=== PATIENT | female | born 1960 | race Caucasian/White ===

== ENCOUNTER 2022-01-16 02:38 | Inpatient (IN) | payer SELFPAY ==
[~2022-01-16] VITALS: Ht 170.2 cm; Wt 61.0 kg
[~2022-01-16 02:38] MED LIST: ASP325TEC PO; ATEN25TA PO; CLOP75TA PO; DRISDOL 50000 UNIT PO; FURO40TA4 PO; LEVE1U SQ; LISI5TAB PO; LVT.05T PO; MAGN400T6 PO; MTF500T PO; PHEN200T27 PO; POTA20TA15 PO; PRD20T PO; PRV20T PO; SULF-222 PO; SULF1TAB38 PO
[2022-01-16] MEDS ORDERED: NS IV 1000 ML 1,000 ML IV SCH ×5 (02:45→13:00)
--- NOTE | 2022-01-16 03:01 | ED General ---
General Chief Complaint: Respiratory Problems Stated Complaint: SOB Nursing Triage Note: Patient presented to the ER tonight via EMS with complaints of shortness of breath that began approximately 6 hours ago. Source of Information: Patient (LIMITED HISTORIAN), EMS, Old Records History of Present Illness Date Seen by Provider: Jan 16, 2022 Time Seen by Provider: 02:41 Initial Comments PT ARRIVES VIA EMS FROM HOME C/O SHORTNESS OF BREATH THAT BEGAN ABOUT 6 HOURS AGO WHEN SHE WAS MOVING [facility] EMS REPORT THAT PT WAS HYPERVENTILATING ON ARRIVAL AND THEY PLACED HER ON O2 AT 6L/NC--O2 SAT 96% ON 6L/NC--NO INITIAL O2 SAT OBTAINED PT HAS BEEN ON INSULIN IN THE PAST, BUT SHE QUIT TAKING IT OVER 11 YEARS AGO STATES SHE DOES NOT SEE A DR ANYWHERE AND HAS NOT BEEN TO A DR IN YEARS ACCUCHECK 452 BY EMS DOES STATE SHE IS ALWAYS THIRSTY AND URINATES FREQUENTLY, BUT NO PAIN/BURNING ON URINATION PT DENIES CHEST PAIN DENIES COUGH OR RECENT ILLNESS DENIES FEVER DENIES SORE THROAT DENIES GI SYMPTOMS DENIES SWELLING IN LEGS/FEET PT SMOKES 1 1/2 PPD DENIES ETOH OR DRUG USE PT HAS NOT BEEN HERE SINCE 2012 PT WAS LAST ADMITTED HERE IN 2009 WITH [place]--HAD CARDIAC CATH X 2 WITH STENTS PLACED. PT HAS NOT FOLLOWED UP WITH ANYONE SINCE THEN. PT HAS HAD COVID-19 VACCINE X 2--SECOND SHOT 11/18/2021 HAS ALSO HAD FLU SHOT THIS SEASON PCP: NONE Allergies and Home Medications Allergies Coded Allergies: No Known Drug Allergies (Unverified , 08/21/10) Patient Home Medication List Aspirin (Aspirin Ec 325 Mg) 325 Mg Tabec, 325 MG PO DAILY, (Reported) Entered as Reported by: THUY LIZAMA on 08/24/10 1017 Atenolol (Tenormin 25 Mg) 25 Mg Tablet, 25 MG PO DAILY, (Reported) Entered as Reported by: THUY LIZAMA on 08/24/10 1017 Clopidogrel Bisulfate (Plavix 75 Mg) 75 Mg Tablet, 75 MG PO DAILY, (Reported) Entered as Reported by: THUY LIZAMA on 08/24/10 1017 Furosemide (Furosemide) 40 Mg Tablet, 60 MG PO DAILY, (Reported) Entered as Reported by: THUY LIZAMA on 08/24/10 1017 Insulin Determir (Levemir Pen) 100 U/Ml Insuln.pen, 15 UNITS SQ HS, (Reported) Entered as Reported by: THUY LIZAMA on 08/24/10 1028 Levothyroxine Sodium (Levothyroxine 50 Mcg Tab) 50 Mcg Tablet, 1 EACH PO DAILY, (Reported) Entered as Reported by: COLT CRISTINA on 08/21/10 0913 Levothyroxine Sodium (Levothyroxine 50 Mcg Tab) 50 Mcg Tablet, 1 EACH PO DAILY Prescribed by: WINTER JENNINGS on 07/27/13 1702 Lisinopril (Zestril) 5 Mg Tablet, 5 MG PO DAILY, (Reported) Entered as Reported by: THUY LIZAMA on 08/24/10 101 Magnesium Oxide (Magnesium Oxide) 400 Mg Tablet, 400 MG PO DAILY, (Reported) Entered as Reported by: THUY LIZAMA on 08/24/10 1017 Metformin Hcl (Metformin 500 Mg) 500 Mg Tablet, 2 EACH PO BID WITH MEALS, (Reported) Entered as Reported by: COLT CRISTINA on 08/21/10 09 Phenazopyridine Hcl (Pyridium) 200 Mg Tablet, 1 EACH PO TID PRN Prescribed by: WINTER JENNINGS on 07/27/13 1657 Potassium Chloride (Potassium Chloride 20 Meq Tab) 20 Meq Tab.prt.sr, 20 MEQ PO DAILY, (Reported) Entered as Reported by: THUY LIZAMA on 08/24/10 101 Pravastatin Sodium (Pravachol) 20 Mg Tablet, 20 MG PO HS, (Reported) Entered as Reported by: THUY LIZAMA on 08/24/10 1017 Trimethoprim/Sulfamethoxazole (Bactrim Ds) 1 Ea Tablet, 1 EA PO BID Prescribed by: FAY BENNETT on 09/03/13 1542 Review of Systems Review of Systems Constitutional: no symptoms reported EENTM: no symptoms reported Respiratory: see HPI Cardiovascular: no symptoms reported Gastrointestinal: no symptoms reported Genitourinary: frequency Musculoskeletal: no symptoms reported Skin: no symptoms reported Psychiatric/Neurological: No Symptoms Reported Hematologic/Lymphatic: No Symptoms Reported Immunological/Allergic: no symptoms reported Past Snlsgxo-Psxhdf-Kinszj Hx Patient Social History Tobacco Use?: Yes Tobacco type used: Cigarettes Smoking Status: Current Everyday Smoker Substance use?: No Alcohol Use?: No Immunizations Up To Date Tetanus Booster (TDap): Unknown Seasonal Allergies Seasonal Allergies: No Past Medical History Surgery/Hospitalization HX: DIABETIC Surgeries: Yes Adenoidectomy, Cardiac, Coronary Stent, Tonsillectomy Respiratory: No Cardiac: Yes (STEMI 2009 WITH STENTS X 3 TO LAD; CHF) Cardiomyopathy, Coronary Artery Disease, Heart Attack, High Cholesterol, Hypertension Neurological: No Reproductive Disorders: No 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 MAYES-ANGIOPLASTY + STENT TO LAD; EF 25-30% -09/01/2010--CARDIAC CATH BY DR. MAYES--STENTS X 2 TO LAD; Physical Exam Vital Signs Vital Signs - First Documented 01/16/22 01/16/22 02:42 02:52 Temp 37.8 Pulse 113 Resp 28 B/P (MAP) 131/78 (95) Pulse Ox 93 O2 Delivery Nasal Cannula O2 Flow Rate 3.00 FiO2 100 Capillary Refill : Less Than 3 Seconds Height, Weight, BMI Height: '" Weight: 146lbs. oz. 66.593458wp; 20.00 BMI Method:Stated General Appearance: Thin, Other (MILD HYPERVENTILATION. PT REEKS OF CIGARETTES, IS DIRTY AND UNKEMPT, COVERED IN ANIMAL HAIR. SOMEWHAT LETHARGIC, VERY TALKATIVE, SPEECH IS CLEAR. ) HEENT: PERRL/EOMI, Other (ORAL MUCOSA DRY) Neck: Normal Inspection Respiratory: Normal Breath Sounds, No Accessory Muscle Use, No Respiratory Distress Cardiovascular: No JVD, No Murmur, Tachycardia Gastrointestinal: Non Tender, Soft Extremity: Pedal Edema (1+ BILATERALLY WITH CHRONIC VENOUS STASIS CHANGES BILATERALLY) Neurologic/Psychiatric: Alert, Oriented x3, No Motor/Sensory Deficits, cultural historian II- XII Norm as Tested Skin: Normal Color, Warm/Dry Focused Exam Lactate Level 01/16/22 02:50: Lactic Acid Level 2.28*H Lactic Acid Level Laboratory Tests Test 01/16/22 02:50 Lactic Acid Level 2.28 MMOL/L (0.50-2.00) *H Progress/Results/Core Measures Suspected Sepsis SIRS Temperature: Pulse: 113 Respiratory Rate: 28 Laboratory Tests 01/16/22 02:50: White Blood Count 10.8 Blood Pressure 131 /78 Mean: 95 01/16/22 02:50: Lactic Acid Level 2.28*H Laboratory Tests 01/16/22 02:50: Creatinine 1.14, INR Comment 1.0, Platelet Count 277, Total Bilirubin 0.6 Results/Orders Lab Results Laboratory Tests Test 01/16/22 02:47 01/16/22 02:50 01/16/22 02:54 01/16/22 02:57 Range/Units Glucometer 436 *H 70-110 MG/DL White Blood Count 10.8 4.3-11.0 10^3/uL Red Blood Count 4.33 3.80-5.11 10^6/uL Hemoglobin 12.6 11.5-16.0 g/dL Hematocrit 39 35-52 % Mean Corpuscular Volume 90 80-99 fL Mean Corpuscular Hemoglobin 29 25-34 pg Mean Corpuscular Hemoglobin Concent 32 32-36 g/dL Red Cell Distribution Width 14.1 10.0-14.5 % Platelet Count 277 130-400 10^3/uL Mean Platelet Volume 10.8 9.0-12.2 fL Immature Granulocyte % (Auto) 0 % Neutrophils (%) (Auto) 90 H 42-75 % Lymphocytes (%) (Auto) 5 L 12-44 % Monocytes (%) (Auto) 4 0-12 % Eosinophils (%) (Auto) 0 0-10 % Basophils (%) (Auto) 0 0-10 % Neutrophils # (Auto) 9.7 H 1.8-7.8 10^3/uL Lymphocytes # (Auto) 0.5 L 1.0-4.0 10^3/uL Monocytes # (Auto) 0.5 0.0-1.0 10^3/uL Eosinophils # (Auto) 0.0 0.0-0.3 10^3/uL Basophils # (Auto) 0.0 0.0-0.1 10^3/uL Immature Granulocyte # (Auto) 0.0 0.0-0.1 10^3/uL Neutrophils % (Manual) 87 % Lymphocytes % (Manual) 2 % Monocytes % (Manual) 3 % Band Neutrophils 8 % Blood Morphology Comment NORMAL Erythrocyte Sedimentation Rate 31 H 0-30 MM/HR Prothrombin Time 13.7 12.2-14.7 SEC INR Comment 1.0 0.8-1.4 Activated Partial Thromboplast Time 35 24-35 SEC D-Dimer 1.65 H 0.00-0.49 UG/ML Sodium Level 137 135-145 MMOL/L Potassium Level 3.6 3.6-5.0 MMOL/L Chloride Level 99 98-107 MMOL/L Carbon Dioxide Level 21 21-32 MMOL/L Anion Gap 17 H 5-14 MMOL/L Blood Urea Nitrogen 19 H 7-18 MG/DL Creatinine 1.14 0.60-1.30 MG/DL Estimat Glomerular Filtration Rate 55 BUN/Creatinine Ratio 17 Glucose Level 480 *H 70-105 MG/DL Lactic Acid Level 2.28 *H 0.50-2.00 MMOL/L Calcium Level 9.7 8.5-10.1 MG/DL Corrected Calcium 10.3 H 8.5-10.1 MG/DL Magnesium Level 1.7 1.6-2.4 MG/DL Total Bilirubin 0.6 0.1-1.0 MG/DL Aspartate Amino Transf (AST/SGOT) 15 5-34 U/L Alanine Aminotransferase (ALT/SGPT) 10 0-55 U/L Alkaline Phosphatase 108 40-136 U/L Lactate Dehydrogenase 210 125-220 U/L Total Creatine Kinase 29 29-168 U/L Creatine Kinase MB 1.6 <6.6 NG/ML Myoglobin 96.7 H 10.0-92.0 NG/ML Troponin I 0.055 H <0.028 NG/ML C-Reactive Protein High Sensitivity 17.04 H 0.00-0.50 MG/DL B-Type Natriuretic Peptide 644.3 H <100.0 PG/ML Total Protein 7.1 6.4-8.2 GM/DL Albumin 3.2 3.2-4.5 GM/DL Amylase Level 29 25-125 U/L Lipase 18 8-78 U/L Beta-Hydroxybutyrate (Chem panel) 0.98 H 0.00-0.27 MMOL/L Procalcitonin 0.15 H <0.10 NG/ML Free Thyroxine 0.96 0.70-1.48 NG/DL TSH [place] Testing 8.18 H 0.35-4.94 UIU/ML Acetaminophen Level < 10 L 10-30 UG/ML Serum Alcohol < 10 <10 MG/DL Influenza Type A (RT-PCR) Not Detected Not Detecte Influenza Type B (RT-PCR) Not Detected Not Detecte SARS-CoV-2 RNA (RT-PCR) Not Detected Not Detecte Urine Color YELLOW Urine Clarity CLEAR Urine pH 6.0 5-9 Urine Specific [place] 1.025 H 1.016-1.022 Urine Protein 2+ H NEGATIVE Urine Glucose (UA) 3+ H NEGATIVE Urine Ketones 1+ H NEGATIVE Urine Nitrite POSITIVE H NEGATIVE Urine Bilirubin NEGATIVE NEGATIVE Urine Urobilinogen 1.0 < = 1.0 MG/DL Urine Leukocyte Esterase 1+ H NEGATIVE Urine RBC (Auto) TRACE-I H NEGATIVE Urine RBC RARE /HPF Urine WBC 50-100 H /HPF Urine Crystals NONE /LPF Urine Bacteria LARGE H /HPF Urine Casts NONE /LPF Urine Mucus NEGATIVE /LPF Urine Culture Indicated CULTURE PENDING Urine Opiates Screen NEGATIVE NEGATIVE Urine Oxycodone Screen NEGATIVE NEGATIVE Urine Methadone Screen NEGATIVE NEGATIVE Urine Propoxyphene Screen NEGATIVE NEGATIVE Urine Barbiturates Screen NEGATIVE NEGATIVE Ur Tricyclic Antidepressants Screen NEGATIVE NEGATIVE Urine Phencyclidine Screen NEGATIVE NEGATIVE Urine Amphetamines Screen NEGATIVE NEGATIVE Urine Methamphetamines Screen NEGATIVE NEGATIVE Urine Benzodiazepines Screen NEGATIVE NEGATIVE Urine Cocaine Screen NEGATIVE NEGATIVE Urine Cannabinoids Screen NEGATIVE NEGATIVE Test 01/16/22 03:00 Range/Units Blood Gas Puncture Site RIGHT RADIAL Blood Gas Patient Temperature 37.8 Arterial Blood pH 7.43 7.37-7.43 Arterial Blood Partial Pressure CO2 38 35-45 MMHG Arterial Blood Partial Pressure O2 68 L 79-93 MMHG Arterial Blood HCO3 24 23-27 MMOL/L Arterial Blood Total CO2 25.2 21.0-31.0 MMOL/L Arterial Blood Oxygen Saturation 94 94-100 % Arterial Blood Base Excess 0.3 -2.5-2.5 MMOL/L [place] Test YES-POS Blood Gas Ventilator Setting NO Blood Gas Inspired Oxygen 2L My Orders Orders - ANAI AHUJA DO Accucheck Stat ONCE (01/16/22 02:41) Ed Iv/Invasive Line Start (01/16/22 02:41) Ekg Tracing (01/16/22 02:41) Catheter(Urinary) Insert & Ass 03,15 (01/16/22 02:41) O2 (01/16/22 02:41) Monitor-Rhythm Ecg Trace Only (01/16/22 02:41) Chest 1 View, Ap/Pa Only (01/16/22 02:41) Acetaminophen (01/16/22 02:41) Alcohol (01/16/22 02:41) Amylase (01/16/22 02:41) Arterial Blood Gas (01/16/22 02:41) Bnp [place] (01/16/22 02:41) Cbc With Automated Diff (01/16/22 02:41) Comprehensive Metabolic Panel (01/16/22 02:41) Creatine Kinase (01/16/22 02:41) Creatine Kinase Mb (01/16/22 02:41) Hs C Reactive Protein (01/16/22 02:41) Fibrin Degradation Products (01/16/22 02:41) Drug Screen Stat (Urine) (01/16/22 02:41) Lactic Acid Analyzer (01/16/22 02:41) Lipase (01/16/22 02:41) Magnesium (01/16/22 02:41) Procalcitonin (Pct) (01/16/22 02:41) Protime With Inr (01/16/22 02:41) Partial Thromboplastin Time (01/16/22 02:41) Thyroid Analyzer (01/16/22 02:41) Ua Culture If Indicated (01/16/22 02:41) Erythrocyte Sedimentation Rate (01/16/22 02:41) Myoglobin Serum (01/16/22 02:41) Troponin I [place] (01/16/22 02:41) Ed Iv/Invasive Line Start (01/16/22 02:41) Ns Iv 1000 Ml (Sodium Chloride 0.9%) (01/16/22 02:45) LDH (01/16/22 02:41) Covid 19 Inhouse Test (01/16/22 02:41) Influenza A And B By Pcr (01/16/22 02:41) Isolation Central Supply Req (01/16/22 02:41) Beta Hydroxybutyrate (01/16/22 02:41) Hemoglobin A1c (01/16/22 02:41) Blood Culture (01/16/22 02:41) Urine Culture (01/16/22 03:03) Acetaminophen Tablet (Tylenol Tablet) (01/16/22 03:15) Ed Iv/Invasive Line Start (01/16/22 03:03) Vital Signs Adult Sepsis Patie Q15M (01/16/22 03:03) O2 (01/16/22 03:03) Remove Rings In Anticipation O (01/16/22 03:03) Manual Differential (01/16/22 02:50) Ed Iv/Invasive Line Start (01/16/22 03:52) Ns Iv 1000 Ml (Sodium Chloride 0.9%) (01/16/22 04:00) Insulin (Regular) Human (Novolin R (Per (01/16/22 04:00) Free T4 (Free Thyroxine) (01/16/22 02:50) Furosemide Injection (Lasix Injection) (01/16/22 04:00) Ceftriaxone 1 Gm Pre-Mix (Rocephin 1 Gm (01/16/22 03:59) Medications Given in ED Current Medications Medications Dose Ordered Sig/Vasile Route Start Time Stop Time Status Last Admin Dose Admin Acetaminophen 1,000 mg ONCE PRN PO 01/16/22 03:15 01/16/22 04:09 DC 01/16/22 04:08 1,000 MG Furosemide 80 mg ONCE ONCE IVP 01/16/22 04:00 01/16/22 04:01 DC 01/16/22 04:16 80 MG Insulin Human Regular 20 unit ONCE ONCE IV 01/16/22 04:00 01/16/22 04:01 DC 01/16/22 04:09 20 UNIT Vital Signs/I&O 01/16/22 01/16/22 01/16/22 02:42 02:42 02:52 Temp 37.8 Pulse 113 Resp 28 B/P (MAP) 131/78 (95) Pulse Ox 93 94 O2 Delivery Nasal Cannula Nasal Cannula Nasal Cannula O2 Flow Rate 3.00 3.00 3.00 FiO2 100 Capillary Refill : Less Than 3 Seconds Blood Pressure Mean: 95 Progress Note : Progress Note TEMP 100 ON ARRIVAL, SEPSIS PROTOCOL INITIATED O2 SAT 91% ON 2L/NC--UP TO 96% ON 4L/NC BLOOD GLUCOSE 439 ON ARRIVAL HERE GIVEN IV FLUIDS AND INSULIN REPEAT GLUCOSE 264 AT TIME OF ADMIT GIVEN LASIX FOR CHF GIVEN ROCEPHIN FOR UTI GIVEN LOVENOX FOR ANTICOAGULATION WITH ELEVATED TROPONIN AND D-DIMER NO DETERIORATION IN PT'S CONDITION DURING ER STAY PT TAKEN FROM ER TO XRAY DEPT FOR CT CHEST ANGIOGRAM AND THEN UP TO ICU--NO CT REPORT AT TIME OF ADMIT. PT STATES SHE WISHES TO BE A FULL CODE ECG Initial ECG Impression Date: Jan 16, 2022 Initial ECG Impression Time: 02:45 Initial ECG Rate: 116 Initial ECG Rhythm: S.Tach Initial ECG Impression: Nonspecific Changes Departure Departure-Patient Inst. Referrals: [facility] (PCP/Family) Primary Care Physician ANAI AHUJA DO Jan 16, 2022 03:01
[2022-01-16 03:08] LABS: BASOPHILS % (AUTO) 0 % (0-10); EOSINOPHILS % (AUTO) 0 % (0-10); HEMATOCRIT 39 % (35-52); HEMOGLOBIN 12.6 g/dL (11.5-16.0); LYMPHOCYTES # (AUTO) 0.5 10^3/uL (1.0-4.0); LYMPHOCYTES % (AUTO) 5 % (12-44); MEAN CORPUSCULAR HEMOGLOBIN 29 pg (25-34); MEAN CORPUSCULAR HGB CONC 32 g/dL (32-36); MEAN CORPUSCULAR VOLUME 90 fL (80-99); MEAN PLATELET VOLUME 10.8 fL (9.0-12.2); MONOCYTES # (AUTO) 0.5 10^3/uL (0.0-1.0); MONOCYTES % (AUTO) 4 % (0-12); NEUTROPHILS # (AUTO) 9.7 10^3/uL (1.8-7.8); NEUTROPHILS % (AUTO) 90 % (42-75); PLATELET COUNT 277 10^3/uL (130-400); WHITE BLOOD COUNT 10.8 10^3/uL (4.3-11.0)
[2022-01-16 03:09] LABS: BILIRUBIN,URINE NEGATIVE (NEGATIVE); CLARITY,URINE CLEAR; COLOR,URINE YELLOW; GLUCOSE, URINE (UA) 3+ (NEGATIVE); KETONES,URINE 1+ (NEGATIVE); LEUKOCYTE ESTERASE ,URINE 1+ (NEGATIVE); NITRITE,URINE POSITIVE (NEGATIVE); PROTEIN,URINE 2+ (NEGATIVE)
[2022-01-16] MEDS ORDERED: ACETAMINOPHEN 500 MG TAB (TYLENOL) PO PRN ×2 (03:15→05:30)
[2022-01-16 03:24] LABS: ALBUMIN 3.2 GM/DL (3.2-4.5); CHLORIDE 99 MMOL/L (98-107); POTASSIUM 3.6 MMOL/L (3.6-5.0); SODIUM 137 MMOL/L (135-145)
[2022-01-16 03:25] LABS: CALCIUM 9.7 MG/DL (8.5-10.1); FIBRIN DEGRADATION PRODUCTS 1.65 UG/ML (0.00-0.49); PROTHROMBIN TIME PATIENT 13.7 SEC (12.2-14.7)
[2022-01-16 03:26] LABS: AMYLASE 29 U/L (25-125)
[2022-01-16 03:27] LABS: TOTAL PROTEIN 7.1 GM/DL (6.4-8.2)
[2022-01-16 03:28] LABS: BILIRUBIN,TOTAL 0.6 MG/DL (0.1-1.0); CARBON DIOXIDE 21 MMOL/L (21-32)
[2022-01-16 03:28] LABS: AMPHETAMINE SCREEN, URINE NEGATIVE (NEGATIVE); BARBITURATE SCREEN URINE NEGATIVE (NEGATIVE); BENZODIAZEPINES SCREEN URINE NEGATIVE (NEGATIVE); CANNABINOID SCREEN, URINE NEGATIVE (NEGATIVE); COCAINE SCREEN URINE NEGATIVE (NEGATIVE); METHADONE STAT NEGATIVE (NEGATIVE); METHAMPHETAMINE SCREEN URINE S NEGATIVE (NEGATIVE); OPIATE SCREEN URINE NEGATIVE (NEGATIVE); OXYCODONE STAT NEGATIVE (NEGATIVE); PROPOXYPHENE STAT NEGATIVE (NEGATIVE); TRICYCLIC ANTIDEPRESSANTS SCRE NEGATIVE (NEGATIVE)
[2022-01-16 03:30] LABS: ABG BASE EXCESS 0.3 MMOL/L (-2.5-2.5); ABG OXYGEN SATURATION 94 % (94-100); ABG PCO2 38 MMHG (35-45); ABG PH 7.43 (7.37-7.43); ABG PO2 68 MMHG (79-93); ABG TCO2 25.2 MMOL/L (21.0-31.0)
[2022-01-16 03:30] LABS: ALKALINE PHOSPHATASE 108 U/L (40-136); CREATININE SERUM 1.14 MG/DL (0.60-1.30); GFR ESTIMATED 55
[2022-01-16 03:31] LABS: BUN/CREATININE RATIO 17
[2022-01-16 03:32] LABS: ALLENS TEST YES-POS; INSPIRED O2 2L; PATIENT TEMP 37.8; VENTILATOR NO
[2022-01-16 03:33] LABS: ALANINE AMINOTRANSFERASE 10 U/L (0-55); MAGNESIUM 1.7 MG/DL (1.6-2.4)
[2022-01-16 03:35] LABS: CREATINE KINASE 29 U/L (29-168); LIPASE 18 U/L (8-78)
[2022-01-16 03:42] LABS: CREATINE KINASE MB 1.6 NG/ML (<6.6)
[2022-01-16 03:43] LABS: BAND NEUTROPHILS 8 %; LYMPHOCYTES % (MANUAL) 2 %; MONOCYTES % (MANUAL) 3 %; NEUTROPHILS % (MANUAL) 87 %; RBC MORPH NORMAL
[2022-01-16 03:45] LABS: ACETAMINOPHEN < 10 UG/ML (10-30); GLUCOSE 480 MG/DL (70-105)
[2022-01-16 03:46] LABS: BACTERIA,URINE LARGE /HPF; RBC,URINE RARE /HPF; WBC,URINE 50-100 /HPF
[2022-01-16 03:49] LABS: ERYTHROCYTE SEDIMENTATION RATE 31 MM/HR (0-30)
[2022-01-16 03:55] LABS: TSH (THYROID ANALYZER) 8.18 UIU/ML (0.35-4.94)
[2022-01-16] MEDS ORDERED: cefTRIAXone 1 GM PRE-MIX 50 ML IV STA (03:59)
[2022-01-16] MEDS ORDERED: inSUlin (REGULAR) HUMAN 1 UNIT/0.01 ML (CHARGE PER UNIT) IV ONE (04:00)
[2022-01-16] MEDS ORDERED: FUROSEMIDE 40 MG/4 ML INJ (LASIX) IVP ONE (04:00)
[2022-01-16] MEDS ORDERED: ENOXAPARIN 60 MG/0.6 ML (LOVENOX) SYR SC ONE (04:15)
[2022-01-16 04:33] LABS: FREE T4 (FREE THYROXINE) 0.96 NG/DL (0.70-1.48)
[2022-01-16] MEDS: VASOPRESSIN INJECTION 20 UNIT in NS (IVPB) 100 ML IV SCH ×2 (05:10→17:07)
[2022-01-16] MEDS: NOREPINEPHRINE 8 MG/250 ML 250 ML IV SCH (05:10)
[2022-01-16] MEDS ORDERED: morphine INJ 4 MG/ML 1 ML (VIAL/SYRINGE) IV PRN (05:30)
[2022-01-16] MEDS ORDERED: NITROGLYCERIN 0.4 MG SL TABS BTL 25'S SL PRN (05:30)
[2022-01-16] MEDS ORDERED: EPINEPHrine 1 MG INJECTION 4 MG in NS (IVPB) 248 ML IV SCH (05:30)
[2022-01-16] MEDS ORDERED: ONDANSETRON 4 MG/2 ML (SDV) Z0FRAN IV PRN (05:30)
[2022-01-16] MEDS ORDERED: IOHEXOL 350 MG/ML 100 ML (OMNIPAQUE 350) VIAL IV ONE (05:45)
[2022-01-16] MEDS ORDERED: NS 100 ML (IVPB) BAG IV ONE (05:45)
[2022-01-16] MEDS ORDERED: HOLD METFORMIN - RECEIVED CONTRAST 20 ML VIAL IV SCH (05:45)
[2022-01-16] MEDS ORDERED: inSUlin ASPART (NovoLOG) 1 UNIT/0.01 ML (CHARGE PER UNIT) SC SCH (06:00)
[2022-01-16] MEDS: inSUlin ASPART (NovoLOG) 1 UNIT/0.01 ML (CHARGE PER UNIT) SC SCH ×3 (06:45→18:42)
[2022-01-16] MEDS: PANTOPRAZOLE 40 MG (PROTONIX) VIAL IV SCH (06:58)
--- NOTE | 2022-01-16 07:22 | Diagnostic Imaging Report ---
INDICATION: DYSPNEA. TECHNIQUE: Single view chest 3:50 AM. CORRELATION STUDY: 08/21/2010 FINDINGS: Heart size remains enlarged, mediastinum prominent. There is presence of pulmonary vascular congestion and perihilar edema. Bilateral pulmonary opacities particularly in the more central aspect of the lung ma. Prominent interstitial markings favoring edema. IMPRESSION: 1. Findings consistent with a likely pulmonary vascular congestion with a perihilar with pulmonary and interstitial edema. Superimposed infiltrate not excluded. Dictated by: Dictated on workstation # [id number]
--- NOTE | 2022-01-16 07:42 | Diagnostic Imaging Report ---
PROCEDURE: CT angiography of the chest with contrast. TECHNIQUE: Multiple contiguous axial images were obtained through the chest after uneventful bolus administration of intravenous contrast. 3D reconstructed CTA MIP acquisitions were also performed. Auto Exposure Controls were utilized during the CT exam to meet ALARA standards for radiation dose reduction. FINDINGS: There are no central or proximal segmental pulmonary emboli. There is atherosclerotic disease along the aorta. Multiple ulcerations noted along the descending aorta. No dissection. There is lymphadenopathy within the mediastinum and the perihilar regions bilaterally. There are bilateral pleural effusions right greater than left. Within the lungs diffuse scattered patchy airspace opacity seen throughout both lungs possibly due to COVID although nonspecific. There are also increased interstitial/coarsened interstitial markings suspicious for pulmonary edema. Upper abdominal structures unremarkable for acute abnormality. There is no acute osseous abnormality. IMPRESSION: 1. No evidence for pulmonary embolus. 2. Diffuse bilateral nonspecific infiltrates possibly due to COVID although other etiologies not excluded. 3. Bilateral pleural effusions with lymphadenopathy likely reactive. Followup recommended. 4. Atherosclerotic disease with areas of at least moderate if not significant stenosis of the left subclavian artery not mentioned in the body of the report. Pertinent findings agree with the preliminary report. Dictated by: Dictated on workstation # [id number]
[2022-01-16 08:48] LABS: CHOLESTEROL 96 MG/DL (< 200); HDL CHOLESTEROL 27 MG/DL (40-60); TRIGLYCERIDES 83 MG/DL (<150); VLDL CHOLESTEROL 17 MG/DL (5-40)
[2022-01-16] MEDS: ASPIRIN E.C. 81 MG (ECOTRIN) TAB PO SCH (09:05)
[2022-01-16] MEDS: KCL 20 MEQ TAB (K-DUR) PO SCH (09:05)
[2022-01-16] MEDS: MAGNESIUM 1 GM/100 ML IVPB 100 ML IV SCH (09:06)
[2022-01-16] MEDS: POTASSIUM CL 10MEQ/50ML IVPB 50 ML IV SCH (09:45)
--- NOTE | 2022-01-16 09:50 | Consultation-Cardiology ---
HPI-Cardiology Cardiology Consultation: Date of Consultation 01/16/22 Date of Admission 01/16/2022 Attending Physician Dalia Coppola MD Admitting Physician [place]/Count Includes [facility] Consulting Physician JACQUELYN OSORIO JR, MD HPI: Time Seen by a Provider: 09:45 Chief Complaint: Reason for consultation: Non-ST elevation myocardial infarction. I had the pleasure of seeing Gretta in the intensive care unit at [facility] in [place], [place] this morning. She has a history of coronary artery disease with a non-ST elevation myocardial infarction in 2009 and was treated w ith a drug-eluting stent to the left anterior descending coronary artery and later the left circumflex coronary artery at that time. She also has a history of ischemic cardiomyopathy with an ejection fraction of approximately 25% in 2009. She has not seen any physicians in a number of years. Yesterday she was at home and started developing shortness of breath while at rest. This gradually progressed throughout the evening and early this morning she was having such a difficult time breathing that she came to the emergency room for further evaluation. Her initial troponin level was mildly elevated but this morning, her troponin level has become much more significantly elevated. Because of the concern for non-ST elevation myocardial infarction, a cardiology consultation was requested. Her breathing is starting to improve. She denies any chest discomfort. She denies paroxysmal nocturnal dyspnea, orthopnea, palpitations, lightheadedness, syncope, or lower extremity edema. She smokes 1- 1/2 packs of cigarettes per day but states she will quit. She has been taking an Excedrin every day for general body aches but no prescription medications. Certain portions of this document may have been dictated utilizing voice recognition technology. Inherent to this technology, typographical and grammatical errors may exist. As much as I am diligent to identify and correct these mistakes, some errors may remain in the document. Review of Systems-Cardiology Review of Systems Other comments Review of 10 organ systems is as per the history of present illness, otherwise negative. [id number] Hx Patient Social History Smoking Status: Current Everyday Smoker Have you traveled recently?: No Alcohol Use?: No Pt feels they are or have been: No Tobacco type used: Cigarettes Immunizations Up To Date Tetanus Booster (TDap): Unknown Past Medical History PMH As described under Assessment. Family Medical History Family Medical History: The patient does not know of any family history of premature coronary artery disease in first-degree relatives. Allergies and Home Medications Allergies Coded Allergies: No Known Drug Allergies (Unverified , 08/21/10) Patient Home Medication List Home Medication List Reviewed: Yes Aspirin (Aspirin Ec 325 Mg) 325 Mg Tabec, 325 MG PO DAILY, (Reported) Entered as Reported by: THUY LIZAMA on 08/24/10 1017 Atenolol (Tenormin 25 Mg) 25 Mg Tablet, 25 MG PO DAILY, (Reported) Entered as Reported by: THUY LIZAMA on 08/24/10 101 Clopidogrel Bisulfate (Plavix 75 Mg) 75 Mg Tablet, 75 MG PO DAILY, (Reported) Entered as Reported by: THUY LIZAMA on 08/24/10 101 Furosemide (Furosemide) 40 Mg Tablet, 60 MG PO DAILY, (Reported) Entered as Reported by: THUY LIZAMA on 08/24/10 1017 Insulin Determir (Levemir Pen) 100 U/Ml Insuln.pen, 15 UNITS SQ HS, (Reported) Entered as Reported by: THUY LIZAMA on 08/24/10 1028 Levothyroxine Sodium (Levothyroxine 50 Mcg Tab) 50 Mcg Tablet, 1 EACH PO DAILY, (Reported) Entered as Reported by: COLT CRISTINA on 08/21/10 09 Levothyroxine Sodium (Levothyroxine 50 Mcg Tab) 50 Mcg Tablet, 1 EACH PO DAILY Prescribed by: WINTER JENNINGS on 07/27/13 1702 Lisinopril (Zestril) 5 Mg Tablet, 5 MG PO DAILY, (Reported) Entered as Reported by: THUY LIZAMA on 08/24/10 101 Magnesium Oxide (Magnesium Oxide) 400 Mg Tablet, 400 MG PO DAILY, (Reported) Entered as Reported by: THUY LIZAMA on 08/24/10 101 Metformin Hcl (Metformin 500 Mg) 500 Mg Tablet, 2 EACH PO BID WITH MEALS, (Reported) Entered as Reported by: COLT CRISTINA on 08/21/10 09 Phenazopyridine Hcl (Pyridium) 200 Mg Tablet, 1 EACH PO TID PRN Prescribed by: WINTER JENNINGS on 07/27/13 165 Potassium Chloride (Potassium Chloride 20 Meq Tab) 20 Meq Tab.prt.sr, 20 MEQ PO DAILY, (Reported) Entered as Reported by: THUY LIZAMA on 08/24/10 1017 Pravastatin Sodium (Pravachol) 20 Mg Tablet, 20 MG PO HS, (Reported) Entered as Reported by: THUY LIZAMA on 08/24/10 1017 Trimethoprim/Sulfamethoxazole (Bactrim Ds) 1 Ea Tablet, 1 EA PO BID Prescribed by: FAY BENNETT on 09/03/13 1542 Exam Vital Signs Vital Signs Date Time Temp Pulse Resp B/P (MAP) Pulse Ox O2 Delivery O2 Flow Rate FiO2 01/16/22 09:00 86 29 135/82 100 Nasal Cannula 3.00 01/16/22 05:30 37.0 01/16/22 02:52 100 Physical Exam General: Alert. No acute distress. Well nourished and appears stated age. She appears older than her stated age. Eye: Extraocular movements are intact. Conjunctivae are clear. There are no xanthelasma. HENT: Normocephalic. Atraumatic. Carotid pulsations 2/2 without bruits. Neck: Jugular venous pressure does not appear elevated. No thyromegaly appreciated. Respiratory: Lungs are clear to auscultation. Respirations are non-labored. Breath sounds are equal. Symmetrical chest wall expansion. Cardiovascular: Normal rate. Regular rhythm. No murmur. No gallop. Point of maximal impulse is not appear displaced. Good pulses equal in all extremities. No edema. Gastrointestinal: Soft. Normal bowel sounds. Skin: Skin turgor is normal. There is no pallor. Musculoskeletal: No kyphosis or scoliosis appreciated. Neurologic: Alert and oriented to person, place, time. Cranial nerves 3-12 appear grossly intact. The patient has good motor tone strength in the upper and lower extremities bilaterally. Psychiatric: Cooperative. Appropriate mood & affect. Labs Laboratory Tests Test 01/16/22 02:47 01/16/22 02:50 01/16/22 02:54 01/16/22 02:57 Range/Units Glucometer 436 *H 70-110 MG/DL White Blood Count 10.8 4.3-11.0 10^3/uL Red Blood Count 4.33 3.80-5.11 10^6/uL Hemoglobin 12.6 11.5-16.0 g/dL Hematocrit 39 35-52 % Mean Corpuscular Volume 90 80-99 fL Mean Corpuscular Hemoglobin 29 25-34 pg Mean Corpuscular Hemoglobin Concent 32 32-36 g/dL Red Cell Distribution Width 14.1 10.0-14.5 % Platelet Count 277 130-400 10^3/uL Mean Platelet Volume 10.8 9.0-12.2 fL Immature Granulocyte % (Auto) 0 % Neutrophils (%) (Auto) 90 H 42-75 % Lymphocytes (%) (Auto) 5 L 12-44 % Monocytes (%) (Auto) 4 0-12 % Eosinophils (%) (Auto) 0 0-10 % Basophils (%) (Auto) 0 0-10 % Neutrophils # (Auto) 9.7 H 1.8-7.8 10^3/uL Lymphocytes # (Auto) 0.5 L 1.0-4.0 10^3/uL Monocytes # (Auto) 0.5 0.0-1.0 10^3/uL Eosinophils # (Auto) 0.0 0.0-0.3 10^3/uL Basophils # (Auto) 0.0 0.0-0.1 10^3/uL Immature Granulocyte # (Auto) 0.0 0.0-0.1 10^3/uL Neutrophils % (Manual) 87 % Lymphocytes % (Manual) 2 % Monocytes % (Manual) 3 % Band Neutrophils 8 % Blood Morphology Comment NORMAL Erythrocyte Sedimentation Rate 31 H 0-30 MM/HR Prothrombin Time 13.7 12.2-14.7 SEC INR Comment 1.0 0.8-1.4 Activated Partial Thromboplast Time 35 24-35 SEC D-Dimer 1.65 H 0.00-0.49 UG/ML Sodium Level 137 135-145 MMOL/L Potassium Level 3.6 3.6-5.0 MMOL/L Chloride Level 99 98-107 MMOL/L Carbon Dioxide Level 21 21-32 MMOL/L Anion Gap 17 H 5-14 MMOL/L Blood Urea Nitrogen 19 H 7-18 MG/DL Creatinine 1.14 0.60-1.30 MG/DL Estimat Glomerular Filtration Rate 55 BUN/Creatinine Ratio 17 Glucose Level 480 *H 70-105 MG/DL Lactic Acid Level 2.28 *H 0.50-2.00 MMOL/L Calcium Level 9.7 8.5-10.1 MG/DL Corrected Calcium 10.3 H 8.5-10.1 MG/DL Magnesium Level 1.7 1.6-2.4 MG/DL Total Bilirubin 0.6 0.1-1.0 MG/DL Aspartate Amino Transf (AST/SGOT) 15 5-34 U/L Alanine Aminotransferase (ALT/SGPT) 10 0-55 U/L Alkaline Phosphatase 108 40-136 U/L Lactate Dehydrogenase 210 125-220 U/L Total Creatine Kinase 29 29-168 U/L Creatine Kinase MB 1.6 <6.6 NG/ML Myoglobin 96.7 H 10.0-92.0 NG/ML Troponin I 0.055 H <0.028 NG/ML C-Reactive Protein High Sensitivity 17.04 H 0.00-0.50 MG/DL B-Type Natriuretic Peptide 644.3 H <100.0 PG/ML Total Protein 7.1 6.4-8.2 GM/DL Albumin 3.2 3.2-4.5 GM/DL Amylase Level 29 25-125 U/L Lipase 18 8-78 U/L Beta-Hydroxybutyrate (Chem panel) 0.98 H 0.00-0.27 MMOL/L Procalcitonin 0.15 H <0.10 NG/ML Free Thyroxine 0.96 0.70-1.48 NG/DL TSH [place] Testing 8.18 H 0.35-4.94 UIU/ML Acetaminophen Level < 10 L 10-30 UG/ML Serum Alcohol < 10 <10 MG/DL Influenza Type A (RT-PCR) Not Detected Not Detecte Influenza Type B (RT-PCR) Not Detected Not Detecte SARS-CoV-2 RNA (RT-PCR) Not Detected Not Detecte Urine Color YELLOW Urine Clarity CLEAR Urine pH 6.0 5-9 Urine Specific [place] 1.025 H 1.016-1.022 Urine Protein 2+ H NEGATIVE Urine Glucose (UA) 3+ H NEGATIVE Urine Ketones 1+ H NEGATIVE Urine Nitrite POSITIVE H NEGATIVE Urine Bilirubin NEGATIVE NEGATIVE Urine Urobilinogen 1.0 < = 1.0 MG/DL Urine Leukocyte Esterase 1+ H NEGATIVE Urine RBC (Auto) TRACE-I H NEGATIVE Urine RBC RARE /HPF Urine WBC 50-100 H /HPF Urine Crystals NONE /LPF Urine Bacteria LARGE H /HPF Urine Casts NONE /LPF Urine Mucus NEGATIVE /LPF Urine Culture Indicated CULTURE PENDING Urine Opiates Screen NEGATIVE NEGATIVE Urine Oxycodone Screen NEGATIVE NEGATIVE Urine Methadone Screen NEGATIVE NEGATIVE Urine Propoxyphene Screen NEGATIVE NEGATIVE Urine Barbiturates Screen NEGATIVE NEGATIVE Ur Tricyclic Antidepressants Screen NEGATIVE NEGATIVE Urine Phencyclidine Screen NEGATIVE NEGATIVE Urine Amphetamines Screen NEGATIVE NEGATIVE Urine Methamphetamines Screen NEGATIVE NEGATIVE Urine Benzodiazepines Screen NEGATIVE NEGATIVE Urine Cocaine Screen NEGATIVE NEGATIVE Urine Cannabinoids Screen NEGATIVE NEGATIVE Test 01/16/22 03:00 01/16/22 06:14 01/16/22 06:40 01/16/22 08:17 Range/Units Blood Gas Puncture Site RIGHT RADIAL Blood Gas Patient Temperature 37.8 Arterial Blood pH 7.43 7.37-7.43 Arterial Blood Partial Pressure CO2 38 35-45 MMHG Arterial Blood Partial Pressure O2 68 L 79-93 MMHG Arterial Blood HCO3 24 23-27 MMOL/L Arterial Blood Total CO2 25.2 21.0-31.0 MMOL/L Arterial Blood Oxygen Saturation 94 94-100 % Arterial Blood Base Excess 0.3 -2.5-2.5 MMOL/L [place] Test YES-POS Blood Gas Ventilator Setting NO Blood Gas Inspired Oxygen 2L Lactic Acid Level 1.83 0.50-2.00 MMOL/L Glucometer 170 H 70-110 MG/DL Troponin I 17.564 *H <0.028 NG/ML Triglycerides Level 83 <150 MG/DL Cholesterol Level 96 < 200 MG/DL LDL Cholesterol Direct 61 1-129 MG/DL VLDL Cholesterol 17 5-40 MG/DL HDL Cholesterol 27 L 40-60 MG/DL ECG Impression ECG Comment Sinus rhythm with probable old anterior myocardial infarction with subtle anterior ST elevation. Diagnosis/Problems Diagnosis/Problems (1) Non-ST elevation myocardial infarction (NSTEMI), initial care episode Assessment & Plan: Her troponin levels are rising. She has known coronary artery disease as outlined above. This is concerning for an evolving non-ST elevation myocardial infarction. Her shortness of breath may have been atypical angina. I recommend further evaluation with a cardiac catheterization. In the interim, we will continue aspirin and enoxaparin. I will start low-dose beta- liang. Although her cholesterol level is quite low, I also recommend at least moderate dose statin medication. (2) Cardiomyopathy Assessment & Plan: She has a previous history of severe cardiomyopathy. Echocardiogram is ordered and currently pending. (3) Coronary artery disease with unstable angina pectoris Assessment & Plan: We will proceed as above. (4) Cigarette smoker Assessment & Plan: She needs to quit smoking. She was counseled in this regard. She states that she plans to quit smoking after this hospitalization. JACQUELYN OSORIO JR, MD Jan 16, 2022 09:50
--- NOTE | 2022-01-16 09:57 | Pre-Op Note & Conscious Sedat ---
Pre-Operative Progress Note H&P Reviewed The H&P was reviewed, patient examined and no changes noted. Date H&P Reviewed: Jan 16, 2022 Time H&P Reviewed: 09:56 Pre-Op Diagnosis: NSTEMI and cardiomyopathy. Conscious Sedation Pre-Proced ASA Score 3 For ASA 3 and 4: Consider anesthesia and medical clearance. Also, for patients with a history of failed moderate sedation consider anesthesia. Airway Lungs Heart ASA score ASA 1: a normal healthy patient ASA 2: a patient with a mild systemic disease (mid diabetes, controlled hypertension, obesity ASA 3: a patient with a severe systemic disease that limits activity (angina, COPD, prior Myocardial infarction) ASA 4: a patient with an incapacitating disease that is a constant threat to life (CHF, renal failure) ASA 5: a moribund patient not expected to survive 24 hrs. (ruptured aneurysm) ASA 6: a declared brain- patient whose organs are being harvested. For emergent operations, add the letter E after the classification Mallampati Classification Grade 1 Sedation Plan Analgesia, Amnesia, Plan communicated to team members, Discussed options with patient/fam, Discussed risks with patient/fam The patient is an appropriate candidate to undergo the planned procedure, sedation, and anesthesia. The patient immediately re-assessed prior to indication. JACQUELYN OSORIO JR, MD Jan 16, 2022 09:57
[2022-01-16] MEDS ORDERED: NS IV 1000 ML 1,000 ML IV ONE (10:00)
[2022-01-16] MEDS ORDERED: HEParin (CATH LAB) 2,000 ML IV ONE (10:42)
[2022-01-16] MEDS ORDERED: LIDOCAINE 2% 20 ML (XYLOCAINE) VIAL ONE (10:42)
[2022-01-16] MEDS ORDERED: fentaNYL INJ 100 MCG/2 ML AMP ONE (10:46)
[2022-01-16] MEDS ORDERED: VERAPAMIL 5 MG/2 ML (CALAN) VIAL IV ONE (10:46)
[2022-01-16] MEDS ORDERED: MIDAZOLAM 5 MG/5 ML (VERSED) VIAL ONE (10:47)
[2022-01-16] MEDS ORDERED: NITRO DRIP 25000 MCG/D5W 250 ML IV ONE (10:47)
[2022-01-16] MEDS ORDERED: HEParin 1000 UNIT/ML (10ML VIAL) FOR BOLUS ONE (10:47)
[2022-01-16] MEDS ORDERED: NS IV 1000 ML 1,000 ML ONE (11:01)
[2022-01-16] MEDS ORDERED: lisINopril 5 MG (PRINIVIL) TABLET PO ONE (11:15)
[2022-01-16] MEDS ORDERED: PATIENT MAY USE OWN MEDS, ALL PO SCH (11:15)
[2022-01-16] MEDS: NS IV 1000 ML 1,000 ML IV SCH ×2 (11:57→20:45)
--- NOTE | 2022-01-16 12:02 | Cardiac Cath Report ---
CARDIAC CATHETERIZATION DATE OF PROCEDURE: 01/16/2022 INDICATION: Non-ST elevation myocardial infarction and cardiomyopathy. HISTORY: The patient is a 61 year old female with a known history of coronary artery disease and cardiomyopathy. In 2009 she suffered a non-ST elevation myocardial infarction and underwent stent placement to the left anterior descen ding coronary artery. She then had a staged coronary stent placement to the left circumflex coronary artery about 1 month later. At that time she had severe left ventricular systolic dysfunction with an estimated ejection fraction of 25%. Unfortunately, following those procedures, she was lost to follow-up. She has not seen any physicians in over 5 years. She presented to the hospital early this morning with rapid onset of shortness of breath at rest. She was found to have elevated troponin levels which were climbing overnight. Her symptoms improved overnight but with the troponin climbing, she is now referred for further evaluation with a cardiac catheterization. PROCEDURES PERFORMED: 1. Left heart catheterization with hemodynamic measurements. 2. Diagnostic cachil dehe coronary angiography. 3. Right subclavian arteriography. PROCEDURE DESCRIPTION: After informed consent and in the fasting state, left heart catheterization was performed through the right femoral artery utilizing a 6 [place] system by percutaneous approach. Standard 5 Fatou catheters and a 5 [place] AR Mod catheter were utilized for the diagnostic portion of the procedure. I did also gain access to the right radial artery by percutaneous approach and inserted a 6 [place] sheath. However, when attempting to pass a 5 [place] JR4 catheter from the right radial artery, we encountered some resistance in the right subclavian artery. I then withdrew the standard J-wire and performed a right subclavian angiogram through the JR4 catheter. All catheters were exchanged over a guidewire. Following the procedure, a vascular band was applied to the radial artery access site and the sheath was removed with good hemostasis. Following the procedure, a right femoral angiogram revealed the vessel to have mild diffuse disease in the right common femoral artery and the sheath entered above the bifurcation. However, the right superficial femoral artery was occluded. A Mynx closure device was deployed. RESULTS: HEMODYNAMICS: The aortic pressure was 115/63 mmHg. The left ventricular pressure was 114/10 mmHg with a left ventricular end-diastolic pressure 25 mmHg. There was no significant pressure gradient upon pullback across aortic valve. CORONARY ANGIOGRAPHY: The coronary arteries were heavily calcified. Left main coronary artery: There was a hazy 70% stenosis in the distal left main coronary artery that performed a bifurcation lesion with the left anterior descending and left circumflex coronary arteries with a Dunne classification of 1, 1, 1. There was GRANT-3 flow beyond the lesion. Left anterior descending coronary artery: There was a 70% stenosis in the ostium which was part of the bifurcation lesion in the left main coronary artery. There was a stent in the midportion of the vessel which was patent but there was an 80% stenosis distal to the stent and the distal vessel contained moderate diffuse disease but no focal severe disease. There was GRANT-3 flow to the apex. Left circumflex coronary artery: The left circumflex coronary artery appeared to be codominant. There was a 70% stenosis in the ostium which was a continuation of the bifurcation lesion in the left main coronary artery. There was a moderate sized first obtuse marginal branch that appeared to contain moderate diffuse disease but no significant focal severe stenosis. There was a stent in the midportion of the left circumflex coronary artery proper that was patent but the continuation of the left circumflex coronary artery was totally occluded at the distal margin of this stent. There was a small second obtuse marginal branch which was jailed by the stent in the left circumflex coronary artery and had an 80% stenosis in its ostium with GRANT-1 flow. Right coronary artery: This had high and anterior takeoff. The right coronary artery appeared to be codominant. The vessel was diffusely diseased from the proximal down to the mid segment of the vessel with up to 90% stenoses with GRANT-1 flow to the distal vessel. There were [id number] collaterals seen filling the distal right coronary artery. The distal segment of the right coronary artery did appear large enough to be grafted. RIGHT SUBCLAVIAN ARTERIOGRAPHY: As above, due to some difficulty passing the 5 [place] JR4 catheter into the aortic root from the right radial approach, the guidewire was withdrawn. The JR4 catheter was positioned in the right subclavian artery and an angiogram was performed. This demonstrated approximately 80% stenosis in the left circumflex coronary artery, 70% stenosis in the ostium of the right internal mammary artery and 90% stenosis in the origin of the right carotid artery. IMPRESSION: 1. Markedly elevated left ventricular end-diastolic pressure. 2. Severe cachil dehe three-vessel coronary artery disease as outlined above that did involve a bifurcation lesion of the distal left main coronary artery. 3. The patient is known to have moderate left ventricular systolic dysfunction with an estimated ejection fraction of 35-40% by echocardiogram performed prior to this procedure. There was no significant valvular heart disease identified on this echocardiogram. 4. The patient has significant disease of the right subclavian artery and branches as noted above. 5. The patient appears to have occlusion of the right superficial femoral artery as outlined above. 6. The patient will need a cardiothoracic surgical consultation for consideration of coronary artery bypass surgery. I will reach out to [facility] in this regard. Certain portions of this document may have been dictated utilizing voice recognition technology. Inherent to this technology, typographical and grammatical errors may exist. As much as I am diligent to identify and correct these mistakes, some errors may remain in the document. JACQUELYN OSORIO JR, MD Jan 16, 2022 12:02
[2022-01-16] MEDS ORDERED: HEParin 1000 UNIT/ML (10ML VIAL) FOR BOLUS IV PRN (15:00)
[2022-01-16] MEDS: HEParin 1000 UNIT/ML (10ML VIAL) FOR BOLUS IV PRN ×2 (15:02→21:58)
[2022-01-16] MEDS: HEParin DRIP 25000 UNIT/500ML 500 ML IV SCH (15:07)
[2022-01-16] MEDS ORDERED: ENOXAPARIN 60 MG/0.6 ML (LOVENOX) SYR SC SCH (18:00)
--- NOTE | 2022-01-16 20:29 | History & Physical-Hospitalist ---
History of Present Illness HPI/Chief Complaint Gretta Landry is a 61 year old female with PMH HTN, T2DM, CAD, tobacco abuse, who presented with shortness of breath. She was moving firewood last night when she suddenly became short of breath. She denies cough. She denies fever. She denies chest, shoulder, neck, and arm pain. She denies nausea and vomiting. She denies diaphoresis. She has a history of CAD and multiple stents placed. She has not taken any medications for over ten years. She smokes a pack and a half of cigarettes per day. Source: patient Exam Limitations: no limitations Date Seen 01/16/22 Time Seen by a Provider: 10:15 Attending Physician Dalia Santoro MD [facility] Referring Physician Date of Admission Jan 16, 2022 at 04:00 Home Medications & Allergies Home Medications Reviewed patient Home Medication Reconciliation performed by pharmacy medication reconciliations splicing technician and/or nursing. Patients Allergies have been reviewed. Allergies Allergies Coded Allergies No Known Drug Allergies (Wajsszlljt83/22/10) Past Ygmftsb-Drpyjz-Zxodmi Hx Patient Social History Tobacco Use?: Yes Tobacco type used: Cigarettes Smoking Status: Current Everyday Smoker Use of E-Cig and/or Vaping dev: No Substance use?: No Alcohol Use?: No Pt feels they are or have been: No Immunizations Up To Date Tetanus Booster (TDap): Unknown Seasonal Allergies Seasonal Allergies: No Current Status status: No status: No Advance Directives: No Communicates: Verbally Primary Language: Estonian Preferred Spoken Language: Estonian Is interpretation needed?: No Implanted or Applied Medical D: Stents Past Medical History Surgeries: Adenoidectomy, Cardiac, Coronary Stent, Tonsillectomy Cardiomyopathy, Coronary Artery Disease, Heart Attack, High Cholesterol, Hypertension 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 MAYES-ANGIOPLASTY + STENT TO LAD; EF 25-30% -09/01/2010--CARDIAC CATH BY DR. MAYES--STENTS X 2 TO LAD; Review of Systems Constitutional: no symptoms reported EENTM: no symptoms reported Respiratory: short of breath Cardiovascular: no symptoms reported Gastrointestinal: no symptoms reported Genitourinary: no symptoms reported Musculoskeletal: no symptoms reported Skin: no symptoms reported Psychiatric/Neurological: No Symptoms Reported Physical Exam Physical Exam Vital Signs Vital Signs - First Documented 01/16/22 01/16/22 02:42 02:52 Temp 37.8 Pulse 113 Resp 28 B/P (MAP) 131/78 (95) Pulse Ox 93 O2 Delivery Nasal Cannula O2 Flow Rate 3.00 FiO2 100 Capillary Refill : Less Than 3 Seconds Height, Weight, BMI Height: '" Weight: 146lbs. oz. 66.147683uv; 20.98 BMI Method:Stated General Appearance: No Apparent Distress, WD/WN HEENT: PERRL/EOMI, Pharynx Normal Neck: Normal Inspection, Supple Respiratory: Lungs Clear, No Respiratory Distress Cardiovascular: Regular Rate, Rhythm, No Murmur Gastrointestinal: Normal Bowel Sounds, Soft Extremity: Normal Inspection, No Pedal Edema Neurologic/Psychiatric: Alert, Oriented x3, Normal Mood/Affect Skin: Normal Color, Warm/Dry Results Results/Procedures Labs Laboratory Tests 01/16/22 02:50 Patient resulted labs reviewed. Imaging: Reviewed Imaging Report Assessment/Plan Admission Diagnosis NSTEMI Admission Status: Inpatient Order (span 2 midnights) Reason for Inpatient Admission: UTI Assessment and Plan NSTEMI CAD Ischemic cardiomyopathy HFrEF HTN HLD Troponin trended up significantly Echo with EF 35-40% Cardiology consulted Performed left heart cath Multi-vessel CAD identified Transfer request placed to [facility] for CABG evaluation Severe sepsis due to UTI Lactic acidosis Urine culture pending IV fluids Rocephin T2DM Sliding scale insulin Tobacco abuse Nicotine patch DVT prophylaxis: Lovenox Diagnosis/Problems Diagnosis/Problems (1) NSTEMI (non-ST elevation myocardial infarction) Status: Acute (2) CAD (coronary artery disease) Status: Acute (3) Ischemic cardiomyopathy Status: Acute (4) HFrEF (heart failure with reduced ejection fraction) Status: Acute (5) HTN (hypertension) Status: Chronic (6) HLD (hyperlipidemia) Status: Chronic (7) Tobacco abuse (8) T2DM (type 2 diabetes mellitus) Status: Acute Qualifiers: Diabetes mellitus rat exterminator insulin use: without custodial use (9) Severe sepsis Status: Acute (10) UTI (urinary tract infection) Status: Acute DALIA SANTORO MD Jan 16, 2022 20:29
[2022-01-16] MEDS: ROSUVASTATIN 20 MG (CRESTOR) TABLET PO SCH (20:45)
[2022-01-17] MEDS: inSUlin ASPART (NovoLOG) 1 UNIT/0.01 ML (CHARGE PER UNIT) SC SCH ×4 (01:03→17:19)
[2022-01-17] MEDS: NS IV 1000 ML 1,000 ML IV SCH ×3 (03:55→13:33)
[2022-01-17] MEDS: MAGNESIUM 1 GM/100 ML IVPB 100 ML IV SCH (03:55)
[2022-01-17] MEDS: POTASSIUM CL 10MEQ/50ML IVPB 50 ML IV SCH (03:55)
[2022-01-17] MEDS: NOREPINEPHRINE 8 MG/250 ML 250 ML IV SCH (03:55)
[2022-01-17] MEDS: KCL 20 MEQ TAB (K-DUR) PO SCH (03:55)
[2022-01-17] MEDS: VASOPRESSIN INJECTION 20 UNIT in NS (IVPB) 100 ML IV SCH ×2 (03:55→13:33)
[2022-01-17 04:43] LABS: BASOPHILS % (AUTO) 0 % (0-10); EOSINOPHILS % (AUTO) 0 % (0-10); HEMATOCRIT 34 % (35-52); LYMPHOCYTES # (AUTO) 0.8 10^3/uL (1.0-4.0); LYMPHOCYTES % (AUTO) 11 % (12-44); MEAN CORPUSCULAR HEMOGLOBIN 29 pg (25-34); MEAN CORPUSCULAR HGB CONC 32 g/dL (32-36); MEAN CORPUSCULAR VOLUME 91 fL (80-99); MEAN PLATELET VOLUME 10.7 fL (9.0-12.2); MONOCYTES # (AUTO) 0.5 10^3/uL (0.0-1.0); MONOCYTES % (AUTO) 7 % (0-12); NEUTROPHILS # (AUTO) 6.3 10^3/uL (1.8-7.8); NEUTROPHILS % (AUTO) 82 % (42-75); PLATELET COUNT 219 10^3/uL (130-400); WHITE BLOOD COUNT 7.8 10^3/uL (4.3-11.0)
[2022-01-17 05:00] LABS: ALBUMIN 2.7 GM/DL (3.2-4.5)
[2022-01-17 05:01] LABS: POTASSIUM 3.7 MMOL/L (3.6-5.0)
[2022-01-17 05:02] LABS: CALCIUM 8.8 MG/DL (8.5-10.1)
[2022-01-17 05:05] LABS: BILIRUBIN,TOTAL 0.5 MG/DL (0.1-1.0)
[2022-01-17 05:06] LABS: PHOSPHORUS 2.1 MG/DL (2.3-4.7)
[2022-01-17 05:07] LABS: CREATININE SERUM 0.82 MG/DL (0.60-1.30)
[2022-01-17 05:10] LABS: MAGNESIUM 1.8 MG/DL (1.6-2.4)
[2022-01-17] MEDS: HEParin 1000 UNIT/ML (10ML VIAL) FOR BOLUS IV PRN (05:38)
[2022-01-17] MEDS ORDERED: cefTRIAXone 1 GM PRE-MIX 50 ML IV SCH (06:00)
[2022-01-17] MEDS: PANTOPRAZOLE 40 MG (PROTONIX) VIAL IV SCH (08:17)
[2022-01-17] MEDS: ASPIRIN E.C. 81 MG (ECOTRIN) TAB PO SCH (08:17)
[2022-01-17] MEDS ORDERED: NICOTINE 14 MG (NICODERM) PATCH TD SCH (09:00)
[2022-01-17] MEDS ORDERED: lisINopril 5 MG (PRINIVIL) TABLET PO SCH (09:00)
--- NOTE | 2022-01-17 09:02 | Cardiology Progress Note ---
Progress Note-Cardiology Events since last exam Date Seen by Provider: Jan 17, 2022 Time Seen by Provider: 08:57 Events since last exam I am following her due to non-ST elevation myocardial infarction and moderate cardiomyopathy. She denies any further dyspnea. She denies chest pain. She denies palpitations, syncope, or ankle edema. She plans to quit smoking when she goes home. She also knows that she needs to be treated for diabetes. Certain portions of this document may have been dictated utilizing voice recognition technology. Inherent to this technology, typographical and grammatical errors may exist. As much as I am diligent to identify and correct these mistakes, some errors may remain in the document. Vitals Last set of Vitals Signs Vital Signs 01/16/22 01/17/22 01/17/22 01/17/22 02:52 07:00 07:36 07:42 Temp 37.2 Pulse 91 Resp 19 B/P (MAP) 101/72 Pulse Ox 96 O2 Delivery Nasal Cannula O2 Flow Rate 2.00 FiO2 100 Labs Labs Laboratory Tests 01/17/22 04:22 Exam Vital Signs Vital Signs Date Time Temp Pulse Resp B/P (MAP) Pulse Ox O2 Delivery O2 Flow Rate FiO2 01/17/22 07:42 Nasal Cannula 2.00 01/17/22 07:36 37.2 01/17/22 07:00 91 01/17/22 07:00 19 101/72 96 01/16/22 02:52 100 Physical Exam General: Alert. No acute distress. She appears older than her stated age. Eye: No xanthelasma. HENT: Normocephalic. Neck: Jugular venous pressure does not appear elevated. Respiratory: Lungs are clear to auscultation but with diffusely decreased breath sounds. Respirations are non-labored. Breath sounds are equal. Symmetrical chest wall expansion. Cardiovascular: Normal rate. Regular rhythm. No murmur. No gallop. There is a pericardial friction rub. No edema. Gastrointestinal: Soft. Normal bowel sounds. Skin: Warm. Dry. Neurologic: Alert and oriented to person, place, time. Cranial nerves 3-11 grossly intact. Psychiatric: Cooperative. Appropriate mood & affect. Labs Laboratory Tests Test 01/16/22 11:54 01/16/22 12:41 01/16/22 17:36 01/16/22 20:56 Range/Units Glucometer 196 H 133 H 70-110 MG/DL Activated Partial Thromboplast Time 39 H 47 H 24-35 SEC Test 01/17/22 01:02 01/17/22 04:22 Range/Units Glucometer 132 H 70-110 MG/DL White Blood Count 7.8 4.3-11.0 10^3/uL Red Blood Count 3.78 L 3.80-5.11 10^6/uL Hemoglobin 11.0 L 11.5-16.0 g/dL Hematocrit 34 L 35-52 % Mean Corpuscular Volume 91 80-99 fL Mean Corpuscular Hemoglobin 29 25-34 pg Mean Corpuscular Hemoglobin Concent 32 32-36 g/dL Red Cell Distribution Width 14.6 H 10.0-14.5 % Platelet Count 219 130-400 10^3/uL Mean Platelet Volume 10.7 9.0-12.2 fL Immature Granulocyte % (Auto) 0 % Neutrophils (%) (Auto) 82 H 42-75 % Lymphocytes (%) (Auto) 11 L 12-44 % Monocytes (%) (Auto) 7 0-12 % Eosinophils (%) (Auto) 0 0-10 % Basophils (%) (Auto) 0 0-10 % Neutrophils # (Auto) 6.3 1.8-7.8 10^3/uL Lymphocytes # (Auto) 0.8 L 1.0-4.0 10^3/uL Monocytes # (Auto) 0.5 0.0-1.0 10^3/uL Eosinophils # (Auto) 0.0 0.0-0.3 10^3/uL Basophils # (Auto) 0.0 0.0-0.1 10^3/uL Immature Granulocyte # (Auto) 0.0 0.0-0.1 10^3/uL Activated Partial Thromboplast Time 48 H 24-35 SEC Sodium Level 139 135-145 MMOL/L Potassium Level 3.7 3.6-5.0 MMOL/L Chloride Level 109 H 98-107 MMOL/L Carbon Dioxide Level 17 L 21-32 MMOL/L Anion Gap 13 5-14 MMOL/L Blood Urea Nitrogen 14 7-18 MG/DL Creatinine 0.82 0.60-1.30 MG/DL Estimat Glomerular Filtration Rate 82 BUN/Creatinine Ratio 17 Glucose Level 135 H 70-105 MG/DL Calcium Level 8.8 8.5-10.1 MG/DL Corrected Calcium 9.8 8.5-10.1 MG/DL Phosphorus Level 2.1 L 2.3-4.7 MG/DL Magnesium Level 1.8 1.6-2.4 MG/DL Total Bilirubin 0.5 0.1-1.0 MG/DL Aspartate Amino Transf (AST/SGOT) 52 H 5-34 U/L Alanine Aminotransferase (ALT/SGPT) 17 0-55 U/L Alkaline Phosphatase 81 40-136 U/L Total Protein 6.0 L 6.4-8.2 GM/DL Albumin 2.7 L 3.2-4.5 GM/DL Diagnosis/Problems Diagnosis/Problems (1) Non-ST elevation myocardial infarction (NSTEMI), initial care episode Assessment & Plan: She had a non-ST elevation myocardial infarction and her cardiac catheterization revealed severe three-vessel coronary artery disease involving the distal left main coronary artery. She also has moderate left vent ricular systolic dysfunction. She is diabetic. As such, the treatment of choice is coronary artery bypass surgery. She has been accepted for transfer to [facility] and we are just waiting for a bed to open up. She is on aspirin, carvedilol, lisinopril, and rosuvastatin. She has a pericardial friction rub today that may be a sign of Inés syndrome. Fortunately, she is not having chest pain. I do not see any reason for a follow-up echocardiogram at this point in time. However, if she becomes hemodynamically unstable, she will need a follow-up echocardiogram. (2) Cardiomyopathy Assessment & Plan: In 2009 she had severe left ventricular systolic dysfunction with an estimated ejection fraction of 25%. This was at the time of her initial diagnosis of coronary artery disease. She was then lost to follow-up. Her ej ection fraction during this admission was 35%. This was in the setting of acute myocardial infarction so some of this abnormal left ventricular systolic function could be due to regional myocardial stunning and hopefully will improve with coronary revascularization. I have started treatment with carvedilol and lisinopril. Her blood pressures are somewhat soft so I will keep her at the same doses of these medications for the time being. (3) Acute on chronic HFrEF (heart failure with reduced ejection fraction) Assessment & Plan: Her chest x-ray at the time of admission did show pulmonary congestion. As above, I have started her on carvedilol and lisinopril. She is asymptomatic but is mainly staying in bed. Follow-up chest x-ray from this morn ing is pending. If she still has pulmonary edema, then I will start her on intravenous furosemide. (4) Atherosclerosis of right carotid artery Assessment & Plan: During her cardiac catheterization there was some difficulty passing the Kraman from the right radial artery into the aortic root. A right subclavian arteriogram showed that she has significant stenosis of the origin of the right carotid artery, the right subclavian artery, and the origin of the right internal mammary artery. She also had a CT angiogram of the chest which was suggestive of significant left subclavian arterial stenosis. Furthermore, a femoral angiogram which was performed to determine whether or not the patient could have a femoral arterial closure device showed complete occlusion of the right superficial femoral artery. These may need to be addressed around the ti me of her coronary revascularization. (5) Peripheral arterial disease Assessment & Plan: As above. She may need some additional peripheral vascular studies prior to coronary artery bypass surgery. (6) Coronary artery disease with unstable angina pectoris Assessment & Plan: We will proceed as above. (7) Cigarette smoker Assessment & Plan: She needs to quit smoking. She was counseled in this regard. She states that she plans to quit smoking after this hospitalization. JACQUELYN OSORIO JR, MD Jan 17, 2022 09:02
--- NOTE | 2022-01-17 09:16 | Diagnostic Imaging Report ---
PA and lateral chest at 9:03. Indication: Pulmonary congestion. The heart is stable in size when compared to the prior exam of 01/16/2022. As on the prior study the central pulmonary vascularity is engorged. This would be consistent with congestive failure. However the central pulmonary vasculature is not quite as striking as on the prior exam. There is still no evidence for pneumonia or for significant pleural effusion. The mediastinum is not widened. The osseous structures are intact. Impression: There continues to be pulmonary congestion. However the central pulmonary vasculature is not quite as prominent as on the prior exam. A followup study would be recommended for continued evaluation. Dictated by: Dictated on workstation # [id number]
--- NOTE | 2022-01-17 09:44 | Tele-ICU Progress Note ---
Subjective Date Seen by a Provider: Jan 17, 2022 Time Seen by a Provider: 08:00 Subjective/Events-last exam This virtual visit was conducted using real time audio/video. Thank you for asking us to see this patient for respiratory insufficiency due to NSTEMI, Pulm edema, Isch CMP. Also hyperglycemic, urosepsis. Recent events: None. PE: VSS. Resting comfortably, undistressed. O2 sat 97% on 4 LPM NC. HEENT: No obvious masses, adenopathy or JVD. Chest: clear to auscultation. CV: RRR S1 S2 No murmur or added sounds. Abd: Non-tender. Bowel sounds Y. : Unremarkable. Lang Y. 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 No obvious focal findings. Extremities: No edema. Capillary refill < 3 seconds. Skin: unremarkable. Results: Elevated BG 135, Trop 17.564. Decreased Hb 11.0. B.43/38/68 on 2 LPM. CXR: B infilts., effusions.. Available chart/ vitals / labs / images reviewed. Video assessment done using teleICU camera, rest of exam as per RN. A/P: Respiratory insufficiency: Continue present management with NC Monitor for increasing oxygenation needs and/or need for intubation. Critical Care: critically ill patient. Cont. abx, PPI, hep., ASA, statin, Coreg, lisinopril, SSI. possible transfer to [facility] when bed avail. Discussed with CARLTON Aguilar. Asked RN to reach out to eICU if any questions or concerns later. Time spent with patient/coordination of care with other health professionals (mins): 20 Sepsis Event Evaluation Height, Weight, BMI Height: '" Weight: 146lbs. oz. 66.203633qi; 20.98 BMI Method:Stated Focused Exam Lactate Level 01/16/22 02:50: Lactic Acid Level 2.28*H 01/16/22 06:14: Lactic Acid Level 1.83 Exam Exam Patient acknowledged, consented, and participated in this virtual visit which was conducted using real time audio/video Vital Signs Date Time Temp Pulse Resp B/P (MAP) Pulse Ox O2 Delivery O2 Flow Rate FiO2 01/17/22 09:00 91 16 96/71 98 Nasal Cannula 2.00 01/17/22 08:00 90 17 107/78 95 Nasal Cannula 2.00 01/17/22 07:42 Nasal Cannula 2.00 01/17/22 07:36 37.2 01/17/22 07:00 91 01/17/22 07:00 91 19 101/72 96 Nasal Cannula 2.00 01/17/22 06:00 93 28 102/74 96 Nasal Cannula 2.00 01/17/22 05:00 93 25 98/72 96 Nasal Cannula 2.00 01/17/22 04:00 Nasal Cannula 2.00 01/17/22 04:00 93 19 99/67 95 Nasal Cannula 2.00 01/17/22 03:00 96 33 105/71 94 Nasal Cannula 2.00 01/17/22 02:00 99 26 109/81 94 Nasal Cannula 2.00 01/17/22 01:07 37.0 01/17/22 01:00 98 39 106/75 93 Nasal Cannula 2.00 01/17/22 01:00 100 01/17/22 00:00 95 36 117/85 96 Nasal Cannula 2.00 01/16/22 23:59 Nasal Cannula 2.00 01/16/22 23:00 95 26 115/55 97 Nasal Cannula 2.00 01/16/22 22:00 92 19 109/57 97 Nasal Cannula 2.00 01/16/22 21:00 96 28 105/81 96 Nasal Cannula 2.00 01/16/22 20:16 37.3 98 16 99/78 97 Nasal Cannula 2.00 01/16/22 20:00 Nasal Cannula 2.00 01/16/22 20:00 96 38 99/78 99 Nasal Cannula 4.00 01/16/22 19:00 94 01/16/22 19:00 95 31 95/71 95 Nasal Cannula 4.00 01/16/22 18:00 93 40 98/72 95 Nasal Cannula 4.00 01/16/22 17:00 94 40 96/70 94 Nasal Cannula 4.00 01/16/22 16:00 91 32 85/70 96 Nasal Cannula 4.00 01/16/22 16:00 Nasal Cannula 3.00 01/16/22 16:00 36.5 01/16/22 15:00 87 88/68 100 Nasal Cannula 4.00 01/16/22 14:00 85 87/69 99 Nasal Cannula 4.00 01/16/22 13:30 86 16 86/65 96 Nasal Cannula 4.00 01/16/22 13:15 84 14 98/72 93 Nasal Cannula 4.00 01/16/22 13:00 85 13 94/59 95 Nasal Cannula 4.00 01/16/22 12:52 84 01/16/22 12:45 84 29 93/74 91 Nasal Cannula 4.00 01/16/22 12:30 82 29 93/72 86 Nasal Cannula 4.00 01/16/22 12:15 82 30 84/64 87 Nasal Cannula 4.00 01/16/22 12:00 86 27 97/75 89 Nasal Cannula 3.00 01/16/22 12:00 Nasal Cannula 3.00 01/16/22 11:56 36.1 01/16/22 11:45 98/76 01/16/22 10:00 84 25 116/76 99 Nasal Cannula 3.00 I & O 01/17/22 07:00 Intake Total 2800 ml Output Total 2075 ml Balance 725 ml Height & Weight Height: '" Weight: 146lbs. oz. 66.757811st; 20.98 BMI Method:Stated General Appearance: No Apparent Distress, WD/WN HEENT: PERRL/EOMI, Pharynx Normal Neck: Normal Inspection, Supple Respiratory: Lungs Clear, No Respiratory Distress Cardiovascular: Regular Rate, Rhythm, No Murmur Capillary Refill: Less Than 3 Seconds Extremity: Normal Inspection, No Pedal Edema Neurologic/Psychiatric: Alert, Oriented x3, Normal Mood/Affect Skin: Normal Color, Warm/Dry Results Lab Laboratory Tests 01/16/22 02:50 01/17/22 04:22 Assessment/Plan Assessment/Plan See free text. Critical Care: Critically Ill Patient LEILANI ORELLANA MD Jan 17, 2022 09:44
[2022-01-17] MEDS ORDERED: FUROSEMIDE 40 MG/4 ML INJ (LASIX) IVP ONE (09:45)
[2022-01-17] MEDS: HEParin DRIP 25000 UNIT/500ML 500 ML IV SCH (16:37)
[2022-01-17] MEDS: ROSUVASTATIN 20 MG (CRESTOR) TABLET PO SCH (21:12)
--- NOTE | 2022-01-17 21:17 | Progress Note - Hospitalist ---
Subjective HPI/CC On Admission Date Seen by Provider: Jan 17, 2022 Time Seen by Provider: 09:15 Gretta Landry is a 61 year old female with PMH HTN, T2DM, CAD, tobacco abuse, who presented with shortness of breath. She was moving firewood last night when she suddenly became short of breath. She denies cough. She denies fever. She denies chest, shoulder, neck, and arm pain. She denies nausea and vomiting. She denies diaphoresis. She has a history of CAD and multiple stents placed. She has not taken any medications for over ten years. She smokes a pack and a half of cigarettes per day. Subjective/Events-last exam She denies pain. She is not short of breath. She ate breakfast this morning. Focused Exam Lactate Level 01/16/22 02:50: Lactic Acid Level 2.28*H 01/16/22 06:14: Lactic Acid Level 1.83 Objective Exam Vital Signs Vital Signs Date Time Temp Pulse Resp B/P (MAP) Pulse Ox O2 Delivery O2 Flow Rate FiO2 01/17/22 19:00 86 01/17/22 18:00 38 87/67 98 Nasal Cannula 2.00 01/17/22 16:00 36.5 01/16/22 02:52 100 Capillary Refill : Less Than 3 Seconds General Appearance: No Apparent Distress, Chronically ill Respiratory: Lungs Clear, No Respiratory Distress Cardiovascular: Regular Rate, Rhythm, No Murmur Gastrointestinal: Normal Bowel Sounds, Soft Extremity: Normal Inspection, Non Tender Neurologic/Psychiatric: Alert, Other (irritable, agitated) Skin: Normal Color, Warm/Dry Results/Procedures Lab Laboratory Tests 01/17/22 04:22 Patient resulted labs reviewed. Imaging: Reviewed Imaging Report Assessment/Plan Assessment and Plan Assess & Plan/Chief Complaint NSTEMI CAD Ischemic cardiomyopathy HFrEF HTN HLD Troponin trended up significantly Echo with EF 35-40% Cardiology consulted Performed left heart cath Multi-vessel CAD identified Awaiting transfer to [facility] for CABG evaluation Severe sepsis due to UTI Lactic acidosis Urine culture pending IV fluids Rocephin T2DM Sliding scale insulin Tobacco abuse Nicotine patch DVT prophylaxis: Lovenox Diagnosis/Problems Diagnosis/Problems (1) NSTEMI (non-ST elevation myocardial infarction) Status: Acute (2) CAD (coronary artery disease) Status: Acute (3) Ischemic cardiomyopathy Status: Acute (4) HFrEF (heart failure with reduced ejection fraction) Status: Acute (5) HTN (hypertension) Status: Chronic (6) HLD (hyperlipidemia) Status: Chronic (7) Tobacco abuse (8) T2DM (type 2 diabetes mellitus) Status: Acute Qualifiers: Diabetes mellitus terminal superintendent insulin use: without terminal superintendent use (9) Severe sepsis Status: Acute (10) UTI (urinary tract infection) Status: Acute JAMES SANTORO MD Jan 17, 2022 21:17
[2022-01-17 22:15] VITALS: BP 106/87
[2022-01-18] MEDS ORDERED: PATCH REMOVAL TP SCH (08:59)
== END 2022-01-17 22:15 | disposition short-term general hospital (02) | DRG 871 ==
LOC: ER 02:39 → ICU 04:00
PROVIDERS: ADMIT Internal Medicine; ATTEND Internal Medicine
PROC: 4A023N7 Measurement of Cardiac Sampling and Pressure, Left Heart, Percutaneous Approach (ICD-10-PCS; principal; 2022-01-16)
PROC: B2111ZZ Fluoroscopy of Multiple Coronary Arteries using Low Osmolar Contrast (ICD-10-PCS; 2022-01-16)
PROC: B3111ZZ Fluoroscopy of Right Brachiocephalic-Subclavian Artery using Low Osmolar Contrast (ICD-10-PCS; 2022-01-16)
DX: A41.9 Sepsis, unspecified organism (principal); I21.4 Non-ST elevation (NSTEMI) myocardial infarction; I50.21 Acute systolic (congestive) heart failure; N39.0 Urinary tract infection, site not specified; E87.2 Acidosis; I25.720 Atherosclerosis of autologous artery coronary artery bypass graft(s) with unstable angina pectoris; I25.110 Atherosclerotic heart disease of native coronary artery with unstable angina pectoris; R65.20 Severe sepsis without septic shock; Z20.822 Contact with and (suspected) exposure to COVID-19; I11.0 Hypertensive heart disease with heart failure; I25.5 Ischemic cardiomyopathy; I65.21 Occlusion and stenosis of right carotid artery; F17.210 Nicotine dependence, cigarettes, uncomplicated; E78.00 Pure hypercholesterolemia, unspecified; E11.65 Type 2 diabetes mellitus with hyperglycemia; Z79.4 Long term (current) use of insulin; Z79.84 Long term (current) use of oral hypoglycemic drugs; I70.8 Atherosclerosis of other arteries; I70.201 Unspecified atherosclerosis of native arteries of extremities, right leg; I25.2 Old myocardial infarction; Z95.5 Presence of coronary angioplasty implant and graft; Z79.82 Long term (current) use of aspirin; Z79.899 Other long term (current) drug therapy; E03.9 Hypothyroidism, unspecified; Z91.19 Patient's noncompliance with other medical treatment and regimen
CPT/HCPCS: 36246; 36415; 71045; 71046; 71275; 80053; 80061; 80306; 80320; 80329; 81000; 82010; 82150; 82550; 82553; 82805; 82947; 83036; 83605; 83615; 83690; 83735; 83874; 83880; 84100; 84145; 84439; 84443; 84484; 85007; 85025; 85027; 85379; 85610; 85652; 85730; 86141; 87040; 87077; 87081; 87088; 87186; 87636; 93005; 93041; 93306; 93458; 99291

== ENCOUNTER → 2022-03-15 | Outpatient (CLI) | payer OTHER ==
[~2022-03-15] MED LIST changes: +ASPI-789 PO; +ATOR40TA70 PO; +CLOP75TA28 PO; +DAPA10TA PO; +GLIP5TAB13 PO; +METF-397 PO; +MTP25TSR PO
[2022-03-15 07:58] VITALS: BP 107/80
== END ==
LOC: SDC 07:51
PROVIDERS: ATTEND Surgery
DX: R19.00 Intra-abdominal and pelvic swelling, mass and lump, unspecified site (principal)

== ENCOUNTER 2022-03-19 23:10 | Inpatient (IN) | payer OTHER ==
[~2022-03-19] VITALS: Ht 170 cm; Wt 63.7 kg
[~2022-03-19 23:10] MED LIST changes: -ASPI-789 PO; -ATOR40TA70 PO; -CLOP75TA28 PO; -DAPA10TA PO; -GLIP5TAB13 PO; -METF-397 PO; -MTP25TSR PO
[2022-03-19] MEDS ORDERED: LACTATED RINGERS 1,000 ML IV ONE (23:30)
[2022-03-19] MEDS ORDERED: IBUPROFEN 800 MG (MOTRIN) TAB PO ONE (23:30)
[2022-03-19] MEDS ORDERED: ACETAMINOPHEN 500 MG TAB (TYLENOL) PO ONE (23:30)
--- NOTE | 2022-03-19 23:36 | ED General ---
General Stated Complaint: FEVER,DIARRHEA Source of Information: Patient (PT IS A VERY POOR HISTORIAN ), EMS, Old Records (ALL PMH IS FROM OLD CHART) History of Present Illness Date Seen by Provider: March 19, 2022 Time Seen by Provider: 23:18 Initial Comments PT ARRIVES VIA EMS FROM HOME--LIVES WITH HER SISTER AND [id number] WAS REPORTED TO EMS THAT PT HAS BEEN SICK FOR THE PAST FEW DAYS WITH FEVER AND DIARRHEA HAS NOT BEEN OUT OF BED FOR THE LAST 2 DAYS, PER EMS. TEMP IS 103.4 FOR EMS--PT UNAWARE OF FEVER BP 80'S/50'S, HR IN 140'S FOR EMS PT HAS COPD AND CONTINUES TO SMOKE. DOES NOT HAVE HOME O2 EMS REPORT THAT PT BECAME VERY SHORT OF BREATH VERY EASILY WITH MINIMAL EFFORT AT THE RESIDENCE. PT C/O PAIN TO LEFT RIBS FOR THE LAST WEEK. HURTS TO BREATHE OR MOVE STATES SHE DID FALL OVER A WEEK AGO, BUT HAS NOT SEEN ANYONE FOR THAT PROBLEM HAS A FREQUENT COUGH--PT STATES IS NORMAL FOR HER DENIES NAUSEA DENIES ABDOMINAL PAIN DOES NOT KNOW WHEN SHE LAST VOIDED DOES NOT KNOW WHEN SHE LAST ATE OR DRANK, BUT STATES SHE IS VERY THIRSTY NOW. CANNOT STATE WHY SHE HAS NOT BEEN EATING OR DRINKING. PT ALSO HAS HISTORY OF HTN, WELL CAD WITH STENTS IN 2009 PT ALSO HAS BEEN DX WITH DIABETES AND BEEN ON INSULIN IN THE PAST, BUT HAD QUIT TAKING IT 11 YEARS AGO PT WAS SEEN HERE 01/16/22--PT HAD NOT SEEN A DR IN AT LEAST 12 YEARS AT THAT TIME PT WAS ADMITTED AT THAT TIME WITH MULTIPLE PROBLEMS, INCLUDING SEVERE SEPSIS, UTI, CHF, PNEUMONIA, NSTEMI. 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 PT CANNOT STATE WHAT WAS DONE WHEN SHE WAS AT OR WHAT THEY DIAGNOSED HER WITH. ( ON EXAM THERE ARE NO RECENT SURGICAL SCARS IDENTIFIED ) SHE STATES SHE HAS MEDICATION AT HOME, BUT DOES NOT KNOW WHAT MEDICATION SHE IS ON OR WHAT SHE TAKES IT FOR STATES SHE DOES NOT KNOW IF SHE TOOK HER MEDICATIONS TODAY OR NOT, OR WHEN SHE MIGHT HAVE LAST TAKEN ANY MEDICATION HAS NOT SOUGHT CARE UNTIL TONIGHT FOR THESE PROBLEMS STATES SHE "DOESN'T KNOW" WHY SHE DID NOT SEEK CARE PRIOR TO TONIGHT. PCP: [facility] Allergies and Home Medications Allergies Coded Allergies: No Known Drug Allergies (Unverified , 08/21/10) Patient Home Medication List Home Medication List Reviewed: Yes Aspirin/Acetaminophen/Caffeine (Excedrin Migraine Caplet) 250 Mg-250 Mg-65 Mg Tablet, 2 EACH PO Q6-8HR PRN for Headache, (Reported) Entered as Reported by: ESTELA HUBBARD on 03/22/22951 Last Action: Reviewed Atorvastatin Calcium (Atorvastatin Calcium) 40 Mg Tablet, 80 MG PO DAILY, (Reported) Entered as Reported by: ESTELA HUBBARD on 03/22/22951 Last Action: Continued Clopidogrel Bisulfate (Clopidogrel) 75 Mg Tablet, 75 MG PO DAILY, (Reported) Entered as Reported by: ESTELA HUBBARD on 03/22/22951 Last Action: Continued Dapagliflozin Propanediol (Farxiga) 10 Mg Tablet, 10 MG PO DAILY, (Reported) Entered as Reported by: ESTELA HUBBARD on 03/22/22951 Last Action: Reviewed Glipizide (Glipizide) 5 Mg Tablet, 5 MG PO DAILY, (Reported) Entered as Reported by: ESTELA HUBBARD on 03/22/22951 Last Action: Reviewed Metformin HCl (Metformin HCl) 500 Mg Tablet, 1,000 MG PO BID WITH MEALS, (Reported) Entered as Reported by: ESTELA HUBBARD on 03/22/22951 Last Action: Reviewed Metoprolol Succinate (Metoprolol Succinate) 25 Mg Tab.er.24h, 25 MG PO DAILY, (Reported) Entered as Reported by: ESTELA HUBBARD on 03/22/22951 Last Action: Continued Discontinued Medications Aspirin (Aspirin Ec 325 Mg) 325 Mg Tabec, 325 MG PO DAILY, (Reported) Discontinued Reason: No Longer Taking Entered as Reported by: THUY LIZAMA on 08/24/101016 Last Action: Discontinued Atenolol (Tenormin 25 Mg) 25 Mg Tablet, 25 MG PO DAILY, (Reported) Discontinued Reason: No Longer Taking Entered as Reported by: THUY LIZAMA on 08/24/101016 Last Action: Discontinued Clopidogrel Bisulfate (Plavix 75 Mg) 75 Mg Tablet, 75 MG PO DAILY, (Reported) Discontinued Reason: No Longer Taking Entered as Reported by: THUY LIZAMA on 08/24/101016 Last Action: Discontinued Furosemide (Furosemide) 40 Mg Tablet, 60 MG PO DAILY, (Reported) Discontinued Reason: No Longer Taking Entered as Reported by: THUY LIZAMA on 08/24/101016 Last Action: Discontinued Insulin Determir (Levemir Pen) 100 U/Ml Insuln.pen, 15 UNITS SQ HS, (Reported) Discontinued Reason: No Longer Taking Entered as Reported by: THUY LIZAMA on 08/24/10 1028 Last Action: Discontinued Levothyroxine Sodium (Levothyroxine 50 Mcg Tab) 50 Mcg Tablet, 1 EACH PO DAILY, (Reported) Discontinued Reason: No Longer Taking Entered as Reported by: COLT CRISTINA on 08/21/10912 Last Action: Discontinued Levothyroxine Sodium (Levothyroxine 50 Mcg Tab) 50 Mcg Tablet, 1 EACH PO DAILY Discontinued Reason: No Longer Taking Prescribed by: WINTER JENNINGS on 07/27/13 1702 Last Action: Discontinued Lisinopril (Zestril) 5 Mg Tablet, 5 MG PO DAILY, (Reported) Discontinued Reason: No Longer Taking Entered as Reported by: THUY LIZAMA on 08/24/101016 Last Action: Discontinued Magnesium Oxide (Magnesium Oxide) 400 Mg Tablet, 400 MG PO DAILY, (Reported) Discontinued Reason: No Longer Taking Entered as Reported by: THUY LIZAMA on 08/24/101016 Last Action: Discontinued Metformin Hcl (Metformin 500 Mg) 500 Mg Tablet, 2 EACH PO BID WITH MEALS, (Reported) Discontinued Reason: No Longer Taking Entered as Reported by: COLT CRISTINA on 08/21/10912 Last Action: Discontinued Phenazopyridine Hcl (Pyridium) 200 Mg Tablet, 1 EACH PO TID PRN Discontinued Reason: No Longer Taking Prescribed by: WINTER JENNINGS on 07/27/13 1657 Last Action: Discontinued Potassium Chloride (Potassium Chloride 20 Meq Tab) 20 Meq Tab.prt.sr, 20 MEQ PO DAILY, (Reported) Discontinued Reason: No Longer Taking Entered as Reported by: THUY LIZAMA on 08/24/101016 Last Action: Discontinued Pravastatin Sodium (Pravachol) 20 Mg Tablet, 20 MG PO HS, (Reported) Discontinued Reason: No Longer Taking Entered as Reported by: THUY LIZAMA on 08/24/101016 Last Action: Discontinued Trimethoprim/Sulfamethoxazole (Bactrim Ds) 1 Ea Tablet, 1 EA PO BID Discontinued Reason: No Longer Taking Prescribed by: FAY BENNETT on 09/03/13 0623 Last Action: Discontinued Review of Systems Review of Systems Constitutional: see HPI, fever, malaise, weakness EENTM: no symptoms reported Respiratory: see HPI, dyspnea on exertion Cardiovascular: No chest pain Gastrointestinal: see HPI; No abdominal pain; diarrhea, loss of appetite, nausea; No vomiting Genitourinary: no symptoms reported Musculoskeletal: no symptoms reported Skin: no symptoms reported Psychiatric/Neurological: No Symptoms Reported Past Oxdpxyg-Ilxmtu-Iusrex Hx Patient Social History Tobacco Use?: Yes Tobacco type used: Cigarettes Smoking Status: Current Everyday Smoker Substance use?: No Alcohol Use?: No Immunizations Up To Date Tetanus Booster (TDap): Unknown Seasonal Allergies Seasonal Allergies: No Past Medical History Surgery/Hospitalization HX: DIABETIC Surgeries: Yes Adenoidectomy, Cardiac, Coronary Stent, Tonsillectomy Respiratory: No Cardiac: Yes (STEMI 2009 WITH STENTS X3 TO LAD & L CIRCUMFLEX;CHF;EF25-30%;PAD;CAROTID DZ) Cardiomyopathy, Coronary Artery Disease, Heart Attack, High Cholesterol, Hypertension, Peripheral Vascular Neurological: No Reproductive Disorders: No 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 - PER A DICTATED NOTE FROM DR. FRAGOSO ON 02/23/22: FINDINGS OF A PELVIC MASS WAS DISCOVERED IN HER EVALUATION AT AND ANY INTERVENTION FOR HER VASCULAR ISSUES WAS POSTPONED UNTIL THE PELVIC MASS HAD BEEN EVALUATED AND PT WAS REFERRED TO DR. FRAGOSO, GENERAL SURGEON, LOCALLY. COLONOSCOPY DONE AT DID NOT FIND ANY COLON ABNORMALITIES. SOCIAL HISTORY: -SMOKES 1 1/2 PPD -ETOH--DENIES USE -DRUGS DENIES USE PAST SURGICAL HISTORY: -TONSILLECTOMY / ADENOIDECTOMY -08/21/10--CARDIAC CATH WHEN PT HAD DC -DONE BY DR. MAYES-ANGIOPLASTY + STENT TO LAD; EF 25-30% -09/01/2010--CARDIAC CATH BY DR. MAYES--STENTS X 2 TO LEFT CIRCUMFLEX; CARDIAC CATH 01/16/[address] OSORIO: IMPRESSION: 1. Markedly elevated left ventricular end-diastolic pressure. 2. Severe [place] three-vessel coronary artery disease as outlined above that did involve a bifurcation lesion of the distal left main coronary artery. 3. The patient is known to have moderate left ventricular systolic dysfunction with an estimated ejection fraction of 35-40% by echocardiogram performed prior to this procedure. There was no significant valvular heart disease identified on this echocardiogram. 4. The patient has significant disease of the right subclavian artery and branches as noted above. 5. The patient appears to have occlusion of the right superficial femoral artery as outlined above. 6. The patient will need a cardiothoracic surgical consultation for consideration of coronary artery bypass surgery. I will reach out to [facility] in this regard Physical Exam Vital Signs Vital Signs - First Documented Capillary Refill : Height, Weight, BMI Height: '" Weight: 146lbs. oz. 66.306141ph; 20.98 BMI Method:Stated General Appearance: Chronically ill, Cachetic, Other (PT IS MILDLY DYSPNEIC AT REST, AND LETHARGIC; PT IS INCONTINENT OF LARGE SOFT FORMED STOOL, NORMAL BROWN COLOR, WELL A MASSIVE AMOUNT OF DRIED SOFT STOOL -SPECIMEN SENT TO LAB., PT STATES SHE DID NOT KNOW SHE HAD BEEN INCONTINENT OF STOOL. ) HEENT: PERRL/EOMI, Other (ORAL MUCOSA EXTREMELY DRY) Neck: Normal Inspection, Non Tender Respiratory: Decreased Breath Sounds (IN BASES), Other (DYSPNEIC AT REST AND GETS VERY DYSPNEIC WITH MINIMAL MOVEMENT,; LEFT CHEST TENDER BUT NO EVIDENCE OF TRAUMA, NO CREPITANCE OR SUB Q AIR. NO RASH ) Cardiovascular: No Edema, No JVD, No Murmur, Normal Peripheral Pulses, Tachycardia Gastrointestinal: Normal Bowel Sounds, No Organomegaly, Non Tender, Soft Back: No CVA Tenderness Extremity: Normal Capillary Refill (BUT PULSES ARE NOT PALPABLE. FEET ARE PINK AND WARM. ), No Pedal Edema Neurologic/Psychiatric: Alert, Oriented x3 (BUT VERY POOR MEMORY. ), No Motor/Sensory Deficits, ssn/ssbn assistant navigator II-XII Norm as Tested, Other (LETHARGIC) Skin: Normal Color, Warm/Dry, Other (POOR TURGOR; NO ULCERATIONS OR SKIN BREAKDOWN NOTED BUT LEROY AREA IS DIFFUSELY INFLAMED DUE TO LAYING IN HER FECES AND URINE AT HOME FOR THE LAST 2 DAYS) Focused Exam Sepsis Stage: Severe Sepsis Possible Source: Pulmonary Lactate Level Time of Focused Exam: 01:00 Respiratory: Accessory Muscle Use, Decreased Breath Sounds Cardiovascular: No Edema, Tachycardia Capillary Refill: Less Than 3 Seconds Skin: normal color, warm/dry Lactic Acid Level Laboratory Tests Test 03/19/22 23:20 03/20/22 01:00 Lactic Acid Level 3.88 MMOL/L (0.50-2.00) *H 3.00 MMOL/L (0.50-2.00) *H Within 3hrs of presentation: Admin fluids, Admin ABX, Blood cultures prior to ABX's, Focus exam, Lactate level Progress/Results/Core Measures Suspected Sepsis SIRS Temperature: Pulse: Respiratory Rate: Blood Pressure / Mean: Laboratory Tests 03/19/22 23:20: INR Comment 1.2 Results/Orders Lab Results Laboratory Tests Test 03/19/22 23:20 03/19/22 23:43 03/20/22 00:20 03/20/22 01:00 Range/Units White Blood Count 10.6 4.3-11.0 10^3/uL Red Blood Count 4.29 3.80-5.11 10^6/uL Hemoglobin 13.2 11.5-16.0 g/dL Hematocrit 39 35-52 % Mean Corpuscular Volume 92 80-99 fL Mean Corpuscular Hemoglobin 31 25-34 pg Mean Corpuscular Hemoglobin Concent 34 32-36 g/dL Red Cell Distribution Width 16.1 H 10.0-14.5 % Platelet Count 190 130-400 10^3/uL Mean Platelet Volume 11.7 9.0-12.2 fL Immature Granulocyte % (Auto) 1 % Neutrophils (%) (Auto) 91 H 42-75 % Lymphocytes (%) (Auto) 3 L 12-44 % Monocytes (%) (Auto) 4 0-12 % Eosinophils (%) (Auto) 1 0-10 % Basophils (%) (Auto) 1 0-10 % Neutrophils # (Auto) 9.7 H 1.8-7.8 10^3/uL Lymphocytes # (Auto) 0.4 L 1.0-4.0 10^3/uL Monocytes # (Auto) 0.4 0.0-1.0 10^3/uL Eosinophils # (Auto) 0.1 0.0-0.3 10^3/uL Basophils # (Auto) 0.1 0.0-0.1 10^3/uL Immature Granulocyte # (Auto) 0.1 0.0-0.1 10^3/uL Neutrophils % (Manual) 79 % Lymphocytes % (Manual) 1 % Monocytes % (Manual) 2 % Eosinophils % (Manual) 0 % Basophils % (Manual) 0 % Band Neutrophils 18 % Anisocytosis SLIGHT Erythrocyte Sedimentation Rate 90 H 0-30 MM/HR Prothrombin Time 15.2 H 12.2-14.7 SEC INR Comment 1.2 0.8-1.4 Activated Partial Thromboplast Time 47 H 24-35 SEC Sodium Level 140 135-145 MMOL/L Potassium Level 3.6 3.6-5.0 MMOL/L Chloride Level 106 98-107 MMOL/L Carbon Dioxide Level 11 L 21-32 MMOL/L Anion Gap 23 H 5-14 MMOL/L Blood Urea Nitrogen 64 H 7-18 MG/DL Creatinine 2.28 H 0.60-1.30 MG/DL Estimat Glomerular Filtration Rate 24 BUN/Creatinine Ratio 28 Glucose Level 98 70-105 MG/DL Lactic Acid Level 3.88 *H 3.00 *H 0.50-2.00 MMOL/L Calcium Level 9.4 8.5-10.1 MG/DL Corrected Calcium 10.1 8.5-10.1 MG/DL Magnesium Level 1.8 1.6-2.4 MG/DL Total Bilirubin 1.0 0.1-1.0 MG/DL Aspartate Amino Transf (AST/SGOT) 43 H 5-34 U/L Alanine Aminotransferase (ALT/SGPT) 26 0-55 U/L Alkaline Phosphatase 89 40-136 U/L C-Reactive Protein High Sensitivity 42.27 H 0.00-0.50 MG/DL Total Protein 7.5 6.4-8.2 GM/DL Albumin 3.1 L 3.2-4.5 GM/DL Amylase Level 32 25-125 U/L Lipase 25 8-78 U/L Procalcitonin 18.86 H <0.10 NG/ML Serum Alcohol < 10 <10 MG/DL Influenza Type A (RT-PCR) Not Detected Not Detecte Influenza Type B (RT-PCR) Not Detected Not Detecte SARS-CoV-2 RNA (RT-PCR) Not Detected Not Detecte Glucometer 100 70-110 MG/DL Urine Color YELLOW Urine Clarity CLEAR Urine pH 5.5 5-9 Urine Specific [place] >=1.030 1.016-1.022 Urine Protein 3+ H NEGATIVE Urine Glucose (UA) NEGATIVE NEGATIVE Urine Ketones 1+ H NEGATIVE Urine Nitrite NEGATIVE NEGATIVE Urine Bilirubin 2+ H NEGATIVE Urine Urobilinogen 1.0 < = 1.0 MG/DL Urine Leukocyte Esterase NEGATIVE NEGATIVE Urine RBC (Auto) 2+ H NEGATIVE Urine RBC 0-2 /HPF Urine WBC RARE /HPF Urine Squamous Epithelial Cells 2-5 /HPF Urine Crystals NONE /LPF Urine Amorphous Sediment MOD LEONARDO URATES H /LPF Urine Bacteria NEGATIVE /HPF Urine Casts PRESENT /LPF Urine Coarse Granular Casts 10-25 H /LPF Urine Mucus NEGATIVE /LPF Urine Culture Indicated CULTURE PENDING Urine Opiates Screen NEGATIVE NEGATIVE Urine Oxycodone Screen NEGATIVE NEGATIVE Urine Methadone Screen NEGATIVE NEGATIVE Urine Propoxyphene Screen NEGATIVE NEGATIVE Urine Barbiturates Screen NEGATIVE NEGATIVE Ur Tricyclic Antidepressants Screen NEGATIVE NEGATIVE Urine Phencyclidine Screen NEGATIVE NEGATIVE Urine Amphetamines Screen NEGATIVE NEGATIVE Urine Methamphetamines Screen NEGATIVE NEGATIVE Urine Benzodiazepines Screen NEGATIVE NEGATIVE Urine Cocaine Screen NEGATIVE NEGATIVE Urine Cannabinoids Screen NEGATIVE NEGATIVE Total Creatine Kinase 229 H 29-168 U/L Creatine Kinase MB 1.1 <6.6 NG/ML Troponin I 0.086 H <0.028 NG/ML B-Type Natriuretic Peptide 360.9 H <100.0 PG/ML TSH Scurry Testing 2.70 0.35-4.94 UIU/ML Test 03/20/22 02:35 Range/Units Lab Scanned Report Referred Lab Report [id number] Micro Results Microbiology 03/20/22 Urine Culture - Final, Complete NO GROWTH 03/20/22 Fecal Leukocyte Stain - Final, Complete 03/20/22 C. difficile GDH Antigen & Toxins - Final, Complete 03/20/22 Stool Culture - Final, Complete My Orders Orders - ANAI AHUJA DO Ed Iv/Invasive Line Start (03/19/22 23:16) Ekg Tracing (03/19/22 23:16) Catheter(Urinary) Insert & Ass 03,15 (03/19/22 23:16) O2 (03/19/22 23:16) Monitor-Rhythm Ecg Trace Only (03/19/22 23:16) Amylase (03/19/22:16) Cbc With Automated Diff (03/19/22 23:16) Comprehensive Metabolic Panel (03/19/22 23:16) Hs C Reactive Protein (03/19/22 23:16) Lactic Acid Analyzer (03/19/22 23:16) Lipase (03/19/22:16) Magnesium (03/19/22 23:16) Procalcitonin (Pct) (03/19/22 23:16) Ua Culture If Indicated (03/19/22:16) Stool Culture (03/19/22:16) Fecal Wbc (03/19/22:16) Erythrocyte Sedimentation Rate (03/19/22:16) Ed Iv/Invasive Line Start (03/19/22 23:16) Fecal Wbc (03/19/22 23:16) C Difficile Ag + Toxin A/B. (03/19/22 23:16) Covid 19 Inhouse Test (03/19/22 23:16) Urine Culture (03/19/22 23:16) Ed Iv/Invasive Line Start (03/19/22 23:16) Vital Signs Adult Sepsis Patie Q15M (03/19/22 23:16) Remove Rings In Anticipation O (03/19/22 23:16) Isolation Central Supply Req (03/19/22 23:16) Influenza A And B By Pcr (03/19/22 23:16) Isolation Central Supply Req (03/19/22 23:16) Ed Iv/Invasive Line Start (03/19/22 23:20) Lactated Ringers (Lr 1000 Ml Iv Solution (03/19/22 23:30) Acetaminophen Tablet (Tylenol Tablet) (03/19/22 23:30) Ibuprofen Tablet (Motrin Tablet) (03/19/22 23:30) Accucheck Stat ONCE (03/19/22 23:47) Chest 1 View, Ap/Pa Only (03/20/22 00:01) Alcohol (03/20/22 00:05) Drug Screen Stat (Urine) (03/20/22 00:05) Protime With Inr (03/20/22 00:05) Partial Thromboplastin Time (03/20/22 00:05) Manual Differential (03/19/22 23:20) Ed Iv/Invasive Line Start (03/20/22 00:25) Lactated Ringers (Lr 1000 Ml Iv Solution (03/20/22 00:30) Bnp Hannah (03/20/22 00:44) Creatine Kinase (03/20/22 00:44) Creatine Kinase Mb (03/20/22 00:44) Thyroid Analyzer (03/20/22 00:44) Troponin I Hannah (03/20/22 00:44) Ct Chest/Abdomen/Pelvis Wo (03/20/22 00:54) Cefepime Injection (Maxipime Injection) (03/20/22 01:15) Ekg Tracing (03/20/22 01:42) Ed Iv/Invasive Line Start (03/20/22 02:24) Lactated Ringers (Lr 1000 Ml Iv Solution (03/20/22 02:30) Medications Given in ED Vital Signs/I&O 03/20/22 03/20/22 00:28 00:28 Temp 38.6 38.6 Capillary Refill : Progress Note : Progress Note SEPSIS PROTOCOL INITIATED PLACED IN ISOLATION ROOM PPE WORN COVID AND FLU TESTING DONE GIVEN: -IV FLUIDS -TYLENOL AND MOTRIN NO DETERIORATION IN PT'S CONDITION DURING ER STAY BP UP, AND HEART RATE DOWN WITH FLUIDS, AND WITH TEMPERATURE COMING DOWN. PT WITH 4 LITERS OF FLUIDS GIVEN IN ER, WITH ONLY 100 ML URINE OUTPUT DURING ER STAY. BP 100-105 SYSTOLIC, HR 80, O2 SAT 98% ON 2L/NC AND NO DYSPNEA, AT TIME OF ADMIT. TEMP COMING DOWN AT TIME OF ADMIT. PT WAS INCONTINENT OF MODERATE AMOUNT OF LIQUID BROWN STOOL DURING ER STAY. NO FAMILY CALLED OR CAME TO ER TO CHECK ON PT DURING ER STAY. ECG Initial ECG Impression Date: March 19, 2022 Initial ECG Impression Time: 23:38 Initial ECG Rate: 129 Initial ECG Rhythm: S.Tach Initial ECG Impression: Nonspecific Changes Initial ECG Comparisson: Unchanged EKG : EKG Time: 01:46 Rate: 100 Rhythm: Normal Sinus ECG Impression: Nonspecific Changes Diagnostic Imaging Comments CXR--FINDINGS: Heart size and mediastinal contours are unchanged. There is no identified pneumothorax. There is blunting the left lateral costophrenic angle. There is nonspecific left basilar airspace consolidation and right basilar airspace consolidation. This has been interval change and worsening since the comparison exam. IMPRESSION: 1. Nonspecific bibasilar airspace consolidation which may relate to pneumonia, aspiration, or other alveolar consolidative process, effusions, and/or atelectasis. CT CHEST/ABDOMEN/PELVIS--PER [facility] VIA FAX AT 0233 MULTIFOCAL FOCAL AIRSPACE CONSOLIDATIONS IN LUNG MAHARAJ AND POSSIBLY PNEUMONIA MULTIPLE SMALL GALLSTONES DIVERTICULOSIS OF COLON, MILD THICKENING INVOLVING THE RECTUM, NO OBSTRUCTION. BLADDER WALL THICKENING ENLARGED UTERUS, LOBULATED MASS CALCIFICATION IN RIGHT ADNEXAL REGION -COULD REPRESENT EXOPHYTIC LEIOMYOMA WITH CALCIFICATION. SCLEROSIS OF THE SACRUM AND SMALL LYTIC LESIONS OF THE SACRAL ALA. NO ACUTE FINDINGS IN THE ABDOMEN OR PELVIS Reviewed: Reviewed by Me Departure Communication (Admissions) 0235--SPOKE WITH DR. MURRELL, HOSPITALIST FOR [facility]. ACCEPTS PT FOR ADMIT. ORDERS NOTED. 023--SPOKE WITH DR. AMANDA Nunez CARDIOLOGY CONSULT. ORDERS NOTED. Impression Primary Impression: Severe sepsis Additional Impressions: Acute renal failure Severe dehydration CAD (coronary artery disease) PAD (peripheral artery disease) Carotid artery disease T2DM (type 2 diabetes mellitus) Heavy cigarette smoker (20-39 per day) Pneumonia Adnexal mass Troponin level elevated Non-compliance Disposition: ADMITTED INPATIENT Condition: Improved Admissions Decision to Admit Reason: Admit from ER (General) Decision to Admit/Date: March 20, 2022 Time/Decision to Admit Time: 02:35 Departure-Patient Inst. Referrals: [facility] (PCP) Primary Care Physician BRENDAN VELAZCO APRN (Family) Primary Care Physician ANAI AHUJA DO March 19, 2022 23:36
[2022-03-20 00:10] LABS: BASOPHILS # (AUTO) 0.1 10^3/uL (0.0-0.1); BASOPHILS % (AUTO) 1 % (0-10); EOSINOPHILS # (AUTO) 0.1 10^3/uL (0.0-0.3); EOSINOPHILS % (AUTO) 1 % (0-10); HEMATOCRIT 39 % (35-52); HEMOGLOBIN 13.2 g/dL (11.5-16.0); LYMPHOCYTES # (AUTO) 0.4 10^3/uL (1.0-4.0); LYMPHOCYTES % (AUTO) 3 % (12-44); MEAN CORPUSCULAR HEMOGLOBIN 31 pg (25-34); MEAN CORPUSCULAR HGB CONC 34 g/dL (32-36); MEAN CORPUSCULAR VOLUME 92 fL (80-99); MEAN PLATELET VOLUME 11.7 fL (9.0-12.2); MONOCYTES # (AUTO) 0.4 10^3/uL (0.0-1.0); MONOCYTES % (AUTO) 4 % (0-12); NEUTROPHILS # (AUTO) 9.7 10^3/uL (1.8-7.8); NEUTROPHILS % (AUTO) 91 % (42-75); PLATELET COUNT 190 10^3/uL (130-400); WHITE BLOOD COUNT 10.6 10^3/uL (4.3-11.0)
[2022-03-20 00:22] LABS: INR 1.2 (0.8-1.4); PROTHROMBIN TIME PATIENT 15.2 SEC (12.2-14.7)
[2022-03-20 00:25] LABS: ALBUMIN 3.1 GM/DL (3.2-4.5)
[2022-03-20 00:26] LABS: POTASSIUM 3.6 MMOL/L (3.6-5.0)
[2022-03-20 00:27] LABS: CALCIUM 9.4 MG/DL (8.5-10.1)
[2022-03-20 00:28] LABS: TOTAL PROTEIN 7.5 GM/DL (6.4-8.2)
[2022-03-20] MEDS ORDERED: LACTATED RINGERS 1,000 ML IV ONE ×3 (00:30→04:03)
[2022-03-20 00:32] LABS: CREATININE SERUM 2.28 MG/DL (0.60-1.30)
[2022-03-20 00:33] LABS: CLARITY,URINE CLEAR; COLOR,URINE YELLOW; GLUCOSE, URINE (UA) NEGATIVE (NEGATIVE); KETONES,URINE 1+ (NEGATIVE); LEUKOCYTE ESTERASE ,URINE NEGATIVE (NEGATIVE); NITRITE,URINE NEGATIVE (NEGATIVE); PH,URINE 5.5 (5-9); PROTEIN,URINE 3+ (NEGATIVE)
[2022-03-20 00:35] LABS: MAGNESIUM 1.8 MG/DL (1.6-2.4)
[2022-03-20 00:49] LABS: AMORPHOUS SEDIMENT,UR MOD AMOR URATES /LPF; BACTERIA,URINE NEGATIVE /HPF; BILIRUBIN,URINE 2+ (NEGATIVE); RBC,URINE 0-2 /HPF; WBC,URINE RARE /HPF
[2022-03-20 00:52] LABS: ANISOCYTOSIS SLIGHT; BAND NEUTROPHILS 18 %; BASOPHILS % (MANUAL) 0 %; EOSINOPHILS % (MANUAL) 0 %; LYMPHOCYTES % (MANUAL) 1 %; MONOCYTES % (MANUAL) 2 %; NEUTROPHILS % (MANUAL) 79 %
[2022-03-20 00:55] LABS: AMPHETAMINE SCREEN, URINE NEGATIVE (NEGATIVE); BARBITURATE SCREEN URINE NEGATIVE (NEGATIVE); BENZODIAZEPINES SCREEN URINE NEGATIVE (NEGATIVE); CANNABINOID SCREEN, URINE NEGATIVE (NEGATIVE); COCAINE SCREEN URINE NEGATIVE (NEGATIVE); METHADONE STAT NEGATIVE (NEGATIVE); OPIATE SCREEN URINE NEGATIVE (NEGATIVE); OXYCODONE STAT NEGATIVE (NEGATIVE); PROPOXYPHENE STAT NEGATIVE (NEGATIVE); TRICYCLIC ANTIDEPRESSANTS SCRE NEGATIVE (NEGATIVE)
[2022-03-20] MEDS ORDERED: CEFEPIME INJECTION 1,000 MG in NS (IVPB) 50 ML IV ONE (01:15)
[2022-03-20 01:26] LABS: ERYTHROCYTE SEDIMENTATION RATE 90 MM/HR (0-30)
[2022-03-20 01:37] LABS: CREATINE KINASE MB 1.1 NG/ML (<6.6)
[2022-03-20 01:50] LABS: TSH (THYROID ANALYZER) 2.7 UIU/ML (0.35-4.94)
[2022-03-20] MEDS ORDERED: ENOXAPARIN 80 MG/0.8 ML (LOVENOX) SYR SC ONE (02:45)
--- NOTE | 2022-03-20 03:59 | Tele-ICU Progress Note ---
Subjective Date Seen by a Provider: March 20, 2022 Subjective/Events-last exam Per singe winder/Plan Assessment/Plan 61 yo F history of COPD, CAD admitted with diarrhea and fever. Sepsis protocol. Cefepime given IVF resuscitation Cultures ordered Lactate cleared Awake, alert on video assessment 99/62 94% on 2L RR 8-15 HR 84 Labs reviewed, imaging pending Levophed PRN if needed Continue cefepime, flagyl Follow-up cultures, imaging DVT prophylaxis Critical Care: Critically Ill Patient Advance Care discuss with: patient JAJA GALO MD March 20, 2022 03:59
[2022-03-20] MEDS ORDERED: LACTATED RINGERS 1,000 ML IV SCH (04:00)
[2022-03-20] MEDS ORDERED: EPINEPHrine 1 MG INJECTION 4 MG in NS (IVPB) 248 ML IV SCH (04:15)
[2022-03-20] MEDS: LACTATED RINGERS 1,000 ML IV SCH ×5 (04:20→22:59)
[2022-03-20] MEDS ORDERED: ONDANSETRON 4 MG/2 ML (SDV) Z0FRAN IV PRN (04:30)
[2022-03-20] MEDS ORDERED: ENOXAPARIN 80 MG/0.8 ML (LOVENOX) SYR SC SCH (04:30)
[2022-03-20] MEDS ORDERED: IBUPROFEN 800 MG (MOTRIN) TAB PO PRN (04:30)
[2022-03-20 05:17] LABS: BASOPHILS # (AUTO) 0.1 10^3/uL (0.0-0.1); BASOPHILS % (AUTO) 1 % (0-10); EOSINOPHILS % (AUTO) 0 % (0-10); HEMATOCRIT 33 % (35-52); HEMOGLOBIN 11.1 g/dL (11.5-16.0); LYMPHOCYTES # (AUTO) 0.3 10^3/uL (1.0-4.0); LYMPHOCYTES % (AUTO) 4 % (12-44); MEAN CORPUSCULAR HEMOGLOBIN 31 pg (25-34); MEAN CORPUSCULAR HGB CONC 34 g/dL (32-36); MEAN CORPUSCULAR VOLUME 91 fL (80-99); MEAN PLATELET VOLUME 11.6 fL (9.0-12.2); MONOCYTES # (AUTO) 0.4 10^3/uL (0.0-1.0); MONOCYTES % (AUTO) 5 % (0-12); NEUTROPHILS # (AUTO) 7.2 10^3/uL (1.8-7.8); NEUTROPHILS % (AUTO) 90 % (42-75); PLATELET COUNT 156 10^3/uL (130-400); WHITE BLOOD COUNT 8.1 10^3/uL (4.3-11.0)
[2022-03-20 05:47] LABS: ALBUMIN 2.5 GM/DL (3.2-4.5)
[2022-03-20 05:48] LABS: POTASSIUM 3.7 MMOL/L (3.6-5.0)
[2022-03-20 05:49] LABS: CALCIUM 8.6 MG/DL (8.5-10.1)
[2022-03-20 05:50] LABS: TOTAL PROTEIN 5.8 GM/DL (6.4-8.2)
[2022-03-20 05:52] LABS: BILIRUBIN,TOTAL 0.8 MG/DL (0.1-1.0)
[2022-03-20 05:53] LABS: PHOSPHORUS 4.6 MG/DL (2.3-4.7)
[2022-03-20 05:54] LABS: CREATININE SERUM 1.89 MG/DL (0.60-1.30)
[2022-03-20 05:57] LABS: MAGNESIUM 1.6 MG/DL (1.6-2.4)
[2022-03-20] MEDS: NOREPINEPHRINE 8 MG/250 ML 250 ML IV SCH ×2 (06:10→22:57)
[2022-03-20] MEDS: metroNIDAZOLE 500MG/100ML IVPB 100 ML IV SCH ×2 (06:10→16:02)
[2022-03-20] MEDS: inSUlin ASPART (NovoLOG) 1 UNIT/0.01 ML (CHARGE PER UNIT) SC SCH ×4 (06:11→21:51)
[2022-03-20] MEDS: VASOPRESSIN INJECTION 20 UNIT in NS (IVPB) 100 ML IV SCH ×2 (06:11→14:53)
--- NOTE | 2022-03-20 06:57 | Diagnostic Imaging Report ---
EXAMINATION: Chest radiograph, portable AP view. DATE: 03/20/2022 1:38 AM INDICATION: 61-year-old female, fever. COMPARISON: January 16, 2022. FINDINGS: Heart size and mediastinal contours are unchanged. There is no identified pneumothorax. There is blunting the left lateral costophrenic angle. There is nonspecific left basilar airspace consolidation and right basilar airspace consolidation. This has been interval change and worsening since the comparison exam. IMPRESSION: 1. Nonspecific bibasilar airspace consolidation which may relate to pneumonia, aspiration, or other alveolar consolidative process, effusions, and/or atelectasis. Dictated by: Dictated on workstation # [id number]
--- NOTE | 2022-03-20 07:41 | Diagnostic Imaging Report ---
PROCEDURE: CT chest, abdomen, and pelvis without contrast. TECHNIQUE: Multiple contiguous axial images were obtained through the chest, abdomen, and pelvis without the use of intravenous contrast. Auto Exposure Controls were utilized during the CT exam to meet ALARA standards for radiation dose reduction. Date: March 20, 2022. Indication: 61-year-old female, chest pain, fever, diarrhea. Dyspnea. Comparison: Chest radiograph March 20, 2022. CT chest January 16, 2022. Findings: There is a right middle lobe pulmonary nodule measuring 1.5 cm in size in axial image 77. This is new. There is an additional right middle lobe pulmonary nodule which is also new on axial image 78 which measures 9 mm in size. There is a 5 mm right middle lobe pulmonary nodule on axial image 83. There is nodular masslike consolidation in the right lower lobe on axial image 93 measuring approximately 6.3 x 7.3 cm in axial extent. This has fairly poorly defined margins. There is airspace consolidation in the left upper lobe in its inferior aspect which is fairly nodular and masslike measuring 4.7 x 2.8 cm in axial extent. There is also nodular masslike airspace consolidation in the left lower lobe with an axial extent of roughly 8.4 x 7.1 cm. This is increased in alveolar consolidation since the prior CT exam. There is also previously noted more ill-defined left upper lobe consolidation on the prior exam. There are also ill-defined opacities in the right lung on the prior CT chest. There is no identified pneumothorax. There is no sizable pleural effusion. There are coronary artery calcifications and additional areas of atherosclerotic disease. The heart is not grossly enlarged. There is no pericardial effusion. There is limited evaluation for mediastinal and hilar adenopathy given the lack of intravenous contrast. No identified abnormally enlarged axillary lymph node which meets CT size criteria for adenopathy. The liver is unremarkable in size and contour. There is cholelithiasis without evidence of acute cholecystitis. There is no intrahepatic or extrahepatic bile duct dilation. The main pancreatic duct is not abnormally dilated. Limited noncontrast assessment of the pancreatic parenchyma is unremarkable. The spleen is normal in size. The adrenal glands are unremarkable. There is severe atrophy of the left kidney. There is a stone in left renal pelvis on axial image 138 which measures 10 mm in size. There is no identified hydronephrosis. There is a Lang catheter in the urinary bladder which is otherwise not well evaluated. There is a partially calcified right adnexal mass measuring approximately 6.8 x 5.1 cm in size. The appendix is unremarkable. The intestinal tract is not distended. There is no free intraperitoneal air. There is no drainable fluid collection. There is abnormal attenuation in the presacral space. There are atherosclerotic calcifications. There is no identified abnormally enlarged lymph node in the abdomen or pelvis specifically meeting CT size criteria for adenopathy. There is scoliosis. There are multilevel degenerative changes of the spine. There is a chronic appearing deformity at the level of S1-S2 of the sacrum. There is no identified acute bony abnormality. Impression: 1. Multifocal nodular areas of consolidation in the right middle lobe, right lower lobe, left upper lobe, and left lower lobe as described above. There previously with less well-defined airspace consolidation in this distribution on prior CT chest on January 16, 2022. This may reflect multifocal pneumonia. Other alveolar consolidative processes including malignancy would be difficult to exclude. Recommend correlation clinically and at minimum follow-up. If there is little clinical concern for pneumonia, sampling is recommended. 2. Partially calcified large right adnexal mass of unclear exact origin. This does raise concern for neoplasm. An ovarian origin or mesenteric origin would be considered. Bowel origin is also a differential consideration. 3. Abnormal attenuation of the presacral space. This is nonspecific. 4. Additional findings as above. Dictated by: Dictated on workstation # [id number]
[2022-03-20] MEDS: PANTOPRAZOLE 40 MG (PROTONIX) VIAL IV SCH (08:39)
--- NOTE | 2022-03-20 09:58 | Tele-ICU Progress Note ---
Subjective Date Seen by a Provider: March 20, 2022 Time Seen by a Provider: 09:54 Subjective/Events-last exam Being treated for RLL PNA with Cefepime, has diarrhea and is on Flagyl Hx of COPD, CAD, Today feels a little better, more awake compared to yesterday Was hypothermic on warmer temp down 94, was 92 TSH ok Sepsis Event Evaluation Height, Weight, BMI Height: '" Weight: 146lbs. oz. 66.718250oq; 20.79 BMI Method:Stated Focused Exam Lactate Level 03/19/22 23:20: Lactic Acid Level 3.88*H 03/20/22 01:00: Lactic Acid Level 3.00*H 03/20/22 02:57: Lactic Acid Level 1.30 Time of Focused Exam: 01:00 Exam Exam Patient acknowledged, consented, and participated in this virtual visit which was conducted using real time audio/video Vital Signs Date Time Temp Pulse Resp B/P (MAP) Pulse Ox O2 Delivery O2 Flow Rate FiO2 03/20/22 09:00 84 21 104/69 96 Nasal Cannula 2.00 03/20/22 08:30 97 Nasal Cannula 2.00 03/20/22 08:00 77 22 102/66 96 Nasal Cannula 2.00 03/20/22 07:30 35.5 03/20/22 07:00 80 20 101/65 98 Nasal Cannula 2.00 03/20/22 07:00 80 03/20/22 06:00 79 22 101/65 97 Nasal Cannula 2.00 03/20/22 05:30 81 20 102/63 97 Nasal Cannula 2.00 03/20/22 05:00 82 22 106/66 98 Nasal Cannula 2.00 03/20/22 04:37 35.6 82 25 97/60 97 Nasal Cannula 2.00 03/20/22 04:30 95 Nasal Cannula 2.00 03/20/22 04:15 83 25 95/58 94 Nasal Cannula 2.00 03/20/22 04:12 84 03/20/22 04:00 87 12 82/54 92 Nasal Cannula 2.00 03/20/22 03:45 86 21 99/62 96 Nasal Cannula 2.00 03/20/22 00:28 38.6 03/20/22 00:28 38.6 03/19/22 23:15 38.7 134 26 101/76 (84) 94 Room Air I & O 03/20/22 07:00 Intake Total 1325 ml Output Total 100 ml Balance 1225 ml Height & Weight Height: '" Weight: 146lbs. oz. 66.536275tr; 20.79 BMI Method:Stated General Appearance: No Apparent Distress, Chronically ill, Cachetic, Other (PT IS MILDLY DYSPNEIC AT REST, AND LETHARGIC; PT IS INCONTINENT OF LARGE SOFT FORMED STOOL, NORMAL BROWN COLOR, WELL A MASSIVE AMOUNT OF DRIED SOFT STOOL -SPECIMEN SENT TO LAB., PT STATES SHE DID NOT KNOW SHE HAD BEEN INCONTINENT OF STOOL. ) HEENT: PERRL/EOMI, Other (ORAL MUCOSA EXTREMELY DRY) Neck: Normal Inspection, Non Tender Respiratory: Accessory Muscle Use, Decreased Breath Sounds, Rhonci Cardiovascular: Regular Rate, Rhythm, No Edema, Tachycardia Capillary Refill: Less Than 3 Seconds Gastrointestinal: normal bowel sounds, non tender, soft, other (stool cultures pending) Extremity: Normal Capillary Refill, No Pedal Edema Neurologic/Psychiatric: Alert, Oriented x3 (BUT VERY POOR MEMORY. 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
[2022-03-20] MEDS: ACETAMINOPHEN 500 MG TAB (TYLENOL) PO PRN ×2 (10:45→23:39)
--- NOTE | 2022-03-20 10:55 | Consultation-Cardiology ---
HPI-Cardiology Cardiology Consultation Date of Consultation 03/20/22 Date of Admission Time Seen by Provider: 09:54 Indication: Coronary artery disease HPI 61-year-old lady with extensive history of coronary artery disease and peripheral arterial disease. Admitted for increasing shortness of breath and fever, was noted to have sepsis. On my evaluation she was laying down in bed, complaining of fatigue and loss of energy. Having shortness of breath. Denied any active chest pain. Had cardiac catheterization done by Dr. Preston and she was referred to [facility]. She was identified to have coronary artery disease and peripheral arterial disease. Procedure was postponed due to questionable stroke. She has another scheduled appointment with the cardiothoracic surgeon at [place]. On this admission she was noted to have mild elevation in troponin. Home Medications & Allergies Allergies: Coded Allergies: No Known Drug Allergies (Unverified , 08/21/10) Home Medication List Reviewed: Yes [id number] Hx Patient Social History Marital Status: single Employed/Student: unemployed, retired Smoking Status: Current Everyday Smoker Have you traveled recently?: No Alcohol Use?: No Immunizations Up To Date Tetanus Booster (TDap): Unknown Past Medical History Discussed below Family Medical History Significant Family History: No Pertinent Family Hx Family Medical Hx Noncontributory Review of Systems-General Review of Systems Constitutional: see HPI, fever, malaise, weakness EENTM: no symptoms reported Respiratory: see HPI, cough, dyspnea on exertion; No hemoptysis; orthopnea; No phlegm, No short of breath, No stridor, No wheezing, No other Cardiovascular: see HPI; No chest pain, No edema; Hx of Intervention; No palpitations, No syncope, No vascular heart diseas, No other Gastrointestinal: no symptoms reported, see HPI; No abdominal pain; diarrhea, loss of appetite, nausea; No vomiting Genitourinary: no symptoms reported, see HPI Musculoskeletal: no symptoms reported, see HPI, back pain, joint pain Skin: no symptoms reported, see HPI Psychiatric/Neurological: No Symptoms Reported, See HPI Reviewed Test Results Reviewed Test Results Lab Laboratory Tests Test 03/19/22 23:20 03/19/22 23:43 03/20/22 00:20 03/20/22 01:00 Range/Units White Blood Count 10.6 4.3-11.0 10^3/uL Red Blood Count 4.29 3.80-5.11 10^6/uL Hemoglobin 13.2 11.5-16.0 g/dL Hematocrit 39 35-52 % Mean Corpuscular Volume 92 80-99 fL Mean Corpuscular Hemoglobin 31 25-34 pg Mean Corpuscular Hemoglobin Concent 34 32-36 g/dL Red Cell Distribution Width 16.1 H 10.0-14.5 % Platelet Count 190 130-400 10^3/uL Mean Platelet Volume 11.7 9.0-12.2 fL Immature Granulocyte % (Auto) 1 % Neutrophils (%) (Auto) 91 H 42-75 % Lymphocytes (%) (Auto) 3 L 12-44 % Monocytes (%) (Auto) 4 0-12 % Eosinophils (%) (Auto) 1 0-10 % Basophils (%) (Auto) 1 0-10 % Neutrophils # (Auto) 9.7 H 1.8-7.8 10^3/uL Lymphocytes # (Auto) 0.4 L 1.0-4.0 10^3/uL Monocytes # (Auto) 0.4 0.0-1.0 10^3/uL Eosinophils # (Auto) 0.1 0.0-0.3 10^3/uL Basophils # (Auto) 0.1 0.0-0.1 10^3/uL Immature Granulocyte # (Auto) 0.1 0.0-0.1 10^3/uL Neutrophils % (Manual) 79 % Lymphocytes % (Manual) 1 % Monocytes % (Manual) 2 % Eosinophils % (Manual) 0 % Basophils % (Manual) 0 % Band Neutrophils 18 % Anisocytosis SLIGHT Erythrocyte Sedimentation Rate 90 H 0-30 MM/HR Prothrombin Time 15.2 H 12.2-14.7 SEC INR Comment 1.2 0.8-1.4 Activated Partial Thromboplast Time 47 H 24-35 SEC Sodium Level 140 135-145 MMOL/L Potassium Level 3.6 3.6-5.0 MMOL/L Chloride Level 106 98-107 MMOL/L Carbon Dioxide Level 11 L 21-32 MMOL/L Anion Gap 23 H 5-14 MMOL/L Blood Urea Nitrogen 64 H 7-18 MG/DL Creatinine 2.28 H 0.60-1.30 MG/DL Estimat Glomerular Filtration Rate 24 BUN/Creatinine Ratio 28 Glucose Level 98 70-105 MG/DL Lactic Acid Level 3.88 *H 3.00 *H 0.50-2.00 MMOL/L Calcium Level 9.4 8.5-10.1 MG/DL Corrected Calcium 10.1 8.5-10.1 MG/DL Magnesium Level 1.8 1.6-2.4 MG/DL Total Bilirubin 1.0 0.1-1.0 MG/DL Aspartate Amino Transf (AST/SGOT) 43 H 5-34 U/L Alanine Aminotransferase (ALT/SGPT) 26 0-55 U/L Alkaline Phosphatase 89 40-136 U/L C-Reactive Protein High Sensitivity 42.27 H 0.00-0.50 MG/DL Total Protein 7.5 6.4-8.2 GM/DL Albumin 3.1 L 3.2-4.5 GM/DL Amylase Level 32 25-125 U/L Lipase 25 8-78 U/L Procalcitonin 18.86 H <0.10 NG/ML Serum Alcohol < 10 <10 MG/DL Influenza Type A (RT-PCR) Not Detected Not Detecte Influenza Type B (RT-PCR) Not Detected Not Detecte SARS-CoV-2 RNA (RT-PCR) Not Detected Not Detecte Glucometer 100 70-110 MG/DL Urine Color YELLOW Urine Clarity CLEAR Urine pH 5.5 5-9 Urine Specific [place] >=1.030 1.016-1.022 Urine Protein 3+ H NEGATIVE Urine Glucose (UA) NEGATIVE NEGATIVE Urine Ketones 1+ H NEGATIVE Urine Nitrite NEGATIVE NEGATIVE Urine Bilirubin 2+ H NEGATIVE Urine Urobilinogen 1.0 < = 1.0 MG/DL Urine Leukocyte Esterase NEGATIVE NEGATIVE Urine RBC (Auto) 2+ H NEGATIVE Urine RBC 0-2 /HPF Urine WBC RARE /HPF Urine Squamous Epithelial Cells 2-5 /HPF Urine Crystals NONE /LPF Urine Amorphous Sediment MOD LEONARDO URATES H /LPF Urine Bacteria NEGATIVE /HPF Urine Casts PRESENT /LPF Urine Coarse Granular Casts 10-25 H /LPF Urine Mucus NEGATIVE /LPF Urine Culture Indicated CULTURE PENDING Urine Opiates Screen NEGATIVE NEGATIVE Urine Oxycodone Screen NEGATIVE NEGATIVE Urine Methadone Screen NEGATIVE NEGATIVE Urine Propoxyphene Screen NEGATIVE NEGATIVE Urine Barbiturates Screen NEGATIVE NEGATIVE Ur Tricyclic Antidepressants Screen NEGATIVE NEGATIVE Urine Phencyclidine Screen NEGATIVE NEGATIVE Urine Amphetamines Screen NEGATIVE NEGATIVE Urine Methamphetamines Screen NEGATIVE NEGATIVE Urine Benzodiazepines Screen NEGATIVE NEGATIVE Urine Cocaine Screen NEGATIVE NEGATIVE Urine Cannabinoids Screen NEGATIVE NEGATIVE Total Creatine Kinase 229 H 29-168 U/L Creatine Kinase MB 1.1 <6.6 NG/ML Troponin I 0.086 H <0.028 NG/ML B-Type Natriuretic Peptide 360.9 H <100.0 PG/ML TSH [place] Testing 2.70 0.35-4.94 UIU/ML Test 03/20/22 02:57 03/20/22 05:00 03/20/22 10:44 Range/Units Lactic Acid Level 1.30 0.50-2.00 MMOL/L White Blood Count 8.1 4.3-11.0 10^3/uL Red Blood Count 3.63 L 3.80-5.11 10^6/uL Hemoglobin 11.1 L 11.5-16.0 g/dL Hematocrit 33 L 35-52 % Mean Corpuscular Volume 91 80-99 fL Mean Corpuscular Hemoglobin 31 25-34 pg Mean Corpuscular Hemoglobin Concent 34 32-36 g/dL Red Cell Distribution Width 15.9 H 10.0-14.5 % Platelet Count 156 130-400 10^3/uL Mean Platelet Volume 11.6 9.0-12.2 fL Immature Granulocyte % (Auto) 0 % Neutrophils (%) (Auto) 90 H 42-75 % Lymphocytes (%) (Auto) 4 L 12-44 % Monocytes (%) (Auto) 5 0-12 % Eosinophils (%) (Auto) 0 0-10 % Basophils (%) (Auto) 1 0-10 % Neutrophils # (Auto) 7.2 1.8-7.8 10^3/uL Lymphocytes # (Auto) 0.3 L 1.0-4.0 10^3/uL Monocytes # (Auto) 0.4 0.0-1.0 10^3/uL Eosinophils # (Auto) 0.0 0.0-0.3 10^3/uL Basophils # (Auto) 0.1 0.0-0.1 10^3/uL Immature Granulocyte # (Auto) 0.0 0.0-0.1 10^3/uL Sodium Level 137 135-145 MMOL/L Potassium Level 3.7 3.6-5.0 MMOL/L Chloride Level 109 H 98-107 MMOL/L Carbon Dioxide Level 14 L 21-32 MMOL/L Anion Gap 14 5-14 MMOL/L Blood Urea Nitrogen 64 H 7-18 MG/DL Creatinine 1.89 H 0.60-1.30 MG/DL Estimat Glomerular Filtration Rate 30 BUN/Creatinine Ratio 34 Glucose Level 118 H 70-105 MG/DL Calcium Level 8.6 8.5-10.1 MG/DL Corrected Calcium 9.8 8.5-10.1 MG/DL Phosphorus Level 4.6 2.3-4.7 MG/DL Magnesium Level 1.6 1.6-2.4 MG/DL Total Bilirubin 0.8 0.1-1.0 MG/DL Aspartate Amino Transf (AST/SGOT) 46 H 5-34 U/L Alanine Aminotransferase (ALT/SGPT) 25 0-55 U/L Alkaline Phosphatase 67 40-136 U/L Troponin I 0.105 H <0.028 NG/ML Total Protein 5.8 L 6.4-8.2 GM/DL Albumin 2.5 L 3.2-4.5 GM/DL Glucometer 176 H 70-110 MG/DL Physical Exam Physical Exam Vital Signs Vital Signs - First Documented 03/19/22 03/20/22 23:15 03:45 Temp 38.7 Pulse 134 Resp 26 B/P (MAP) 101/76 (84) Pulse Ox 94 O2 Delivery Room Air O2 Flow Rate 2.00 Capillary Refill : Less Than 3 Seconds Height, Weight, BMI Height: '" Weight: 146lbs. oz. 66.460692np; 20.79 BMI Method:Stated General Appearance: No Apparent Distress, Chronically ill, Cachetic, Other (PT IS MILDLY DYSPNEIC AT REST, AND LETHARGIC; PT IS INCONTINENT OF LARGE SOFT FO RMED STOOL, NORMAL BROWN COLOR, WELL A MASSIVE AMOUNT OF DRIED SOFT STOOL -SPECIMEN SENT TO LAB., PT STATES SHE DID NOT KNOW SHE HAD BEEN INCONTINENT OF STOOL. ) HEENT: PERRL/EOMI, Other (ORAL MUCOSA EXTREMELY DRY) Neck: Normal Inspection, Non Tender Respiratory: Accessory Muscle Use, Decreased Breath Sounds, Rhonci Cardiovascular: Regular Rate, Rhythm, No Edema, Systolic Murmur, Tachycardia Gastrointestinal: Normal Bowel Sounds, No Organomegaly, Non Tender, Soft Back: No CVA Tenderness Extremity: Normal Capillary Refill, No Pedal Edema Neurologic/Psychiatric: Alert, Oriented x3 (BUT VERY POOR MEMORY. ), No Motor/Sensory Deficits, die stamper II-XII Norm as Tested, Other (LETHARGIC) Skin: Normal Color, Warm/Dry, Other (POOR TURGOR) A/P-Cardiology Admission Diagnosis Sepsis Pneumonia Non-ST elevation myocardial infarction Peripheral arterial disease Congestive heart failure, chronic compensated left ventricular systolic dysfunction, ischemic cardiomyopathy Assessment/Plan Sepsis, pneumonia, admitted to intensive care unit and started on antibiotics. Managed by medical team. Hypotensive shock, on pressors. Continue to monitor blood pressure closely. Non-ST elevation myocardial infarction. Has extensive cardiac history, Had a cardiac catheterization done by Dr. Navarro in 2009 and stenting to the LAD and circumflex artery. Had a cardiac catheterization with Dr. Preston in December 2021, patient was noted to have severe three-vessel coronary artery disease involving the distal left main coronary artery. Has moderate left ventricular systolic dysfunction. She was referred to for bypass surgery. Procedure was postponed due to questionable stroke. She is scheduled to see Dr. Damon as an outpatient. Conservative management is recommended at this time. Congestive heart failure, chronic compensated left ventricular systolic dysfunction. Ischemic cardiomyopathy. She was started on carvedilol and lisinopril as an outpatient. Unable to tolerate these medication at this time due to hypotension. Planning to restart them once her blood pressure is more stable 2D echocardiogram was done on January 16, [address] Preston as dilated cardiomyopathy with ejection fraction 35 to 40%, grade 2 diastolic dysfunction, mild mitral regurgitation. Carotid artery stenosis, patient has severe stenosis at the right carotid artery, right subclavian artery and the origin of the right internal mammary artery. CT angiogram was done during her hospitalization showing significant left subclavian artery stenosis. Patient was referred for vascular surgery evaluation as discussed above Peripheral arterial disease, total occlusion of the right superficial femoral artery. Identified during her cardiac catheterization earlier in 2021. Referred for evaluation with vascular surgery. Active tobaccoism, educated and instructed on smoking cessation Diabetes mellitus, followed and managed by primary care physician Noncompliance with medications. Educated about compliance JONATHAN PATEL MD March 20, 2022 10:55
--- NOTE | 2022-03-20 10:57 | History & Physical-Hospitalist ---
History of Present Illness HPI/Chief Complaint PT ARRIVES VIA EMS FROM HOME--LIVES WITH HER SISTER AND [id number] WAS REPORTED TO EMS THAT PT HAS BEEN SICK FOR THE PAST FEW DAYS WITH FEVER AND DIARRHEA HAS NOT BEEN OUT OF BED FOR THE LAST 2 DAYS, PER EMS. TEMP IS 103.4 FOR EMS--PT UNAWARE OF FEVER BP 80'S/50'S, HR IN 140'S FOR EMS PT HAS COPD AND CONTINUES TO SMOKE. DOES NOT HAVE HOME O2 EMS REPORT THAT PT BECAME VERY SHORT OF BREATH VERY EASILY WITH MINIMAL EFFORT AT THE RESIDENCE. PT C/O PAIN TO LEFT RIBS FOR THE LAST WEEK. HURTS TO BREATHE OR MOVE STATES SHE DID FALL OVER A WEEK AGO, BUT HAS NOT SEEN ANYONE FOR THAT PROBLEM HAS A FREQUENT COUGH--PT STATES IS NORMAL FOR HER DENIES NAUSEA DENIES ABDOMINAL PAIN DOES NOT KNOW WHEN SHE LAST VOIDED DOES NOT KNOW WHEN SHE LAST ATE OR DRANK, BUT STATES SHE IS VERY THIRSTY NOW. CANNOT STATE WHY SHE HAS NOT BEEN EATING OR DRINKING. PT ALSO HAS HISTORY OF HTN, WELL CAD WITH STENTS IN 2009 PT ALSO HAS BEEN DX WITH DIABETES AND BEEN ON INSULIN IN THE PAST, BUT HAD QUIT TAKING IT 11 YEARS AGO PT WAS SEEN HERE 01/16/22--PT HAD NOT SEEN A DR IN AT LEAST 12 YEARS AT THAT TIME PT WAS ADMITTED AT THAT TIME WITH MULTIPLE PROBLEMS, INCLUDING SEVERE SEPSIS, UTI, CHF, PNEUMONIA, NSTEMI. 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 PT CANNOT STATE WHAT WAS DONE WHEN SHE WAS AT SHE STATES SHE HAS MEDICATION AT HOME, BUT DOES NOT KNOW WHAT MEDICATION SHE IS ON OR WHAT SHE TAKES IT FOR STATES SHE DOES NOT KNOW IF SHE TOOK HER MEDICATIONS TODAY OR NOT, OR WHEN SHE MIGHT HAVE LAST TAKEN ANY MEDICATION HAS NOT SOUGHT CARE UNTIL TONIGHT FOR THESE PROBLEMS STATES SHE "DOESN'T KNOW" WHY SHE DID NOT SEEK CARE PRIOR TO TONIGHT. Upon my arrival patient was somnolent would open up her eyes begin to answer question would trail off and she would fall back asleep. She did deny headache and denied pain. At baseline reportedly a poor historian. She had been scheduled for biopsy of a right adnexal mass suspicious for malignancy but did not stop her Plavix apparently was being rescheduled. She denied leg pain and there have been no reports of leg pain with known severe peripheral vascular disease. Date Seen 03/20/22 Time Seen by a Provider: 08:00 Attending Physician [place] PCP Admitting Physician: Dakotah Murrell MD Attending Physician: Dakotah Murrell MD Referring Physician Date of Admission March 20, 2022 at 02:35 Home Medications & Allergies Home Medications Reviewed patient Home Medication Reconciliation performed by pharmacy medication reconciliations implementation technician and/or nursing. Patients Allergies have been reviewed. Allergies Allergies Coded Allergies No Known Drug Allergies ([id number]/10) Past Applecr-Ywbhkc-Eaphuo Hx Patient Social History Tobacco Use?: Yes Tobacco type used: Cigarettes Smoking Status: Current Everyday Smoker Smokeless Tobacco Frequency: Never a User Use of E-Cig and/or Vaping dev: No Substance use?: No Alcohol Use?: No Pt feels they are or have been: No Immunizations Up To Date First/Initial COVID19 Vaccinat: 2020 Second COVID19 Vaccination Enrique: 2020 Tetanus Booster (TDap): Unknown Seasonal Allergies Seasonal Allergies: No Current Status status: No status: No Communicates: Verbally Primary Language: Italian Preferred Spoken Language: Italian Implanted or Applied Medical D: Stents Past Medical History Surgeries: Adenoidectomy, Cardiac, Coronary Stent, Tonsillectomy Cardiomyopathy, Coronary Artery Disease, Heart Attack, High Cholesterol, Hypertension, 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 SOCIAL HISTORY: -SMOKES 1 1/2 PPD -ETOH--DENIES USE -DRUGS DENIES USE PAST SURGICAL HISTORY: -TONSILLECTOMY / ADENOIDECTOMY -08/21/10--CARDIAC CATH WHEN PT HAD CA -DONE BY DR. MAYES-ANGIOPLASTY + STENT TO LAD; EF 25-30% -09/01/2010--CARDIAC CATH BY DR. MAYES--STENTS X 2 TO LEFT CIRCUMFLEX; CARDIAC CATH 01/16/[address] OSORIO: IMPRESSION: 1. Markedly elevated left ventricular end-diastolic pressure. 2. Severe qagan tayagungin three-vessel coronary artery disease as outlined above that did involve a bifurcation lesion of the distal left main coronary artery. 3. The patient is known to have moderate left ventricular systolic dysfunction with an estimated ejection fraction of 35-40% by echocardiogram performed prior to this procedure. There was no significant valvular heart disease identified on this echocardiogram. 4. The patient has significant disease of the right subclavian artery and branches as noted above. 5. The patient appears to have occlusion of the right superficial femoral artery as outlined above. 6. The patient will need a cardiothoracic surgical consultation for consideration of coronary artery bypass surgery. I will reach out to [facility] in this regard Review of Systems Constitutional: see HPI Physical Exam Physical Exam Vital Signs Vital Signs - First Documented 03/19/22 03/20/22 23:15 03:45 Temp 38.7 Pulse 134 Resp 26 B/P (MAP) 101/76 (84) Pulse Ox 94 O2 Delivery Room Air O2 Flow Rate 2.00 Capillary Refill : Less Than 3 Seconds Height, Weight, BMI Height: '" Weight: 146lbs. oz. 66.475996bx; 20.79 BMI Method:Stated General Appearance: No Apparent Distress, Thin HEENT: Pale Conjunctivae (L), Pale Conjunctivae (R) Respiratory: No Accessory Muscle Use, No Respiratory Distress, Other (Scattered rhonchi without wheezing or rales) Cardiovascular: Regular Rate, Rhythm, No Gallop, No Murmur, Other Extremity: Other ( trace edema dorsalis pedis and posterior tibial pulses are not palpable but feet are warm no ulceration noted chronic atrophic changes noted no hair present on the lower extremities.) Results Results/Procedures Labs Laboratory Tests 03/19/22 23:20 03/20/22 05:00 Patient resulted labs reviewed. Assessment/Plan Admission Diagnosis 1. Severe sepsis responding to IV fluids and antibiotics likely due to underlying pneumonia possible postobstructive process from underlying malignancy continue IV fluids and antibiotics cultures pending. 2. Right adnexal mass concerning for malignancy pneumonia has somewhat of an atypical appearance on CT scanning suggesting the possibility of underlying malignancy as well if the patient survives this hospital stay reattempt tissue diagnosis. 3. Diffuse vasculopathy currently not a candidate for any peripheral vascular work at this time overall prognosis extremely poor. 4. Altered mental status likely due to sepsis however if this does not clear and the patient remains somnolent will obtain CT head. Admission Status: Inpatient Order (span 2 midnights) Reason for Inpatient Admission: See admission diagnosis DAKOTAH MURRELL MD March 20, 2022 10:57
[2022-03-20] MEDS: guaiFENesin/DM (ROBITUSSIN DM) 10 ML UDC PO PRN ×3 (11:51→23:39)
[2022-03-20] MEDS: HYDROcodone/APAP 5 MG/325 MG (LORTAB) TAB PO PRN (14:39)
[2022-03-20] MEDS: CEFEPIME INJECTION 1,000 MG in NS (IVPB) 50 ML IV SCH (14:40)
--- NOTE | 2022-03-20 16:44 | Tele-ICU Progress Note ---
Subjective Date Seen by a Provider: March 20, 2022 Time Seen by a Provider: 16:40 Subjective/Events-last exam called for increasing work of breathing, RR up to 30, HR up to 120, some mottling of digits, BP and SpO2 ok, On IV Cefepime for RLL PNA, will get CXR, LA, CBC and ABG possibly gettting more septic, Yvan Underwood MD Sepsis Event Evaluation Height, Weight, BMI Height: '" Weight: 146lbs. oz. 66.808981lr; 20.79 BMI Method:Stated Focused Exam Lactate Level 03/19/22 23:20: Lactic Acid Level 3.88*H 03/20/22 01:00: Lactic Acid Level 3.00*H 03/20/22 02:57: Lactic Acid Level 1.30 Time of Focused Exam: 01:00 Exam Exam Patient acknowledged, consented, and participated in this virtual visit which was conducted using real time audio/video Vital Signs Date Time Temp Pulse Resp B/P (MAP) Pulse Ox O2 Delivery O2 Flow Rate FiO2 03/20/22 16:00 105 124/71 95 Room Air 03/20/22 15:00 95 123/70 94 Room Air 03/20/22 14:50 Room Air 03/20/22 14:00 94 117/72 96 Nasal Cannula 2.00 03/20/22 13:00 96 03/20/22 13:00 96 105/64 95 Nasal Cannula 2.00 03/20/22 12:00 97 Nasal Cannula 2.00 03/20/22 12:00 96 32 104/69 97 Nasal Cannula 03/20/22 11:22 36.0 03/20/22 11:00 96 38 101/65 95 Nasal Cannula 2.00 03/20/22 10:00 90 19 108/79 94 Nasal Cannula 2.00 03/20/22 09:00 84 21 104/69 96 Nasal Cannula 2.00 03/20/22 08:30 97 Nasal Cannula 2.00 03/20/22 08:00 77 22 102/66 96 Nasal Cannula 2.00 03/20/22 07:30 35.5 03/20/22 07:00 80 20 101/65 98 Nasal Cannula 2.00 03/20/22 07:00 80 03/20/22 06:00 79 22 101/65 97 Nasal Cannula 2.00 03/20/22 05:30 81 20 102/63 97 Nasal Cannula 2.00 03/20/22 05:00 82 22 106/66 98 Nasal Cannula 2.00 03/20/22 04:37 35.6 82 25 97/60 97 Nasal Cannula 2.00 03/20/22 04:30 95 Nasal Cannula 2.00 03/20/22 04:15 83 25 95/58 94 Nasal Cannula 2.00 03/20/22 04:12 84 03/20/22 04:00 87 12 82/54 92 Nasal Cannula 2.00 03/20/22 03:45 86 21 99/62 96 Nasal Cannula 2.00 03/20/22 00:28 38.6 03/20/22 00:28 38.6 03/19/22 23:15 38.7 134 26 101/76 (84) 94 Room Air I & O 03/20/22 07:00 Intake Total 1325 ml Output Total 100 ml Balance 1225 ml Height & Weight Height: '" Weight: 146lbs. oz. 66.023127dj; 20.79 BMI Method:Stated General Appearance: No Apparent Distress, Chronically ill, Cachetic, Other (PT IS MILDLY DYSPNEIC AT REST, AND LETHARGIC; PT IS INCONTINENT OF LARGE SOFT FORMED STOOL, NORMAL BROWN COLOR, WELL A MASSIVE AMOUNT OF DRIED SOFT STOOL -SPECIMEN SENT TO LAB., PT STATES SHE DID NOT KNOW SHE HAD BEEN INCONTI NENT OF STOOL. ) HEENT: PERRL/EOMI, Other (ORAL MUCOSA EXTREMELY DRY) Neck: Normal Inspection, Non Tender Respiratory: Accessory Muscle Use, Decreased Breath Sounds, Rhonci Cardiovascular: Regular Rate, Rhythm, No Edema, Systolic Murmur, Tachycardia Capillary Refill: Less Than 3 Seconds Gastrointestinal: normal bowel sounds, non tender, soft, other (stool cultures pending) Extremity: Normal Capillary Refill, No Pedal Edema Neurologic/Psychiatric: Alert, Oriented x3 (BUT VERY POOR MEMORY. ), No Motor/Sensory Deficits, global technical writer II-XII Norm as Tested, Other (LETHARGIC) Skin: Normal Color, Warm/Dry, Other (POOR TURGOR) Results Lab Laboratory Tests 03/19/22 23:20 03/20/22 05:00 Assessment/Plan Assessment/Plan may be getting more septic, will get CXR, LA, CBC, ABG Critical Care: Critically Ill Patient CHONG UNDERWOOD MD March 20, 2022 16:44
[2022-03-20 17:13] LABS: ABG BASE EXCESS -9.1 MMOL/L (-2.5-2.5); ABG OXYGEN SATURATION 96 % (94-100); ABG PCO2 23 MMHG (35-45); ABG PH 7.42 (7.37-7.43); ABG PO2 68 MMHG (79-93); ABG TCO2 15.7 MMOL/L (21.0-31.0); ALLENS TEST POSITIVE; INSPIRED O2 6 L; PATIENT TEMP 35.2; VENTILATOR NO
--- NOTE | 2022-03-20 17:17 | Diagnostic Imaging Report ---
EXAMINATION: Chest 1 view. HISTORY: Respiratory distress. COMPARISON: 03/20/2022. FINDINGS: Heart size and pulmonary vasculature are normal. There are patchy interstitial opacities within the lung bases, increased from prior study. Likely small left pleural effusion. No pneumothorax. The osseous structures are intact. IMPRESSION: Increasing left pleural effusion and bibasilar interstitial opacities. Findings likely represent worsening pulmonary edema, atelectasis or pneumonia. Dictated by: Dictated on workstation # [id number]
[2022-03-20 17:21] LABS: BASOPHILS # (AUTO) 0.1 10^3/uL (0.0-0.1); BASOPHILS % (AUTO) 1 % (0-10); EOSINOPHILS # (AUTO) 0.2 10^3/uL (0.0-0.3); EOSINOPHILS % (AUTO) 3 % (0-10); HEMATOCRIT 42 % (35-52); HEMOGLOBIN 13.7 g/dL (11.5-16.0); LYMPHOCYTES # (AUTO) 0.4 10^3/uL (1.0-4.0); LYMPHOCYTES % (AUTO) 6 % (12-44); MEAN CORPUSCULAR HEMOGLOBIN 31 pg (25-34); MEAN CORPUSCULAR HGB CONC 33 g/dL (32-36); MEAN CORPUSCULAR VOLUME 94 fL (80-99); MEAN PLATELET VOLUME 12.2 fL (9.0-12.2); MONOCYTES # (AUTO) 0.2 10^3/uL (0.0-1.0); MONOCYTES % (AUTO) 3 % (0-12); NEUTROPHILS % (AUTO) 87 % (42-75); PLATELET COUNT 174 10^3/uL (130-400); WHITE BLOOD COUNT 6.9 10^3/uL (4.3-11.0)
--- NOTE | 2022-03-20 18:03 | Progress Note ---
Standard Progress Note Progress Notes/Assess & Plan Date Seen by a Provider: March 20, 2022 Time Seen by a Provider: 17:58 Progress/Assessment & Plan suspect either dropping cardiac output or sepsis, will get echo, EKG, one dose of IV vancomoycin Final Diagnosis called for increasing lactate 3.99, pt has mottling of extremities, Hx of depressed LVEF will get EKG, echo [tech on way in] repeat LA in 2 hours, ABG 7.42//, suggests met acidosis, either from sepsis or depressed cardiac output or both will also give one dose of IV vancomycin CHONG UNDERWOOD MD March 20, 2022 18:03
[2022-03-20] MEDS ORDERED: VANCOMYCIN INJECTION 1,000 MG in NS (IVPB) 250 ML IV ONE (18:15)
[2022-03-20] MEDS ORDERED: NS (IVPB) 250 ML ONE (18:23)
[2022-03-20] MEDS ORDERED: VANCOMYCIN 1000 MG/VIAL ONE (18:23)
[2022-03-20] MEDS ORDERED: NS (IVPB) 500 ML IV ONE (22:00)
[2022-03-20] MEDS ORDERED: NS IV 500 ML 500 ML ONE (22:15)
[2022-03-21] MEDS: VASOPRESSIN INJECTION 20 UNIT in NS (IVPB) 100 ML IV SCH ×2 (03:14→13:36)
[2022-03-21] MEDS: CEFEPIME INJECTION 1,000 MG in NS (IVPB) 50 ML IV SCH ×3 (03:24→20:59)
[2022-03-21] MEDS: metroNIDAZOLE 500MG/100ML IVPB 100 ML IV SCH ×2 (04:42→15:58)
[2022-03-21] MEDS: ENOXAPARIN 80 MG/0.8 ML (LOVENOX) SYR SC SCH (04:42)
[2022-03-21] MEDS: HYDROcodone/APAP 5 MG/325 MG (LORTAB) TAB PO PRN ×3 (04:46→20:51)
[2022-03-21] MEDS: guaiFENesin/DM (ROBITUSSIN DM) 10 ML UDC PO PRN ×4 (04:46→23:19)
[2022-03-21 05:00] LABS: BASOPHILS % (AUTO) 0 % (0-10); EOSINOPHILS # (AUTO) 0.4 10^3/uL (0.0-0.3); EOSINOPHILS % (AUTO) 4 % (0-10); HEMATOCRIT 38 % (35-52); HEMOGLOBIN 12.8 g/dL (11.5-16.0); LYMPHOCYTES # (AUTO) 0.2 10^3/uL (1.0-4.0); LYMPHOCYTES % (AUTO) 3 % (12-44); MEAN CORPUSCULAR HEMOGLOBIN 31 pg (25-34); MEAN CORPUSCULAR HGB CONC 34 g/dL (32-36); MEAN CORPUSCULAR VOLUME 91 fL (80-99); MEAN PLATELET VOLUME 12.2 fL (9.0-12.2); MONOCYTES # (AUTO) 0.3 10^3/uL (0.0-1.0); MONOCYTES % (AUTO) 3 % (0-12); NEUTROPHILS # (AUTO) 7.8 10^3/uL (1.8-7.8); NEUTROPHILS % (AUTO) 88 % (42-75); PLATELET COUNT 181 10^3/uL (130-400); WHITE BLOOD COUNT 8.8 10^3/uL (4.3-11.0)
[2022-03-21 05:19] LABS: ALBUMIN 2.4 GM/DL (3.2-4.5); POTASSIUM 3.4 MMOL/L (3.6-5.0)
[2022-03-21 05:20] LABS: CALCIUM 8.7 MG/DL (8.5-10.1)
[2022-03-21 05:21] LABS: TOTAL PROTEIN 5.9 GM/DL (6.4-8.2)
[2022-03-21 05:23] LABS: BILIRUBIN,TOTAL 0.9 MG/DL (0.1-1.0)
[2022-03-21 05:25] LABS: CREATININE SERUM 1.22 MG/DL (0.60-1.30); PHOSPHORUS 3.3 MG/DL (2.3-4.7)
[2022-03-21 05:27] LABS: MAGNESIUM 1.6 MG/DL (1.6-2.4)
--- NOTE | 2022-03-21 06:40 | Consultation - Surgery ---
History of Present Illness History of Present Illness Patient Consulted On(aquilino/time) 03/21/22 06:35 Date Seen by Provider: March 21, 2022 Time Seen by Provider: 05:00 Reason for Visit: Coronary artery disease History of Present Illness Consult requested for central line placement. 61 year old female who admitted for sepsis. Poor historian. Has been hypotensive and on pressors. Slight confusion. Has had fever and diarrhea. 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 She was supposed to go for biopsy, but being rescheduled. Patient not having any abdominal pain or complaints at this time. Allergies and Home Medications Allergies Coded Allergies: No Known Drug Allergies (Unverified , 08/21/10) Patient Home Medication List Home Medication List Reviewed: Yes Aspirin (Aspirin Ec 325 Mg) 325 Mg Tabec, 325 MG PO DAILY, (Reported) Entered as Reported by: THUY LIZAMA on 08/24/10 1017 Atenolol (Tenormin 25 Mg) 25 Mg Tablet, 25 MG PO DAILY, (Reported) Entered as Reported by: THUY LIZAMA on 08/24/10 1017 Clopidogrel Bisulfate (Plavix 75 Mg) 75 Mg Tablet, 75 MG PO DAILY, (Reported) Entered as Reported by: THUY LIZAMA on 08/24/10 1017 Furosemide (Furosemide) 40 Mg Tablet, 60 MG PO DAILY, (Reported) Entered as Reported by: THUY LIZAMA on 08/24/10 1017 Insulin Determir (Levemir Pen) 100 U/Ml Insuln.pen, 15 UNITS SQ HS, (Reported) Entered as Reported by: THUY LIZAMA on 08/24/10 1028 Levothyroxine Sodium (Levothyroxine 50 Mcg Tab) 50 Mcg Tablet, 1 EACH PO DAILY, (Reported) Entered as Reported by: COLT CRISTINA on 08/21/10 0913 Levothyroxine Sodium (Levothyroxine 50 Mcg Tab) 50 Mcg Tablet, 1 EACH PO DAILY Prescribed by: WINTER JENNINGS on 07/27/13 1702 Lisinopril (Zestril) 5 Mg Tablet, 5 MG PO DAILY, (Reported) Entered as Reported by: THUY LIZAMA on 08/24/10 1017 Magnesium Oxide (Magnesium Oxide) 400 Mg Tablet, 400 MG PO DAILY, (Reported) Entered as Reported by: THUY LIZAMA on 08/24/10 1017 Metformin Hcl (Metformin 500 Mg) 500 Mg Tablet, 2 EACH PO BID WITH MEALS, (Reported) Entered as Reported by: COLT CRISTINA on 08/21/10 0913 Phenazopyridine Hcl (Pyridium) 200 Mg Tablet, 1 EACH PO TID PRN Prescribed by: WINTER JENNINGS on 07/27/13 1657 Potassium Chloride (Potassium Chloride 20 Meq Tab) 20 Meq Tab.prt.sr, 20 MEQ PO DAILY, (Reported) Entered as Reported by: THUY LIZAMA on 08/24/10 1017 Pravastatin Sodium (Pravachol) 20 Mg Tablet, 20 MG PO HS, (Reported) Entered as Reported by: THUY LIZAMA on 08/24/10 1017 Trimethoprim/Sulfamethoxazole (Bactrim Ds) 1 Ea Tablet, 1 EA PO BID Prescribed by: FAY BENNETT on 09/03/13 1542 Past Ougztle-Zipltv-Ldaova Hx Patient Social History Smoking Status: Current Everyday Smoker Alcohol Use?: No Have you traveled recently?: No Immunizations Up To Date Tetanus Booster (TDap): Unknown Seasonal Allergies Seasonal Allergies: No Surgeries History of Surgeries: Yes Surgeries: Adenoidectomy, Cardiac, Coronary Stent, Tonsillectomy Respiratory History of Respiratory Disorde: No Cardiovascular History of Cardiac Disorders: Yes (STEMI 2009 WITH STENTS X3 TO LAD & L CIRCUMFLEX;CHF;EF25-30%;PAD;CAROTID DZ) Cardiac Disorders: Cardiomyopathy, Coronary Artery Disease, Heart Attack, High Cholesterol, Hypertension, Peripheral Vascular Neurological History of Neurological Disord: No Reproductive System Hx Reproductive Disorders: No 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 Genitourinary History of Genitourinary Disor: Yes Genitourinary Disorders: Bladder Infection, Kidney Stones, UTI-Chronic Gastrointestinal History of Gastrointestinal Di: No Musculoskeletal History of Musculoskeletal Dis: No Endocrine History of Endocrine Disorders: Yes (NON COMPLAINT) Endocrine Disorders: Diabetes, Insulin dep, Hypothyroidsim HEENT History of HEENT Disorders: No Cancer History of Cancer: No Psychosocial History of Psychiatric Problem: No Integumentary History of Skin or Integumenta: No Blood Transfusions History of Blood Disorders: No Reviewed Nursing Assessment Reviewed/Agree w Nursing PMH: Yes Family Medical History Significant Family History: No Pertinent Family Hx Review of Systems-General Constitutional: No diaphoresis; fever EENTM: No blurred vision, No double vision Respiratory: No cough, No dyspnea on exertion Cardiovascular: No chest pain, No palpitations Gastrointestinal: No abdominal pain; diarrhea; No nausea Genitourinary: No discharge Musculoskeletal: No back pain, No joint pain Skin: No change in color, No change in hair/nails Psychiatric/Neurological: Denies Anxiety, Denies Depressed, Denies Emotional Problems All Other Systems Reviewed Negative Unless Noted: Yes (Negative excepted noted.) Physical Exam-General Problems Physical Exam Vital Signs Vital Signs - First Documented 03/19/22 03/20/22 23:15 03:45 Temp 38.7 Pulse 134 Resp 26 B/P (MAP) 101/76 (84) Pulse Ox 94 O2 Delivery Room Air O2 Flow Rate 2.00 Capillary Refill : Less Than 3 Seconds General Appearance: no apparent distress, thin HEENT: PERRL/EOMI, normal ENT inspection Neck: non-tender, supple Respiratory: chest non-tender, no respiratory distress, no accessory muscle use Cardiovascular: tachycardia Gastrointestinal: non tender, soft Rectal: deferred Back: normal inspection, no CVA tenderness Extremities: non-tender Neurologic/Psychiatric: alert; No oriented x 3 Skin: normal color, warm/dry Lymphatic: no adenopathy Data Review Labs Laboratory Tests 03/20/22 10:44: Glucometer 176H 03/20/22 16:02: Glucometer 191H 03/20/22 17:00: Blood Gas Puncture Site RIGHT BRACHIAL, Blood Gas Patient Temperature 35.2, Arterial Blood pH 7.42, Arterial Blood Partial Pressure CO2 23L, Arterial Blood Partial Pressure O2 68L, Arterial Blood HCO3 15*L, Arterial Blood Total CO2 15.7L, Arterial Blood Oxygen Saturation 96, Arterial Blood Base Excess -9.1L, Hayden Test POSITIVE, Blood Gas Ventilator Setting NO, Blood Gas Inspired Oxygen 6 L 03/20/22 17:13: White Blood Count 6.9, Red Blood Count 4.49, Hemoglobin 13.7#, Hematocrit 42, Mean Corpuscular Volume 94, Mean Corpuscular Hemoglobin 31, Mean Corpuscular Hemoglobin Concent 33, Red Cell Distribution Width 16.0H, Platelet Count 174, Mean Platelet Volume 12.2, Immature Granulocyte % (Auto) 1, Neutrophils (%) (Auto) 87H, Lymphocytes (%) (Auto) 6L, Monocytes (%) (Auto) 3, Eosinophils (%) (Auto) 3, Basophils (%) (Auto) 1, Neutrophils # (Auto) 6.0, Lymphocytes # (Auto) 0.4L, Monocytes # (Auto) 0.2, Eosinophils # (Auto) 0.2, Basophils # (Auto) 0.1, Immature Granulocyte # (Auto) 0.1, Lactic Acid Level 3.99*H 03/20/22 19:10: Lactic Acid Level 1.95 03/20/22 21:46: Glucometer 74 03/21/22 04:30: White Blood Count 8.8, Red Blood Count 4.15, Hemoglobin 12.8, Hematocrit 38, Mean Corpuscular Volume 91, Mean Corpuscular Hemoglobin 31, Mean Corpuscular Hemoglobin Concent 34, Red Cell Distribution Width 16.0H, Platelet Count 181, Mean Platelet Volume 12.2, Immature Granulocyte % (Auto) 2, Neutrophils (%) (Auto) 88H, Lymphocytes (%) (Auto) 3L, Monocytes (%) (Auto) 3, Eosinophils (%) (Auto) 4, Basophils (%) (Auto) 0, Neutrophils # (Auto) 7.8, Lymphocytes # (Auto) 0.2L, Monocytes # (Auto) 0.3, Eosinophils # (Auto) 0.4H, Basophils # (Auto) 0.0, Immature Granulocyte # (Auto) 0.1, Sodium Level 137, Potassium Level 3.4L, Chloride Level 108H, Carbon Dioxide Level 15L, Anion Gap 14, Blood Urea Nitrogen 48H, Creatinine 1.22, Estimat Glomerular Filtration Rate 51, BUN/Creatinine Ratio 39, Glucose Level 86, Calcium Level 8.7, Corrected Calcium 10.0, Phosphorus Level 3.3, Magnesium Level 1.6, Total Bilirubin 0.9, Aspartate Amino Transf (AST/SGOT) 73H, Alanine Aminotransferase (ALT/SGPT) 52, Alkaline Phosphatase 94, Total Protein 5.9L, Albumin 2.4L Microbiology 03/20/22 MRSA Screen - Final, Complete MRSA not isolated 03/20/22 Fecal Leukocyte Stain - Final, Resulted 03/20/22 C. difficile GDH Antigen & Toxins - Final, Resulted 03/20/22 Stool Culture - Preliminary, Resulted Assessment/Plan Assessment/Plan Assessment/Plan sepsis hypotension diarrhea adenaxal mass needing pressors and central iv access she is alert and oriented but is poor historian will place central line due to pressor use. will sign off please call if needed Procedure: u/s guided right IJ central line placement. Right neck prepped and draped in sterile fashion. 3 mL of 1% lidocaine injected to anesthetize the right neck. Right IJ accessed under u/s guidance. Dark nonpulsatile blood flow. Wire inserted. Needle removed. 11 blade scalpel use to make small incision at insertion point. Dilator advanced over wire and removed. Tripple lumen catheter inserted over wire and wire removed. Catheter secured. All port accessed and flushed without difficulty. Sterile bandage applied. Chest x ray pending. MILO EVANS DO March 21, 2022 06:40
[2022-03-21] MEDS: MAGNESIUM 1 GM/100 ML IVPB 100 ML IV SCH (06:43)
[2022-03-21] MEDS: POTASSIUM CL 10MEQ/50ML IVPB 50 ML IV SCH (06:43)
[2022-03-21] MEDS: inSUlin ASPART (NovoLOG) 1 UNIT/0.01 ML (CHARGE PER UNIT) SC SCH ×4 (06:44→20:50)
[2022-03-21] MEDS: LACTATED RINGERS 1,000 ML IV SCH ×3 (06:44→18:38)
[2022-03-21] MEDS: KCL 20 MEQ TAB (K-DUR) PO SCH (06:44)
--- NOTE | 2022-03-21 07:54 | Diagnostic Imaging Report ---
EXAMINATION: Chest radiograph, portable AP view. DATE: 03/21/2022 6:29 AM INDICATION: 61-year-old female, central line placement. COMPARISON: March 20, 2022. FINDINGS: There is a newly placed right internal jugular central venous line with tip overlying the mid SVC. Heart size and mediastinal contours are unchanged. There is no identified pneumothorax. There is mid and lower lung zone consolidation bilaterally. There is obscuration of visualization of the left hemidiaphragm. Overall opacification of the thorax is essentially unchanged. IMPRESSION: 1. Newly placed right internal jugular central venous line overlies the mid SVC. 2. Unchanged nonspecific mid and lower lung zone consolidation bilaterally which may relate to effusions, infiltrate, and/or atelectasis. Dictated by: Dictated on workstation # [id number]
[2022-03-21] MEDS: PANTOPRAZOLE 40 MG (PROTONIX) VIAL IV SCH (09:07)
[2022-03-21] MEDS: ACETAMINOPHEN 500 MG TAB (TYLENOL) PO PRN (09:07)
--- NOTE | 2022-03-21 09:20 | Cardiology Progress Note ---
Subjective Date Seen by Provider: March 21, 2022 Time Seen by Provider: 09:18 Subjective/Events-last exam Patient was seen at bedside, laying down comfortably Lethargic, reporting some improvement in her breathing. Review of Systems General: No Chills, No Night Sweats; Fatigue, Malaise; No Appetite, No Other HEENT: No Head Aches, No Visual Changes, No Eye Pain, No Ear Pain, No Dysphasia, No Sinus Congestion, No Post Nasal Drip, No Sore Throat, No Other Pulmonary: Dyspnea; No Cough, No Pleuritic Chest Pain, No Other Cardiovascular: No: Chest Pain, Palpitations, Orthopnea, Paroxysmal Noc. Dyspnea, Edema, Lt Headedness, Other Focused Exam Lactate Level 03/20/22 02:57: Lactic Acid Level 1.30 03/20/22 17:13: Lactic Acid Level 3.99*H 03/20/22 19:10: Lactic Acid Level 1.95 Time of Focused Exam: 01:00 Objective-Cardiology Exam Last Set of Vital Signs Vital Signs I&O Intake and Output 03/21/22 00:00 Intake Total 3305 ml Output Total 850 ml Balance 2455 ml Intake Oral 1405 ml IV Total 1900 ml Output Urine Total 850 ml Daily Weight Change Yes, Greater than 33 lbs General: Alert, Oriented X3, Cooperative HEENT: Atraumatic, PERRLA Neck: Supple, No JVD, No Thyromegaly Lungs: Normal Air Movement, Other (Bilateral rhonchi) Heart: Regular Rate, Normal S1, Normal S2, No Murmurs Abdomen: Normal Bowel Sounds, Soft, No Tenderness, No Hepatosplenomegaly, No Masses Extremities: No Clubbing, No Cyanosis, No Edema, Normal Pulses, No Tenderness/Swelling Skin: No Rashes, No Breakdown, No Significant Lesion Neuro: Normal Gait, Normal Speech, Strength at 5/5 X4 Ext, Normal Tone, Sensation Intact Psych/Mental Status: Mental Status NL, Mood NL Results Lab Laboratory Tests 03/20/22 17:13 03/21/22 04:30 A/P-Cardiology Admission Diagnosis Sepsis Pneumonia Non-ST elevation myocardial infarction Peripheral arterial disease Congestive heart failure, chronic compensated left ventricular systolic dysfunction, ischemic cardiomyopathy Assessment/Plan Sepsis, pneumonia, receiving antibiotic Improving slowly. Continue to monitor Hypotensive shock, on pressors. Blood pressure is better today. Continue to monitor. Non-ST elevation myocardial infarction. Has extensive cardiac history, Had a cardiac catheterization done by Dr. Navarro in 2009 and stenting to the LAD and circumflex artery. Had a cardiac catheterization with Dr. Preston in December 2021, patient was noted to have severe three-vessel coronary artery disease involving the distal left main coronary artery. Has moderate left ventricular systolic dysfunction. She was referred to for bypass surgery. Procedure was postponed due to questionable stroke. She is scheduled to see Dr. Damon as an outpatient. Conservative management is recommended at this time. Congestive heart failure, chronic compensated left ventricular systolic dysfunction. Ischemic cardiomyopathy. She was started on carvedilol and lisinopril as an outpatient. Unable to tolerate these medication at this time due to hypotension. Planning to restart them once her blood pressure is more stable 2D echocardiogram was done on January 16, [address] Preston as dilated cardiomyopathy with ejection fraction 35 to 40%, grade 2 diastolic dysfunction, mild mitral regurgitation. 2D echo was repeated on March 20, 2022 due to severe hypotension. Dilated left ventricle with severe diffuse left ventricular hypokinesia, apical akinesia, ejection fraction 30 to 35%. Mild mitral regurgitation, PA pressure around 20 mmHg Carotid artery stenosis, patient has severe stenosis at the right carotid artery, right subclavian artery and the origin of the right internal mammary artery. CT angiogram was done during her hospitalization showing significant left subclavian artery stenosis. Patient was referred for vascular surgery evaluation as discussed above Peripheral arterial disease, total occlusion of the right superficial femoral artery. Identified during her cardiac catheterization earlier in 2021. Referred for evaluation with vascular surgery. Active tobaccoism, educated and instructed on smoking cessation Diabetes mellitus, followed and managed by primary care physician Noncompliance with medications. Educated about compliance JONATHAN PATEL MD March 21, 2022 09:20
--- NOTE | 2022-03-21 09:48 | Tele-ICU Progress Note ---
Subjective Date Seen by a Provider: March 21, 2022 Time Seen by a Provider: 08:10 Subjective/Events-last exam This virtual visit was conducted using real time audio/video. Thank you for asking us to see this patient for respiratory insufficiency due to BLL pna, sepsis Recent events: cough w chest soreness PE: VSS. O2 sat 93% on 6 LPM NC. HEENT: No obvious masses, adenopathy or JVD. Chest: coarse, diminished. CV: RRR S1 S2 No murmur or added sounds. Abd: Non-tender. Bowel sounds Y. : Unremarkable. Lang Y. RIVETER HAND/psychiatric: Grossly intact. No obvious focal findings. Extremities: No edema. Capillary refill < 3 seconds. Skin: unremarkable. Results: ElevatedBUN 48. Decreased K 3.4. B.42//68 on 6 LPM.. CXR: Hyperinflated, BLL infilts.. Available chart/ vitals / labs / images reviewed. Video assessment done using teleICU camera, rest of exam as per RN. A/P: Respiratory insufficiency: Continue present management with NC, robitussin. Narcotics PRN for severe cough. Monitor for increasing oxygenation needs and/or need for intubation. Critical Care: critically ill patient. Cont. abx., pressor, PPI, SSI, shantanu. Replace K. Discussed with CARLTON Corral. Asked RN to reach out to eICU if any questions or concerns later. Time spent with patient/coordination of care with other health professionals (mins): 30. Sepsis Event Evaluation Height, Weight, BMI Height: '" Weight: 146lbs. oz. 66.715133zs; 21.55 BMI Method:Stated Focused Exam Lactate Level 03/20/22 02:57: Lactic Acid Level 1.30 03/20/22 17:13: Lactic Acid Level 3.99*H 03/20/22 19:10: Lactic Acid Level 1.95 Time of Focused Exam: 01:00 Exam Exam Patient acknowledged, consented, and participated in this virtual visit which was conducted using real time audio/video Vital Signs Date Time Temp Pulse Resp B/P (MAP) Pulse Ox O2 Delivery O2 Flow Rate FiO2 03/21/22 08:00 96 14 96/67 97 Nasal Cannula 6.00 03/21/22 08:00 36.4 03/21/22 08:00 95 Nasal Cannula 6.00 03/21/22 07:16 97 Nasal Cannula 5.00 03/21/22 07:00 93 25 95/74 98 Nasal Cannula 6.00 03/21/22 07:00 93 03/21/22 06:00 92 20 98/69 98 Nasal Cannula 6.00 03/21/22 05:00 91 15 99/72 100 Nasal Cannula 6.00 03/21/22 04:00 95 Nasal Cannula 6.00 03/21/22 04:00 84 15 98/77 100 Nasal Cannula 6.00 03/21/22 03:00 85 18 94/67 99 Nasal Cannula 6.00 03/21/22 02:00 86 18 103/72 98 Nasal Cannula 6.00 03/21/22 01:00 82 19 101/71 98 Nasal Cannula 6.00 03/21/22 01:00 91 03/21/22 00:19 95 Nasal Cannula 6.00 03/21/22 00:00 92 26 92/68 98 Nasal Cannula 6.00 03/20/22 23:15 68/50 03/20/22 23:00 86 26 86/63 97 Nasal Cannula 6.00 03/20/22 22:57 75/52 03/20/22 22:00 85 22 69/48 97 Nasal Cannula 6.00 03/20/22 21:45 35.6 03/20/22 21:00 90 24 78/53 95 Nasal Cannula 6.00 03/20/22 20:00 97 Nasal Cannula 6.00 03/20/22 20:00 94 32 84/58 96 Nasal Cannula 6.00 03/20/22 19:40 35.8 03/20/22 19:00 103 03/20/22 19:00 103 21 84/58 95 Nasal Cannula 6.00 03/20/22 18:36 94 High Flow N/C 6.00 03/20/22 18:00 108 43 95/75 96 Nasal Cannula 6.00 03/20/22 17:51 Nasal Cannula 6.00 03/20/22 17:00 115 39 113/69 96 Room Air 03/20/22 17:00 112 41 98 50.00 03/20/22 16:45 97 Nasal Cannula 6.00 03/20/22 16:00 105 124/71 95 Room Air 03/20/22 15:00 95 123/70 94 Room Air 03/20/22 14:50 Room Air 03/20/22 14:00 94 117/72 96 Nasal Cannula 2.00 03/20/22 13:00 96 03/20/22 13:00 96 105/64 95 Nasal Cannula 2.00 03/20/22 12:00 97 Nasal Cannula 2.00 03/20/22 12:00 96 32 104/69 97 Nasal Cannula 03/20/22 11:22 36.0 03/20/22 11:00 96 38 101/65 95 Nasal Cannula 2.00 03/20/22 10:00 90 19 108/79 94 Nasal Cannula 2.00 I & O 03/21/22 07:00 Intake Total 3580 ml Output Total 1075 ml Balance 2505 ml Height & Weight Height: '" Weight: 146lbs. oz. 66.820492eq; 21.55 BMI Method:Stated General Appearance: No Apparent Distress, Chronically ill, Cachetic, Other (PT IS MILDLY DYSPNEIC AT REST, AND LETHARGIC; PT IS INCONTINENT OF LARGE SOFT FORMED STOOL, NORMAL BROWN COLOR, WELL A MASSIVE AMOUNT OF DRIED SOFT STOOL -SPECIMEN SENT TO LAB., PT STATES SHE DID NOT KNOW SHE HAD BEEN INCONTINENT OF STOOL. ) HEENT: PERRL/EOMI, Other (ORAL MUCOSA EXTREMELY DRY) Neck: Normal Inspection, Non Tender Respiratory: Accessory Muscle Use, Decreased Breath Sounds, Rhonci Cardiovascular: Regular Rate, Rhythm, No Edema, Systolic Murmur, Tachycardia Capillary Refill: Less Than 3 Seconds Gastrointestinal: non tender, soft Extremity: Normal Capillary Refill, No Pedal Edema Neurologic/Psychiatric: Alert, Oriented x3 (BUT VERY POOR MEMORY. ), No Motor/Sensory Deficits, tire tester II-XII Norm as Tested, Other (LETHARGIC) Skin: Normal Color, Warm/Dry, Other (POOR TURGOR) Results Lab Laboratory Tests 03/19/22 23:20 03/20/22 05:00 03/20/22 17:13 03/21/22 04:30 Assessment/Plan Assessment/Plan See free text. Critical Care: Critically Ill Patient LEILANI ORELLANA MD March 21, 2022 09:48
--- NOTE | 2022-03-21 11:16 | Progress Note - Hospitalist ---
Subjective HPI/CC On Admission Date Seen by Provider: March 21, 2022 Time Seen by Provider: 08:30 PT ARRIVES VIA EMS FROM HOME--LIVES WITH HER SISTER AND [id number] WAS REPORTED TO EMS THAT PT HAS BEEN SICK FOR THE PAST FEW DAYS WITH FEVER AND DIARRHEA HAS NOT BEEN OUT OF BED FOR THE LAST 2 DAYS, PER EMS. TEMP IS 103.4 FOR EMS--PT UNAWARE OF FEVER BP 80'S/50'S, HR IN 140'S FOR EMS PT HAS COPD AND CONTINUES TO SMOKE. DOES NOT HAVE HOME O2 EMS REPORT THAT PT BECAME VERY SHORT OF BREATH VERY EASILY WITH MINIMAL EFFORT AT THE RESIDENCE. PT C/O PAIN TO LEFT RIBS FOR THE LAST WEEK. HURTS TO BREATHE OR MOVE STATES SHE DID FALL OVER A WEEK AGO, BUT HAS NOT SEEN ANYONE FOR THAT PROBLEM HAS A FREQUENT COUGH--PT STATES IS NORMAL FOR HER DENIES NAUSEA DENIES ABDOMINAL PAIN DOES NOT KNOW WHEN SHE LAST VOIDED DOES NOT KNOW WHEN SHE LAST ATE OR DRANK, BUT STATES SHE IS VERY THIRSTY NOW. CANNOT STATE WHY SHE HAS NOT BEEN EATING OR DRINKING. PT ALSO HAS HISTORY OF HTN, WELL CAD WITH STENTS IN 2009 PT ALSO HAS BEEN DX WITH DIABETES AND BEEN ON INSULIN IN THE PAST, BUT HAD QUIT TAKING IT 11 YEARS AGO PT WAS SEEN HERE 01/16/22--PT HAD NOT SEEN A DR IN AT LEAST 12 YEARS AT THAT TIME PT WAS ADMITTED AT THAT TIME WITH MULTIPLE PROBLEMS, INCLUDING SEVERE SEPSIS, UTI, CHF, PNEUMONIA, NSTEMI. 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 PT CANNOT STATE WHAT WAS DONE WHEN SHE WAS AT SHE STATES SHE HAS MEDICATION AT HOME, BUT DOES NOT KNOW WHAT MEDICATION SHE IS ON OR WHAT SHE TAKES IT FOR STATES SHE DOES NOT KNOW IF SHE TOOK HER MEDICATIONS TODAY OR NOT, OR WHEN SHE MIGHT HAVE LAST TAKEN ANY MEDICATION HAS NOT SOUGHT CARE UNTIL TONIGHT FOR THESE PROBLEMS STATES SHE "DOESN'T KNOW" WHY SHE DID NOT SEEK CARE PRIOR TO TONIGHT. Upon my arrival patient was somnolent would open up her eyes begin to answer question would trail off and she would fall back asleep. She did deny headache and denied pain. At baseline reportedly a poor historian. She had been scheduled for biopsy of a right adnexal mass suspicious for malignancy but did not stop her Plavix apparently was being rescheduled. She denied leg pain and there have been no reports of leg pain with known severe peripheral vascular disease. Subjective/Events-last exam Patient awake and alert today much improved reports feeling fatigued. No diffi culty with fluids asking for solids. No nausea or abdominal pain. Slightly loose but nonproductive cough. No night sweats chills or fever reported. Focused Exam Lactate Level 03/20/22 02:57: Lactic Acid Level 1.30 03/20/22 17:13: Lactic Acid Level 3.99*H 03/20/22 19:10: Lactic Acid Level 1.95 Time of Focused Exam: 01:00 Objective Exam Vital Signs Vital Signs Date Time Temp Pulse Resp B/P (MAP) Pulse Ox O2 Delivery O2 Flow Rate FiO2 03/21/22 10:00 94 35 88/67 97 Nasal Cannula 6.00 03/21/22 08:00 36.4 Capillary Refill : Less Than 3 Seconds General Appearance: No Apparent Distress, Chronically ill Respiratory: No Accessory Muscle Use, No Respiratory Distress, Other (Anterior chest is clear there is significant diminishment of breath sounds posteriorly with some scattered rales no wheezing noted) Cardiovascular: Regular Rate, Rhythm, No Edema, No Gallop, No Murmur Gastrointestinal: Non Tender, Soft Results/Procedures Lab Laboratory Tests 03/20/22 17:13 03/21/22 04:30 Patient resulted labs reviewed. Assessment/Plan Assessment and Plan Assess & Plan/Chief Complaint 1. Severe sepsis responding to IV fluids and antibiotics likely due to underlying pneumonia possible postobstructive process from underlying malignancy continue IV fluids and antibiotics cultures pending.Mental status significantly improved today. Did discuss CODE STATUS patient reports she does not want to be placed on a ventilator if her respiratory status deteriorates. She does request however CPR. Will initiate change in regards to DO NOT INTUBATE request. 2. Right adnexal mass concerning for malignancy pneumonia has somewhat of an atypical appearance on CT scanning suggesting the possibility of underlying malignancy as well if the patient survives this hospital stay reattempt tissue diagnosis. 3. Diffuse vasculopathy currently not a candidate for any peripheral vascular work at this time overall prognosis extremely poor. Critical Care Critically Ill Patient ENZO MURRELL MD March 21, 2022 11:16
[2022-03-21] MEDS: NOREPINEPHRINE 8 MG/250 ML 250 ML IV SCH ×2 (17:06→17:10)
[2022-03-22] MEDS: VASOPRESSIN INJECTION 20 UNIT in NS (IVPB) 100 ML IV SCH ×3 (01:40→23:07)
[2022-03-22] MEDS: LACTATED RINGERS 1,000 ML IV SCH ×4 (01:45→23:02)
[2022-03-22] MEDS: HYDROcodone/APAP 5 MG/325 MG (LORTAB) TAB PO PRN ×2 (04:52→22:15)
[2022-03-22] MEDS: ENOXAPARIN 80 MG/0.8 ML (LOVENOX) SYR SC SCH (04:53)
[2022-03-22] MEDS: CEFEPIME INJECTION 1,000 MG in NS (IVPB) 50 ML IV SCH ×4 (04:53→23:05)
[2022-03-22] MEDS: inSUlin ASPART (NovoLOG) 1 UNIT/0.01 ML (CHARGE PER UNIT) SC SCH ×4 (05:07→20:33)
[2022-03-22 05:32] LABS: BASOPHILS % (AUTO) 0 % (0-10); EOSINOPHILS # (AUTO) 0.3 10^3/uL (0.0-0.3); EOSINOPHILS % (AUTO) 3 % (0-10); HEMATOCRIT 36 % (35-52); HEMOGLOBIN 11.9 g/dL (11.5-16.0); LYMPHOCYTES # (AUTO) 0.4 10^3/uL (1.0-4.0); LYMPHOCYTES % (AUTO) 4 % (12-44); MEAN CORPUSCULAR HEMOGLOBIN 30 pg (25-34); MEAN CORPUSCULAR HGB CONC 33 g/dL (32-36); MEAN CORPUSCULAR VOLUME 91 fL (80-99); MEAN PLATELET VOLUME 11.7 fL (9.0-12.2); MONOCYTES # (AUTO) 0.3 10^3/uL (0.0-1.0); MONOCYTES % (AUTO) 3 % (0-12); NEUTROPHILS % (AUTO) 90 % (42-75); PLATELET COUNT 203 10^3/uL (130-400)
[2022-03-22 05:50] LABS: ALBUMIN 2.3 GM/DL (3.2-4.5); BILIRUBIN,TOTAL 0.9 MG/DL (0.1-1.0); CALCIUM 8.9 MG/DL (8.5-10.1); CREATININE SERUM 0.83 MG/DL (0.60-1.30); MAGNESIUM 1.5 MG/DL (1.6-2.4); PHOSPHORUS 1.8 MG/DL (2.3-4.7); POTASSIUM 3.1 MMOL/L (3.6-5.0); TOTAL PROTEIN 5.6 GM/DL (6.4-8.2)
[2022-03-22] MEDS: metroNIDAZOLE 500MG/100ML IVPB 100 ML IV SCH ×2 (05:52→15:51)
[2022-03-22] MEDS: POTASSIUM CL 10MEQ/50ML IVPB 50 ML IV SCH (06:07)
[2022-03-22] MEDS: MAGNESIUM 1 GM/100 ML IVPB 100 ML IV SCH ×3 (06:30→10:13)
[2022-03-22] MEDS ORDERED: KCL 20 MEQ TAB (K-DUR) PO ONE (06:30)
[2022-03-22] MEDS: KCL 20 MEQ TAB (K-DUR) PO SCH ×2 (06:31→10:51)
[2022-03-22] MEDS: NOREPINEPHRINE 8 MG/250 ML 250 ML IV SCH ×2 (07:14→20:56)
[2022-03-22] MEDS ORDERED: KCL 20 MEQ TAB (K-DUR) PO NR (08:30)
[2022-03-22] MEDS: PANTOPRAZOLE 40 MG (PROTONIX) VIAL IV SCH (08:53)
[2022-03-22] MEDS ORDERED: METF-397 PO (09:52)
[2022-03-22] MEDS ORDERED: MTP25TSR PO (09:52)
[2022-03-22] MEDS ORDERED: CLOP75TA28 PO (09:52)
[2022-03-22] MEDS ORDERED: ATOR40TA70 PO (09:52)
[2022-03-22] MEDS ORDERED: ASPI1TAB23 PO (09:52)
[2022-03-22] MEDS ORDERED: GLIP5TAB13 PO (09:52)
[2022-03-22] MEDS ORDERED: DAPA10TA PO (09:52)
--- NOTE | 2022-03-22 10:11 | Cardiology Progress Note ---
Progress Note-Cardiology Events since last exam Date Seen by Provider: March 22, 2022 Time Seen by Provider: 10:10 Events since last exam We are following her due to severe three-vessel coronary artery disease and cardiomyopathy now with another small non-ST elevation myocardial infarction. She is being treated for pneumonia and sepsis. She still has a cough. She still feels slightly short of breath. She was having chest discomfort prior to admission but this has resolved. She denies palpitations, syncope, or ankle edema. Certain portions of this document may have been dictated utilizing voice recogni tion technology. Inherent to this technology, typographical and grammatical errors may exist. As much as I am diligent to identify and correct these mistakes, some errors may remain in the document. Vitals Last set of Vitals Signs Vital Signs 03/21/22 03/22/22 03/22/22 16:23 08:00 13:00 Temp 36.3 Pulse 99 FiO2 95 Labs Labs Laboratory Tests 03/22/22 05:00 Exam Vital Signs Vital Signs Date Time Temp Pulse Resp B/P (MAP) Pulse Ox O2 Delivery O2 Flow Rate FiO2 03/22/22 13:00 99 03/22/22 12:00 16 95/63 96 Nasal Cannula 6.00 03/22/22 08:00 95 03/21/22 16:23 36.3 Physical Exam General: Alert. No acute distress. She appears older than her stated age. Eye: No xanthelasma. HENT: Normocephalic. Neck: Jugular venous pressure does not appear elevated. Respiratory: Lungs have rhonchi in the left mid chest. Respirations are non- labored. Breath sounds are equal. Symmetrical chest wall expansion. Cardiovascular: Normal rate. Regular rhythm. No murmur. No gallop. No edema. Gastrointestinal: Soft. Normal bowel sounds. Skin: Warm. Dry. Neurologic: Alert and oriented to person, place, time. Cranial nerves 3-11 grossly intact. Psychiatric: Cooperative. Appropriate mood & affect. Labs Laboratory Tests Test 03/21/22 15:36 03/21/22 20:49 03/22/22 05:00 03/22/22 05:02 Range/Units Glucometer 103 85 70 70-110 MG/DL White Blood Count 10.0 4.3-11.0 10^3/uL Red Blood Count 3.94 3.80-5.11 10^6/uL Hemoglobin 11.9 11.5-16.0 g/dL Hematocrit 36 35-52 % Mean Corpuscular Volume 91 80-99 fL Mean Corpuscular Hemoglobin 30 25-34 pg Mean Corpuscular Hemoglobin Concent 33 32-36 g/dL Red Cell Distribution Width 15.9 H 10.0-14.5 % Platelet Count 203 130-400 10^3/uL Mean Platelet Volume 11.7 9.0-12.2 fL Immature Granulocyte % (Auto) 1 % Neutrophils (%) (Auto) 90 H 42-75 % Lymphocytes (%) (Auto) 4 L 12-44 % Monocytes (%) (Auto) 3 0-12 % Eosinophils (%) (Auto) 3 0-10 % Basophils (%) (Auto) 0 0-10 % Neutrophils # (Auto) 9.0 H 1.8-7.8 10^3/uL Lymphocytes # (Auto) 0.4 L 1.0-4.0 10^3/uL Monocytes # (Auto) 0.3 0.0-1.0 10^3/uL Eosinophils # (Auto) 0.3 0.0-0.3 10^3/uL Basophils # (Auto) 0.0 0.0-0.1 10^3/uL Immature Granulocyte # (Auto) 0.1 0.0-0.1 10^3/uL Sodium Level 140 135-145 MMOL/L Potassium Level 3.1 L 3.6-5.0 MMOL/L Chloride Level 109 H 98-107 MMOL/L Carbon Dioxide Level 16 L 21-32 MMOL/L Anion Gap 15 H 5-14 MMOL/L Blood Urea Nitrogen 25 H 7-18 MG/DL Creatinine 0.83 0.60-1.30 MG/DL Estimat Glomerular Filtration Rate 81 BUN/Creatinine Ratio 30 Glucose Level 66 L 70-105 MG/DL Calcium Level 8.9 8.5-10.1 MG/DL Corrected Calcium 10.3 H 8.5-10.1 MG/DL Phosphorus Level 1.8 L 2.3-4.7 MG/DL Magnesium Level 1.5 L 1.6-2.4 MG/DL Total Bilirubin 0.9 0.1-1.0 MG/DL Aspartate Amino Transf (AST/SGOT) 23 5-34 U/L Alanine Aminotransferase (ALT/SGPT) 31 0-55 U/L Alkaline Phosphatase 93 40-136 U/L Total Protein 5.6 L 6.4-8.2 GM/DL Albumin 2.3 L 3.2-4.5 GM/DL Triglycerides Level 56 <150 MG/DL Cholesterol Level 36 < 200 MG/DL LDL Cholesterol Direct 4 1-129 MG/DL VLDL Cholesterol 11 5-40 MG/DL HDL Cholesterol < 15 L 40-60 MG/DL Test 03/22/22 11:27 Range/Units Glucometer 128 H 70-110 MG/DL Diagnosis/Problems Diagnosis/Problems (1) Non-ST elevation myocardial infarction (NSTEMI), initial care episode Assessment & Plan: She appears to have suffered another non-ST elevation myocardial infarction. She has known severe three-vessel coronary artery disease. She had been seen by cardiothoracic surgery at [facility] and by report, they did not think she was a good surgical candid ate. She thought she had an appointment at [facility] but we were unable to locate any appointments for her at that facility. Once her sepsis improves, we will need to determine the next course of treatment for her coronary artery disease. I will resume her aspirin. I will hold off on giving her clopidogrel since she might need a biopsy of the pelvic mass. I have resumed her high-dose statin and her metoprolol. (2) Ischemic cardiomyopathy Status: Chronic Assessment & Plan: She has moderate left ventricular systolic dysfunction. Metoprolol succinate has been resumed. Once her blood pressures are improved, we can try to add an SHEILA inhibitor. (3) Chronic HFrEF (heart failure with reduced ejection fraction) Assessment & Plan: Although her BNP level was elevated, this was in the setting of sepsis and acute kidney injury. We will continue guideline directed medical therapy as tolerated by her renal function and blood pressure. (4) Peripheral arterial disease Status: Chronic Assessment & Plan: She most likely also has extensive peripheral vascular disease as noted on her previous cardiac catheterization. We will continue aspirin and high-dose statin medication. This will also need to be addressed once she recovers from the acute noncardiac illness. (5) Acute kidney injury Assessment & Plan: Her creatinine was elevated at the time of admission. This has now improved. This would not be a contraindication to treating her with SHEILA inhibitor or ARB. (6) Adnexal mass Status: Acute Assessment & Plan: We will continue to hold clopidogrel in the event she needs a biopsy of this mass. Aspirin should not be a contraindication to a biopsy. (7) Type 2 diabetes mellitus with complication Assessment & Plan: This is being managed by the hospitalist. (8) Cigarette smoker Status: Chronic Assessment & Plan: She needs to quit smoking. JACQUELYN OSORIO JR, MD March 22, 2022 10:11
[2022-03-22 10:14] LABS: CHOLESTEROL 36 MG/DL (< 200); HDL CHOLESTEROL < 15 MG/DL (40-60); TRIGLYCERIDES 56 MG/DL (<150); VLDL CHOLESTEROL 11 MG/DL (5-40)
[2022-03-22] MEDS ORDERED: ASPIRIN E.C. 81 MG (ECOTRIN) TAB PO NR (10:39)
--- NOTE | 2022-03-22 11:31 | Tele-ICU Progress Note ---
Subjective Date Seen by a Provider: March 22, 2022 Time Seen by a Provider: 11:31 Subjective/Events-last exam (Tele-ICU Physician , Progress Note ) Available chart/ vitals / labs / Images reviewed Video assessment done using teleICU camera, rest of exam as per RN Discussed with RN , EXAM PER RN Events overnight : Afebrile FiO2 - 6l I/O = += Drips: Pressors: levo , hemodynamically stable Consultants: barbie grace Hospital course: (03/19) 61/F admitted with severe sepsis possible source GI or pneumonia. //ivf and bolus for hypotension--Levo. A/P Sepsis, shock - weaning pressors , CPM PNA - cont abx NSTEMI./ CAD / ICM . CHF - as per cards - EF 35 to 40%, grade 2 diastolic dysfunction, mild mitral regurgitation.PA pressure around 20 mmHg MERCEDES - improved DM ii - ISS Diarrhea - resolved - U/UP negative Right adnexal mass 5x7 cm , multiple pulm nodulees, concerning for malignancy - w/up as per PCP Left subclavian artery stenosis PAD Lines : (Central Line Necessity Reviewed) Lang: OG: Nutrition: po Analgesia: Anxiety/ delirium VTE Prophylaxis: shantanu 40 Stress Ulcer Prophylaxis: po Plans in collaboration with bedside consultants and IM MDs. Discussed with RN to reach out if any questions or concerns A total of 32 minutes of critical care time was devoted to this patient today, required to treat and/or prevent further deterioration of critical care condition ( as above) . Sepsis Event Evaluation Height, Weight, BMI Height: '" Weight: 146lbs. oz. 66.340396pu; 21.55 BMI Method:Stated Focused Exam Lactate Level 03/20/22 02:57: Lactic Acid Level 1.30 03/20/22 17:13: Lactic Acid Level 3.99*H 03/20/22 19:10: Lactic Acid Level 1.95 Time of Focused Exam: 01:00 Exam Exam Patient acknowledged, consented, and participated in this virtual visit which was conducted using real time audio/video Vital Signs Date Time Temp Pulse Resp B/P (MAP) Pulse Ox O2 Delivery O2 Flow Rate FiO2 03/22/22 11:00 100 105/69 95 Nasal Cannula 6.00 03/22/22 10:00 101 94/73 94 Nasal Cannula 6.00 03/22/22 09:00 106 94/74 95 Nasal Cannula 6.00 03/22/22 08:00 106 99/74 93 Nasal Cannula 6.00 03/22/22 08:00 98 Nasal Cannula 4.00 95 03/22/22 07:20 High Flow N/C 5.00 03/22/22 07:14 107 98/72 03/22/22 07:00 106 03/22/22 07:00 105 98/72 95 Nasal Cannula 6.00 03/22/22 06:00 112 90/66 91 Nasal Cannula 6.00 03/22/22 05:15 112 20 97/74 91 Nasal Cannula 6.00 03/22/22 04:00 105 28 96/72 96 Nasal Cannula 6.00 03/22/22 04:00 98 Nasal Cannula 6.00 03/22/22 03:00 105 27 100/73 97 Nasal Cannula 6.00 03/22/22 02:00 105 26 103/75 95 Nasal Cannula 6.00 03/22/22 01:40 101 100/74 03/22/22 01:00 109 03/22/22 01:00 109 33 95/70 95 Nasal Cannula 6.00 03/22/22 00:30 111 23 90/68 96 Nasal Cannula 6.00 03/21/22 23:59 98 Nasal Cannula 6.00 03/21/22 23:00 112 30 91/67 94 Nasal Cannula 6.00 03/21/22 22:30 113 36 95/66 95 Nasal Cannula 6.00 03/21/22 21:00 112 33 89/58 94 Nasal Cannula 6.00 03/21/22 20:30 105 89/65 95 Nasal Cannula 6.00 03/21/22 20:00 98 Nasal Cannula 6.00 03/21/22 19:00 110 104/74 96 Nasal Cannula 6.00 03/21/22 19:00 110 03/21/22 18:00 101 33 95/72 98 Nasal Cannula 6.00 03/21/22 17:10 107 106/79 03/21/22 17:00 96 26 107/78 98 Nasal Cannula 6.00 03/21/22 16:23 36.3 03/21/22 16:00 95 24 108/77 98 Nasal Cannula 6.00 03/21/22 16:00 98 Nasal Cannula 6.00 03/21/22 15:00 93 27 94/72 98 Nasal Cannula 6.00 03/21/22 14:00 90 96/70 95 Nasal Cannula 6.00 03/21/22 13:00 94 03/21/22 13:00 93 81/59 96 Nasal Cannula 6.00 03/21/22 12:00 36.6 03/21/22 12:00 96 Nasal Cannula 6.00 03/21/22 12:00 98 36 96/73 93 Nasal Cannula 6.00 I & O 03/22/22 06:59 Intake Total 1900 ml Output Total 1425 ml Balance 475 ml Height & Weight Height: '" Weight: 146lbs. oz. 66.618916lp; 21.55 BMI Method:Stated General Appearance: No Apparent Distress, Chronically ill HEENT: PERRL/EOMI, Other (ORAL MUCOSA EXTREMELY DRY) Neck: Normal Inspection, Non Tender Respiratory: No Accessory Muscle Use, No Respiratory Distress, Other (Anterior chest is clear there is significant diminishment of breath sounds posteriorly with some scattered rales no wheezing noted) Cardiovascular: Regular Rate, Rhythm, No Edema, No Gallop, No Murmur Capillary Refill: Less Than 3 Seconds Gastrointestinal: non tender, soft Extremity: Normal Capillary Refill, No Pedal Edema Neurologic/Psychiatric: Alert, Oriented x3 (BUT VERY POOR MEMORY. ), No Motor/Sensory Deficits, aurist II-XII Norm as Tested, Other (LETHARGIC) Skin: Normal Color, Warm/Dry, Other (POOR TURGOR) Results Lab Laboratory Tests 03/20/22 17:13 03/21/22 04:30 03/22/22 05:00 Assessment/Plan Assessment/Plan ` WISAM HEWITT MD March 22, 2022 11:31
[2022-03-22] MEDS: guaiFENesin/DM (ROBITUSSIN DM) 10 ML UDC PO PRN (11:58)
--- NOTE | 2022-03-22 13:25 | Progress Note ---
Subjective Subjective/Events-last exam Pt states she is feeling okay, she is anxious to find out what is going on and somewhat tearful when discussing her adnexal mass and possible cancer concern. She is requiring high dose norepinephrine. Focused Exam Lactate Level 03/20/22 02:57: Lactic Acid Level 1.30 03/20/22 17:13: Lactic Acid Level 3.99*H 03/20/22 19:10: Lactic Acid Level 1.95 Time of Focused Exam: 01:00 Objective Exam Last Set of Vital Signs Vital Signs Date Time Temp Pulse Resp B/P (MAP) Pulse Ox O2 Delivery O2 Flow Rate FiO2 03/22/22 13:00 99 03/22/22 12:00 16 95/63 96 Nasal Cannula 6.00 03/22/22 08:00 95 03/21/22 16:23 36.3 Capillary Refill : Less Than 3 Seconds I&O Intake and Output 03/22/22 00:00 Intake Total 2250 ml Output Total 1050 ml Balance 1200 ml Intake Oral 1000 ml IV Total 1250 ml Output Urine Total 1050 ml General: Alert, Mild Distress Lungs: Normal Air Movement Heart: Other (tachycardic) Abdomen: Normal Bowel Sounds, Soft Extremities: No Edema Neuro: Normal Speech Results/Procedures Lab Laboratory Tests 03/21/22 15:36: Glucometer 103 03/21/22 20:49: Glucometer 85 03/22/22 05:00: White Blood Count 10.0, Red Blood Count 3.94, Hemoglobin 11.9, Hematocrit 36, Mean Corpuscular Volume 91, Mean Corpuscular Hemoglobin 30, Mean Corpuscular Hemoglobin Concent 33, Red Cell Distribution Width 15.9H, Platelet Count 203, Mean Platelet Volume 11.7, Immature Granulocyte % (Auto) 1, Neutrophils (%) (Auto) 90H, Lymphocytes (%) (Auto) 4L, Monocytes (%) (Auto) 3, Eosinophils (%) (Auto) 3, Basophils (%) (Auto) 0, Neutrophils # (Auto) 9.0H, Lymphocytes # (Auto) 0.4L, Monocytes # (Auto) 0.3, Eosinophils # (Auto) 0.3, Basophils # (Auto) 0.0, Immature Granulocyte # (Auto) 0.1, Sodium Level 140, Potassium Level 3.1L, Chloride Level 109H, Carbon Dioxide Level 16L, Anion Gap 15H, Blood Urea Nitrogen 25H, Creatinine 0.83, Estimat Glomerular Filtration Rate 81, BUN/Creatinine Ratio 30, Glucose Level 66L, Calcium Level 8.9, Corrected Calcium 10.3H, Phosphorus Level 1.8L, Magnesium Level 1.5L, Total Bilirubin 0.9, Aspar miller Amino Transf (AST/SGOT) 23, Alanine Aminotransferase (ALT/SGPT) 31, Alkaline Phosphatase 93, Total Protein 5.6L, Albumin 2.3L, Triglycerides Level 56, Cholesterol Level 36, LDL Cholesterol Direct 4, VLDL Cholesterol 11, HDL Cholesterol < 15L 03/22/22 05:02: Glucometer 70 03/22/22 11:27: Glucometer 128H Microbiology 03/20/22 Blood Culture - Preliminary, Resulted No growth 03/20/22 MRSA Screen - Final, Complete MRSA not isolated 03/20/22 Urine Culture - Final, Complete NO GROWTH 03/20/22 Fecal Leukocyte Stain - Final, Complete 03/20/22 C. difficile GDH Antigen & Toxins - Final, Complete 03/20/22 Stool Culture - Final, Complete Assessment/Plan Assessment/Plan (1) Septic shock Status: Acute Assessment & Plan: Uncertain etiology, initially with diarrhea and fever. C diff neg. Urine culture no growth. Blood cultures no growth to date. Possible pneumonia, but CT chest has had similar findings for chronic time period. Continue cefepime and metronidazole. Norepinephrine and LR. Appreciate Tsering ICU assistance. (2) Pneumonia Status: Acute Assessment & Plan: Bilateral multifocal, concerning for possible underlying malignancy, particularly as findings are not new and she has been on more than one course of antibiotics. Continue cefepime for now. Qualifiers: (3) Adnexal mass Status: Acute Assessment & Plan: Was scheduled for biopsy outpatient, but was unable to be done due to blood thinners, holding currently, but given severity of current illness, not likely able to get done currently. Discussed difficulty in prognostic planning without biopsy. (4) CAD (coronary artery disease) Status: Chronic (5) NSTEMI (non-ST elevated myocardial infarction) Status: Acute Assessment & Plan: Mild troponin elevation, appreciate Cardiology recommendations. Known severe CAD and multiple other vascular occlusions, was referred for CABG but had possible stroke and was deferred, has outpatient appt with Dr. Damon. Holding antiplatelets due to need for adnexal mass biopsy. (6) Cardiomyopathy Status: Chronic Qualifiers: Qualified Codes: I25.5 - Ischemic cardiomyopathy (7) Tobacco abuse Status: Chronic (8) HLD (hyperlipidemia) Status: Chronic (9) T2DM (type 2 diabetes mellitus) Status: Chronic Assessment & Plan: Sliding scale insulin protocol Qualifiers: Qualified Codes: E11.69 - Type 2 diabetes mellitus with other specified complication (10) HFrEF (heart failure with reduced ejection fraction) Status: Chronic Assessment & Plan: EF 30-35% 03/20/22. Appreciate Cardiology recommendations. (11) Lactic acidosis Status: Resolved (12) Peripheral arterial disease Status: Chronic (13) Acute renal failure Status: Resolved (14) Carotid artery disease Status: Chronic (15) DVT prophylaxis Status: Acute Assessment & Plan: Enoxaparin MATTHEW WEATHERS MD March 22, 2022 13:25
[2022-03-23] MEDS: guaiFENesin/DM (ROBITUSSIN DM) 10 ML UDC PO PRN (01:38)
[2022-03-23] MEDS: metroNIDAZOLE 500MG/100ML IVPB 100 ML IV SCH (03:13)
[2022-03-23 04:59] LABS: BASOPHILS # (AUTO) 0.1 10^3/uL (0.0-0.1); BASOPHILS % (AUTO) 1 % (0-10); EOSINOPHILS # (AUTO) 0.2 10^3/uL (0.0-0.3); EOSINOPHILS % (AUTO) 4 % (0-10); HEMATOCRIT 33 % (35-52); HEMOGLOBIN 10.9 g/dL (11.5-16.0); LYMPHOCYTES # (AUTO) 0.4 10^3/uL (1.0-4.0); LYMPHOCYTES % (AUTO) 7 % (12-44); MEAN CORPUSCULAR HEMOGLOBIN 31 pg (25-34); MEAN CORPUSCULAR HGB CONC 34 g/dL (32-36); MEAN CORPUSCULAR VOLUME 92 fL (80-99); MEAN PLATELET VOLUME 10.7 fL (9.0-12.2); MONOCYTES # (AUTO) 0.5 10^3/uL (0.0-1.0); MONOCYTES % (AUTO) 8 % (0-12); NEUTROPHILS # (AUTO) 5.1 10^3/uL (1.8-7.8); NEUTROPHILS % (AUTO) 80 % (42-75); PLATELET COUNT 174 10^3/uL (130-400); WHITE BLOOD COUNT 6.4 10^3/uL (4.3-11.0)
[2022-03-23] MEDS: inSUlin ASPART (NovoLOG) 1 UNIT/0.01 ML (CHARGE PER UNIT) SC SCH ×4 (05:03→22:59)
[2022-03-23 05:07] LABS: ALBUMIN 1.8 GM/DL (3.2-4.5)
[2022-03-23 05:08] LABS: POTASSIUM 3.8 MMOL/L (3.6-5.0)
[2022-03-23 05:09] LABS: CALCIUM 8.9 MG/DL (8.5-10.1)
[2022-03-23 05:10] LABS: TOTAL PROTEIN 4.8 GM/DL (6.4-8.2)
[2022-03-23 05:12] LABS: BILIRUBIN,TOTAL 0.9 MG/DL (0.1-1.0)
[2022-03-23 05:13] LABS: PHOSPHORUS 1.6 MG/DL (2.3-4.7)
[2022-03-23 05:14] LABS: CREATININE SERUM 0.65 MG/DL (0.60-1.30)
[2022-03-23 05:17] LABS: MAGNESIUM 1.5 MG/DL (1.6-2.4)
[2022-03-23] MEDS: POTASSIUM CL 10MEQ/50ML IVPB 50 ML IV SCH (05:23)
[2022-03-23] MEDS: KCL 20 MEQ TAB (K-DUR) PO SCH (05:23)
[2022-03-23] MEDS: ENOXAPARIN 40 MG/0.4 ML (LOVENOX) SYR SC SCH (05:28)
[2022-03-23] MEDS: CEFEPIME INJECTION 1,000 MG in NS (IVPB) 50 ML IV SCH ×3 (05:29→18:26)
[2022-03-23] MEDS: MAGNESIUM 1 GM/100 ML IVPB 100 ML IV SCH ×2 (06:05→07:34)
[2022-03-23] MEDS: LACTATED RINGERS 1,000 ML IV SCH ×3 (06:39→18:27)
[2022-03-23] MEDS ORDERED: MAGNESIUM 1 GM/100 ML IVPB 100 ML IV ONE (07:00)
[2022-03-23] MEDS ORDERED: SODIUM PHOSPHATE INJ 15 MM in D5W 100 ML IVPB 100 ML IV ONE (07:00)
--- NOTE | 2022-03-23 08:15 | Cardiology Progress Note ---
Progress Note-Cardiology Events since last exam Date Seen by Provider: March 23, 2022 Time Seen by Provider: 08:13 Events since last exam I am following her due to non-ST elevation myocardial infarction and cardiom yopathy. She remains in the intensive care unit on intravenous norepinephrine. The nurses are weaning this down. Her cough and breathing are better. She denies chest pain, palpitations, syncope, or ankle edema. Certain portions of this document may have been dictated utilizing voice recognition technology. Inherent to this technology, typographical and grammatical errors may exist. As much as I am diligent to identify and correct these mistakes, some errors may remain in the document. Vitals Last set of Vitals Signs Vital Signs 03/22/22 03/23/22 03/23/22 08:00 06:00 08:00 Temp 36.1 Pulse 81 Resp 19 B/P (MAP) 89/60 Pulse Ox 99 O2 Delivery Nasal Cannula O2 Flow Rate 6.00 FiO2 95 Labs Labs Laboratory Tests 03/23/22 04:55 Exam Vital Signs Vital Signs Date Time Temp Pulse Resp B/P (MAP) Pulse Ox O2 Delivery O2 Flow Rate FiO2 03/23/22 08:00 36.1 03/23/22 06:00 81 19 89/60 99 Nasal Cannula 6.00 03/22/22 08:00 95 Physical Exam General: Alert. No acute distress. Appears older than stated age. Eye: No xanthelasma. HENT: Normocephalic. Neck: Jugular venous pressure does not appear elevated. Respiratory: Lungs have minimal scattered inspiratory wheezes. Respirations are non-labored. Breath sounds are equal. Symmetrical chest wall expansion. Cardiovascular: Normal rate. Regular rhythm. No murmur. No gallop. No edema. Gastrointestinal: Soft. Normal bowel sounds. Skin: Warm. Dry. Neurologic: Alert and oriented to person, place, time. Cranial nerves 3-11 grossly intact. Psychiatric: Cooperative. Appropriate mood & affect. Labs Laboratory Tests Test 03/22/22 11:27 03/22/22 15:56 03/22/22 20:32 03/23/22 04:51 Range/Units Glucometer 128 H 103 99 158 H 70-110 MG/DL Test 03/23/22 04:55 Range/Units White Blood Count 6.4 4.3-11.0 10^3/uL Red Blood Count 3.55 L 3.80-5.11 10^6/uL Hemoglobin 10.9 L 11.5-16.0 g/dL Hematocrit 33 L 35-52 % Mean Corpuscular Volume 92 80-99 fL Mean Corpuscular Hemoglobin 31 25-34 pg Mean Corpuscular Hemoglobin Concent 34 32-36 g/dL Red Cell Distribution Width 16.1 H 10.0-14.5 % Platelet Count 174 130-400 10^3/uL Mean Platelet Volume 10.7 9.0-12.2 fL Immature Granulocyte % (Auto) 1 % Neutrophils (%) (Auto) 80 H 42-75 % Lymphocytes (%) (Auto) 7 L 12-44 % Monocytes (%) (Auto) 8 0-12 % Eosinophils (%) (Auto) 4 0-10 % Basophils (%) (Auto) 1 0-10 % Neutrophils # (Auto) 5.1 1.8-7.8 10^3/uL Lymphocytes # (Auto) 0.4 L 1.0-4.0 10^3/uL Monocytes # (Auto) 0.5 0.0-1.0 10^3/uL Eosinophils # (Auto) 0.2 0.0-0.3 10^3/uL Basophils # (Auto) 0.1 0.0-0.1 10^3/uL Immature Granulocyte # (Auto) 0.1 0.0-0.1 10^3/uL Sodium Level 138 135-145 MMOL/L Potassium Level 3.8 3.6-5.0 MMOL/L Chloride Level 110 H 98-107 MMOL/L Carbon Dioxide Level 17 L 21-32 MMOL/L Anion Gap 11 5-14 MMOL/L Blood Urea Nitrogen 19 H 7-18 MG/DL Creatinine 0.65 0.60-1.30 MG/DL Estimat Glomerular Filtration Rate 101 BUN/Creatinine Ratio 29 Glucose Level 143 H 70-105 MG/DL Calcium Level 8.9 8.5-10.1 MG/DL Corrected Calcium 10.7 H 8.5-10.1 MG/DL Phosphorus Level 1.6 L 2.3-4.7 MG/DL Magnesium Level 1.5 L 1.6-2.4 MG/DL Total Bilirubin 0.9 0.1-1.0 MG/DL Aspartate Amino Transf (AST/SGOT) 23 5-34 U/L Alanine Aminotransferase (ALT/SGPT) 22 0-55 U/L Alkaline Phosphatase 110 40-136 U/L Total Protein 4.8 L 6.4-8.2 GM/DL Albumin 1.8 L 3.2-4.5 GM/DL Diagnosis/Problems Diagnosis/Problems (1) Non-ST elevation myocardial infarction (NSTEMI), initial care episode Assessment & Plan: She appears to have suffered another non-ST elevation myocardial infarction. She has known severe three-vessel coronary artery disease. She had been seen by cardiothoracic surgery at [facility] and by report, they did not think she was a good surgical candidate. The plan was for high risk percutaneous coronary intervention but then the patient left AGAINST MEDICAL ADVICE before this could be performed. She thought she had an appointment at [facility] but we were unable to locate any appointments for her at that facility. Once her sepsis improves, we will need to determine the next course of treatment for her coronary artery disease. I have resumed her aspirin. I will hold off on giving her clopidogrel since she might need a biopsy of the pelvic mass. I have also resumed her high- dose statin and her metoprolol. The metoprolol is on hold until she is weaned from vasopressors. (2) Ischemic cardiomyopathy Status: Chronic Assessment & Plan: She has moderate left ventricular systolic dysfunction. Metoprolol succinate has been resumed but as above, is on hold until she is off vasopressors. Once her blood pressures are improved, we can try to add an SHEILA inhibitor. (3) Chronic HFrEF (heart failure with reduced ejection fraction) Assessment & Plan: Although her BNP level was elevated, this was in the setting of sepsis and acute kidney injury. We will continue guideline directed medical therapy as tolerated by her renal function and blood pressure. (4) Peripheral arterial disease Status: Chronic Assessment & Plan: She most likely also has extensive peripheral vascular disease as noted on her previous cardiac catheterization. We will continue aspirin and high-dose statin medication. This will also need to be addressed once she recovers from the acute noncardiac illness. (5) Septic shock Status: Acute Assessment & Plan: She continues to wean off norepinephrine. She is receiving antibiotics. (6) Acute kidney injury Assessment & Plan: Her creatinine was elevated at the time of admission. This has now improved. This would not be a contraindication to treating her with SHEILA inhibitor or ARB. (7) Adnexal mass Status: Acute Assessment & Plan: We will continue to hold clopidogrel in the event she needs a biopsy of this mass. Aspirin should not be a contraindication to a biopsy. (8) Type 2 diabetes mellitus with complication Assessment & Plan: This is being managed by the hospitalist. (9) Cigarette smoker Status: Chronic Assessment & Plan: She needs to quit smoking. JACQUELYN OSORIO JR, MD March 23, 2022 08:15
[2022-03-23] MEDS: ASPIRIN E.C. 81 MG (ECOTRIN) TAB PO SCH (08:54)
[2022-03-23] MEDS: PANTOPRAZOLE 40 MG (PROTONIX) VIAL IV SCH (08:54)
[2022-03-23] MEDS ORDERED: CLOPIDOGREL 75 MG (PLAVIX) TABLET PO SCH (09:00)
[2022-03-23] MEDS: VASOPRESSIN INJECTION 20 UNIT in NS (IVPB) 100 ML IV SCH ×2 (10:37→23:00)
--- NOTE | 2022-03-23 10:53 | Tele-ICU Progress Note ---
Subjective Date Seen by a Provider: March 23, 2022 Time Seen by a Provider: 10:53 Subjective/Events-last exam (Tele-ICU Physician , Progress Note ) Available chart/ vitals / labs / Images reviewed Video assessment done using teleICU camera, rest of exam as per RN Discussed with RN , EXAM PER RN Events overnight : Afebrile FiO2 - 6l I/O = += Drips: Pressors: levo Consultants: barbie grace Hospital course: (03/19) 61/F admitted with severe sepsis possible source GI or pneumonia. //ivf and bolus for hypotension--Levo. A/P Sepsis, shock - weaning pressors , CPM - check CVP , transfuse albumin ( as fluid resuscitation - alb 1.8 PNA - cont abx NSTEMI./ CAD / ICM . CHF - as per cards - EF 35 to 40%, grade 2 diastolic dysfunction, mild mitral regurgitation.PA pressure around 20 mmHg MERCEDES - improved - resolved DM ii - ISS Diarrhea - resolved - U/UP negative Right adnexal mass 5x7 cm , multiple pulm nodulees, concerning for malignancy - w/up as per PCP Left subclavian artery stenosis PAD Lines : r IJ 03/21(Central Line Necessity Reviewed) Lang: OG: Nutrition: po Analgesia: Anxiety/ delirium VTE Prophylaxis: shantanu 40 Stress Ulcer Prophylaxis: po Plans in collaboration with bedside consultants and IM MDs. Discussed with RN to reach out if any questions or concerns A total of 32 minutes of critical care time was devoted to this patient today, required to treat and/or prevent further deterioration of critical care condition ( as above) . Sepsis Event Evaluation Height, Weight, BMI Height: '" Weight: 146lbs. oz. 66.434420rv; 21.55 BMI Method:Stated Focused Exam Lactate Level 03/20/22 17:13: Lactic Acid Level 3.99*H 03/20/22 19:10: Lactic Acid Level 1.95 Time of Focused Exam: 01:00 Exam Exam Patient acknowledged, consented, and participated in this virtual visit which was conducted using real time audio/video Vital Signs Date Time Temp Pulse Resp B/P (MAP) Pulse Ox O2 Delivery O2 Flow Rate FiO2 03/23/22 09:00 89 29 97/57 97 Nasal Cannula 6.00 03/23/22 08:00 36.1 03/23/22 08:00 82 23 83/58 98 Nasal Cannula 6.00 03/23/22 08:00 97 Nasal Cannula 5.00 03/23/22 08:00 84 03/23/22 07:00 79 22 91/64 98 Nasal Cannula 6.00 03/23/22 06:00 81 19 89/60 99 Nasal Cannula 6.00 03/23/22 05:00 83 20 101/67 100 Nasal Cannula 6.00 03/23/22 04:00 84 24 104/69 100 Nasal Cannula 6.00 03/23/22 04:00 97 Nasal Cannula 5.00 03/23/22 03:44 36.9 03/23/22 03:00 84 22 104/69 98 Nasal Cannula 6.00 03/23/22 02:00 86 18 94/70 99 Nasal Cannula 6.00 03/23/22 01:00 86 03/23/22 01:00 86 27 100/64 97 Nasal Cannula 6.00 03/23/22 00:00 93 30 94/65 96 Nasal Cannula 6.00 03/22/22 23:59 97 Nasal Cannula 5.00 03/22/22 23:36 190 03/22/22 23:28 36.4 03/22/22 23:07 97 91/65 03/22/22 23:00 102 91/65 96 Nasal Cannula 6.00 03/22/22 22:00 103 91/67 98 Nasal Cannula 6.00 03/22/22 21:15 102 38 91/67 95 Nasal Cannula 6.00 03/22/22 20:56 106 81/59 03/22/22 20:13 110 22 90/71 92 Nasal Cannula 6.00 03/22/22 20:00 97 Nasal Cannula 5.00 03/22/22 19:46 38.2 03/22/22 19:26 38.2 03/22/22 19:01 104 20 95/73 96 Nasal Cannula 6.00 03/22/22 19:00 101 03/22/22 18:00 105 28 92/69 97 Nasal Cannula 6.00 03/22/22 17:00 101 38 101/68 97 Nasal Cannula 6.00 03/22/22 16:00 103 37 92/66 96 Nasal Cannula 6.00 03/22/22 16:00 97 Nasal Cannula 5.00 03/22/22 15:00 103 39 100/66 Nasal Cannula 6.00 03/22/22 14:00 103 102/76 Nasal Cannula 6.00 03/22/22 13:00 100 33 96/68 100 Nasal Cannula 6.00 03/22/22 13:00 99 03/22/22 12:00 101 16 95/63 96 Nasal Cannula 6.00 03/22/22 12:00 98 Nasal Cannula 5.00 03/22/22 11:00 100 105/69 95 Nasal Cannula 6.00 I & O 03/23/22 06:59 Intake Total 3710 ml Output Total 2450 ml Balance 1260 ml Height & Weight Height: '" Weight: 146lbs. oz. 66.427758hl; 21.55 BMI Method:Stated General Appearance: No Apparent Distress, Chronically ill HEENT: PERRL/EOMI, Other (ORAL MUCOSA EXTREMELY DRY) Neck: Normal Inspection, Non Tender Respiratory: No Accessory Muscle Use, No Respiratory Distress, Other (Anterior chest is clear there is significant diminishment of breath sounds posteriorly with some scattered rales no wheezing noted) Cardiovascular: Regular Rate, Rhythm, No Edema, No Gallop, No Murmur Capillary Refill: Less Than 3 Seconds Gastrointestinal: non tender, soft Extremity: Normal Capillary Refill, No Pedal Edema Neurologic/Psychiatric: Alert, Oriented x3 (BUT VERY POOR MEMORY. ), No Motor/Sensory Deficits, medical assistant supervisor II-XII Norm as Tested, Other (LETHARGIC) Skin: Normal Color, Warm/Dry, Other (POOR TURGOR) Results Lab Laboratory Tests 03/22/22 05:00 03/23/22 04:55 Assessment/Plan Assessment/Plan ` WISAM HEWITT MD March 23, 2022 10:53
--- NOTE | 2022-03-23 11:11 | Progress Note ---
Subjective Subjective/Events-last exam Pt states she is feeling okay, denies concerns. Able to titrate down her norepinephrine, but unable to stop yet. Focused Exam Lactate Level 03/20/22 17:13: Lactic Acid Level 3.99*H 03/20/22 19:10: Lactic Acid Level 1.95 Time of Focused Exam: 01:00 Objective Exam Last Set of Vital Signs Vital Signs Date Time Temp Pulse Resp B/P (MAP) Pulse Ox O2 Delivery O2 Flow Rate FiO2 03/23/22 09:00 89 29 97/57 97 Nasal Cannula 6.00 03/23/22 08:00 36.1 03/22/22 08:00 95 Capillary Refill : Less Than 3 Seconds I&O Intake and Output0 03/23/22 00:00 Intake Total 3650 ml Output Total 2450 ml Balance 1200 ml Intake Oral 1100 ml IV Total 2550 ml Output Urine Total 2450 ml General: Alert, No Acute Distress Lungs: Normal Air Movement Heart: Regular Rate, No Murmurs Abdomen: Normal Bowel Sounds, Soft, No Tenderness Extremities: Other (trace edema) Neuro: Normal Speech Psych/Mental Status: Mood NL Results/Procedures Lab Laboratory Tests 03/22/22 11:27: Glucometer 128H 03/22/22 15:56: Glucometer 103 03/22/22 20:32: Glucometer 99 03/23/22 04:51: Glucometer 158H 03/23/22 04:55: White Blood Count 6.4, Red Blood Count 3.55L, Hemoglobin 10.9L, Hematocrit 33L, Mean Corpuscular Volume 92, Mean Corpuscular Hemoglobin 31, Mean Corpuscular Hemoglobin Concent 34, Red Cell Distribution Width 16.1H, Platelet Count 174, Mean Platelet Volume 10.7, Immature Granulocyte % (Auto) 1, Neutrophils (%) (Auto) 80H, Lymphocytes (%) (Auto) 7L, Monocytes (%) (Auto) 8, Eosinophils (%) (Auto) 4, Basophils (%) (Auto) 1, Neutrophils # (Auto) 5.1, Lymphocytes # (Auto) 0.4L, Monocytes # (Auto) 0.5, Eosinophils # (Auto) 0.2, Basophils # (Auto) 0.1, Immature Granulocyte # (Auto) 0.1, Sodium Level 138, Potassium Level 3.8, Chloride Level 110H, Carbon Dioxide Level 17L, Anion Gap 11, Blood Urea Nitrogen 19H, Creatinine 0.65, Estimat Glomerular Filtration Rate 101, BUN/Creatinine Ratio 29, Glucose Level 143H, Calcium Level 8.9, Corrected Calcium 10.7H, Phosphorus Level 1.6L, Magnesium Level 1.5L, Total Bilirubin 0.9, Aspartate Amino Transf (AST/SGOT) 23, Alanine Aminotransferase (ALT/SGPT) 22, Alkaline Phosphatase 110, Total Protein 4.8L, Albumin 1.8L 03/23/22 10:04: Glucometer 153H Microbiology 03/20/22 Blood Culture - Preliminary, Resulted No growth 03/20/22 MRSA Screen - Final, Complete MRSA not isolated 03/20/22 Urine Culture - Final, Complete NO GROWTH 03/20/22 Fecal Leukocyte Stain - Final, Complete 03/20/22 C. difficile GDH Antigen & Toxins - Final, Complete 03/20/22 Stool Culture - Final, Complete Assessment/Plan Assessment/Plan (1) Septic shock Status: Acute Assessment & Plan: Uncertain etiology, initially with diarrhea and fever. C diff neg. Urine culture no growth. Blood cultures no growth to date. Possible pneumonia, but CT chest has had similar findings for chronic time period. Continue cefepime. Norepinephrine and LR. Appreciate Tsering ICU assistance. (2) Pneumonia Status: Acute Assessment & Plan: Bilateral multifocal, concerning for possible underlying malignancy, particularly as findings are not new and she has been on more than one course of antibiotics. Continue cefepime for now. Qualifiers: (3) Adnexal mass Status: Acute Assessment & Plan: Was scheduled for biopsy outpatient, but was unable to be done due to blood thinners, holding currently, but given severity of current illness, not likely able to get done currently. Discussed difficulty in prognostic planning without biopsy. (4) CAD (coronary artery disease) Status: Chronic Assessment & Plan: Severe multivessel disease both coronary and peripheral, holding antiplatelets in hopes of biopsy shortly. (5) NSTEMI (non-ST elevated myocardial infarction) Status: Acute Assessment & Plan: Mild troponin elevation, appreciate Cardiology recommendations. Known severe CAD and multiple other vascular occlusions, was referred for CABG but had possible stroke and was deferred, has outpatient appt with Dr. Damon. Holding antiplatelets due to need for adnexal mass biopsy. (6) Cardiomyopathy Status: Chronic Qualifiers: Qualified Codes: I25.5 - Ischemic cardiomyopathy (7) Tobacco abuse Status: Chronic (8) HLD (hyperlipidemia) Status: Chronic (9) T2DM (type 2 diabetes mellitus) Status: Chronic Assessment & Plan: Sliding scale insulin protocol Qualifiers: Qualified Codes: E11.69 - Type 2 diabetes mellitus with other specified complication (10) HFrEF (heart failure with reduced ejection fraction) Status: Chronic Assessment & Plan: EF 30-35% 03/20/22. Appreciate Cardiology recommendations. (11) Lactic acidosis Status: Resolved (12) Peripheral arterial disease Status: Chronic (13) Acute renal failure Status: Resolved (14) Carotid artery disease Status: Chronic (15) DVT prophylaxis Status: Acute Assessment & Plan: Enoxaparin MATTHEW WEATHERS MD March 23, 2022 11:11
[2022-03-23] MEDS ORDERED: ALBUMIN 25% 25 GM/100 ML 50 ML IV SCH (12:00)
[2022-03-23] MEDS ORDERED: ALBUMIN 25% 25 GM/100 ML 50 ML IV ONE (14:30)
[2022-03-23 15:05] LABS: ABG BASE EXCESS -2.9 MMOL/L (-2.5-2.5); ABG OXYGEN SATURATION 70 % (94-100); ABG PCO2 37 MMHG (35-45); ABG PH 7.38 (7.37-7.43); ABG PO2 41 MMHG (79-93); ABG TCO2 22.5 MMOL/L (21.0-31.0)
[2022-03-23 15:09] LABS: INSPIRED O2 5; VENTILATOR NO
[2022-03-23] MEDS: HYDROcodone/APAP 5 MG/325 MG (LORTAB) TAB PO PRN (18:57)
[2022-03-23 20:06] VITALS: BP 97/57
[2022-03-23] MEDS ORDERED: RT-ALBUTEROL/IPRATROPIUM 3 ML (DUONEB) VIAL INH PRN (20:30)
--- NOTE | 2022-03-23 20:32 | Diagnostic Imaging Report ---
EXAMINATION: Chest 1 view HISTORY: Tachypnea COMPARISON: 03/21/2022 FINDINGS: Heart size and pulmonary vasculature are normal. Increasing perihilar and bibasilar opacities. Left-sided pleural effusion is present. No pneumothorax. The osseous structures are intact. Right IJ central line is present. IMPRESSION: 1. Increasing perihilar and bibasilar opacities with stable left pleural effusion. Dictated by: Dictated on workstation # [id number]
[2022-03-23] MEDS ORDERED: RT-ALBUTEROL/IPRATROPIUM 3 ML (DUONEB) VIAL ONE (21:25)
[2022-03-23] MEDS: RT-ALBUTEROL/IPRATROPIUM 3 ML (DUONEB) VIAL INH SCH (21:31)
[2022-03-24] MEDS: CEFEPIME INJECTION 1,000 MG in NS (IVPB) 50 ML IV SCH ×5 (00:54→23:18)
[2022-03-24] MEDS: RT-ALBUTEROL/IPRATROPIUM 3 ML (DUONEB) VIAL INH SCH ×6 (01:44→21:57)
[2022-03-24] MEDS: HYDROcodone/APAP 5 MG/325 MG (LORTAB) TAB PO PRN (03:16)
[2022-03-24 06:05] LABS: BASOPHILS % (AUTO) 0 % (0-10); EOSINOPHILS # (AUTO) 0.2 10^3/uL (0.0-0.3); EOSINOPHILS % (AUTO) 4 % (0-10); HEMATOCRIT 29 % (35-52); HEMOGLOBIN 9.7 g/dL (11.5-16.0); LYMPHOCYTES # (AUTO) 0.5 10^3/uL (1.0-4.0); LYMPHOCYTES % (AUTO) 10 % (12-44); MEAN CORPUSCULAR HEMOGLOBIN 31 pg (25-34); MEAN CORPUSCULAR HGB CONC 33 g/dL (32-36); MEAN CORPUSCULAR VOLUME 91 fL (80-99); MEAN PLATELET VOLUME 10.6 fL (9.0-12.2); MONOCYTES # (AUTO) 0.4 10^3/uL (0.0-1.0); MONOCYTES % (AUTO) 8 % (0-12); NEUTROPHILS # (AUTO) 3.8 10^3/uL (1.8-7.8); NEUTROPHILS % (AUTO) 76 % (42-75); PLATELET COUNT 151 10^3/uL (130-400)
[2022-03-24] MEDS: ENOXAPARIN 40 MG/0.4 ML (LOVENOX) SYR SC SCH (06:07)
[2022-03-24] MEDS: LACTATED RINGERS 1,000 ML IV SCH (06:08)
[2022-03-24] MEDS: KCL 20 MEQ TAB (K-DUR) PO SCH (06:08)
[2022-03-24] MEDS: POTASSIUM CL 10MEQ/50ML IVPB 50 ML IV SCH (06:08)
[2022-03-24] MEDS: MAGNESIUM 1 GM/100 ML IVPB 100 ML IV SCH ×4 (06:08→08:06)
[2022-03-24 06:27] LABS: POTASSIUM 3.4 MMOL/L (3.6-5.0)
[2022-03-24 06:28] LABS: CALCIUM 8.8 MG/DL (8.5-10.1)
[2022-03-24 06:30] LABS: TOTAL PROTEIN 4.6 GM/DL (6.4-8.2)
[2022-03-24 06:31] LABS: BILIRUBIN,TOTAL 0.7 MG/DL (0.1-1.0)
[2022-03-24 06:33] LABS: PHOSPHORUS 2.3 MG/DL (2.3-4.7)
[2022-03-24 06:34] LABS: CREATININE SERUM 0.61 MG/DL (0.60-1.30)
[2022-03-24 06:36] LABS: MAGNESIUM 1.4 MG/DL (1.6-2.4)
[2022-03-24] MEDS: inSUlin ASPART (NovoLOG) 1 UNIT/0.01 ML (CHARGE PER UNIT) SC SCH ×4 (06:40→20:07)
[2022-03-24] MEDS ORDERED: FUROSEMIDE 40 MG/4 ML INJ (LASIX) IVP NR (07:18)
[2022-03-24 07:21] VITALS: BP 110/61
[2022-03-24] MEDS: NOREPINEPHRINE 8 MG/250 ML 250 ML IV SCH (07:50)
[2022-03-24] MEDS ORDERED: KCL 20 MEQ TAB (K-DUR) PO ONE (08:00)
[2022-03-24] MEDS: ASPIRIN E.C. 81 MG (ECOTRIN) TAB PO SCH (08:05)
[2022-03-24] MEDS: PANTOPRAZOLE 40 MG (PROTONIX) VIAL IV SCH (08:05)
[2022-03-24] MEDS: VASOPRESSIN INJECTION 20 UNIT in NS (IVPB) 100 ML IV SCH ×2 (08:13→19:33)
--- NOTE | 2022-03-24 09:53 | Tele-ICU Progress Note ---
Subjective Date Seen by a Provider: March 24, 2022 Time Seen by a Provider: 09:49 Subjective/Events-last exam (Tele-ICU Physician , Progress Note ) Available chart/ vitals / labs / Images reviewed Video assessment done using teleICU camera, rest of exam as per RN Discussed with RN , EXAM PER RN Events overnight : Afebrile FiO2 - 6l I/O = += Drips: Pressors: levo Consultants: barbie grace Hospital course: (03/19) 61/F admitted with severe sepsis possible source GI or pneumonia. //ivf and bolus for hypotension--Levo. A/P Sepsis, shock - weaning pressors, - levo on/off today , check costisol - follow CVP , transfuse albumin ( as fluid resuscitation - alb 2.0 Acute resp failure 03/24 - was on BIPAP last night - now on NC after lasix x1 PNA - cont abx NSTEMI./ CAD / ICM . CHF - as per cards - EF 35 to 40%, grade 2 diastolic dysfunction, mild mitral regurgitation.PA pressure around 20 mmHg MERCEDES - improved - resolved DM ii - ISS Diarrhea - resolved - U/UP negative Right adnexal mass 5x7 cm , multiple pulm nodulees, concerning for malignancy - w/up as per PCP Left subclavian artery stenosis PAD Lines : r IJ 03/21(Central Line Necessity Reviewed) Lang: OG: Nutrition: po Analgesia: Anxiety/ delirium VTE Prophylaxis: shantanu 40 Stress Ulcer Prophylaxis: po Plans in collaboration with bedside consultants and IM MDs. Discussed with RN to reach out if any questions or concerns A total of 32 minutes of critical care time was devoted to this patient today, required to treat and/or prevent further deterioration of critical care condition ( as above) . Sepsis Event Evaluation Height, Weight, BMI Height: '" Weight: 146lbs. oz. 66.990677ed; 22.83 BMI Method:Stated Focused Exam Time of Focused Exam: 01:00 Exam Exam Patient acknowledged, consented, and participated in this virtual visit which was conducted using real time audio/video Vital Signs Date Time Temp Pulse Resp B/P (MAP) Pulse Ox O2 Delivery O2 Flow Rate FiO2 03/24/22 09:00 84 16 101/59 98 Nasal Cannula 5.00 03/24/22 08:00 97 Nasal Cannula 5.00 03/24/22 08:00 85 19 104/59 97 Nasal Cannula 5.00 03/24/22 08:00 03/24/22 07:56 35.8 03/24/22 07:56 Nasal Cannula 5.00 03/24/22 07:50 79 91/50 03/24/22 07:21 79 33 97 25.00 03/24/22 07:00 79 26 110/61 96 NIV Bilevel 25.00 03/24/22 07:00 79 03/24/22 06:52 89/50 03/24/22 06:11 95 NIV Bilevel 25.00 03/24/22 06:00 80 28 106/58 98 OxyMask 5.00 03/24/22 05:00 82 22 97/64 99 OxyMask 5.00 03/24/22 04:00 100 OxyMask 5.00 03/24/22 04:00 03/24/22 04:00 82 15 98/62 98 OxyMask 5.00 03/24/22 03:51 36.4 03/24/22 03:17 OxyMask 5.00 03/24/22 03:00 90 10 120/77 100 NIV Bilevel 25.00 03/24/22 02:00 86 30 102/54 96 NIV Bilevel 25.00 03/24/22 01:42 86 24 98 25.00 03/24/22 01:25 NIV Bilevel 25.00 03/24/22 01:00 84 03/24/22 01:00 84 25 97/57 98 NIV Bilevel 30.00 03/24/22 00:58 NIV Bilevel 30.00 03/24/22 00:00 89 27 115/70 96 NIV Bilevel 40.00 03/24/22 00:00 98 NIV Bilevel 30 03/23/22 23:39 36.3 03/23/22 23:00 86 28 102/63 97 NIV Bilevel 40.00 03/23/22 22:00 90 29 102/59 97 NIV Bilevel 40.00 03/23/22 21:32 88 26 98 60.00 03/23/22 21:00 93 29 95/65 96 NIV Bilevel 40.00 03/23/22 20:06 36.9 89 97 45 03/23/22 20:02 106 41 98 60.00 03/23/22 20:00 98 27 118/67 95 NIV Bilevel 40.00 03/23/22 20:00 94 NIV Bilevel 5.00 40 03/23/22 20:00 NIV Bilevel 40.00 03/23/22 19:45 OxyMask 15.00 03/23/22 19:39 37.2 03/23/22 19:00 86 03/23/22 19:00 105 25 133/74 92 OxyMask 5.00 03/23/22 18:30 42 93 OxyMask 5.00 03/23/22 18:00 98 19 101/57 92 Nasal Cannula 6.00 03/23/22 17:00 96 26 118/67 95 Nasal Cannula 6.00 03/23/22 17:00 03/23/22 16:00 96 18 123/69 97 Nasal Cannula 6.00 03/23/22 16:00 94 Nasal Cannula 5.00 03/23/22 16:00 37.0 03/23/22 15:00 102 45 114/72 95 Nasal Cannula 6.00 03/23/22 14:00 103 23 115/72 94 Nasal Cannula 6.00 03/23/22 13:00 101 03/23/22 13:00 96 37 93/62 97 Nasal Cannula 6.00 03/23/22 12:00 96 38 93/65 94 Nasal Cannula 6.00 03/23/22 12:00 94 Nasal Cannula 5.00 03/23/22 11:25 03/23/22 11:00 92 27 88/58 96 Nasal Cannula 6.00 03/23/22 10:00 93 25 83/59 96 Nasal Cannula 6.00 I & O 03/24/22 07:00 Intake Total 2930 ml Output Total 1525 ml Balance 1405 ml Height & Weight Height: '" Weight: 146lbs. oz. 66.913490jt; 22.83 BMI Method:Stated General Appearance: No Apparent Distress, Chronically ill HEENT: PERRL/EOMI, Other (ORAL MUCOSA EXTREMELY DRY) Neck: Normal Inspection, Non Tender Respiratory: No Accessory Muscle Use, No Respiratory Distress, Other (Anterior chest is clear there is significant diminishment of breath sounds posteriorly with some scattered rales no wheezing noted) Cardiovascular: Regular Rate, Rhythm, No Edema, No Gallop, No Murmur Capillary Refill: Less Than 3 Seconds Gastrointestinal: non tender, soft Extremity: Normal Capillary Refill, No Pedal Edema Neurologic/Psychiatric: Alert, Oriented x3 (BUT VERY POOR MEMORY. 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
--- NOTE | 2022-03-24 10:55 | Progress Note ---
Subjective Subjective/Events-last exam Pt states she is tired, she appears more sleepy than prior days. She required bipap overnight, but is on 5 lpm supplemental oxygen by nasal cannula this morning. She also required norepinephrine briefly early in the morning and is weaned off again. Focused Exam Time of Focused Exam: 01:00 Objective Exam Last Set of Vital Signs Vital Signs Date Time Temp Pulse Resp B/P (MAP) Pulse Ox O2 Delivery O2 Flow Rate FiO2 03/24/22 10:00 88 38 105/58 98 Nasal Cannula 5.00 03/24/22 07:56 35.8 03/24/22 00:00 30 Capillary Refill : Less Than 3 Seconds I&O Intake and Output 03/24/22 00:00 Intake Total 2940 ml Output Total 1925 ml Balance 1015 ml Intake Oral 2235 ml IV Total 705 ml Output Urine Total 1925 ml General: No Acute Distress, Other (lethargic) Lungs: Other (ronchi) Heart: Regular Rate Abdomen: Normal Bowel Sounds, Soft Extremities: Other (trace pedal edema, edema in arms and hands) Neuro: Normal Speech Psych/Mental Status: Mood NL Results/Procedures Lab Laboratory Tests 03/23/22 14:57: Blood Gas Puncture Site NA, Blood Gas Patient Temperature 37.0, Arterial Blood pH 7.38, Arterial Blood Partial Pressure CO2 37, Arterial Blood Partial Pressure O2 41L, Arterial Blood HCO3 21L, Arterial Blood Total CO2 22.5, Arterial Blood Oxygen Saturation 70L, Arterial Blood Base Excess -2.9L, Hayden Test NA, Blood Gas Ventilator Setting NO, Blood Gas Inspired Oxygen 5 03/23/22 16:06: Glucometer 165H 03/23/22 20:38: Glucometer 151H 03/24/22 05:54: White Blood Count 5.0, Red Blood Count 3.18L, Hemoglobin 9.7L, Hematocrit 29L, Mean Corpuscular Volume 91, Mean Corpuscular Hemoglobin 31, Mean Corpuscular Hemoglobin Concent 33, Red Cell Distribution Width 16.0H, Platelet Count 151, Mean Platelet Volume 10.6, Immature Granulocyte % (Auto) 1, Neutrophils (%) (Auto) 76H, Lymphocytes (%) (Auto) 10L, Monocytes (%) (Auto) 8, Eosinophils (%) (Auto) 4, Basophils (%) (Auto) 0, Neutrophils # (Auto) 3.8, Lymphocytes # (Auto) 0.5L, Monocytes # (Auto) 0.4, Eosinophils # (Auto) 0.2, Basophils # (Auto) 0.0, Immature Granulocyte # (Auto) 0.1, Sodium Level 138, Potassium Level 3.4L, Chloride Level 109H, Carbon Dioxide Level 20L, Anion Gap 9, Blood Urea Nitrogen 16, Creatinine 0.61, Estimat Glomerular Filtration Rate 103, BUN/Creatinine Ratio 26, Glucose Level 126H, Calcium Level 8.8, Corrected Calcium 10.4H, Phosphorus Level 2.3, Magnesium Level 1.4L, Total Bilirubin 0.7, Aspartate Amino Transf (AST/SGOT) 13, Alanine Aminotransferase (ALT/SGPT) 14, Alkaline Phosphatase 95, Total Protein 4.6L, Albumin 2.0L 03/24/22 10:00: 03/24/22 10:39: Glucometer 190H Microbiology 03/20/22 Blood Culture - Preliminary, Resulted No growth 03/20/22 MRSA Screen - Final, Complete MRSA not isolated 03/20/22 Urine Culture - Final, Complete NO GROWTH 03/20/22 Fecal Leukocyte Stain - Final, Complete 03/20/22 C. difficile GDH Antigen & Toxins - Final, Complete 03/20/22 Stool Culture - Final, Complete Assessment/Plan Assessment/Plan (1) Septic shock Status: Acute Assessment & Plan: Uncertain etiology, initially with diarrhea and fever. C diff neg. Urine culture no growth. Blood cultures no growth to date. Possible pneumonia, but CT chest has had similar findings for chronic time period. Continue cefepime. Norepinephrine and LR. Appreciate Tsering ICU assistance. 03/24- holding IVF and giving lasix this am due to increasing swelling and worsening hypoxia overnight. Continue cefepime. (2) Pneumonia Status: Acute Assessment & Plan: Bilateral multifocal, concerning for possible underlying malignancy, particularly as findings are not new and she has been on more than one course of antibiotics. Continue cefepime for now. Qualifiers: (3) Adnexal mass Status: Acute Assessment & Plan: Was scheduled for biopsy outpatient, but was unable to be done due to blood thinners, holding currently, but given severity of current illness, not likely able to get done currently. Discussed difficulty in prognostic planning without biopsy. (4) CAD (coronary artery disease) Status: Chronic Assessment & Plan: Severe multivessel disease both coronary and peripheral, holding antiplatelets in hopes of biopsy shortly. (5) NSTEMI (non-ST elevated myocardial infarction) Status: Acute Assessment & Plan: Mild troponin elevation, appreciate Cardiology recommendations. Known severe CAD and multiple other vascular occlusions, was referred for CABG but had possible stroke and was deferred, has outpatient appt with Dr. Damon. Holding antiplatelets due to need for adnexal mass biopsy. (6) Cardiomyopathy Status: Chronic Qualifiers: Qualified Codes: I25.5 - Ischemic cardiomyopathy (7) Tobacco abuse Status: Chronic (8) HLD (hyperlipidemia) Status: Chronic (9) T2DM (type 2 diabetes mellitus) Status: Chronic Assessment & Plan: Sliding scale insulin protocol Qualifiers: Qualified Codes: E11.69 - Type 2 diabetes mellitus with other specified complication (10) HFrEF (heart failure with reduced ejection fraction) Status: Chronic Assessment & Plan: EF 30-35% 03/20/22. Appreciate Cardiology recommendations. 03/24 lasix 40 mg IV today, monitor BP closely (11) Lactic acidosis Status: Resolved (12) Peripheral arterial disease Status: Chronic (13) Acute renal failure Status: Resolved (14) Carotid artery disease Status: Chronic (15) DVT prophylaxis Status: Acute Assessment & Plan: Enoxaparin MATTHEW WEATHERS MD March 24, 2022 10:54
[2022-03-24] MEDS ORDERED: NS (IVPB) 50 ML ONE (11:08)
[2022-03-24 11:30] VITALS: BP 94/84
[2022-03-24] MEDS ORDERED: ALBUMIN 25% 25 GM/100 ML 50 ML IV ONE (12:15)
[2022-03-24 15:01] VITALS: BP 94/65
[2022-03-24 15:25] LABS: ABG BASE EXCESS -1.7 MMOL/L (-2.5-2.5); ABG OXYGEN SATURATION 97 % (94-100); ABG PCO2 36 MMHG (35-45); ABG PH 7.41 (7.37-7.43); ABG PO2 87 MMHG (79-93); ABG TCO2 23.3 MMOL/L (21.0-31.0)
--- NOTE | 2022-03-24 15:26 | Diagnostic Imaging Report ---
INDICATION: Dyspnea. EXAMINATION: Frontal chest was obtained at 2:39 p.m. COMPARISON: 03/23/2022. Heart is mildly enlarged. There are extensive bibasilar infiltrates and central vascular congestive changes are similar to the prior study. Moderate-sized left pleural effusion is noted. There is no pneumothorax. Right IJ central catheter tip overlies the upper SVC. IMPRESSION: No change in extensive bilateral infiltrates and central vascular congestive changes with unchanged left pleural effusion. Dictated by: Dictated on workstation # [id number]
[2022-03-24 15:29] LABS: ALLENS TEST YES-POS; INSPIRED O2 25%; VENTILATOR NO
--- NOTE | 2022-03-24 16:39 | Cardiology Progress Note ---
Progress Note-Cardiology Events since last exam Date Seen by Provider: March 24, 2022 Time Seen by Provider: 16:35 Events since last exam I am following her due to non-ST elevation myocardial infarction and cardiom yopathy. She remains in the intensive care unit. Overnight, the nurses were able to wean the norepinephrine but this morning she developed recurrent hypotension and had to be put back on norepinephrine. When I entered her room she was sleeping. She woke to voice. She states her breathing and cough have improved. She denies chest pain, palpitations, syncope, or ankle edema. Certain portions of this document may have been dictated utilizing voice recognition technology. Inherent to this technology, typographical and grammatical errors may exist. As much as I am diligent to identify and correct these mistakes, some errors may remain in the document. Vitals Last set of Vitals Signs Vital Signs 03/24/22 03/24/22 03/24/22 00:00 15:50 16:00 Temp 36.4 Pulse 105 Resp 20 B/P (MAP) 95/67 Pulse Ox 96 O2 Delivery Nasal Cannula O2 Flow Rate 5.00 FiO2 30 Labs Labs Laboratory Tests 03/24/22 05:54 Exam Vital Signs Vital Signs Date Time Temp Pulse Resp B/P (MAP) Pulse Ox O2 Delivery O2 Flow Rate FiO2 03/24/22 16:00 105 20 95/67 96 Nasal Cannula 5.00 03/24/22 15:50 36.4 03/24/22 00:00 30 Physical Exam General: Alert. No acute distress. She appears older than her stated age. Eye: No xanthelasma. HENT: Normocephalic. Neck: Jugular venous pressure does not appear elevated. Respiratory: Lungs are clear to auscultation. Respirations are non-labored. Breath sounds are equal. Symmetrical chest wall expansion. Cardiovascular: Normal rate. Regular rhythm. No murmur. No gallop. No edema. Gastrointestinal: Soft. Normal bowel sounds. Skin: Warm. Dry. Neurologic: Alert and oriented to person, place, time. Cranial nerves 3-11 grossly intact. Psychiatric: Cooperative. Appropriate mood & affect. Labs Laboratory Tests Test 03/23/22 20:38 03/24/22 05:54 03/24/22 10:00 03/24/22 10:39 Range/Units Glucometer 151 H 190 H 70-110 MG/DL White Blood Count 5.0 4.3-11.0 10^3/uL Red Blood Count 3.18 L 3.80-5.11 10^6/uL Hemoglobin 9.7 L 11.5-16.0 g/dL Hematocrit 29 L 35-52 % Mean Corpuscular Volume 91 80-99 fL Mean Corpuscular Hemoglobin 31 25-34 pg Mean Corpuscular Hemoglobin Concent 33 32-36 g/dL Red Cell Distribution Width 16.0 H 10.0-14.5 % Platelet Count 151 130-400 10^3/uL Mean Platelet Volume 10.6 9.0-12.2 fL Immature Granulocyte % (Auto) 1 % Neutrophils (%) (Auto) 76 H 42-75 % Lymphocytes (%) (Auto) 10 L 12-44 % Monocytes (%) (Auto) 8 0-12 % Eosinophils (%) (Auto) 4 0-10 % Basophils (%) (Auto) 0 0-10 % Neutrophils # (Auto) 3.8 1.8-7.8 10^3/uL Lymphocytes # (Auto) 0.5 L 1.0-4.0 10^3/uL Monocytes # (Auto) 0.4 0.0-1.0 10^3/uL Eosinophils # (Auto) 0.2 0.0-0.3 10^3/uL Basophils # (Auto) 0.0 0.0-0.1 10^3/uL Immature Granulocyte # (Auto) 0.1 0.0-0.1 10^3/uL Sodium Level 138 135-145 MMOL/L Potassium Level 3.4 L 3.6-5.0 MMOL/L Chloride Level 109 H 98-107 MMOL/L Carbon Dioxide Level 20 L 21-32 MMOL/L Anion Gap 9 5-14 MMOL/L Blood Urea Nitrogen 16 7-18 MG/DL Creatinine 0.61 0.60-1.30 MG/DL Estimat Glomerular Filtration Rate 103 BUN/Creatinine Ratio 26 Glucose Level 126 H 70-105 MG/DL Calcium Level 8.8 8.5-10.1 MG/DL Corrected Calcium 10.4 H 8.5-10.1 MG/DL Phosphorus Level 2.3 2.3-4.7 MG/DL Magnesium Level 1.4 L 1.6-2.4 MG/DL Total Bilirubin 0.7 0.1-1.0 MG/DL Aspartate Amino Transf (AST/SGOT) 13 5-34 U/L Alanine Aminotransferase (ALT/SGPT) 14 0-55 U/L Alkaline Phosphatase 95 40-136 U/L Total Protein 4.6 L 6.4-8.2 GM/DL Albumin 2.0 L 3.2-4.5 GM/DL Test 03/24/22 11:45 03/24/22 15:08 03/24/22 15:46 Range/Units Lactic Acid Level 1.04 0.50-2.00 MMOL/L Blood Gas Puncture Site L RADIAL Blood Gas Patient Temperature 37.0 Arterial Blood pH 7.41 7.37-7.43 Arterial Blood Partial Pressure CO2 36 35-45 MMHG Arterial Blood Partial Pressure O2 87 79-93 MMHG Arterial Blood HCO3 22 L 23-27 MMOL/L Arterial Blood Total CO2 23.3 21.0-31.0 MMOL/L Arterial Blood Oxygen Saturation 97 94-100 % Arterial Blood Base Excess -1.7 -2.5-2.5 MMOL/L Hayden Test YES-POS Blood Gas Ventilator Setting NO Blood Gas Inspired Oxygen 25% Glucometer 255 H 70-110 MG/DL Diagnosis/Problems Diagnosis/Problems (1) Non-ST elevation myocardial infarction (NSTEMI), initial care episode Assessment & Plan: She appears to have suffered another non-ST elevation myocardial infarction during this admission. She has known severe three-vessel coronary artery disease. She had been seen by cardiothoracic surgery at [facility] and by report, they did not think she was a good surgical candidate. The plan was for high risk percutaneous coronary intervention but then the patient left AGAINST MEDICAL ADVICE before this could be performed. She thought she had an appointment at [facility] but we were unable to locate any appointments for her at that facility. Once her sepsis improves, we will need to determine the next course of treatment for her coronary artery disease. I have resumed her aspirin. I will hold off on giving her clopidogrel until she has a biopsy of the pelvic mass. I have also resumed her high-dose statin and her metoprolol. The metoprolol is on hold until she is weaned from vasopressors. (2) Ischemic cardiomyopathy Status: Chronic Assessment & Plan: She has moderate left ventricular systolic dysfunction. Metoprolol succinate has been resumed but as above, is on hold until she is off vasopressors. Once her blood pressures are improved, we can try to add an SHEILA inhibitor. (3) Chronic HFrEF (heart failure with reduced ejection fraction) Assessment & Plan: Although her BNP level was elevated, this was in the setting of sepsis and acute kidney injury. We will continue guideline directed medical therapy as tolerated by her renal function and blood pressure. (4) Peripheral arterial disease Status: Chronic Assessment & Plan: She most likely also has extensive peripheral vascular disease as noted on her previous cardiac catheterization. We will continue aspirin and high-dose statin medication. This will also need to be addressed once she recovers from the acute noncardiac illness. (5) Septic shock Status: Acute Assessment & Plan: She continues to wean off norepinephrine. She is receiving antibiotics. (6) Acute kidney injury Assessment & Plan: Her creatinine was elevated at the time of admission. This has now improved. This would not be a contraindication to treating her with SHEILA inhibitor or ARB. (7) Adnexal mass Status: Acute Assessment & Plan: We will continue to hold clopidogrel until she has a biopsy of this mass. Aspirin should not be a contraindication to a biopsy. (8) Type 2 diabetes mellitus with complication Assessment & Plan: This is being managed by the hospitalist. (9) Cigarette smoker Status: Chronic Assessment & Plan: She needs to quit smoking. JACQUELYN OSORIO JR, MD March 24, 2022 16:39
[2022-03-25] MEDS: guaiFENesin/DM (ROBITUSSIN DM) 10 ML UDC PO PRN (01:50)
[2022-03-25] MEDS ORDERED: morphine INJ 10 MG/ML 1ML (SYR OR VIAL) IVP STA (02:08)
[2022-03-25] MEDS: RT-ALBUTEROL/IPRATROPIUM 3 ML (DUONEB) VIAL INH SCH ×6 (02:13→23:50)
[2022-03-25] MEDS ORDERED: NOREPINEPHRINE 8 MG/250 ML 250 ML IV ONE (02:18)
[2022-03-25] MEDS ORDERED: morphine INJ 4 MG/ML 1 ML (VIAL/SYRINGE) ONE (02:18)
[2022-03-25] MEDS: NOREPINEPHRINE 8 MG/250 ML 250 ML IV SCH ×5 (02:21→18:42)
[2022-03-25 02:25] LABS: ABG BASE EXCESS -6.6 MMOL/L (-2.5-2.5); ABG OXYGEN SATURATION 81 % (94-100); ABG PCO2 40 MMHG (35-45); ABG PO2 54 MMHG (79-93); ABG TCO2 20.1 MMOL/L (21.0-31.0)
[2022-03-25 02:26] LABS: BASOPHILS # (AUTO) 0.1 10^3/uL (0.0-0.1); BASOPHILS % (AUTO) 1 % (0-10); EOSINOPHILS # (AUTO) 0.2 10^3/uL (0.0-0.3); EOSINOPHILS % (AUTO) 2 % (0-10); HEMATOCRIT 35 % (35-52); HEMOGLOBIN 11.6 g/dL (11.5-16.0); LYMPHOCYTES # (AUTO) 1.3 10^3/uL (1.0-4.0); LYMPHOCYTES % (AUTO) 14 % (12-44); MEAN CORPUSCULAR HEMOGLOBIN 31 pg (25-34); MEAN CORPUSCULAR HGB CONC 33 g/dL (32-36); MEAN CORPUSCULAR VOLUME 92 fL (80-99); MEAN PLATELET VOLUME 10.5 fL (9.0-12.2); MONOCYTES # (AUTO) 0.8 10^3/uL (0.0-1.0); MONOCYTES % (AUTO) 8 % (0-12); NEUTROPHILS # (AUTO) 6.9 10^3/uL (1.8-7.8); NEUTROPHILS % (AUTO) 74 % (42-75); PLATELET COUNT 245 10^3/uL (130-400); WHITE BLOOD COUNT 9.2 10^3/uL (4.3-11.0)
[2022-03-25 02:33] LABS: ALLENS TEST POSITIVE; INSPIRED O2 25%; PATIENT TEMP 36.4; VENTILATOR NO
[2022-03-25 02:40] LABS: ALBUMIN 2.3 GM/DL (3.2-4.5); CHLORIDE 105 MMOL/L (98-107); POTASSIUM 3.9 MMOL/L (3.6-5.0); SODIUM 137 MMOL/L (135-145)
[2022-03-25 02:41] LABS: CALCIUM 8.9 MG/DL (8.5-10.1)
[2022-03-25 02:42] LABS: GLUCOSE 160 MG/DL (70-105); TOTAL PROTEIN 5.2 GM/DL (6.4-8.2)
[2022-03-25 02:43] LABS: CARBON DIOXIDE 17 MMOL/L (21-32)
[2022-03-25 02:44] LABS: BILIRUBIN,TOTAL 0.8 MG/DL (0.1-1.0)
[2022-03-25 02:45] LABS: PHOSPHORUS 2.1 MG/DL (2.3-4.7)
[2022-03-25 02:46] LABS: ALKALINE PHOSPHATASE 108 U/L (40-136); CREATININE SERUM 0.57 MG/DL (0.60-1.30); GFR ESTIMATED 105
[2022-03-25 02:47] LABS: BUN/CREATININE RATIO 19
[2022-03-25] MEDS ORDERED: POTASSIUM CL 10MEQ/50ML IVPB 100 ML IV ONE (02:47)
[2022-03-25 02:49] LABS: ALANINE AMINOTRANSFERASE 13 U/L (0-55); MAGNESIUM 1.5 MG/DL (1.6-2.4)
[2022-03-25] MEDS: POTASSIUM CL 10MEQ/50ML IVPB 50 ML IV SCH ×3 (02:49→05:33)
[2022-03-25] MEDS: VASOPRESSIN INJECTION 20 UNIT in NS (IVPB) 100 ML IV SCH ×2 (02:50→20:04)
[2022-03-25] MEDS: MAGNESIUM 1 GM/100 ML IVPB 100 ML IV SCH ×3 (03:09→05:33)
--- NOTE | 2022-03-25 03:30 | Tele-ICU Progress Note ---
Progress Note TELE ICU Nursing called because pt is very uncomfortable, became tachycardic and tachypneic after being put supine for repositioning, desaturations on NC to 90 while RR up to [address] - is still on levophed for BP- is being followed by caridology due to known CHF with EF 35-40% and had been on metoprolol which is being held due to hypotension and need for levophed. Nursing has orders to substitute vasopressin for levophed for her poss sepsis- her admit was 103.4 fever on 03/20- diarrhea, hypotensive on admit- has been on cefepime BLood cultures, urine and stool cultures all neg 03/24 CXR continued extensive bilateral infiltrates CT CHest, abd, pelvis on admit 03/20 showed adrenal mass raising concern for neoplasm, multifocal infiltrates/consolidation RML, RLL, ALFREDO, LLL which had previously been on CT 01/16/22 - she was transferred to for NSTEMI and multivessel arterial disease. Has not yet had biopsy of the adrenal mass. Earlier labs today showed low K, Mg- Checking all labs now Mg is 1.5, K 3.9, phos 2,1- to be replaced- Requested CVP moniotoring- running - EKG- sinus tachycardia- no change in Q waves in inferior and anterior leads- c/w prev inferior and anterior leads. Eli add vasopressin to attempt to reduce levophed need which may be adding to the tachycardia. Was given morphine 2 mg IV once for anxiety, tachypnea. Replace pt on BiPAP 10/05 /50% - sats are now 97%, BP is being titrated with levophed re- added to vasopressin, however cardiac rhythm is now sinus at 107 (down from 157) Repeat ABGs and post replacement lab orders placed Focused Exam Lactate Level 03/24/22 11:45: Lactic Acid Level 1.04 Height, Weight, BMI Height: '" Weight: 146lbs. oz. 66.565738td; 22.83 BMI Method:Stated Time of Focused Exam: 01:00 FIDEL TIMMONS DO March 25, 2022 03:30
[2022-03-25] MEDS: ENOXAPARIN 40 MG/0.4 ML (LOVENOX) SYR SC SCH (04:08)
[2022-03-25] MEDS: CEFEPIME INJECTION 1,000 MG in NS (IVPB) 50 ML IV SCH (04:34)
[2022-03-25] MEDS: inSUlin ASPART (NovoLOG) 1 UNIT/0.01 ML (CHARGE PER UNIT) SC SCH ×4 (05:32→21:58)
[2022-03-25] MEDS: KCL 20 MEQ TAB (K-DUR) PO SCH (05:33)
[2022-03-25] MEDS ORDERED: SODIUM PHOSPHATE INJ 15 MM in D5W 100 ML IVPB 100 ML IV ONE (07:00)
[2022-03-25 07:34] VITALS: BP 119/96
[2022-03-25] MEDS: PANTOPRAZOLE 40 MG (PROTONIX) VIAL IV SCH (09:20)
[2022-03-25 09:36] LABS: POTASSIUM 4.3 MMOL/L (3.6-5.0)
[2022-03-25 09:37] LABS: CALCIUM 9.5 MG/DL (8.5-10.1)
[2022-03-25 09:41] LABS: CREATININE SERUM 0.72 MG/DL (0.60-1.30)
[2022-03-25 09:44] LABS: MAGNESIUM 2.1 MG/DL (1.6-2.4)
[2022-03-25 10:17] VITALS: BP 112/90
[2022-03-25] MEDS: ASPIRIN E.C. 81 MG (ECOTRIN) TAB PO SCH (11:32)
--- NOTE | 2022-03-25 13:12 | Progress Note ---
Subjective Subjective/Events-last exam Pt is very tired, wearing bipap, but able to answer yes or no questions and talk a little bit. She had to have vasopressin started and has had worsening tachycardia and hypoxia overnight. Focused Exam Lactate Level 03/24/22 11:45: Lactic Acid Level 1.04 Time of Focused Exam: 01:00 Objective Exam Last Set of Vital Signs Vital Signs Date Time Temp Pulse Resp B/P (MAP) Pulse Ox O2 Delivery O2 Flow Rate FiO2 03/25/22 12:00 36.0 03/25/22 12:00 114 40 114/94 98 Nasal Cannula 3.00 03/25/22 04:00 50 Capillary Refill : Less Than 3 Seconds I&O Intake and Output 03/25/22 00:00 Intake Total 3400 ml Output Total 3175 ml Balance 225 ml Intake Oral 1200 ml IV Total 2200 ml Output Urine Total 3175 ml # Bowel Movements 1 General: Alert, Moderate Distress Lungs: Other (ronchi) Heart: Other (tachcyardic) Abdomen: Normal Bowel Sounds, Soft Extremities: Other (trace edema in legs, edema noted in arms and hands) Results/Procedures Lab Laboratory Tests 03/24/22 15:08: Blood Gas Puncture Site L RADIAL, Blood Gas Patient Temperature 37.0, Arterial Blood pH 7.41, Arterial Blood Partial Pressure CO2 36, Arterial Blood Partial Pressure O2 87, Arterial Blood HCO3 22L, Arterial Blood Total CO2 23.3, Arterial Blood Oxygen Saturation 97, Arterial Blood Base Excess -1.7, Hayden Test YES-POS, Blood Gas Ventilator Setting NO, Blood Gas Inspired Oxygen 25% 03/24/22 15:46: Glucometer 255H 03/24/22 19:56: Glucometer 223H 03/24/22 20:03: Glucometer 235H 03/25/22 02:15: White Blood Count 9.2, Red Blood Count 3.79L, Hemoglobin 11.6, Hematocrit 35, Mean Corpuscular Volume 92, Mean Corpuscular Hemoglobin 31, Mean Corpuscular Hemoglobin Concent 33, Red Cell Distribution Width 16.4H, Platelet Count 245, Mean Platelet Volume 10.5, Immature Granulocyte % (Auto) 1, Neutrophils (%) (Auto) 74, Lymphocytes (%) (Auto) 14, Monocytes (%) (Auto) 8, Eosinophils (%) (Auto) 2, Basophils (%) (Auto) 1, Neutrophils # (Auto) 6.9, Lymphocytes # (Auto) 1.3, Monocytes # (Auto) 0.8, Eosinophils # (Auto) 0.2, Basophils # (Auto) 0.1, Immature Granulocyte # (Auto) 0.1, Blood Gas Puncture Site CENTRAL LINE, Blood Gas Patient Temperature 36.4, Arterial Blood pH 7.30*L, Arterial Blood Partial Pressure CO2 40, Arterial Blood Partial Pressure O2 54L, Arterial Blood HCO3 19L , Arterial Blood Total CO2 20.1L, Arterial Blood Oxygen Saturation 81L, Arterial Blood Base Excess -6.6L, Hayden Test POSITIVE, Blood Gas Ventilator Setting NO, Blood Gas Inspired Oxygen 25%, Sodium Level 137, Potassium Level 3.9, Chloride Level 105, Carbon Dioxide Level 17L, Anion Gap 15H, Blood Urea Nitrogen 11, Creatinine 0.57L, Estimat Glomerular Filtration Rate 105, BUN/Creatinine Ratio 19, Glucose Level 160H, Calcium Level 8.9, Corrected Calcium 10.3H, Phosphorus Level 2.1L, Magnesium Level 1.5L, Total Bilirubin 0.8, Aspartate Amino Transf (AST/SGOT) 14, Alanine Aminotransferase (ALT/SGPT) 13, Alkaline Phosphatase 108, Troponin I < 0.028, B-Type Natriuretic Peptide 1572.1H, Total Protein 5.2L, Albumin 2.3L 03/25/22 05:26: Glucometer 198H 03/25/22 09:15: Sodium Level 139, Potassium Level 4.3, Chloride Level 105, Carbon Dioxide Level 20L, Anion Gap 14, Blood Urea Nitrogen 18, Creatinine 0.72, Estimat Glomerular Filtration Rate 96, BUN/Creatinine Ratio 25, Glucose Level 224H, Calcium Level 9.5, Phosphorus Level 3.0, Magnesium Level 2.1 03/25/22 10:41: Glucometer 232H Microbiology 03/20/22 Blood Culture - Preliminary, Resulted No growth 03/20/22 MRSA Screen - Final, Complete MRSA not isolated 03/20/22 Urine Culture - Final, Complete NO GROWTH 03/20/22 Fecal Leukocyte Stain - Final, Complete 03/20/22 C. difficile GDH Antigen & Toxins - Final, Complete 03/20/22 Stool Culture - Final, Complete Assessment/Plan Assessment/Plan (1) Septic shock Status: Acute Assessment & Plan: Uncertain etiology, initially with diarrhea and fever. C diff neg. Urine culture no growth. Blood cultures no growth to date. Possible pneumonia, but CT chest has had similar findings for chronic time period. Continue cefepime. Norepinephrine and LR. Appreciate [facility] ICU assistance. 03/24- holding IVF and giving lasix this am due to increasing swelling and worsening hypoxia overnight. Continue cefepime. 03/25- requiring both vasopressin and norepinephrine overnight, but vasopressin held again this am. Remains on cefepime. (2) Pneumonia Status: Acute Assessment & Plan: Bilateral multifocal, concerning for possible underlying malignancy, particularly as findings are not new and she has been on more than one course of antibiotics. Continue cefepime for now. Qualifiers: (3) Adnexal mass Status: Acute Assessment & Plan: Was scheduled for biopsy outpatient, but was unable to be done due to blood thinners, holding currently, but given severity of current illness, not likely able to get done currently. Discussed difficulty in prognostic planning without biopsy. (4) CAD (coronary artery disease) Status: Chronic Assessment & Plan: Severe multivessel disease both coronary and peripheral, holding antiplatelets in hopes of biopsy shortly. (5) NSTEMI (non-ST elevated myocardial infarction) Status: Acute Assessment & Plan: Mild troponin elevation, appreciate Cardiology recommendations. Known severe CAD and multiple other vascular occlusions, was referred for CABG but had possible stroke and was deferred, has outpatient appt with Dr. Damon. Holding antiplatelets due to need for adnexal mass biopsy. (6) Cardiomyopathy Status: Chronic Qualifiers: Qualified Codes: I25.5 - Ischemic cardiomyopathy (7) Tobacco abuse Status: Chronic (8) HLD (hyperlipidemia) Status: Chronic (9) T2DM (type 2 diabetes mellitus) Status: Chronic Assessment & Plan: Sliding scale insulin protocol Qualifiers: Qualified Codes: E11.69 - Type 2 diabetes mellitus with other specified complication (10) HFrEF (heart failure with reduced ejection fraction) Status: Chronic Assessment & Plan: EF 30-35% 03/20/22. Appreciate Cardiology recommendations. 03/24 lasix 40 mg IV today, monitor BP closely 03/25- had low bp after lasix yesterday, but BNP is significantly up and CXR with worsening appearance, will defer to [facility] ICU and Cardiology on repeat lasix (11) Lactic acidosis Status: Resolved (12) Peripheral arterial disease Status: Chronic (13) Acute renal failure Status: Resolved (14) Carotid artery disease Status: Chronic (15) Acute respiratory failure Status: Acute Assessment & Plan: 03/25- Secondary to pneumonia, sepsis, possible underlying pulmonary mets. Now frequently requiring bipap. Discussed her tenuous status, she wants to stay full code and to be intubated if needed. Qualifiers: Qualified Codes: J96.01 - Acute respiratory failure with hypoxia (16) DVT prophylaxis Status: Acute Assessment & Plan: Enoxaparin MATTHEW WEATHERS MD March 25, 2022 13:12
--- NOTE | 2022-03-25 16:05 | Tele-ICU Progress Note ---
Subjective Date Seen by a Provider: March 25, 2022 Time Seen by a Provider: 16:00 Subjective/Events-last exam (Tele-ICU Physician , Progress Note ) Available chart/ vitals / labs / Images reviewed Video assessment done using teleICU camera, rest of exam as per RN Discussed with RN , EXAM PER RN Events overnight : tachycardia, started on n BiPAP 12/6 /50% Afebrile FiO2 - 50% I/O = even Drips: Pressors: levo vaso Consultants: barbie grace Hospital course: (03/19) 61/F admitted with severe sepsis possible source GI or pneumonia. //ivf and bolus for hypotension--Levo. 03/25-levo 0.05 vaso , BiPAP 12/6 /50% A/P Sepsis, shock - weaning pressors, - levo- vaso, costisol 16 on 03/24 - follow CVP ( 10 ) , transfuse albumin prn Acute resp failure 03/24 - was on BIPAP -> NC after lasix x1 03/25 - BiPAP 12/6 /50% --> NC 3 l PNA - cont abx NSTEMI./ svere 3 vessel CAD / ICM / CHF - as per cards - EF 35 to 40%, grade 2 diastolic dysfunction, mild mitral regurgitation.PA pressure around 20 mmHg -clopidogrel on hold until she has a biopsy MERCEDES - improved - resolved DM ii - ISS Diarrhea - resolved - U/UP negative Right adnexal mass 5x7 cm , multiple pulm nodulees, concerning for malignancy - w/up as per PCP , bx to be done when more stable - as per Sx consult Left subclavian artery stenosis PAD Lines : r IJ 03/21(Central Line Necessity Reviewed) Lang: OG: Nutrition: po Analgesia: Anxiety/ delirium VTE Prophylaxis: shantanu 40 Stress Ulcer Prophylaxis: po Plans in collaboration with bedside consultants and IM MDs. Discussed with RN to reach out if any questions or concerns A total of 32 minutes of critical care time was devoted to this patient today, required to treat and/or prevent further deterioration of critical care condition ( as above) . Sepsis Event Evaluation Height, Weight, BMI Height: '" Weight: 146lbs. oz. 66.142625ym; 24.35 BMI Method:Stated Focused Exam Lactate Level 03/24/22 11:45: Lactic Acid Level 1.04 Time of Focused Exam: 01:00 Exam Exam Patient acknowledged, consented, and participated in this virtual visit which was conducted using real time audio/video Vital Signs Date Time Temp Pulse Resp B/P (MAP) Pulse Ox O2 Delivery O2 Flow Rate FiO2 03/25/22 15:19 97 Nasal Cannula 3.00 03/25/22 15:00 110 34 105/82 97 Nasal Cannula 3.00 03/25/22 14:00 113 38 115/83 98 03/25/22 13:36 114 114/94 03/25/22 13:00 113 40 112/89 98 03/25/22 13:00 113 03/25/22 12:00 96 Nasal Cannula 3.00 03/25/22 12:00 36.0 03/25/22 12:00 114 40 114/94 98 Nasal Cannula 3.00 03/25/22 11:00 122 12 106/83 95 NIV Bilevel 30.00 03/25/22 10:22 NIV Bilevel 30.00 03/25/22 10:17 118 39 98 40.00 03/25/22 10:00 117 35 106/90 98 NIV Bilevel 40.00 03/25/22 09:43 121 126/93 03/25/22 09:00 121 35 126/93 99 NIV Bilevel 40.00 03/25/22 08:00 98 NIV Bilevel 50 03/25/22 08:00 122 34 118/94 99 NIV Bilevel 40.00 03/25/22 07:54 35.6 03/25/22 07:34 119 35 100 50.00 03/25/22 07:00 122 03/25/22 07:00 124 36 112/85 99 NIV Bilevel 50.00 03/25/22 06:06 130 121/90 03/25/22 06:00 120 117/95 97 NIV Bilevel 50.00 03/25/22 05:00 131 118/76 97 NIV Bilevel 50.00 03/25/22 04:00 97 NIV Bilevel 50 03/25/22 04:00 98 124/93 99 NIV Bilevel 50.00 03/25/22 04:00 03/25/22 03:38 36.2 03/25/22 03:00 114 76/60 95 NIV Bilevel 50.00 03/25/22 02:50 136/98 03/25/22 02:24 170 03/25/22 02:21 168 03/25/22 02:14 152 63 96 50.00 03/25/22 02:00 158 94/73 90 NIV Bilevel 50.00 03/25/22 02:00 NIV Bilevel 50.00 03/25/22 01:00 99 03/25/22 01:00 99 23 113/87 92 Nasal Cannula 5.00 03/25/22 00:00 100 112/81 92 Nasal Cannula 5.00 03/25/22 00:00 100 112/81 92 Nasal Cannula 5.00 03/24/22 23:33 36.6 03/24/22 23:26 97 Room Air 03/24/22 23:00 97 113/83 93 Nasal Cannula 5.00 03/24/22 22:00 103 98/75 93 Nasal Cannula 5.00 03/24/22 21:57 92 Room Air 03/24/22 21:00 98 114/82 91 Nasal Cannula 5.00 03/24/22 20:00 104 106/78 92 Nasal Cannula 5.00 03/24/22 20:00 95 Room Air 03/24/22 20:00 98 114/82 91 Nasal Cannula 5.00 03/24/22 19:45 37.2 03/24/22 19:33 104 03/24/22 19:00 104 03/24/22 19:00 104 106/76 94 Nasal Cannula 5.00 03/24/22 18:56 94 Room Air 03/24/22 18:00 100 110/75 97 Nasal Cannula 5.00 03/24/22 17:00 101 102/71 96 Nasal Cannula 5.00 I & O 03/25/22 07:00 Intake Total 2700 ml Output Total 3525 ml Balance -825 ml Height & Weight Height: '" Weight: 146lbs. oz. 66.104486tx; 24.35 BMI Method:Stated General Appearance: No Apparent Distress, Chronically ill HEENT: PERRL/EOMI, Other (ORAL MUCOSA EXTREMELY DRY) Neck: Normal Inspection, Non Tender Respiratory: No Accessory Muscle Use, No Respiratory Distress, Other (Anterior chest is clear there is significant diminishment of breath sounds posteriorly with some scattered rales no wheezing noted) Cardiovascular: Regular Rate, Rhythm, No Edema, No Gallop, No Murmur Capillary Refill: Less Than 3 Seconds Gastrointestinal: non tender, soft Extremity: Normal Capillary Refill, No Pedal Edema Neurologic/Psychiatric: Alert, Oriented x3 (BUT VERY POOR MEMORY. ), No Motor/Sensory Deficits, fullerette II-XII Norm as Tested, Other (LETHARGIC) Skin: Normal Color, Warm/Dry, Other (POOR TURGOR) Results Lab Laboratory Tests 03/24/22 05:54 03/25/22 02:15 03/25/22 09:15 Assessment/Plan Assessment/Plan ` WISAM HEWITT MD March 25, 2022 16:05
--- NOTE | 2022-03-25 18:47 | Cardiology Progress Note ---
Progress Note-Cardiology Events since last exam Date Seen by Provider: March 25, 2022 Time Seen by Provider: 18:42 Events since last exam I am following her due to non-ST elevation myocardial infarction. She remains in the intensive care unit. She is now on vasopressin infusion due to shock. She was sitting up in bed eating a salad with some assistance from the staff. She denies chest pain, dyspnea at rest, palpitations, syncope, or ankle edema. Certain portions of this document may have been dictated utilizing voice recognition technology. Inherent to this technology, typographical and grammatical errors may exist. As much as I am diligent to identify and correct these mistakes, some errors may remain in the document. Vitals Last set of Vitals Signs Vital Signs 03/25/22 03/25/22 08:00 18:00 Pulse 110 Resp 43 B/P (MAP) 116/88 Pulse Ox 95 O2 Delivery Nasal Cannula O2 Flow Rate 3.00 FiO2 50 Labs Labs Laboratory Tests 03/25/22 02:15 03/25/22 09:15 Exam Vital Signs Vital Signs Date Time Temp Pulse Resp B/P (MAP) Pulse Ox O2 Delivery O2 Flow Rate FiO2 03/25/22 18:00 110 43 116/88 95 Nasal Cannula 3.00 03/25/22 16:00 36.4 03/25/22 08:00 50 Physical Exam General: Alert. No acute distress. She appears older than her stated age. Eye: No xanthelasma. HENT: Normocephalic. Neck: Jugular venous pressure does not appear elevated. Respiratory: Lungs have some scattered rhonchi. Respirations are non-labored. Breath sounds are equal. Symmetrical chest wall expansion. Cardiovascular: Normal rate. Regular rhythm. No murmur. No gallop. No edema. Gastrointestinal: Soft. Normal bowel sounds. Skin: Warm. Dry. Neurologic: Alert and oriented to person, place, time. Cranial nerves 3-11 grossly intact. Psychiatric: Cooperative. Appropriate mood & affect. Labs Laboratory Tests Test 03/24/22 19:56 03/24/22 20:03 03/25/22 02:15 03/25/22 05:26 Range/Units Glucometer 223 H 235 H 198 H 70-110 MG/DL White Blood Count 9.2 4.3-11.0 10^3/uL Red Blood Count 3.79 L 3.80-5.11 10^6/uL Hemoglobin 11.6 11.5-16.0 g/dL Hematocrit 35 35-52 % Mean Corpuscular Volume 92 80-99 fL Mean Corpuscular Hemoglobin 31 25-34 pg Mean Corpuscular Hemoglobin Concent 33 32-36 g/dL Red Cell Distribution Width 16.4 H 10.0-14.5 % Platelet Count 245 130-400 10^3/uL Mean Platelet Volume 10.5 9.0-12.2 fL Immature Granulocyte % (Auto) 1 % Neutrophils (%) (Auto) 74 42-75 % Lymphocytes (%) (Auto) 14 12-44 % Monocytes (%) (Auto) 8 0-12 % Eosinophils (%) (Auto) 2 0-10 % Basophils (%) (Auto) 1 0-10 % Neutrophils # (Auto) 6.9 1.8-7.8 10^3/uL Lymphocytes # (Auto) 1.3 1.0-4.0 10^3/uL Monocytes # (Auto) 0.8 0.0-1.0 10^3/uL Eosinophils # (Auto) 0.2 0.0-0.3 10^3/uL Basophils # (Auto) 0.1 0.0-0.1 10^3/uL Immature Granulocyte # (Auto) 0.1 0.0-0.1 10^3/uL Blood Gas Puncture Site CENTRAL LINE Blood Gas Patient Temperature 36.4 Arterial Blood pH 7.30 *L 7.37-7.43 Arterial Blood Partial Pressure CO2 40 35-45 MMHG Arterial Blood Partial Pressure O2 54 L 79-93 MMHG Arterial Blood HCO3 19 L 23-27 MMOL/L Arterial Blood Total CO2 20.1 L 21.0-31.0 MMOL/L Arterial Blood Oxygen Saturation 81 L 94-100 % Arterial Blood Base Excess -6.6 L -2.5-2.5 MMOL/L Hayden Test POSITIVE Blood Gas Ventilator Setting NO Blood Gas Inspired Oxygen 25% Sodium Level 137 135-145 MMOL/L Potassium Level 3.9 3.6-5.0 MMOL/L Chloride Level 105 98-107 MMOL/L Carbon Dioxide Level 17 L 21-32 MMOL/L Anion Gap 15 H 5-14 MMOL/L Blood Urea Nitrogen 11 7-18 MG/DL Creatinine 0.57 L 0.60-1.30 MG/DL Estimat Glomerular Filtration Rate 105 BUN/Creatinine Ratio 19 Glucose Level 160 H 70-105 MG/DL Calcium Level 8.9 8.5-10.1 MG/DL Corrected Calcium 10.3 H 8.5-10.1 MG/DL Phosphorus Level 2.1 L 2.3-4.7 MG/DL Magnesium Level 1.5 L 1.6-2.4 MG/DL Total Bilirubin 0.8 0.1-1.0 MG/DL Aspartate Amino Transf (AST/SGOT) 14 5-34 U/L Alanine Aminotransferase (ALT/SGPT) 13 0-55 U/L Alkaline Phosphatase 108 40-136 U/L Troponin I < 0.028 <0.028 NG/ML B-Type Natriuretic Peptide 1572.1 H <100.0 PG/ML Total Protein 5.2 L 6.4-8.2 GM/DL Albumin 2.3 L 3.2-4.5 GM/DL Test 03/25/22 09:15 03/25/22 10:41 03/25/22 15:49 Range/Units Sodium Level 139 135-145 MMOL/L Potassium Level 4.3 3.6-5.0 MMOL/L Chloride Level 105 98-107 MMOL/L Carbon Dioxide Level 20 L 21-32 MMOL/L Anion Gap 14 5-14 MMOL/L Blood Urea Nitrogen 18 7-18 MG/DL Creatinine 0.72 0.60-1.30 MG/DL Estimat Glomerular Filtration Rate 96 BUN/Creatinine Ratio 25 Glucose Level 224 H 70-105 MG/DL Calcium Level 9.5 8.5-10.1 MG/DL Phosphorus Level 3.0 2.3-4.7 MG/DL Magnesium Level 2.1 1.6-2.4 MG/DL Glucometer 232 H 210 H 70-110 MG/DL Diagnosis/Problems Diagnosis/Problems (1) Non-ST elevation myocardial infarction (NSTEMI), initial care episode Assessment & Plan: She appears to have suffered another non-ST elevation myocardial infarction during this admission. She has known severe three-vessel coronary artery disease. She had been seen by cardiothoracic surgery at [facility] and by report, they did not think she was a good surgical candidate. The plan was for high risk percutaneous coronary intervention but then the patient left AGAINST MEDICAL ADVICE before this could be performed. She is on aspirin and high-dose statin medication. Once we get her off vasoactive medications, we can restart beta-liang. Assuming she recovers from this acute, other noncardiac illness, then we will eventually need to have a discussion about moving forward with coronary revascularization. (2) Ischemic cardiomyopathy Status: Chronic Assessment & Plan: She has moderate left ventricular systolic dysfunction. Metoprolol succinate has been resumed but as above, is on hold until she is off vasopressors. Once her blood pressures are improved, we can try to add an SHEILA inhibitor. (3) Chronic HFrEF (heart failure with reduced ejection fraction) Assessment & Plan: Although her BNP level was elevated, this was in the setting of sepsis and acute kidney injury. We will continue guideline directed medical therapy as tolerated by her renal function and blood pressure. I will obtain a follow-up chest x-ray in the morning. If she still has diffuse infiltrates, I will consider adding a furosemide infusion. I would prefer this as opposed to periodic bolus doses of furosemide given her ongoing shock. (4) Peripheral arterial disease Status: Chronic Assessment & Plan: She most likely also has extensive peripheral vascular disease as noted on her previous cardiac catheterization. We will continue aspirin and high-dose statin medication. This will also need to be addressed once she recovers from the acute noncardiac illness. (5) Septic shock Status: Acute Assessment & Plan: This is being managed by the hospitalist and eICU. Her norepinephrine has been changed to vasopressin. She is also receiving antibiotics. (6) Acute kidney injury Assessment & Plan: Her creatinine was elevated at the time of admission. This has now improved. This would not be a contraindication to treating her with SHEILA inhibitor or ARB once her blood pressure improves. (7) Adnexal mass Status: Acute Assessment & Plan: We will continue to hold clopidogrel until she has a biopsy of this mass. Aspirin should not be a contraindication to a biopsy. (8) Type 2 diabetes mellitus with complication Assessment & Plan: This is being managed by the hospitalist. (9) Cigarette smoker Status: Chronic Assessment & Plan: She needs to quit smoking. She has been counseled about this on several occasions. JACQUELYN OSORIO JR, MD March 25, 2022 18:47
[2022-03-26] MEDS: NOREPINEPHRINE 8 MG/250 ML 250 ML IV SCH ×5 (00:22→22:22)
[2022-03-26] MEDS: RT-ALBUTEROL/IPRATROPIUM 3 ML (DUONEB) VIAL INH SCH ×6 (03:37→22:33)
[2022-03-26 04:07] LABS: ABG BASE EXCESS -3.6 MMOL/L (-2.5-2.5); ABG OXYGEN SATURATION 96 % (94-100); ABG PCO2 34 MMHG (35-45); ABG PO2 83 MMHG (79-93); ABG TCO2 21.7 MMOL/L (21.0-31.0)
[2022-03-26 04:08] LABS: INSPIRED O2 NOT INDICATED; PATIENT TEMP 36.2; VENTILATOR NO
[2022-03-26] MEDS: ENOXAPARIN 40 MG/0.4 ML (LOVENOX) SYR SC SCH (04:44)
[2022-03-26 05:08] LABS: BASOPHILS % (AUTO) 0 % (0-10); EOSINOPHILS # (AUTO) 0.1 10^3/uL (0.0-0.3); EOSINOPHILS % (AUTO) 1 % (0-10); HEMATOCRIT 37 % (35-52); LYMPHOCYTES # (AUTO) 0.7 10^3/uL (1.0-4.0); LYMPHOCYTES % (AUTO) 7 % (12-44); MEAN CORPUSCULAR HEMOGLOBIN 30 pg (25-34); MEAN CORPUSCULAR HGB CONC 32 g/dL (32-36); MEAN CORPUSCULAR VOLUME 93 fL (80-99); MEAN PLATELET VOLUME 10.5 fL (9.0-12.2); MONOCYTES # (AUTO) 0.6 10^3/uL (0.0-1.0); MONOCYTES % (AUTO) 7 % (0-12); NEUTROPHILS # (AUTO) 8.4 10^3/uL (1.8-7.8); NEUTROPHILS % (AUTO) 84 % (42-75); PLATELET COUNT 252 10^3/uL (130-400); WHITE BLOOD COUNT 9.9 10^3/uL (4.3-11.0)
[2022-03-26 05:22] LABS: ALBUMIN 2.5 GM/DL (3.2-4.5)
[2022-03-26 05:23] LABS: CALCIUM 9.4 MG/DL (8.5-10.1)
[2022-03-26 05:25] LABS: TOTAL PROTEIN 6.3 GM/DL (6.4-8.2)
[2022-03-26 05:26] LABS: BILIRUBIN,TOTAL 0.8 MG/DL (0.1-1.0)
[2022-03-26 05:28] LABS: CREATININE SERUM 0.7 MG/DL (0.60-1.30)
[2022-03-26 05:31] LABS: MAGNESIUM 1.7 MG/DL (1.6-2.4)
[2022-03-26] MEDS: POTASSIUM CL 10MEQ/50ML IVPB 50 ML IV SCH (06:07)
[2022-03-26] MEDS: VASOPRESSIN INJECTION 20 UNIT in NS (IVPB) 100 ML IV SCH ×2 (06:07→16:12)
[2022-03-26] MEDS: inSUlin ASPART (NovoLOG) 1 UNIT/0.01 ML (CHARGE PER UNIT) SC SCH ×4 (06:08→22:22)
[2022-03-26] MEDS: KCL 20 MEQ TAB (K-DUR) PO SCH (06:08)
[2022-03-26] MEDS: MAGNESIUM 1 GM/100 ML IVPB 100 ML IV SCH ×3 (06:08→07:54)
--- NOTE | 2022-03-26 09:34 | Cardiology Progress Note ---
Progress Note-Cardiology Events since last exam Date Seen by Provider: March 26, 2022 Time Seen by Provider: 09:32 Events since last exam I am following her due to non-ST elevation myocardial infarction in the setting of severe three-vessel coronary artery disease and cardiomyopathy. She remains in shock, presumably septic shock. She had initially been on norepinephrine infusion then vasopressin and now back to norepinephrine. She feels as though her breathing continues to improve. She denies chest pain, palpitations, syncope, or ankle edema. Certain portions of this document may have been dictated utilizing voice recognition technology. Inherent to this technology, typographical and grammatical errors may exist. As much as I am diligent to identify and correct these mistakes, some errors may remain in the document. Vitals Last set of Vitals Signs Vital Signs 03/25/22 03/26/22 03/26/22 03/26/22 03/26/22 08:00 14:00 16:00 16:02 16:12 Temp 36.1 Pulse 105 Resp 15 B/P (MAP) 112/80 Pulse Ox 93 O2 Delivery Nasal Cannula O2 Flow Rate 1.00 FiO2 50 Labs Labs Laboratory Tests 03/26/22 05:00 Exam Vital Signs Vital Signs Date Time Temp Pulse Resp B/P (MAP) Pulse Ox O2 Delivery O2 Flow Rate FiO2 03/26/22 16:12 105 112/80 03/26/22 16:02 36.1 03/26/22 16:00 93 Nasal Cannula 1.00 03/26/22 14:00 15 03/25/22 08:00 50 Physical Exam General: Alert. No acute distress. She is on oxygen by nasal cannula. She appears older than her stated age. Eye: No xanthelasma. HENT: Normocephalic. Neck: Jugular venous pressure does not appear elevated. Respiratory: Lungs have scattered rhonchi. Respirations are non-labored. Breath sounds are equal. Symmetrical chest wall expansion. Cardiovascular: Normal rate. Regular rhythm. No murmur. No gallop. No edema. Gastrointestinal: Soft. Normal bowel sounds. Skin: Warm. Dry. Neurologic: Alert and oriented to person, place, time. Cranial nerves 3-11 grossly intact. Psychiatric: Cooperative. Appropriate mood & affect. Labs Laboratory Tests Test 03/25/22 20:37 03/26/22 04:07 03/26/22 05:00 03/26/22 10:23 Range/Units Glucometer 223 H 256 H 70-110 MG/DL Blood Gas Puncture Site NOT INDICATED Blood Gas Patient Temperature 36.2 Arterial Blood pH 7.40 7.37-7.43 Arterial Blood Partial Pressure CO2 34 L 35-45 MMHG Arterial Blood Partial Pressure O2 83 79-93 MMHG Arterial Blood HCO3 21 L 23-27 MMOL/L Arterial Blood Total CO2 21.7 21.0-31.0 MMOL/L Arterial Blood Oxygen Saturation 96 94-100 % Arterial Blood Base Excess -3.6 L -2.5-2.5 MMOL/L Hayden Test NA Blood Gas Ventilator Setting NO Blood Gas Inspired Oxygen NOT INDICATED White Blood Count 9.9 4.3-11.0 10^3/uL Red Blood Count 4.01 3.80-5.11 10^6/uL Hemoglobin 12.0 11.5-16.0 g/dL Hematocrit 37 35-52 % Mean Corpuscular Volume 93 80-99 fL Mean Corpuscular Hemoglobin 30 25-34 pg Mean Corpuscular Hemoglobin Concent 32 32-36 g/dL Red Cell Distribution Width 16.4 H 10.0-14.5 % Platelet Count 252 130-400 10^3/uL Mean Platelet Volume 10.5 9.0-12.2 fL Immature Granulocyte % (Auto) 1 % Neutrophils (%) (Auto) 84 H 42-75 % Lymphocytes (%) (Auto) 7 L 12-44 % Monocytes (%) (Auto) 7 0-12 % Eosinophils (%) (Auto) 1 0-10 % Basophils (%) (Auto) 0 0-10 % Neutrophils # (Auto) 8.4 H 1.8-7.8 10^3/uL Lymphocytes # (Auto) 0.7 L 1.0-4.0 10^3/uL Monocytes # (Auto) 0.6 0.0-1.0 10^3/uL Eosinophils # (Auto) 0.1 0.0-0.3 10^3/uL Basophils # (Auto) 0.0 0.0-0.1 10^3/uL Immature Granulocyte # (Auto) 0.1 0.0-0.1 10^3/uL Sodium Level 140 135-145 MMOL/L Potassium Level 4.0 3.6-5.0 MMOL/L Chloride Level 107 98-107 MMOL/L Carbon Dioxide Level 17 L 21-32 MMOL/L Anion Gap 16 H 5-14 MMOL/L Blood Urea Nitrogen 18 7-18 MG/DL Creatinine 0.70 0.60-1.30 MG/DL Estimat Glomerular Filtration Rate 100 BUN/Creatinine Ratio 26 Glucose Level 221 H 70-105 MG/DL Calcium Level 9.4 8.5-10.1 MG/DL Corrected Calcium 10.6 H 8.5-10.1 MG/DL Phosphorus Level 3.0 2.3-4.7 MG/DL Magnesium Level 1.7 1.6-2.4 MG/DL Total Bilirubin 0.8 0.1-1.0 MG/DL Aspartate Amino Transf (AST/SGOT) 20 5-34 U/L Alanine Aminotransferase (ALT/SGPT) 15 0-55 U/L Alkaline Phosphatase 121 40-136 U/L Total Protein 6.3 L 6.4-8.2 GM/DL Albumin 2.5 L 3.2-4.5 GM/DL Test 03/26/22 16:04 Range/Units Glucometer 283 H 70-110 MG/DL Diagnosis/Problems Diagnosis/Problems (1) Non-ST elevation myocardial infarction (NSTEMI), initial care episode Assessment & Plan: She appears to have suffered another non-ST elevation myocardial infarction during this admission. She has known severe three-vessel coronary artery disease. She had been seen by cardiothoracic surgery at [facility] and by report, they did not think she was a good surgical candidate. The plan was for high risk percutaneous coronary intervention but then the patient left AGAINST MEDICAL ADVICE before this could be performed. This was all a few months ago. She is on aspirin and high-dose statin medication. Once we get her off vasoactive medications, we can restart beta-liang. Assuming she recovers from this acute, other noncardiac illness, then we will eventually need to have a discussion about moving forward with coronary revascularization. (2) Ischemic cardiomyopathy Status: Chronic Assessment & Plan: She has moderate left ventricular systolic dysfunction. Metoprolol succinate has been resumed but as above, is on hold until she is off vasopressors. Once her blood pressures are improved, we can also try to add an SHEILA inhibitor. (3) Septic shock Status: Acute Assessment & Plan: This is being managed by the hospitalist and eICU. She is now on just norepinephrine after stopping vasopressin on 03/25. She is also receiving antibiotics. I started her on low-dose midodrine to see if we can get her off of the intravenous vasoactive drugs and her blood pressure improved somewhat but she still cannot seem to get off norepinephrine. I will increase the dose of midodrine. We can always back this down in the future if she becomes hypertensive. (4) Chronic HFrEF (heart failure with reduced ejection fraction) Assessment & Plan: Although her BNP level was elevated, this was in the setting of sepsis and acute kidney injury. We will continue guideline directed medical therapy as tolerated by her renal function and blood pressure. Her chest x-ray from 03/26 appears to be getting worse, I will start a furosemide infusion. I would prefer this as opposed to periodic bolus doses of furosemide given her ongoing shock. (5) Peripheral arterial disease Status: Chronic Assessment & Plan: She most likely also has extensive peripheral vascular disease as noted on her previous cardiac catheterization. We will continue aspirin and high-dose statin medication. This will also need to be addressed once she recovers from the acute noncardiac illness. (6) Acute kidney injury Assessment & Plan: Her creatinine was elevated at the time of admission. This has now improved. This would not be a contraindication to treating her with SHEILA inhibitor or ARB once her blood pressure improves. (7) Adnexal mass Status: Acute Assessment & Plan: We will continue to hold clopidogrel until she has a biopsy of this mass. Aspirin should not be a contraindication to a biopsy. (8) Type 2 diabetes mellitus with complication Assessment & Plan: This is being managed by the hospitalist. (9) Cigarette smoker Status: Chronic Assessment & Plan: She needs to quit smoking. She has been counseled about this on several occasions. JACQUELYN OSORIO JR, MD March 26, 2022 09:34
[2022-03-26] MEDS: ASPIRIN E.C. 81 MG (ECOTRIN) TAB PO SCH (09:45)
[2022-03-26] MEDS: PANTOPRAZOLE 40 MG (PROTONIX) VIAL IV SCH (09:46)
[2022-03-26] MEDS: MIDODRINE 10 MG (PROAMATINE) TAB PO SCH ×3 (09:46→22:22)
--- NOTE | 2022-03-26 10:49 | Physical Therapy Evaluation ---
PT Evaluation-General Medical Diagnosis Admission Date March 20, 2022 at 02:35 Medical Diagnosis: sepsis/pneumonia Onset Date: March 20, 2022 Therapy Diagnosis Therapy Diagnosis: debility/weakness Height/Weight Weight (Pounds): 146 Precautions Precautions/Isolations: Fall Prevention, Standard Precautions, Pressure Ulcer Referral Physician: Buddy Reason for Referral: Evaluation/Treatment Medical History Pertinent Medical History: CABG, CAD, DM, HTN, PVD, Renal Insufficiency Current History EMS secondary to SOA, fever and diarrhea Reviewed History: Yes Social History Home: Single Level Current Living Status: Other Family Prior Prior Level of Function SCALE: Activities may be completed with or without assistive devices. 0-Orkakhunms-qtpahvb completes the activity by him/herself with no assistance from a helper. 5-Set-up or Clean-up Assistance-helper sets up or cleans up; patient completes activity. [place] assists only prior to or following the activity. 4-Supervision or Touching Assistance-helper provides verbal cues and/or touching/steadying and/or contact guard assistance as patient completes activity. Assistance may be provided throughout the activity or intermittently. 3-Partial/Moderate Assistance-helper does LESS THAN HALF the effort. [place] lifts, holds or supports trunk or limbs, but provides less than half the effort. 2-Substantial/Maximal Assistance-helper does MORE THAN HALF the effort. [place] lifts or holds trunk or limbs and provides more than half the effort. 5-Ujiqaqvqo-aquwey does ALL the effort. Patient does none of the effort to complete the activity. Or, the assistance of 2 or more helpers is required for the patient to complete the activity. If activity was not attempted, code reason: 7-Patient Refused. 9-Not Applicable-not attempted and the patient did not perform the activity before the current illness, exacerbation or injury. 10-Not Attempted due to Environmental Limitations-(lack of equipment, weather restraints, etc.). 88-Not Attempted due to Medical Conditions or Safety Concerns. Bed Mobility: 6 Transfers (B,C,W/C): 6 Gait: 6 Indoor Mobility (Ambulation): Independent Prior Devices Use: None PT Evaluation-Current Subjective Patient very lethargic. Agrees to PT. Objective Patient Orientation: Person Attachments: Oxygen, Lang Catheter, IV ROM/Strength ROM Lower Extremities bilateral LE WFL Strength Lower Extremities 2-/5 grossly bilateral LE Integumentary/Posture Bowel Incontinence: Yes Bladder Incontinence: Lang Cath Neuromuscular (Tone, Coordination, Reflexes) noted bilateral LE atrophy Sensory Vision: Functional Hearing: Functional Sensation Right Lower Extremit: Impaired Sensation Left Lower Extremity: Impaired Transfers Roll Left to Right (QC): 1 Sit to Lying (QC): 1 Lying to Sitting/Side of Bed(Q: 1 dependent of 2 with all bed mobility Gait Does the Patient Walk?: No and Walking Goal IS indicated Balance Sitting Static: Poor Assessment/Needs Patient currently not safe for OOB activity. Patient displays severe weakness/debility. Bilateral LE PROM with encouragement to perform AAROM with minimal activity. Patient repositioned in bed in chair position. Rehab Potential: Guarded PT Battalion Chief Goals Battalion Chief Goals PT Battalion Chief Goals Time Frame: Apr 24, 2022 Roll Left & Right (QC): 4 Sit to Lying (QC): 4 Lying-Sitting on Side/Bed(QC): 4 Sit to Stand (QC): 4 Chair/Wms-ii-Zwgsc Xfer(QC): 4 Toilet Transfer (QC): 4 Walk 10 feet (QC): 2 PT Plan Problem List Problem List: Activity Tolerance, Functional Strength, Safety, Balance, Gait, Transfer, Bed Mobility Treatment/Plan Treatment Plan: Continue Plan of Care Treatment Plan: Bed Mobility, Education, Functional Activity Roya, Functional Strength, Gait, Safety, Therapeutic Exercise, Transfers Treatment Duration: Apr 24, 2022 Frequency: 6 times per week Estimated Hrs Per Day: .25 hour per day Patient and/or Family Agrees t: Yes Time/GCodes Time In: 1030 Time Out: 1044 Total Billed Treatment Time: 14 Total Billed Treatment 1 visit [facility] 14 min SORAYA PICKARD PT March 26, 2022 10:49
--- NOTE | 2022-03-26 11:51 | Tele-ICU Progress Note ---
Subjective Date Seen by a Provider: March 26, 2022 Time Seen by a Provider: 11:51 Subjective/Events-last exam (Tele-ICU Physician , Progress Note ) Available chart/ vitals / labs / Images reviewed Video assessment done using teleICU camera, rest of exam as per RN Discussed with RN , EXAM PER RN Events overnight : tachycardia, started on n BiPAP 12/6 /50% Afebrile FiO2 - 50% I/O = neg Drips: Pressors: levo vaso Consultants: barbie grace Hospital course: (03/19) 61/F admitted with severe sepsis possible source GI or pneumonia. //ivf and bolus for hypotension--Levo. 03/25-levo 0.05 vaso , BiPAP 12/6 /50% 03/26 = 3l nc A/P Sepsis, shock - weaning pressors, - levo 0.04 vaso, costisol 16 on 03/24 mididrine 03/26 Acute resp failure 03/24 - was on BIPAP -> NC after lasix x1 03/25 - BiPAP 12/ /50% --> 03/26 NC 3 l PNA - finished abx 03/25 NSTEMI./ svere 3 vessel CAD / ICM / CHF - as per cards - EF 35 to 40%, grade 2 diastolic dysfunction, mild mitral regurgitation.PA pressure around 20 mmHg -clopidogrel on hold until she has a biopsy MERCEDES - improved - resolved DM ii - ISS Diarrhea - resolved - U/UP negative Right adnexal mass 5x7 cm , multiple pulm nodulees, concerning for malignancy - w/up as per PCP , bx to be done when more stable - as per Sx consult Left subclavian artery stenosis PAD Lines : r IJ 03/21(Central Line Necessity Reviewed) Lang: OG: Nutrition: po Analgesia: Anxiety/ delirium VTE Prophylaxis: shantanu 40 Stress Ulcer Prophylaxis: po Plans in collaboration with bedside consultants and IM MDs. Discussed with RN to reach out if any questions or concerns A total of 31 minutes of critical care time was devoted to this patient today, required to treat and/or prevent further deterioration of critical care condition ( as above) . Sepsis Event Evaluation Height, Weight, BMI Height: '" Weight: 146lbs. oz. 66.099101rb; 24.18 BMI Method:Stated Focused Exam Lactate Level 03/24/22 11:45: Lactic Acid Level 1.04 Time of Focused Exam: 01:00 Exam Exam Patient acknowledged, consented, and participated in this virtual visit which was conducted using real time audio/video Vital Signs Date Time Temp Pulse Resp B/P (MAP) Pulse Ox O2 Delivery O2 Flow Rate FiO2 03/26/22 11:03 Nasal Cannula 1.00 03/26/22 11:00 106 25 109/84 96 Nasal Cannula 1.00 03/26/22 10:54 97 Nasal Cannula 3.00 03/26/22 10:00 105 19 108/83 96 Nasal Cannula 3.00 03/26/22 09:44 105 106/82 03/26/22 09:00 105 106/82 98 Nasal Cannula 3.00 03/26/22 08:00 106 104/80 98 Nasal Cannula 3.00 03/26/22 07:35 35.3 03/26/22 07:00 106 110/83 98 Nasal Cannula 3.00 03/26/22 07:00 106 03/26/22 06:58 98 Nasal Cannula 3.00 03/26/22 06:07 108 112/84 03/26/22 06:00 107 105/83 96 Nasal Cannula 3.00 03/26/22 05:00 107 100/77 97 Nasal Cannula 3.00 03/26/22 04:44 108 112/84 03/26/22 04:00 36.2 03/26/22 04:00 109 113/91 94 Nasal Cannula 3.00 03/26/22 04:00 95 Nasal Cannula 3.00 03/26/22 03:40 98 Nasal Cannula 3.00 03/26/22 03:00 107 100/79 98 Nasal Cannula 3.00 03/26/22 02:00 107 114/88 97 Nasal Cannula 3.00 03/26/22 01:00 108 03/26/22 01:00 108 110/89 96 Nasal Cannula 3.00 03/26/22 00:36 36.2 03/26/22 00:22 111 112/84 03/26/22 00:00 95 Nasal Cannula 3.00 03/26/22 00:00 111 112/84 96 Nasal Cannula 3.00 03/25/22 23:53 98 Nasal Cannula 3.00 03/25/22 23:00 109 114/86 96 Nasal Cannula 3.00 03/25/22 22:26 36.6 03/25/22 22:00 109 28 108/86 96 Nasal Cannula 3.00 03/25/22 22:00 03/25/22 21:00 106 102/78 97 Nasal Cannula 3.00 03/25/22 20:04 95 Nasal Cannula 3.00 03/25/22 20:04 108 122/83 03/25/22 20:01 98 Nasal Cannula 3.00 03/25/22 20:00 03/25/22 20:00 108 32 99/79 95 Nasal Cannula 3.00 03/25/22 20:00 95 Nasal Cannula 3.00 03/25/22 19:30 36.3 03/25/22 19:00 108 03/25/22 19:00 108 24 107/82 95 Nasal Cannula 3.00 03/25/22 19:00 03/25/22 18:42 122/83 03/25/22 18:00 110 43 116/88 95 Nasal Cannula 3.00 03/25/22 17:00 109 47 106/85 95 Nasal Cannula 3.00 03/25/22 16:00 36.4 03/25/22 16:00 108 21 108/80 97 Nasal Cannula 3.00 03/25/22 16:00 95 Nasal Cannula 3.00 03/25/22 15:19 97 Nasal Cannula 3.00 03/25/22 15:00 110 34 105/82 97 Nasal Cannula 3.00 03/25/22 14:00 113 38 115/83 98 03/25/22 13:36 114 114/94 03/25/22 13:00 113 40 112/89 98 03/25/22 13:00 113 03/25/22 12:00 96 Nasal Cannula 3.00 03/25/22 12:00 36.0 03/25/22 12:00 114 40 114/94 98 Nasal Cannula 3.00 I & O 03/26/22 07:00 Intake Total 410 ml Output Total 1100 ml Balance -690 ml Height & Weight Height: '" Weight: 146lbs. oz. 66.230262jn; 24.18 BMI Method:Stated General Appearance: Chronically ill, Cachetic, Other (PT IS MILDLY DYSPNEIC AT REST, AND LETHARGIC; PT IS INCONTINENT OF LARGE SOFT FORMED STOOL, NORMAL BROWN COLOR, WELL A MASSIVE AMOUNT OF DRIED SOFT STOOL -SPECIMEN SENT TO LAB., PT STATES SHE DID NOT KNOW SHE HAD BEEN INCONTINENT OF STOOL. ) HEENT: PERRL/EOMI, Other (ORAL MUCOSA EXTREMELY DRY) Neck: Normal Inspection, Non Tender Respiratory: Accessory Muscle Use, Decreased Breath Sounds Cardiovascular: No Edema, Tachycardia Capillary Refill: Less Than 3 Seconds Gastrointestinal: non tender, soft Extremity: Normal Capillary Refill (BUT PULSES ARE NOT PALPABLE. FEET ARE PINK AND WARM. ), No Pedal Edema Neurologic/Psychiatric: Alert, Oriented x3 (BUT VERY POOR MEMORY. ), No Motor/Sensory Deficits, pl sql programmer II-XII Norm as Tested, Other (LETHARGIC) Skin: Normal Color, Warm/Dry, Other (POOR TURGOR; NO ULCERATIONS OR SKIN BREAKDOWN NOTED BUT LEROY AREA IS DIFFUSELY INFLAMED DUE TO LAYING IN HER FECES AND URINE AT HOME FOR THE LAST 2 DAYS) Results Lab Laboratory Tests 03/25/22 02:15 03/25/22 09:15 03/26/22 05:00 Assessment/Plan Assessment/Plan ` WISAM HEWITT MD March 26, 2022 11:51
--- NOTE | 2022-03-26 12:50 | Progress Note ---
Subjective Subjective/Events-last exam Pt states she is tired, but otherwise is doing okay. Focused Exam Lactate Level 03/24/22 11:45: Lactic Acid Level 1.04 Time of Focused Exam: 01:00 Objective Exam Last Set of Vital Signs Vital Signs Date Time Temp Pulse Resp B/P (MAP) Pulse Ox O2 Delivery O2 Flow Rate FiO2 03/26/22 11:03 Nasal Cannula 1.00 03/26/22 11:00 106 25 109/84 96 03/26/22 07:35 35.3 03/25/22 08:00 50 Capillary Refill : Less Than 3 Seconds I&O Intake and Output 03/26/22 00:00 Intake Total 760 ml Output Total 1200 ml Balance -440 ml Intake Oral 460 ml IV Total 300 ml Output Urine Total 1200 ml General: Other (fatigued appearing, but alert) Lungs: Other (ronchi) Heart: Regular Rate Abdomen: Normal Bowel Sounds, Soft Extremities: No Edema Neuro: Normal Speech Psych/Mental Status: Mood NL Results/Procedures Lab Laboratory Tests 03/25/22 15:49: Glucometer 210H 03/25/22 20:37: Glucometer 223H 03/26/22 04:07: Blood Gas Puncture Site NOT INDICATED, Blood Gas Patient Temperature 36.2, Arterial Blood pH 7.40, Arterial Blood Partial Pressure CO2 34L, Arterial Blood Partial Pressure O2 83, Arterial Blood HCO3 21L, Arterial Blood Total CO2 21.7, Arterial Blood Oxygen Saturation 96, Arterial Blood Base Excess -3.6L, Hayden Test NA, Blood Gas Ventilator Setting NO, Blood Gas Inspired Oxygen NOT INDICATED 03/26/22 05:00: White Blood Count 9.9, Red Blood Count 4.01, Hemoglobin 12.0, Hematocrit 37, Mean Corpuscular Volume 93, Mean Corpuscular Hemoglobin 30, Mean Corpuscular Hemoglobin Concent 32, Red Cell Distribution Width 16.4H, Platelet Count 252, Mean Platelet Volume 10.5, Immature Granulocyte % (Auto) 1, Neutrophils (%) (Auto) 84H, Lymphocytes (%) (Auto) 7L, Monocytes (%) (Auto) 7, Eosinophils (%) (Auto) 1, Basophils (%) (Auto) 0, Neutrophils # (Auto) 8.4H, Lymphocytes # (Auto) 0.7L, Monocytes # (Auto) 0.6, Eosinophils # (Auto) 0.1, Basophils # (Auto) 0.0, Immature Granulocyte # (Auto) 0.1, Sodium Level 140, Potassium Level 4.0, Chloride Level 107, Carbon Dioxide Level 17L, Anion Gap 16H, Blood Urea Nitrogen 18, Creatinine 0.70, Estimat Glomerular Filtration Rate 100, BUN/Creatinine Ratio 26, Glucose Level 221H, Calcium Level 9.4, Corrected Calcium 10.6H, Phosphorus Level 3.0, Magnesium Level 1.7, Total Bilirubin 0.8, Aspartate Amino Transf (AST/SGOT) 20, Alanine Aminotransferase (ALT/SGPT) 15, Alkaline Phosphatase 121, Total Protein 6.3L, Albumin 2.5L 03/26/22 10:23: Glucometer 256H Microbiology 03/20/22 Blood Culture - Final, Complete No growth 03/20/22 MRSA Screen - Final, Complete MRSA not isolated 03/20/22 Urine Culture - Final, Complete NO GROWTH 03/20/22 Fecal Leukocyte Stain - Final, Complete 03/20/22 C. difficile GDH Antigen & Toxins - Final, Complete 03/20/22 Stool Culture - Final, Complete Assessment/Plan Assessment/Plan (1) Septic shock Status: Acute Assessment & Plan: Uncertain etiology, initially with diarrhea and fever. C diff neg. Urine culture no growth. Blood cultures no growth to date. Possible pneumonia, but CT chest has had similar findings for chronic time period. Continue cefepime. Norepinephrine and LR. Appreciate Tsering ICU assistance. 03/24- holding IVF and giving lasix this am due to increasing swelling and worsening hypoxia overnight. Continue cefepime. 03/25- requiring both vasopressin and norepinephrine overnight, but vasopressin h eld again this am. Remains on cefepime. 03/26- cefepime completed, on norepinephrine alone still, new meds per Cardiology and attempting to wean norepi. (2) Pneumonia Status: Acute Assessment & Plan: Bilateral multifocal, concerning for possible underlying malignancy, particularly as findings are not new and she has been on more than one course of antibiotics. Continue cefepime for now. s/p cefepime x 5 days Qualifiers: (3) Adnexal mass Status: Acute Assessment & Plan: Was scheduled for biopsy outpatient, but was unable to be done due to blood thinners, holding currently, but given severity of current illness, not likely able to get done currently. Discussed difficulty in prognostic planning without biopsy. (4) CAD (coronary artery disease) Status: Chronic Assessment & Plan: Severe multivessel disease both coronary and peripheral, holding antiplatelets in hopes of biopsy shortly. (5) NSTEMI (non-ST elevated myocardial infarction) Status: Acute Assessment & Plan: Mild troponin elevation, appreciate Cardiology recommendations. Known severe CAD and multiple other vascular occlusions, was referred for CABG but had possible stroke and was deferred, has outpatient appt with Dr. Damon. Holding antiplatelets due to need for adnexal mass biopsy. (6) Cardiomyopathy Status: Chronic Qualifiers: Qualified Codes: I25.5 - Ischemic cardiomyopathy (7) Tobacco abuse Status: Chronic (8) HLD (hyperlipidemia) Status: Chronic (9) T2DM (type 2 diabetes mellitus) Status: Chronic Assessment & Plan: Sliding scale insulin protocol Qualifiers: Qualified Codes: E11.69 - Type 2 diabetes mellitus with other specified complication (10) HFrEF (heart failure with reduced ejection fraction) Status: Chronic Assessment & Plan: EF 30-35% 03/20/22. Appreciate Cardiology recommendations. 03/24 lasix 40 mg IV today, monitor BP closely 03/25- had low bp after lasix yesterday, but BNP is significantly up and CXR with worsening appearance, will defer to Tsering ICU and Cardiology on repeat lasix (11) Lactic acidosis Status: Resolved (12) Peripheral arterial disease Status: Chronic (13) Acute renal failure Status: Resolved (14) Carotid artery disease Status: Chronic (15) Acute respiratory failure Status: Acute Assessment & Plan: 03/25- Secondary to pneumonia, sepsis, possible underlying pulmonary mets. Now frequently requiring bipap. Discussed her tenuous status, she wants to stay full code and to be intubated if needed. Qualifiers: Qualified Codes: J96.01 - Acute respiratory failure with hypoxia (16) DVT prophylaxis Status: Acute Assessment & Plan: Enoxaparin MATTHEW WEATHERS MD March 26, 2022 12:50
[2022-03-26] MEDS: guaiFENesin/DM (ROBITUSSIN DM) 10 ML UDC PO PRN ×2 (13:36→17:59)
--- NOTE | 2022-03-26 13:58 | Diagnostic Imaging Report ---
INDICATION: Shortness of air. TIME OF EXAM: 3:53 a.m. COMPARISON: Correlation is made with prior chest from 03/24/2022. FINDINGS: Right-sided line has tip overlying the SVC. The heart is enlarged. There are bilateral predominantly basilar infiltrates which appear increased since two days earlier. There appears to be a left effusion as well. No pneumothorax is identified. IMPRESSION: Increasing bibasilar infiltrates and left effusion when compared with exam two days earlier. Dictated by: Dictated on workstation # [id number]
[2022-03-26] MEDS: HYDROcodone/APAP 5 MG/325 MG (LORTAB) TAB PO PRN (16:20)
[2022-03-26] MEDS: FUROSEMIDE INJECTION 120 MG in D5W 100 ML IVPB 100 ML IV SCH (17:43)
[2022-03-27] MEDS: NOREPINEPHRINE 8 MG/250 ML 250 ML IV SCH ×4 (03:51→21:50)
[2022-03-27 05:08] LABS: BASOPHILS % (AUTO) 0 % (0-10); EOSINOPHILS # (AUTO) 0.1 10^3/uL (0.0-0.3); EOSINOPHILS % (AUTO) 1 % (0-10); HEMATOCRIT 38 % (35-52); HEMOGLOBIN 12.6 g/dL (11.5-16.0); LYMPHOCYTES # (AUTO) 0.7 10^3/uL (1.0-4.0); LYMPHOCYTES % (AUTO) 6 % (12-44); MEAN CORPUSCULAR HEMOGLOBIN 30 pg (25-34); MEAN CORPUSCULAR HGB CONC 33 g/dL (32-36); MEAN CORPUSCULAR VOLUME 92 fL (80-99); MEAN PLATELET VOLUME 10.7 fL (9.0-12.2); MONOCYTES # (AUTO) 0.6 10^3/uL (0.0-1.0); MONOCYTES % (AUTO) 6 % (0-12); NEUTROPHILS # (AUTO) 8.9 10^3/uL (1.8-7.8); NEUTROPHILS % (AUTO) 86 % (42-75); PLATELET COUNT 256 10^3/uL (130-400); WHITE BLOOD COUNT 10.3 10^3/uL (4.3-11.0)
[2022-03-27 05:14] LABS: ALBUMIN 2.5 GM/DL (3.2-4.5); POTASSIUM 3.4 MMOL/L (3.6-5.0)
[2022-03-27 05:16] LABS: CALCIUM 9.5 MG/DL (8.5-10.1)
[2022-03-27 05:17] LABS: TOTAL PROTEIN 6.7 GM/DL (6.4-8.2)
[2022-03-27 05:19] LABS: BILIRUBIN,TOTAL 0.7 MG/DL (0.1-1.0)
[2022-03-27 05:20] LABS: CREATININE SERUM 0.71 MG/DL (0.60-1.30); PHOSPHORUS 2.6 MG/DL (2.3-4.7)
[2022-03-27 05:24] LABS: MAGNESIUM 1.6 MG/DL (1.6-2.4)
[2022-03-27] MEDS: VASOPRESSIN INJECTION 20 UNIT in NS (IVPB) 100 ML IV SCH ×2 (06:02→14:13)
[2022-03-27] MEDS: ENOXAPARIN 40 MG/0.4 ML (LOVENOX) SYR SC SCH (06:02)
[2022-03-27] MEDS: MAGNESIUM 1 GM/100 ML IVPB 100 ML IV SCH ×3 (06:02→08:09)
[2022-03-27] MEDS: POTASSIUM CL 10MEQ/50ML IVPB 50 ML IV SCH (06:02)
[2022-03-27] MEDS: KCL 20 MEQ TAB (K-DUR) PO SCH (06:03)
[2022-03-27] MEDS: inSUlin ASPART (NovoLOG) 1 UNIT/0.01 ML (CHARGE PER UNIT) SC SCH ×4 (06:03→20:42)
[2022-03-27] MEDS ORDERED: KCL 20 MEQ TAB (K-DUR) PO ONE (06:15)
--- NOTE | 2022-03-27 06:41 | Progress Note - Hospitalist ---
Subjective HPI/CC On Admission Date Seen by Provider: March 27, 2022 Time Seen by Provider: 10:00 PT ARRIVES VIA EMS FROM HOME--LIVES WITH HER SISTER AND [id number] WAS REPORTED TO EMS THAT PT HAS BEEN SICK FOR THE PAST FEW DAYS WITH FEVER AND DIARRHEA HAS NOT BEEN OUT OF BED FOR THE LAST 2 DAYS, PER EMS. TEMP IS 103.4 FOR EMS--PT UNAWARE OF FEVER BP 80'S/50'S, HR IN 140'S FOR EMS PT HAS COPD AND CONTINUES TO SMOKE. DOES NOT HAVE HOME O2 EMS REPORT THAT PT BECAME VERY SHORT OF BREATH VERY EASILY WITH MINIMAL EFFORT AT THE RESIDENCE. PT C/O PAIN TO LEFT RIBS FOR THE LAST WEEK. HURTS TO BREATHE OR MOVE STATES SHE DID FALL OVER A WEEK AGO, BUT HAS NOT SEEN ANYONE FOR THAT PROBLEM HAS A FREQUENT COUGH--PT STATES IS NORMAL FOR HER DENIES NAUSEA DENIES ABDOMINAL PAIN DOES NOT KNOW WHEN SHE LAST VOIDED DOES NOT KNOW WHEN SHE LAST ATE OR DRANK, BUT STATES SHE IS VERY THIRSTY NOW. CANNOT STATE WHY SHE HAS NOT BEEN EATING OR DRINKING. PT ALSO HAS HISTORY OF HTN, WELL CAD WITH STENTS IN 2009 PT ALSO HAS BEEN DX WITH DIABETES AND BEEN ON INSULIN IN THE PAST, BUT HAD QUIT TAKING IT 11 YEARS AGO PT WAS SEEN HERE 01/16/22--PT HAD NOT SEEN A DR IN AT LEAST 12 YEARS AT THAT TIME PT WAS ADMITTED AT THAT TIME WITH MULTIPLE PROBLEMS, INCLUDING SEVERE SEPSIS, UTI, CHF, PNEUMONIA, NSTEMI. 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 PT CANNOT STATE WHAT WAS DONE WHEN SHE WAS AT SHE STATES SHE HAS MEDICATION AT HOME, BUT DOES NOT KNOW WHAT MEDICATION SHE IS ON OR WHAT SHE TAKES IT FOR STATES SHE DOES NOT KNOW IF SHE TOOK HER MEDICATIONS TODAY OR NOT, OR WHEN SHE MIGHT HAVE LAST TAKEN ANY MEDICATION HAS NOT SOUGHT CARE UNTIL TONIGHT FOR THESE PROBLEMS STATES SHE "DOESN'T KNOW" WHY SHE DID NOT SEEK CARE PRIOR TO TONIGHT. Upon my arrival patient was somnolent would open up her eyes begin to answer question would trail off and she would fall back asleep. She did deny headache and denied pain. At baseline reportedly a poor historian. She had been scheduled for biopsy of a right adnexal mass suspicious for malignancy but did not stop her Plavix apparently was being rescheduled. She denied leg pain and there have been no reports of leg pain with known severe peripheral vascular disease. Subjective/Events-last exam Patient doing about the same Maintained on norepinephrine Reviewed meds and labs No pain reported Patient appears to be very end stage Review of Systems General: Fatigue, Malaise Pulmonary: Dyspnea Focused Exam Lactate Level Time of Focused Exam: 01:00 Objective Exam Vital Signs Vital Signs Date Time Temp Pulse Resp B/P (MAP) Pulse Ox O2 Delivery O2 Flow Rate FiO2 03/28/22 06:00 92 116/79 93 NIV Bilevel 40.00 03/28/22 05:00 33 03/27/22 15:33 36.1 03/27/22 09:00 21 Capillary Refill : Less Than 3 Seconds General Appearance: No Apparent Distress, Anxious, Chronically ill, Thin Respiratory: No Accessory Muscle Use, No Respiratory Distress, Decreased Breath Sounds Cardiovascular: Regular Rate, Rhythm Neurologic/Psychiatric: Alert, Oriented x3, Depressed Affect Results/Procedures Lab Laboratory Tests 03/28/22 04:50 Patient resulted labs reviewed. Assessment/Plan Assessment and Plan Assess & Plan/Chief Complaint (1) Septic shock Status: Acute Assessment & Plan: Uncertain etiology, initially with diarrhea and fever. C diff neg. Urine culture no growth. Blood cultures no growth to date. Possible pneumonia, but CT chest has had similar findings for chronic time period. Continue cefepime. Norepinephrine and LR. Appreciate [facility] ICU assistance. 03/24- holding IVF and giving lasix this am due to increasing swelling and worsening hypoxia overnight. Continue cefepime. 03/25- requiring both vasopressin and norepinephrine overnight, but vasopressin held again this am. Remains on cefepime. 03/26- cefepime completed, on norepinephrine alone still, new meds per Cardiology and attempting to wean norepi. 03/27patient continues to be maintained on norepinephrine (2) Pneumonia Status: Acute Assessment & Plan: Bilateral multifocal, concerning for possible underlying malignancy, particularly as findings are not new and she has been on more than one course of antibiotics. Continue cefepime for now. s/p cefepime x 5 days Qualifiers: (3) Adnexal mass Status: Acute Assessment & Plan: Was scheduled for biopsy outpatient, but was unable to be done due to blood thinners, holding currently, but given severity of current illness, not likely able to get done currently. Discussed difficulty in prognostic planning without biopsy. (4) CAD (coronary artery disease) Status: Chronic Assessment & Plan: Severe multivessel disease both coronary and peripheral, holding antiplatelets in hopes of biopsy shortly. (5) NSTEMI (non-ST elevated myocardial infarction) Status: Acute Assessment & Plan: Mild troponin elevation, appreciate Cardiology recommendations. Known severe CAD and multiple other vascular occlusions, was referred for CABG but had possible stroke and was deferred, has outpatient appt with Dr. Damon. Holding antiplatelets due to need for adnexal mass biopsy. (6) Cardiomyopathy Status: Chronic Qualifiers: Qualified Codes: I25.5 - Ischemic cardiomyopathy (7) Tobacco abuse Status: Chronic (8) HLD (hyperlipidemia) Status: Chronic (9) T2DM (type 2 diabetes mellitus) Status: Chronic Assessment & Plan: Sliding scale insulin protocol Qualifiers: Qualified Codes: E11.69 - Type 2 diabetes mellitus with other specified complication (10) HFrEF (heart failure with reduced ejection fraction) Status: Chronic Assessment & Plan: EF 30-35% 03/20/22. Appreciate Cardiology recommendations. 03/24 lasix 40 mg IV today, monitor BP closely 03/25- had low bp after lasix yesterday, but BNP is significantly up and CXR with worsening appearance, will defer to [facility] ICU and Cardiology on repeat lasix (11) Lactic acidosis Status: Resolved (12) Peripheral arterial disease Status: Chronic (13) Acute renal failure Status: Resolved (14) Carotid artery disease Status: Chronic (15) Acute respiratory failure Status: Acute Assessment & Plan: 03/25- Secondary to pneumonia, sepsis, possible underlying pulmonary mets. Now frequently requiring bipap. Discussed her tenuous status, she wants to stay full code and to be intubated if needed. Qualifiers: Qualified Codes: J96.01 - Acute respiratory failure with hypoxia (16) DVT prophylaxis Status: Acute Assessment & Plan: Enoxaparin Plan: Guarded prognosis poor Supportive care Critical Care Critically Ill Patient JORDANMISSY BURNHAM March 27, 2022 06:41
[2022-03-27] MEDS: RT-ALBUTEROL/IPRATROPIUM 3 ML (DUONEB) VIAL INH SCH ×4 (07:15→18:38)
[2022-03-27] MEDS: ASPIRIN E.C. 81 MG (ECOTRIN) TAB PO SCH (08:09)
[2022-03-27] MEDS: MIDODRINE 10 MG (PROAMATINE) TAB PO SCH ×3 (08:09→20:33)
[2022-03-27] MEDS: PANTOPRAZOLE 40 MG (PROTONIX) VIAL IV SCH (08:09)
--- NOTE | 2022-03-27 08:46 | Physical Therapy Daily Note ---
PT Daily Note-Current Subjective Pt in bed, agreeable to exercise with encouragement. States, "I just don't know" when asked to participate. Denies pain. Pt states, "Thank you so much for doing this" during treatment but with limited active participation despite cues. Mental Status Patient Orientation: Person, Place Attachments: Lang Catheter, IV Multiple lines Transfers SCALE: Activities may be completed with or without assistive devices. 5-Dsvrcdftoh-gkleasx completes the activity by him/herself with no assistance from a helper. 5-Set-up or Clean-up Assistance-helper sets up or cleans up; patient completes activity. [place] assists only prior to or following the activity. 4-Supervision or Touching Assistance-helper provides verbal cues and/or touching/steadying and/or contact guard assistance as patient completes activity. Assistance may be provided throughout the activity or intermittently. 3-Partial/Moderate Assistance-helper does LESS THAN HALF the effort. [place] lifts, holds or supports trunk or limbs, but provides less than half the effort. 2-Substantial/Maximal Assistance-helper does MORE THAN HALF the effort. [place] l ifts or holds trunk or limbs and provides more than half the effort. 9-[place] does ALL the effort. Patient does none of the effort to complete the activity. Or, the assistance of 2 or more helpers is required for the patient to complete the activity. If activity was not attempted, code reason: 7-Patient Refused. 9-Not Applicable-not attempted and the patient did not perform the activity before the current illness, exacerbation or injury. 10-Not Attempted due to Environmental Limitations-(lack of equipment, weather restraints, etc.). 88-Not Attempted due to Medical Conditions or Safety Concerns. Exercises Supine Ex: Ankle pumps, Heel Slides, Straight leg raise, Hip abd/add Supine Reps: 15 Completed reps P/AAROM with very limited active participation despite prompts. Attempted QS but Pt did not demonstrate active contraction despite VCS and tactile cues. Assessment Current Status: Poor Progress Pt with limited active participation. In bed with all needs met. O2 at 92% at rest. PT Alf Goals Alf Goals PT [place] Goals Time Frame: Apr 24, 2022 Roll Left & Right (QC): 4 Sit to Lying (QC): 4 Lying-Sitting on Side/Bed(QC): 4 Sit to Stand (QC): 4 Chair/Ljj-wj-Vzmve Xfer(QC): 4 Toilet Transfer (QC): 4 Walk 10 feet (QC): 2 PT Plan Problem List Problem List: Activity Tolerance, Functional Strength, Safety, Balance, Gait, Transfer, Bed Mobility Treatment/Plan Treatment Plan: Continue Plan of Care Treatment Plan: Bed Mobility, Education, Functional Activity Roya, Functional Strength, Gait, Safety, Therapeutic Exercise, Transfers Treatment Duration: Apr 24, 2022 Frequency: 6 times per week Estimated Hrs Per Day: .25 hour per day Patient and/or Family Agrees t: Yes Time/GCodes Time In: 822 Time Out: 837 Total Billed Treatment Time: 15 Total Billed Treatment 1, Ex x 15' MUNA VARGAS DPT March 27, 2022 08:46
[2022-03-27 09:00] VITALS: BP 115/83
--- NOTE | 2022-03-27 09:23 | Tele-ICU Progress Note ---
Progress Note video rounds completed 61 y/o admitted with sepsis shock possible secondary to PNA Complted course of Cefipime Still on vasopressors Cardiology following for NSTEMI PE: comfortable lying in bed BP 96/77 HR: 106 NSR O2 sat 99% afebrile WBC 10.3 BUN: 16 Creat: 0.71 On lasix drip PLAN: continue to treat for shock possibly secondaryto reduced EF and CO Cardiology following Focused Exam Lactate Level 03/24/22 11:45: Lactic Acid Level 1.04 Height, Weight, BMI Height: '" Weight: 146lbs. oz. 66.399149tv; 24.18 BMI Method:Stated Time of Focused Exam: 01:00 Laboratory Tests 03/27/22 04:50 Results Labs Labs Laboratory Tests 03/26/22 10:23: Glucometer 256H 03/26/22 16:04: Glucometer 283H 03/26/22 21:29: Glucometer 371H 03/27/22 04:50: White Blood Count 10.3, Red Blood Count 4.16, Hemoglobin 12.6, Hematocrit 38, Mean Corpuscular Volume 92, Mean Corpuscular Hemoglobin 30, Mean Corpuscular Hemoglobin Concent 33, Red Cell Distribution Width 16.2H, Platelet Count 256, Mean Platelet Volume 10.7, Immature Granulocyte % (Auto) 1, Neutrophils (%) (Auto) 86H, Lymphocytes (%) (Auto) 6L, Monocytes (%) (Auto) 6, Eosinophils (%) (Auto) 1, Basophils (%) (Auto) 0, Neutrophils # (Auto) 8.9H, Lymphocytes # (Auto) 0.7L, Monocytes # (Auto) 0.6, Eosinophils # (Auto) 0.1, Basophils # (Auto) 0.0, Immature Granulocyte # (Auto) 0.1, Sodium Level 140, Potassium Level 3.4L, Chloride Level 103, Carbon Dioxide Level 20L, Anion Gap 17H, Blood Urea Nitrogen 16, Creatinine 0.71, Estimat Glomerular Filtration Rate 98, BUN/Creatinine Ratio 23, Glucose Level 336H, Calcium Level 9.5, Corrected Calcium 10.7H, Phosphorus Level 2.6, Magnesium Level 1.6, Total Bilirubin 0.7, Aspartate Amino Transf (AST/SGOT) 25, Alanine Aminotransferase (ALT/SGPT) 17, Alkaline Phosphatase 117, Total Protein 6.7, Albumin 2.5L Microbiology 03/20/22 Blood Culture - Final, Complete No growth 03/20/22 MRSA Screen - Final, Complete MRSA not isolated 03/20/22 Urine Culture - Final, Complete NO GROWTH 03/20/22 Fecal Leukocyte Stain - Final, Complete 03/20/22 C. difficile GDH Antigen & Toxins - Final, Complete 03/20/22 Stool Culture - Final, Complete Results Results/Procedures Labs Laboratory Tests 03/26/22 05:00 03/27/22 04:50 Patient resulted labs reviewed. CHONG PALACIOS MD March 27, 2022 09:23
--- NOTE | 2022-03-27 09:31 | Diagnostic Imaging Report ---
CLINICAL INDICATIONS: Patient with shortness of breath. EXAM: Portable chest x-ray upright view. COMPARISON: Chest x-ray dated 03/26/2022. FINDINGS: There is stable consolidation involving left lung base and groundglass consolidation opacification involving left midlung field left lung base. There is slight improved aeration right lung base with residual mild patchy infiltrates. There is stable left pleural effusion and stable minimal right pleural effusion. There is no pneumothorax. Pulmonary vasculature and cardiac silhouettes within normal limits. Right IJ central line again seen in stable position. The remainder of this exam shows no significant interval change compared to the prior study of comparison. IMPRESSION: 1: Slight improved aeration right lung base with residual mild infiltrate remaining. 2: Stable consolidation left lung base left pleural effusion. 3: Stable minimal sized right pleural effusion. Dictated by: Dictated on workstation # [id number]
--- NOTE | 2022-03-27 10:13 | Cardiology Progress Note ---
Progress Note-Cardiology Events since last exam Date Seen by Provider: March 27, 2022 Time Seen by Provider: 10:09 Events since last exam I am following her due to severe three-vessel coronary artery disease now with a second non-ST elevation myocardial infarction within the past few months. She remains in the intensive care unit in shock. She remains on norepinephrine infusion. Despite this, she denies shortness of breath. She denies chest discomfort, palpitations, syncope, or ankle edema. Certain portions of this document may have been dictated utilizing voice recognition technology. Inherent to this technology, typographical and grammatical errors may exist. As much as I am diligent to identify and correct these mistakes, some errors may remain in the document. Vitals Last set of Vitals Signs Vital Signs 03/26/22 03/27/22 03/27/22 03/27/22 20:00 07:28 09:00 09:06 Temp 36.3 Pulse 108 Resp 22 B/P (MAP) 115/83 Pulse Ox 90 O2 Delivery Room Air O2 Flow Rate 0.00 FiO2 21 Labs Labs Laboratory Tests 03/27/22 04:50 Exam Vital Signs Vital Signs Date Time Temp Pulse Resp B/P (MAP) Pulse Ox O2 Delivery O2 Flow Rate FiO2 03/27/22 09:06 108 115/83 03/27/22 09:00 90 Room Air 03/27/22 09:00 36.3 21 03/27/22 07:28 0.00 03/26/22 20:00 22 Physical Exam General: Alert. No acute distress. She appears chronically ill and older than her stated age. Eye: No xanthelasma. HENT: Normocephalic. Neck: Jugular venous pressure does not appear elevated. Respiratory: Lungs have improved aeration compared to 03/26. Respirations are non-labored. Breath sounds are equal. Symmetrical chest wall expansion. Cardiovascular: Normal rate. Regular rhythm. No murmur. No gallop. No edema. Gastrointestinal: Soft. Normal bowel sounds. Skin: Warm. Dry. Neurologic: Alert and oriented to person, place, time. Cranial nerves 3-11 grossly intact. Psychiatric: Cooperative. Appropriate mood & affect. Labs Laboratory Tests Test 03/26/22 10:23 03/26/22 16:04 03/26/22 21:29 03/27/22 04:50 Range/Units Glucometer 256 H 283 H 371 H 70-110 MG/DL White Blood Count 10.3 4.3-11.0 10^3/uL Red Blood Count 4.16 3.80-5.11 10^6/uL Hemoglobin 12.6 11.5-16.0 g/dL Hematocrit 38 35-52 % Mean Corpuscular Volume 92 80-99 fL Mean Corpuscular Hemoglobin 30 25-34 pg Mean Corpuscular Hemoglobin Concent 33 32-36 g/dL Red Cell Distribution Width 16.2 H 10.0-14.5 % Platelet Count 256 130-400 10^3/uL Mean Platelet Volume 10.7 9.0-12.2 fL Immature Granulocyte % (Auto) 1 % Neutrophils (%) (Auto) 86 H 42-75 % Lymphocytes (%) (Auto) 6 L 12-44 % Monocytes (%) (Auto) 6 0-12 % Eosinophils (%) (Auto) 1 0-10 % Basophils (%) (Auto) 0 0-10 % Neutrophils # (Auto) 8.9 H 1.8-7.8 10^3/uL Lymphocytes # (Auto) 0.7 L 1.0-4.0 10^3/uL Monocytes # (Auto) 0.6 0.0-1.0 10^3/uL Eosinophils # (Auto) 0.1 0.0-0.3 10^3/uL Basophils # (Auto) 0.0 0.0-0.1 10^3/uL Immature Granulocyte # (Auto) 0.1 0.0-0.1 10^3/uL Sodium Level 140 135-145 MMOL/L Potassium Level 3.4 L 3.6-5.0 MMOL/L Chloride Level 103 98-107 MMOL/L Carbon Dioxide Level 20 L 21-32 MMOL/L Anion Gap 17 H 5-14 MMOL/L Blood Urea Nitrogen 16 7-18 MG/DL Creatinine 0.71 0.60-1.30 MG/DL Estimat Glomerular Filtration Rate 98 BUN/Creatinine Ratio 23 Glucose Level 336 H 70-105 MG/DL Calcium Level 9.5 8.5-10.1 MG/DL Corrected Calcium 10.7 H 8.5-10.1 MG/DL Phosphorus Level 2.6 2.3-4.7 MG/DL Magnesium Level 1.6 1.6-2.4 MG/DL Total Bilirubin 0.7 0.1-1.0 MG/DL Aspartate Amino Transf (AST/SGOT) 25 5-34 U/L Alanine Aminotransferase (ALT/SGPT) 17 0-55 U/L Alkaline Phosphatase 117 40-136 U/L Total Protein 6.7 6.4-8.2 GM/DL Albumin 2.5 L 3.2-4.5 GM/DL Diagnosis/Problems Diagnosis/Problems (1) Non-ST elevation myocardial infarction (NSTEMI), initial care episode Assessment & Plan: She appears to have suffered another non-ST elevation myocardial infarction during this admission. She has known severe three-vessel coronary artery disease. She had been seen by cardiothoracic surgery at [facility] and by report, they did not think she was a good surgical candidate. The plan was for high risk percutaneous coronary intervention but then the patient left AGAINST MEDICAL ADVICE before this could be performed. This was all a few months ago. She is on aspirin and high-dose statin medication. Once we get her off vasoactive medications, we can restart beta-liang. Assuming she recovers from this acute, other noncardiac illness, then we will eventually need to have a discussion about moving forward with coronary revascularization. (2) Ischemic cardiomyopathy Status: Chronic Assessment & Plan: She has moderate left ventricular systolic dysfunction. Metoprolol succinate has been resumed but as above, is on hold until she is off vasopressors. Once her blood pressures are improved, we can also try to add an SHEILA inhibitor. (3) Septic shock Status: Acute Assessment & Plan: This is being managed by the hospitalist and eICU. She remains on norepinephrine after stopping vasopressin on 03/25. She received a full course of IV antibiotics. I started her on midodrine to see if we can get her off of the intravenous vasoactive drugs and her blood pressure improved somewhat but she still cannot seem to get off norepinephrine. We can always back this down in the future if she becomes hypertensive. I am concerned about administering these vasoactive substances in the setting of an acute myocardial infarction but we have little alternative short of making her comfort care. She is not interested in comfort care. (4) Chronic HFrEF (heart failure with reduced ejection fraction) Assessment & Plan: Although her BNP level was elevated, this was in the setting of sepsis and acute kidney injury. We will continue guideline directed medical therapy as tolerated by her renal function and blood pressure. I started her on furosemide infusion on 03/26. I would prefer this as opposed to periodic bolus d oses of furosemide given her ongoing shock. (5) Peripheral arterial disease Status: Chronic Assessment & Plan: She most likely also has extensive peripheral vascular disease as noted on her previous cardiac catheterization. We will continue aspirin and high-dose statin medication. This will also need to be addressed once she recovers from the acute noncardiac illness. (6) Acute kidney injury Assessment & Plan: Her creatinine was elevated at the time of admission. This has now improved. This would not be a contraindication to treating her with SHEILA inhibitor or ARB once her blood pressure improves. We will need to watch this closely with the diuretic. (7) Adnexal mass Status: Acute Assessment & Plan: We will continue to hold clopidogrel until she has a biopsy of this mass. Aspirin should not be a contraindication to a biopsy. (8) Type 2 diabetes mellitus with complication Assessment & Plan: This is being managed by the hospitalist. (9) Cigarette smoker Status: Chronic Assessment & Plan: She needs to quit smoking. She has been counseled about this on several occasions. JACQUELYN OSORIO JR, MD March 27, 2022 10:13
[2022-03-27] MEDS: inSUlin (REGULAR) HUMAN 1 UNIT/0.01 ML (CHARGE PER UNIT) SC PRN ×2 (12:46→15:44)
[2022-03-27] MEDS: FUROSEMIDE INJECTION 120 MG in D5W 100 ML IVPB 100 ML IV SCH (15:44)
[2022-03-28] MEDS: RT-ALBUTEROL/IPRATROPIUM 3 ML (DUONEB) VIAL INH SCH ×7 (01:17→22:43)
[2022-03-28 01:42] VITALS: BP 104/81
[2022-03-28 05:00] LABS: BASOPHILS % (AUTO) 0 % (0-10); EOSINOPHILS % (AUTO) 0 % (0-10); HEMATOCRIT 35 % (35-52); HEMOGLOBIN 11.7 g/dL (11.5-16.0); LYMPHOCYTES # (AUTO) 0.5 10^3/uL (1.0-4.0); LYMPHOCYTES % (AUTO) 4 % (12-44); MEAN CORPUSCULAR HEMOGLOBIN 31 pg (25-34); MEAN CORPUSCULAR HGB CONC 34 g/dL (32-36); MEAN CORPUSCULAR VOLUME 91 fL (80-99); MEAN PLATELET VOLUME 10.7 fL (9.0-12.2); MONOCYTES # (AUTO) 0.6 10^3/uL (0.0-1.0); MONOCYTES % (AUTO) 5 % (0-12); NEUTROPHILS # (AUTO) 10.8 10^3/uL (1.8-7.8); NEUTROPHILS % (AUTO) 90 % (42-75); PLATELET COUNT 280 10^3/uL (130-400)
[2022-03-28] MEDS: ENOXAPARIN 40 MG/0.4 ML (LOVENOX) SYR SC SCH (05:02)
[2022-03-28] MEDS: NOREPINEPHRINE 8 MG/250 ML 250 ML IV SCH ×3 (05:03→23:31)
[2022-03-28 05:11] LABS: ALBUMIN 2.5 GM/DL (3.2-4.5); POTASSIUM 2.6 MMOL/L (3.6-5.0)
[2022-03-28 05:13] LABS: CALCIUM 9.3 MG/DL (8.5-10.1)
[2022-03-28 05:14] LABS: TOTAL PROTEIN 6.8 GM/DL (6.4-8.2)
[2022-03-28 05:16] LABS: BILIRUBIN,TOTAL 0.5 MG/DL (0.1-1.0)
[2022-03-28 05:17] LABS: PHOSPHORUS 3.2 MG/DL (2.3-4.7)
[2022-03-28 05:18] LABS: CREATININE SERUM 0.65 MG/DL (0.60-1.30)
[2022-03-28 05:21] LABS: MAGNESIUM 1.6 MG/DL (1.6-2.4)
[2022-03-28] MEDS: POTASSIUM CL 10MEQ/50ML IVPB 50 ML IV SCH ×5 (05:39→08:28)
[2022-03-28] MEDS: inSUlin ASPART (NovoLOG) 1 UNIT/0.01 ML (CHARGE PER UNIT) SC SCH ×4 (05:40→20:26)
[2022-03-28] MEDS: KCL 20 MEQ TAB (K-DUR) PO SCH (05:41)
[2022-03-28] MEDS: MAGNESIUM 1 GM/100 ML IVPB 100 ML IV SCH (05:41)
--- NOTE | 2022-03-28 07:03 | Progress Note - Hospitalist ---
Subjective HPI/CC On Admission Date Seen by Provider: March 28, 2022 Time Seen by Provider: 11:00 PT ARRIVES VIA EMS FROM HOME--LIVES WITH HER SISTER AND [id number] WAS REPORTED TO EMS THAT PT HAS BEEN SICK FOR THE PAST FEW DAYS WITH FEVER AND DIARRHEA HAS NOT BEEN OUT OF BED FOR THE LAST 2 DAYS, PER EMS. TEMP IS 103.4 FOR EMS--PT UNAWARE OF FEVER BP 80'S/50'S, HR IN 140'S FOR EMS PT HAS COPD AND CONTINUES TO SMOKE. DOES NOT HAVE HOME O2 EMS REPORT THAT PT BECAME VERY SHORT OF BREATH VERY EASILY WITH MINIMAL EFFORT AT THE RESIDENCE. PT C/O PAIN TO LEFT RIBS FOR THE LAST WEEK. HURTS TO BREATHE OR MOVE STATES SHE DID FALL OVER A WEEK AGO, BUT HAS NOT SEEN ANYONE FOR THAT PROBLEM HAS A FREQUENT COUGH--PT STATES IS NORMAL FOR HER DENIES NAUSEA DENIES ABDOMINAL PAIN DOES NOT KNOW WHEN SHE LAST VOIDED DOES NOT KNOW WHEN SHE LAST ATE OR DRANK, BUT STATES SHE IS VERY THIRSTY NOW. CANNOT STATE WHY SHE HAS NOT BEEN EATING OR DRINKING. PT ALSO HAS HISTORY OF HTN, WELL CAD WITH STENTS IN 2009 PT ALSO HAS BEEN DX WITH DIABETES AND BEEN ON INSULIN IN THE PAST, BUT HAD QUIT TAKING IT 11 YEARS AGO PT WAS SEEN HERE 01/16/22--PT HAD NOT SEEN A DR IN AT LEAST 12 YEARS AT THAT TIME PT WAS ADMITTED AT THAT TIME WITH MULTIPLE PROBLEMS, INCLUDING SEVERE SEPSIS, UTI, CHF, PNEUMONIA, NSTEMI. 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 PT CANNOT STATE WHAT WAS DONE WHEN SHE WAS AT SHE STATES SHE HAS MEDICATION AT HOME, BUT DOES NOT KNOW WHAT MEDICATION SHE IS ON OR WHAT SHE TAKES IT FOR STATES SHE DOES NOT KNOW IF SHE TOOK HER MEDICATIONS TODAY OR NOT, OR WHEN SHE MIGHT HAVE LAST TAKEN ANY MEDICATION HAS NOT SOUGHT CARE UNTIL TONIGHT FOR THESE PROBLEMS STATES SHE "DOESN'T KNOW" WHY SHE DID NOT SEEK CARE PRIOR TO TONIGHT. Upon my arrival patient was somnolent would open up her eyes begin to answer question would trail off and she would fall back asleep. She did deny headache and denied pain. At baseline reportedly a poor historian. She had been scheduled for biopsy of a right adnexal mass suspicious for malignancy but did not stop her Plavix apparently was being rescheduled. She denied leg pain and there have been no reports of leg pain with known severe peripheral vascular disease. Subjective/Events-last exam Had a long conversation with the patient and her friend of 40 years who she adeline es with Patient is aware of the pelvic mass but she is too critical to obtain biopsy to confirm cancer I told her that the presumptive cancer is draining her reserve and that is why she is not improving Friend stated her PCP had told her this but patient was not willing to accept this information Patient was told that although this is information is not what she wants to hear we are required to face reality and manage accordingly Patient appears to be aware now of this probable decline from the cancer Need to help increase BP to get off pressor and then move to floor for comfort care/hospice arrangements Review of Systems General: Fatigue, Malaise Focused Exam Time of Focused Exam: 01:00 Objective Exam Vital Signs Vital Signs Date Time Temp Pulse Resp B/P (MAP) Pulse Ox O2 Delivery O2 Flow Rate FiO2 03/28/22 20:00 36.5 03/28/22 20:00 92 Room Air 03/28/22 18:00 97 114/75 03/28/22 17:00 03/28/22 15:00 24 03/27/22 09:00 21 Capillary Refill : Less Than 3 Seconds General Appearance: No Apparent Distress, WD/WN, Chronically ill Respiratory: Lungs Clear, Normal Breath Sounds Cardiovascular: Regular Rate, Rhythm Neurologic/Psychiatric: Alert, Oriented x3 Results/Procedures Lab Laboratory Tests 03/28/22 04:50 Patient resulted labs reviewed. Assessment/Plan Assessment and Plan Assess & Plan/Chief Complaint (1) Septic shock Status: Acute Assessment & Plan: Uncertain etiology, initially with diarrhea and fever. C diff neg. Urine culture no growth. Blood cultures no growth to date. Possible pneumonia, but CT chest has had similar findings for chronic time period. Continue cefepime. Norepinephrine and LR. Appreciate [facility] ICU assistance. 03/24- holding IVF and giving lasix this am due to increasing swelling and worsening hypoxia overnight. Continue cefepime. 03/25- requiring both vasopressin and norepinephrine overnight, but vasopressin held again this am. Remains on cefepime. 03/26- cefepime completed, on norepinephrine alone still, new meds per Cardiology and attempting to wean norepi. 03/27patient continues to be maintained on norepinephrine 03/27patient continues to be maintained on norepinephrine (2) Pneumonia Status: Acute Assessment & Plan: Bilateral multifocal, concerning for possible underlying mal ignancy, particularly as findings are not new and she has been on more than one course of antibiotics. Continue cefepime for now. s/p cefepime x 5 days Qualifiers: (3) Adnexal mass Status: Acute Assessment & Plan: Was scheduled for biopsy outpatient, but was unable to be done due to blood thinners, holding currently, but given severity of current illness, not likely able to get done currently. Discussed difficulty in prognostic planning without biopsy. (4) CAD (coronary artery disease) Status: Chronic Assessment & Plan: Severe multivessel disease both coronary and peripheral, holding antiplatelets in hopes of biopsy shortly. (5) NSTEMI (non-ST elevated myocardial infarction) Status: Acute Assessment & Plan: Mild troponin elevation, appreciate Cardiology recommendations. Known severe CAD and multiple other vascular occlusions, was referred for CABG but had possible stroke and was deferred, has outpatient appt with Dr. Damon. Holding antiplatelets due to need for adnexal mass biopsy. (6) Cardiomyopathy Status: Chronic Qualifiers: Qualified Codes: I25.5 - Ischemic cardiomyopathy (7) Tobacco abuse Status: Chronic (8) HLD (hyperlipidemia) Status: Chronic (9) T2DM (type 2 diabetes mellitus) Status: Chronic Assessment & Plan: Sliding scale insulin protocol Qualifiers: Qualified Codes: E11.69 - Type 2 diabetes mellitus with other specified complication (10) HFrEF (heart failure with reduced ejection fraction) Status: Chronic Assessment & Plan: EF 30-35% 03/20/22. Appreciate Cardiology recommendations. 03/24 lasix 40 mg IV today, monitor BP closely 03/25- had low bp after lasix yesterday, but BNP is significantly up and CXR with worsening appearance, will defer to [facility] ICU and Cardiology on repeat lasix (11) Lactic acidosis Status: Resolved (12) Peripheral arterial disease Status: Chronic (13) Acute renal failure Status: Resolved (14) Carotid artery disease Status: Chronic (15) Acute respiratory failure Status: Acute Assessment & Plan: 03/25- Secondary to pneumonia, sepsis, possible underlying pulmonary mets. Now frequently requiring bipap. Discussed her tenuous status, she wants to stay full code and to be intubated if needed. Qualifiers: Qualified Codes: J96.01 - Acute respiratory failure with hypoxia (16) DVT prophylaxis Status: Acute Assessment & Plan: Enoxaparin Plan: Guarded prognosis poor Supportive care Critical Care Critically Ill Patient MISSY ORTEGA DO March 28, 2022 07:02
[2022-03-28] MEDS: VASOPRESSIN INJECTION 20 UNIT in NS (IVPB) 100 ML IV SCH ×2 (07:46→13:39)
[2022-03-28] MEDS: MIDODRINE 10 MG (PROAMATINE) TAB PO SCH ×3 (08:28→20:26)
[2022-03-28] MEDS: ASPIRIN E.C. 81 MG (ECOTRIN) TAB PO SCH (08:28)
[2022-03-28] MEDS: PANTOPRAZOLE 40 MG (PROTONIX) VIAL IV SCH (08:28)
--- NOTE | 2022-03-28 09:40 | Diagnostic Imaging Report ---
INDICATION: Shortness of air COMPARISON: 03/27/2022 TECHNIQUE: Single radiograph of the chest dated 03/28/2022. FINDINGS: Right IJ central venous catheter is stable. The cardiac silhouette is stable. Small left greater than right bibasilar pleural-parenchymal opacities are present. This has improved on the left though slightly worsened on the right. No pneumothorax. Osseous structures appear stable. IMPRESSION: Small bibasilar pleural-parenchymal opacities, left greater than right. This could relate to a combination of pleural fluid with adjacent atelectasis and/or infiltrate. This has slightly improved on the left though slightly worsened on the right compared to the prior examination. Stable right IJ central venous catheter. Dictated by: Dictated on workstation # [id number]
--- NOTE | 2022-03-28 10:07 | Tele-ICU Progress Note ---
Progress Note video rounds completed 61 y/o admitted with sepsis still with hypotension on small dose of levophed and midodrine otherwise sitting up in bed, conversant, eating breakfast K 2.6 being corrected, mag borderline low WBC 12,000 Cardiology following COMPARISON: 03/27/2022 TECHNIQUE: Single radiograph of the chest dated 03/28/2022. FINDINGS: Right IJ central venous catheter is stable. The cardiac silhouette is stable. Small left greater than right bibasilar pleural-parenchymal opacities are present. This has improved on the left though slightly worsened on the right. No pneumothorax. Osseous structures appear stable. IMPRESSION: Small bibasilar pleural-parenchymal opacities, left greater than right. This could relate to a combination of pleural fluid with adjacent atelectasis and/or infiltrate. This has slightly improved on the left though slightly worsened on the right compared to the prior examination. Stable right IJ central venous catheter. Dictated on workstation # [id number] Focused Exam Height, Weight, BMI Height: '" Weight: 146lbs. oz. 66.978168cp; 24.18 BMI Method:Stated Time of Focused Exam: 01:00 Laboratory Tests 03/28/22 04:50 Results Results/Procedures Lab Laboratory Tests 03/27/22 04:50 03/28/22 04:50 Results Labs Labs Laboratory Tests 03/27/22 10:35: Glucometer 409*H 03/27/22 15:40: Glucometer 311H 03/27/22 20:32: Glucometer 191H 03/28/22 04:46: Glucometer 121H 03/28/22 04:50: White Blood Count 12.0H, Red Blood Count 3.82, Hemoglobin 11.7, Hematocrit 35, Mean Corpuscular Volume 91, Mean Corpuscular Hemoglobin 31, Mean Corpuscular Hemoglobin Concent 34, Red Cell Distribution Width 16.1H, Platelet Count 280, Mean Platelet Volume 10.7, Immature Granulocyte % (Auto) 1, Neutrophils (%) (Auto) 90H, Lymphocytes (%) (Auto) 4L, Monocytes (%) (Auto) 5, Eosinophils (%) (Auto) 0, Basophils (%) (Auto) 0, Neutrophils # (Auto) 10.8H, Lymphocytes # (Auto) 0.5L, Monocytes # (Auto) 0.6, Eosinophils # (Auto) 0.0, Basophils # (Auto) 0.0, Immature Granulocyte # (Auto) 0.1, Sodium Level 141, Potassium Level 2.6L, Chloride Level 95L, Carbon Dioxide Level 31, Anion Gap 15H, Blood Urea Nitrogen 14, Creatinine 0.65, Estimat Glomerular Filtration Rate 101, BUN/Creatinine Ratio 22, Glucose Level 118H, Calcium Level 9.3, Corrected Calcium 10.5H, Phosphorus Level 3.2, Magnesium Level 1.6, Total Bilirubin 0.5, Aspartate Amino Transf (AST/SGOT) 28, Alanine Aminotransferase (ALT/SGPT) 18, Alkaline Phosphatase 95, Total Protein 6.8, Albumin 2.5L Microbiology 03/20/22 Blood Culture - Final, Complete No growth 03/20/22 MRSA Screen - Final, Complete MRSA not isolated 03/20/22 Urine Culture - Final, Complete NO GROWTH 03/20/22 Fecal Leukocyte Stain - Final, Complete 03/20/22 C. difficile GDH Antigen & Toxins - Final, Complete 03/20/22 Stool Culture - Final, Complete CHONG PALACIOS MD March 28, 2022 10:07
--- NOTE | 2022-03-28 10:28 | Cardiology Progress Note ---
Progress Note-Cardiology Events since last exam Date Seen by Provider: March 28, 2022 Time Seen by Provider: 10:23 Events since last exam She remains in the intensive care unit and persistent shock. She denies chest discomfort, dyspnea at rest, palpitations, syncope, or ankle edema. Certain portions of this document may have been dictated utilizing voice recognition technology. Inherent to this technology, typographical and grammatical errors may exist. As much as I am diligent to identify and correct these mistakes, some errors may remain in the document. Vitals Last set of Vitals Signs Vital Signs 03/27/22 03/28/22 03/28/22 09:00 07:42 09:00 Temp 36.1 Pulse 101 Resp 33 B/P (MAP) 121/97 Pulse Ox 91 O2 Delivery NIV Bilevel O2 Flow Rate 40.00 FiO2 21 Labs Labs Laboratory Tests 03/28/22 04:50 Exam Vital Signs Vital Signs Date Time Temp Pulse Resp B/P (MAP) Pulse Ox O2 Delivery O2 Flow Rate FiO2 03/28/22 09:00 101 33 121/97 91 NIV Bilevel 40.00 03/28/22 07:42 36.1 03/27/22 09:00 21 Physical Exam General: Alert. No acute distress. Eye: No xanthelasma. HENT: Normocephalic. Neck: Jugular venous pressure does not appear elevated. Respiratory: Lungs have some scattered rhonchi anteriorly. Respirations are non- labored. Breath sounds are equal. Symmetrical chest wall expansion. Cardiovascular: Normal rate. Regular rhythm. No murmur. No gallop. No edema. Gastrointestinal: Soft. Normal bowel sounds. Skin: Warm. Dry. Neurologic: Alert and oriented to person, place, time. Cranial nerves 3-11 grossly intact. Psychiatric: Cooperative. Appropriate mood & affect. Labs Laboratory Tests Test 03/27/22 10:35 03/27/22 15:40 03/27/22 20:32 03/28/22 04:46 Range/Units Glucometer 409 *H 311 H 191 H 121 H 70-110 MG/DL Test 03/28/22 04:50 Range/Units White Blood Count 12.0 H 4.3-11.0 10^3/uL Red Blood Count 3.82 3.80-5.11 10^6/uL Hemoglobin 11.7 11.5-16.0 g/dL Hematocrit 35 35-52 % Mean Corpuscular Volume 91 80-99 fL Mean Corpuscular Hemoglobin 31 25-34 pg Mean Corpuscular Hemoglobin Concent 34 32-36 g/dL Red Cell Distribution Width 16.1 H 10.0-14.5 % Platelet Count 280 130-400 10^3/uL Mean Platelet Volume 10.7 9.0-12.2 fL Immature Granulocyte % (Auto) 1 % Neutrophils (%) (Auto) 90 H 42-75 % Lymphocytes (%) (Auto) 4 L 12-44 % Monocytes (%) (Auto) 5 0-12 % Eosinophils (%) (Auto) 0 0-10 % Basophils (%) (Auto) 0 0-10 % Neutrophils # (Auto) 10.8 H 1.8-7.8 10^3/uL Lymphocytes # (Auto) 0.5 L 1.0-4.0 10^3/uL Monocytes # (Auto) 0.6 0.0-1.0 10^3/uL Eosinophils # (Auto) 0.0 0.0-0.3 10^3/uL Basophils # (Auto) 0.0 0.0-0.1 10^3/uL Immature Granulocyte # (Auto) 0.1 0.0-0.1 10^3/uL Sodium Level 141 135-145 MMOL/L Potassium Level 2.6 L 3.6-5.0 MMOL/L Chloride Level 95 L 98-107 MMOL/L Carbon Dioxide Level 31 21-32 MMOL/L Anion Gap 15 H 5-14 MMOL/L Blood Urea Nitrogen 14 7-18 MG/DL Creatinine 0.65 0.60-1.30 MG/DL Estimat Glomerular Filtration Rate 101 BUN/Creatinine Ratio 22 Glucose Level 118 H 70-105 MG/DL Calcium Level 9.3 8.5-10.1 MG/DL Corrected Calcium 10.5 H 8.5-10.1 MG/DL Phosphorus Level 3.2 2.3-4.7 MG/DL Magnesium Level 1.6 1.6-2.4 MG/DL Total Bilirubin 0.5 0.1-1.0 MG/DL Aspartate Amino Transf (AST/SGOT) 28 5-34 U/L Alanine Aminotransferase (ALT/SGPT) 18 0-55 U/L Alkaline Phosphatase 95 40-136 U/L Total Protein 6.8 6.4-8.2 GM/DL Albumin 2.5 L 3.2-4.5 GM/DL Diagnosis/Problems Diagnosis/Problems (1) Non-ST elevation myocardial infarction (NSTEMI), initial care episode Assessment & Plan: She appears to have suffered another non-ST elevation myocardial infarction during this admission. She has known severe three-vessel coronary artery disease. She had been seen by cardiothoracic surgery at [facility] and by report, they did not think she was a good surgical candidate. The plan was for high risk percutaneous coronary intervention but then the patient left AGAINST MEDICAL ADVICE before this could be performed. This was all a few months ago. She is on aspirin and high-dose st atin medication. Once we get her off vasoactive medications, we can restart beta-liang. Assuming she recovers from this acute, other noncardiac illness, then we will eventually need to have a discussion about moving forward with coronary revascularization. (2) Septic shock Status: Acute Assessment & Plan: This is being managed by the hospitalist and eICU. She remains on norepinephrine after stopping vasopressin on 03/25. She received a full course of IV antibiotics. I started her on midodrine to see if we can get her off of the intravenous vasoactive drugs and her blood pressure improved somewhat but she still cannot seem to get off norepinephrine. We can always back this down in the future if she becomes hypertensive. I am concerned about administering these vasoactive substances in the setting of an acute myocardial infarction but we have little alternative short of making her comfort care. I had been treating her with a furosemide infusion due to some pulmonary congestion. This has been stopped by the eICU. This is not unreasonable. She is not interested in comfort care. (3) Ischemic cardiomyopathy Status: Chronic Assessment & Plan: She has moderate left ventricular systolic dysfunction. Metoprolol succinate has been resumed but as above, is on hold until she is off vasopressors. Once her blood pressures are improved, we can also try to add an SHEILA inhibitor. (4) Chronic HFrEF (heart failure with reduced ejection fraction) Assessment & Plan: Although her BNP level was elevated, this was in the setting of sepsis and acute kidney injury. We will continue guideline directed medical therapy as tolerated by her renal function and blood pressure. I started her on furosemide infusion on 03/26. As above, this has been stopped by the eICU as of 03/28. Perhaps this will help us get her off the norepinephrine infusion. (5) Peripheral arterial disease Status: Chronic Assessment & Plan: She most likely also has extensive peripheral vascular disease as noted on her previous cardiac catheterization. We will continue a spirin and high-dose statin medication. This will also need to be addressed once she recovers from the acute noncardiac illness. (6) Acute kidney injury Assessment & Plan: Her creatinine was elevated at the time of admission. This has now improved. This would not be a contraindication to treating her with SHEILA inhibitor or ARB once her blood pressure improves. (7) Adnexal mass Status: Acute Assessment & Plan: We will continue to hold clopidogrel until she has a biopsy of this mass. Aspirin should not be a contraindication to a biopsy. (8) Type 2 diabetes mellitus with complication Assessment & Plan: This is being managed by the hospitalist. (9) Cigarette smoker Status: Chronic Assessment & Plan: She needs to quit smoking. She has been counseled about this on several occasions. JACQUELYN OSORIO JR, MD March 28, 2022 10:28
[2022-03-29] MEDS: VASOPRESSIN INJECTION 20 UNIT in NS (IVPB) 100 ML IV SCH ×3 (00:21→21:51)
[2022-03-29] MEDS: RT-ALBUTEROL/IPRATROPIUM 3 ML (DUONEB) VIAL INH SCH ×6 (02:48→22:14)
[2022-03-29] MEDS: ENOXAPARIN 40 MG/0.4 ML (LOVENOX) SYR SC SCH (04:38)
[2022-03-29 04:48] LABS: BASOPHILS % (AUTO) 0 % (0-10); EOSINOPHILS # (AUTO) 0.1 10^3/uL (0.0-0.3); EOSINOPHILS % (AUTO) 1 % (0-10); HEMATOCRIT 31 % (35-52); HEMOGLOBIN 10.3 g/dL (11.5-16.0); LYMPHOCYTES # (AUTO) 0.7 10^3/uL (1.0-4.0); LYMPHOCYTES % (AUTO) 10 % (12-44); MEAN CORPUSCULAR HEMOGLOBIN 30 pg (25-34); MEAN CORPUSCULAR HGB CONC 33 g/dL (32-36); MEAN CORPUSCULAR VOLUME 92 fL (80-99); MEAN PLATELET VOLUME 10.9 fL (9.0-12.2); MONOCYTES # (AUTO) 0.5 10^3/uL (0.0-1.0); MONOCYTES % (AUTO) 6 % (0-12); NEUTROPHILS # (AUTO) 6.3 10^3/uL (1.8-7.8); NEUTROPHILS % (AUTO) 82 % (42-75); PLATELET COUNT 232 10^3/uL (130-400); WHITE BLOOD COUNT 7.6 10^3/uL (4.3-11.0)
[2022-03-29 04:59] LABS: ALBUMIN 2.2 GM/DL (3.2-4.5); POTASSIUM 2.9 MMOL/L (3.6-5.0)
[2022-03-29 05:00] LABS: CALCIUM 8.6 MG/DL (8.5-10.1)
[2022-03-29 05:03] LABS: BILIRUBIN,TOTAL 0.5 MG/DL (0.1-1.0)
[2022-03-29 05:05] LABS: CREATININE SERUM 0.6 MG/DL (0.60-1.30); PHOSPHORUS 2.8 MG/DL (2.3-4.7)
[2022-03-29] MEDS: POTASSIUM CL 10MEQ/50ML IVPB 50 ML IV SCH ×5 (05:06→07:49)
[2022-03-29] MEDS: KCL 20 MEQ TAB (K-DUR) PO SCH (05:06)
[2022-03-29 05:08] LABS: MAGNESIUM 1.6 MG/DL (1.6-2.4)
[2022-03-29] MEDS: MAGNESIUM 1 GM/100 ML IVPB 100 ML IV SCH ×3 (05:21→08:00)
[2022-03-29] MEDS: inSUlin ASPART (NovoLOG) 1 UNIT/0.01 ML (CHARGE PER UNIT) SC SCH ×4 (06:02→21:42)
--- NOTE | 2022-03-29 07:20 | Progress Note - Hospitalist ---
Subjective HPI/CC On Admission Date Seen by Provider: March 29, 2022 Time Seen by Provider: 10:00 PT ARRIVES VIA EMS FROM HOME--LIVES WITH HER SISTER AND [id number] WAS REPORTED TO EMS THAT PT HAS BEEN SICK FOR THE PAST FEW DAYS WITH FEVER AND DIARRHEA HAS NOT BEEN OUT OF BED FOR THE LAST 2 DAYS, PER EMS. TEMP IS 103.4 FOR EMS--PT UNAWARE OF FEVER BP 80'S/50'S, HR IN 140'S FOR EMS PT HAS COPD AND CONTINUES TO SMOKE. DOES NOT HAVE HOME O2 EMS REPORT THAT PT BECAME VERY SHORT OF BREATH VERY EASILY WITH MINIMAL EFFORT AT THE RESIDENCE. PT C/O PAIN TO LEFT RIBS FOR THE LAST WEEK. HURTS TO BREATHE OR MOVE STATES SHE DID FALL OVER A WEEK AGO, BUT HAS NOT SEEN ANYONE FOR THAT PROBLEM HAS A FREQUENT COUGH--PT STATES IS NORMAL FOR HER DENIES NAUSEA DENIES ABDOMINAL PAIN DOES NOT KNOW WHEN SHE LAST VOIDED DOES NOT KNOW WHEN SHE LAST ATE OR DRANK, BUT STATES SHE IS VERY THIRSTY NOW. CANNOT STATE WHY SHE HAS NOT BEEN EATING OR DRINKING. PT ALSO HAS HISTORY OF HTN, WELL CAD WITH STENTS IN 2009 PT ALSO HAS BEEN DX WITH DIABETES AND BEEN ON INSULIN IN THE PAST, BUT HAD QUIT TAKING IT 11 YEARS AGO PT WAS SEEN HERE 01/16/22--PT HAD NOT SEEN A DR IN AT LEAST 12 YEARS AT THAT TIME PT WAS ADMITTED AT THAT TIME WITH MULTIPLE PROBLEMS, INCLUDING SEVERE SEPSIS, UTI, CHF, PNEUMONIA, NSTEMI. 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 PT CANNOT STATE WHAT WAS DONE WHEN SHE WAS AT SHE STATES SHE HAS MEDICATION AT HOME, BUT DOES NOT KNOW WHAT MEDICATION SHE IS ON OR WHAT SHE TAKES IT FOR STATES SHE DOES NOT KNOW IF SHE TOOK HER MEDICATIONS TODAY OR NOT, OR WHEN SHE MIGHT HAVE LAST TAKEN ANY MEDICATION HAS NOT SOUGHT CARE UNTIL TONIGHT FOR THESE PROBLEMS STATES SHE "DOESN'T KNOW" WHY SHE DID NOT SEEK CARE PRIOR TO TONIGHT. Upon my arrival patient was somnolent would open up her eyes begin to answer question would trail off and she would fall back asleep. She did deny headache and denied pain. At baseline reportedly a poor historian. She had been scheduled for biopsy of a right adnexal mass suspicious for malignancy but did not stop her Plavix apparently was being rescheduled. She denied leg pain and there have been no reports of leg pain with known severe peripheral vascular disease. Subjective/Events-last exam Patient declined Levophed DC since central pressure during cath was 30 points above peripherally BP cuff measured Had long discussion with friend of 40 years outside the room since she has documentation at the clinic that she is able to communicate for her and help make decisions and she is adamantly against CPR and ventilator since it would be futile in agreement with my assessment Patient up in chair SBP 65 Patient appears very end stage Review of Systems General: Fatigue, Malaise Neurological: Confusion Focused Exam Time of Focused Exam: 01:00 Objective Exam Vital Signs Vital Signs Date Time Temp Pulse Resp B/P (MAP) Pulse Ox O2 Delivery O2 Flow Rate FiO2 03/29/22 12:46 82 03/29/22 12:00 92 Nasal Cannula 2.00 03/29/22 10:00 28 96/42 03/29/22 08:00 35.8 03/27/22 09:00 21 Capillary Refill : Less Than 3 Seconds General Appearance: No Apparent Distress, WD/WN Respiratory: Crackles, Decreased Breath Sounds Cardiovascular: Regular Rate, Rhythm Neurologic/Psychiatric: Alert, Disoriented Results/Procedures Lab Laboratory Tests 03/29/22 04:40 03/29/22 09:45 Patient resulted labs reviewed. Assessment/Plan Assessment and Plan Assess & Plan/Chief Complaint (1) Septic shock Status: Acute Assessment & Plan: Uncertain etiology, initially with diarrhea and fever. C diff neg. Urine culture no growth. Blood cultures no growth to date. Possible pneumonia, but CT chest has had similar findings for chronic time period. Continue cefepime. Norepinephrine and LR. Appreciate Tsering ICU assistance. 03/24- holding IVF and giving lasix this am due to increasing swelling and worsening hypoxia overnight. Continue cefepime. 03/25- requiring both vasopressin and norepinephrine overnight, but vasopressin held again this am. Remains on cefepime. 03/26- cefepime completed, on norepinephrine alone still, new meds per Cardiology and attempting to wean norepi. 03/27patient continues to be maintained on norepinephrine 03/27patient continues to be maintained on norepinephrine (2) Pneumonia Status: Acute Assessment & Plan: Bilateral multifocal, concerning for possible underlying malignancy, particularly as findings are not new and she has been on more than one course of antibiotics. Continue cefepime for now. s/p cefepime x 5 days Qualifiers: (3) Adnexal mass Status: Acute Assessment & Plan: Was scheduled for biopsy outpatient, but was unable to be done due to blood thinners, holding currently, but given severity of current illness, not likely able to get done currently. Discussed difficulty in prognostic planning without biopsy. (4) CAD (coronary artery disease) Status: Chronic Assessment & Plan: Severe multivessel disease both coronary and peripheral, holding antiplatelets in hopes of biopsy shortly. (5) NSTEMI (non-ST elevated myocardial infarction) Status: Acute Assessment & Plan: Mild troponin elevation, appreciate Cardiology recommendations. Known severe CAD and multiple other vascular occlusions, was referred for CABG but had possible stroke and was deferred, has outpatient appt with Dr. Damon. Holding antiplatelets due to need for adnexal mass biopsy. (6) Cardiomyopathy Status: Chronic Qualifiers: Qualified Codes: I25.5 - Ischemic cardiomyopathy (7) Tobacco abuse Status: Chronic (8) HLD (hyperlipidemia) Status: Chronic (9) T2DM (type 2 diabetes mellitus) Status: Chronic Assessment & Plan: Sliding scale insulin protocol Qualifiers: Qualified Codes: E11.69 - Type 2 diabetes mellitus with other specified complication (10) HFrEF (heart failure with reduced ejection fraction) Status: Chronic Assessment & Plan: EF 30-35% 03/20/22. Appreciate Cardiology recommendations. 03/24 lasix 40 mg IV today, monitor BP closely 03/25- had low bp after lasix yesterday, but BNP is significantly up and CXR with worsening appearance, will defer to [facility] ICU and Cardiology on repeat lasix (11) Lactic acidosis Status: Resolved (12) Peripheral arterial disease Status: Chronic (13) Acute renal failure Status: Resolved (14) Carotid artery disease Status: Chronic (15) Acute respiratory failure Status: Acute Assessment & Plan: 03/25- Secondary to pneumonia, sepsis, possible underlying pulmonary mets. Now frequently requiring bipap. Discussed her tenuous status, she wants to stay full code and to be intubated if needed. Qualifiers: Qualified Codes: J96.01 - Acute respiratory failure with hypoxia (16) DVT prophylaxis Status: Acute Assessment & Plan: Enoxaparin Plan: Guarded prognosis poor Supportive care 03/29/22: DNR due to futility discussed with her best friend who manages patient DC Pressor Critical Care Critically Ill Patient MISSY ORTEGA DO March 29, 2022 07:20
[2022-03-29] MEDS: ASPIRIN E.C. 81 MG (ECOTRIN) TAB PO SCH (07:57)
[2022-03-29] MEDS: MIDODRINE 10 MG (PROAMATINE) TAB PO SCH ×3 (07:57→21:42)
[2022-03-29] MEDS: PANTOPRAZOLE 40 MG (PROTONIX) VIAL IV SCH (07:57)
--- NOTE | 2022-03-29 09:12 | Tele-ICU Progress Note ---
Subjective Date Seen by a Provider: March 29, 2022 Time Seen by a Provider: 07:50 Subjective/Events-last exam This virtual visit was conducted using real time audio/video. Thank you for asking us to see this patient for respiratory insufficiency due to COPD. Adm w sepsis, NSTEMI, syst. dysfunction. Recent events: PE: VSS. Cachectic. O2 sat 92% on ! LPM. HEENT: No obvious masses, adenopathy or JVD. Chest: coarse on auscultation. CV: RRR S1 S2 No murmur or added sounds. Abd: Non-tender. Bowel sounds Y. : Unremarkable. Lang Y. ASSISTANT MANAGER/psychiatric: Grossly intact. No obvious focal findings. Extremities: No edema. Capillary refill < 3 seconds. Skin: unremarkable. Results: Decreased Hb 10.3, K 2.9. CXR: Bibasilar opacities. Available chart/ vitals / labs / images reviewed. Video assessment done using teleICU camera, rest of exam as per RN. A/P: Respiratory insufficiency: Continue present management with O2, duonebs. Monitor for increasing oxygenation needs and/or need for intubation. Critical Care: critically ill patient. Cont. abx, pressors. PPI, statin, ASA, SSI, Bruno., Levemir. Replace K. Discussed with RN Dulce. Asked RN to reach out to eICU if any questions or concerns later. Time spent with patient/coordination of care with other health professionals (mins): 25 Sepsis Event Evaluation Height, Weight, BMI Height: '" Weight: 146lbs. oz. 66.178789fw; 24.18 BMI Method:Stated Focused Exam Time of Focused Exam: 01:00 Exam Exam Patient acknowledged, consented, and participated in this virtual visit which was conducted using real time audio/video Vital Signs Date Time Temp Pulse Resp B/P (MAP) Pulse Ox O2 Delivery O2 Flow Rate FiO2 03/29/22 08:49 95 Nasal Cannula 1.00 03/29/22 08:03 Nasal Cannula 1.00 03/29/22 08:00 35.8 03/29/22 07:48 03/29/22 07:10 92 Room Air 03/29/22 06:00 93 30 115/78 88 Room Air 03/29/22 05:00 87 21 96/69 91 Room Air 03/29/22 04:00 89 14 97/72 92 Room Air 03/29/22 04:00 92 Room Air 03/29/22 03:59 36.3 03/29/22 03:15 89 104/75 93 Room Air 03/29/22 02:48 93 Room Air 03/29/22 02:00 85 12 95/70 94 Room Air 03/29/22 01:00 89 03/29/22 01:00 89 112/84 95 Room Air 03/29/22 00:21 117/71 03/29/22 00:00 90 19 117/81 92 Room Air 03/28/22 23:59 92 Room Air 03/28/22 23:58 36.6 03/28/22 23:31 127/85 03/28/22 23:00 91 33 124/87 92 Room Air 03/28/22 22:53 36.7 03/28/22 22:43 95 Room Air 03/28/22 22:00 94 21 121/88 93 Room Air 03/28/22 21:00 98 27 132/93 92 Room Air 03/28/22 20:00 36.5 03/28/22 20:00 92 Room Air 03/28/22 20:00 101 28 122/82 93 Room Air 03/28/22 19:41 95 Room Air 03/28/22 19:00 99 29 105/75 92 Room Air 03/28/22 19:00 99 03/28/22 18:00 97 114/75 92 Room Air 03/28/22 17:00 102 124/85 93 Room Air 03/28/22 16:00 36.5 03/28/22 16:00 97 97/65 90 Room Air 03/28/22 16:00 92 Room Air 03/28/22 15:00 97 24 126/88 92 Room Air 03/28/22 14:38 95 Room Air 03/28/22 14:00 87 13 121/84 91 Room Air 03/28/22 13:53 125/86 03/28/22 13:00 96 117/82 90 Room Air 03/28/22 12:50 99 03/28/22 12:00 36.4 03/28/22 12:00 92 Room Air 03/28/22 12:00 96 110/76 91 Room Air 03/28/22 11:00 96 102/75 91 Room Air 03/28/22 10:41 91 Room Air 03/28/22 10:00 96 90/71 92 Room Air I & O 03/29/22 07:00 Intake Total 1920 ml Output Total 2450 ml Balance -530 ml Height & Weight Height: '" Weight: 146lbs. oz. 66.386507yu; 24.18 BMI Method:Stated General Appearance: No Apparent Distress, WD/WN, Chronically ill HEENT: PERRL/EOMI, Other (ORAL MUCOSA EXTREMELY DRY) Neck: Normal Inspection, Non Tender Respiratory: Lungs Clear, Normal Breath Sounds Cardiovascular: Regular Rate, Rhythm Capillary Refill: Less Than 3 Seconds Gastrointestinal: non tender, soft Extremity: Normal Capillary Refill (BUT PULSES ARE NOT PALPABLE. FEET ARE PINK AND WARM. ), No Pedal Edema Neurologic/Psychiatric: Alert, Oriented x3 Skin: Normal Color, Warm/Dry, Other (POOR TURGOR; NO ULCERATIONS OR SKIN BREAKDOWN NOTED BUT LEROY AREA IS DIFFUSELY INFLAMED DUE TO LAYING IN HER FECES AND URINE AT HOME FOR THE LAST 2 DAYS) Results Lab Laboratory Tests 03/28/22 04:50 03/29/22 04:40 Assessment/Plan Assessment/Plan See free text. Critical Care: Critically Ill Patient LEILANI ORELLANA MD March 29, 2022 09:12
[2022-03-29] MEDS: NOREPINEPHRINE 8 MG/250 ML 250 ML IV SCH (09:27)
--- NOTE | 2022-03-29 09:48 | Physical Therapy Daily Note ---
PT Daily Note-Current Subjective Patient in bed pre tx, agrees to PT, has no complaints of pain. Appearance Patient in recliner post tx with nurse call, phone, tray, all needs met, nurse notified. Mental Status Patient Orientation: Person, Place, Situation Attachments: Oxygen, Lang Catheter, IV Transfers SCALE: Activities may be completed with or without assistive devices. 6-Dmswkcoteg-khybfoi completes the activity by him/herself with no assistance from a helper. 5-Set-up or Clean-up Assistance-helper sets up or cleans up; patient completes activity. [place] assists only prior to or following the activity. 4-Supervision or Touching Assistance-helper provides verbal cues and/or touching/steadying and/or contact guard assistance as patient completes activity. Assistance may be provided throughout the activity or intermittently. 3-Partial/Moderate Assistance-helper does LESS THAN HALF the effort. [place] lifts, holds or supports trunk or limbs, but provides less than half the effort. 2-Substantial/Maximal Assistance-helper does MORE THAN HALF the effort. [place] lifts or holds trunk or limbs and provides more than half the effort. 8-Wiiefvgft-hzobgy does ALL the effort. Patient does none of the effort to complete the activity. Or, the assistance of 2 or more helpers is required for the patient to complete the activity. If activity was not attempted, code reason: 7-Patient Refused. 9-Not Applicable-not attempted and the patient did not perform the activity before the current illness, exacerbation or injury. 10-Not Attempted due to Environmental Limitations-(lack of equipment, weather restraints, etc.). 88-Not Attempted due to Medical Conditions or Safety Concerns. Roll Left & Right (QC): 3 Lying to Sitting/Side of Bed(Q: 3 Sit to Stand (QC): 2 Chair/Gwm-sr-Qscxs Xfer(QC): 2 attempted to stand from the bed using a walker but patient could not completely stand and transfer, so max assist stand pivot transfer to recliner. Exercises Seated Therapy Exercises: Ankle pumps, Long arc quads Seated Reps: 20 Treatments bed mobility and transfers, LE exercise Assessment Current Status: Fair Progress improved participation from tuesday. PT Green Promotions Specialist Goals Green Promotions Specialist Goals PT Green Promotions Specialist Goals Time Frame: Apr 24, 2022 Roll Left & Right (QC): 4 Sit to Lying (QC): 4 Lying-Sitting on Side/Bed(QC): 4 Sit to Stand (QC): 4 Chair/Ydb-vd-Oopcl Xfer(QC): 4 Toilet Transfer (QC): 4 Walk 10 feet (QC): 2 PT Plan Problem List Problem List: Activity Tolerance, Functional Strength, Safety, Balance, Gait, Transfer, Bed Mobility, ROM Treatment/Plan Treatment Plan: Continue Plan of Care Treatment Plan: Bed Mobility, Education, Functional Activity Roya, Functional Strength, Gait, Safety, Therapeutic Exercise, Transfers Treatment Duration: Apr 24, 2022 Frequency: 6 times per week Estimated Hrs Per Day: .25 hour per day Patient and/or Family Agrees t: Yes Safety Risks/Education Patient Education: Transfer Techniques, Correct Positioning, Safety Issues Teaching Recipient: Patient Teaching Methods: Demonstration, Discussion Response to Teaching: Reinforcement Needed Time/GCodes Time In: 922 Time Out: 938 Total Billed Treatment Time: 16 Total Billed Treatment 1 visit FA 16' DANILO MERCHANT PT March 29, 2022 09:48
--- NOTE | 2022-03-29 10:12 | Cardiology Progress Note ---
Progress Note-Cardiology Events since last exam Date Seen by Provider: March 29, 2022 Time Seen by Provider: 10:07 Events since last exam I am following her due to non-ST elevation myocardial infarction accompanied by cardiomyopathy and acute on chronic heart failure. She also has severe peripheral vascular disease of her upper and lower extremities bilaterally. She has remained on norepinephrine. This morning she was sitting up in her chair. She felt fatigued but denies lightheadedness. She denies chest discomfort, dyspnea at rest, palpitations, syncope, or ankle edema. Certain portions of this document may have been dictated utilizing voice recognition technology. Inherent to this technology, typographical and grammatical errors may exist. As much as I am diligent to identify and correct these mistakes, some errors may remain in the document. Vitals Last set of Vitals Signs Vital Signs 03/27/22 03/29/22 09:00 10:00 Pulse 80 Resp 28 B/P (MAP) 66/42 Pulse Ox 93 O2 Delivery Nasal Cannula O2 Flow Rate 1.00 FiO2 21 Labs Labs Laboratory Tests 03/29/22 04:40 Exam Vital Signs Vital Signs Date Time Temp Pulse Resp B/P (MAP) Pulse Ox O2 Delivery O2 Flow Rate FiO2 03/29/22 10:00 80 28 66/42 93 Nasal Cannula 1.00 03/29/22 08:00 35.8 03/27/22 09:00 21 Physical Exam General: Alert. No acute distress. She appears older than her stated age and chronically ill. Eye: No xanthelasma. HENT: Normocephalic. Neck: Jugular venous pressure does not appear elevated. Respiratory: Lungs have diffusely decreased breath sounds. Respirations are non- labored. Breath sounds are equal. Symmetrical chest wall expansion. Cardiovascular: Normal rate. Regular rhythm. No murmur. No gallop. No edema. Gastrointestinal: Soft. Normal bowel sounds. Skin: Warm. Dry. Neurologic: Alert and oriented to person, place, time. Cranial nerves 3-11 grossly intact. Psychiatric: Cooperative. Appropriate mood & affect. Labs Laboratory Tests Test 03/28/22 10:35 03/28/22 15:24 03/28/22 20:20 03/29/22 04:40 Range/Units Glucometer 166 H 228 H 406 *H 70-110 MG/DL White Blood Count 7.6 4.3-11.0 10^3/uL Red Blood Count 3.41 L 3.80-5.11 10^6/uL Hemoglobin 10.3 L 11.5-16.0 g/dL Hematocrit 31 L 35-52 % Mean Corpuscular Volume 92 80-99 fL Mean Corpuscular Hemoglobin 30 25-34 pg Mean Corpuscular Hemoglobin Concent 33 32-36 g/dL Red Cell Distribution Width 16.1 H 10.0-14.5 % Platelet Count 232 130-400 10^3/uL Mean Platelet Volume 10.9 9.0-12.2 fL Immature Granulocyte % (Auto) 1 % Neutrophils (%) (Auto) 82 H 42-75 % Lymphocytes (%) (Auto) 10 L 12-44 % Monocytes (%) (Auto) 6 0-12 % Eosinophils (%) (Auto) 1 0-10 % Basophils (%) (Auto) 0 0-10 % Neutrophils # (Auto) 6.3 1.8-7.8 10^3/uL Lymphocytes # (Auto) 0.7 L 1.0-4.0 10^3/uL Monocytes # (Auto) 0.5 0.0-1.0 10^3/uL Eosinophils # (Auto) 0.1 0.0-0.3 10^3/uL Basophils # (Auto) 0.0 0.0-0.1 10^3/uL Immature Granulocyte # (Auto) 0.0 0.0-0.1 10^3/uL Sodium Level 139 135-145 MMOL/L Potassium Level 2.9 L 3.6-5.0 MMOL/L Chloride Level 94 L 98-107 MMOL/L Carbon Dioxide Level 32 21-32 MMOL/L Anion Gap 13 5-14 MMOL/L Blood Urea Nitrogen 15 7-18 MG/DL Creatinine 0.60 0.60-1.30 MG/DL Estimat Glomerular Filtration Rate 103 BUN/Creatinine Ratio 25 Glucose Level 90 70-105 MG/DL Calcium Level 8.6 8.5-10.1 MG/DL Corrected Calcium 10.0 8.5-10.1 MG/DL Phosphorus Level 2.8 2.3-4.7 MG/DL Magnesium Level 1.6 1.6-2.4 MG/DL Total Bilirubin 0.5 0.1-1.0 MG/DL Aspartate Amino Transf (AST/SGOT) 21 5-34 U/L Alanine Aminotransferase (ALT/SGPT) 15 0-55 U/L Alkaline Phosphatase 75 40-136 U/L Total Protein 6.0 L 6.4-8.2 GM/DL Albumin 2.2 L 3.2-4.5 GM/DL Test 03/29/22 06:02 03/29/22 09:45 Range/Units Glucometer 71 70-110 MG/DL Diagnosis/Problems Diagnosis/Problems (1) Non-ST elevation myocardial infarction (NSTEMI), initial care episode Assessment & Plan: She appears to have suffered another non-ST elevation myocardial infarction during this admission. She has known severe three-vessel coronary artery disease. She had been seen by cardiothoracic surgery at [facility] and by report, they did not think she was a good surgical candidate. The plan was for high risk percutaneous coronary i ntervention but then the patient left AGAINST MEDICAL ADVICE before this could be performed. This was all a few months ago. She is on aspirin and high-dose statin medication. Once we get her off vasoactive medications, we can restart beta-liang. Assuming she recovers from this acute, other noncardiac illness, then we will eventually need to have a discussion about moving forward with coronary revascularization. (2) Septic shock Status: Acute Assessment & Plan: She has continued on norepinephrine infusion now for the better part of this hospitalization. I did review her hemodynamics from the cardiac catheterization in December and there was a 30 mmHg discrepancy between her central aortic pressure and blood pressure on her left arm recorded simultaneously. As such, we can add approximately 30 mmHg to the blood pressure we are getting from her upper extremities and that should be a reasonably close estimation of her central aortic pressure. I have asked the nurse to stop the norepinephrine. We will continue midodrine to help support her blood pressure. (3) Ischemic cardiomyopathy Status: Chronic Assessment & Plan: She has moderate left ventricular systolic dysfunction. I will see how she does off the norepinephrine then consider starting low-dose beta-liang and/or SHEILA inhibitor. However, we would need to be extremely cautious with any medication that could further lower her blood pressure. (4) Chronic HFrEF (heart failure with reduced ejection fraction) Assessment & Plan: Although her BNP level was elevated, this was in the setting of sepsis and acute kidney injury. We will continue guideline directed medical therapy as tolerated by her renal function and blood pressure. I started her on furosemide infusion on 03/26. This has been stopped by the eICU as of 03/28. (5) Peripheral arterial disease Status: Chronic Assessment & Plan: She most likely also has extensive peripheral vascular disease as noted on her previous cardiac catheterization. We will continue aspirin and high-dose statin medication. This will also need to be addressed once she recovers from the acute noncardiac illness. As above, this is causing issues with accurately recording noninvasive blood pressures. (6) Acute kidney injury Assessment & Plan: Her creatinine was elevated at the time of admission. This has now improved. This would not be a contraindication to treating her with SHEILA inhibitor or ARB once her blood pressure improves. (7) Adnexal mass Status: Acute Assessment & Plan: We will continue to hold clopidogrel until she has a biopsy of this mass. Aspirin should not be a contraindication to a biopsy. (8) Type 2 diabetes mellitus with complication Assessment & Plan: This is being managed by the hospitalist. (9) Cigarette smoker Status: Chronic Assessment & Plan: She needs to quit smoking. She has been counseled about this on several occasions. JACQUELYN OSORIO JR, MD March 29, 2022 10:12
[2022-03-29] MEDS: inSUlin (REGULAR) HUMAN 1 UNIT/0.01 ML (CHARGE PER UNIT) SC PRN (21:43)
[2022-03-29] MEDS: guaiFENesin/DM (ROBITUSSIN DM) 10 ML UDC PO PRN (22:26)
[2022-03-30] MEDS: RT-ALBUTEROL/IPRATROPIUM 3 ML (DUONEB) VIAL INH SCH ×5 (02:55→20:53)
[2022-03-30 05:25] LABS: BASOPHILS % (AUTO) 0 % (0-10); EOSINOPHILS # (AUTO) 0.1 10^3/uL (0.0-0.3); EOSINOPHILS % (AUTO) 1 % (0-10); HEMATOCRIT 32 % (35-52); HEMOGLOBIN 10.3 g/dL (11.5-16.0); LYMPHOCYTES # (AUTO) 0.5 10^3/uL (1.0-4.0); LYMPHOCYTES % (AUTO) 5 % (12-44); MEAN CORPUSCULAR HEMOGLOBIN 30 pg (25-34); MEAN CORPUSCULAR HGB CONC 33 g/dL (32-36); MEAN CORPUSCULAR VOLUME 93 fL (80-99); MEAN PLATELET VOLUME 11.3 fL (9.0-12.2); MONOCYTES # (AUTO) 0.4 10^3/uL (0.0-1.0); MONOCYTES % (AUTO) 4 % (0-12); NEUTROPHILS # (AUTO) 7.8 10^3/uL (1.8-7.8); NEUTROPHILS % (AUTO) 89 % (42-75); PLATELET COUNT 218 10^3/uL (130-400); WHITE BLOOD COUNT 8.8 10^3/uL (4.3-11.0)
[2022-03-30 05:45] LABS: ALBUMIN 2.4 GM/DL (3.2-4.5); POTASSIUM 3.3 MMOL/L (3.6-5.0)
[2022-03-30 05:46] LABS: CALCIUM 8.8 MG/DL (8.5-10.1)
[2022-03-30 05:47] LABS: TOTAL PROTEIN 6.5 GM/DL (6.4-8.2)
[2022-03-30 05:49] LABS: BILIRUBIN,TOTAL 0.4 MG/DL (0.1-1.0)
[2022-03-30 05:50] LABS: PHOSPHORUS 2.8 MG/DL (2.3-4.7)
[2022-03-30 05:51] LABS: CREATININE SERUM 0.62 MG/DL (0.60-1.30)
[2022-03-30 05:54] LABS: MAGNESIUM 1.9 MG/DL (1.6-2.4)
[2022-03-30] MEDS: inSUlin ASPART (NovoLOG) 1 UNIT/0.01 ML (CHARGE PER UNIT) SC SCH ×4 (06:08→20:55)
[2022-03-30] MEDS: ENOXAPARIN 40 MG/0.4 ML (LOVENOX) SYR SC SCH (06:15)
--- NOTE | 2022-03-30 06:17 | Progress Note - Hospitalist ---
Subjective HPI/CC On Admission Date Seen by Provider: March 30, 2022 Time Seen by Provider: 10:00 PT ARRIVES VIA EMS FROM HOME--LIVES WITH HER SISTER AND [id number] WAS REPORTED TO EMS THAT PT HAS BEEN SICK FOR THE PAST FEW DAYS WITH FEVER AND DIARRHEA HAS NOT BEEN OUT OF BED FOR THE LAST 2 DAYS, PER EMS. TEMP IS 103.4 FOR EMS--PT UNAWARE OF FEVER BP 80'S/50'S, HR IN 140'S FOR EMS PT HAS COPD AND CONTINUES TO SMOKE. DOES NOT HAVE HOME O2 EMS REPORT THAT PT BECAME VERY SHORT OF BREATH VERY EASILY WITH MINIMAL EFFORT AT THE RESIDENCE. PT C/O PAIN TO LEFT RIBS FOR THE LAST WEEK. HURTS TO BREATHE OR MOVE STATES SHE DID FALL OVER A WEEK AGO, BUT HAS NOT SEEN ANYONE FOR THAT PROBLEM HAS A FREQUENT COUGH--PT STATES IS NORMAL FOR HER DENIES NAUSEA DENIES ABDOMINAL PAIN DOES NOT KNOW WHEN SHE LAST VOIDED DOES NOT KNOW WHEN SHE LAST ATE OR DRANK, BUT STATES SHE IS VERY THIRSTY NOW. CANNOT STATE WHY SHE HAS NOT BEEN EATING OR DRINKING. PT ALSO HAS HISTORY OF HTN, WELL CAD WITH STENTS IN 2009 PT ALSO HAS BEEN DX WITH DIABETES AND BEEN ON INSULIN IN THE PAST, BUT HAD QUIT TAKING IT 11 YEARS AGO PT WAS SEEN HERE 01/16/22--PT HAD NOT SEEN A DR IN AT LEAST 12 YEARS AT THAT TIME PT WAS ADMITTED AT THAT TIME WITH MULTIPLE PROBLEMS, INCLUDING SEVERE SEPSIS, UTI, CHF, PNEUMONIA, NSTEMI. 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 PT CANNOT STATE WHAT WAS DONE WHEN SHE WAS AT SHE STATES SHE HAS MEDICATION AT HOME, BUT DOES NOT KNOW WHAT MEDICATION SHE IS ON OR WHAT SHE TAKES IT FOR STATES SHE DOES NOT KNOW IF SHE TOOK HER MEDICATIONS TODAY OR NOT, OR WHEN SHE MIGHT HAVE LAST TAKEN ANY MEDICATION HAS NOT SOUGHT CARE UNTIL TONIGHT FOR THESE PROBLEMS STATES SHE "DOESN'T KNOW" WHY SHE DID NOT SEEK CARE PRIOR TO TONIGHT. Upon my arrival patient was somnolent would open up her eyes begin to answer question would trail off and she would fall back asleep. She did deny headache and denied pain. At baseline reportedly a poor historian. She had been scheduled for biopsy of a right adnexal mass suspicious for malignancy but did not stop her Plavix apparently was being rescheduled. She denied leg pain and there have been no reports of leg pain with known severe peripheral vascular disease. Subjective/Events-last exam Pt is stable Off Levophed Transferring to the floor Really needs comfort care I did update her friend and decision maker Overall has a very poor prognosis Lungs are very coarse, likely unable to clear secretions now Review of Systems General: Fatigue, Malaise Focused Exam Time of Focused Exam: 01:00 Objective Exam Vital Signs Vital Signs Date Time Temp Pulse Resp B/P (MAP) Pulse Ox O2 Delivery O2 Flow Rate FiO2 03/31/22 03:57 37.3 84 20 93/60 95 Nasal Cannula 4.00 03/27/22 09:00 21 Capillary Refill : Less Than 3 Seconds General Appearance: No Apparent Distress, WD/WN, Chronically ill, Thin Respiratory: No Accessory Muscle Use, No Respiratory Distress, Crackles, Rales Cardiovascular: Regular Rate, Rhythm Neurologic/Psychiatric: Alert, Disoriented Results/Procedures Lab Patient resulted labs reviewed. Assessment/Plan Assessment and Plan Assess & Plan/Chief Complaint (1) Septic shock Status: Acute Assessment & Plan: Uncertain etiology, initially with diarrhea and fever. C diff neg. Urine culture no growth. Blood cultures no growth to date. Possible pn eumonia, but CT chest has had similar findings for chronic time period. Continue cefepime. Norepinephrine and LR. Appreciate Tsering ICU assistance. 03/24- holding IVF and giving lasix this am due to increasing swelling and worsening hypoxia overnight. Continue cefepime. 03/25- requiring both vasopressin and norepinephrine overnight, but vasopressin held again this am. Remains on cefepime. 03/26- cefepime completed, on norepinephrine alone still, new meds per Cardiology and attempting to wean norepi. 03/27patient continues to be maintained on norepinephrine 03/27patient continues to be maintained on norepinephrine 03/27patient DC norepinephrine (2) Pneumonia Status: Acute Assessment & Plan: Bilateral multifocal, concerning for possible underlying malignancy, particularly as findings are not new and she has been on more than one course of antibiotics. Continue cefepime for now. s/p cefepime x 5 days Qualifiers: (3) Adnexal mass Status: Acute Assessment & Plan: Was scheduled for biopsy outpatient, but was unable to be done due to blood thinners, holding currently, but given severity of current illness, not likely able to get done currently. Discussed difficulty in prognostic planning without biopsy. (4) CAD (coronary artery disease) Status: Chronic Assessment & Plan: Severe multivessel disease both coronary and peripheral, holding antiplatelets in hopes of biopsy shortly. (5) NSTEMI (non-ST elevated myocardial infarction) Status: Acute Assessment & Plan: Mild troponin elevation, appreciate Cardiology recommendations. Known severe CAD and multiple other vascular occlusions, was referred for CABG but had possible stroke and was deferred, has outpatient appt with Dr. Damon. Holding antiplatelets due to need for adnexal mass biopsy. (6) Cardiomyopathy Status: Chronic Qualifiers: Qualified Codes: I25.5 - Ischemic cardiomyopathy (7) Tobacco abuse Status: Chronic (8) HLD (hyperlipidemia) Status: Chronic (9) T2DM (type 2 diabetes mellitus) Status: Chronic Assessment & Plan: Sliding scale insulin protocol Qualifiers: Qualified Codes: E11.69 - Type 2 diabetes mellitus with other specified complication (10) HFrEF (heart failure with reduced ejection fraction) Status: Chronic Assessment & Plan: EF 30-35% 03/20/22. Appreciate Cardiology recommendations. 03/24 lasix 40 mg IV today, monitor BP closely 03/25- had low bp after lasix yesterday, but BNP is significantly up and CXR with worsening appearance, will defer to [facility] ICU and Cardiology on repeat lasix (11) Lactic acidosis Status: Resolved (12) Peripheral arterial disease Status: Chronic (13) Acute renal failure Status: Resolved (14) Carotid artery disease Status: Chronic (15) Acute respiratory failure Status: Acute Assessment & Plan: 03/25- Secondary to pneumonia, sepsis, possible underlying pulmonary mets. Now frequently requiring bipap. Discussed her tenuous status, she wants to stay full code and to be intubated if needed. Qualifiers: Qualified Codes: J96.01 - Acute respiratory failure with hypoxia (16) DVT prophylaxis Status: Acute Assessment & Plan: Enoxaparin Plan: Guarded prognosis poor Supportive care 03/29/22: DNR due to futility discussed with her best friend who manages patient DC pressor 03/30/22: Move to floor Needs comfort care Critical Care Critically Ill Patient ORTEGA,MISSY BURNHAM March 30, 2022 06:17
[2022-03-30] MEDS: POTASSIUM CL 10MEQ/50ML IVPB 50 ML IV SCH (06:27)
[2022-03-30] MEDS: MAGNESIUM 1 GM/100 ML IVPB 100 ML IV SCH (06:28)
[2022-03-30] MEDS ORDERED: KCL 20 MEQ TAB (K-DUR) PO ONE ×3 (06:30→08:30)
[2022-03-30] MEDS: KCL 20 MEQ TAB (K-DUR) PO SCH (06:31)
[2022-03-30] MEDS: VASOPRESSIN INJECTION 20 UNIT in NS (IVPB) 100 ML IV SCH (07:56)
[2022-03-30] MEDS: PANTOPRAZOLE 40 MG (PROTONIX) VIAL IV SCH (08:13)
[2022-03-30] MEDS: MIDODRINE 10 MG (PROAMATINE) TAB PO SCH ×3 (08:14→19:56)
[2022-03-30] MEDS: ASPIRIN E.C. 81 MG (ECOTRIN) TAB PO SCH (08:14)
[2022-03-30] MEDS ORDERED: morphine INJ 10 MG/ML 1ML (SYR OR VIAL) IVP PRN (09:15)
--- NOTE | 2022-03-30 09:22 | Physical Therapy Daily Note ---
PT Daily Note-Current Subjective Patient in bed pre tx, agrees to PT, has no complaints of pain. Got a message to check with nurse before seeing this patient because they are having worse medical issues. Nurse Pacheco states patient should be able to perform exercises or ROM in bed. Appearance Patient in bed post tx with nurse call, phone, tray, all needs met. Mental Status Patient Orientation: Person, Place, Situation Attachments: Oxygen, Lang Catheter, IV Transfers SCALE: Activities may be completed with or without assistive devices. 5-Lsanuacntj-hrjjapt completes the activity by him/herself with no assistance from a helper. 5-Set-up or Clean-up Assistance-helper sets up or cleans up; patient completes activity. Hardy assists only prior to or following the activity. 4-Supervision or Touching Assistance-helper provides verbal cues and/or touching/steadying and/or contact guard assistance as patient completes activity. Assistance may be provided throughout the activity or intermittently. 3-Partial/Moderate Assistance-helper does LESS THAN HALF the effort. Hardy lifts, holds or supports trunk or limbs, but provides less than half the effort. 2-Substantial/Maximal Assistance-helper does MORE THAN HALF the effort. Hardy lifts or holds trunk or limbs and provides more than half the effort. 5-Tseezcrjr-sxsklv does ALL the effort. Patient does none of the effort to complete the activity. Or, the assistance of 2 or more helpers is required for the patient to complete the activity. If activity was not attempted, code reason: 7-Patient Refused. 9-Not Applicable-not attempted and the patient did not perform the activity before the current illness, exacerbation or injury. 10-Not Attempted due to Environmental Limitations-(lack of equipment, weather restraints, etc.). 88-Not Attempted due to Medical Conditions or Safety Concerns. Exercises Supine Ex: Ankle pumps, Quad Set, Glut sets, Heel Slides, Straight leg raise (AAROM), Hip abd/add (AAROM) Supine Reps: 20 Treatments LE exercise/ROM Assessment Current Status: Poor Progress Patient needed many rest breaks, cues to remind patient what she was doing. Patient appears very anxious, states several times "sorry for freaking out". PT Fdc Goals Record Press Supervisor Goals PT Record Press Supervisor Goals Time Frame: Apr 24, 2022 Roll Left & Right (QC): 4 Sit to Lying (QC): 4 Lying-Sitting on Side/Bed(QC): 4 Sit to Stand (QC): 4 Chair/Ykq-ct-Tofwv Xfer(QC): 4 Toilet Transfer (QC): 4 Walk 10 feet (QC): 2 PT Plan Problem List Problem List: Activity Tolerance, Functional Strength, Safety, Balance, Gait, Transfer, Bed Mobility, ROM Treatment/Plan Treatment Plan: Continue Plan of Care Treatment Plan: Bed Mobility, Education, Functional Activity Roya, Functional Strength, Gait, Safety, Therapeutic Exercise, Transfers Treatment Duration: Apr 24, 2022 Frequency: 6 times per week Estimated Hrs Per Day: .25 hour per day Patient and/or Family Agrees t: Yes Safety Risks/Education Patient Education: Correct Positioning, Safety Issues Teaching Recipient: Patient Teaching Methods: Demonstration, Discussion Response to Teaching: Reinforcement Needed Time/GCodes Time In: 0858 Time Out: 0908 Total Billed Treatment Time: 10 Total Billed Treatment 1 visit EX 10DANILO CHAUHAN PT March 30, 2022 09:22
--- NOTE | 2022-03-30 09:53 | Cardiology Progress Note ---
Progress Note-Cardiology Events since last exam Date Seen by Provider: March 30, 2022 Time Seen by Provider: 09:52 Events since last exam I am following her due to NSTEMI and cardiomyopathy with heart failure. She remains in the intensive care unit but will be transferred to the medical floor when a bed becomes available. She was somewhat dysarthric this morning. She denies chest discomfort, dyspnea, palpitations, syncope, or ankle edema. She is thinking of changing her status to comfort care. Certain portions of this document may have been dictated utilizing voice recognition technology. Inherent to this technology, typographical and grammatical errors may exist. As much as I am diligent to identify and correct these mistakes, some errors may remain in the document. Vitals Last set of Vitals Signs Vital Signs 03/27/22 03/30/22 03/30/22 03/30/22 09:00 09:46 11:00 14:13 Temp 36.0 Pulse 77 Resp 30 B/P (MAP) 107/65 Pulse Ox 95 O2 Delivery Room Air O2 Flow Rate 4.00 FiO2 21 Labs Labs Laboratory Tests 03/30/22 05:11 Exam Vital Signs Vital Signs Date Time Temp Pulse Resp B/P (MAP) Pulse Ox O2 Delivery O2 Flow Rate FiO2 03/30/22 14:13 36.0 77 95 03/30/22 11:00 30 107/65 Room Air 03/30/22 09:46 4.00 03/27/22 09:00 21 Physical Exam General: Alert. No acute distress. She has mild dysarthria which is new. Despite this, she is oriented. She appears chronically ill and older than her stated age. Eye: No xanthelasma. HENT: Normocephalic. Neck: Jugular venous pressure does not appear elevated. Respiratory: Lungs are clear to auscultation. Respirations are non-labored. Breath sounds are equal. Symmetrical chest wall expansion. Cardiovascular: Normal rate. Regular rhythm. No murmur. No gallop. No edema. Gastrointestinal: Soft. Normal bowel sounds. Skin: Warm. Dry. Neurologic: Alert and oriented to person, place, time. Cranial nerves 3-11 grossly intact. Psychiatric: Cooperative. Appropriate mood & affect. Labs Laboratory Tests Test 03/29/22 16:19 03/29/22 20:37 03/30/22 05:11 03/30/22 10:59 Range/Units Glucometer 159 H 352 H 84 70-110 MG/DL White Blood Count 8.8 4.3-11.0 10^3/uL Red Blood Count 3.40 L 3.80-5.11 10^6/uL Hemoglobin 10.3 L 11.5-16.0 g/dL Hematocrit 32 L 35-52 % Mean Corpuscular Volume 93 80-99 fL Mean Corpuscular Hemoglobin 30 25-34 pg Mean Corpuscular Hemoglobin Concent 33 32-36 g/dL Red Cell Distribution Width 16.1 H 10.0-14.5 % Platelet Count 218 130-400 10^3/uL Mean Platelet Volume 11.3 9.0-12.2 fL Immature Granulocyte % (Auto) 1 % Neutrophils (%) (Auto) 89 H 42-75 % Lymphocytes (%) (Auto) 5 L 12-44 % Monocytes (%) (Auto) 4 0-12 % Eosinophils (%) (Auto) 1 0-10 % Basophils (%) (Auto) 0 0-10 % Neutrophils # (Auto) 7.8 1.8-7.8 10^3/uL Lymphocytes # (Auto) 0.5 L 1.0-4.0 10^3/uL Monocytes # (Auto) 0.4 0.0-1.0 10^3/uL Eosinophils # (Auto) 0.1 0.0-0.3 10^3/uL Basophils # (Auto) 0.0 0.0-0.1 10^3/uL Immature Granulocyte # (Auto) 0.1 0.0-0.1 10^3/uL Sodium Level 137 135-145 MMOL/L Potassium Level 3.3 L 3.6-5.0 MMOL/L Chloride Level 94 L 98-107 MMOL/L Carbon Dioxide Level 29 21-32 MMOL/L Anion Gap 14 5-14 MMOL/L Blood Urea Nitrogen 19 H 7-18 MG/DL Creatinine 0.62 0.60-1.30 MG/DL Estimat Glomerular Filtration Rate 103 BUN/Creatinine Ratio 31 Glucose Level 65 L 70-105 MG/DL Calcium Level 8.8 8.5-10.1 MG/DL Corrected Calcium 10.1 8.5-10.1 MG/DL Phosphorus Level 2.8 2.3-4.7 MG/DL Magnesium Level 1.9 1.6-2.4 MG/DL Total Bilirubin 0.4 0.1-1.0 MG/DL Aspartate Amino Transf (AST/SGOT) 26 5-34 U/L Alanine Aminotransferase (ALT/SGPT) 16 0-55 U/L Alkaline Phosphatase 80 40-136 U/L Total Protein 6.5 6.4-8.2 GM/DL Albumin 2.4 L 3.2-4.5 GM/DL Diagnosis/Problems Diagnosis/Problems (1) Non-ST elevation myocardial infarction (NSTEMI), initial care episode Assessment & Plan: She appears to have suffered another non-ST elevation myocardial infarction during this admission. She has known severe three-vessel coronary artery disease. She had been seen by cardiothoracic surgery at [facility] and by report, they did not think she was a good surgical candidate. The plan was for high risk percutaneous coronary intervention but then the patient left AGAINST MEDICAL ADVICE before this could be performed. This was all a few months ago. She is on aspirin and high-dose statin medication. Since she is thinking about going to comfort care, we will hold off on any additional medication or new treatments for the coronary artery disease. (2) Septic shock Status: Acute Assessment & Plan: She had continued on norepinephrine infusion now for the better part of this hospitalization. I did review her hemodynamics from the cardiac catheterization in December and there was a 30 mmHg discrepancy between her central aortic pressure and blood pressure on her left arm recorded simultaneously. As such, we can add approximately 30 mmHg to the blood pressure we are getting from her upper extremities and that should be a reasonably close estimation of her central aortic pressure. I discontinued norepinephrine infusion on 03/29. We will continue midodrine to help support her blood pressure. (3) Ischemic cardiomyopathy Status: Chronic Assessment & Plan: She has moderate left ventricular systolic dysfunction. I will hold off on adding any of the usual guideline directed medical therapy due to the low blood pressure and her decision to possibly change treatment goals. (4) Chronic HFrEF (heart failure with reduced ejection fraction) Assessment & Plan: Although her BNP level was elevated, this was in the setting of sepsis and acute kidney injury. As above, no new treatment or evaluation will be pursued unless the patient changes her mind about comfort care. (5) Peripheral arterial disease Status: Chronic Assessment & Plan: She most likely also has extensive peripheral vascular disease as noted on her previous cardiac catheterization. We will continue aspirin and high-dose statin medication. As above, this is causing issues with accurately recording noninvasive blood pressures. (6) Acute kidney injury Assessment & Plan: Her creatinine was elevated at the time of admission. This has now improved. (7) Adnexal mass Status: Acute Assessment & Plan: We will continue to hold clopidogrel until she has a biopsy of this mass. Aspirin should not be a contraindication to a biopsy. (8) Type 2 diabetes mellitus with complication Assessment & Plan: This is being managed by the hospitalist. (9) Cigarette smoker Status: Chronic Assessment & Plan: She needs to quit smoking. She has been counseled about this on several occasions. JACQUELYN OSORIO JR, MD March 30, 2022 09:53
[2022-03-30 14:13] VITALS: BP 107/65
[2022-03-31] MEDS: RT-ALBUTEROL/IPRATROPIUM 3 ML (DUONEB) VIAL INH SCH ×4 (02:48→21:58)
[2022-03-31] MEDS: ENOXAPARIN 40 MG/0.4 ML (LOVENOX) SYR SC SCH (05:33)
[2022-03-31] MEDS: inSUlin ASPART (NovoLOG) 1 UNIT/0.01 ML (CHARGE PER UNIT) SC SCH ×4 (05:33→20:56)
--- NOTE | 2022-03-31 06:31 | Progress Note - Hospitalist ---
Subjective HPI/CC On Admission Date Seen by Provider: Mar 31, 2022 Time Seen by Provider: 10:00 PT ARRIVES VIA EMS FROM HOME--LIVES WITH HER SISTER AND [id number] WAS REPORTED TO EMS THAT PT HAS BEEN SICK FOR THE PAST FEW DAYS WITH FEVER AND DIARRHEA HAS NOT BEEN OUT OF BED FOR THE LAST 2 DAYS, PER EMS. TEMP IS 103.4 FOR EMS--PT UNAWARE OF FEVER BP 80'S/50'S, HR IN 140'S FOR EMS PT HAS COPD AND CONTINUES TO SMOKE. DOES NOT HAVE HOME O2 EMS REPORT THAT PT BECAME VERY SHORT OF BREATH VERY EASILY WITH MINIMAL EFFORT AT THE RESIDENCE. PT C/O PAIN TO LEFT RIBS FOR THE LAST WEEK. HURTS TO BREATHE OR MOVE STATES SHE DID FALL OVER A WEEK AGO, BUT HAS NOT SEEN ANYONE FOR THAT PROBLEM HAS A FREQUENT COUGH--PT STATES IS NORMAL FOR HER DENIES NAUSEA DENIES ABDOMINAL PAIN DOES NOT KNOW WHEN SHE LAST VOIDED DOES NOT KNOW WHEN SHE LAST ATE OR DRANK, BUT STATES SHE IS VERY THIRSTY NOW. CANNOT STATE WHY SHE HAS NOT BEEN EATING OR DRINKING. PT ALSO HAS HISTORY OF HTN, WELL CAD WITH STENTS IN 2009 PT ALSO HAS BEEN DX WITH DIABETES AND BEEN ON INSULIN IN THE PAST, BUT HAD QUIT TAKING IT 11 YEARS AGO PT WAS SEEN HERE 01/16/22--PT HAD NOT SEEN A DR IN AT LEAST 12 YEARS AT THAT TIME PT WAS ADMITTED AT THAT TIME WITH MULTIPLE PROBLEMS, INCLUDING SEVERE SEPSIS, UTI, CHF, PNEUMONIA, NSTEMI. 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 PT CANNOT STATE WHAT WAS DONE WHEN SHE WAS AT SHE STATES SHE HAS MEDICATION AT HOME, BUT DOES NOT KNOW WHAT MEDICATION SHE IS ON OR WHAT SHE TAKES IT FOR STATES SHE DOES NOT KNOW IF SHE TOOK HER MEDICATIONS TODAY OR NOT, OR WHEN SHE MIGHT HAVE LAST TAKEN ANY MEDICATION HAS NOT SOUGHT CARE UNTIL TONIGHT FOR THESE PROBLEMS STATES SHE "DOESN'T KNOW" WHY SHE DID NOT SEEK CARE PRIOR TO TONIGHT. Upon my arrival patient was somnolent would open up her eyes begin to answer question would trail off and she would fall back asleep. She did deny headache and denied pain. At baseline reportedly a poor historian. She had been scheduled for biopsy of a right adnexal mass suspicious for malignancy but did not stop her Plavix apparently was being rescheduled. She denied leg pain and there have been no reports of leg pain with known severe peripheral vascular disease. Subjective/Events-last exam Pt is about the same Lungs remain clearer than yesterday Bowels are moving now Hospice will be an option but she is self pay Will discontinue the catheter Review of Systems General: Fatigue, Malaise Pulmonary: Dyspnea, Cough Focused Exam Time of Focused Exam: 01:00 Objective Exam Vital Signs Vital Signs Date Time Temp Pulse Resp B/P (MAP) Pulse Ox O2 Delivery O2 Flow Rate FiO2 04/01/22 03:45 96 Non Rebreather 15.00 04/01/22 03:16 35.8 133 46 141/87 03/27/22 09:00 21 Capillary Refill : Less Than 3 Seconds General Appearance: No Apparent Distress, WD/WN, Chronically ill Respiratory: No Accessory Muscle Use, No Respiratory Distress, Decreased Breath Sounds Cardiovascular: Regular Rate, Rhythm Neurologic/Psychiatric: Alert, Disoriented Results/Procedures Lab Patient resulted labs reviewed. Assessment/Plan Assessment and Plan Assess & Plan/Chief Complaint (1) Septic shock Status: Acute Assessment & Plan: Uncertain etiology, initially with diarrhea and fever. C diff neg. Urine culture no growth. Blood cultures no growth to date. Possible pneumonia, but CT chest has had similar findings for chronic time period. Continue cefepime. Norepinephrine and LR. Appreciate Tsering ICU assistance. 03/24- holding IVF and giving lasix this am due to increasing swelling and worsening hypoxia overnight. Continue cefepime. 03/25- requiring both vasopressin and norepinephrine overnight, but vasopressin held again this am. Remains on cefepime. 03/26- cefepime completed, on norepinephrine alone still, new meds per Cardiology and attempting to wean norepi. 03/27patient continues to be maintained on norepinephrine 03/27patient continues to be maintained on norepinephrine 03/27patient DC norepinephrine (2) Pneumonia Status: Acute Assessment & Plan: Bilateral multifocal, concerning for possible underlying malignancy, particularly as findings are not new and she has been on more than one course of antibiotics. Continue cefepime for now. s/p cefepime x 5 days Qualifiers: (3) Adnexal mass Status: Acute Assessment & Plan: Was scheduled for biopsy outpatient, but was unable to be done due to blood thinners, holding currently, but given severity of current illness, not likely able to get done currently. Discussed difficulty in prognostic planning without biopsy. (4) CAD (coronary artery disease) Status: Chronic Assessment & Plan: Severe multivessel disease both coronary and peripheral, holding antiplatelets in hopes of biopsy shortly. (5) NSTEMI (non-ST elevated myocardial infarction) Status: Acute Assessment & Plan: Mild troponin elevation, appreciate Cardiology recommendations. Known severe CAD and multiple other vascular occlusions, was referred for CABG but had possible stroke and was deferred, has outpatient appt with Dr. Damon. Holding antiplatelets due to need for adnexal mass biopsy. (6) Cardiomyopathy Status: Chronic Qualifiers: Qualified Codes: I25.5 - Ischemic cardiomyopathy (7) Tobacco abuse Status: Chronic (8) HLD (hyperlipidemia) Status: Chronic (9) T2DM (type 2 diabetes mellitus) Status: Chronic Assessment & Plan: Sliding scale insulin protocol Qualifiers: Qualified Codes: E11.69 - Type 2 diabetes mellitus with other specified complication (10) HFrEF (heart failure with reduced ejection fraction) Status: Chronic Assessment & Plan: EF 30-35% 03/20/22. Appreciate Cardiology recommendations. 03/24 lasix 40 mg IV today, monitor BP closely 03/25- had low bp after lasix yesterday, but BNP is significantly up and CXR with worsening appearance, will defer to [facility] ICU and Cardiology on repeat lasix (11) Lactic acidosis Status: Resolved (12) Peripheral arterial disease Status: Chronic (13) Acute renal failure Status: Resolved (14) Carotid artery disease Status: Chronic (15) Acute respiratory failure Status: Acute Assessment & Plan: 03/25- Secondary to pneumonia, sepsis, possible underlying pulmonary mets. Now frequently requiring bipap. Discussed her tenuous status, she wants to stay full code and to be intubated if needed. Qualifiers: Qualified Codes: J96.01 - Acute respiratory failure with hypoxia (16) DVT prophylaxis Status: Acute Assessment & Plan: Enoxaparin Plan: Guarded prognosis poor Supportive care 03/29/22: DNR due to futility discussed with her best friend who manages patient DC pressor 03/30/22: Move to floor Needs comfort care 03/31/22: Needs comfort care Self pay limits placement Critical Care Critically Ill Patient MISSY ORTEGA DO Mar 31, 2022 06:31
[2022-03-31] MEDS: ASPIRIN E.C. 81 MG (ECOTRIN) TAB PO SCH (09:36)
[2022-03-31] MEDS: PANTOPRAZOLE 40 MG (PROTONIX) TAB PO SCH (09:36)
--- NOTE | 2022-03-31 09:46 | Cardiology Progress Note ---
Progress Note-Cardiology Events since last exam Date Seen by Provider: Mar 31, 2022 Time Seen by Provider: 09:45 Events since last exam I am following her due to NSTEMI and heart failure. On 03/30 she was transferred out of the intensive care unit to the medical unit. This morning she was sittin g up in a chair. On 03/30 she had dysarthria but today this is not evident. She denies chest discomfort, dyspnea at rest, palpitations, syncope, or ankle edema. She wants to go home. Her nurse told me that it took 3 staff members to get her out of bed and into a chair because she is so weak. Certain portions of this document may have been dictated utilizing voice recognition technology. Inherent to this technology, typographical and grammatical errors may exist. As much as I am diligent to identify and correct these mistakes, some errors may remain in the document. Vitals Last set of Vitals Signs Vital Signs 03/27/22 03/31/22 03/31/22 09:00 03:57 11:35 Temp 36.8 Pulse 83 Resp 22 B/P (MAP) 84/51 Pulse Ox 93 O2 Delivery Room Air O2 Flow Rate 4.00 FiO2 21 Exam Vital Signs Vital Signs Date Time Temp Pulse Resp B/P (MAP) Pulse Ox O2 Delivery O2 Flow Rate FiO2 03/31/22 11:35 36.8 83 22 84/51 93 Room Air 03/31/22 03:57 4.00 03/27/22 09:00 21 Physical Exam General: Alert. No acute distress. She appears chronically ill and older than her stated age. Eye: No xanthelasma. HENT: Normocephalic. Neck: Jugular venous pressure does not appear elevated. Respiratory: Lungs are clear to auscultation. Respirations are non-labored. B reath sounds are equal. Symmetrical chest wall expansion. Cardiovascular: Normal rate. Regular rhythm. No murmur. No gallop. No edema. Gastrointestinal: Soft. Normal bowel sounds. Skin: Warm. Dry. Neurologic: Alert and oriented to person, place, time. Cranial nerves 3-11 grossly intact. Psychiatric: Cooperative. Appropriate mood & affect. Labs Laboratory Tests Test 03/30/22 16:28 03/30/22 20:46 03/31/22 05:32 6/1/22 10:20 Range/Units Glucometer 168 H 126 H 128 H 214 H 70-110 MG/DL Diagnosis/Problems Diagnosis/Problems (1) Non-ST elevation myocardial infarction (NSTEMI), initial care episode Assessment & Plan: She appears to have suffered another non-ST elevation myocardial infarction during this admission. She has known severe three-vessel coronary artery disease. She had been seen by cardiothoracic surgery at [facility] and by report, they did not think she was a good surgical candidate. The plan was for high risk percutaneous coronary intervention but then the patient left AGAINST MEDICAL ADVICE before this could be performed. This was all a few months ago. She is on aspirin and high-dose statin medication. She is not taking clopidogrel or any other antiplatelet agent because surgery was thinking about doing a biopsy of her pelvic mass. She is not on beta-laing due to hypotension. Since she is thinking about going to comfort care, we will hold off on any additional medication or new treatments for the coronary artery disease. (2) Ischemic cardiomyopathy Status: Chronic Assessment & Plan: She has moderate left ventricular systolic dysfunction. I will hold off on adding any of the usual guideline directed medical therapy due to the low blood pressure and her decision to possibly change treatment goals. (3) Chronic HFrEF (heart failure with reduced ejection fraction) Assessment & Plan: Although her BNP level was elevated, this was in the setting of sepsis and acute kidney injury. As above, no new treatment or evaluation will be pursued unless the patient changes her mind about comfort care. (4) Peripheral arterial disease Status: Chronic Assessment & Plan: She most likely also has extensive peripheral vascular disease as noted on her previous cardiac catheterization. We will continue aspirin and high-dose statin medication. As above, this is causing issues with accurately recording noninvasive blood pressures from any of her extremities. (5) Septic shock Status: Acute Assessment & Plan: She had continued on norepinephrine infusion now for the better part of this hospitalization. I did review her hemodynamics from the cardiac catheterization in December and there was a 30 mmHg discrepancy between her central aortic pressure and blood pressure on her left arm recorded simultaneously. As such, we can add approximately 30 mmHg to the blood pressure we are getting from her upper extremities and that should be a reasonably close estimation of her central aortic pressure. I discontinued norepinephrine infusion on 03/29. We will continue midodrine to help support her blood pressure. As above, due to her persistently low blood pressures, she is not a candidate for beta-liang, SHEILA inhibitor, ARB or aldosterone antagonists. (6) Acute kidney injury Assessment & Plan: Her creatinine was elevated at the time of admission. This has now improved. (7) Adnexal mass Status: Acute Assessment & Plan: We will continue to hold clopidogrel until she has a biopsy of this mass. Aspirin should not be a contraindication to a biopsy. (8) Type 2 diabetes mellitus with complication Assessment & Plan: This is being managed by the hospitalist. (9) Cigarette smoker Status: Chronic Assessment & Plan: She needs to quit smoking. She has been counseled about this on several occasions. JACQUELYN OSORIO JR, MD Mar 31, 2022 09:46
[2022-03-31] MEDS: MIDODRINE 10 MG (PROAMATINE) TAB PO SCH ×3 (09:55→19:33)
--- NOTE | 2022-03-31 10:22 | Physical Therapy Daily Note ---
PT Daily Note-Current Subjective Pt. up in recliner, pt. questioning why her left leg is so weak. Nursing enters during beginning of Rx and shares that pt. had incident during TRF to chair this morning. Nursing asks that pt not walk at this time. Nursing concerned with a low BP issue Pain Location: No Pain Reported Mental Status Patient Orientation: Person, Place Attachments: Lang Catheter Transfers SCALE: Activities may be completed with or without assistive devices. 1-Vgohadthyb-ygtgcmb completes the activity by him/herself with no assistance from a helper. 5-Set-up or Clean-up Assistance-helper sets up or cleans up; patient completes activity. [place] assists only prior to or following the activity. 4-Supervision or Touching Assistance-helper provides verbal cues and/or touching/steadying and/or contact guard assistance as patient completes activity. Assistance may be provided throughout the activity or intermittently. 3-Partial/Moderate Assistance-helper does LESS THAN HALF the effort. [place] lifts, holds or supports trunk or limbs, but provides less than half the effort. 2-Substantial/Maximal Assistance-helper does MORE THAN HALF the effort. [place] lifts or holds trunk or limbs and provides more than half the effort. 7-Hbmskrzvf-lriafj does ALL the effort. Patient does none of the effort to complete the activity. Or, the assistance of 2 or more helpers is required for the patient to complete the activity. If activity was not attempted, code reason: 7-Patient Refused. 9-Not Applicable-not attempted and the patient did not perform the activity before the current illness, exacerbation or injury. 10-Not Attempted due to Environmental Limitations-(lack of equipment, weather restraints, etc.). 88-Not Attempted due to Medical Conditions or Safety Concerns. shifted forward and back in seat of chair only, on 3 attempts to stand pt.to her feet right at chair, pt. expressed fear and never completely eric to her feet. appears self limiting and fearful as she shares her past falls at home etc Exercises Seated Therapy Exercises: Ankle pumps, Long arc quads, Hip flexion, Hip abd/add Seated Reps: 15 Treatments pt. with LLE weakness required assist for all therex LLE AAROM Assessment Current Status: Fair Progress dependent for all TRFs, low BP issues, pt. up in recliner with gerard at hand and nursing in room PT Cofounder Goals Cofounder Goals PT Cofounder Goals Time Frame: Apr 24, 2022 Roll Left & Right (QC): 4 Sit to Lying (QC): 4 Lying-Sitting on Side/Bed(QC): 4 Sit to Stand (QC): 4 Chair/Qyo-gq-Ndfsw Xfer(QC): 4 Toilet Transfer (QC): 4 Walk 10 feet (QC): 2 PT Plan Treatment/Plan Treatment Plan: Continue Plan of Care Treatment Plan: Bed Mobility, Education, Functional Activity Roya, Functional Strength, Gait, Safety, Therapeutic Exercise, Transfers Treatment Duration: Apr 24, 2022 Frequency: 6 times per week Estimated Hrs Per Day: .25 hour per day Patient and/or Family Agrees t: Yes Safety Risks/Education Patient Education: Transfer Techniques, Correct Positioning, Safety Issues Teaching Recipient: Patient Teaching Methods: Discussion Response to Teaching: Reinforcement Needed Time/GCodes Time In: 945 Time Out: 956 Total Billed Treatment Time: 13 Total Billed Treatment 1,EX13m KIRBY WHITTEN HYPERION ESSBASE DEVELOPER Mar 31, 2022 10:22
--- NOTE | 2022-03-31 11:57 | Occupational Therapy Eval ---
OT Evaluation-General/PLF Medical Diagnosis Admission Date March 20, 2022 at 02:35 Medical Diagnosis: sepsis/pneumonia Onset Date: March 20, 2022 Therapy Diagnosis Therapy Diagnosis: reduced adl status Height/Weight Weight (Pounds): 146 Precautions Precautions/Isolations: Fall Prevention, Standard Precautions Referral Physician: Buddy Referral Reason: Evaluation/Treatment Medical History Pertinent Medical History: CABG, CAD, DM, HTN, PVD, Renal Insufficiency Current History Pt presents to hospital with SOA, fever, and diarrhea. Found to have sepsis/pneumonia. Per patient, she lives in a single story home with a friend, Mely. She was indep with adls and shares iadl responsibilities with her roommate. 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 She was not using any AD at baseline. Social History Home: Single Level Current Living Status: Friend ADL-Prior Level of Function SCALE: Activities may be completed with or without assistive devices. 5-Sofnnbjvxx-yyoqimf completes the activity by him/herself with no assistance from a helper. 5-Set-up or Clean-up Assistance-helper sets up or cleans up; patient completes activity. [place] assists only prior to or following the activity. 4-Supervision or Touching Assistance-helper provides verbal cues and/or touching/steadying and/or contact guard assistance as patient completes activity. Assistance may be provided throughout the activity or intermittently. 3-Partial/Moderate Assistance-helper does LESS THAN HALF the effort. [place] lifts, holds or supports trunk or limbs, but provides less than half the effort. 2-Substantial/Maximal Assistance-helper does MORE THAN HALF the effort. [place] lifts or holds trunk or limbs and provides more than half the effort. 0-Srulzshrb-scabuc does ALL the effort. Patient does none of the effort to complete the activity. Or, the assistance of 2 or more helpers is required for the patient to complete the activity. If activity was not attempted, code reason: 7-Patient Refused. 9-Not Applicable-not attempted and the patient did not perform the activity before the current illness, exacerbation or injury. 10-Not Attempted due to Environmental Limitations-(lack of equipment, weather restraints, etc.). 88-Not Attempted due to Medical Conditions or Safety Concerns. Self Care: Independent Functional Cognition: Independent DME/Equipment: Grab Bars, Tub/Shower Drive Self: Yes OT Current Status Subjective Pt denies pain but reports feeling very tired. Appearance Pt left sitting in recliner, all needs within reach. Mental Status/Objective Patient Orientation: Person, Place Attachments: Lorenz Catheter, IV Current Hand Dominance: Left Upper Extremity ROM WNL Upper Extremity Strength Debilitated, 3/5 throughout ADL-Treatment Eating (QC): 5 Oral Hygiene (QC): 4 Lower Body Dressing (QC): 1 (per clinical judgment) On/Off Footwear (QC): 2 Toileting Hygiene (QC): 1 (lorenz catheter) Pt sliding out of chair at OT arrival. Assist x2 to scoot hips towards back of chair. Per chart, pt required assist x3 to transfer from bed to chair this date. BP at start of eval, 84/51. Pt verbalizes that her LLE is very weak and she is now fearful of standing. At this time, pt would require at least 2 people assist for all functional standing tasks including clothing management pre/post toileting. While seated in chair, pt was able to don/doff R sock but was dependent for L secondary to weakness and c/o LLE being "heavy." Lunch tray set up by OT, pt needing assist to cut food secondary to weakness. No assist needed to bring fork to mouth. Education OT Patient Education: Correct positioning, Purpose of tx/functional activities, Safety issues, Transfer techniques Teaching Recipient: Patient Teaching Methods: Demonstration, Discussion Response to Teaching: Verbalize Understanding, Return Demonstration, Reinforcement Needed OT Duplex Trimmer Goals Usp Goals Time Frame: Apr 21, 2022 Eating (QC): 6 Oral Hygiene (QC): 5 Toileting Hygiene (QC): 4 Shower/Bathe Self (QC): 3 Upper Body Dressing (QC): 4 Lower Body Dressing (QC): 3 On/Off Footwear (QC): 4 1=Demonstrate adherence to instructed precautions during ADL tasks. 2=Patient will verbalize/demonstrate understanding of assistive devices/modifications for ADL. 3=Patient will improve strength/tolerance for activity to enable patient to perform ADL's. OT Education/Plan Problem List/Assessment Assessment: Decreased Activ Tolerance, Decreased Safety Aware, Decreased UE Strength, Dependent Transfers, Impaired Bed Mobility, Impaired Funct Balance, Impaired I ADL's, Impaired Self-Care Skills Discharge Recommendations Plan/Recommendations: Continue POC Therapy Discharge Recommendati: Post Acute OT Treatment Plan/Plan of Care Treatment,Training & Education: Yes Patient would benefit from OT for education, treatment and training to promote independence in ADL's, mobility, safety and/or upper extremity function for ADL's. Plan of Care: ADL Retraining, Functional Mobility, Group Exercise/Act as Ind, UE Funct Exercise/Act Treatment Duration: Apr 21, 2022 Frequency: 3 times per week (3-5x/week) Estimated Hrs Per Day: .25 hour per day Agreement: Yes Rehab Potential: Guarded Time/GCodes Start Time: 11:39 Stop Time: 11:51 Total Time Billed (hr/min): 12 Billed Treatment Time 1 visit Sofi Marquis OT Mar 31, 2022 11:57
[2022-03-31] MEDS ORDERED: NS IV 500 ML 0 ML ONE (19:48)
[2022-04-01] MEDS: RT-ALBUTEROL/IPRATROPIUM 3 ML (DUONEB) VIAL INH SCH ×4 (03:15→19:55)
[2022-04-01] MEDS ORDERED: LORazepam INJ 2 MG/ML (ATIVAN) VIAL IVP PRN (05:15)
[2022-04-01] MEDS: ENOXAPARIN 40 MG/0.4 ML (LOVENOX) SYR SC SCH (05:47)
[2022-04-01] MEDS: inSUlin ASPART (NovoLOG) 1 UNIT/0.01 ML (CHARGE PER UNIT) SC SCH ×4 (05:48→20:35)
--- NOTE | 2022-04-01 06:30 | Progress Note - Hospitalist ---
Subjective HPI/CC On Admission Date Seen by Provider: Apr 01, 2022 Time Seen by Provider: 10:30 PT ARRIVES VIA EMS FROM HOME--LIVES WITH HER SISTER AND [id number]-[id number] WAS REPORTED TO EMS THAT PT HAS BEEN SICK FOR THE PAST FEW DAYS WITH FEVER AND DIARRHEA HAS NOT BEEN OUT OF BED FOR THE LAST 2 DAYS, PER EMS. TEMP IS 103.4 FOR EMS--PT UNAWARE OF FEVER BP 80'S/50'S, HR IN 140'S FOR EMS PT HAS COPD AND CONTINUES TO SMOKE. DOES NOT HAVE HOME O2 EMS REPORT THAT PT BECAME VERY SHORT OF BREATH VERY EASILY WITH MINIMAL EFFORT AT THE RESIDENCE. PT C/O PAIN TO LEFT RIBS FOR THE LAST WEEK. HURTS TO BREATHE OR MOVE STATES SHE DID FALL OVER A WEEK AGO, BUT HAS NOT SEEN ANYONE FOR THAT PROBLEM HAS A FREQUENT COUGH--PT STATES IS NORMAL FOR HER DENIES NAUSEA DENIES ABDOMINAL PAIN DOES NOT KNOW WHEN SHE LAST VOIDED DOES NOT KNOW WHEN SHE LAST ATE OR DRANK, BUT STATES SHE IS VERY THIRSTY NOW. CANNOT STATE WHY SHE HAS NOT BEEN EATING OR DRINKING. PT ALSO HAS HISTORY OF HTN, WELL CAD WITH STENTS IN 2009 PT ALSO HAS BEEN DX WITH DIABETES AND BEEN ON INSULIN IN THE PAST, BUT HAD QUIT TAKING IT 11 YEARS AGO PT WAS SEEN HERE 01/16/22--PT HAD NOT SEEN A DR IN AT LEAST 12 YEARS AT THAT TIME PT WAS ADMITTED AT THAT TIME WITH MULTIPLE PROBLEMS, INCLUDING SEVERE SEPSIS, UTI, CHF, PNEUMONIA, NSTEMI. 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 PT CANNOT STATE WHAT WAS DONE WHEN SHE WAS AT SHE STATES SHE HAS MEDICATION AT HOME, BUT DOES NOT KNOW WHAT MEDICATION SHE IS ON OR WHAT SHE TAKES IT FOR STATES SHE DOES NOT KNOW IF SHE TOOK HER MEDICATIONS TODAY OR NOT, OR WHEN SHE MIGHT HAVE LAST TAKEN ANY MEDICATION HAS NOT SOUGHT CARE UNTIL TONIGHT FOR THESE PROBLEMS STATES SHE "DOESN'T KNOW" WHY SHE DID NOT SEEK CARE PRIOR TO TONIGHT. Upon my arrival patient was somnolent would open up her eyes begin to answer question would trail off and she would fall back asleep. She did deny headache and denied pain. At baseline reportedly a poor historian. She had been scheduled for biopsy of a right adnexal mass suspicious for malignancy but did not stop her Plavix apparently was being rescheduled. She denied leg pain and there have been no reports of leg pain with known severe peripheral vascular disease. Subjective/Events-last exam Pt has some hallucinations last night Lungs are clear Very weak Dr. Preston ordered PT and OT again Needs hospice Review of Systems General: Fatigue, Malaise Focused Exam Time of Focused Exam: 01:00 Objective Exam Vital Signs Vital Signs Date Time Temp Pulse Resp B/P (MAP) Pulse Ox O2 Delivery O2 Flow Rate FiO2 04/02/22 04:15 36.0 92 22 89/65 97 Non Rebreather 10.00 03/27/22 09:00 21 Capillary Refill : Less Than 3 Seconds General Appearance: No Apparent Distress, WD/WN, Chronically ill Respiratory: Lungs Clear, Normal Breath Sounds Cardiovascular: Regular Rate, Rhythm Neurologic/Psychiatric: Alert, Oriented x3, Depressed Affect Results/Procedures Lab Patient resulted labs reviewed. Assessment/Plan Assessment and Plan Assess & Plan/Chief Complaint (1) Septic shock Status: Acute Assessment & Plan: Uncertain etiology, initially with diarrhea and fever. C diff neg. Urine culture no growth. Blood cultures no growth to date. Possible pneumonia, but CT chest has had similar findings for chronic time period. Continue cefepime. Norepinephrine and LR. Appreciate [facility]ing ICU assistance. 03/24- holding IVF and giving lasix this am due to increasing swelling and worsening hypoxia overnight. Continue cefepime. 03/25- requiring both vasopressin and norepinephrine overnight, but vasopressin held again this am. Remains on cefepime. 03/26- cefepime completed, on norepinephrine alone still, new meds per Cardiology and attempting to wean norepi. 03/27patient continues to be maintained on norepinephrine 03/27patient continues to be maintained on norepinephrine 03/27patient DC norepinephrine (2) Pneumonia Status: Acute Assessment & Plan: Bilateral multifocal, concerning for possible underlying malignancy, particularly as findings are not new and she has been on more than one course of antibiotics. Continue cefepime for now. s/p cefepime x 5 days Qualifiers: (3) Adnexal mass Status: Acute Assessment & Plan: Was scheduled for biopsy outpatient, but was unable to be done due to blood thinners, holding currently, but given severity of current illness, not likely able to get done currently. Discussed difficulty in prognostic planning without biopsy. (4) CAD (coronary artery disease) Status: Chronic Assessment & Plan: Severe multivessel disease both coronary and peripheral, holding antiplatelets in hopes of biopsy shortly. (5) NSTEMI (non-ST elevated myocardial infarction) Status: Acute Assessment & Plan: Mild troponin elevation, appreciate Cardiology recommendations. Known severe CAD and multiple other vascular occlusions, was referred for CABG but had possible stroke and was deferred, has outpatient appt with Dr. Damon. Holding antiplatelets due to need for adnexal mass biopsy. (6) Cardiomyopathy Status: Chronic Qualifiers: Qualified Codes: I25.5 - Ischemic cardiomyopathy (7) Tobacco abuse Status: Chronic (8) HLD (hyperlipidemia) Status: Chronic (9) T2DM (type 2 diabetes mellitus) Status: Chronic Assessment & Plan: Sliding scale insulin protocol Qualifiers: Qualified Codes: E11.69 - Type 2 diabetes mellitus with other specified complication (10) HFrEF (heart failure with reduced ejection fraction) Status: Chronic Assessment & Plan: EF 30-35% 03/20/22. Appreciate Cardiology recommendations. 03/24 lasix 40 mg IV today, monitor BP closely 03/25- had low bp after lasix yesterday, but BNP is significantly up and CXR with worsening appearance, will defer to [facility] ICU and Cardiology on repeat lasix (11) Lactic acidosis Status: Resolved (12) Peripheral arterial disease Status: Chronic (13) Acute renal failure Status: Resolved (14) Carotid artery disease Status: Chronic (15) Acute respiratory failure Status: Acute Assessment & Plan: 03/25- Secondary to pneumonia, sepsis, possible underlying pulmonary mets. Now frequently requiring bipap. Discussed her tenuous status, she wants to stay full code and to be intubated if needed. Qualifiers: Qualified Codes: J96.01 - Acute respiratory failure with hypoxia (16) DVT prophylaxis Status: Acute Assessment & Plan: Enoxaparin Plan: Guarded prognosis poor Supportive care 03/29/22: DNR due to futility discussed with her best friend who manages patient DC pressor 03/30/22: Move to floor Needs comfort care 03/31/22: Needs comfort care Self pay limits placement 04/01/22: PT and OT Supportive care Poor prognosis Critical Care Critically Ill Patient MISSY ORTEGA DO Apr 01, 2022 06:30
[2022-04-01] MEDS: MIDODRINE 10 MG (PROAMATINE) TAB PO SCH ×3 (09:04→20:35)
[2022-04-01] MEDS: PANTOPRAZOLE 40 MG (PROTONIX) TAB PO SCH (09:04)
[2022-04-01] MEDS: ASPIRIN E.C. 81 MG (ECOTRIN) TAB PO SCH (09:04)
--- NOTE | 2022-04-01 12:21 | Cardiology Progress Note ---
Progress Note-Cardiology Events since last exam Date Seen by Provider: Apr 01, 2022 Time Seen by Provider: 12:20 Events since last exam I am following her due to NSTEMI and acute on chronic heart failure due to ischemic cardiomyopathy. She remains on the medical floor. She got up and walked a little with staff today. She denies chest discomfort, dyspnea at rest, palpitations, syncope, or ankle edema. She would like to see about having the pelvic mass biopsied. Certain portions of this document may have been dictated utilizing voice recognition technology. Inherent to this technology, typographical and grammatical errors may exist. As much as I am diligent to identify and correct these mistakes, some errors may remain in the document. Vitals Last set of Vitals Signs Vital Signs 03/27/22 04/01/22 04/01/22 04/01/22 09:00 11:44 15:28 15:53 Temp 37.0 Pulse 82 Resp 16 B/P (MAP) 85/55 85/55 Pulse Ox 95 O2 Delivery Room Air O2 Flow Rate 3.00 FiO2 21 Exam Vital Signs Vital Signs Date Time Temp Pulse Resp B/P (MAP) Pulse Ox O2 Delivery O2 Flow Rate FiO2 04/01/22 15:53 95 Room Air 04/01/22 15:28 37.0 82 16 85/55 85/55 04/01/22 11:44 3.00 03/27/22 09:00 21 Physical Exam General: Alert. No acute distress. She appears chronically ill and older than her stated age. Eye: No xanthelasma. HENT: Normocephalic. Neck: Jugular venous pressure does not appear elevated. Respiratory: Lungs are clear to auscultation. Respirations are non-labored. Breath sounds are equal. Symmetrical chest wall expansion. Cardiovascular: Normal rate. Regular rhythm. No murmur. No gallop. No edema. Gastrointestinal: Soft. Normal bowel sounds. Skin: Warm. Dry. Neurologic: Alert and oriented to person, place, time. Cranial nerves 3-11 grossly intact. Psychiatric: Cooperative. Appropriate mood & affect. Labs Laboratory Tests Test 03/31/22 20:43 04/01/22 05:48 04/01/22 15:32 Range/Units Glucometer 261 H 86 190 H 70-110 MG/DL Diagnosis/Problems Diagnosis/Problems (1) Non-ST elevation myocardial infarction (NSTEMI), initial care episode Assessment & Plan: She appears to have suffered another non-ST elevation myocardial infarction during this admission. She has known severe three-vessel coronary artery disease. She had been seen by cardiothoracic surgery at [facility] and by report, they did not think she was a good surgical candidate. The plan was for high risk percutaneous coronary intervention but then the patient left AGAINST MEDICAL ADVICE before this could be performed. This was all a few months ago. She is on aspirin and high-dose statin medication. She is not taking clopidogrel or any other antiplatelet agent because surgery was thinking about doing a biopsy of her pelvic mass. She is not on beta-liang due to hypotension. If she continues to improve, then we can consider more advanced treatment options for the coronary artery disease. However, she may have metastatic cancer as noted on her CT of the chest, abdomen and pelvis. (2) Ischemic cardiomyopathy Status: Chronic Assessment & Plan: She has moderate left ventricular systolic dysfunction. I will hold off on adding any of the usual guideline directed medical therapy due to the low blood pressure. (3) Chronic HFrEF (heart failure with reduced ejection fraction) Assessment & Plan: Although her BNP level was elevated, this was in the setting of sepsis and acute kidney injury. As above, we are not currently able to prescribe any of the usual guideline directed medical therapy due to low blood pressure. (4) Peripheral arterial disease Status: Chronic Assessment & Plan: She most likely also has extensive peripheral vascular disease as noted on her previous cardiac catheterization. We will continue aspirin and high-dose statin medication. This is causing issues with accurately recording noninvasive blood pressures from any of her extremities. (5) Septic shock Status: Acute Assessment & Plan: She had continued on norepinephrine infusion for about 5 days. I reviewed her hemodynamics from the cardiac catheterization in December and there was a 30 mmHg discrepancy between her central aortic pressure and blood pressure on her left arm recorded simultaneously. As such, we can add approximately 30 mmHg to the blood pressure we are getting from her upper extremities and that should be a reasonably close estimation of her central a ortic pressure. I discontinued norepinephrine infusion on 03/29. We will continue midodrine to help support her blood pressure. As above, due to her persistently low blood pressures, she is not a candidate for beta-liang, SHEILA inhibitor, ARB or aldosterone antagonists. (6) Acute kidney injury Assessment & Plan: Her creatinine was elevated at the time of admission. This has now improved. (7) Adnexal mass Status: Acute Assessment & Plan: We will continue to hold clopidogrel if and when the primary team decides whether or not to biopsy this mass. Aspirin should not be a contraindication to a biopsy. (8) Type 2 diabetes mellitus with complication Assessment & Plan: This is being managed by the hospitalist. (9) Cigarette smoker Status: Chronic Assessment & Plan: She needs to quit smoking. She has been counseled about this on several occasions. JACQUELYN OSORIO JR, MD Apr 01, 2022 12:21
--- NOTE | 2022-04-01 13:44 | Physical Therapy Daily Note ---
PT Daily Note-Current Subjective Patient in recliner pre tx, agrees to PT, has no complaints of pain. Patient's order had been cancelled by Dr. Alex and then reordered by Dr. Preston. Patient is still on the medical floor, has not been transferred to a higher level of care. Will continue tx with patient at current goals. Appearance Patient in recliner post tx with nurse call, phone, tray, all needs met. Mental Status Patient Orientation: Person, Place, Situation Transfers SCALE: Activities may be completed with or without assistive devices. 8-Jeotvhygfv-qckogsq completes the activity by him/herself with no assistance from a helper. 5-Set-up or Clean-up Assistance-helper sets up or cleans up; patient completes activity. [place] assists only prior to or following the activity. 4-Supervision or Touching Assistance-helper provides verbal cues and/or touching/steadying and/or contact guard assistance as patient completes activity. Assistance may be provided throughout the activity or intermittently. 3-Partial/Moderate Assistance-helper does LESS THAN HALF the effort. [place] lifts, holds or supports trunk or limbs, but provides less than half the effort. 2-Substantial/Maximal Assistance-helper does MORE THAN HALF the effort. [place] lifts or holds trunk or limbs and provides more than half the effort. 4-Edrizavgm-nricgm does ALL the effort. Patient does none of the effort to compl ete the activity. Or, the assistance of 2 or more helpers is required for the patient to complete the activity. If activity was not attempted, code reason: 7-Patient Refused. 9-Not Applicable-not attempted and the patient did not perform the activity before the current illness, exacerbation or injury. 10-Not Attempted due to Environmental Limitations-(lack of equipment, weather restraints, etc.). 88-Not Attempted due to Medical Conditions or Safety Concerns. Sit to Stand (QC): 3 min assist for sit to stand. Patient can get on her socks while sitting and brief is put on fpc (by OT), when she stands therapist pulls up her brief the rest of the way Gait Training Does the Patient Walk?: Yes Distance: 5', 10' Walk 10 feet (QC): 4 Gait Assistive Device: FWW slow ambulation, unsteady but no LOB, fatigues quickly Treatments ambulation Assessment Current Status: Fair Progress slowly improving functional mobility PT Lifestyle Director Goals Snf Goals PT Snf Goals Time Frame: Apr 24, 2022 Roll Left & Right (QC): 4 Sit to Lying (QC): 4 Lying-Sitting on Side/Bed(QC): 4 Sit to Stand (QC): 4 Chair/Fjl-gc-Zhybc Xfer(QC): 4 Toilet Transfer (QC): 4 Walk 10 feet (QC): 2 PT Plan Problem List Problem List: Activity Tolerance, Functional Strength, Safety, Balance, Gait, Transfer, Bed Mobility, ROM Treatment/Plan Treatment Plan: Continue Plan of Care Treatment Plan: Bed Mobility, Education, Functional Activity Roya, Functional Strength, Gait, Safety, Therapeutic Exercise, Transfers Treatment Duration: Apr 24, 2022 Frequency: 6 times per week Estimated Hrs Per Day: .25 hour per day Patient and/or Family Agrees t: Yes Safety Risks/Education Patient Education: Gait Training, Transfer Techniques, Correct Positioning, Safety Issues Teaching Recipient: Patient Teaching Methods: Demonstration, Discussion Response to Teaching: Reinforcement Needed Time/GCodes Time In: 1321 Time Out: 1332 Total Billed Treatment Time: 11 Total Billed Treatment 1 visit GT 11' DANILO MERCHANT PT Apr 01, 2022 13:44
--- NOTE | 2022-04-01 14:19 | Occupational Therapy Eval ---
OT Evaluation-General/PLF Medical Diagnosis Admission Date March 20, 2022 at 02:35 Medical Diagnosis: sepsis/pneumonia Onset Date: March 20, 2022 Therapy Diagnosis Therapy Diagnosis: decreased ADL status Height/Weight Weight (Pounds): 146 Precautions Precautions/Isolations: Fall Prevention, Standard Precautions, Pressure Ulcer Referral Physician: Kary Referral Reason: Evaluation/Treatment Medical History Pertinent Medical History: CABG, CAD, DM, HTN, PVD, Renal Insufficiency Current History Pt presents to hospital with SOA, fever, and diarrhea. Found to have sepsis/pneumonia. Per patient, she lives in a single story home with a friend, Mely. She was indep with adls and shares iadl responsibilities with her roommat e. 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 She was not using any AD at baseline. Social History Home: Single Level Current Living Status: Friend ADL-Prior Level of Function SCALE: Activities may be completed with or without assistive devices. 9-Iwoicgfcdx-kiejzrq completes the activity by him/herself with no assistance from a helper. 5-Set-up or Clean-up Assistance-helper sets up or cleans up; patient completes activity. [place] assists only prior to or following the activity. 4-Supervision or Touching Assistance-helper provides verbal cues and/or touching/steadying and/or contact guard assistance as patient completes activity. Assistance may be provided throughout the activity or intermittently. 3-Partial/Moderate Assistance-helper does LESS THAN HALF the effort. [place] lifts, holds or supports trunk or limbs, but provides less than half the effort. 2-Substantial/Maximal Assistance-helper does MORE THAN HALF the effort. [place] lifts or holds trunk or limbs and provides more than half the effort. 6-Lpvguyabi-knvnpt does ALL the effort. Patient does none of the effort to complete the activity. Or, the assistance of 2 or more helpers is required for the patient to complete the activity. If activity was not attempted, code reason: 7-Patient Refused. 9-Not Applicable-not attempted and the patient did not perform the activity before the current illness, exacerbation or injury. 10-Not Attempted due to Environmental Limitations-(lack of equipment, weather restraints, etc.). 88-Not Attempted due to Medical Conditions or Safety Concerns. Self Care: Independent Functional Cognition: Independent DME/Equipment: Grab Bars, Tub/Shower Drive Self: Yes OT Current Status Subjective Pt up in recliner, states she completed a sponge bath earlier today and feels good. Mental Status/Objective Patient Orientation: Normal For Age Current Hand Dominance: Left Upper Extremity ROM WFL Upper Extremity Strength grossly 3/5 BUEs ADL-Treatment Eating (QC): 5 (set up with meals.) Shower/Bathe Self (QC): 1 (Assist x2 in stand for pericare/hygiene) Lower Body Dressing (QC): 1 (assist x2 in stand for pant hike) On/Off Footwear (QC): 3 (Min A donning gripper socks. ) Toileting Hygiene (QC): 1 (Assist x2 in stand for pant hike and hygiene. Assist all parts. ) Other Treatments Pt in recliner, reports being wet. Pt donned gripper socks/brief, stood at recliner as OT performed hygiene and changed soiled linens. Assist x2 in stand required, 1 for assistance with stand and 1 for cleaning/clothing management. Pt then performed mobility x2 (5', 10') in room with FWW, recliner follow. Post tx, pt in recliner, call light in reach and all needs met. Education OT Patient Education: Correct positioning, Energy conservation, Modified ADL techniques, Progress toward Goal/Update tx plan, Purpose of tx/functional activities, Rehab process Teaching Recipient: Patient Teaching Methods: Discussion Response to Teaching: Verbalize Understanding OT Detention Goals [place] Goals Time Frame: Apr 23, 2022 Eating (QC): 6 Oral Hygiene (QC): 5 Toileting Hygiene (QC): 4 Shower/Bathe Self (QC): 3 Upper Body Dressing (QC): 4 Lower Body Dressing (QC): 3 On/Off Footwear (QC): 4 Additional Goals: 1-Demonstrate ADL Tasks, 2-Verbalize Understanding, 3- ImproveStrength/Roya 1=Demonstrate adherence to instructed precautions during ADL tasks. 2=Patient will verbalize/demonstrate understanding of assistive devices/mo difications for ADL. 3=Patient will improve strength/tolerance for activity to enable patient to perform ADL's. OT Education/Plan Problem List/Assessment Assessment: Decreased Activ Tolerance, Decreased UE Strength, Impaired Funct Balance, Impaired I ADL's, Impaired Self-Care Skills Discharge Recommendations Plan/Recommendations: Continue POC Therapy Discharge Recommendati: Post Acute OT (SNF vs home with caregiver support) Treatment Plan/Plan of Care Patient would benefit from OT for education, treatment and training to promote independence in ADL's, mobility, safety and/or upper extremity function for ADL's. Plan of Care: ADL Retraining, Functional Mobility, UE Funct Exercise/Act Treatment Duration: Apr 23, 2022 Frequency: 3 times per week (3-5x/week) Estimated Hrs Per Day: .25 hour per day Agreement: Yes Rehab Potential: Guarded Time/GCodes Start Time: 13:22 Stop Time: 13:33 Total Time Billed (hr/min): 11 Billed Treatment Time 1, DANITZA ROMAN OT Apr 01, 2022 14:19
--- NOTE | 2022-04-01 14:21 | Physical Therapy Evaluation ---
PT Evaluation-General Medical Diagnosis Admission Date March 20, 2022 at 02:35 Medical Diagnosis: sepsis/pneumonia Onset Date: March 20, 2022 Therapy Diagnosis Therapy Diagnosis: impaired mobility Height/Weight Weight (Pounds): 146 Precautions Precautions/Isolations: Fall Prevention, Standard Precautions, Pressure Ulcer Referral Physician: Kary Reason for Referral: Evaluation/Treatment Medical History Pertinent Medical History: CABG, CAD, DM, HTN, PVD, Renal Insufficiency Reviewed History: Yes Social History Home: Single Level Current Living Status: Friend Prior Prior Level of Function SCALE: Activities may be completed with or without assistive devices. 2-Nbudlfstrs-rdztbmp completes the activity by him/herself with no assistance from a helper. 5-Set-up or Clean-up Assistance-helper sets up or cleans up; patient completes activity. [place] assists only prior to or following the activity. 4-Supervision or Touching Assistance-helper provides verbal cues and/or touching/steadying and/or contact guard assistance as patient completes activity. Assistance may be provided throughout the activity or intermittently. 3-Partial/Moderate Assistance-helper does LESS THAN HALF the effort. [place] lifts, holds or supports trunk or limbs, but provides less than half the effort. 2-Substantial/Maximal Assistance-helper does MORE THAN HALF the effort. [place] lifts or holds trunk or limbs and provides more than half the effort. 2-Xhsfohlxv-iqhrvh does ALL the effort. Patient does none of the effort to complete the activity. Or, the assistance of 2 or more helpers is required for the patient to complete the activity. If activity was not attempted, code reason: 7-Patient Refused. 9-Not Applicable-not attempted and the patient did not perform the activity before the current illness, exacerbation or injury. 10-Not Attempted due to Environmental Limitations-(lack of equipment, weather restraints, etc.). 88-Not Attempted due to Medical Conditions or Safety Concerns. Bed Mobility: 6 Transfers (B,C,W/C): 6 Gait: 6 Indoor Mobility (Ambulation): Independent Prior Devices Use: None PT Evaluation-Current Subjective Patient in recliner pre tx, agrees to PT, has no complaints of pain. She states that she has wet a little and needs brief on Pt/Family Goals to be independent at home Objective Patient Orientation: Person, Place, Situation ROM/Strength ROM Lower Extremities WNL Strength Lower Extremities BLE grossly 3/5 Integumentary/Posture Bowel Incontinence: Yes Bladder Incontinence: Lang Cath Sensory Vision: Functional Hearing: Functional Hand Dominance: Left Sensation Right Lower Extremit: Impaired Sensation Left Lower Extremity: Impaired Transfers Sit to Stand (QC): 3 Patient is able to put her owns socks on and her brief is put on partway, she stands and female therapist pulls brief all the way on and she can ambulate from there. Gait Does the Patient Walk?: Yes Mode of Locomotion: Walk Anticipated Mode of Locomotion: Walk Walk 10 feet (QC): 4 Distance: 10', 5' Comments/Gait Description Patient ambulates with CGA, she is unsteady but doesn't have a LOB, her recliner is brought up behind her for when she needs to sit Balance Sitting Static: Normal Sitting Dynamic: Normal Standing Static: Poor Standing Dynamic: Poor Treatment BLE seated exercises x20 (AP, LAQ) Assessment/Needs Patient in recliner post tx with nurse call, phone, tray, all needs met. Patient has impaired mobility, strength, endurance. She needs min assist to stand from sitting but just CGA for ambulation for short distances. Rehab Potential: Fair PT Correction Goals Correction Goals PT Molder Trimmer Goals Time Frame: Apr 08, 2022 Roll Left & Right (QC): 6 Sit to Lying (QC): 6 Lying-Sitting on Side/Bed(QC): 6 Sit to Stand (QC): 4 Chair/Vht-if-Ljlqt Xfer(QC): 4 (SBA) Walk 10 feet (QC): 4 (SBA) Walk 50ft with 2 Turns (QC): 4 (SBA) PT Plan Problem List Problem List: Activity Tolerance, Functional Strength, Safety, Balance, Gait, Transfer, Bed Mobility, ROM Treatment/Plan Treatment Plan: Continue Plan of Care Treatment Plan: Bed Mobility, Education, Functional Activity Roya, Functional Strength, Gait, Safety, Therapeutic Exercise, Transfers Treatment Duration: Apr 24, 2022 Frequency: 6 times per week Estimated Hrs Per Day: .25 hour per day Patient and/or Family Agrees t: Yes Safety Risks/Education Patient Education: Gait Training, Transfer Techniques, Correct Positioning, Safety Issues Teaching Recipient: Patient Teaching Methods: Demonstration, Discussion Response to Teaching: Reinforcement Needed Discharge Recommendations Plan Patient will perform bed mobility and transfer training, balance and endurance training ,functional strengthening, stair training, gait training, and education, to improve functional mobility and independence at home. Therapy Discharge Recommendati: Scheduled Assistance, Home & Family, Post Acute PT Time/GCodes Time In: 1321 Time Out: 1332 Total Billed Treatment Time: 11 Total Billed Treatment 1 visit STEFAN Gee' DANILO MERCHANT PT Apr 01, 2022 14:21
[2022-04-02] MEDS: RT-ALBUTEROL/IPRATROPIUM 3 ML (DUONEB) VIAL INH SCH ×4 (03:13→21:27)
[2022-04-02] MEDS ORDERED: DEXTROSE 50% 50 ML (IMS) SYR ONE (03:26)
[2022-04-02] MEDS ORDERED: DEXTROSE 50% 50 ML (IMS) SYR IV ONE ×2 (03:30→10:45)
[2022-04-02] MEDS: ENOXAPARIN 40 MG/0.4 ML (LOVENOX) SYR SC SCH (05:22)
[2022-04-02] MEDS: inSUlin ASPART (NovoLOG) 1 UNIT/0.01 ML (CHARGE PER UNIT) SC SCH ×4 (05:35→21:52)
--- NOTE | 2022-04-02 06:11 | Progress Note - Hospitalist ---
Subjective HPI/CC On Admission Date Seen by Provider: Apr 02, 2022 Time Seen by Provider: 11:00 PT ARRIVES VIA EMS FROM HOME--LIVES WITH HER SISTER AND [id number] WAS REPORTED TO EMS THAT PT HAS BEEN SICK FOR THE PAST FEW DAYS WITH FEVER AND DIARRHEA HAS NOT BEEN OUT OF BED FOR THE LAST 2 DAYS, PER EMS. TEMP IS 103.4 FOR EMS--PT UNAWARE OF FEVER BP 80'S/50'S, HR IN 140'S FOR EMS PT HAS COPD AND CONTINUES TO SMOKE. DOES NOT HAVE HOME O2 EMS REPORT THAT PT BECAME VERY SHORT OF BREATH VERY EASILY WITH MINIMAL EFFORT AT THE RESIDENCE. PT C/O PAIN TO LEFT RIBS FOR THE LAST WEEK. HURTS TO BREATHE OR MOVE STATES SHE DID FALL OVER A WEEK AGO, BUT HAS NOT SEEN ANYONE FOR THAT PROBLEM HAS A FREQUENT COUGH--PT STATES IS NORMAL FOR HER DENIES NAUSEA DENIES ABDOMINAL PAIN DOES NOT KNOW WHEN SHE LAST VOIDED DOES NOT KNOW WHEN SHE LAST ATE OR DRANK, BUT STATES SHE IS VERY THIRSTY NOW. CANNOT STATE WHY SHE HAS NOT BEEN EATING OR DRINKING. PT ALSO HAS HISTORY OF HTN, WELL CAD WITH STENTS IN 2009 PT ALSO HAS BEEN DX WITH DIABETES AND BEEN ON INSULIN IN THE PAST, BUT HAD QUIT TAKING IT 11 YEARS AGO PT WAS SEEN HERE 01/16/22--PT HAD NOT SEEN A DR IN AT LEAST 12 YEARS AT THAT TIME PT WAS ADMITTED AT THAT TIME WITH MULTIPLE PROBLEMS, INCLUDING SEVERE SEPSIS, UTI, CHF, PNEUMONIA, NSTEMI. 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 PT CANNOT STATE WHAT WAS DONE WHEN SHE WAS AT SHE STATES SHE HAS MEDICATION AT HOME, BUT DOES NOT KNOW WHAT MEDICATION SHE IS ON OR WHAT SHE TAKES IT FOR STATES SHE DOES NOT KNOW IF SHE TOOK HER MEDICATIONS TODAY OR NOT, OR WHEN SHE MIGHT HAVE LAST TAKEN ANY MEDICATION HAS NOT SOUGHT CARE UNTIL TONIGHT FOR THESE PROBLEMS STATES SHE "DOESN'T KNOW" WHY SHE DID NOT SEEK CARE PRIOR TO TONIGHT. Upon my arrival patient was somnolent would open up her eyes begin to answer question would trail off and she would fall back asleep. She did deny headache and denied pain. At baseline reportedly a poor historian. She had been scheduled for biopsy of a right adnexal mass suspicious for malignancy but did not stop her Plavix apparently was being rescheduled. She denied leg pain and there have been no reports of leg pain with known severe peripheral vascular disease. Subjective/Events-last exam Pt very declined Lang catheter will be placed due to inability to get out of bed Decreased blood sugar due to Levemir given last night, will hang a D10 drip at 30 ccs an hour an hour and give D50 as needed Comfort care orders likely will ensue this weekend Review of Systems General: Fatigue Neurological: Confusion Focused Exam Time of Focused Exam: 01:00 Objective Exam Vital Signs Vital Signs Date Time Temp Pulse Resp B/P (MAP) Pulse Ox O2 Delivery O2 Flow Rate FiO2 04/02/22 16:00 36.9 94 18 91/58 93 Nasal Cannula 3.00 03/27/22 09:00 21 Capillary Refill : Less Than 3 Seconds General Appearance: Anxious, Chronically ill, Mild Distress, Thin Respiratory: No Accessory Muscle Use, No Respiratory Distress, Crackles, Decreased Breath Sounds Cardiovascular: Regular Rate, Rhythm Neurologic/Psychiatric: Alert, Depressed Affect, Disoriented Results/Procedures Lab Laboratory Tests 04/02/22 07:16 Patient resulted labs reviewed. Assessment/Plan Assessment and Plan Assess & Plan/Chief Complaint (1) Septic shock Status: Acute Assessment & Plan: Uncertain etiology, initially with diarrhea and fever. C diff neg. Urine culture no growth. Blood cultures no growth to date. Possible pneumonia, but CT chest has had similar findings for chronic time period. Continue cefepime. Norepinephrine and LR. Appreciate Tsering ICU assistance. 03/24- holding IVF and giving lasix this am due to increasing swelling and worsening hypoxia overnight. Continue cefepime. 03/25- requiring both vasopressin and norepinephrine overnight, but vasopressin held again this am. Remains on cefepime. 03/26- cefepime completed, on norepinephrine alone still, new meds per Cardiology and attempting to wean norepi. 03/27patient continues to be maintained on norepinephrine 03/27patient continues to be maintained on norepinephrine 03/27patient DC norepinephrine (2) Pneumonia Status: Acute Assessment & Plan: Bilateral multifocal, concerning for possible underlying malignancy, particularly as findings are not new and she has been on more than one course of antibiotics. Continue cefepime for now. s/p cefepime x 5 days Qualifiers: (3) Adnexal mass Status: Acute Assessment & Plan: Was scheduled for biopsy outpatient, but was unable to be done due to blood thinners, holding currently, but given severity of current illness, not likely able to get done currently. Discussed difficulty in prognostic planning without biopsy. (4) CAD (coronary artery disease) Status: Chronic Assessment & Plan: Severe multivessel disease both coronary and peripheral, holding antiplatelets in hopes of biopsy shortly. (5) NSTEMI (non-ST elevated myocardial infarction) Status: Acute Assessment & Plan: Mild troponin elevation, appreciate Cardiology recommendations. Known severe CAD and multiple other vascular occlusions, was referred for CABG but had possible stroke and was deferred, has outpatient appt with Dr. Damon. Holding antiplatelets due to need for adnexal mass biopsy. (6) Cardiomyopathy Status: Chronic Qualifiers: Qualified Codes: I25.5 - Ischemic cardiomyopathy (7) Tobacco abuse Status: Chronic (8) HLD (hyperlipidemia) Status: Chronic (9) T2DM (type 2 diabetes mellitus) Status: Chronic Assessment & Plan: Sliding scale insulin protocol Qualifiers: Qualified Codes: E11.69 - Type 2 diabetes mellitus with other specified complication (10) HFrEF (heart failure with reduced ejection fraction) Status: Chronic Assessment & Plan: EF 30-35% 03/20/22. Appreciate Cardiology recommendations. 03/24 lasix 40 mg IV today, monitor BP closely 03/25- had low bp after lasix yesterday, but BNP is significantly up and CXR with worsening appearance, will defer to Tsering ICU and Cardiology on repeat lasix (11) Lactic acidosis Status: Resolved (12) Peripheral arterial disease Status: Chronic (13) Acute renal failure Status: Resolved (14) Carotid artery disease Status: Chronic (15) Acute respiratory failure Status: Acute Assessment & Plan: 03/25- Secondary to pneumonia, sepsis, possible underlying pulmonary mets. Now frequently requiring bipap. Discussed her tenuous status, she wants to stay full code and to be intubated if needed. Qualifiers: Qualified Codes: J96.01 - Acute respiratory failure with hypoxia (16) DVT prophylaxis Status: Acute Assessment & Plan: Enoxaparin Plan: Guarded prognosis poor Supportive care 03/29/22: DNR due to futility discussed with her best friend who manages patient DC pressor 03/30/22: Move to floor Needs comfort care 03/31/22: Needs comfort care Self pay limits placement 04/01/22: PT and OT Supportive care Poor prognosis 04/02/22: Treat hypoglycemia May need comfort care orders over weekend DNR Critical Care Critically Ill Patient MISSY ORTEGA DO Apr 02, 2022 06:11
[2022-04-02 07:24] LABS: BASOPHILS % (AUTO) 0 % (0-10); EOSINOPHILS % (AUTO) 0 % (0-10); HEMATOCRIT 31 % (35-52); HEMOGLOBIN 9.8 g/dL (11.5-16.0); LYMPHOCYTES # (AUTO) 0.4 10^3/uL (1.0-4.0); LYMPHOCYTES % (AUTO) 5 % (12-44); MEAN CORPUSCULAR HEMOGLOBIN 30 pg (25-34); MEAN CORPUSCULAR HGB CONC 32 g/dL (32-36); MEAN CORPUSCULAR VOLUME 95 fL (80-99); MEAN PLATELET VOLUME 11.5 fL (9.0-12.2); MONOCYTES # (AUTO) 0.5 10^3/uL (0.0-1.0); MONOCYTES % (AUTO) 6 % (0-12); NEUTROPHILS # (AUTO) 8.5 10^3/uL (1.8-7.8); NEUTROPHILS % (AUTO) 89 % (42-75); PLATELET COUNT 275 10^3/uL (130-400); WHITE BLOOD COUNT 9.5 10^3/uL (4.3-11.0)
[2022-04-02 07:40] LABS: ALBUMIN 2.6 GM/DL (3.2-4.5); BILIRUBIN,TOTAL 0.4 MG/DL (0.1-1.0); CALCIUM 8.8 MG/DL (8.5-10.1); CREATININE SERUM 0.64 MG/DL (0.60-1.30); POTASSIUM 4.2 MMOL/L (3.6-5.0); TOTAL PROTEIN 6.7 GM/DL (6.4-8.2)
[2022-04-02 08:15] LABS: ANISOCYTOSIS SLIGHT; BAND NEUTROPHILS 6 %; BASOPHILS % (MANUAL) 2 %; EOSINOPHILS % (MANUAL) 0 %; LYMPHOCYTES % (MANUAL) 6 %; MONOCYTES % (MANUAL) 9 %; NEUTROPHILS % (MANUAL) 77 %
--- NOTE | 2022-04-02 08:54 | Cardiology Progress Note ---
Progress Note-Cardiology Events since last exam Date Seen by Provider: Apr 02, 2022 Time Seen by Provider: 08:52 Events since last exam I am following her due to NSTEMI and heart failure. Earlier this morning she was upset and agitated. She was given Ativan and now she is sleeping and difficult to arouse. I could not obtain any history from the patient today due to her sedation. I did speak with her nurse. Certain portions of this document may have been dictated utilizing voice recognition technology. Inherent to this technology, typographical and grammatical errors may exist. As much as I am diligent to identify and correct these mistakes, some errors may remain in the document. Vitals Last set of Vitals Signs Vital Signs 03/27/22 04/02/22 09:00 11:55 Temp 35.9 Pulse 80 Resp 16 B/P (MAP) 101/70 Pulse Ox 100 O2 Delivery Non Rebreather O2 Flow Rate 12.00 FiO2 21 Labs Labs Laboratory Tests 04/02/22 07:16 Exam Vital Signs Vital Signs Date Time Temp Pulse Resp B/P (MAP) Pulse Ox O2 Delivery O2 Flow Rate FiO2 04/02/22 11:55 35.9 80 16 101/70 100 Non Rebreather 12.00 03/27/22 09:00 21 Physical Exam General: Sedated and minimally arousable. She will just moan to sternal rub but will not open her eyes. No acute distress. She is on a Ventimask. She appears chronically ill and older than her stated age. Eye: No xanthelasma. HENT: Normocephalic. Neck: Jugular venous pressure does not appear elevated. Respiratory: Lungs have coarse upper airway sounds due to snoring. Respirations are non-labored. Breath sounds are equal. Symmetrical chest wall expansion. Cardiovascular: Normal rate. Regular rhythm. No murmur. No gallop. No edema. Gastrointestinal: Soft. Normal bowel sounds. Skin: Warm. Dry. Neurologic: Sedated. Psychiatric: Sedated. Labs Laboratory Tests Test 04/01/22 15:32 04/02/22 03:21 04/02/22 03:45 04/02/22 05:25 Range/Units Glucometer 190 H 44 *L 126 H 106 70-110 MG/DL Test 04/02/22 07:16 04/02/22 10:34 Range/Units White Blood Count 9.5 4.3-11.0 10^3/uL Red Blood Count 3.25 L 3.80-5.11 10^6/uL Hemoglobin 9.8 L 11.5-16.0 g/dL Hematocrit 31 L 35-52 % Mean Corpuscular Volume 95 80-99 fL Mean Corpuscular Hemoglobin 30 25-34 pg Mean Corpuscular Hemoglobin Concent 32 32-36 g/dL Red Cell Distribution Width 16.1 H 10.0-14.5 % Platelet Count 275 130-400 10^3/uL Mean Platelet Volume 11.5 9.0-12.2 fL Immature Granulocyte % (Auto) 0 % Neutrophils (%) (Auto) 89 H 42-75 % Lymphocytes (%) (Auto) 5 L 12-44 % Monocytes (%) (Auto) 6 0-12 % Eosinophils (%) (Auto) 0 0-10 % Basophils (%) (Auto) 0 0-10 % Neutrophils # (Auto) 8.5 H 1.8-7.8 10^3/uL Lymphocytes # (Auto) 0.4 L 1.0-4.0 10^3/uL Monocytes # (Auto) 0.5 0.0-1.0 10^3/uL Eosinophils # (Auto) 0.0 0.0-0.3 10^3/uL Basophils # (Auto) 0.0 0.0-0.1 10^3/uL Immature Granulocyte # (Auto) 0.0 0.0-0.1 10^3/uL Neutrophils % (Manual) 77 % Lymphocytes % (Manual) 6 % Monocytes % (Manual) 9 % Eosinophils % (Manual) 0 % Basophils % (Manual) 2 % Band Neutrophils 6 % Anisocytosis SLIGHT Sodium Level 139 135-145 MMOL/L Potassium Level 4.2 3.6-5.0 MMOL/L Chloride Level 98 98-107 MMOL/L Carbon Dioxide Level 29 21-32 MMOL/L Anion Gap 12 5-14 MMOL/L Blood Urea Nitrogen 21 H 7-18 MG/DL Creatinine 0.64 0.60-1.30 MG/DL Estimat Glomerular Filtration Rate 102 BUN/Creatinine Ratio 33 Glucose Level 64 L 70-105 MG/DL Calcium Level 8.8 8.5-10.1 MG/DL Corrected Calcium 9.9 8.5-10.1 MG/DL Total Bilirubin 0.4 0.1-1.0 MG/DL Aspartate Amino Transf (AST/SGOT) 30 5-34 U/L Alanine Aminotransferase (ALT/SGPT) 17 0-55 U/L Alkaline Phosphatase 100 40-136 U/L Total Protein 6.7 6.4-8.2 GM/DL Albumin 2.6 L 3.2-4.5 GM/DL Glucometer 43 *L 70-110 MG/DL Diagnosis/Problems Diagnosis/Problems (1) Non-ST elevation myocardial infarction (NSTEMI), initial care episode Assessment & Plan: She appears to have suffered another non-ST elevation myocardial infarction during this admission. She has known severe three-vessel coronary artery disease. She had been seen by cardiothoracic surgery at [facility] and by report, they did not think she was a good surgical candidate. The plan was for high risk percutaneous coronary intervention but then the patient left AGAINST MEDICAL ADVICE before this could be performed. This was all a few months ago. She is on aspirin and high-dose statin medication. She is not taking clopidogrel or any other antiplatelet agent because surgery was thinking about doing a biopsy of her pelvic mass. She is not on beta-liang due to hypotension. If she continues to improve, then we can consider more advanced treatment options for the coronary artery disease. However, she may have metastatic cancer as noted on her CT of the chest, abdomen and pelvis. (2) Ischemic cardiomyopathy Status: Chronic Assessment & Plan: She has moderate left ventricular systolic dysfunction. I will hold off on adding any of the usual guideline directed medical therapy due to the low blood pressure. (3) Chronic HFrEF (heart failure with reduced ejection fraction) Assessment & Plan: Although her BNP level was elevated, this was in the setting of sepsis and acute kidney injury. As above, we are not currently able to prescribe any of the usual guideline directed medical therapy due to low blood pressure. (4) Peripheral arterial disease Status: Chronic Assessment & Plan: She most likely also has extensive peripheral vascular disease as noted on her previous cardiac catheterization. We will continue aspirin and high-dose statin medication. This is causing issues with accurately recording noninvasive blood pressures from any of her extremities. (5) Septic shock Status: Acute Assessment & Plan: She had continued on norepinephrine infusion for about 5 days. I reviewed her hemodynamics from the cardiac catheterization in December and there was a 30 mmHg discrepancy between her central aortic pressure and blood pressure on her left arm recorded simultaneously. As such, we can add approximately 30 mmHg to the blood pressure we are getting from her upper extremities and that should be a reasonably close estimation of her central aortic pressure. I discontinued norepinephrine infusion on 03/29. We will continue midodrine to help support her blood pressure. As above, due to her persistently low blood pressures, she is not a candidate for beta-liang, SHEILA inhibitor, ARB or aldosterone antagonists. (6) Acute kidney injury Assessment & Plan: Her creatinine was elevated at the time of admission. This has now improved. (7) Adnexal mass Status: Acute Assessment & Plan: We will continue to hold clopidogrel if and when the primary team decides whether or not to biopsy this mass. Aspirin should not be a contraindication to a biopsy. (8) Type 2 diabetes mellitus with complication Assessment & Plan: This is being managed by the hospitalist. (9) Cigarette smoker Status: Chronic Assessment & Plan: She needs to quit smoking. She has been counseled about this on several occasions. JACQUELYN OSORIO JR, MD Apr 02, 2022 08:54
--- NOTE | 2022-04-02 09:51 | Occ Therapy Progress Note ---
Therapy Progress Note Per nurse, pt on hold on this date. Pt was placed on nonrebreather overnight due to decreased O2 saturations. She was also given ativan, unable to wake pt up to participate in skilled therapy due to lethargy. OT will attempt tx next available date. DANITZA MORALES OT Apr 02, 2022 09:51
[2022-04-02] MEDS: DEXTROSE 10% IV SOLUTION 1,000 ML IV SCH (10:49)
[2022-04-02] MEDS: ASPIRIN E.C. 81 MG (ECOTRIN) TAB PO SCH (10:50)
[2022-04-02] MEDS: MIDODRINE 10 MG (PROAMATINE) TAB PO SCH ×3 (10:50→19:51)
[2022-04-02] MEDS: PANTOPRAZOLE 40 MG (PROTONIX) TAB PO SCH (10:50)
--- NOTE | 2022-04-02 10:53 | Physical Therapy Progress Note ---
Therapy Progress Note Per nurse, pt on hold on this date. Pt was placed on nonrebreather overnight due to decreased O2 saturations. She was also given Ativan, unable to wake pt up to participate in skilled therapy due to lethargy. PT will attempt tx next available date. JULEE JOHNSON AIRLINE MANAGERIAL SUPERVISOR Apr 02, 2022 10:53
[2022-04-03] MEDS: ENOXAPARIN 40 MG/0.4 ML (LOVENOX) SYR SC SCH (05:35)
[2022-04-03] MEDS: inSUlin ASPART (NovoLOG) 1 UNIT/0.01 ML (CHARGE PER UNIT) SC SCH ×4 (06:26→21:47)
[2022-04-03] MEDS: RT-ALBUTEROL/IPRATROPIUM 3 ML (DUONEB) VIAL INH SCH ×3 (08:17→21:25)
[2022-04-03] MEDS: ASPIRIN E.C. 81 MG (ECOTRIN) TAB PO SCH (08:36)
[2022-04-03] MEDS: PANTOPRAZOLE 40 MG (PROTONIX) TAB PO SCH (08:36)
[2022-04-03] MEDS: MIDODRINE 10 MG (PROAMATINE) TAB PO SCH ×3 (08:36→21:46)
[2022-04-03] MEDS: DEXTROSE 10% IV SOLUTION 1,000 ML IV SCH ×2 (10:48→18:41)
--- NOTE | 2022-04-03 11:40 | Progress Note - Hospitalist ---
Subjective HPI/CC On Admission Date Seen by Provider: Apr 03, 2022 Time Seen by Provider: 11:36 PT ARRIVES VIA EMS FROM HOME--LIVES WITH HER SISTER AND [id number] WAS REPORTED TO EMS THAT PT HAS BEEN SICK FOR THE PAST FEW DAYS WITH FEVER AND DIARRHEA HAS NOT BEEN OUT OF BED FOR THE LAST 2 DAYS, PER EMS. TEMP IS 103.4 FOR EMS--PT UNAWARE OF FEVER BP 80'S/50'S, HR IN 140'S FOR EMS PT HAS COPD AND CONTINUES TO SMOKE. DOES NOT HAVE HOME O2 EMS REPORT THAT PT BECAME VERY SHORT OF BREATH VERY EASILY WITH MINIMAL EFFORT AT THE RESIDENCE. PT C/O PAIN TO LEFT RIBS FOR THE LAST WEEK. HURTS TO BREATHE OR MOVE STATES SHE DID FALL OVER A WEEK AGO, BUT HAS NOT SEEN ANYONE FOR THAT PROBLEM HAS A FREQUENT COUGH--PT STATES IS NORMAL FOR HER DENIES NAUSEA DENIES ABDOMINAL PAIN DOES NOT KNOW WHEN SHE LAST VOIDED DOES NOT KNOW WHEN SHE LAST ATE OR DRANK, BUT STATES SHE IS VERY THIRSTY NOW. CANNOT STATE WHY SHE HAS NOT BEEN EATING OR DRINKING. PT ALSO HAS HISTORY OF HTN, WELL CAD WITH STENTS IN 2009 PT ALSO HAS BEEN DX WITH DIABETES AND BEEN ON INSULIN IN THE PAST, BUT HAD QUIT TAKING IT 11 YEARS AGO PT WAS SEEN HERE 01/16/22--PT HAD NOT SEEN A DR IN AT LEAST 12 YEARS AT THAT TIME PT WAS ADMITTED AT THAT TIME WITH MULTIPLE PROBLEMS, INCLUDING SEVERE SEPSIS, UTI, CHF, PNEUMONIA, NSTEMI. 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 PT CANNOT STATE WHAT WAS DONE WHEN SHE WAS AT SHE STATES SHE HAS MEDICATION AT HOME, BUT DOES NOT KNOW WHAT MEDICATION SHE IS ON OR WHAT SHE TAKES IT FOR STATES SHE DOES NOT KNOW IF SHE TOOK HER MEDICATIONS TODAY OR NOT, OR WHEN SHE MIGHT HAVE LAST TAKEN ANY MEDICATION HAS NOT SOUGHT CARE UNTIL TONIGHT FOR THESE PROBLEMS STATES SHE "DOESN'T KNOW" WHY SHE DID NOT SEEK CARE PRIOR TO TONIGHT. Upon my arrival patient was somnolent would open up her eyes begin to answer question would trail off and she would fall back asleep. She did deny headache and denied pain. At baseline reportedly a poor historian. She had been scheduled for biopsy of a right adnexal mass suspicious for malignancy but did not stop her Plavix apparently was being rescheduled. She denied leg pain and there have been no reports of leg pain with known severe peripheral vascular disease. Subjective/Events-last exam Patient reports that she is bored looking forward to discharge.She voiced no complaints. Focused Exam Time of Focused Exam: 01:00 Objective Exam Vital Signs Vital Signs Date Time Temp Pulse Resp B/P (MAP) Pulse Ox O2 Delivery O2 Flow Rate FiO2 04/03/22 11:07 36.7 86 20 94/69 100 Nasal Cannula 3.00 04/02/22 23:17 32 Capillary Refill : Less Than 3 Seconds General Appearance: No Apparent Distress, Chronically ill, Cachetic Respiratory: Chest Non Tender, Lungs Clear, Normal Breath Sounds, No Accessory Muscle Use, No Respiratory Distress Cardiovascular: Regular Rate, Rhythm Gastrointestinal: Tenderness, Other (Diffuse abdominal distention bowel sounds positive) Results/Procedures Lab Patient resulted labs reviewed. Assessment/Plan Assessment and Plan Assess & Plan/Chief Complaint Assessment and Plan Assess & Plan/Chief Complaint (1) Septic shock Status: Acute Assessment & Plan: Uncertain etiology, initially with diarrhea and fever. C diff neg. Urine culture no growth. Blood cultures no growth to date. Possible pneumonia, but CT chest has had similar findings for chronic time period. Continue cefepime. Norepinephrine and LR. Appreciate Tsering ICU assistance. 03/24- holding IVF and giving lasix this am due to increasing swelling and worsening hypoxia overnight. Continue cefepime. 03/25- requiring both vasopressin and norepinephrine overnight, but vasopressin held again this am. Remains on cefepime. 03/26- cefepime completed, on norepinephrine alone still, new meds per Cardiology and attempting to wean norepi. 03/27patient continues to be maintained on norepinephrine 03/27patient continues to be maintained on norepinephrine 03/27patient DC norepinephrine 04/03 condition unchanged from yesterday patient waiting on bed and correction appears to be [facility] and rehab the beginning of the week but it appears that her still waiting on patient acceptance. Continue comfort care With hospice. (2) Pneumonia Status: Acute Assessment & Plan: Bilateral multifocal, concerning for possible underlying malignancy, particularly as findings are not new and she has been on more than one course of antibiotics. Continue cefepime for now. s/p cefepime x 5 days Qualifiers: (3) Adnexal mass Status: Acute Assessment & Plan: Was scheduled for biopsy outpatient, but was unable to be done due to blood thinners, holding currently, but given severity of current illness, not likely able to get done currently. Discussed difficulty in prognostic planning without biopsy. (4) CAD (coronary artery disease) Status: Chronic Assessment & Plan: Severe multivessel disease both coronary and peripheral, holding antiplatelets in hopes of biopsy shortly. (5) NSTEMI (non-ST elevated myocardial infarction) Status: Acute Assessment & Plan: Mild troponin elevation, appreciate Cardiology recommendations. Known severe CAD and multiple other vascular occlusions, was referred for CABG but had possible stroke and was deferred, has outpatient appt with Dr. Damon. Holding antiplatelets due to need for adnexal mass biopsy. (6) Cardiomyopathy Status: Chronic Qualifiers: Qualified Codes: I25.5 - Ischemic cardiomyopathy (7) Tobacco abuse Status: Chronic (8) HLD (hyperlipidemia) Status: Chronic (9) T2DM (type 2 diabetes mellitus) Status: Chronic Assessment & Plan: Sliding scale insulin protocol Qualifiers: Qualified Codes: E11.69 - Type 2 diabetes mellitus with other specified complication (10) HFrEF (heart failure with reduced ejection fraction) Status: Chronic Assessment & Plan: EF 30-35% 03/20/22. Appreciate Cardiology recommendations. 03/24 lasix 40 mg IV today, monitor BP closely 03/25- had low bp after lasix yesterday, but BNP is significantly up and CXR with worsening appearance, will defer to Tsering ICU and Cardiology on repeat lasix (11) Lactic acidosis Status: Resolved (12) Peripheral arterial disease Status: Chronic (13) Acute renal failure Status: Resolved (14) Carotid artery disease Status: Chronic (15) Acute respiratory failure Status: Acute Assessment & Plan: 03/25- Secondary to pneumonia, sepsis, possible underlying pulmonary mets. Now frequently requiring bipap. Discussed her tenuous status, she wants to stay full code and to be intubated if needed. Qualifiers: Qualified Codes: J96.01 - Acute respiratory failure with hypoxia (16) DVT prophylaxis Status: Acute Assessment & Plan: Enoxaparin Critical Care Critically Ill Patient ENZO MURRELL MD Apr 03, 2022 11:40
--- NOTE | 2022-04-03 11:46 | Physical Therapy Progress Note ---
Therapy Progress Note Pt refused as she just finished showering and is tired. Will follow up on Tuesday to resume PT care. MONICA CAMACHO PT Apr 03, 2022 11:46
--- NOTE | 2022-04-03 13:10 | Cardiology Progress Note ---
Subjective Date Seen by Provider: Apr 03, 2022 Time Seen by Provider: 13:07 Subjective/Events-last exam Patient was seen at bedside, sitting comfortably. Reporting that she is feeling significantly better. Denied any chest pain Review of Systems General: No Chills, No Night Sweats, No Fatigue, No Malaise, No Appetite, No Other HEENT: No Head Aches, No Visual Changes, No Eye Pain, No Ear Pain, No Dysphasia, No Sinus Congestion, No Post Nasal Drip, No Sore Throat, No Other Pulmonary: No Dyspnea, No Cough, No Pleuritic Chest Pain, No Other Cardiovascular: No: Chest Pain, Palpitations, Orthopnea, Paroxysmal Noc. Dyspnea, Edema, Lt Headedness, Other Focused Exam Time of Focused Exam: 01:00 Objective-Cardiology Exam Last Set of Vital Signs Vital Signs 04/02/22 04/03/22 23:17 11:07 Temp 36.7 Pulse 86 Resp 20 B/P (MAP) 94/69 Pulse Ox 100 O2 Delivery Nasal Cannula O2 Flow Rate 3.00 FiO2 32 I&O Intake and Output 04/02/22 23:59 Intake Total 1400 ml Output Total 1000 ml Balance 400 ml Intake Oral 1400 ml Output Urine Total 1000 ml # Voids 1 # Bowel Movements 1 General: Alert HEENT: Atraumatic, PERRLA Neck: Supple, No JVD, No Thyromegaly Lungs: Other (ronchi) Heart: Regular Rate, Normal S1, Normal S2 Abdomen: Normal Bowel Sounds, Soft Extremities: No Edema Skin: No Rashes, No Breakdown, No Significant Lesion Neuro: Normal Speech, Strength at 5/5 X4 Ext Psych/Mental Status: Mental Status NL, Mood NL Results Lab Laboratory Tests Test 04/02/22 16:10 04/02/22 20:30 04/03/22 05:37 04/03/22 11:06 Range/Units Glucometer 122 H 155 H 162 H 363 H 70-110 MG/DL A/P-Cardiology Admission Diagnosis Sepsis Pneumonia Non-ST elevation myocardial infarction Peripheral arterial disease Congestive heart failure, chronic compensated left ventricular systolic dysfunction, ischemic cardiomyopathy Assessment/Plan Sepsis, pneumonia, improved. Feeling better. Continue to monitor Hypotensive shock, better at this time, blood pressure is stable. Continue to monitor Non-ST elevation myocardial infarction. Has extensive cardiac history, Had a cardiac catheterization done by Dr. Navarro in 2009 and stenting to the LAD and circumflex artery. Had a cardiac catheterization with Dr. Preston in December 2021, patient was noted to have severe three-vessel coronary artery disease involving the distal left main coronary artery. Has moderate left ventricular systolic dysfunction. She was referred to for bypass surgery. Procedure was postponed due to questionable stroke. She is scheduled to see Dr. Damon as an outpatient. Conservative management is recommended at this time. Congestive heart failure, chronic compensated left ventricular systolic dysfunction. Ischemic cardiomyopathy. She was started on carvedilol and lisinopril as an outpatient. Unable to tolerate these medication at this time due to hypotension. Planning to restart them once her blood pressure is more stable 2D echocardiogram was done on January 16, [address] Preston as dilated cardiomyopathy with ejection fraction 35 to 40%, grade 2 diastolic dysfunction, mild mitral regurgitation. 2D echo was repeated on March 20, 2022 due to severe hypotension. Dilated left ventricle with severe diffuse left ventricular hypokinesia, apical akinesia, ejection fraction 30 to 35%. Mild mitral regurgitation, PA pressure around 20 mmHg Carotid artery stenosis, patient has severe stenosis at the right carotid artery, right subclavian artery and the origin of the right internal mammary artery. CT angiogram was done during her hospitalization showing significant left subclavian artery stenosis. Patient was referred for vascular surgery evaluation as discussed above Peripheral arterial disease, total occlusion of the right superficial femoral artery. Identified during her cardiac catheterization earlier in 2021. Referred for evaluation with vascular surgery. Active tobaccoism, educated and instructed on smoking cessation Diabetes mellitus, followed and managed by primary care physician Noncompliance with medications. Educated about compliance JONATHAN PATEL MD Apr 03, 2022 13:09
[2022-04-03] MEDS: guaiFENesin/DM (ROBITUSSIN DM) 10 ML UDC PO PRN (18:35)
[2022-04-04] MEDS: RT-ALBUTEROL/IPRATROPIUM 3 ML (DUONEB) VIAL INH SCH ×4 (02:51→22:49)
[2022-04-04] MEDS: ENOXAPARIN 40 MG/0.4 ML (LOVENOX) SYR SC SCH (04:25)
[2022-04-04] MEDS: HYDROcodone/APAP 5 MG/325 MG (LORTAB) TAB PO PRN ×2 (04:25→21:39)
[2022-04-04] MEDS: inSUlin ASPART (NovoLOG) 1 UNIT/0.01 ML (CHARGE PER UNIT) SC SCH ×2 (06:53→11:04)
[2022-04-04] MEDS: PANTOPRAZOLE 40 MG (PROTONIX) TAB PO SCH (09:32)
[2022-04-04] MEDS: MIDODRINE 10 MG (PROAMATINE) TAB PO SCH (09:32)
[2022-04-04] MEDS: ASPIRIN E.C. 81 MG (ECOTRIN) TAB PO SCH (09:32)
[2022-04-04] MEDS: guaiFENesin/DM (ROBITUSSIN DM) 10 ML UDC PO PRN ×2 (09:32→21:40)
--- NOTE | 2022-04-04 11:46 | Cardiology Progress Note ---
Subjective Date Seen by Provider: Apr 04, 2022 Time Seen by Provider: 11:45 Subjective/Events-last exam Patient was seen at bedside, laying down comfortably Feeling better. No new complaint Review of Systems General: No Chills, No Night Sweats; Fatigue, Malaise; No Appetite, No Other HEENT: No Head Aches, No Visual Changes, No Eye Pain, No Ear Pain, No Dysphasia, No Sinus Congestion, No Post Nasal Drip, No Sore Throat, No Other Pulmonary: No Dyspnea, No Cough, No Pleuritic Chest Pain, No Other Cardiovascular: No: Chest Pain, Palpitations, Orthopnea, Paroxysmal Noc. Dyspnea, Edema, Lt Headedness, Other Focused Exam Time of Focused Exam: 01:00 Objective-Cardiology Exam Last Set of Vital Signs Vital Signs 04/02/22 04/04/22 04/04/22 23:17 08:19 11:11 Temp 37.3 Pulse 94 Resp 22 B/P (MAP) 95/67 Pulse Ox 92 O2 Delivery Room Air O2 Flow Rate 3.00 FiO2 32 I&O Intake and Output 04/04/22 00:00 Intake Total 2580 ml Output Total 1200 ml Balance 1380 ml Intake Oral 1580 ml IV Total 1000 ml Output Urine Total 1200 ml # Bowel Movements 2 General: Alert, Oriented X3, Cooperative HEENT: Atraumatic, PERRLA Neck: Supple, No JVD, No Thyromegaly Lungs: Other (ronchi) Heart: Regular Rate, Normal S1, Normal S2 Abdomen: Normal Bowel Sounds, Soft Extremities: No Clubbing, No Cyanosis, No Edema Skin: No Rashes, No Breakdown, No Significant Lesion Neuro: Normal Speech, Strength at 5/5 X4 Ext Psych/Mental Status: Mental Status NL, Mood NL Results Lab Laboratory Tests Test 04/03/22 15:32 04/03/22 20:13 04/04/22 05:40 04/04/22 10:12 Range/Units Glucometer 278 H 270 H 185 H 218 H 70-110 MG/DL A/P-Cardiology Admission Diagnosis Sepsis Pneumonia Non-ST elevation myocardial infarction Peripheral arterial disease Congestive heart failure, chronic compensated left ventricular systolic dysfunction, ischemic cardiomyopathy Assessment/Plan Sepsis, pneumonia, improved. Feeling better. Continue to monitor Hypotensive shock, better at this time, blood pressure is stable. Continue to monitor Non-ST elevation myocardial infarction. Has extensive cardiac history, Had a cardiac catheterization done by Dr. Navarro in 2009 and stenting to the LAD and circumflex artery. Had a cardiac catheterization with Dr. Preston in December 2021, patient was noted to have severe three-vessel coronary artery disease involving the distal left main coronary artery. Has moderate left ventricular systolic dysfunction. She was referred to for bypass surgery. Procedure was postponed due to questionable stroke. She is scheduled to see Dr. Damon as an outpatient. Conservative management is recommended at this time. Congestive heart failure, chronic compensated left ventricular systolic dysfunction. Ischemic cardiomyopathy. She was started on carvedilol and lisinopril as an outpatient. Unable to tolerate these medication at this time due to hypotension. Planning to restart them once her blood pressure is more stable 2D echocardiogram was done on January 16, [address] Preston as dilated cardiomyopathy with ejection fraction 35 to 40%, grade 2 diastolic dysfunction, mild mitral regurgitation. 2D echo was repeated on March 20, 2022 due to severe hypotension. Dilated left ventricle with severe diffuse left ventricular hypokinesia, apical akinesia, ejection fraction 30 to 35%. Mild mitral regurgitation, PA pressure around 20 mmHg Carotid artery stenosis, patient has severe stenosis at the right carotid artery, right subclavian artery and the origin of the right internal mammary artery. CT angiogram was done during her hospitalization showing significant left subclavian artery stenosis. Patient was referred for vascular surgery evaluation as discussed above Peripheral arterial disease, total occlusion of the right superficial femoral artery. Identified during her cardiac catheterization earlier in 2021. Referred for evaluation with vascular surgery. Active tobaccoism, educated and instructed on smoking cessation Diabetes mellitus, followed and managed by primary care physician Noncompliance with medications. Educated about compliance JONATHAN PATEL MD Apr 04, 2022 11:46
--- NOTE | 2022-04-04 12:14 | Progress Note - Hospitalist ---
Subjective HPI/CC On Admission Date Seen by Provider: Apr 04, 2022 Time Seen by Provider: 10:00 PT ARRIVES VIA EMS FROM HOME--LIVES WITH HER SISTER AND [id number] WAS REPORTED TO EMS THAT PT HAS BEEN SICK FOR THE PAST FEW DAYS WITH FEVER AND DIARRHEA HAS NOT BEEN OUT OF BED FOR THE LAST 2 DAYS, PER EMS. TEMP IS 103.4 FOR EMS--PT UNAWARE OF FEVER BP 80'S/50'S, HR IN 140'S FOR EMS PT HAS COPD AND CONTINUES TO SMOKE. DOES NOT HAVE HOME O2 EMS REPORT THAT PT BECAME VERY SHORT OF BREATH VERY EASILY WITH MINIMAL EFFORT AT THE RESIDENCE. PT C/O PAIN TO LEFT RIBS FOR THE LAST WEEK. HURTS TO BREATHE OR MOVE STATES SHE DID FALL OVER A WEEK AGO, BUT HAS NOT SEEN ANYONE FOR THAT PROBLEM HAS A FREQUENT COUGH--PT STATES IS NORMAL FOR HER DENIES NAUSEA DENIES ABDOMINAL PAIN DOES NOT KNOW WHEN SHE LAST VOIDED DOES NOT KNOW WHEN SHE LAST ATE OR DRANK, BUT STATES SHE IS VERY THIRSTY NOW. CANNOT STATE WHY SHE HAS NOT BEEN EATING OR DRINKING. PT ALSO HAS HISTORY OF HTN, WELL CAD WITH STENTS IN 2009 PT ALSO HAS BEEN DX WITH DIABETES AND BEEN ON INSULIN IN THE PAST, BUT HAD QUIT TAKING IT 11 YEARS AGO PT WAS SEEN HERE 01/16/22--PT HAD NOT SEEN A DR IN AT LEAST 12 YEARS AT THAT TIME PT WAS ADMITTED AT THAT TIME WITH MULTIPLE PROBLEMS, INCLUDING SEVERE SEPSIS, UTI, CHF, PNEUMONIA, NSTEMI. 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 PT CANNOT STATE WHAT WAS DONE WHEN SHE WAS AT SHE STATES SHE HAS MEDICATION AT HOME, BUT DOES NOT KNOW WHAT MEDICATION SHE IS ON OR WHAT SHE TAKES IT FOR STATES SHE DOES NOT KNOW IF SHE TOOK HER MEDICATIONS TODAY OR NOT, OR WHEN SHE MIGHT HAVE LAST TAKEN ANY MEDICATION HAS NOT SOUGHT CARE UNTIL TONIGHT FOR THESE PROBLEMS STATES SHE "DOESN'T KNOW" WHY SHE DID NOT SEEK CARE PRIOR TO TONIGHT. Upon my arrival patient was somnolent would open up her eyes begin to answer question would trail off and she would fall back asleep. She did deny headache and denied pain. At baseline reportedly a poor historian. She had been scheduled for biopsy of a right adnexal mass suspicious for malignancy but did not stop her Plavix apparently was being rescheduled. She denied leg pain and there have been no reports of leg pain with known severe peripheral vascular disease. Subjective/Events-last exam Patient pleasant voicing no complaints. Staff reports she has been intermittently confused but not agitated and redirected easily. Focused Exam Time of Focused Exam: 01:00 Objective Exam Vital Signs Vital Signs Date Time Temp Pulse Resp B/P (MAP) Pulse Ox O2 Delivery O2 Flow Rate FiO2 04/04/22 11:11 37.3 94 22 95/67 92 Room Air 04/04/22 08:19 3.00 04/02/22 23:17 32 Capillary Refill : Less Than 3 Seconds General Appearance: No Apparent Distress, Chronically ill Respiratory: No Accessory Muscle Use, Other (Coarse bilateral breath sounds without wheezing) Cardiovascular: Regular Rate, Rhythm Results/Procedures Lab Patient resulted labs reviewed. Assessment/Plan Assessment and Plan Assess & Plan/Chief Complaint Assessment and Plan Assess & Plan/Chief Complaint (1) Septic shock Status: Acute Assessment & Plan: Uncertain etiology, initially with diarrhea and fever. C diff neg. Urine culture no growth. Blood cultures no growth to date. Possible pneumonia, but CT chest has had similar findings for chronic time period. Continue cefepime. Norepinephrine and LR. Appreciate [facility] ICU assistance. 03/24- holding IVF and giving lasix this am due to increasing swelling and worsening hypoxia overnight. Continue cefepime. 03/25- requiring both vasopressin and norepinephrine overnight, but vasopressin held again this am. Remains on cefepime. 03/26- cefepime completed, on norepinephrine alone still, new meds per Cardiology and attempting to wean norepi. 03/27patient continues to be maintained on norepinephrine 03/27patient continues to be maintained on norepinephrine 03/27patient DC norepinephrine 04/03 condition unchanged from yesterday patient waiting on bed and fdc appears to be [facility] and rehab the beginning of the week but it appears that her still waiting on patient acceptance. Continue comfort care With hospice. 04/04 no change in status see #4. We are initiating essential comfort care discontinuing nonessential noncomfort related medication today hopeful discharge tomorrow as per above. We will need to discuss fdc acceptance with addiction social worker. (2) Pneumonia Status: Acute Assessment & Plan: Bilateral multifocal, concerning for possible underlying malignancy, particularly as findings are not new and she has been on more than one course of antibiotics. Continue cefepime for now. s/p cefepime x 5 days Qualifiers: (3) Adnexal mass Status: Acute Assessment & Plan: Was scheduled for biopsy outpatient, but was unable to be done due to blood thinners, holding currently, but given severity of current illness, not likely able to get done currently. Discussed difficulty in prognostic planning without biopsy. (4) CAD (coronary artery disease) Status: Chronic Assessment & Plan: Severe multivessel disease both coronary and peripheral, holding antiplatelets in hopes of biopsy shortly. (5) NSTEMI (non-ST elevated myocardial infarction) Status: Acute Assessment & Plan: Mild troponin elevation, appreciate Cardiology recommendations. Known severe CAD and multiple other vascular occlusions, was referred for CABG but had possible stroke and was deferred, has outpatient appt with Dr. Damon. Holding antiplatelets due to need for adnexal mass biopsy. (6) Cardiomyopathy Status: Chronic Qualifiers: Qualified Codes: I25.5 - Ischemic cardiomyopathy (7) Tobacco abuse Status: Chronic (8) HLD (hyperlipidemia) Status: Chronic (9) T2DM (type 2 diabetes mellitus) Status: Chronic Assessment & Plan: Sliding scale insulin protocol Qualifiers: Qualified Codes: E11.69 - Type 2 diabetes mellitus with other specified complication (10) HFrEF (heart failure with reduced ejection fraction) Status: Chronic Assessment & Plan: EF 30-35% 03/20/22. Appreciate Cardiology recommendations. 03/24 lasix 40 mg IV today, monitor BP closely 03/25- had low bp after lasix yesterday, but BNP is significantly up and CXR with worsening appearance, will defer to [facility] ICU and Cardiology on repeat lasix (11) Lactic acidosis Status: Resolved (12) Peripheral arterial disease Status: Chronic (13) Acute renal failure Status: Resolved (14) Carotid artery disease Status: Chronic (15) Acute respiratory failure Status: Acute Assessment & Plan: 03/25- Secondary to pneumonia, sepsis, possible underlying pulmonary mets. Now frequently requiring bipap. Discussed her tenuous status, she wants to stay full code and to be intubated if needed. Qualifiers: Qualified Codes: J96.01 - Acute respiratory failure with hypoxia (16) DVT prophylaxis Status: Acute Assessment & Plan: Enoxaparin Critical Care Critically Ill Patient ENZO MURRELL MD Apr 04, 2022 12:14
[2022-04-05] MEDS: HYDROcodone/APAP 5 MG/325 MG (LORTAB) TAB PO PRN ×2 (01:59→11:19)
[2022-04-05] MEDS: RT-ALBUTEROL/IPRATROPIUM 3 ML (DUONEB) VIAL INH SCH ×3 (02:46→14:40)
--- NOTE | 2022-04-05 09:51 | Physical Therapy Progress Note ---
Therapy Progress Note Patient declined PT this a.m. PT attempted to encourage patient to perform OOB activity, however, patient continued to decline. RN notified. 1 ref SORAYA PICKARD PT Apr 05, 2022 09:51
--- NOTE | 2022-04-05 10:52 | Cardiology Progress Note ---
Subjective Date Seen by Provider: Apr 05, 2022 Time Seen by Provider: 10:40 Subjective/Events-last exam Patient is sitting up in bed, no new complaints. Focused Exam Time of Focused Exam: 01:00 Objective-Cardiology Exam Last Set of Vital Signs Vital Signs 04/02/22 04/04/22 04/05/22 23:17 08:19 11:05 Temp 36.8 Pulse 94 Resp 18 B/P (MAP) 154/93 (113) Pulse Ox 94 O2 Delivery Room Air O2 Flow Rate 3.00 FiO2 32 I&O Intake and Output 04/04/22 23:59 Intake Total 2120 ml Output Total 2300 ml Balance -180 ml Intake Oral 1320 ml IV Total 800 ml Output Urine Total 2300 ml General: Alert, Oriented X3, Cooperative HEENT: Atraumatic, PERRLA Neck: Supple, No JVD, No Thyromegaly Lungs: Other (ronchi) Heart: Regular Rate, Normal S1, Normal S2 Abdomen: Normal Bowel Sounds, Soft Extremities: No Clubbing, No Cyanosis, No Edema Skin: No Rashes, No Breakdown, No Significant Lesion Neuro: Normal Speech, Strength at 5/5 X4 Ext Psych/Mental Status: Mental Status NL, Mood NL A/P-Cardiology Admission Diagnosis Sepsis Pneumonia Non-ST elevation myocardial infarction Peripheral arterial disease Congestive heart failure, chronic compensated left ventricular systolic dysfunction, ischemic cardiomyopathy Assessment/Plan Sepsis, pneumonia, improved. Feeling better. Continue to monitor Hypotensive shock, better at this time, blood pressure is stable. Continue to monitor Non-ST elevation myocardial infarction. Has extensive cardiac history, Had a cardiac catheterization done by Dr. Navarro in 2009 and stenting to the LAD and circumflex artery. Had a cardiac catheterization with Dr. Preston in December 2021, patient was noted to have severe three-vessel coronary artery disease involving the distal left main coronary artery. Has moderate left ventricular systolic dysfunction. She was referred to for bypass surgery. Procedure was postponed due to questionable stroke. She is scheduled to see Dr. Damon as an outpatient. Conservative management is recommended at this time. Congestive heart failure, chronic compensated left ventricular systolic dysfunction. Ischemic cardiomyopathy. She was started on carvedilol and lisinopril as an outpatient. Unable to tolerate these medication at this time due to hypotension. Planning to restart them once her blood pressure is more stable 2D echocardiogram was done on January 16, [address] Preston as dilated cardiomyopathy with ejection fraction 35 to 40%, grade 2 diastolic dysfunction, mild mitral regurgitation. 2D echo was repeated on March 20, 2022 due to severe hypotension. Dilated left ventricle with severe diffuse left ventricular hypokinesia, apical akinesia, ejection fraction 30 to 35%. Mild mitral regurgitation, PA pressure around 20 mmHg Carotid artery stenosis, patient has severe stenosis at the right carotid artery, right subclavian artery and the origin of the right internal mammary artery. CT angiogram was done during her hospitalization showing significant left subclavian artery stenosis. Patient was referred for vascular surgery evaluation as discussed above Peripheral arterial disease, total occlusion of the right superficial femoral artery. Identified during her cardiac catheterization earlier in 2021. Referred for evaluation with vascular surgery. Active tobaccoism, educated and instructed on smoking cessation Diabetes mellitus, followed and managed by primary care physician Noncompliance with medications. Educated about compliance Supervisory-Addendum Brief Supervisory Addendum Participated in pt care: history, MDM, physical Personally performed: exam, history, MDM Care discussed with: JORDEN Results interpretation: Verified all documentation Notes: Patient was seen and evaluated with Kofi, examination performed, management plan was discussed, agree with the current scribed note, I made few changes to the note using Italic font Patient was seen at bedside, laying down comfortably Denied any chest pain or shortness of breath Awaiting for placement, currently asymptomatic Continue with conservative management, there is possibility of being discharged on hospice. KOFI ROJAS Apr 05, 2022 10:52 JONATHAN PATEL MD Apr 05, 2022 11:18
[2022-04-05 11:05] VITALS: BP 154/93
--- NOTE | 2022-04-05 11:54 | Discharge Summary ---
Diagnosis/Chief Complaint Date of Admission March 20, 2022 at 02:35 Date of Discharge Discharge Diagnosis Problems/Diagnosis: (1) Septic shock Assessment & Plan: Uncertain etiology, initially with diarrhea and fever. C diff neg. Urine culture no growth. Blood cultures no growth to date. Possible pneumonia, but CT chest has had similar findings for chronic time period. Continue cefepime. Norepinephrine and LR. Appreciate Tsering ICU assistance. 03/24- holding IVF and giving lasix this am due to increasing swelling and worsening hypoxia overnight. Continue cefepime. 03/25- requiring both vasopressin and norepinephrine overnight, but vasopressin held again this am. Remains on cefepime. 03/26- cefepime completed, on norepinephrine alone still, new meds per Cardiology and attempting to wean norepi. Status: Acute (2) Pneumonia Assessment & Plan: Bilateral multifocal, concerning for possible underlying malignancy, particularly as findings are not new and she has been on more than one course of antibiotics. Continue cefepime for now. s/p cefepime x 5 days Qualifiers: Status: Acute (3) Adnexal mass Assessment & Plan: Was scheduled for biopsy outpatient, but was unable to be done due to blood thinners, holding currently, but given severity of current illness, not likely able to get done currently. Discussed difficulty in prognostic planning without biopsy. Status: Acute (4) CAD (coronary artery disease) Assessment & Plan: Severe multivessel disease both coronary and peripheral, holding antiplatelets in hopes of biopsy shortly. Status: Chronic (5) NSTEMI (non-ST elevated myocardial infarction) Assessment & Plan: Mild troponin elevation, appreciate Cardiology recommendations. Known severe CAD and multiple other vascular occlusions, was referred for CABG but had possible stroke and was deferred, has outpatient appt with Dr. Damon. Holding antiplatelets due to need for adnexal mass biopsy. Status: Acute (6) Cardiomyopathy Qualifiers: Qualified Codes: I25.5 - Ischemic cardiomyopathy Status: Chronic (7) Tobacco abuse Status: Chronic (8) HLD (hyperlipidemia) Status: Chronic (9) T2DM (type 2 diabetes mellitus) Assessment & Plan: Sliding scale insulin protocol Qualifiers: Qualified Codes: E11.69 - Type 2 diabetes mellitus with other specified complication Status: Chronic (10) HFrEF (heart failure with reduced ejection fraction) Assessment & Plan: EF 30-35% 03/20/22. Appreciate Cardiology recommendations. 03/24 lasix 40 mg IV today, monitor BP closely 03/25- had low bp after lasix yesterday, but BNP is significantly up and CXR with worsening appearance, will defer to [facility] ICU and Cardiology on repeat lasix Status: Chronic (11) Lactic acidosis Status: Resolved Resolution Date/Time: 03/22/22 @ 13:40 (12) Peripheral arterial disease Status: Chronic (13) Acute renal failure Status: Resolved Resolution Date/Time: 03/22/22 @ 13:41 (14) Carotid artery disease Status: Chronic (15) Acute respiratory failure Assessment & Plan: 03/25- Secondary to pneumonia, sepsis, possible underlying pulmonary mets. Now frequently requiring bipap. Discussed her tenuous status, she wants to stay full code and to be intubated if needed. Qualifiers: Qualified Codes: J96.01 - Acute respiratory failure with hypoxia Status: Acute (16) DVT prophylaxis Assessment & Plan: Enoxaparin Status: Acute Discharge Summary-Simple/Stand Consultations Discharge Physical Examination Allergies: Coded Allergies: No Known Drug Allergies (Unverified , 08/21/10) Vitals & I&Os Vital Sign - Last 12Hours Date Time Temp Pulse Resp B/P (MAP) Pulse Ox O2 Delivery O2 Flow Rate FiO2 04/05/22 11:05 36.8 94 18 154/93 (113) 94 Room Air 04/04/22 08:19 3.00 04/02/22 23:17 32 Intake and Output 04/05/22 00:00 Intake Total 1870 ml Output Total 1100 ml Balance 770 ml Hospital Course See final discharge diagnosis. Discharge Instructions to patient/family Please see electronic discharge instructions given to patient. Discharge Medications Reviewed and agree with Discharge Medication list on patient's Discharge Instruction sheet JODIE CELIS MD Apr 05, 2022 11:54
[2022-04-05] MEDS ORDERED: ACHD5005 PO (11:57)
[2022-04-05] MEDS ORDERED: IBUP-1780 PO (11:57)
[2022-04-05] MEDS ORDERED: LORA-407 PO (11:57)
[2022-04-05] MEDS ORDERED: ACET-93 PO (11:57)
--- NOTE | 2022-04-05 11:59 | Discharge Summary ---
Discharge [facility] Reconcile Patient Problems Problems Reviewed?: Yes Discharge Medications New, Converted or Re-Newed RX: Transmitted to Pharmacy New Medications: Lorazepam (Ativan) 2 Mg Tablet 2 MG PO Q4H PRN for ANXIETY for 7 Days, #28 TAB Acetaminophen (Acetaminophen) 500 Mg Tablet 1000 MG PO Q6H PRN for PAIN-MILD (1-4) OR TEMP>100, #30 TAB Hydrocodone Bit/Acetaminophen (HYDROcodone/APAP 5 MG/325 MG TAB) 1 Tab Tab 1 EA PO Q4H PRN for PAIN-MODERATE (5-7), #28 TAB Ibuprofen (Ibuprofen) 800 Mg Tablet 800 MG PO Q6H PRN for PAIN-MILD (1-4) OR TEMP>100, #90 TAB Discontinued Medications: Aspirin/Acetaminophen/Caffeine (Excedrin Migraine Caplet) 250 Mg-250 Mg-65 Mg Tablet 2 EACH PO Q6-8HR PRN for Headache, TAB Atorvastatin Calcium (Atorvastatin Calcium) 40 Mg Tablet 80 MG PO DAILY, TAB TAKES 2 (40MG) TABS Clopidogrel Bisulfate (Clopidogrel) 75 Mg Tablet 75 MG PO DAILY, TAB Dapagliflozin Propanediol (Farxiga) 10 Mg Tablet 10 MG PO DAILY, TAB Glipizide (Glipizide) 5 Mg Tablet 5 MG PO DAILY, TAB Metformin HCl (Metformin HCl) 500 Mg Tablet 1000 MG PO BID WITH MEALS, TAB TAKES 2 (500MG) TABS Metoprolol Succinate (Metoprolol Succinate) 25 Mg Tab.er.24h 25 MG PO DAILY, TAB Patient Instructions Goal/Follow Up Appt: Patient Discharge on Hospice Activity & Diet Discharge Diet: No Restrictions Activity as Tolerated: Yes JODIE CELIS MD Apr 05, 2022 11:59
--- NOTE | 2022-04-05 12:45 | Occupational Ther Daily Note ---
OT Current Status-Daily Note Subjective Pt alert, sitting in recliner. Pt agrees to therapy. No c/o pain. Pt is very happy that she is doing better today. Mental Status/Objective Patient Orientation: Person, Place, Time, Situation Attachments: Lang Catheter, IV ADL-Treatment Therapy Code Descriptions/Definitions Functional [place] Measure: 0=Not Assessed/NA 4=Minimal Assistance 1=Total Assistance 5=Supervision or Setup 2=Maximal Assistance 6=Modified [place] 3=Moderate Assistance 7=Complete IndependenceSCALE: Activities may be completed with or without assistive devices. 7-Cmybonvnox-ojkxafc completes the activity by him/herself with no assistance from a helper. 5-Set-up or Clean-up Assistance-helper sets up or cleans up; patient completes activity. [place] assists only prior to or following the activity. 4-Supervision or Touching Assistance-helper provides verbal cues and/or touching/steadying and/or contact guard assistance as patient completes activity. Assistance may be provided throughout the activity or intermittently. 3-Partial/Moderate Assistance-helper does LESS THAN HALF the effort. [place] lifts, holds or supports trunk or limbs, but provides less than half the effort. 2-Substantial/Maximal Assistance-helper does MORE THAN HALF the effort. [place] lifts or holds trunk or limbs and provides more than half the effort. 5-Akadyikpa-wgiwys does ALL the effort. Patient does none of the effort to complete the activity. Or, the assistance of 2 or more helpers is required for the patient to complete the activity. If activity was not attempted, code reason: 7-Patient Refused. 9-Not Applicable-not attempted and the patient did not perform the activity before the current illness, exacerbation or injury. 10-Not Attempted due to Environmental Limitations-(lack of equipment, weather restraints, etc.). 88-Not Attempted due to Medical Conditions or Safety Concerns. Lower Body Dressing (QC): 4 (Pt is able to complete lower body dressing by threading pants over feet then stood with CGA for safety while pt hiked pants over hips. ) Pt declined any further ADLs at this time. Pt states that she is discharging today. After therapy, pt sitting in recliner with call light/phone in reach. All needs met in room. OT [facility]pc Goals Sample Book Maker Goals Time Frame: Apr 23, 2022 Eating (QC): 6 Oral Hygiene (QC): 5 Toileting Hygiene (QC): 4 Shower/Bathe Self (QC): 3 Upper Body Dressing (QC): 4 Lower Body Dressing (QC): 3 On/Off Footwear (QC): 4 Additional Goals: 1-Demonstrate ADL Tasks, 2-Verbalize Understanding, 3- ImproveStrength/Roya 1=Demonstrate adherence to instructed precautions during ADL tasks. 2=Patient will verbalize/demonstrate understanding of assistive devices/modifications for ADL. 3=Patient will improve strength/tolerance for activity to enable patient to perform ADL's. OT Education/Plan Problem List/Assessment Assessment: Decreased Activ Tolerance, Decreased UE Strength, Impaired Funct B alance Discharge Recommendations Plan/Recommendations: Continue POC Treatment Plan/Plan of Care Patient would benefit from OT for education, treatment and training to promote independence in ADL's, mobility, safety and/or upper extremity function for ADL's. Plan of Care: ADL Retraining, Functional Mobility, UE Funct Exercise/Act Treatment Duration: Apr 23, 2022 Frequency: 3 times per week (3-5x/week) Estimated Hrs Per Day: .25 hour per day Agreement: Yes Rehab Potential: Fair Time/GCodes Start Time: 10:30 Stop Time: 10:38 Total Time Billed (hr/min): 8 Billed Treatment Time 1 visit-ADL 1 (8 min) ALBERT ELLINGTON Apr 05, 2022 12:45
[2022-04-05 16:07] VITALS: BP 146/77
[2022-04-05 17:43] VITALS: BP 146/77
== END 2022-04-05 17:50 | disposition hospice, inpatient (51) | DRG 871 ==
LOC: EDUNIT# 23:10 → ER 23:18 → ICU 03-20 02:35 → 4TH 03-30 11:50
PROVIDERS: ADMIT Internal Medicine; ATTEND Internal Medicine
PROC: 5A0935A Assistance with Respiratory Ventilation, Less than 24 Consecutive Hours, High Flow/Velocity Cannula (ICD-10-PCS; 2022-03-22)
PROC: 5A09357 Assistance with Respiratory Ventilation, Less than 24 Consecutive Hours, Continuous Positive Airway Pressure (ICD-10-PCS; principal; 2022-03-23)
DX: A41.9 Sepsis, unspecified organism (principal); J18.9 Pneumonia, unspecified organism; R57.8 Other shock; I21.4 Non-ST elevation (NSTEMI) myocardial infarction; I50.23 Acute on chronic systolic (congestive) heart failure; J96.00 Acute respiratory failure, unspecified whether with hypoxia or hypercapnia; N17.9 Acute kidney failure, unspecified; J44.0 Chronic obstructive pulmonary disease with (acute) lower respiratory infection; M31.8 Other specified necrotizing vasculopathies; Z66 Do not resuscitate; Z20.822 Contact with and (suspected) exposure to COVID-19; R65.20 Severe sepsis without septic shock; E86.0 Dehydration; I25.5 Ischemic cardiomyopathy; I11.0 Hypertensive heart disease with heart failure; F17.210 Nicotine dependence, cigarettes, uncomplicated; I25.10 Atherosclerotic heart disease of native coronary artery without angina pectoris; E11.9 Type 2 diabetes mellitus without complications; R19.7 Diarrhea, unspecified; R68.0 Hypothermia, not associated with low environmental temperature; R15.9 Full incontinence of feces; E78.00 Pure hypercholesterolemia, unspecified; E03.9 Hypothyroidism, unspecified; N83.8 Other noninflammatory disorders of ovary, fallopian tube and broad ligament; I65.21 Occlusion and stenosis of right carotid artery; I70.201 Unspecified atherosclerosis of native arteries of extremities, right leg; Z91.14 Patient's other noncompliance with medication regimen; Z95.5 Presence of coronary angioplasty implant and graft; I25.2 Old myocardial infarction; Z79.84 Long term (current) use of oral hypoglycemic drugs; Z79.82 Long term (current) use of aspirin; Z79.4 Long term (current) use of insulin
CPT/HCPCS: 36415; 36600; 71045; 71250; 74176; 80048; 80053; 80061; 80306; 80320; 81000; 82150; 82533; 82550; 82553; 82805; 82947; 83605; 83690; 83735; 83880; 84100; 84132; 84145; 84443; 84484; 85007; 85025; 85027; 85610; 85652; 85730; 86141; 87015; 87040; 87045; 87046; 87081; 87088; 87324; 87449; 87636; 87899; 89055; 93005; 93041; 93306; 94640; 94660; 94760; 96374

== ENCOUNTER → 2022-04-08 | Outpatient (CLI) | payer MEDICAID, OTHER ==
[2022-04-08] VITALS (9 sets, daily range): BP systolic 133–165; BP diastolic 83–100
[~2022-04-08] VITALS: Ht 170 cm; Wt 63.7 kg
[~2022-04-08] MED LIST changes: +ACET-93 PO; +ACHD5005 PO; +ASPI1TAB23 PO; +ATOR40TA70 PO; +CLOP75TA28 PO; +DAPA10TA PO; +GLIP5TAB13 PO; +HYDROcodone/APAP 5 MG/325 MG (LORTAB) TAB PO PRN; +IBUP-1780 PO; +LIDOCAINE 1% INJ 20 ML VIAL INJ ONE; +LORA-407 PO; +METF-397 PO; +MIDAZOLAM 2 MG/2 ML (VERSED) VIAL IVP ONE; +MTP25TSR PO; +NS IV 1000 ML 1,000 ML IV STA; +fentaNYL INJ 100 MCG/2 ML AMP IVP ONE
[2022-04-08 07:48] LABS: HEMATOCRIT 37 % (35-52); HEMOGLOBIN 11.9 g/dL (11.5-16.0); MEAN CORPUSCULAR HEMOGLOBIN 31 pg (25-34); MEAN CORPUSCULAR HGB CONC 33 g/dL (32-36); MEAN CORPUSCULAR VOLUME 96 fL (80-99); MEAN PLATELET VOLUME 10.1 fL (9.0-12.2); PLATELET COUNT 339 10^3/uL (130-400); WHITE BLOOD COUNT 4.6 10^3/uL (4.3-11.0)
[2022-04-08 08:05] LABS: PROTHROMBIN TIME PATIENT 13.5 SEC (12.2-14.7)
--- NOTE | 2022-04-08 09:47 | Pre-Procedure Progress Note ---
Pre-Procedure Progress Note H&P Reviewed The H&P was reviewed, patient examined and no changes noted. Date H&P Reviewed: Apr 08, 2022 Time H&P Reviewed: 08:00 Pre-Procedure Diagnosis: pre sacral mass DANIEL SIFUENTES MD Apr 08, 2022 09:47
--- NOTE | 2022-04-08 10:22 | Diagnostic Imaging Report ---
INDICATION: Presacral mass. Patient presents for CT-guided biopsy. TECHNIQUE: All CT scans use one or more of the following dose optimizing techniques: automated exposure control, MA and/or KvP adjustment based on patient size and exam type or iterative reconstruction. Patient brought to the CT suite. Axial imaging through the chest, abdomen and pelvis was performed to evaluate appropriate location performed with biopsy. Preliminary images do demonstrate moderate to large bilateral pleural effusions. There continue to be areas of parenchymal consolidation in bilateral lower lobes as well as the lingula. There is some nodular densities in the right middle lobe largest measuring 15 mm. There are several smaller ones more medial in the right middle lobe and indeterminate. There is some gallstones in the gallbladder. Left kidney is atrophic with large calculus in the left renal pelvis region. Bowel loops are of normal caliber. Large adnexal mass in the right which is partially calcified is again noted. Presacral soft tissue density is noted similar to the CT study from 03/20/2022 but significantly improved when compared with the outside CT from [facility] performed 01/18/2022. Patient was positioned in the [id number] decubitus position. A grid was placed. The right pelvis was prepped and draped usual sterile fashion. Small amount of 1% lidocaine was utilized for local anesthesia. 18-gauge coaxial Temno needle was advanced placed with its tip in the abnormal soft tissue in the presacral space. 4 core biopsies were obtained. The needle was removed and hemostasis was obtained. Follow-up imaging shows no complicating features. Total procedure time was approximately 8 minutes. This procedure was performed with constant patient monitoring with radiology nursing. IMPRESSION: Successful CT-guided presacral soft tissue mass core biopsy, as described. Pathology results are currently pending. Preliminary images demonstrate a moderate to large bilateral pleural effusions with bilateral areas of parenchymal consolidation and indeterminate nodular densities right middle lobe. Dictated by: Dictated on workstation # [id number]
== END ==
LOC: SDC 06:52
PROVIDERS: ATTEND Surgery
DX: R19.00 Intra-abdominal and pelvic swelling, mass and lump, unspecified site (principal); J90 Pleural effusion, not elsewhere classified
CPT/HCPCS: 36415; 77012; 85027; 85610; 85730; 88305; 88341; 88342

== ENCOUNTER 2023-01-09 17:08 | Inpatient (IN) | payer OTHER, MEDICAID ==
[~2023-01-09] VITALS: Ht 170.2 cm; Wt 78.0 kg
[~2023-01-09 17:08] MED LIST changes: -HYDROcodone/APAP 5 MG/325 MG (LORTAB) TAB PO PRN; -LIDOCAINE 1% INJ 20 ML VIAL INJ ONE; -MIDAZOLAM 2 MG/2 ML (VERSED) VIAL IVP ONE; -NS IV 1000 ML 1,000 ML IV STA; -fentaNYL INJ 100 MCG/2 ML AMP IVP ONE
[2023-01-09] MEDS ORDERED: NS IV 500 ML 500 ML IV STA (17:25)
[2023-01-09 17:34] LABS: BASOPHILS % (AUTO) 0 % (0-10); EOSINOPHILS % (AUTO) 0 % (0-10); HEMATOCRIT 40 % (35-52); LYMPHOCYTES # (AUTO) 0.2 10^3/uL (1.0-4.0); LYMPHOCYTES % (AUTO) 4 % (12-44); MEAN CORPUSCULAR HEMOGLOBIN 32 pg (25-34); MEAN CORPUSCULAR HGB CONC 35 g/dL (32-36); MEAN CORPUSCULAR VOLUME 91 fL (80-99); MEAN PLATELET VOLUME 10.8 fL (9.0-12.2); MONOCYTES # (AUTO) 0.2 10^3/uL (0.0-1.0); MONOCYTES % (AUTO) 6 % (0-12); NEUTROPHILS # (AUTO) 3.8 10^3/uL (1.8-7.8); NEUTROPHILS % (AUTO) 90 % (42-75); PLATELET COUNT 179 10^3/uL (130-400); POTASSIUM 3.7 MMOL/L (3.6-5.0); WHITE BLOOD COUNT 4.2 10^3/uL (4.3-11.0)
[2023-01-09 17:36] LABS: CALCIUM 9.6 MG/DL (8.5-10.1)
--- NOTE | 2023-01-09 17:36 | ED General ---
General Chief Complaint: General Problems/Pain Stated Complaint: LOW BP Source of Information: Patient, EMS Exam Limitations: No Limitations (ROME PEREIRA MD) History of Present Illness Date Seen by Provider: Jan 09, 2023 Time Seen by Provider: 17:15 Initial Comments Patient is a 62-year-old female who presents to the emergency department by EMS from a local correction, [facility] chief complaint generalized weakness. EMS reports that they were called earlier for low blood pressure and weakness. Patient refused transport at that time. They were called again and patient was transported. She actually denies really any symptoms currently. No cough, sore throat, upper respiratory infection symptoms. No abdominal pain, nausea or vomiting. No dysuria, urgency or frequency. She states she had 1 episode of diarrhea this morning and was given some Imodium. Denies any swelling, joint pain or rashes. No headache. She states she is "bored" at the correction. She seems to be a little confused reports that she is not a diabetic however she is on glipizide and metformin. History of CHF although she denies any heart conditions. Not on any antihypertensives blood pressure noted to be 95/56. Awake alert oriented. No acute distress. Tachycardic with heart rate of 111. Not on oxygen but does have a history of COPD. Room air sats Timing/Duration: 12 Hours Associated Systoms: Denies Symptoms (ROME PEREIRA MD) Allergies and Home Medications Allergies Coded Allergies: No Known Drug Allergies (Unverified , 08/21/10) Patient Home Medication List Home Medication List Reviewed: Yes (ROME PEREIRA MD) Acetaminophen (Acetaminophen) 500 Mg Tablet, 1,000 MG PO Q6H PRN for PAIN-MILD (1-4) OR TEMP>100 Prescribed by: JODIE CELIS on 04/05/22 1157 Hydrocodone Bit/Acetaminophen (HYDROcodone/APAP 5 MG/325 MG TAB) 1 Tab Tab, 1 EA PO Q4H PRN for PAIN-MODERATE (5-7) Prescribed by: JODIE CELIS on 04/05/22 1158 Ibuprofen (Ibuprofen) 800 Mg Tablet, 800 MG PO Q6H PRN for PAIN-MILD (1-4) OR TEMP>100 Prescribed by: JODIE CELIS on 04/05/22 1157 Lorazepam (Ativan) 2 Mg Tablet, 2 MG PO Q4H PRN for ANXIETY Prescribed by: JODIE CELIS on 04/05/22 1158 Review of Systems Review of Systems Constitutional: see HPI EENTM: no symptoms reported Respiratory: no symptoms reported Cardiovascular: no symptoms reported Gastrointestinal: diarrhea Genitourinary: no symptoms reported Musculoskeletal: no symptoms reported Skin: no symptoms reported (ROME PEREIRA MD) All Other Systems Reviewed Negative Unless Noted: Yes (ROME PEREIRA MD) Past Nwiqged-Uyfnbh-Ujeiao Hx Immunizations Up To Date Tetanus Booster (TDap): Unknown First/Initial COVID19 Vaccinat: 2020 Second COVID19 Vaccination Enrique: 2020 (ROME PEREIRA MD) Seasonal Allergies Seasonal Allergies: No (ROME PEREIRA MD) Past Medical History Surgery/Hospitalization HX: DIABETIC Surgeries: Yes Adenoidectomy, Cardiac, Coronary Stent, Tonsillectomy Respiratory: No Cardiac: Yes (STEMI 2009 WITH STENTS X3 TO LAD & L CIRCUMFLEX;CHF;EF25- 30%;PAD;CAROTID DZ) Cardiomyopathy, Coronary Artery Disease, Heart Attack, High Cholesterol, Hypertension, Peripheral Vascular Neurological: No Reproductive Disorders: No 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 - PER A DICTATED NOTE FROM DR. FRAGOSO ON 02/23/22: FINDINGS OF A PELVIC MASS WAS DISCOVERED IN HER EVALUATION AT AND ANY INTERVENTION FOR HER VASCULAR ISSUES WAS POSTPONED UNTIL THE PELVIC MASS HAD BEEN EVALUATED AND PT WAS REFERRED TO DR. FRAGOSO, GENERAL SURGEON, LOCALLY. COLONOSCOPY DONE AT DID NOT FIND ANY COLON ABNORMALITIES. SOCIAL HISTORY: -SMOKES 1 1/2 PPD -ETOH--DENIES USE -DRUGS DENIES USE PAST SURGICAL HISTORY: -TONSILLECTOMY / ADENOIDECTOMY -08/21/10--CARDIAC CATH WHEN PT HAD [facility] -DONE BY DR. MAYES-ANGIOPLASTY + STENT TO LAD; EF 25-30% -09/01/2010--CARDIAC CATH BY DR. MAYES--STENTS X 2 TO LEFT CIRCUMFLEX; CARDIAC CATH 01/16/[address] OSORIO: IMPRESSION: 1. Markedly elevated left ventricular end-diastolic pressure. 2. Severe [place] three-vessel coronary artery disease as outlined above that did involve a bifurcation lesion of the distal left main coronary artery. 3. The patient is known to have moderate left ventricular systolic dysfunction with an estimated ejection fraction of 35-40% by echocardiogram performed prior to this procedure. There was no significant valvular heart disease identified on this echocardiogram. 4. The patient has significant disease of the right subclavian artery and branches as noted above. 5. The patient appears to have occlusion of the right superficial femoral artery as outlined above. 6. The patient will need a cardiothoracic surgical consultation for consideration of coronary artery bypass surgery. I will reach out to [facility] in this regard (ROME PEREIRA MD) Physical Exam Vital Signs Vital Signs - First Documented 01/09/23 17:09 Temp 37.0 Pulse 111 Resp 18 B/P (MAP) 96/63 (74) Pulse Ox 97 O2 Delivery Room Air (ANAI AHUJA DO) Vital Signs Capillary Refill : (ROME PEREIRA MD) Height, Weight, BMI Height: '" Weight: 146lbs. oz. [id number]; 24.18 BMI Method:Stated General Appearance: No Apparent Distress, Chronically ill, Thin Eyes: Bilateral Eye Normal Inspection, Bilateral Eye PERRL, Bilateral Eye EOMI HEENT: PERRL/EOMI Neck: Normal Inspection Respiratory: Lungs Clear, Normal Breath Sounds, No Accessory Muscle Use, No Respiratory Distress Cardiovascular: Regular Rate, Rhythm, Tachycardia (111) Gastrointestinal: Non Tender, Soft, Abnormal Bowel Sounds (Hyperactive bowel sounds) Extremity: Normal Capillary Refill, Normal Range of Motion, No Calf Tenderness, No Pedal Edema Neurologic/Psychiatric: Alert, Oriented x3, No Motor/Sensory Deficits, Depressed Affect Skin: Normal Color, Warm/Dry (ROME PEREIRA MD) Focused Exam Sepsis Stage: Severe Sepsis Possible Source: GI Tract/Intra-Abdominal Lactate Level 01/09/23 17:45: Lactic Acid Level 2.96*H 01/09/23 21:16: Lactic Acid Level 2.23*H 01/09/23 23:12: Lactic Acid Level 1.13 (ANAI AHUJA DO) Time of Focused Exam: 18:30 Respiratory: Normal Breath Sounds, No Accessory Muscle Use, No Respiratory Distress Cardiovascular: Regular Rate, Rhythm, No Murmur Capillary Refill: Less Than 3 Seconds Skin: normal color, warm/dry Lactic Acid Level Laboratory Tests Test 01/09/23 17:45 01/09/23 21:16 01/09/23 23:12 Lactic Acid Level 2.96 MMOL/L (0.50-2.00) *H 2.23 MMOL/L (0.50-2.00) *H 1.13 MMOL/L (0.50-2.00) (ANAI AHUJA DO) Within 3hrs of presentation: Admin fluids, Admin ABX, Blood cultures prior to ABX's, Focus exam, Lactate level (ANAI AHUJA DO) Progress/Results/Core Measures Suspected Sepsis SIRS Temperature: Pulse: Respiratory Rate: Laboratory Tests 01/09/23 17:10: Blood Pressure / Mean: Laboratory Tests 01/09/23 17:10: (ROME PEREIRA MD) Results/Orders Lab Results Laboratory Tests Test 01/09/23 17:10 01/09/23 17:20 01/09/23 17:25 01/09/23 17:45 Range/Units White Blood Count 4.2 L 4.3-11.0 10^3/uL Red Blood Count 4.39 3.80-5.11 10^6/uL Hemoglobin 14.0 11.5-16.0 g/dL Hematocrit 40 35-52 % Mean Corpuscular Volume 91 80-99 fL Mean Corpuscular Hemoglobin 32 25-34 pg Mean Corpuscular Hemoglobin Concent 35 32-36 g/dL Red Cell Distribution Width 12.5 10.0-14.5 % Platelet Count 179 130-400 10^3/uL Mean Platelet Volume 10.8 9.0-12.2 fL Immature Granulocyte % (Auto) 1 % Neutrophils (%) (Auto) 90 H 42-75 % Lymphocytes (%) (Auto) 4 L 12-44 % Monocytes (%) (Auto) 6 0-12 % Eosinophils (%) (Auto) 0 0-10 % Basophils (%) (Auto) 0 0-10 % Neutrophils # (Auto) 3.8 1.8-7.8 10^3/uL Lymphocytes # (Auto) 0.2 L 1.0-4.0 10^3/uL Monocytes # (Auto) 0.2 0.0-1.0 10^3/uL Eosinophils # (Auto) 0.0 0.0-0.3 10^3/uL Basophils # (Auto) 0.0 0.0-0.1 10^3/uL Immature Granulocyte # (Auto) 0.0 0.0-0.1 10^3/uL Neutrophils % (Manual) 61 % Lymphocytes % (Manual) 2 % Monocytes % (Manual) 7 % Eosinophils % (Manual) 0 % Basophils % (Manual) 0 % Metamyelocytes % 1 % Band Neutrophils 29 % Blood Morphology Comment NORMAL Prothrombin Time 14.1 12.2-14.7 SEC INR Comment 1.0 0.8-1.4 Activated Partial Thromboplast Time 33 24-35 SEC Sodium Level 140 135-145 MMOL/L Potassium Level 3.7 3.6-5.0 MMOL/L Chloride Level 101 98-107 MMOL/L Carbon Dioxide Level 23 21-32 MMOL/L Anion Gap 16 H 5-14 MMOL/L Blood Urea Nitrogen 31 H 7-18 MG/DL Creatinine 1.21 0.60-1.30 MG/DL Estimat Glomerular Filtration Rate 51 BUN/Creatinine Ratio 26 Glucose Level 105 70-105 MG/DL Calcium Level 9.6 8.5-10.1 MG/DL Magnesium Level 1.0 *L 1.6-2.4 MG/DL Total Bilirubin 3.4 H 0.1-1.0 MG/DL Direct Bilirubin 2.6 H 0.0-0.3 MG/DL Indirect Bilirubin 0.8 MG/DL Aspartate Amino Transf (AST/SGOT) 1762 H 5-34 U/L Alanine Aminotransferase (ALT/SGPT) 1082 H 0-55 U/L Alkaline Phosphatase 575 H 40-136 U/L Troponin I 0.063 H <0.028 NG/ML B-Type Natriuretic Peptide 155.8 H <100.0 PG/ML Total Protein 6.9 6.4-8.2 GM/DL Albumin 3.9 3.2-4.5 GM/DL Glucometer 113 H 70-110 MG/DL Urine Color ZOHRA H Urine Clarity SL CLOUDY Urine pH 6.0 5-9 Urine Specific [place] 1.010 L 1.016-1.022 Urine Protein NEGATIVE NEGATIVE Urine Glucose (UA) NEGATIVE NEGATIVE Urine Ketones NEGATIVE NEGATIVE Urine Nitrite NEGATIVE NEGATIVE Urine Bilirubin 1+ H NEGATIVE Urine Urobilinogen 4.0 < = 1.0 MG/DL Urine Leukocyte Esterase NEGATIVE NEGATIVE Urine RBC (Auto) NEGATIVE NEGATIVE Urine RBC NONE /HPF Urine WBC NONE /HPF Urine Squamous Epithelial Cells 2-5 /HPF Urine Crystals NONE /LPF Urine Bacteria NEGATIVE /HPF Urine Casts NONE /LPF Urine Mucus NEGATIVE /LPF Urine Culture Indicated NO Urine Opiates Screen NEGATIVE NEGATIVE Urine Oxycodone Screen NEGATIVE NEGATIVE Urine Methadone Screen NEGATIVE NEGATIVE Urine Propoxyphene Screen NEGATIVE NEGATIVE Urine Barbiturates Screen NEGATIVE NEGATIVE Ur Tricyclic Antidepressants Screen NEGATIVE NEGATIVE Urine Phencyclidine Screen NEGATIVE NEGATIVE Urine Amphetamines Screen NEGATIVE NEGATIVE Urine Methamphetamines Screen NEGATIVE NEGATIVE Urine Benzodiazepines Screen NEGATIVE NEGATIVE Urine Cocaine Screen NEGATIVE NEGATIVE Urine Cannabinoids Screen NEGATIVE NEGATIVE Lactic Acid Level 2.96 *H 0.50-2.00 MMOL/L SARS-CoV-2 RNA (RT-PCR) Not Detected Not Detecte Test 01/09/23 18:40 01/09/23 21:16 01/09/23 23:12 Range/Units Erythrocyte Sedimentation Rate 33 H 0-30 MM/HR Ammonia 31 11-32 UMOL/L C-Reactive Protein High Sensitivity 3.63 H 0.00-0.50 MG/DL Amylase Level 54 25-125 U/L Lipase 32 8-78 U/L Acetaminophen Level < 10 L 10-30 UG/ML Serum Alcohol < 10 <10 MG/DL Lactic Acid Level 2.23 *H 1.13 0.50-2.00 MMOL/L (ANAI AHUJA DO) My Orders Orders - ANAI AHUJA DO Ekg Tracing (01/09/23 17:59) Catheter(Urinary) Insert & Ass 03,15 (01/09/23 17:59) Monitor-Rhythm Ecg Trace Only (01/09/23 17:59) Ed Iv/Invasive Line Start (01/09/23 17:59) Ns Iv 1000 Ml (Sodium Chloride 0.9%) (01/09/23 18:00) Lidocaine 2% (Urojet) (Xylocaine Urojet) (01/09/23 18:00) Bnp Foard (01/09/23 18:05) Magnesium (01/09/23 18:05) Troponin I Foard (01/09/23 18:05) Ct Chest/Abdomen/Pelvis W (01/09/23 18:27) Iohexol Injection (Omnipaque 350 Mg/Ml 1 (01/09/23 18:30) Received Contrast (Hold Metformin- Contr (01/09/23 18:30) Ns (Ivpb) (Sodium Chloride 0.9% Ivpb Bag (01/09/23 18:30) Ammonia (01/09/23 18:30) Amylase (01/09/23 18:30) Lipase (01/09/23 18:30) Hs C Reactive Protein (01/09/23 18:30) Erythrocyte Sedimentation Rate (01/09/23 18:30) Acetaminophen (01/09/23 18:40) Alcohol (01/09/23 18:40) Drug Screen Stat (Urine) (01/09/23 18:40) Magnesium 1 Gm/100 Ml Ivpb (Magnesium El (01/09/23 18:45) Piperacillin Sodium/Tazobactam (Zosyn Vi (01/09/23 19:45) Ed Admission (Communication) (01/09/23 19:33) Ed Iv/Invasive Line Start (01/09/23 20:24) Lactated Ringers (Lr 1000 Ml Iv Solution (01/09/23 20:30) Ed Iv/Invasive Line Start (01/09/23 21:39) Ns Iv 1000 Ml (Sodium Chloride 0.9%) (01/09/23 21:45) Piperacillin Sodium/Tazobactam (Zosyn Vi (01/10/23 03:45) (ANAI AHUJA DO) Medications Given in ED Current Medications Medications Dose Ordered Sig/Vasile Route Start Time Stop Time Status Last Admin Dose Admin Iohexol 100 ml ONCE ONCE IV 01/09/23 18:30 01/09/23 18:31 DC 01/09/23 18:49 73 ML Lactated Ringer's 1,000 ml @ 0 mls/hr Q0M ONCE IV 01/09/23 20:30 01/09/23 20:31 DC 01/09/23 20:56 0 MLS/HR Piperacillin Sod/ Tazobactam Sod 4.5 gm/Sodium Chloride 100 ml @ 200 mls/hr ONCE ONCE IV 01/09/23 19:45 01/09/23 20:14 DC 01/09/23 20:06 200 MLS/HR Piperacillin Sod/ Tazobactam Sod 4.5 gm/Sodium Chloride 100 ml @ 200 mls/hr ONCE ONCE IV 01/10/23 03:45 01/10/23 04:14 DC 01/10/23 04:05 200 MLS/HR Sodium Chloride 100 ml ONCE ONCE IV 01/09/23 18:30 01/09/23 18:31 DC 01/09/23 18:49 80 ML (ANAI AHUJA DO) Vital Signs/I&O 01/09/23 17:09 Temp 37.0 Pulse 111 Resp 18 B/P (MAP) 96/63 (74) Pulse Ox 97 O2 Delivery Room Air 01/10/23 00:00 Intake Total 2000 ml Balance 2000 ml (ANAI AHUJA DO) Vital Signs/I&O Capillary Refill : (ROME PEREIRA MD) Point of Care Testing Finger Stick Blood Glucose: 113 (ROME PEREIRA MD) Progress Note : Time: 17:37 Progress Note *Notified by nursing staff, Alondra VINCENT that the patient dropped her blood pressure when standing from 99 systolic down to 80. She was symptomatic. Alondra reported that patient's urine looked dark orange. Will initiate sepsis protocol Seen and evaluated by me, 62-year-old female with low blood pressure. Evaluation today includes review of the medical record, prior ER visits, physical exam, sepsis protocol CBC, comprehensive metabolic panel, coags, D- dimer, UA, blood cultures, lactic acid, chest x-ray. Patient's physical exam is pertinent for ill-appearing 62-year-old female who is mentating appropriately. Poor skin turgor dry oral mucosa. Lungs are clear, heart is regular tachycardic at 111. Abdomen is soft, nontender. No edema in her extremities. Differential diagnosis based on history and physical exam, sepsis, pneumonia, urinary tract infection. Work-up pending at the time of this dictation. Care will be passed to Dr. AHUJA at shift change, 6 PM. (ROME PEREIRA MD) Progress Note : Progress Note 1800--ASSUMED CARE FROM DR. PEREIRA, ALL STUDIES PENDING AT THIS TIME. ADDITIONAL LAB/ TESTS ORDERED. SEPSIS PROTOCOL HAS BEEN INITIATED. BP > 100 SYSTOLIC AT THIS TIME, HAS BEEN LOW 60'S SYSTOLIC PRIOR TO MY ARRIVAL. PT IS AWAKE, ORIENTED X 4, PLEASANT. HER ONLY COMPLAINT IS THAT SHE IS TIRED. SHE DENIES ANY PRIOR ABDOMINAL SURGERIES PT RECEIVED: -IV FLUIDS -ANTIBIOTICS -MAGNESIUM PT IS A FULL CODE REVIEWED PRIOR RECORDS, INCLUDING LONGTERM PAPERS, ER VISITS, ADMITS, H&P'S, CONSULTS, TESTS/PROCEDURES AND DISCHARGE SUMMARIES DISCUSSED TEST RESULTS AND NEED FOR ADMIT AND PT IS AGREEABLE TO PLAN. CURRENTLY NO ICU BEDS, BUT WILL BE AFTER 0700 DUE TO STAFFING ISSUES--WILL HOLD PT IN ER UNTIL ICU BED AVAILABLE 0445--PT CONTINUES TO REST QUIETLY. VITALS STABLE. PT VOICES NO COMPLAINTS. (ANAI AHUJA DO) ECG Initial ECG Impression Date: Jan 09, 2023 Initial ECG Impression Time: 18:04 Initial ECG Rate: 105 Initial ECG Rhythm: S.Tach Initial ECG Impression: Nonspecific Changes Initial ECG Comparisson: Changed (FROM 03/20/22--EKG IS IMPROVED TODAY) Comment INTERPRETED BY ME (ANAI AHUJA DO) Diagnostic Imaging Comments CXR--PER RADIOLOGIST REPORT AT 181 Comparison: 03/28/2022. Findings: Linear opacities are present in both lung bases. No consolidation. Previously noted pleural effusions have resolved. No pneumothorax. Heart is normal in size. Impression: 1. No acute abnormality has developed. 2. A small amount of linear atelectasis is present in both lung bases. CT CHEST/ABDOMEN/PELVIS--PER RADIOLOGIST REPORT AT 192 COMPARISON: 04/08/2022. FINDINGS: CT CHEST: Non rounded trachea. Linear areas of atelectasis are present in both lower lobes. No pneumonia or edema. No bronchiectasis or pulmonary fibrosis. No pleural effusion or pneumothorax. Thyroid is normal. No supraclavicular or axillary lymphadenopathy. No mediastinal or hilar lymphadenopathy. Heart is borderline enlarged without pericardial effusion. Normal caliber thoracic aorta has moderate calcifications. Coronary artery calcifications and/or stents are present. No worrisome focal osseous lesion. CT ABDOMEN AND PELVIS: No free intraperitoneal air or fluid. Liver has no focal abnormality. Cholelithiasis present with associated pericholecystic fluid. There is now mild intrahepatic and extrahepatic biliary duct dilatation. The common bile duct measures up to 11 mm and has abrupt truncation at the ampulla. Spleen and pancreas are normal. No feature of acute pancreatitis. No adrenal mass. Stable severe atrophy of the left kidney which demonstrates mild enhancement. A large stone on the left extrarenal pelvis may be due to chronic obstruction. Right kidney enhances normally. The partially calcified right adnexal mass is stable at 5.8 x 5.6 cm. No new adnexal mass. Uterus is normal. No pericolonic inflammatory change or bowel obstruction. Appendix is normal. Stomach is decompressed. Atherosclerotic aorta is normal in caliber. No worrisome focal osseous lesion. IMPRESSION: 1. Imaging features are highly suspicious for acute cholecystitis. Additionally, there is dilation of the common bile duct and intrahepatic bile ducts which may be due to choledocholithiasis. Consider MRCP or ERCP for further evaluation. 2. No pneumonia. 3. Unchanged partially calcified right adnexal mass. Reviewed: Reviewed by Me (ANAI AHUJA DO) Departure Communication (Admissions) 1927--SPOKE WITH DR. FRAGOSO, SURGEON, ACCEPTS PT FOR ADMIT. WILL CONSULT MEDICINE 1929--SPOKE WITH DR. ORTEGA, HOSPITALIST FOR [facility], SHE WILL DO ADMIT ORDERS. ADVISES TO ADMIT TO ICU WILL BOARD PT IN ER UNTIL ICU BED IS AVAILABLE AFTER 0700 (ANAI AHUJA DO) Impression Primary Impression: Severe sepsis Additional Impressions: DEHYDRATION Hypomagnesemia Elevated troponin Cholecystitis, acute with cholelithiasis Cholangitis NIDDM HX OF CAD WITH STENT Disposition: ADMITTED INPATIENT Condition: Stable Admissions Decision to Admit Reason: Admit from ER (General) Decision to Admit/Date: Jan 09, 2023 Time/Decision to Admit Time: 19:30 (ANAI AHUJA DO) Departure-Patient Inst. Referrals: [facility] [place]) Primary Care Physician BRENDAN VELAZCO APRN (Family) Primary Care Physician ROME PEREIRA MD Jan 09, 2023 17:36 ANAI AHUJA DO Jan 09, 2023 18:12
[2023-01-09 17:40] LABS: CREATININE SERUM 1.21 MG/DL (0.60-1.30)
[2023-01-09 17:48] LABS: CLARITY,URINE SL CLOUDY; COLOR,URINE AMBER; GLUCOSE, URINE (UA) NEGATIVE (NEGATIVE); KETONES,URINE NEGATIVE (NEGATIVE); LEUKOCYTE ESTERASE ,URINE NEGATIVE (NEGATIVE); NITRITE,URINE NEGATIVE (NEGATIVE); PROTEIN,URINE NEGATIVE (NEGATIVE)
[2023-01-09] MEDS ORDERED: LIDOCAINE UROJET 2% GEL 10 ML PKG TOP ONE (18:00)
[2023-01-09] MEDS ORDERED: NS IV 1000 ML 1,000 ML IV SCH ×2 (18:00→21:45)
[2023-01-09 18:01] LABS: ALBUMIN 3.9 GM/DL (3.2-4.5)
[2023-01-09 18:04] LABS: TOTAL PROTEIN 6.9 GM/DL (6.4-8.2)
[2023-01-09 18:05] LABS: BILIRUBIN,TOTAL 3.4 MG/DL (0.1-1.0)
[2023-01-09 18:09] LABS: BILIRUBIN,DIRECT 2.6 MG/DL (0.0-0.3); BILIRUBIN,INDIRECT 0.8 MG/DL
[2023-01-09 18:11] LABS: PROTHROMBIN TIME PATIENT 14.1 SEC (12.2-14.7)
--- NOTE | 2023-01-09 18:14 | Diagnostic Imaging Report ---
Chest 1 view, AP/PA only Indication: Tachycardia and hypotension. Comparison: 03/28/2022. Findings: Linear opacities are present in both lung bases. No consolidation. Previously noted pleural effusions have resolved. No pneumothorax. Heart is normal in size. Impression: 1. No acute abnormality has developed. 2. A small amount of linear atelectasis is present in both lung bases. Dictated by: Dictated on workstation # [id number]
[2023-01-09 18:17] LABS: BAND NEUTROPHILS 29 %; BASOPHILS % (MANUAL) 0 %; EOSINOPHILS % (MANUAL) 0 %; LYMPHOCYTES % (MANUAL) 2 %; METAMYELOCYTES % 1 %; MONOCYTES % (MANUAL) 7 %; NEUTROPHILS % (MANUAL) 61 %; RBC MORPH NORMAL
[2023-01-09] MEDS ORDERED: HOLD METFORMIN - RECEIVED CONTRAST 20 ML VIAL IV SCH (18:30)
[2023-01-09] MEDS ORDERED: IOHEXOL 350 MG/ML 100 ML (OMNIPAQUE 350) VIAL IV ONE (18:30)
[2023-01-09] MEDS ORDERED: NS 100 ML (IVPB) BAG IV ONE (18:30)
[2023-01-09 18:36] LABS: BACTERIA,URINE NEGATIVE /HPF; BILIRUBIN,URINE 1+ (NEGATIVE)
[2023-01-09] MEDS: MAGNESIUM 1 GM/100 ML IVPB 100 ML IV SCH ×3 (18:52→19:09)
[2023-01-09 19:01] LABS: AMYLASE 54 U/L (25-125)
[2023-01-09 19:02] LABS: AMMONIA 31 UMOL/L (11-32)
[2023-01-09 19:04] LABS: AMPHETAMINE SCREEN, URINE NEGATIVE (NEGATIVE); BARBITURATE SCREEN URINE NEGATIVE (NEGATIVE); BENZODIAZEPINES SCREEN URINE NEGATIVE (NEGATIVE); CANNABINOID SCREEN, URINE NEGATIVE (NEGATIVE); COCAINE SCREEN URINE NEGATIVE (NEGATIVE); METHADONE STAT NEGATIVE (NEGATIVE); OPIATE SCREEN URINE NEGATIVE (NEGATIVE); OXYCODONE STAT NEGATIVE (NEGATIVE); PROPOXYPHENE STAT NEGATIVE (NEGATIVE); TRICYCLIC ANTIDEPRESSANTS SCRE NEGATIVE (NEGATIVE)
[2023-01-09 19:10] LABS: LIPASE 32 U/L (8-78)
--- NOTE | 2023-01-09 19:21 | Diagnostic Imaging Report ---
PROCEDURE: CT chest, abdomen, and pelvis with contrast. TECHNIQUE: Multiple contiguous axial images were obtained through the chest, abdomen, and pelvis after the administration of intravenous contrast. Auto Exposure Controls were utilized during the CT exam to meet ALARA standards for radiation dose reduction. INDICATION: Sepsis with elevated liver function test. COMPARISON: 04/08/2022. FINDINGS: CT CHEST: Non rounded trachea. Linear areas of atelectasis are present in both lower lobes. No pneumonia or edema. No bronchiectasis or pulmonary fibrosis. No pleural effusion or pneumothorax. Thyroid is normal. No supraclavicular or axillary lymphadenopathy. No mediastinal or hilar lymphadenopathy. Heart is borderline enlarged without pericardial effusion. Normal caliber thoracic aorta has moderate calcifications. Coronary artery calcifications and/or stents are present. No worrisome focal osseous lesion. CT ABDOMEN AND PELVIS: No free intraperitoneal air or fluid. Liver has no focal abnormality. Cholelithiasis present with associated pericholecystic fluid. There is now mild intrahepatic and extrahepatic biliary duct dilatation. The common bile duct measures up to 11 mm and has abrupt truncation at the ampulla. Spleen and pancreas are normal. No feature of acute pancreatitis. No adrenal mass. Stable severe atrophy of the left kidney which demonstrates mild enhancement. A large stone on the left extrarenal pelvis may be due to chronic obstruction. Right kidney enhances normally. The partially calcified right adnexal mass is stable at 5.8 x 5.6 cm. No new adnexal mass. Uterus is normal. No pericolonic inflammatory change or bowel obstruction. Appendix is normal. Stomach is decompressed. Atherosclerotic aorta is normal in caliber. No worrisome focal osseous lesion. IMPRESSION: 1. Imaging features are highly suspicious for acute cholecystitis. Additionally, there is dilation of the common bile duct and intrahepatic bile ducts which may be due to choledocholithiasis. Consider MRCP or ERCP for further evaluation. 2. No pneumonia. 3. Unchanged partially calcified right adnexal mass. Dictated by: Dictated on workstation # [id number]
[2023-01-09] MEDS ORDERED: PIPERACILLIN SODIUM/TAZOBACTAM 4.5 GM in NS (IVPB) 100 ML IV ONE (19:45)
[2023-01-09] MEDS ORDERED: LACTATED RINGERS 1,000 ML IV ONE (20:30)
[2023-01-10] VITALS (17 sets, daily range): BP systolic 104–141; BP diastolic 61–78
[2023-01-10] MEDS ORDERED: PIPERACILLIN SODIUM/TAZOBACTAM 4.5 GM in NS (IVPB) 100 ML IV ONE (03:45)
[2023-01-10] MEDS ORDERED: BISACODYL 10 MG SUPP (DULCOLAX) PR PRN (06:30)
[2023-01-10] MEDS ORDERED: ANTACID SUSP 30 ML UDC (MYLANTA) PO PRN (06:30)
[2023-01-10] MEDS ORDERED: CALCIUM CARBONATE 500 MG (TUMS) TAB.CHEW PO PRN (06:30)
[2023-01-10] MEDS ORDERED: LORazepam INJ 2 MG/ML (ATIVAN) VIAL IVP PRN (06:30)
[2023-01-10] MEDS ORDERED: diphenhydrAMINE 50 MG/ML INJ (BENADRYL) IVP PRN (06:30)
[2023-01-10] MEDS ORDERED: ACETAMINOPHEN 325 MG TABLET PO PRN (06:30)
[2023-01-10] MEDS ORDERED: polyethylene glycoL POWDER 17 GM (MIRALAX) PACK PO PRN (06:30)
[2023-01-10] MEDS ORDERED: MILK OF MAGNESIA 400 MG/5 ML 30 ML UDC PO PRN (06:30)
[2023-01-10] MEDS ORDERED: ONDANSETRON 4 MG (ZOFRAN) ORAL DISSOLVE TAB PO PRN (06:30)
[2023-01-10] MEDS ORDERED: LACTULOSE SYRUP 10GM/15ML (ENULOSE) 30ML UDC PO PRN (06:30)
[2023-01-10] MEDS ORDERED: ONDANSETRON 4 MG/2 ML (SDV) Z0FRAN IV PRN (06:30)
[2023-01-10] MEDS ORDERED: LORazepam 0.5 MG (ATIVAN) TABLET PO PRN (06:30)
[2023-01-10] MEDS ORDERED: NS IV 500 ML 500 ML IV PRN (06:30)
[2023-01-10] MEDS ORDERED: diphenhydrAMINE 25 MG TAB (BENADRYL) PO PRN (06:30)
--- NOTE | 2023-01-10 06:45 | Tele-ICU Consult ---
History of Present Illness History of Present Illness Date Seen by Provider: Jan 10, 2023 Time Seen by Provider: 06:29 History of Present Illness eICU consult 62 yo NHR F brought to ED for hypotention and weakness, Has Hx of COPD, In ED BP was 95/56 with HR 111 but had orthostatic hypotension Had episode of diarrhea at [facility] CAD, PAD, Has pelvic mass which is being evaluated at [facility], Was in CCL 01/19 found to have LVEFR 35-40%, Severe 3 vessel disease. thought to need CABG, had stent In ED LA 2.96, then 2.23, then 1.13, WBC 4,2, Hb 14, Cr 1.21, T Bili is elevated at 3.4 with AST 1762, ALT 1082, acetaminophen level < 10 CXR ok, CT abd has gall bladder stones, Has both intrahepatic and extrabiliry duct dilatation. Left kidney has stone, chronic obstruction? Pt started on IV Zosyn ED note describes normal BS, Heart sinus tach ,Abd non tender, soft, hyperactive bowel sounds Allergies and Home Medications Allergies Coded Allergies: No Known Drug Allergies (Unverified , 08/21/10) Home Medications Acetaminophen 500 Mg Tablet, 1,000 MG PO Q6H PRN for PAIN-MILD (1-4) OR TEMP>100 Prescribed by: JODIE CELIS on 04/05/22 1157 Hydrocodone Bit/Acetaminophen 1 Tab Tab, 1 EA PO Q4H PRN for PAIN-MODERATE (5-7) Prescribed by: JODIE CELIS on 04/05/22 1158 Ibuprofen 800 Mg Tablet, 800 MG PO Q6H PRN for PAIN-MILD (1-4) OR TEMP>100 Prescribed by: JODIE CELIS on 04/05/22 1157 Lorazepam 2 Mg Tablet, 2 MG PO Q4H PRN for ANXIETY Prescribed by: JODIE CELIS on 04/05/22 1158 Past Medical/Social/Family Hx Patient Social History Tobacco Use?: No Use of E-Cig and/or Vaping dev: No Substance use?: No Alcohol Use?: No Immunizations Up To Date Influenza Vaccine Up-to-Date: Yes; Up-to-Date First/Initial COVID19 Vaccinat: 2020 Second COVID19 Vaccination Enrique: 2020 Tetanus Booster (TDap): Unknown Current Status status: No Advance Directives: Yes Advance Directive Location: FULL CODE Communicates: Verbally Primary Language: Nigerian Preferred Spoken Language: Nigerian Family Medical History Family Hx: NON-COMPLIANCE IN ALL ASPECTS OF CARE--HAD NOT SEEN A DR IN 10 YEARS, QUIT TAKING ALL MEDICATIONS > 10 YEARS AGO ADMITTED 01/16/22 FOR MULTIPLE ISSUES AND THEN TRANSFERRED TO FOR NSTEMI WITH MULTIVESSEL DISEASE OF CORONARIES, CAROTID AND PERIPHERAL ARTERY DISEASE TO LEGS. - PER A DICTATED NOTE FROM DR. FRAGOSO ON 02/23/22: FINDINGS OF A PELVIC MASS WAS DISCOVERED IN HER EVALUATION AT AND ANY INTERVENTION FOR HER VASCULAR ISSUES WAS POSTPONED UNTIL THE PELVIC MASS HAD BEEN EVALUATED AND PT WAS REFERRED TO DR. FRAGOSO, GENERAL SURGEON, LOCALLY. COLONOSCOPY DONE AT DID NOT FIND ANY COLON ABNORMALITIES. SOCIAL HISTORY: -SMOKES 1 1/2 PPD -ETOH--DENIES USE -DRUGS DENIES USE PAST SURGICAL HISTORY: -TONSILLECTOMY / ADENOIDECTOMY -08/21/10--CARDIAC CATH WHEN PT HAD [place] -DONE BY DR. MAYES-ANGIOPLASTY + STENT TO LAD; EF 25-30% -09/01/2010--CARDIAC CATH BY DR. MAYES--STENTS X 2 TO LEFT CIRCUMFLEX; CARDIAC CATH 01/16/[address] OSORIO: IMPRESSION: 1. Markedly elevated left ventricular end-diastolic pressure. 2. Severe la posta three-vessel coronary artery disease as outlined above that did involve a bifurcation lesion of the distal left main coronary artery. 3. The patient is known to have moderate left ventricular systolic dysfunction with an estimated ejection fraction of 35-40% by echocardiogram performed prior to this procedure. There was no significant valvular heart disease identified on this echocardiogram. 4. The patient has significant disease of the right subclavian artery and branches as noted above. 5. The patient appears to have occlusion of the right superficial femoral artery as outlined above. 6. The patient will need a cardiothoracic surgical consultation for consideration of coronary artery bypass surgery. I will reach out to [facility] in this regard Review of Systems Constitutional: see HPI EENTM: see HPI Respiratory: see HPI Cardiovascular: see HPI Gastrointestinal: see HPI Genitourinary: see HPI Musculoskeletal: see HPI Skin: see HPI Psychiatric/Neurological: See HPI Focused Exam Lactate Level 01/09/23 17:45: Lactic Acid Level 2.96*H 01/09/23 21:16: Lactic Acid Level 2.23*H 01/09/23 23:12: Lactic Acid Level 1.13 Height, Weight, BMI Height: '" Weight: 146lbs. oz. 66.174183fb; 22.00 BMI Method:Stated Time of Focused Exam: 18:30 Exam Exam Patient acknowledged, consented, and participated in this virtual visit which was conducted using real time audio/video Vital Signs Date Time Temp Pulse Resp B/P (MAP) Pulse Ox O2 Delivery O2 Flow Rate FiO2 01/10/23 06:13 36.7 87 16 109/58 93 Room Air 01/09/23 17:09 37.0 111 18 96/63 (74) 97 Room Air I & O 01/10/23 07:00 Intake Total 4100 ml Balance 4100 ml Height & Weight Height: '" Weight: 146lbs. oz. 66.390116xi; 22.00 BMI Method:Stated General Appearance: No Apparent Distress, Chronically ill, Thin HEENT: PERRL/EOMI Neck: Normal Inspection Respiratory: Normal Breath Sounds, No Accessory Muscle Use, No Respiratory Distress Cardiovascular: Regular Rate, Rhythm, No Murmur Capillary Refill: Less Than 3 Seconds Gastrointestinal: normal bowel sounds, non tender Extremity: Normal Capillary Refill, Normal Range of Motion, No Calf Tenderness, No Pedal Edema Neurologic/Psychiatric: Alert, Oriented x3, No Motor/Sensory Deficits, Depressed Affect Skin: Normal Color, Warm/Dry Results Lab Laboratory Tests 01/09/23 17:10 Assessment/Plan Assessment/Plan gall bladder sepsis, continue abx ,monitor BP, re hydrate, Gen surg to see, sounds like impacted stone. Spoke to mirror machine feeder: Critically Ill Patient Time spent with patient (mins): 25 CHONG UNDERWOOD MD Jan 10, 2023 06:45
[2023-01-10] MEDS: NS IV 1000 ML 1,000 ML IV SCH ×3 (08:12→22:31)
--- NOTE | 2023-01-10 09:12 | Consultation - Surgery ---
LEROY CHAVEZ 01/10/23 0912: History of Present Illness History of Present Illness Patient Consulted On(aquilino/time) Date Seen by Provider: Jan 10, 2023 Time Seen by Provider: 07:45 History of Present Illness Gretta is a 62 yo F with a history of CAD with stent placements (2009), HFreF, HTN, COPD, DM and tobacco smoking that was brought to the ER on 01/09 on EMS per due to concerns of weakness reported by skilled nursing staff. Per ER notes, the patient's review of systems was negative apart from diarrhea, and she was comfortable appearing and mentally intact. An isolated episode of hypotension (systolic dropping from 96 to 80) in the waiting room was reported. A CT of the chest, abdomen and pelvis obtained showed pericholectystic fluid, cholithiasis, and mild dilation of the of the intrahepatic ducts and common bile duct (11 mm). For these findings as well as hypomagnesemia, elevated lactic acid, and elevated liver enzymes, the patient was admitted to [facility] ICU. This morning, she reports that her diarrhea has resolved and she had one solid BM this since this morning. She also states that her weakness has resolved and notes that she has never had an incident like this before and that there was no associated dizziness, weakness, or headache. She smokes 6 cigarettes/day for the past 30 years. Denies EtOH or illicit drug use. She denies abdominal pain, chest pain, SOB or skin changes. Allergies and Home Medications Allergies Coded Allergies: No Known Drug Allergies (Unverified , 08/21/10) Patient Home Medication List Acetaminophen (Acetaminophen) 500 Mg Tablet, 1,000 MG PO Q6H PRN for PAIN-MILD (1-4) OR TEMP>100 Prescribed by: JODIE CELIS on 04/05/22 1157 Hydrocodone Bit/Acetaminophen (HYDROcodone/APAP 5 MG/325 MG TAB) 1 Tab Tab, 1 EA PO Q4H PRN for PAIN-MODERATE (5-7) Prescribed by: JODIE CELIS on 04/05/22 1158 Ibuprofen (Ibuprofen) 800 Mg Tablet, 800 MG PO Q6H PRN for PAIN-MILD (1-4) OR TEMP>100 Prescribed by: JODIE CELIS on 04/05/22 1157 Lorazepam (Ativan) 2 Mg Tablet, 2 MG PO Q4H PRN for ANXIETY Prescribed by: JODIE CELIS on 04/05/22 1158 Past Oejjelh-Ztkypl-Kyfnbr Hx Patient Social History Smoking Status: Current Everyday Smoker Alcohol Use?: No Have you traveled recently?: No Immunizations Up To Date Tetanus Booster (TDap): Unknown Seasonal Allergies Seasonal Allergies: No Surgeries History of Surgeries: Yes Surgeries: Adenoidectomy, Cardiac, Coronary Stent, Tonsillectomy Respiratory History of Respiratory Disorde: No Cardiovascular History of Cardiac Disorders: Yes (STEMI 2009 WITH STENTS X3 TO LAD & L CIRCUMFLEX;CHF;EF25-30%;PAD;CAROTID DZ) Cardiac Disorders: Cardiomyopathy, Coronary Artery Disease, Heart Attack, High Cholesterol, Hypertension, Peripheral Vascular Neurological History of Neurological Disord: No Reproductive System Hx Reproductive Disorders: No 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: 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 Genitourinary History of Genitourinary Disor: Yes Genitourinary Disorders: Bladder Infection, Kidney Stones, UTI-Chronic Gastrointestinal History of Gastrointestinal Di: No Musculoskeletal History of Musculoskeletal Dis: No Endocrine History of Endocrine Disorders: Yes (NON COMPLAINT) Endocrine Disorders: Diabetes, Insulin dep, Hypothyroidsim HEENT History of HEENT Disorders: No Cancer History of Cancer: No Psychosocial History of Psychiatric Problem: No Integumentary History of Skin or Integumenta: No Blood Transfusions History of Blood Disorders: No Family Medical History Significant Family History: No Pertinent Family Hx Review of Systems-General Constitutional: No fever; weakness; No weight gain, No weight loss Respiratory: No cough, No dyspnea on exertion, No hemoptysis Cardiovascular: No chest pain Gastrointestinal: No abdominal pain; diarrhea; No melena, No nausea, No vomiting Musculoskeletal: No back pain Skin: No change in color, No pruritus Psychiatric/Neurological: Weakness, Other (poor balance) Physical Exam-General Problems Physical Exam Vital Signs Vital Signs - First Documented 01/09/23 17:09 Temp 37.0 Pulse 111 Resp 18 B/P (MAP) 96/63 (74) Pulse Ox 97 O2 Delivery Room Air Capillary Refill : Less Than 3 Seconds General Appearance: no apparent distress HEENT: No scleral icterus (R), No scleral icterus (L) Neck: non-tender, supple Respiratory: No chest non-tender; lungs clear, normal breath sounds, no respiratory distress, no accessory muscle use Cardiovascular: regular rate, rhythm, no murmur Gastrointestinal: normal bowel sounds, non tender, soft Extremities: no pedal edema, no calf tenderness Neurologic/Psychiatric: alert, oriented x 3 Skin: normal color, warm/dry; No jaundice Lymphatic: no adenopathy Data Review Labs Laboratory Tests 01/09/23 17:10: White Blood Count 4.2L, Red Blood Count 4.39, Hemoglobin 14.0, Hematocrit 40, Mean Corpuscular Volume 91, Mean Corpuscular Hemoglobin 32, Mean Corpuscular Hemoglobin Concent 35, Red Cell Distribution Width 12.5, Platelet Count 179, Mean Platelet Volume 10.8, Immature Granulocyte % (Auto) 1, Neutrophils (%) (Auto) 90H, Lymphocytes (%) (Auto) 4L, Monocytes (%) (Auto) 6, Eosinophils (%) (Auto) 0, Basophils (%) (Auto) 0, Neutrophils # (Auto) 3.8, Lymphocytes # (Auto) 0.2L, Monocytes # (Auto) 0.2, Eosinophils # (Auto) 0.0, Basophils # (Auto) 0.0, Immature Granulocyte # (Auto) 0.0, Neutrophils % (Manual) 61, Lymphocytes % (Manual) 2, Monocytes % (Manual) 7, Eosinophils % (Manual) 0, Basophils % ( Manual) 0, Metamyelocytes % 1, Band Neutrophils 29, Blood Morphology Comment NORMAL, Prothrombin Time 14.1, INR Comment 1.0, Activated Partial Thromboplast Time 33, Sodium Level 140, Potassium Level 3.7, Chloride Level 101, Carbon Dioxide Level 23, Anion Gap 16H, Blood Urea Nitrogen 31H, Creatinine 1.21, Estimat Glomerular Filtration Rate 51, BUN/Creatinine Ratio 26, Glucose Level 105, Calcium Level 9.6, Magnesium Level 1.0*L, Total Bilirubin 3.4H, Direct Bilirubin 2.6H, Indirect Bilirubin 0.8, Aspartate Amino Transf (AST/SGOT) 1762H, Alanine Aminotransferase (ALT/SGPT) 1082H, Alkaline Phosphatase 575H, Troponin I 0.063H, B-Type Natriuretic Peptide 155.8H, Total Protein 6.9, Albumin 3.9 01/09/23 17:20: Glucometer 113H 01/09/23 17:25: Urine Color AMBERH, Urine Clarity SL CLOUDY, Urine pH 6.0, Urine Specific [place] 1.010L, Urine Protein NEGATIVE, Urine Glucose (UA) NEGATIVE, Urine Ketones NEGATIVE, Urine Nitrite NEGATIVE, Urine Bilirubin 1+H, Urine Urobilinogen 4.0, Urine Leukocyte Esterase NEGATIVE, Urine RBC (Auto) NEGATIVE, Urine RBC NONE, Urine WBC NONE, Urine Squamous Epithelial Cells 2-5, Urine Crystals NONE, Urine Bacteria NEGATIVE, Urine Casts NONE, Urine Mucus NEGATIVE, Urine Culture Indicated NO, Urine Opiates Screen NEGATIVE, Urine Oxycodone Screen NEGATIVE, Urine Methadone Screen NEGATIVE, Urine Propoxyphene Screen NEGATIVE, Urine Barbiturates Screen NEGATIVE, Ur Tricyclic Antidepressants Screen NEGATIVE, Urine Phencyclidine Screen NEGATIVE, Urine Amphetamines Screen NEGATIVE, Urine Methamphetamines Screen NEGATIVE, Urine Benzodiazepines Screen NEGATIVE, Urine Cocaine Screen NEGATIVE, Urine Cannabinoids Screen NEGATIVE 01/09/23 17:45: Lactic Acid Level 2.96*H, SARS-CoV-2 RNA (RT-PCR) Not Detected 01/09/23 18:40: Erythrocyte Sedimentation Rate 33H, Ammonia 31, C-Reactive Protein High Sensitivity 3.63H, Amylase Level 54, Lipase 32, Acetaminophen Level < 10L, Serum Alcohol < 10 01/09/23 21:16: Lactic Acid Level 2.23*H 01/09/23 23:12: Lactic Acid Level 1.13 Microbiology 01/09/23 Blood Culture - Preliminary, Resulted Gram Negative Wm See Comments Assessment/Plan Assessment/Plan Assessment/Plan Acute cholecystitis Elevated liver enzymes Direct hyperbilirubinemia Hypomagnesemia Diarrhea Elevated troponin (0.063 on 01/09) Elevated BNP (155.8 on 01/09) CAD - 3 stents placed in 2009; CABG was recommended by cardiology based on catherization in 2021 HF with EF 30-35% - per 2021 echocardiogram IDDM Repeat troponin. Clinical Quality Measures DVT/VTE Risk/Contraindication: Contraindications-Pharm: Other *list below* Other: OR ESPERANZA FRAGOSO DO 01/10/23 1407: History of Present Illness History of Present Illness Time Seen by Provider: 12:10 History of Present Illness Surgery asked to consult regarding elevated LFTs and possible Choledochalithiasis with obstruction. HPI per ED: Patient is a 62-year-old female who presents to the emergency department by EMS from a local skilled nursing, [facility] rehab chief complaint generalized weakness. EMS reports that they were called earlier for low blood pressure and weakness. Patient refused transport at that time. They were called again and patient was transported. She actually denies really any symptoms currently. No cough, sore throat, upper respiratory infection symptoms. No abdominal pain, nausea or vomiting. No dysuria, urgency or frequency. She states she had 1 episode of diarrhea this morning and was given some Imodium. Denies any swelling, joint pain or rashes. No headache. She states she is "bored" at the skilled nursing. She seems to be a little confused reports that she is not a diabetic however she is on glipizide and metformin. History of CHF although she denies any heart conditions. Not on any antihyperte nsives blood pressure noted to be 95/56. When I saw her this afternoon, she denied any chest pain and no abdominal pain. She stated she only came to the ER because she was weak. She states they take very good care of her at the skilled nursing. She has been very non-compliant with her medications and medical care. Allergies and Home Medications Allergies Coded Allergies: No Known Drug Allergies (Unverified , 08/21/10) Patient Home Medication List Home Medication List Reviewed: Yes Acetaminophen (Acetaminophen) 500 Mg Tablet, 1,000 MG PO Q6H PRN for PAIN-MILD (1-4) OR TEMP>100 Prescribed by: JODIE CELIS on 04/05/22 1157 Hydrocodone Bit/Acetaminophen (HYDROcodone/APAP 5 MG/325 MG TAB) 1 Tab Tab, 1 EA PO Q4H PRN for PAIN-MODERATE (5-7) Prescribed by: JODIE CELIS on 04/05/22 1158 Ibuprofen (Ibuprofen) 800 Mg Tablet, 800 MG PO Q6H PRN for PAIN-MILD (1-4) OR TEMP>100 Prescribed by: JODIE CELIS on 04/05/22 1157 Lorazepam (Ativan) 2 Mg Tablet, 2 MG PO Q4H PRN for ANXIETY Prescribed by: JODIE CELIS on 04/05/22 1158 Past Svpcpfr-Blztny-Xibnlg Hx Patient Social History Smoking Status: Current Everyday Smoker Alcohol Use?: No Surgeries History of Surgeries: Yes Surgeries: Adenoidectomy, Coronary Stent, Tonsillectomy Respiratory History of Respiratory Disorde: No Cardiovascular History of Cardiac Disorders: Yes Cardiac Disorders: Coronary Artery Disease, Congenital Heart Disease, Heart Attack, High Cholesterol, Hypertension, Peripheral Vascular Neurological History of Neurological Disord: No Reproductive System : No Genitourinary History of Genitourinary Disor: Yes Genitourinary Disorders: Kidney Infection, Kidney Stones, UTI-Chronic Gastrointestinal History of Gastrointestinal Di: No Musculoskeletal History of Musculoskeletal Dis: Yes Musculoskeletal Disorders: Arthritis Endocrine History of Endocrine Disorders: Yes Endocrine Disorders: Diabetes, Non-Insulin dep HEENT History of HEENT Disorders: No Loss of Vision: Denies Hearing Impairment: Denies Family Medical History Significant Family History: Diabetes, Hypertension, Other Conditions/Hx (Denied premature cardiac deaths in her family) Review of Systems-General Constitutional: No fever; weakness; No weight gain, No weight loss EENTM: No mouth pain, No mouth swelling, No epistaxis Respiratory: No cough, No dyspnea on exertion, No hemoptysis Gastrointestinal: No abdominal pain; diarrhea; No melena, No nausea, No vomiting Genitourinary: No dysuria, No frequency, No hematuria Musculoskeletal: No back pain; joint pain, joint swelling Skin: No change in color, No dryness, No pruritus Psychiatric/Neurological: Denies Anxiety, Denies Depressed; Weakness, Other (poor balance) Physical Exam-General Problems Physical Exam General Appearance: no apparent distress, thin Eyes: Bilateral Eye PERRL, Bilateral Eye EOMI HEENT: pharynx normal; No scleral icterus (R), No scleral icterus (L) Neck: non-tender, supple Respiratory: chest non-tender, lungs clear, normal breath sounds, no respiratory distress, no accessory muscle use Cardiovascular: regular rate, rhythm, no murmur Gastrointestinal: normal bowel sounds, non tender, soft, no organomegaly, hernia (very small umbilical hernia) Rectal: deferred Back: no CVA tenderness, no vertebral tenderness Extremities: no pedal edema, no calf tenderness Neurologic/Psychiatric: recovery room nurse II-XII nml as tested, alert, oriented x 3 Skin: normal color, warm/dry; No jaundice Lymphatic: no adenopathy (neck, axilla or groin) Data Review Radiology Date of Exam:01/09/23 CT CHEST/ABDOMEN/PELVIS W PROCEDURE: CT chest, abdomen, and pelvis with contrast. TECHNIQUE: Multiple contiguous axial images were obtained through the chest, abdomen, and pelvis after the administration of intravenous contrast. Auto Exposure Controls were utilized during the CT exam to meet ALARA standards for radiation dose reduction. INDICATION: Sepsis with elevated liver function test. COMPARISON: 04/08/2022. FINDINGS: CT CHEST: Non rounded trachea. Linear areas of atelectasis are present in both lower lobes. No pneumonia or edema. No bronchiectasis or pulmonary fibrosis. No pleural effusion or pneumothorax. Thyroid is normal. No supraclavicular or axillary lymphadenopathy. No mediastinal or hilar lymphadenopathy. Heart is borderline enlarged without pericardial effusion. Normal caliber thoracic aorta has moderate calcifications. Coronary artery calcifications and/or stents are present. No worrisome focal osseous lesion. CT ABDOMEN AND PELVIS: No free intraperitoneal air or fluid. Liver has no focal abnormality. Cholelithiasis present with associated pericholecystic fluid. There is now mild intrahepatic and extrahepatic biliary duct dilatation. The common bile duct measures up to 11 mm and has abrupt truncation at the ampulla. Spleen and pancreas are normal. No feature of acute pancreatitis. No adrenal mass. Stable severe atrophy of the left kidney which demonstrates mild enhancement. A large stone on the left extrarenal pelvis may be due to chronic obstruction. Right kidney enhances normally. The partially calcified right adnexal mass is stable at 5.8 x 5.6 cm. No new adnexal mass. Uterus is normal. No pericolonic inflammatory change or bowel obstruction. Appendix is normal. Stomach is decompressed. Atherosclerotic aorta is normal in caliber. No worrisome focal osseous lesion. IMPRESSION: 1. Imaging features are highly suspicious for acute cholecystitis. Additionally, there is dilation of the common bile duct and intrahepatic bile ducts which may be due to choledocholithiasis. Consider MRCP or ERCP for further evaluation. 2. No pneumonia. 3. Unchanged partially calcified right adnexal mass. Dictated by: Dictated on workstation # [id number] Dict: 01/09/231899 Trans: 01/09/231926 [facility] [id number] Interpreted by: ANNITA SANCHEZ MD Electronically signed by: ANNITA SANCHEZ MD 01/09/231926 Assessment/Plan Assessment/Plan Assessment/Plan Cholelithiasis/Cholecystitis and possible Choledochalithiasis with obstruction Elevated liver enzymes Direct hyperbilirubinemia Hypomagnesemia Diarrhea Elevated troponin (0.063 on 01/09) Elevated BNP (155.8 on 01/09) CAD - 3 stents placed in 2009; CABG was recommended by cardiology based on catherization in 2021 HF with EF 30-35% - per 2021 echocardiogram IDDM I saw some EKG changes (unsure timeframe) and an elevated Troponin. I reordered another Troponin, which came back higher than the previous number. I had a talk with her regarding the CT findings, the possibility of surgery and/or HIDA vs. MRCP. At first she refused everything, stating she did not want surgery; but, then was ok with checking to see if she had an obstructing stone. I went over the CT myself and went to talk with Dr. Harley (radiology) to discuss best test to order; will order MRCP. I also discussed her case with the ED provider and the Hospitalist. Will wait to get the results from MRCP and then we can discuss need for ERCP or even surgery. Supervisory-Addendum Brief Verification & Attestation Participated in pt care: history, MDM, physical Personally performed: exam, history, MDM, supervision of care Care discussed with: Medical Student Procedures: n/a Verification and Attestation of Medical Student E/M Service A medical student performed and documented this service. I then reviewed and nadege ified all information documented by the medical student and made modifications to such information, when appropriate. I personally performed a physical exam, medical decision making and then discussed any differences between the notes and made revisions as necessary to create one note. Esperanza Fragoso , 01/10/23 , 14:21 LEROY CHAVEZ Jan 10, 2023 09:12 ESPERANZA FRAGOSO DO Jan 10, 2023 14:07
[2023-01-10] MEDS: NOREPINEPHRINE 8 MG/250 ML 250 ML IV SCH ×2 (09:44→23:58)
[2023-01-10] MEDS: DOCUSATE SODIUM 100 MG (COLACE) CAP PO SCH ×2 (09:45→20:53)
[2023-01-10] MEDS: PANTOPRAZOLE 40 MG (PROTONIX) VIAL IV SCH (09:45)
[2023-01-10] MEDS: SENNOSIDES 8.6 MG (SENOKOT) TAB PO SCH ×2 (09:46→20:53)
[2023-01-10] MEDS: RT-ALBUTEROL HFA 8.5 GM INHALER IH SCH ×4 (10:39→22:23)
[2023-01-10] MEDS: inSUlin ASPART (NovoLOG) 1 UNIT/0.01 ML (CHARGE PER UNIT) SC SCH ×3 (11:12→21:20)
[2023-01-10] MEDS: PIPERACILLIN SODIUM/TAZOBACTAM 4.5 GM in NS (IVPB) 100 ML IV SCH ×2 (11:25→19:46)
[2023-01-10] MEDS ORDERED: GUAI100L13 PO (15:07)
[2023-01-10] MEDS ORDERED: ACET-2267 PO ×2 (15:07)
[2023-01-10] MEDS ORDERED: POTA-51 PO (15:07)
[2023-01-10] MEDS ORDERED: PANT20TA18 PO (15:07)
[2023-01-10] MEDS ORDERED: BUME1TAB8 PO (15:07)
[2023-01-10] MEDS ORDERED: METF-397 PO (15:07)
[2023-01-10] MEDS ORDERED: LEVE500T6 PO (15:07)
[2023-01-10] MEDS ORDERED: GLIP5TAB13 PO (15:07)
[2023-01-10] MEDS ORDERED: ATOR80TA76 PO (15:07)
[2023-01-10] MEDS ORDERED: ALBU2.5V4 NEB (15:07)
[2023-01-10] MEDS ORDERED: CLOP75TA28 PO (15:07)
[2023-01-10] MEDS ORDERED: IBUP-1780 PO (15:07)
--- NOTE | 2023-01-10 15:14 | Diagnostic Imaging Report ---
EXAMINATION: MRI of the abdomen without contrast. MRCP TECHNIQUE: Multiplanar, multisequence MR images of the abdomen were obtained without intravenous contrast including 3D MIP MRCP images generated at an independent workstation. HISTORY: Cholelithiasis and biliary ductal dilatation. COMPARISON: 01/09/2023 FINDINGS: Liver: Normal in signal and morphology. Gallbladder and Bile Ducts: There is gallbladder wall thickening and surrounding edema with layering stones present. There is mild intrahepatic and extrahepatic biliary ductal dilatation. There appears to be stones within the distal common bile duct measuring up to 1.0 cm. Pancreas: Normal in signal and morphology. No duct dilation. Spleen: Normal. Adrenal glands: Normal in configuration. No nodule. Kidneys: There is asymmetric left renal atrophy. No hydronephrosis. Lymph Nodes: No abdominal lymphadenopathy. Other: There is trace ascites. IMPRESSION: 1. Intrahepatic and extrahepatic biliary ductal dilatation with multiple stones seen within the distal common bile duct. 2. Cholelithiasis with gallbladder wall thickening and surrounding edema which can be seen with acute cholecystitis. Dictated by: Dictated on workstation # [id number]
--- NOTE | 2023-01-10 16:45 | CONSULTATION REPORT ---
DATE OF SERVICE: 01/10/2023 INPATIENT CONSULTATION REPORT CHIEF COMPLAINT: Positive troponin. HISTORY OF PRESENT ILLNESS: The patient is a 62-year-old female with a history of diabetes, CHF with EF as low as 25-30%, CAD, status post PCI x3 to the LAD and left circumflex in the setting of STEMI, hypertension, peripheral vascular disease, hypothyroidism, pelvic mass, COPD, depression, anxiety, who presents for evaluation of weakness and low blood pressures. Per the patient, she was doing well until the day of admission, at which point she became extremely weak and lethargic. She stated that it was difficult for her to even be able to stand up. In that setting, the skilled nursing staff became concerned and called EMS. She was evaluated and ultimately brought in for treatment. She was found to have blood pressures in the 80s. She denies any URI symptoms, abdominal pain, nausea or vomiting. No chest pain, shortness of breath, presyncope or syncope. No PND, no orthopnea. The nursing staff noted that her urine was dark and her blood pressures would go from 99-80 with positional changes. She was started on Zosyn. Urine culture was sent, which was negative. Blood cultures have now come back growing gram-negative rods consistent with E. coli. As part of the workup, she was found to have troponins that have up trended from 0.06 to 0.20. When investigating her history, it does appear that she has a history of heart failure with an ejection fraction as low as 25-30%. In addition, back in 12/2021, she was sent to for multivessel severe CAD and consideration of CABG. Per the patient, she was told she was too high risk. They were concerned she would have a stroke and as a result turned her down. She states that she has not had any additional PCI since that time. REVIEW OF SYSTEMS: All systems were reviewed and are negative except for what has been described in HPI. PAST MEDICAL HISTORY: prison resident, diabetes, CHF with an EF as well as 25-30%, CAD, status post WV with PCI x3 to the LAD and left circumflex, hypertension, peripheral vascular disease, nephrolithiasis, hypothyroidism, pelvic mass, COPD, seizure disorder. MEDICATIONS: In the skilled nursing include atorvastatin 80 mg p.o. each day at bedtime. Bumex 1 mg every day, glipizide 0.5 mg q.a.m., Plavix 75 mg p.o. daily, potassium chloride 20 mEq p.o. daily, Protonix 20 mg p.o. daily, Tylenol 1000 mg p.o. b.i.d., Keppra 500 mg p.o. q..12 hours, metformin 500 mg p.o. b.i.d., guaifenesin liquid 5 mL q. 4 hours p.r.n. cough. ALLERGIES: NO KNOWN DRUG ALLERGIES. SOCIAL HISTORY: She smoked up to 1-1/2 packs per day and has done so for approximately 40 years. She currently smokes at least up to a half a pack a day. She denies alcohol or illicit drug use. FAMILY HISTORY: Reviewed and is noncontributory. PHYSICAL EXAMINATION: VITAL SIGNS: T-max 37.0, heart rate 70s-90s, respiratory rate 8-23, blood pressure 100-140/50-70, satting greater than 93% on room air. GENERAL: She is in no acute distress. She is resting comfortably in her bed. NECK: Soft and supple. No cervical lymphadenopathy or thyromegaly. LUNGS: Diminished in the bilateral lung ma, but otherwise clear to auscultation. No wheezing, rales or rhonchi. HEART: Regular rate and rhythm, normal S1, S2. No gallops or rubs. She does have a soft systolic murmur. EXTREMITIES: Warm and well perfused. She has no cyanosis, clubbing or edema. ABDOMEN: Positive bowel sounds, soft, nontender, nondistended. No Huerta sign appreciated. EXTREMITIES: Warm and well perfused. She has no cyanosis or clubbing. She does have trace edema in the bilateral lower extremities. LABORATORY DATA: Significant for white blood cell count of 4.2, hematocrit of 40, platelets of 179. Sodium 140, potassium 3.7, chloride 101, bicarbonate 23, BUN 31, creatinine is 1.2. Lactate is 2.96. Troponin I is 0.06 and it has gone up to 0.20. BNP is 156. Ammonia is 31. Magnesium is low at 1.0. Amylase is 54, lipase is 32. Total bilirubin is elevated at 3.4, AST is 1762, ALT is 1082, alkaline phosphatase is 575. INR is 1.0. Chest x-ray is negative for any acute intrathoracic process. Abdominal CT shows question of acute cholecystitis and a calcified right adnexal mass, which was demonstrated prior. She had an MRCP, which demonstrated intrahepatic and extrahepatic biliary ductal dilatation with multiple stones seen within the distal common bile duct. Cholelithiasis and gallbladder wall thickening and surrounding edema, which can be seen with acute cholecystitis. EKG on 01/09/2023 demonstrates sinus tachycardia at a heart rate of 105 beats per minute, anterior Q-waves consistent with old infarct. Nonspecific T-wave changes in the diffuse leads, inferior Q-waves also noted. QTc interval of 569. ASSESSMENT AND PLAN: The patient is a 62-year-old female with the above-mentioned medical problems who presents for weakness, found to have sepsis with E. coli bacteremia of unclear source. 1. Sepsis with Escherichia coli bacteremia. Continue with Zosyn for now. Sensitivities are currently pending. Support blood pressure as needed, would prefer an agent such as Levophed or dopamine over Rodriguez-Synephrine given her degree of systolic dysfunction. 2. CHF. At this point in time, she appears to be reasonably well compensated. BNP is normal at 156. We will hold on her Bumex for now and simply continue to monitor. We will obtain a followup echocardiogram to compare to prior images. 3. CAD, status post WV and PCI in the past with known 3-vessel severe CAD. She states she wsa referred to [facility] for CABG but was turned down by the surgeons-"said that my risk of stroke was too high" per patient report. She is on a statin and Plavix. She does not appear to be on aspirin or any other albert agents, so at this point in time, we will hold on the statin given the degree of transaminitis. We will consider restarting her Plavix, but I will defer to hospitalist because I am not quite sure how they want to address her abdominal concerns at this point in time. Once that has been flushed out, I would recommend her restarting on aspirin, Plavix and low dose beta liang, Toprol-XL 12.5. We then could consider reinitiating her statins pending improvement in her LFTs. 4. Rrn-UM-nidqvfyer myocardial infarction, likely type 2 NSTEMI in the setting of E. coli bacteremia and associated sepsis. We will simply continue to monitor changes as noted above. 5. Hypertension. Blood pressures are stable at 100s-140s. We will simply continue to monitor. DISPOSITION: We will continue to follow along. Suspect her troponin leak is secondary to type 2 non-ST elevation myocardial infarction in the setting of E. coli sepsis. Once she is through this window and her concern for hepatobiliary issues have been fully evaluated, we will move forward with reinitiating a cardiotonic regimen. In the meantime, we will obtain an echocardiogram as well. More than likely, we will have her follow up with Dr. Mlaagon as an outpatient to determine whether she should be considered for multivessel PCI at an outside facility. Thank you very much for allowing me to participate in her care. Job ID: [id number] DocumentID: [id number] Dictated Date: 01/10/2023 16:06:48 Garment Worker Date: 01/10/2023 16:42:00 Dictated By: FLAKO FABIAN MD MTDD
--- NOTE | 2023-01-10 17:47 | History & Physical ---
HPI History of Present Illness: 62 yo from local [place] that was found to have increasing weakness and low blood pressures. States that she started feeling weak yesterday and denies any pain. She did have one loose stool prior to arrival at hospital. States that she has not had any sick contacts. She has been eating regularly and taking her medication. Denies any N/V. Source: patient, RN/MD, prison records Exam Limitations: no limitations Date seen by provider: Jan 10, 2023 Time Seen by Provider: 09:15 Attending Physician [place] PCP Admitting Physician: Nargis Alex DO Attending Physician: Jodie Celis MD Consult Date of Admission Jan 10, 2023 at 06:14 Home Medications Home Medications Reviewed patient Home Medication Reconciliation performed by pharmacy medication reconciliations cook chill technician and/or nursing. Patients Allergies have been reviewed. Allergies Coded Allergies: No Known Drug Allergies (Unverified , 08/21/10) QTK-Ypjemy-Kaefbd Hx Patient Social History Smoking Status: Current Everyday Smoker Alcohol Use?: No Tobacco type used: Cigarettes Have you traveled recently?: No Immunizations Up To Date Tetanus Booster (TDap): Unknown Influenza Vaccine Up-to-Date: Yes; Up-to-Date First/Initial COVID19 Vaccinat: 2020 Second COVID19 Vaccination Enrique: 2020 Past Medical History CAD s/p stents HTN Family Medical History Significant Family History: Diabetes, Hypertension, Other Conditions/Hx (Denied premature cardiac deaths in her family) Other Significan Family Hx: NON-COMPLIANCE IN ALL ASPECTS OF CARE--HAD NOT SEEN A DR IN 10 YEARS, QUIT TAKING ALL MEDICATIONS > 10 YEARS AGO ADMITTED 01/16/22 FOR MULTIPLE ISSUES AND THEN TRANSFERRED TO FOR NSTEMI WITH MULTIVESSEL DISEASE OF CORONARIES, CAROTID AND PERIPHERAL ARTERY DISEASE TO LEGS. - PER A DICTATED NOTE FROM DR. FRAGOSO ON 02/23/22: FINDINGS OF A PELVIC MASS WAS DISCOVERED IN HER EVALUATION AT AND ANY INTERVENTION FOR HER VASCULAR ISSUES WAS POSTPONED UNTIL THE PELVIC MASS HAD BEEN EVALUATED AND PT WAS REFERRED TO DR. FRAGOSO, GENERAL SURGEON, LOCALLY. COLONOSCOPY DONE AT DID NOT FIND ANY COLON ABNORMALITIES. SOCIAL HISTORY: -SMOKES 1 1/2 PPD -ETOH--DENIES USE -DRUGS DENIES USE PAST SURGICAL HISTORY: -TONSILLECTOMY / ADENOIDECTOMY -10/22/10--CARDIAC CATH WHEN PT HAD DC -DONE BY DR. MAYES-ANGIOPLASTY + STENT TO LAD; EF 25-30% -09/01/2010--CARDIAC CATH BY DR. MAYES--STENTS X 2 TO LEFT CIRCUMFLEX; CARDIAC CATH 01/16/[address] OSORIO: IMPRESSION: 1. Markedly elevated left ventricular end-diastolic pressure. 2. Severe [place] three-vessel coronary artery disease as outlined above that did involve a bifurcation lesion of the distal left main coronary artery. 3. The patient is known to have moderate left ventricular systolic dysfunction with an estimated ejection fraction of 35-40% by echocardiogram performed prior to this procedure. There was no significant valvular heart disease identified on this echocardiogram. 4. The patient has significant disease of the right subclavian artery and branches as noted above. 5. The patient appears to have occlusion of the right superficial femoral artery as outlined above. 6. The patient will need a cardiothoracic surgical consultation for consideration of coronary artery bypass surgery. I will reach out to [facility] in this regard Review of Systems ([facility]) Constitutional: No chills, No fever; malaise, weakness EENTM: no symptoms reported; No mouth pain, No nose congestion, No nose pain Respiratory: no symptoms reported; No cough, No dyspnea on exertion, No short of breath Cardiovascular: no symptoms reported; No chest pain, No edema, No palpitations Gastrointestinal: No abdominal pain, No constipation; diarrhea; No nausea, No vomiting Genitourinary: no symptoms reported; No dysuria, No frequency Musculoskeletal: no symptoms reported; No back pain, No joint pain, No muscle pain Skin: no symptoms reported Psychiatric/Neurological: Weakness Reviewed Test Results Reviewed Test Results Lab Laboratory Tests Test 01/09/23 18:40 01/09/23 21:16 01/09/23 23:12 01/10/23 10:27 Range/Units Erythrocyte Sedimentation Rate 33 H 0-30 MM/HR Ammonia 31 11-32 UMOL/L C-Reactive Protein High Sensitivity 3.63 H 0.00-0.50 MG/DL Amylase Level 54 25-125 U/L Lipase 32 8-78 U/L Acetaminophen Level < 10 L 10-30 UG/ML Serum Alcohol < 10 <10 MG/DL Lactic Acid Level 2.23 *H 1.13 0.50-2.00 MMOL/L Glucometer 79 70-110 MG/DL Test 3/13/23 12:00 01/10/23 16:09 Range/Units Troponin I 0.200 H <0.028 NG/ML Glucometer 164 H 70-110 MG/DL Radiology Date of Exam:01/09/23 CT CHEST/ABDOMEN/PELVIS W PROCEDURE: CT chest, abdomen, and pelvis with contrast. TECHNIQUE: Multiple contiguous axial images were obtained through the chest, abdomen, and pelvis after the administration of intravenous contrast. Auto Exposure Controls were utilized during the CT exam to meet ALARA standards for radiation dose reduction. INDICATION: Sepsis with elevated liver function test. COMPARISON: 04/08/2022. FINDINGS: CT CHEST: Non rounded trachea. Linear areas of atelectasis are present in both lower lobes. No pneumonia or edema. No bronchiectasis or pulmonary fibrosis. No pleural effusion or pneumothorax. Thyroid is normal. No supraclavicular or axillary lymphadenopathy. No mediastinal or hilar lymphadenopathy. Heart is borderline enlarged without pericardial effusion. Normal caliber thoracic aorta has moderate calcifications. Coronary artery calcifications and/or stents are present. No worrisome focal osseous lesion. CT ABDOMEN AND PELVIS: No free intraperitoneal air or fluid. Liver has no focal abnormality. Cholelithiasis present with associated pericholecystic fluid. There is now mild intrahepatic and extrahepatic biliary duct dilatation. The common bile duct measures up to 11 mm and has abrupt truncation at the ampulla. Spleen and pancreas are normal. No feature of acute pancreatitis. No adrenal mass. Stable severe atrophy of the left kidney which demonstrates mild enhancement. A large stone on the left extrarenal pelvis may be due to chronic obstruction. Right kidney enhances normally. The partially calcified right adnexal mass is stable at 5.8 x 5.6 cm. No new adnexal mass. Uterus is normal. No pericolonic inflammatory change or bowel obstruction. Appendix is normal. Stomach is decompressed. Atherosclerotic aorta is normal in caliber. No worrisome focal osseous lesion. IMPRESSION: 1. Imaging features are highly suspicious for acute cholecystitis. Additionally, there is dilation of the common bile duct and intrahepatic bile ducts which may be due to choledocholithiasis. Consider MRCP or ERCP for further evaluation. 2. No pneumonia. 3. Unchanged partially calcified right adnexal mass. Dictated by: Dictated on workstation # [id number] Dict: 01/09/231899 Trans: 01/09/231926 [facility] [id number] Interpreted by: ANNITA SANCHEZ MD Electronically signed by: ANNITA SANCHEZ MD 01/09/231926 Physical Exam-([facility]) Physical Exam Vital Signs VS - Last 72 Hours, by Label 01/09/23 01/10/23 01/10/23 01/10/23 17:09 06:13 06:19 06:19 Temp 37.0 36.7 36.8 Pulse 111 87 82 86 Resp 18 16 18 27 B/P (MAP) 96/63 (74) 109/58 122/70 (84) 122/70 (84) Pulse Ox 97 93 94 94 O2 Delivery Room Air Room Air Room Air Room Air 01/10/23 01/10/23 01/10/23 01/10/23 06:21 06:30 06:30 06:45 Pulse 86 85 85 82 Resp 30 20 18 B/P (MAP) 123/67 (81) 123/67 (81) 121/70 (79) Pulse Ox 94 93 95 O2 Delivery Room Air 01/10/23 01/10/23 01/10/23 01/10/23 06:45 07:00 07:00 07:09 Pulse 83 81 82 79 Resp 11 17 17 B/P (MAP) 121/70 (79) 125/70 (86) 125/70 (88) Pulse Ox 94 95 96 O2 Delivery Room Air Room Air 01/10/23 01/10/23 01/10/23 01/10/23 07:15 07:15 07:18 07:54 Temp 36.8 Pulse 81 81 81 Resp 11 11 B/P (MAP) 124/67 (86) 125/72 (87) Pulse Ox 95 95 95 01/10/23 01/10/23 01/10/23 01/10/23 08:00 08:00 08:00 08:00 Temp 36.8 Pulse 79 79 Resp 8 8 B/P (MAP) 111/67 (82) 111/67 (75) Pulse Ox 95 95 95 O2 Delivery Room Air Room Air Room Air 01/10/23 01/10/23 01/10/23 01/10/23 08:30 09:00 09:00 09:30 Pulse 80 79 79 80 Resp 9 15 15 14 B/P (MAP) 124/75 (87) 109/65 (78) 109/65 (80) 122/75 (91) Pulse Ox 95 93 93 93 O2 Delivery Room Air Room Air Room Air 01/10/23 01/10/23 01/10/23 01/10/23 09:44 10:00 10:00 10:30 Pulse 78 76 76 77 Resp 18 23 16 B/P (MAP) 122/75 127/74 (91) 127/74 (91) 141/78 (96) Pulse Ox 93 94 93 O2 Delivery Room Air Room Air Room Air 01/10/23 01/10/23 01/10/23 01/10/23 10:30 10:39 11:00 11:30 Temp 36.8 Pulse 77 93 87 Resp 16 20 22 B/P (MAP) 141/78 (99) 109/66 (80) 104/61 (69) Pulse Ox 93 94 97 97 O2 Delivery Room Air Room Air Room Air Room Air 01/10/23 01/10/23 01/10/23 01/10/23 11:30 11:42 12:00 12:00 Temp 36.6 Pulse 87 85 Resp 22 12 B/P (MAP) 104/61 (69) 104/63 (77) Pulse Ox 97 95 95 O2 Delivery Room Air Room Air Room Air 01/10/23 01/10/23 01/10/23 01/10/23 12:07 12:30 13:00 13:00 Pulse 89 80 78 79 Resp 16 22 7 B/P (MAP) 108/65 (80) 109/70 (83) 109/70 (79) Pulse Ox 95 96 95 O2 Delivery Room Air Room Air Room Air 01/10/23 01/10/23 01/10/23 01/10/23 13:30 14:00 14:58 15:00 Pulse 78 81 82 Resp 23 19 9 B/P (MAP) 123/70 (86) 137/77 (97) Pulse Ox 95 96 95 95 O2 Delivery Room Air Room Air Room Air Room Air 01/10/23 01/10/23 15:55 16:00 Temp 36.6 Pulse Ox 98 O2 Delivery Room Air Capillary Refill : Less Than 3 Seconds General Appearance: WD/WN, no apparent distress, thin HEENT: PERRL/EOMI Neck: non-tender, full range of motion, supple Respiratory: chest non-tender, lungs clear, normal breath sounds, no respiratory distress, no accessory muscle use Cardiovascular: normal peripheral pulses, regular rate, rhythm, no edema, no murmur Gastrointestinal: non tender, soft; No distended, No guarding, No rebound, No tenderness Back: no CVA tenderness, no vertebral tenderness Extremities: no pedal edema, no calf tenderness, normal capillary refill Neurologic/Psychiatric: [place] II-XII nml as tested, alert, oriented x 3 Skin: normal color, warm/dry Lymphatic: no adenopathy Assessment/Plan Assessment/Plan Admission Status: Inpatient Order (span 2 midnights) Reason for Inpatient Admission: Needing ICU care and close monitoring (1) Severe sepsis Status: Acute Assessment & Plan: - HDS this AM, continue IV antibiotics and gentle hydration, blood cultures + Ecoli (2) Bacteremia due to Escherichia coli Status: Acute (3) NSTEMI (non-ST elevated myocardial infarction) Status: Acute Assessment & Plan: - Cardiology consulted, patient previously recommended to get bypass surgery but did not have it done, currently asymptomatic, Type 2 DC due to severe sepsis (4) Cholecystitis, acute with cholelithiasis Status: Acute Assessment & Plan: - Dr Fragoso consulted, appreciate recommendations (5) Hypomagnesemia Status: Acute Assessment & Plan: - Replace and repeat in AM (6) HFrEF (heart failure with reduced ejection fraction) Status: Chronic (7) CAD (coronary artery disease) Status: Chronic (8) HTN (hypertension) Status: Chronic Assessment & Plan: - hypotensive on admission, holding any BP meds Clinical Quality Measures DVT/VTE Risk/Contraindication: Contraindications-Pharm: Other *list below* Other: OR JDOIE CELIS MD Jan 10, 2023 17:47
[2023-01-11] VITALS (7 sets, daily range): BP systolic 92–125; BP diastolic 67–86
[2023-01-11] MEDS: NS IV 1000 ML 1,000 ML IV SCH ×3 (01:13→22:00)
[2023-01-11] MEDS: RT-ALBUTEROL HFA 8.5 GM INHALER IH SCH ×5 (01:53→22:44)
[2023-01-11] MEDS: PIPERACILLIN SODIUM/TAZOBACTAM 4.5 GM in NS (IVPB) 100 ML IV SCH ×3 (04:29→20:47)
[2023-01-11 04:50] LABS: BASOPHILS % (AUTO) 0 % (0-10); EOSINOPHILS # (AUTO) 0.1 10^3/uL (0.0-0.3); EOSINOPHILS % (AUTO) 2 % (0-10); HEMATOCRIT 32 % (35-52); HEMOGLOBIN 11.2 g/dL (11.5-16.0); LYMPHOCYTES # (AUTO) 0.3 10^3/uL (1.0-4.0); LYMPHOCYTES % (AUTO) 7 % (12-44); MEAN CORPUSCULAR HEMOGLOBIN 32 pg (25-34); MEAN CORPUSCULAR HGB CONC 35 g/dL (32-36); MEAN CORPUSCULAR VOLUME 92 fL (80-99); MEAN PLATELET VOLUME 10.9 fL (9.0-12.2); MONOCYTES # (AUTO) 0.2 10^3/uL (0.0-1.0); MONOCYTES % (AUTO) 5 % (0-12); NEUTROPHILS # (AUTO) 3.5 10^3/uL (1.8-7.8); NEUTROPHILS % (AUTO) 87 % (42-75); PLATELET COUNT 111 10^3/uL (130-400)
[2023-01-11 05:06] LABS: POTASSIUM 3.5 MMOL/L (3.6-5.0)
[2023-01-11 05:07] LABS: CALCIUM 8.4 MG/DL (8.5-10.1)
[2023-01-11 05:09] LABS: TOTAL PROTEIN 5.7 GM/DL (6.4-8.2)
[2023-01-11 05:12] LABS: CREATININE SERUM 0.75 MG/DL (0.60-1.30); PHOSPHORUS 2.6 MG/DL (2.3-4.7)
[2023-01-11] MEDS: inSUlin ASPART (NovoLOG) 1 UNIT/0.01 ML (CHARGE PER UNIT) SC SCH ×4 (05:12→20:52)
[2023-01-11 05:15] LABS: MAGNESIUM 1.8 MG/DL (1.6-2.4)
[2023-01-11] MEDS: MAGNESIUM 1 GM/100 ML IVPB 100 ML IV SCH ×6 (05:27→23:36)
[2023-01-11] MEDS: POTASSIUM CL 10MEQ/50ML IVPB 50 ML IV SCH ×9 (05:28→23:36)
[2023-01-11] MEDS: KCL 20 MEQ TAB (K-DUR) PO SCH (06:02)
[2023-01-11] MEDS ORDERED: CATHETER FLUSH 10 ML SYR IVP PRN (07:15)
--- NOTE | 2023-01-11 08:47 | Diagnostic Imaging Report ---
EXAMINATION: Chest 1 view HISTORY: Sepsis. Follow-up. COMPARISON: 01/09/2023. FINDINGS: New patchy opacities are seen throughout the majority of the right lung. Small amount of opacities are seen in the left lung base. No large pleural effusion or pneumothorax. Stable cardiac silhouette. IMPRESSION: 1. New opacities throughout the right lung, concerning for developing pneumonia. Asymmetric edema or atelectasis could also have this appearance. Recommend continued follow-up as indicated. Dictated by: Dictated on workstation # [id number]
--- NOTE | 2023-01-11 08:57 | Cardiology Progress Note ---
Subjective Date Seen by Provider: Jan 11, 2023 Time Seen by Provider: 08:00 Subjective/Events-last exam No acute events overnight. O2 req increased from RA to 4L O2, a bit tachypneic. +2.3L so far for hospital stay. States she is ready for surgery now. Focused Exam Lactate Level 01/09/23 17:45: Lactic Acid Level 2.96*H 01/09/23 21:16: Lactic Acid Level 2.23*H 01/09/23 23:12: Lactic Acid Level 1.13 Time of Focused Exam: 18:30 Objective-Cardiology Exam Last Set of Vital Signs Vital Signs 01/11/23 01/11/23 03:26 08:00 Temp 37.5 Pulse 97 Resp 28 B/P (MAP) 127/77 (94) Pulse Ox 92 O2 Delivery Nasal Cannula O2 Flow Rate 4.00 I&O Intake and Output 01/11/23 00:00 Intake Total 2700 ml Output Total 2025 ml Balance 675 ml Intake Oral 600 ml IV Total 2100 ml Output Urine Total 2025 ml Daily Weight Change No Other physical findings GENERAL: She is in no acute distress. She is resting comfortably in her bed. NECK: Soft and supple. No cervical lymphadenopathy or thyromegaly. LUNGS: Diminished in the bilateral lung ma, but otherwise clear to auscultation. No wheezing, rales or rhonchi. HEART: Regular rate and rhythm, normal S1, S2. No gallops or rubs. She does have a soft systolic murmur. EXTREMITIES: Warm and well perfused. She has no cyanosis, clubbing or edema. ABDOMEN: Positive bowel sounds, soft, nontender, nondistended. No Huerta sign appreciated. EXTREMITIES: Warm and well perfused. She has no cyanosis or clubbing. She does have trace edema in the bilateral lower extremities. Results Lab Laboratory Tests 01/11/23 04:41 A/P-Cardiology Assessment/Plan 62F with the above-mentioned medical problems who presents for weakness, found to have sepsis with E. coli bacteremia of unclear source. ## Increased oxygen requirement - Bumex IV QD - CXR today ## Sepsis with Escherichia coli bacteremia. Likely gall bladder source. - Continue with Zosyn; sensitivites pending - Support blood pressure as needed (favor Levophed or dopamine) ## Ischemic CM: with fluid administrations, pt a bit more tachypneic today. - f/u TTE - Bumex 1IV QD - implement heart failure regimen post surgery ## CAD, status post [place] and PCI in the past with known 3-vessel severe CAD, surgical turn down. - cont plavix - look to start aspirin, beta liang, Toprol XL 12.5 once potential surgical course is better defined. ## ? Cholecystitis- per the patient, she was offered surgery (not the best historian) - LFTs downtrending - Cont Zosyn ## [id number] myocardial infarction, likely type 2 NSTEMI in the setting of E. coli bacteremia and associated sepsis. - cont to monitor - f/u Tn this AM ## Hypertension. Blood pressures 80s-140s. - continue to monitor. ## DISPOSITION: - we will have her follow up with Dr. Malagon as an outpatient to determine whether she should be considered for multivessel PCI at an outside facility. FLAKO FABIAN MD Jan 11, 2023 08:57
[2023-01-11] MEDS: CLOPIDOGREL 75 MG (PLAVIX) TABLET PO SCH ×2 (09:40→09:44)
[2023-01-11] MEDS: DOCUSATE SODIUM 100 MG (COLACE) CAP PO SCH ×2 (09:44→20:52)
[2023-01-11] MEDS: SENNOSIDES 8.6 MG (SENOKOT) TAB PO SCH ×2 (09:44→20:52)
--- NOTE | 2023-01-11 10:14 | Progress Note - Surgery ---
Subjective Time Seen by a Provider: 09:37 Subjective/Events-last exam Pt seen and examined, laying in bed actually getting Echo. She states no new changes and now is ready for surgery. She appears to be breathing a little bit more heavily and does admit to some SOB. Review of Systems General: Fatigue, Malaise Pulmonary: Dyspnea; No Cough Cardiovascular: No: Chest Pain, Palpitations Gastrointestinal: Abdominal Pain (very minimal); No: Nausea, Vomiting Genitourinary: No Dysuria, No Frequency Focused Exam Lactate Level 01/09/23 17:45: Lactic Acid Level 2.96*H 01/09/23 21:16: Lactic Acid Level 2.23*H 01/09/23 23:12: Lactic Acid Level 1.13 Time of Focused Exam: 18:30 Objective Exam Vital Signs Date Time Temp Pulse Resp B/P (MAP) Pulse Ox O2 Delivery O2 Flow Rate FiO2 01/11/23 09:43 Nasal Cannula 6.00 01/11/23 09:00 94 38 125/65 (85) 90 Nasal Cannula 4.00 01/11/23 08:00 97 28 127/77 (94) 92 Nasal Cannula 4.00 01/11/23 07:34 99 01/11/23 07:00 94 112/62 (79) 95 Nasal Cannula 4.00 01/11/23 06:47 93 Nasal Cannula 4.00 01/11/23 06:00 86 120/66 (84) 92 Nasal Cannula 4.00 01/11/23 05:00 87 116/96 (97) 92 Nasal Cannula 4.00 01/11/23 04:00 89 122/70 (86) 91 Nasal Cannula 4.00 01/11/23 04:00 97 Nasal Cannula 4.00 01/11/23 03:26 37.5 01/11/23 03:00 95 129/75 (91) 92 Nasal Cannula 4.00 01/11/23 03:00 Nasal Cannula 4.00 01/11/23 02:44 92 88 Nasal Cannula 3.00 01/11/23 02:15 90 94 Nasal Cannula 2.00 01/11/23 02:00 89 146/73 (97) 93 Room Air 01/11/23 01:53 91 Room Air 01/11/23 01:00 72 01/11/23 01:00 72 124/69 (86) 92 Room Air 01/11/23 00:00 73 111/60 (75) 93 Room Air 01/10/23 23:59 97 Nasal Cannula 2.00 01/10/23 23:54 72 121/60 (80) 94 01/10/23 23:46 36.5 01/10/23 23:45 73 81/55 (65) 94 01/10/23 23:30 71 110/59 (77) 93 01/10/23 23:15 68 100/62 (72) 91 01/10/23 23:00 76 117/67 (81) 96 Room Air 01/10/23 22:45 83 121/63 (80) 92 01/10/23 22:30 74 113/62 (80) 93 01/10/23 22:23 94 Room Air 01/10/23 22:15 74 111/64 (78) 93 01/10/23 22:00 75 112/64 (80) 92 Room Air 01/10/23 21:45 77 106/62 (75) 94 01/10/23 21:30 78 104/60 (74) 93 01/10/23 21:15 80 118/65 (79) 95 01/10/23 21:00 81 91/59 (68) 95 Room Air 01/10/23 20:45 81 92/50 (65) 96 01/10/23 20:30 85 100/64 (74) 96 01/10/23 20:15 83 89/52 (63) 96 01/10/23 20:00 36.5 Room Air 01/10/23 20:00 85 88/51 (61) 97 Room Air 01/10/23 20:00 97 Room Air 01/10/23 19:45 88 87/55 (62) 98 01/10/23 19:30 90 100/60 (72) 98 01/10/23 19:15 91 97/53 (65) 94 01/10/23 19:00 90 01/10/23 19:00 90 119/69 (81) 97 Room Air 01/10/23 18:38 98 Room Air 01/10/23 18:37 82 114/72 (86) 99 Room Air 01/10/23 18:00 81 116/70 (85) 97 Room Air 01/10/23 17:00 80 112/67 (82) 98 Room Air 01/10/23 16:00 98 Room Air 01/10/23 15:55 36.6 01/10/23 15:00 82 9 95 Room Air 01/10/23 14:58 95 Room Air 01/10/23 14:00 81 19 137/77 (97) 96 Room Air 01/10/23 13:30 78 23 123/70 (86) 95 Room Air 01/10/23 13:00 79 7 109/70 (79) 95 Room Air 01/10/23 13:00 78 22 109/70 (83) 96 Room Air 01/10/23 12:30 80 16 108/65 (80) 95 Room Air 01/10/23 12:07 89 01/10/23 12:00 85 12 104/63 (77) 95 Room Air 01/10/23 12:00 95 Room Air 01/10/23 11:42 36.6 01/10/23 11:30 87 22 104/61 (69) 97 Room Air 01/10/23 11:30 87 22 104/61 (69) 97 Room Air 01/10/23 11:00 93 20 109/66 (80) 97 Room Air 01/10/23 10:39 94 Room Air 01/10/23 10:30 36.8 77 16 141/78 (99) 93 Room Air 01/10/23 10:30 77 16 141/78 (96) 93 Room Air I & O 01/11/23 07:00 Intake Total 600 ml Output Total 1150 ml Balance -550 ml Capillary Refill : Less Than 3 Seconds General Appearance: Chronically ill, Thin HEENT: PERRL/EOMI Respiratory: Normal Breath Sounds, No Accessory Muscle Use, No Respiratory Distress, Decreased Breath Sounds (at bases) Cardiovascular: Regular Rate, Rhythm, No Murmur Gastrointestinal: non tender, soft; No distended, No guarding; hernia (small umbilical) Extremity: No Calf Tenderness, No Pedal Edema Neurologic/Psychiatric: Alert, Oriented x3, Depressed Affect Skin: Normal Color, Warm/Dry Results Lab Laboratory Tests 01/10/23 10:27: Glucometer 79 01/10/23 12:00: Troponin I 0.200H 01/10/23 16:09: Glucometer 164H 01/10/23 21:11: Glucometer 310H 01/11/23 04:41: White Blood Count 4.0L, Red Blood Count 3.49L, Hemoglobin 11.2L, Hematocrit 32L, Mean Corpuscular Volume 92, Mean Corpuscular Hemoglobin 32, Mean Corpuscular Hemoglobin Concent 35, Red Cell Distribution Width 12.9, Platelet Count 111L, Mean Platelet Volume 10.9, Immature Granulocyte % (Auto) 1, Neutrophils (%) (Auto) 87H, Lymphocytes (%) (Auto) 7L, Monocytes (%) (Auto) 5, Eosinophils (%) (Auto) 2, Basophils (%) (Auto) 0, Neutrophils # (Auto) 3.5, Lymphocytes # (Auto) 0.3L, Monocytes # (Auto) 0.2, Eosinophils # (Auto) 0.1, Basophils # (Auto) 0.0, Immature Granulocyte # (Auto) 0.0, Sodium Level 137, Potassium Level 3.5L, Chloride Level 109H, Carbon Dioxide Level 18L, Anion Gap 10, Blood Urea Nitrogen 16, Creatinine 0.75, Estimat Glomerular Filtration Rate 91, BUN/Creatinine Ratio 21, Glucose Level 177H, Calcium Level 8.4L, Corrected Calcium 9.2, Phosphorus Level 2.6, Magnesium Level 1.8, Total Bilirubin 2.0H, Aspartate Amino Transf (AST/SGOT) 252H, Alanine Aminotransferase (ALT/SGPT) 420H, Alkaline Phosphatase 317H, Troponin I 0.118H, Total Protein 5.7L, Albumin 3.0L 01/11/23 05:20: Glucometer 163H Microbiology 01/10/23 MRSA Screen - Final, Complete MRSA not isolated 01/09/23 Blood Culture - Preliminary, Resulted Escherichia coli See Comments Assessment/Plan Assessment/Plan Assessment/Plan Cholelithiasis/Cholecystitis with confirmed Choledochalithiasis by MRI not complete obstruction Elevated liver enzymes - slightly improved compared to yesterday Direct hyperbilirubinemia Hypomagnesemia Diarrhea Elevated troponin (0.063 on 01/09, then 0.2 yesterday and 0.118 today) CAD - 3 stents placed in 2009; CABG was recommended by cardiology based on catherization in 2021 HF with EF 30-35% - per 2021 echocardiogram IDDM Pt has Choledochalithiasis and Cholelithiasis, she needs her gallbladder removed and may need an ERCP. She changed her mind last night, decided she did want to go through with surgery. I spoke with the Pulp Drier Firer today and he thinks after she gets a does of Bumex, she can go to surgery. I talked to patient about risks and complications; not limited to pain, bleeding, infection, scar, damage to bowel or bile duct and need for further procedure. I also told her she is at moderate to high risk for cardiac complication and even . All questions answered to her satisfaction and will go to the OR today for Lap timmy with IOC, consent ordered. Clinical Quality Measures DVT/VTE Risk/Contraindication: Contraindications-Pharm: Other *list below* Other: OR ESPERANZA FRAGOSO DO Jan 11, 2023 10:13
[2023-01-11] MEDS ORDERED: BUMETANIDE 1 MG/4 ML (BUMEX) VIAL IV ONE (10:15)
[2023-01-11] MEDS: PANTOPRAZOLE 40 MG (PROTONIX) VIAL IV SCH (10:17)
--- NOTE | 2023-01-11 10:52 | Tele-ICU Progress Note ---
Subjective Date Seen by a Provider: Jan 11, 2023 Time Seen by a Provider: 10:52 Subjective/Events-last exam (Tele-ICU Physician , Progress Note ) Service provided via interactive audio and video telecommunications E-CARE system to a patient admitted to ICU bed in [facility]. Patient is seen today due to persistent need of ICU care Available chart/ vitals / labs / Images reviewed Video assessment done using teleICU camera, rest of exam as per RN Discussed with RN Events overnight : Afebrile hemodynamically stable Respiratory - I/O = Drips: Pressors- no Hospital course: (01/09) 62F Admitted w/ weakness, dehydration, acute cholecystitis w/cholelithiasis, cholangitis. Hypotensive in ER - sepsis protocol initiated (01/10) MRCP shows multiple stones w/i distal CBD and cholelitiasis with GB wall thickening and edema. 01/11- OR A/P acute cholecystitis w/cholelithiasis, cholangitis - Zosyn 01/09 --> -(01/10) MRCP shows multiple stones w/i distal CBD and cholelitiasis with GB wall thickening and edema. planned for OR Hypotension / Sepsis with Escherichia coli bacteremia due to above - sepsis protocol initiated, responded to fluid ,not on pressors now - cont abx RIGHT PNA ( new 01/11 , CTchest 01/09 - right lung is cleear ) -= cont zosyn Hypoxia , WORSENING 01/11 - with COPD and PNA - was given bumex x1 01/11 ICM with known 3-vessel severe CAD - as per cards - Thrombocytopenia 111 01/11 ( not on heparins) - on plavix ( on hold for sx) DM II - ISS Seizure dz - cont Keppra IV Lines : periph , (Central Line Necessity Reviewed) Lang: 01/10 OG: Nutrition: npo Analgesia: Anxiety/ delirium VTE Prophylaxis: scd Stress Ulcer Prophylaxis: na Plans in collaboration with bedside consultants and IM MDs. Discussed with RN to reach out if any questions or concerns Case and care discussed with the multidisciplinary (MD, DORYS, RN, PharmD, Nutrition and Respiratory Therapy) ICU service earlier on rounds. A total of 31 minutes of critical care time was devoted to this patient today, required to treat and/or prevent further deterioration of critical care condition ( as above ) . I am remotely monitoring this patient from another state. I am unable to do the bedside exam, and history/physical and pertinent information is taken from other notes in the computer and bedside staff. Sepsis Event Evaluation Height, Weight, BMI Height: '" Weight: 146lbs. oz. 66.363938ff; 21.02 BMI Method:Stated Focused Exam Lactate Level 01/09/23 17:45: Lactic Acid Level 2.96*H 01/09/23 21:16: Lactic Acid Level 2.23*H 01/09/23 23:12: Lactic Acid Level 1.13 Time of Focused Exam: 18:30 Exam Exam Patient acknowledged, consented, and participated in this virtual visit which was conducted using real time audio/video Vital Signs Date Time Temp Pulse Resp B/P (MAP) Pulse Ox O2 Delivery O2 Flow Rate FiO2 01/11/23 10:28 90 Nasal Cannula 10.00 01/11/23 10:05 80 High Flow N/C 10.00 01/11/23 10:00 93 38 117/77 (90) 92 Nasal Cannula 6.00 01/11/23 09:43 Nasal Cannula 6.00 01/11/23 09:00 94 38 125/65 (85) 90 Nasal Cannula 4.00 01/11/23 08:00 97 28 127/77 (94) 92 Nasal Cannula 4.00 01/11/23 07:34 99 01/11/23 07:00 94 112/62 (79) 95 Nasal Cannula 4.00 01/11/23 06:47 93 Nasal Cannula 4.00 01/11/23 06:00 86 120/66 (84) 92 Nasal Cannula 4.00 01/11/23 05:00 87 116/96 (97) 92 Nasal Cannula 4.00 01/11/23 04:00 89 122/70 (86) 91 Nasal Cannula 4.00 01/11/23 04:00 97 Nasal Cannula 4.00 01/11/23 03:26 37.5 01/11/23 03:00 95 129/75 (91) 92 Nasal Cannula 4.00 01/11/23 03:00 Nasal Cannula 4.00 01/11/23 02:44 92 88 Nasal Cannula 3.00 01/11/23 02:15 90 94 Nasal Cannula 2.00 01/11/23 02:00 89 146/73 (97) 93 Room Air 01/11/23 01:53 91 Room Air 01/11/23 01:00 72 01/11/23 01:00 72 124/69 (86) 92 Room Air 01/11/23 00:00 73 111/60 (75) 93 Room Air 01/10/23 23:59 97 Nasal Cannula 2.00 01/10/23 23:54 72 121/60 (80) 94 01/10/23 23:46 36.5 01/10/23 23:45 73 81/55 (65) 94 01/10/23 23:30 71 110/59 (77) 93 01/10/23 23:15 68 100/62 (72) 91 01/10/23 23:00 76 117/67 (81) 96 Room Air 01/10/23 22:45 83 121/63 (80) 92 01/10/23 22:30 74 113/62 (80) 93 01/10/23 22:23 94 Room Air 01/10/23 22:15 74 111/64 (78) 93 01/10/23 22:00 75 112/64 (80) 92 Room Air 01/10/23 21:45 77 106/62 (75) 94 01/10/23 21:30 78 104/60 (74) 93 01/10/23 21:15 80 118/65 (79) 95 01/10/23 21:00 81 91/59 (68) 95 Room Air 01/10/23 20:45 81 92/50 (65) 96 01/10/23 20:30 85 100/64 (74) 96 01/10/23 20:15 83 89/52 (63) 96 01/10/23 20:00 36.5 Room Air 01/10/23 20:00 85 88/51 (61) 97 Room Air 01/10/23 20:00 97 Room Air 01/10/23 19:45 88 87/55 (62) 98 01/10/23 19:30 90 100/60 (72) 98 01/10/23 19:15 91 97/53 (65) 94 01/10/23 19:00 90 01/10/23 19:00 90 119/69 (81) 97 Room Air 01/10/23 18:38 98 Room Air 01/10/23 18:37 82 114/72 (86) 99 Room Air 01/10/23 18:00 81 116/70 (85) 97 Room Air 01/10/23 17:00 80 112/67 (82) 98 Room Air 01/10/23 16:00 98 Room Air 01/10/23 15:55 36.6 01/10/23 15:00 82 9 95 Room Air 01/10/23 14:58 95 Room Air 01/10/23 14:00 81 19 137/77 (97) 96 Room Air 01/10/23 13:30 78 23 123/70 (86) 95 Room Air 01/10/23 13:00 79 7 109/70 (79) 95 Room Air 01/10/23 13:00 78 22 109/70 (83) 96 Room Air 01/10/23 12:30 80 16 108/65 (80) 95 Room Air 01/10/23 12:07 89 01/10/23 12:00 85 12 104/63 (77) 95 Room Air 01/10/23 12:00 95 Room Air 01/10/23 11:42 36.6 01/10/23 11:30 87 22 104/61 (69) 97 Room Air 01/10/23 11:30 87 22 104/61 (69) 97 Room Air 01/10/23 11:00 93 20 109/66 (80) 97 Room Air I & O 01/11/23 06:59 Intake Total 600 ml Output Total 1150 ml Balance -550 ml Height & Weight Height: '" Weight: 146lbs. oz. 66.153560gh; 21.02 BMI Method:Stated General Appearance: Chronically ill, Thin HEENT: PERRL/EOMI Respiratory: Normal Breath Sounds, No Accessory Muscle Use, No Respiratory Distress, Decreased Breath Sounds (at bases) Cardiovascular: Regular Rate, Rhythm, No Murmur Capillary Refill: Less Than 3 Seconds Gastrointestinal: non tender, soft; No distended, No guarding; hernia (small umbilical) Extremity: No Calf Tenderness, No Pedal Edema Neurologic/Psychiatric: Alert, Oriented x3, Depressed Affect Skin: Normal Color, Warm/Dry Results Lab Laboratory Tests 01/09/23 17:10 01/11/23 04:41 Assessment/Plan Assessment/Plan 1 WISAM HEWITT MD Jan 11, 2023 10:52
[2023-01-11] MEDS ORDERED: fentaNYL INJ 100 MCG/2 ML AMP ONE (10:56)
[2023-01-11] MEDS ORDERED: LIDOCAINE PF 2% 5 ML (XYLOCAINE) VIAL ONE (10:56)
[2023-01-11] MEDS ORDERED: SEVOFLURANE (ULTANE) 15 ML INHAL SOLN ONE ×2 (10:56→12:58)
[2023-01-11] MEDS ORDERED: ONDANSETRON 4 MG/2 ML (SDV) Z0FRAN ONE (10:56)
[2023-01-11] MEDS ORDERED: proPOfol 200 MG/20 ML (DIPRIVAN) VIAL IV ONE (10:56)
[2023-01-11] MEDS ORDERED: MIDAZOLAM 2 MG/2 ML (VERSED) VIAL ONE (10:56)
[2023-01-11] MEDS ORDERED: BUP/EPI 0.25% 1:200,000 (MARCAINE) 30 ML VIAL ONE (10:59)
[2023-01-11] MEDS: HYDROmorphone 2 MG/ML VIAL (DILAUDID) IV PRN ×4 (11:00→22:59)
[2023-01-11] MEDS: LACTATED RINGERS 1,000 ML IV PRN ×2 (11:17→12:27)
[2023-01-11] MEDS ORDERED: PHENYLEPHRINE 100 MCG/ML 10 ML (ANESTHESIA) SYR ONE (11:43)
[2023-01-11] MEDS ORDERED: BUP/EPI 0.25% 1:200,000 (MARCAINE) 30 ML VIAL INJ ONE (11:55)
[2023-01-11] MEDS ORDERED: ESMOLOL 100 MG/10 ML (BREVIBLOC) VIAL ONE (12:09)
[2023-01-11] MEDS ORDERED: IOHEXOL 300 MG/ML 100 ML (OMNIPAQUE 300) VIAL INJ ONE (12:25)
[2023-01-11] MEDS ORDERED: SUGAMMADEX 500 MG/5 ML VIAL (BRIDION) IV ONE (12:43)
[2023-01-11] MEDS ORDERED: ROCURONIUM 50 MG/5 ML (ZEMURON) VIAL IV ONE (12:50)
--- NOTE | 2023-01-11 13:08 | Progress Note ---
Subjective Subjective/Events-last exam Patient resting comfortably this AM getting echo. States that she would like to go forward with surgery. Denies any pain. Review of Systems Pulmonary: No Dyspnea, No Cough Cardiovascular: No: Chest Pain, Palpitations, Edema Gastrointestinal: No: Nausea, Vomiting, Abdominal Pain, Diarrhea, Constipation Neurological: Weakness, Incoordination Focused Exam Lactate Level 01/09/23 17:45: Lactic Acid Level 2.96*H 01/09/23 21:16: Lactic Acid Level 2.23*H 01/09/23 23:12: Lactic Acid Level 1.13 Time of Focused Exam: 18:30 Objective Exam Last Set of Vital Signs Vital Signs Date Time Temp Pulse Resp B/P (MAP) Pulse Ox O2 Delivery O2 Flow Rate FiO2 01/11/23 11:00 101 13 129/80 (96) 94 High Flow N/C 10.00 01/11/23 10:58 37.2 Capillary Refill : Less Than 3 Seconds I&O Intake and Output 01/10/23 23:59 Intake Total 2700 ml Output Total 2025 ml Balance 675 ml Intake Oral 600 ml IV Total 2100 ml Output Urine Total 2025 ml Daily Weight Change No General: Alert, Oriented X3, No Acute Distress HEENT: Mucous Memb Moist/[place] Lungs: Clear to Auscultation, Normal Air Movement Heart: Regular Rate, No Murmurs Abdomen: Normal Bowel Sounds, Soft, No Tenderness, No Masses Extremities: No Edema, No Tenderness/Swelling Neuro: Normal Speech Results/Procedures Lab Laboratory Tests 01/10/23 16:09: Glucometer 164H 01/10/23 21:11: Glucometer 310H 01/11/23 04:41: White Blood Count 4.0L, Red Blood Count 3.49L, Hemoglobin 11.2L, Hematocrit 32L, Mean Corpuscular Volume 92, Mean Corpuscular Hemoglobin 32, Mean Corpuscular Hemoglobin Concent 35, Red Cell Distribution Width 12.9, Platelet Count 111L, Mean Platelet Volume 10.9, Immature Granulocyte % (Auto) 1, Neutrophils (%) (Auto) 87H, Lymphocytes (%) (Auto) 7L, Monocytes (%) (Auto) 5, Eosinophils (%) (Auto) 2, Basophils (%) (Auto) 0, Neutrophils # (Auto) 3.5, Lymphocytes # (Auto) 0.3L, Monocytes # (Auto) 0.2, Eosinophils # (Auto) 0.1, Basophils # (Auto) 0.0, Immature Granulocyte # (Auto) 0.0, Sodium Level 137, Potassium Level 3.5L, Chloride Level 109H, Carbon Dioxide Level 18L, Anion Gap 10, Blood Urea Nitrogen 16, Creatinine 0.75, Estimat Glomerular Filtration Rate 91, BUN/Creatinine Ratio 21, Glucose Level 177H, Calcium Level 8.4L, Corrected Calcium 9.2, Phosphorus Level 2.6, Magnesium Level 1.8, Total Bilirubin 2.0H, Aspartate Amino Transf (AST/SGOT) 252H, Alanine Aminotransferase (ALT/SGPT) 420H, Alkaline Phosphatase 317H, Troponin I 0.118H, Total Protein 5.7L, Albumin 3.0L 01/11/23 05:20: Glucometer 163H 01/11/23 11:02: Glucometer 168H Microbiology 01/10/23 MRSA Screen - Final, Complete MRSA not isolated 01/09/23 Blood Culture - Preliminary, Resulted Escherichia coli See Comments Radiology Date of Exam:01/09/23 CT CHEST/ABDOMEN/PELVIS W PROCEDURE: CT chest, abdomen, and pelvis with contrast. TECHNIQUE: Multiple contiguous axial images were obtained through the chest, abdomen, and pelvis after the administration of intravenous contrast. Auto Exposure Controls were utilized during the CT exam to meet ALARA standards for radiation dose reduction. INDICATION: Sepsis with elevated liver function test. COMPARISON: 04/08/2022. FINDINGS: CT CHEST: Non rounded trachea. Linear areas of atelectasis are present in both lower lobes. No pneumonia or edema. No bronchiectasis or pulmonary fibrosis. No pleural effusion or pneumothorax. Thyroid is normal. No supraclavicular or axillary lymphadenopathy. No mediastinal or hilar lymphadenopathy. Heart is borderline enlarged without pericardial effusion. Normal caliber thoracic aorta has moderate calcifications. Coronary artery calcifications and/or stents are present. No worrisome focal osseous lesion. CT ABDOMEN AND PELVIS: No free intraperitoneal air or fluid. Liver has no focal abnormality. Cholelithiasis present with associated pericholecystic fluid. There is now mild intrahepatic and extrahepatic biliary duct dilatation. The common bile duct measures up to 11 mm and has abrupt truncation at the ampulla. Spleen and pancreas are normal. No feature of acute pancreatitis. No adrenal mass. Stable severe atrophy of the left kidney which demonstrates mild enhancement. A large stone on the left extrarenal pelvis may be due to chronic obstruction. Right kidney enhances normally. The partially calcified right adnexal mass is stable at 5.8 x 5.6 cm. No new adnexal mass. Uterus is normal. No pericolonic inflammatory change or bowel obstruction. Appendix is normal. Stomach is decompressed. Atherosclerotic aorta is normal in caliber. No worrisome focal osseous lesion. IMPRESSION: 1. Imaging features are highly suspicious for acute cholecystitis. Additionally, there is dilation of the common bile duct and intrahepatic bile ducts which may be due to choledocholithiasis. Consider MRCP or ERCP for further evaluation. 2. No pneumonia. 3. Unchanged partially calcified right adnexal mass. Dictated by: Dictated on workstation # [id number] Dict: 01/09/231899 Trans: 01/09/231926 PJE [id number] Interpreted by: ANNITA SANCHEZ MD Electronically signed by: ANNITA SANCHEZ MD 01/09/231926 Assessment/Plan Assessment/Plan (1) Severe sepsis Status: Acute Assessment & Plan: - HDS this AM, continue IV antibiotics and gentle hydration, blood cultures + Ecoli 3: HDS, continue IV antibiotics (2) Bacteremia due to Escherichia coli Status: Acute (3) NSTEMI (non-ST elevated myocardial infarction) Status: Acute Assessment & Plan: - Cardiology consulted, patient previously recommended to get bypass surgery but did not have it done, currently asymptomatic, Type 2 MN due to severe sepsis 01/11: Echo this AM, denies chest pain (4) Cholecystitis, acute with cholelithiasis Status: Acute Assessment & Plan: - Dr Walker consulted, appreciate recommendations 01/11: Plan for surgery today, will follow post op (5) Hypomagnesemia Status: Acute Assessment & Plan: - Replace and repeat in AM (6) HFrEF (heart failure with reduced ejection fraction) Status: Chronic (7) CAD (coronary artery disease) Status: Chronic Qualifiers: Qualified Codes: I25.10 - Atherosclerotic heart disease of [place] coronary artery without angina pectoris (8) HTN (hypertension) Status: Chronic Assessment & Plan: - hypotensive on admission, holding any BP meds Clinical Quality Measures DVT/VTE Risk/Contraindication: Contraindications-Pharm: Other *list below* Other: OR JODIE CELIS MD Jan 11, 2023 13:08
[2023-01-11] MEDS ORDERED: fentaNYL INJ 100 MCG/2 ML AMP IVP ONE (13:15)
[2023-01-11] MEDS ORDERED: ONDANSETRON 4 MG/2 ML (SDV) Z0FRAN IVP PRN ×2 (13:15→18:45)
--- NOTE | 2023-01-11 15:49 | Progress Note-Post Operative ---
Post-Operative Progess Note Surgeon (s)/Manager Sales Training (s) Surgeon ESPERANZA FRAGOSO DO Manager Sales Training: EBONI LiangII Pre-Operative Diagnosis Cholelithiasis/Cholecystitis and Choledochalithiasis without complete obstr Post-Operative Diagnosis Same plus pelvic mass Procedure & Operative Findings Date of Procedure 01/11/23 Procedure Performed/Findings PROCEDURE: Laparoscopic cholecystectomy with intraoperative cholangiogram. COMPLICATIONS: None. PROCEDURE: The patient was taken to the operating suite and was prepped and draped in sterile fashion. A surgical pause was performed. Just superior to the umbilicus, a 12 mm incision was made. Dissection was taken down to the fascia, which was then scored and grasped with a Rosita and the abdomen was then entered. A 0 Vicryl suture was placed in a [id number] fashion and a Thacker trocar was placed and secured. Pneumoperitoneum was achieved. A 5mm trochar place in the subxyphoid and 2 in the right upper quadrant. The gallbladder was then grasped at the fundus and elevated in the superior direction. She had multiple adhesions to the gallbladder which usually indicate previous attacks. The gallbladder wall was very thickened as well. Able to also grasp at Dumont's pouch and take in an infero-lateral dirction to get good visualization. The cystic duct was very large and curled over top of the common duct; which was also dilated. It looked like there was a stone in the CBD. The duct and cystic artery were then dissected out and clips placed across the artery, two inferior and one superior. Clip was placed on the distal portion of the cystic duct which was then partially transected. An arrow catheter was inserted into the duct. The cholangiogram was then performed, multiple large filling defects seen, but I was able to get contrast to make its way into the duodenum. Catheter removed. A clip was placed on proximal portion of the cystic duct and then the duct was then transected. I then elected to use an endoloop PDS to close the CBD. She will need an ERCP. The cystic artery which was then transected. Hook cautery was used to dissect the gallbladder from the gallbladder fossa achieving hemostasis. The gallbladder was placed in an Endobag and removed through the 12 mm trocar site. The abdomen was then reinspected. Copious amounts of irrigation were used to irrigate the abdomen and there were no signs of active bleeding. Hemostasis had been achieved. I did look in the pelvis and saw a large, firm mass that looked kind of like a large ovary; picture taken. All ports were then removed and the 12 mm fascial defect was then closed with 0 Vicryl suture that had been placed in a figure- of-eight fashion. The abdomen was then desufflated and the abdomen was then washed and dried. The skin was then closed using 4-0 Monocryl in a subcuticular fashion. The abdomen was washed and dried and Skin Affix was place over incisions. Patient tolerated the procedure well without any complications and was taken to the recovery room in stable condition. Anesthesia Type GET Estimated Blood Loss Estimated blood loss (mL): scant Specimens/Packing Specimens Removed GB and contents ESPERANZA FRAGOSO DO Jan 11, 2023 15:49
[2023-01-11] MEDS: NOREPINEPHRINE 8 MG/250 ML 250 ML IV SCH ×3 (15:50→20:50)
--- NOTE | 2023-01-11 17:03 | Diagnostic Imaging Report ---
INDICATION: Fluoroscopy for intraoperative cholangiogram. Fluoroscopy was provided in the OR during intraoperative cholangiogram. 30 seconds of fluoroscopic time was utilized. 187 images were obtained demonstrating contrast being injected via the cystic duct remnant. Intrahepatic and extrahepatic bile ducts are dilated. There is some abrupt tapering of the duct near the ampulla. There does appear to be contrast passing into the duodenum. There is some irregularity in the distal common duct, and the possibility of some retained stones cannot be entirely excluded. A follow-up MRCP could be performed. IMPRESSION: Intraoperative cholangiogram utilizing fluoroscopic guidance, as described. Dictated by: Dictated on workstation # [id number]
[2023-01-11] MEDS ORDERED: ACETAMINOPHEN 500 MG TAB (TYLENOL) PO ONE (18:45)
[2023-01-11] MEDS ORDERED: ACETAMINOPHEN 500 MG TAB (TYLENOL) ONE (18:51)
[2023-01-11] MEDS ORDERED: LACTATED RINGERS 1,000 ML IV ONE (19:29)
[2023-01-11] MEDS ORDERED: LACTATED RINGERS 1,000 ML IV SCH ×2 (19:30→20:30)
[2023-01-11 20:56] LABS: BASOPHILS % (AUTO) 0 % (0-10); EOSINOPHILS % (AUTO) 0 % (0-10); HEMATOCRIT 32 % (35-52); MEAN CORPUSCULAR VOLUME 93 fL (80-99)
[2023-01-11 20:58] LABS: HEMOGLOBIN 10.8 g/dL (11.5-16.0); LYMPHOCYTES # (AUTO) 0.2 10^3/uL (1.0-4.0); LYMPHOCYTES % (AUTO) 8 % (12-44); MEAN CORPUSCULAR HEMOGLOBIN 32 pg (25-34); MEAN CORPUSCULAR HGB CONC 34 g/dL (32-36); MEAN PLATELET VOLUME 11.2 fL (9.0-12.2); MONOCYTES # (AUTO) 0.1 10^3/uL (0.0-1.0); MONOCYTES % (AUTO) 4 % (0-12); NEUTROPHILS # (AUTO) 2.7 10^3/uL (1.8-7.8); NEUTROPHILS % (AUTO) 88 % (42-75); PLATELET COUNT 93 10^3/uL (130-400)
[2023-01-11 21:02] LABS: POTASSIUM 3.2 MMOL/L (3.6-5.0)
[2023-01-11 21:03] LABS: CALCIUM 8.2 MG/DL (8.5-10.1)
[2023-01-11 21:08] LABS: CREATININE SERUM 0.75 MG/DL (0.60-1.30); PHOSPHORUS 1.9 MG/DL (2.3-4.7)
[2023-01-11 21:10] LABS: MAGNESIUM 1.3 MG/DL (1.6-2.4)
[2023-01-11] MEDS ORDERED: MAGNESIUM 1 GM/100 ML IVPB 600 ML IV ONE (21:36)
[2023-01-11] MEDS ORDERED: POTASSIUM CL 10MEQ/50ML IVPB 400 ML IV ONE (21:36)
[2023-01-11 21:39] LABS: BAND NEUTROPHILS 2 %; EOSINOPHILS % (MANUAL) 1 %; LYMPHOCYTES % (MANUAL) 10 %; MONOCYTES % (MANUAL) 2 %; NEUTROPHILS % (MANUAL) 85 %; RBC MORPH NORMAL
[2023-01-12] MEDS: POTASSIUM CL 10MEQ/50ML IVPB 50 ML IV SCH ×5 (01:43→05:49)
[2023-01-12] MEDS: MAGNESIUM 1 GM/100 ML IVPB 100 ML IV SCH ×3 (01:43→05:49)
[2023-01-12] MEDS: RT-ALBUTEROL HFA 8.5 GM INHALER IH PRN ×2 (02:19→06:55)
[2023-01-12] MEDS: RT-ALBUTEROL HFA 8.5 GM INHALER IH SCH ×6 (02:19→22:13)
[2023-01-12] MEDS: PIPERACILLIN SODIUM/TAZOBACTAM 4.5 GM in NS (IVPB) 100 ML IV SCH ×3 (03:45→20:18)
[2023-01-12 04:51] LABS: EOSINOPHILS % (AUTO) 0 % (0-10); MEAN CORPUSCULAR VOLUME 94 fL (80-99); MONOCYTES # (AUTO) 0.2 10^3/uL (0.0-1.0)
[2023-01-12 04:53] LABS: BASOPHILS % (AUTO) 0 % (0-10); HEMATOCRIT 35 % (35-52); HEMOGLOBIN 12.2 g/dL (11.5-16.0); LYMPHOCYTES # (AUTO) 0.2 10^3/uL (1.0-4.0); LYMPHOCYTES % (AUTO) 5 % (12-44); MEAN CORPUSCULAR HEMOGLOBIN 33 pg (25-34); MEAN CORPUSCULAR HGB CONC 35 g/dL (32-36); MEAN PLATELET VOLUME 11.1 fL (9.0-12.2); MONOCYTES % (AUTO) 4 % (0-12); NEUTROPHILS # (AUTO) 4.3 10^3/uL (1.8-7.8); NEUTROPHILS % (AUTO) 91 % (42-75); PLATELET COUNT 111 10^3/uL (130-400); WHITE BLOOD COUNT 4.8 10^3/uL (4.3-11.0)
[2023-01-12 05:05] LABS: ALBUMIN 2.9 GM/DL (3.2-4.5); POTASSIUM 4.4 MMOL/L (3.6-5.0)
[2023-01-12 05:06] LABS: CALCIUM 8.3 MG/DL (8.5-10.1)
[2023-01-12 05:08] LABS: TOTAL PROTEIN 5.6 GM/DL (6.4-8.2)
[2023-01-12 05:09] LABS: BILIRUBIN,TOTAL 2.3 MG/DL (0.1-1.0)
[2023-01-12 05:11] LABS: CREATININE SERUM 0.74 MG/DL (0.60-1.30); PHOSPHORUS 1.8 MG/DL (2.3-4.7)
[2023-01-12 05:14] LABS: MAGNESIUM 2.5 MG/DL (1.6-2.4)
[2023-01-12] MEDS: KCL 20 MEQ TAB (K-DUR) PO SCH (05:49)
[2023-01-12] MEDS: inSUlin ASPART (NovoLOG) 1 UNIT/0.01 ML (CHARGE PER UNIT) SC SCH ×4 (05:50→20:25)
[2023-01-12] MEDS: NS IV 1000 ML 1,000 ML IV SCH ×3 (05:53→22:54)
[2023-01-12] MEDS ORDERED: VANCOMYCIN INJECTION 1,000 MG in NS (IVPB) 250 ML IV SCH (07:15)
--- NOTE | 2023-01-12 07:59 | Progress Note - Surgery ---
LEROY CHAVEZ 01/12/23 0759: Subjective Subjective/Events-last exam Patient comfortable in bed 1 day s/p laparoscopic cholecystectomy. She admits to epigastric pain with coughing (rated 3/10) but denies abdominal pain otherwise. She has had an intermittent, dry cough since yesterday morning. She denies denies nausea, vomitting, chest pain, SOB, pleuritic pain or chills. She had a brief episode of hypotension last night around 7:00 pm requiring Levophed; as of 6am she is not is off pressors with pressures of 90 -100 / 60 - 70. Review of Systems General: No Chills, No Night Sweats HEENT: No Head Aches Pulmonary: No Dyspnea; Cough (dry); No Pleuritic Chest Pain Cardiovascular: No: Chest Pain, Palpitations Gastrointestinal: Abdominal Pain (epigastric region when coughing); No: Nausea, Vomiting Genitourinary: No Dysuria, No Frequency Focused Exam Lactate Level 01/09/23 17:45: Lactic Acid Level 2.96*H 01/09/23 21:16: Lactic Acid Level 2.23*H 01/09/23 23:12: Lactic Acid Level 1.13 Time of Focused Exam: 18:30 Objective Exam Vital Signs Date Time Temp Pulse Resp B/P (MAP) Pulse Ox O2 Delivery O2 Flow Rate FiO2 01/12/23 07:38 100 01/12/23 07:00 95 Nasal Cannula 4.00 01/12/23 06:00 98 14 101/68 (79) 88 High Flow N/C 4.00 01/12/23 05:00 99 107/72 (84) 89 High Flow N/C 4.00 01/12/23 04:13 36.5 01/12/23 04:00 96 High Flow N/C 4.00 01/12/23 04:00 98 31 110/80 (92) 91 High Flow N/C 4.00 01/12/23 03:00 96 35 112/77 (90) 94 High Flow N/C 4.00 01/12/23 02:19 95 Nasal Cannula 4.00 01/12/23 02:00 89 24 111/74 (87) 96 High Flow N/C 4.00 01/12/23 01:00 89 23 98/70 (79) 95 High Flow N/C 4.00 01/12/23 01:00 90 01/12/23 00:30 87 24 92/66 (75) 98 High Flow N/C 4.00 01/12/23 00:00 88 24 86/63 (71) 98 High Flow N/C 4.00 01/11/23 23:51 36.3 01/11/23 23:50 96 High Flow N/C 4.00 01/11/23 23:00 92 26 100/60 (74) 98 High Flow N/C 4.00 01/11/23 22:44 98 Nasal Cannula 4.00 01/11/23 22:00 90 23 98/68 (78) 96 High Flow N/C 4.00 01/11/23 21:00 98 27 112/81 (92) 92 High Flow N/C 4.00 01/11/23 20:50 99 78/52 01/11/23 20:46 91 88/65 01/11/23 20:42 36.9 01/11/23 20:00 95 High Flow N/C 4.00 01/11/23 20:00 98 34 71/53 (60) 96 High Flow N/C 4.00 01/11/23 19:45 102 17 69/50 (57) 94 01/11/23 19:30 106 33 73/52 (63) 96 01/11/23 19:30 37.8 01/11/23 19:25 37.0 01/11/23 19:22 106 37 68/54 (58) 96 01/11/23 19:19 108 38 73/55 (60) 97 01/11/23 19:15 107 38 77/55 (64) 97 01/11/23 19:00 111 01/11/23 19:00 111 27 97/69 (81) 96 High Flow N/C 4.00 01/11/23 18:55 39.2 01/11/23 18:42 39.2 01/11/23 18:09 95 Nasal Cannula 4.00 01/11/23 18:00 105 43 106/76 (86) 94 High Flow N/C 4.00 01/11/23 17:01 95 High Flow N/C 4.00 01/11/23 17:00 104 11 105/78 (87) 95 OxyMask 6.00 01/11/23 16:58 OxyMask 4.00 01/11/23 16:15 100 29 106/78 (87) 95 OxyMask 6.00 01/11/23 16:00 101 30 109/78 (88) 92 OxyMask 6.00 01/11/23 16:00 94 OxyMask 6.00 01/11/23 16:00 37.5 01/11/23 15:50 101 125/89 01/11/23 15:45 101 35 119/81 (94) 91 OxyMask 6.00 01/11/23 15:30 105 29 118/85 (96) 89 OxyMask 6.00 01/11/23 15:28 37.7 01/11/23 15:24 92 OxyMask 6.00 01/11/23 15:15 104 34 122/88 (99) 90 OxyMask 8.00 01/11/23 15:00 104 37 121/87 (98) 91 OxyMask 8.00 01/11/23 14:57 93 OxyMask 8.00 01/11/23 14:50 94 OxyMask 10.00 01/11/23 14:33 87 OxyMask 15.00 01/11/23 14:12 101 01/11/23 14:07 37.6 101 12 125/89 (101) 91 OxyMask 6.00 01/11/23 14:00 OxyMask 6.00 01/11/23 14:00 36.8 20 125/86 (99) 94 OxyMask 6.00 01/11/23 14:00 101 13 125/89 (101) 94 High Flow N/C 10.00 01/11/23 13:50 18 112/81 (91) 93 OxyMask 5.00 01/11/23 13:47 OxyMask 6.00 01/11/23 13:41 OxyMask 6.00 01/11/23 13:40 18 122/84 (97) 93 OxyMask 6.00 01/11/23 13:33 OxyMask 6.00 01/11/23 13:30 18 115/81 (92) 93 OxyMask 6.00 01/11/23 13:27 OxyMask 6.00 01/11/23 13:22 OxyMask 6.00 01/11/23 13:20 18 110/78 (89) 93 OxyMask 6.00 01/11/23 13:10 24 108/78 (88) 94 OxyMask 6.00 01/11/23 13:10 OxyMask 6.00 01/11/23 13:02 OxyMask 6.00 01/11/23 13:02 36.9 26 92/67 (75) 95 OxyMask 6.00 01/11/23 11:00 101 13 129/80 (96) 94 High Flow N/C 10.00 01/11/23 10:58 37.2 01/11/23 10:28 90 Nasal Cannula 10.00 01/11/23 10:05 80 High Flow N/C 10.00 01/11/23 10:00 93 38 117/77 (90) 92 Nasal Cannula 6.00 01/11/23 09:43 Nasal Cannula 6.00 01/11/23 09:00 94 38 125/65 (85) 90 Nasal Cannula 4.00 01/11/23 08:00 97 Nasal Cannula 4.00 01/11/23 08:00 97 28 127/77 (94) 92 Nasal Cannula 4.00 I & O 01/12/23 07:00 Intake Total 2950 ml Output Total 4225 ml Balance -1275 ml Capillary Refill : Less Than 3 Seconds General Appearance: No Apparent Distress, Chronically ill HEENT: Pharynx Normal, Moist Mucous Membranes; No Scleral Icterus (L), No Scleral Icterus (R) Neck: Non Tender, Supple Respiratory: Chest Non Tender, No Accessory Muscle Use, No Respiratory Distress, Decreased Breath Sounds (throughout right lobe and in left lower lung base ) Cardiovascular: Regular Rate, Rhythm, No Murmur Gastrointestinal: normal bowel sounds, soft, hernia (small umbilical), other (incisions from surgery, healing well) Extremity: No Calf Tenderness, No Pedal Edema Neurologic/Psychiatric: Alert, Oriented x3 Skin: Normal Color, Warm/Dry Lymphatic: Other (mild cervical adenopathy) Results Lab Laboratory Tests 01/11/23 11:02: Glucometer 168H 01/11/23 13:08: Glucometer 181H 01/11/23 15:03: Glucometer 183H 01/11/23 15:20: Glucometer 184H 01/11/23 20:46: White Blood Count 3.0L, Red Blood Count 3.38L, Hemoglobin 10.8L, Hematocrit 32L, Mean Corpuscular Volume 93, Mean Corpuscular Hemoglobin 32, Mean Corpuscular Hemoglobin Concent 34, Red Cell Distribution Width 12.9, Platelet Count 93L, Mean Platelet Volume 11.2, Immature Granulocyte % (Auto) 0, Neutrophils (%) (Auto) 88H, Lymphocytes (%) (Auto) 8L, Monocytes (%) (Auto) 4, Eosinophils (%) (Auto) 0, Basophils (%) (Auto) 0, Neutrophils # (Auto) 2.7, Lymphocytes # (Auto) 0.2L, Monocytes # (Auto) 0.1, Eosinophils # (Auto) 0.0, Basophils # (Auto) 0.0, Immature Granulocyte # (Auto) 0.0, Neutrophils % (Manual) 85, Lymphocytes % (M anual) 10, Monocytes % (Manual) 2, Eosinophils % (Manual) 1, Band Neutrophils 2, Percent Immature Platelet Fraction 4.1, Blood Morphology Comment NORMAL, Venous Blood pH 7.44H, Venous Blood Partial Pressure CO2 32L, Venous Blood HCO3 22, Sodium Level 139, Potassium Level 3.2L, Chloride Level 109H, Carbon Dioxide Level 19L, Anion Gap 11, Blood Urea Nitrogen 11, Creatinine 0.75, Estimat Glomerular Filtration Rate 91, BUN/Creatinine Ratio 15, Glucose Level 115H, Calcium Level 8.2L, Phosphorus Level 1.9L, Magnesium Level 1.3L, Troponin I 0.124H 01/12/23 04:44: White Blood Count 4.8, Red Blood Count 3.75L, Hemoglobin 12.2, Hematocrit 35, Mean Corpuscular Volume 94, Mean Corpuscular Hemoglobin 33, Mean Corpuscular Hemoglobin Concent 35, Red Cell Distribution Width 12.9, Platelet Count 111L, Mean Platelet Volume 11.1, Immature Granulocyte % (Auto) 0, Neutrophils (%) (Auto) 91H, Lymphocytes (%) (Auto) 5L, Monocytes (%) (Auto) 4, Eosinophils (%) (Auto) 0, Basophils (%) (Auto) 0, Neutrophils # (Auto) 4.3, Lymphocytes # (Auto) 0.2L, Monocytes # (Auto) 0.2, Eosinophils # (Auto) 0.0, Basophils # (Auto) 0.0, Immature Granulocyte # (Auto) 0.0, Percent Immature Platelet Fraction 5.0, Sodium Level 134L, Potassium Level 4.4, Chloride Level 106, Carbon Dioxide Level 18L, Anion Gap 10, Blood Urea Nitrogen 10, Creatinine 0.74, Estimat Glomerular Filtration Rate 93, BUN/Creatinine Ratio 14, Glucose Level 215H, Calcium Level 8.3L, Phosphorus Level 1.8L, Magnesium Level 2.5H, Corrected Calcium 9.2, Total Bilirubin 2.3H, Aspartate Amino Transf (AST/SGOT) 106H, Alanine Aminotransferase (ALT/SGPT) 279H, Alkaline Phosphatase 273H, Total Protein 5.6L, Albumin 2.9L Microbiology 01/10/23 MRSA Screen - Final, Complete MRSA not isolated 01/09/23 Blood Culture - Preliminary, Resulted Escherichia coli See Comments Assessment/Plan Assessment/Plan Assessment/Plan 1 day s/p laparoscopic cholecystectomy for cholecystitis with cholelilithiasis Choledochalithiasis - confirmed by MRI not complete obstruction Elevated liver enzymes - slightly improved compared to yesterday Direct hyperbilirubinemia - 3.4 on 01/09, 2.0 yesterday and 2.3 today Facility acquired PNA - first shown on 01/11 CXR, worsening opacifications on 01/12 CXR Hypotension - Levophed given yesterday; currently off pressors Hypomagnesemia - resolved Diarrhea - resolved Elevated troponin (0.063 on 01/09, 0.118 yesterday and today's levels pending); cardiology suspects Type II NSTEMI related to E. coli bacteremia CAD - 3 stents placed in 2009; CABG was recommended by cardiology based on catherization in 2021 HF with EF 30-35% - per 2021 echocardiogram; results of Echo done on 01/11 pending IDDM Continue vancomycin and zosin for PNA Clinical Quality Measures DVT/VTE Risk/Contraindication: Contraindications-Pharm: Other *list below* Other: OR TEOFILO WALKER DO 01/12/23 1444: Subjective Time Seen by a Provider: 12:15 Subjective/Events-last exam Pt seen and examined, she is sitting up in chair but had eyes closed and had just eaten some lunch. She denied CP or SOB, did admit to mild abdominal pain. Review of Systems General: No Chills, No Night Sweats Pulmonary: No Dyspnea; Cough (dry) Cardiovascular: No: Chest Pain, Palpitations Gastrointestinal: Abdominal Pain (epigastric region when coughing); No: Nausea, Vomiting Objective Exam General Appearance: No Apparent Distress, Chronically ill HEENT: Moist Mucous Membranes Respiratory: Chest Non Tender, No Accessory Muscle Use, No Respiratory Distress, Decreased Breath Sounds (throughout right lobe and in left lower lung base ) Cardiovascular: Regular Rate, Rhythm, No Murmur Gastrointestinal: normal bowel sounds, soft, hernia (small umbilical), other (incisions from surgery, healing well) Extremity: No Calf Tenderness, No Pedal Edema Neurologic/Psychiatric: Alert, Oriented x3 Assessment/Plan Assessment/Plan Assessment/Plan POD #1 s/p laparoscopic cholecystectomy for cholecystitis with cholelilithiasis and Choledochalithiasis Elevated liver enzymes - slightly improved compared to yesterday Direct hyperbilirubinemia - 3.4 on 01/09, 2.0 yesterday and 2.3 today Worsening opacifications on 01/12 CXR - PNA vs Edema Hypotension - Levophed given yesterday; currently off pressors Hypomagnesemia - resolved Diarrhea - resolved Elevated troponin (0.063 on 01/09, 0.118 yesterday and today's levels pending); cardiology suspects Type II NSTEMI related to E. coli bacteremia CAD - 3 stents placed in 2009; CABG was recommended by cardiology based on catherization in 2021 HF with EF 30-35% - per 2021 echocardiogram; results of Echo done on 01/11 pending IDDM Continue vancomycin and zosyn, I would like pt to be a little more stable so we can send her to [facility] for ERCP; hopefully tomorrow. Supervisory-Addendum Brief Verification & Attestation Participated in pt care: history, MDM, physical Personally performed: exam, history, MDM, supervision of care Care discussed with: Medical Student Procedures: n/a Verification and Attestation of Medical Student E/M Service A medical student performed and documented this service. I then reviewed and verified all information documented by the medical student and made modifications to such information, when appropriate. I personally performed a physical exam, medical decision making and then discussed any differences between the notes and made revisions as necessary to create one note. Teofilo Walker , 01/12/23 , 14:44 LEROY CHAVEZ Jan 12, 2023 07:59 TEOFILO AWLKER DO Jan 12, 2023 14:44
[2023-01-12] MEDS ORDERED: VANCOMYCIN 1500MG/300ML PREMIX IV ONE (08:00)
[2023-01-12] MEDS: PANTOPRAZOLE 40 MG (PROTONIX) VIAL IV SCH (08:32)
[2023-01-12] MEDS: SENNOSIDES 8.6 MG (SENOKOT) TAB PO SCH ×2 (08:36→20:24)
[2023-01-12] MEDS: CLOPIDOGREL 75 MG (PLAVIX) TABLET PO SCH (08:37)
[2023-01-12] MEDS: DOCUSATE SODIUM 100 MG (COLACE) CAP PO SCH ×2 (08:37→20:24)
--- NOTE | 2023-01-12 08:39 | Diagnostic Imaging Report ---
INDICATION: 62-year-old female, sepsis, ICU care management. Post laparoscopic cholecystectomy one day earlier.. TECHNIQUE: Single view chest 5:25 AM. CORRELATION STUDY: 01/11/2023 FINDINGS: Heart size and mediastinum are generally stable. Extensive bilateral infiltrate-like opacities right greater than left overall adversely increased particularly in the right mid lung field. Probable small effusions. No appreciable pneumothorax. IMPRESSION: 1. Rather extensive 5 lobe and increasing severity of bilateral pulmonary infiltrate-like opacities. May reflect worsening pneumonia and/or potentially aspiration given recent surgery. Possibility of edema is not excluded. Followup imaging is recommended. Dictated by: Dictated on workstation # [id number]
[2023-01-12] MEDS: ACETAMINOPHEN 325 MG TABLET PO PRN ×3 (08:42→22:38)
--- NOTE | 2023-01-12 08:48 | Cardiology Progress Note ---
Subjective Date Seen by Provider: Jan 12, 2023 Time Seen by Provider: 07:45 Subjective/Events-last exam Pt had lap cholecystectomy with intraoperative cholangiogram yesterday. Pt has been recoommeded for ERCP. CXR with concerning R lung consolidation and new fever to 39.2 yesterday. Pt states she feels worn out today Focused Exam Lactate Level 01/09/23 21:16: Lactic Acid Level 2.23*H 01/09/23 23:12: Lactic Acid Level 1.13 01/12/23 07:41: Lactic Acid Level 1.09 Time of Focused Exam: 18:30 Lactic Acid Level Laboratory Tests Test 01/12/23 07:41 Lactic Acid Level 1.09 MMOL/L (0.50-2.00) Objective-Cardiology Exam Last Set of Vital Signs Vital Signs 01/12/23 01/12/23 01/12/23 01/12/23 06:00 07:00 07:38 08:08 Temp 38.7 Pulse 100 Resp 14 B/P (MAP) 101/68 (79) Pulse Ox 95 O2 Delivery Nasal Cannula O2 Flow Rate 4.00 I&O Intake and Output 01/12/23 00:00 Intake Total 2950 ml Output Total 3900 ml Balance -950 ml Intake Oral 50 ml IV Total 2900 ml Output Urine Total 3900 ml General: Alert, Oriented X3, No Acute Distress HEENT: Mucous Memb Moist/[place] Lungs: Clear to Auscultation, Normal Air Movement Heart: Regular Rate, No Murmurs Abdomen: Normal Bowel Sounds, Soft, No Tenderness, No Masses Extremities: No Edema, No Tenderness/Swelling Neuro: Normal Speech Other physical findings GENERAL: She is in no acute distress. She is tachypneic this AM. State NECK: Soft and supple. No cervical lymphadenopathy or thyromegaly. LUNGS: Diminished in the bilateral lung ma (but worse on the right). No wheezing, rales; + rhonch noted bilaterally today; or rhonchi. HEART: Regular rate and rhythm, normal S1, S2. No gallops or rubs. She does have a soft systolic murmur. EXTREMITIES: Warm and well perfused. She has no cyanosis, clubbing or edema. ABDOMEN: Absent bowel sounds, soft, mild tenderness, nondistended. No Huerta sign appreciated. EXTREMITIES: Warm and well perfused. She has no cyanosis or clubbing. She does have trace edema in the bilateral lower extremities. Results Lab Laboratory Tests 01/11/23 20:46 01/12/23 04:44 A/P-Cardiology Assessment/Plan 62F with the above-mentioned medical problems who presents for weakness, found to have sepsis with E. coli bacteremia of unclear source. ## Increased oxygen requirement- saturating 88% on 4L N C - CXR yesterday and today with consolidation of R lung + vascular congestion -hold on diuresis today given BPs to 60s overnight- was on levophed transiently ## Pneumonia- fevers to 39.2, SBP to 60s overnight, requiring pressor support with increased oxygen supplementation - cont zosyn -start Vanc - fever workup (U/A and repeat blood cultures ordered) ## Sepsis with Escherichia coli bacteremia. Likely gall bladder source. - Continue with Zosyn; sensitivites pending - Support blood pressure as needed (favor Levophed or dopamine) ## Ischemic CM: TTE demonstrates EF 40-45% with akinetic apex, hypokinesis of anteroseptum, grade 3 Diastolic dysfunciton and mild MS (mean MVgradient of 5mmHg with HR of 95bpm) - cont plavix for now - once nearing discharge: restart Bumex 1 QD, start lisinopril 2.5 qd, atorvstatin 40 qhs, aspirin 81, toprol xl 25 and jardiance 10mg po QD - pt will need cards follow up. ## CAD, status post [place] and PCI in the past with known 3-vessel severe CAD, surgical turn down. - cont plavix - look to start aspirin, beta liang, Toprol XL 12.5 once potential surgical course is better defined. ## ? Cholecystitis- s/p lap cholecystectomy - recommendation for ERCP as per surgical report - LFTs downtrending - Cont Zosyn ## [id number] myocardial infarction, likely type 2 NSTEMI in the setting of E. coli bacteremia and associated sepsis. - cont to monitor - Tn downtrended (0.06-0.20-0.12), no need to keep trending. ## Hypertension. Blood pressures 60s-140s. - continue to monitor. - levophed as need for MAPs > 65 ## DISPOSITION: - we will have her follow up with Dr. Hamad as an outpatient to determine whether she should be considered for multivessel PCI at an outside facility. - once nearing discharge: restart Bumex 1 QD, start lisinopril 2.5 qd, atorvstatin 40 qhs, aspirin 81, toprol xl 25 and jardiance 10mg po QD - today is last day I provide cardiology coverage; cardiology coverage will return on 01/17/23 FLAKO FABIAN MD Jan 12, 2023 08:48
--- NOTE | 2023-01-12 09:43 | Tele-ICU Progress Note ---
Subjective Date Seen by a Provider: Jan 12, 2023 Time Seen by a Provider: 09:43 Subjective/Events-last exam (Tele-ICU Physician , Progress Note ) Service provided via interactive audio and video telecommunications E-CARE system to a patient admitted to ICU bed in [facility]. Patient is seen today due to persistent need of ICU care Available chart/ vitals / labs / Images reviewed Video assessment done using teleICU camera, rest of exam as per RN Discussed with RN Events overnight : Afebrile hemodynamically stable Respiratory - I/O = Drips: Pressors- no Hospital course: (01/09) 62F Admitted w/ weakness, dehydration, acute cholecystitis w/cholelithiasis, cholangitis. Hypotensive in ER - sepsis protocol initiated (01/10) MRCP shows multiple stones w/i distal CBD and cholelitiasis with GB wall thickening and edema. 01/11- OR ,s/p lap cholecystectomy with intraoperative cholangiogram ,was on levophed transiently and 15 L o2 post op A/P acute cholecystitis w/cholelithiasis, cholangitis -(01/10) MRCP shows multiple stones w/i distal CBD and cholelitiasis with GB wall thickening and edema. - Zosyn 01/09 --> , vanco 01/12 -- s/p lap cholecystectomy with intraoperative cholangiogram 01/11 ( She will need an ERCP as per sx ) Hypotension / Sepsis with Escherichia coli bacteremia due to above - sepsis protocol initiated, responded to fluid , -was on levophed transiently 01/11 -not on pressors now - cont abx RIGHT PNA ( new 01/11 , CTchest 01/09 - right lung is cleear ) -= cont zosyn , vanco 01/12 Hypoxia , WORSENING 01/11 - with COPD and PNA and VO - was given bumex x1 01/11 , was on 15 L post op - on 4 L now , CXR is wotrsenign on right side ICM with known 3-vessel severe CAD -TTE demonstrates EF 40-45% with akinetic apex, hypokinesis of anteroseptum, grade 3 Diastolic dysfunciton and mild MS - as per cards - on plavix Thrombocytopenia 111 01/11 ( not on heparins) - stable - on plavix ( on hold for sx) DM II - ISS Seizure dz - cont Keppra IV Lines : periph , (Central Line Necessity Reviewed) Lang: 01/10 OG: Nutrition: as per sx Analgesia: Anxiety/ delirium VTE Prophylaxis: scd , start shantanu when ok with Sx Stress Ulcer Prophylaxis: na Plans in collaboration with bedside consultants and IM MDs. Discussed with RN to reach out if any questions or concerns Case and care discussed with the multidisciplinary (MD, DORYS, RN, PharmD, Nutrit ion and Respiratory Therapy) ICU service earlier on rounds. A total of 31 minutes of critical care time was devoted to this patient today, required to treat and/or prevent further deterioration of critical care condition ( as above ) . Sepsis Event Evaluation Height, Weight, BMI Height: '" Weight: 146lbs. oz. 66.291306ix; 21.02 BMI Method:Stated Focused Exam Lactate Level 01/09/23 21:16: Lactic Acid Level 2.23*H 01/09/23 23:12: Lactic Acid Level 1.13 01/12/23 07:41: Lactic Acid Level 1.09 Time of Focused Exam: 18:30 Lactic Acid Level Laboratory Tests Test 01/12/23 07:41 Lactic Acid Level 1.09 MMOL/L (0.50-2.00) Exam Exam Patient acknowledged, consented, and participated in this virtual visit which was conducted using real time audio/video Vital Signs Date Time Temp Pulse Resp B/P (MAP) Pulse Ox O2 Delivery O2 Flow Rate FiO2 01/12/23 08:42 38.7 01/12/23 08:08 38.7 01/12/23 08:00 98 7 102/74 (83) 94 High Flow N/C 4.00 01/12/23 07:38 100 01/12/23 07:00 99 23 90/62 (71) 91 High Flow N/C 4.00 01/12/23 07:00 95 Nasal Cannula 4.00 01/12/23 06:00 98 14 101/68 (79) 88 High Flow N/C 4.00 01/12/23 05:00 99 107/72 (84) 89 High Flow N/C 4.00 01/12/23 04:13 36.5 01/12/23 04:00 96 High Flow N/C 4.00 01/12/23 04:00 98 31 110/80 (92) 91 High Flow N/C 4.00 01/12/23 03:00 96 35 112/77 (90) 94 High Flow N/C 4.00 01/12/23 02:19 95 Nasal Cannula 4.00 01/12/23 02:00 89 24 111/74 (87) 96 High Flow N/C 4.00 01/12/23 01:00 89 23 98/70 (79) 95 High Flow N/C 4.00 01/12/23 01:00 90 01/12/23 00:30 87 24 92/66 (75) 98 High Flow N/C 4.00 01/12/23 00:00 88 24 86/63 (71) 98 High Flow N/C 4.00 01/11/23 23:51 36.3 01/11/23 23:50 96 High Flow N/C 4.00 01/11/23 23:00 92 26 100/60 (74) 98 High Flow N/C 4.00 01/11/23 22:44 98 Nasal Cannula 4.00 01/11/23 22:00 90 23 98/68 (78) 96 High Flow N/C 4.00 01/11/23 21:00 98 27 112/81 (92) 92 High Flow N/C 4.00 01/11/23 20:50 99 78/52 01/11/23 20:46 91 88/65 01/11/23 20:42 36.9 01/11/23 20:00 95 High Flow N/C 4.00 01/11/23 20:00 98 34 71/53 (60) 96 High Flow N/C 4.00 01/11/23 19:45 102 17 69/50 (57) 94 01/11/23 19:30 106 33 73/52 (63) 96 01/11/23 19:30 37.8 01/11/23 19:25 37.0 01/11/23 19:22 106 37 68/54 (58) 96 01/11/23 19:19 108 38 73/55 (60) 97 01/11/23 19:15 107 38 77/55 (64) 97 01/11/23 19:00 111 01/11/23 19:00 111 27 97/69 (81) 96 High Flow N/C 4.00 01/11/23 18:55 39.2 01/11/23 18:42 39.2 01/11/23 18:09 95 Nasal Cannula 4.00 01/11/23 18:00 105 43 106/76 (86) 94 High Flow N/C 4.00 01/11/23 17:01 95 High Flow N/C 4.00 01/11/23 17:00 104 11 105/78 (87) 95 OxyMask 6.00 01/11/23 16:58 OxyMask 4.00 01/11/23 16:15 100 29 106/78 (87) 95 OxyMask 6.00 01/11/23 16:00 101 30 109/78 (88) 92 OxyMask 6.00 01/11/23 16:00 94 OxyMask 6.00 01/11/23 16:00 37.5 01/11/23 15:50 101 125/89 01/11/23 15:45 101 35 119/81 (94) 91 OxyMask 6.00 01/11/23 15:30 105 29 118/85 (96) 89 OxyMask 6.00 01/11/23 15:28 37.7 01/11/23 15:24 92 OxyMask 6.00 01/11/23 15:15 104 34 122/88 (99) 90 OxyMask 8.00 01/11/23 15:00 104 37 121/87 (98) 91 OxyMask 8.00 01/11/23 14:57 93 OxyMask 8.00 01/11/23 14:50 94 OxyMask 10.00 01/11/23 14:33 87 OxyMask 15.00 01/11/23 14:12 101 01/11/23 14:07 37.6 101 12 125/89 (101) 91 OxyMask 6.00 01/11/23 14:00 OxyMask 6.00 01/11/23 14:00 36.8 20 125/86 (99) 94 OxyMask 6.00 01/11/23 14:00 101 13 125/89 (101) 94 High Flow N/C 10.00 01/11/23 13:50 18 112/81 (91) 93 OxyMask 5.00 01/11/23 13:47 OxyMask 6.00 01/11/23 13:41 OxyMask 6.00 01/11/23 13:40 18 122/84 (97) 93 OxyMask 6.00 01/11/23 13:33 OxyMask 6.00 01/11/23 13:30 18 115/81 (92) 93 OxyMask 6.00 01/11/23 13:27 OxyMask 6.00 01/11/23 13:22 OxyMask 6.00 01/11/23 13:20 18 110/78 (89) 93 OxyMask 6.00 01/11/23 13:10 24 108/78 (88) 94 OxyMask 6.00 01/11/23 13:10 OxyMask 6.00 01/11/23 13:02 OxyMask 6.00 01/11/23 13:02 36.9 26 92/67 (75) 95 OxyMask 6.00 01/11/23 11:00 101 13 129/80 (96) 94 High Flow N/C 10.00 01/11/23 10:58 37.2 01/11/23 10:28 90 Nasal Cannula 10.00 01/11/23 10:05 80 High Flow N/C 10.00 01/11/23 10:00 93 38 117/77 (90) 92 Nasal Cannula 6.00 01/11/23 09:43 Nasal Cannula 6.00 I & O 01/12/23 07:00 Intake Total 2950 ml Output Total 4225 ml Balance -1275 ml Height & Weight Height: '" Weight: 146lbs. oz. 66.799024wi; 21.02 BMI Method:Stated General Appearance: No Apparent Distress, Chronically ill HEENT: Pharynx Normal, Moist Mucous Membranes; No Scleral Icterus (L), No Scleral Icterus (R) Neck: Non Tender, Supple Respiratory: Chest Non Tender, No Accessory Muscle Use, No Respiratory Distress, Decreased Breath Sounds (throughout right lobe and in left lower lung base ) Cardiovascular: Regular Rate, Rhythm, No Murmur Capillary Refill: Less Than 3 Seconds Gastrointestinal: normal bowel sounds, soft, hernia (small umbilical), other (incisions from surgery, healing well) Extremity: No Calf Tenderness, No Pedal Edema Neurologic/Psychiatric: Alert, Oriented x3 Skin: Normal Color, Warm/Dry Lymphatic: Other (mild cervical adenopathy) Results Lab Laboratory Tests 01/11/23 04:41 01/11/23 20:46 01/12/23 04:44 Assessment/Plan Assessment/Plan 1 WISAM HEWITT MD Jan 12, 2023 09:43
[2023-01-12 11:02] LABS: BILIRUBIN,URINE NEGATIVE (NEGATIVE); CLARITY,URINE CLEAR; COLOR,URINE YELLOW; GLUCOSE, URINE (UA) NEGATIVE (NEGATIVE); KETONES,URINE TRACE (NEGATIVE); LEUKOCYTE ESTERASE ,URINE NEGATIVE (NEGATIVE); NITRITE,URINE NEGATIVE (NEGATIVE); PROTEIN,URINE 2+ (NEGATIVE)
[2023-01-12 11:15] LABS: RBC,URINE 0-2 /HPF; WBC,URINE RARE /HPF
[2023-01-12 11:16] LABS: AMORPHOUS SEDIMENT,UR MOD AMOR URATES /LPF; BACTERIA,URINE MODERATE /HPF; HYALINE CASTS, URINE 0-2 /LPF
--- NOTE | 2023-01-12 14:21 | Physical Therapy Progress Note ---
Therapy Progress Note Patient refused stating she is supposed to have a second surgery tomorrow and doesn't feel like doing anything at this time. Nurse notified and reports she is unaware of a second surgery. Will attempt evaluation again tomorrow and proceed with treatment per patient participation. JOSEPH SWANSON PT Jan 12, 2023 14:21
--- NOTE | 2023-01-12 14:59 | Anesthesia-General Post-Op ---
General Patient Condition Mental Status/LOC: Same as Preop Cardiovascular: Satisfactory Nausea/Vomiting: Absent Respiratory: Satisfactory Pain: Controlled Complications: Absent Post Op Complications Complications None Follow Up Care/Instructions Patient Instructions None needed. Anesthesia/Patient Condition Patient Condition Patient is doing well, no complaints, stable vital signs, no apparent adverse anesthesia problems. No complications reported per nursing. SAMI CLEMENTS CRNA Jan 12, 2023 14:59
[2023-01-12] MEDS: NOREPINEPHRINE 8 MG/250 ML 250 ML IV SCH (15:29)
--- NOTE | 2023-01-12 17:53 | Progress Note ---
Subjective Subjective/Events-last exam Patient states that she is doing ok this AM. Having some increasing shortness of breath. Pain with coughing. Review of Systems General: Fatigue, Malaise Pulmonary: Dyspnea, Cough Cardiovascular: No: Chest Pain, Palpitations, Edema Gastrointestinal: Abdominal Pain; No: Nausea, Vomiting, Diarrhea, Constipation Neurological: Weakness, Incoordination Focused Exam Lactate Level 01/09/23 21:16: Lactic Acid Level 2.23*H 01/09/23 23:12: Lactic Acid Level 1.13 01/12/23 07:41: Lactic Acid Level 1.09 Time of Focused Exam: 18:30 Objective Exam Last Set of Vital Signs Vital Signs Date Time Temp Pulse Resp B/P (MAP) Pulse Ox O2 Delivery O2 Flow Rate FiO2 01/12/23 17:29 37.2 01/12/23 17:00 95 13 94/57 (69) 97 High Flow N/C 4.00 Capillary Refill : Less Than 3 Seconds I&O Intake and Output 01/12/23 00:00 Intake Total 2950 ml Output Total 3900 ml Balance -950 ml Intake Oral 50 ml IV Total 2900 ml Output Urine Total 3900 ml General: Alert, Oriented X3, No Acute Distress Lungs: Other (basilar crackles, normal work of breathing.) Heart: Regular Rate, No Murmurs Abdomen: Soft, Other (mild ttp around surgical incisions) Extremities: No Edema, No Tenderness/Swelling Neuro: Normal Speech Results/Procedures Lab Laboratory Tests 01/11/23 20:46: White Blood Count 3.0L, Red Blood Count 3.38L, Hemoglobin 10.8L, Hematocrit 32L, Mean Corpuscular Volume 93, Mean Corpuscular Hemoglobin 32, Mean Corpuscular Hemoglobin Concent 34, Red Cell Distribution Width 12.9, Platelet Count 93L, Mean Platelet Volume 11.2, Immature Granulocyte % (Auto) 0, Neutrophils (%) (Auto) 88H, Lymphocytes (%) (Auto) 8L, Monocytes (%) (Auto) 4, Eosinophils (%) (Auto) 0, Basophils (%) (Auto) 0, Neutrophils # (Auto) 2.7, Lymphocytes # (Auto) 0.2L, Monocytes # (Auto) 0.1, Eosinophils # (Auto) 0.0, Basophils # (Auto) 0.0, Immature Granulocyte # (Auto) 0.0, Neutrophils % (Manual) 85, Lymphocytes % (Manual) 10, Monocytes % (Manual) 2, Eosinophils % (Manual) 1, Band Neutrophils 2, Percent Immature Platelet Fraction 4.1, Blood Morphology Comment NORMAL, Venous Blood pH 7.44H, Venous Blood Partial Pressure CO2 32L, Venous Blood HCO3 22, Sodium Level 139, Potassium Level 3.2L, Chloride Level 109H, Carbon Dioxide Level 19L, Anion Gap 11, Blood Urea Nitrogen 11, Creatinine 0.75, Estimat Glomerular Filtration Rate 91, BUN/Creatinine Ratio 15, Glucose Level 115H, Calcium Level 8.2L, Phosphorus Level 1.9L, Magnesium Level 1.3L, Troponin I 0.124H 01/12/23 04:44: White Blood Count 4.8, Red Blood Count 3.75L, Hemoglobin 12.2, Hematocrit 35, Mean Corpuscular Volume 94, Mean Corpuscular Hemoglobin 33, Mean Corpuscular Hemoglobin Concent 35, Red Cell Distribution Width 12.9, Platelet Count 111L, Mean Platelet Volume 11.1, Immature Granulocyte % (Auto) 0, Neutrophils (%) (Auto) 91H, Lymphocytes (%) (Auto) 5L, Monocytes (%) (Auto) 4, Eosinophils (%) (Auto) 0, Basophils (%) (Auto) 0, Neutrophils # (Auto) 4.3, Lymphocytes # (Auto) 0.2L, Monocytes # (Auto) 0.2, Eosinophils # (Auto) 0.0, Basophils # (Auto) 0.0, Immature Granulocyte # (Auto) 0.0, Percent Immature Platelet Fraction 5.0, Sodium Level 134L, Potassium Level 4.4, Chloride Level 106, Carbon Dioxide Level 18L, Anion Gap 10, Blood Urea Nitrogen 10, Creatinine 0.74, Estimat Glomerular Filtration Rate 93, BUN/Creatinine Ratio 14, Glucose Level 215H, Calcium Level 8.3L, Phosphorus Level 1.8L, Magnesium Level 2.5H, Corrected Calcium 9.2, Total Bilirubin 2.3H, Aspartate Amino Transf (AST/SGOT) 106H, Alanine Aminotransferase (ALT/SGPT) 279H, Alkaline Phosphatase 273H, Total Protein 5.6L, Albumin 2.9L 01/12/23 07:41: Lactic Acid Level 1.09 01/12/23 07:55: Urine Color YELLOW, Urine Clarity CLEAR, Urine pH 6.0, Urine Specific [place] 1.025H, Urine Protein 2+H, Urine Glucose (UA) NEGATIVE, Urine Ketones TRACEH, Ur ine Nitrite NEGATIVE, Urine Bilirubin NEGATIVE, Urine Urobilinogen 0.2, Urine Leukocyte Esterase NEGATIVE, Urine RBC (Auto) 2+H, Urine RBC 0-2, Urine WBC RARE, Urine Crystals PRESENTH, Urine Amorphous Sediment MOD LEONARDO URATESH, Urine Bacteria MODERATEH, Urine Casts PRESENT, Urine Hyaline Casts 0-2H, Urine Mucus NEGATIVE, Urine Culture Indicated YES 01/12/23 10:06: Glucometer 166H 01/12/23 16:20: Glucometer 135H Microbiology 01/10/23 MRSA Screen - Final, Complete MRSA not isolated 01/09/23 Blood Culture - Preliminary, Resulted Escherichia coli See Comments Radiology Date of Exam:01/09/23 CT CHEST/ABDOMEN/PELVIS W PROCEDURE: CT chest, abdomen, and pelvis with contrast. TECHNIQUE: Multiple contiguous axial images were obtained through the chest, abdomen, and pelvis after the administration of intravenous contrast. Auto Exposure Controls were utilized during the CT exam to meet ALARA standards for radiation dose reduction. INDICATION: Sepsis with elevated liver function test. COMPARISON: 04/08/2022. FINDINGS: CT CHEST: Non rounded trachea. Linear areas of atelectasis are present in both lower lobes. No pneumonia or edema. No bronchiectasis or pulmonary fibrosis. No pleural effusion or pneumothorax. Thyroid is normal. No supraclavicular or axillary lymphadenopathy. No mediastinal or hilar lymphadenopathy. Heart is borderline enlarged without pericardial effusion. Normal caliber thoracic aorta has moderate calcifications. Coronary artery calcifications and/or stents are present. No worrisome focal osseous lesion. CT ABDOMEN AND PELVIS: No free intraperitoneal air or fluid. Liver has no focal abnormality. Cholelithiasis present with associated pericholecystic fluid. There is now mild intrahepatic and extrahepatic biliary duct dilatation. The common bile duct measures up to 11 mm and has abrupt truncation at the ampulla. Spleen and pancreas are normal. No feature of acute pancreatitis. No adrenal mass. Stable severe atrophy of the left kidney which demonstrates mild enhancement. A large stone on the left extrarenal pelvis may be due to chronic obstruction. Right kidney enhances normally. The partially calcified right adnexal mass is stable at 5.8 x 5.6 cm. No new adnexal mass. Uterus is normal. No pericolonic inflammatory change or bowel obstruction. Appendix is normal. Stomach is decompressed. Atherosclerotic aorta is normal in caliber. No worrisome focal osseous lesion. IMPRESSION: 1. Imaging features are highly suspicious for acute cholecystitis. Additionally, there is dilation of the common bile duct and intrahepatic bile ducts which may be due to choledocholithiasis. Consider MRCP or ERCP for further evaluation. 2. No pneumonia. 3. Unchanged partially calcified right adnexal mass. Dictated by: Dictated on workstation # [id number] Dict: 01/09/231899 Trans: 01/09/231926 PJE [id number] Interpreted by: ANNITA SANCHEZ MD Electronically signed by: ANNITA SANCHEZ MD 01/09/231926 Assessment/Plan Assessment/Plan (1) Severe sepsis Status: Acute Assessment & Plan: - HDS this AM, continue IV antibiotics and gentle hydration, blood cultures + Ecoli 01/11: HDS, continue IV antibiotics 01/12: Continue to cover for PNA and UTI, was on levophed after surgery, off this AM (2) Bacteremia due to Escherichia coli Status: Acute (3) NSTEMI (non-ST elevated myocardial infarction) Status: Acute Assessment & Plan: - Cardiology consulted, patient previously recommended to get bypass surgery but did not have it done, currently asymptomatic, Type 2 HI due to severe sepsis 01/11: Echo this AM, denies chest pain (4) Cholecystitis, acute with cholelithiasis Status: Acute Assessment & Plan: - Dr Walker consulted, appreciate recommendations 01/11: Plan for surgery today, will follow post op 01/12: POD #1, pain control per surgery (5) Hypomagnesemia Status: Acute Assessment & Plan: - Replace and repeat in AM (6) HFrEF (heart failure with reduced ejection fraction) Status: Chronic (7) CAD (coronary artery disease) Status: Chronic Qualifiers: Qualified Codes: I25.10 - Atherosclerotic heart disease of [place] coronary artery without angina pectoris (8) HTN (hypertension) Status: Chronic Assessment & Plan: - hypotensive on admission, holding any BP meds Clinical Quality Measures DVT/VTE Risk/Contraindication: Contraindications-Pharm: Other *list below* Other: OR JODIE CELIS MD Jan 12, 2023 17:53
[2023-01-12] MEDS: VANCOMYCIN 1250 MG/NS 250 ML PREMIX IV SCH (20:18)
[2023-01-12 22:58] VITALS: BP 127/93
[2023-01-13] MEDS: NOREPINEPHRINE 8 MG/250 ML 250 ML IV SCH ×3 (01:50→18:53)
[2023-01-13] MEDS: RT-ALBUTEROL HFA 8.5 GM INHALER IH SCH ×6 (02:43→21:34)
[2023-01-13] MEDS: PIPERACILLIN SODIUM/TAZOBACTAM 4.5 GM in NS (IVPB) 100 ML IV SCH ×3 (03:53→20:16)
[2023-01-13] MEDS: ACETAMINOPHEN 325 MG TABLET PO PRN ×3 (05:24→16:18)
[2023-01-13] MEDS: MAGNESIUM 1 GM/100 ML IVPB 100 ML IV SCH ×5 (06:18→11:50)
[2023-01-13] MEDS: POTASSIUM CL 10MEQ/50ML IVPB 50 ML IV SCH (06:18)
[2023-01-13] MEDS: KCL 20 MEQ TAB (K-DUR) PO SCH (06:18)
--- NOTE | 2023-01-13 06:24 | Progress Note - Hospitalist ---
Subjective HPI/CC On Admission Date Seen by Provider: Jan 13, 2023 Time Seen by Provider: 11:00 Subjective/Events-last exam Very debilitated Wants to go home BiPAP and Levophed started last night Noted pain Review of Systems General: Fatigue, Malaise Focused Exam Lactate Level 01/12/23 07:41: Lactic Acid Level 1.09 Time of Focused Exam: 18:30 Objective Exam Vital Signs Vital Signs Date Time Temp Pulse Resp B/P (MAP) Pulse Ox O2 Delivery O2 Flow Rate FiO2 01/13/23 21:35 92 27 100 45.00 01/13/23 20:00 NIV Bilevel 45 01/13/23 18:00 124/84 (97) 01/13/23 17:23 38.0 Capillary Refill : Less Than 3 Seconds General Appearance: No Apparent Distress, WD/WN, Chronically ill Respiratory: Lungs Clear, Normal Breath Sounds Cardiovascular: Regular Rate, Rhythm Neurologic/Psychiatric: Alert, Oriented x3 Results/Procedures Lab Laboratory Tests 01/13/23 06:13 Patient resulted labs reviewed. Assessment/Plan Assessment and Plan Assess & Plan/Chief Complaint (1) Severe sepsis Status: Acute Assessment & Plan: - HDS this AM, continue IV antibiotics and gentle hydration, blood cultures + Ecoli (2) Bacteremia due to Escherichia coli Status: Acute (3) NSTEMI (non-ST elevated myocardial infarction) Status: Acute Assessment & Plan: - Cardiology consulted, patient previously recommended to get bypass surgery but did not have it done, currently asymptomatic, Type 2 ID due to severe sepsis (4) Cholecystitis, acute with cholelithiasis Status: Acute Assessment & Plan: - Dr Walker consulted, appreciate recommendations (5) Hypomagnesemia Status: Acute Assessment & Plan: - Replace and repeat in AM (6) HFrEF (heart failure with reduced ejection fraction) Status: Chronic (7) CAD (coronary artery disease) Status: Chronic (8) HTN (hypertension) Status: Chronic Assessment & Plan: - hypotensive on admission, holding any BP meds Critical Care Critically Ill Patient Clinical Quality Measures DVT/VTE Risk/Contraindication: Contraindications-Pharm: Other *list below* Other: OR MISSY ORTEGA DO Jan 13, 2023 06:24
--- NOTE | 2023-01-13 06:25 | Diagnostic Imaging Report ---
INDICATION: Sepsis Portable chest 5:27 AM Comparison made with previous day There are faint alveolar infiltrates throughout both lungs, worse on the right than on the left. There is no appreciable effusion. There is no pneumothorax. IMPRESSION: Bilateral alveolar infiltrates, worse on the right than on the left. These appear to have improved slightly compared to previous day's exam. Dictated by: Dictated on workstation # [id number]
[2023-01-13 06:32] LABS: HEMOGLOBIN 9.5 g/dL (11.5-16.0)
[2023-01-13 06:34] LABS: BASOPHILS % (AUTO) 1 % (0-10); EOSINOPHILS % (AUTO) 0 % (0-10); HEMATOCRIT 28 % (35-52); LYMPHOCYTES # (AUTO) 0.3 10^3/uL (1.0-4.0); LYMPHOCYTES % (AUTO) 11 % (12-44); MEAN CORPUSCULAR HEMOGLOBIN 32 pg (25-34); MEAN CORPUSCULAR HGB CONC 34 g/dL (32-36); MEAN CORPUSCULAR VOLUME 94 fL (80-99); MEAN PLATELET VOLUME 11.5 fL (9.0-12.2); MONOCYTES # (AUTO) 0.1 10^3/uL (0.0-1.0); MONOCYTES % (AUTO) 6 % (0-12); NEUTROPHILS # (AUTO) 1.9 10^3/uL (1.8-7.8); NEUTROPHILS % (AUTO) 81 % (42-75); PLATELET COUNT 82 10^3/uL (130-400); WHITE BLOOD COUNT 2.3 10^3/uL (4.3-11.0)
[2023-01-13 06:36] LABS: ALBUMIN 2.6 GM/DL (3.2-4.5); POTASSIUM 3.5 MMOL/L (3.6-5.0)
[2023-01-13 06:37] LABS: CALCIUM 8.1 MG/DL (8.5-10.1)
[2023-01-13 06:39] LABS: TOTAL PROTEIN 5.3 GM/DL (6.4-8.2)
[2023-01-13 06:40] LABS: BILIRUBIN,TOTAL 1.5 MG/DL (0.1-1.0)
[2023-01-13 06:42] LABS: PHOSPHORUS 2.2 MG/DL (2.3-4.7)
[2023-01-13 06:43] LABS: CREATININE SERUM 0.67 MG/DL (0.60-1.30)
[2023-01-13 06:45] LABS: MAGNESIUM 1.5 MG/DL (1.6-2.4)
[2023-01-13] MEDS: inSUlin ASPART (NovoLOG) 1 UNIT/0.01 ML (CHARGE PER UNIT) SC SCH ×4 (06:46→20:43)
[2023-01-13] MEDS: NS IV 1000 ML 1,000 ML IV SCH ×2 (06:48→07:01)
--- NOTE | 2023-01-13 07:27 | Progress Note - Surgery ---
LEROY CHAVEZ 01/13/23 0727: Subjective Subjective/Events-last exam Patient drowsy during assessment but appearing comfortable. She is on a regular diet and tolerating, denying abdominal pain or N/V/D; she does note that she her most recent BM was 3 days ago. She notes a nonproductive cough and states she was short of breath late last night, but at this time denies dyspnea, chest pain or palpitations. BiPAP was required for around two hours last night due to worsening hypoxia with a respiratory rate in the upper 40s; at this time she is back to 4.00 L NC with saturation in the mid 90s. She required another dose of Levophed last night, is currently off pressors. Review of Systems General: No Chills, No Night Sweats Pulmonary: Dyspnea Cardiovascular: No: Chest Pain, Palpitations Gastrointestinal: Constipation (no BM since Tuesday); No: Nausea, Vomiting, Abdominal Pain Genitourinary: No Dysuria, No Frequency Focused Exam Lactate Level 01/12/23 07:41: Lactic Acid Level 1.09 Time of Focused Exam: 18:30 Objective Exam Vital Signs Date Time Temp Pulse Resp B/P (MAP) Pulse Ox O2 Delivery O2 Flow Rate FiO2 01/13/23 06:50 99 Nasal Cannula 5.00 01/13/23 06:00 78 27 91/64 (73) 99 High Flow N/C 4.00 01/13/23 05:54 36.5 01/13/23 05:00 83 17 106/73 (84) 100 High Flow N/C 4.00 01/13/23 04:00 84 18 108/74 (85) 98 High Flow N/C 4.00 01/13/23 04:00 99 High Flow N/C 4.00 01/13/23 03:53 36.6 01/13/23 03:00 87 21 100/72 (81) 99 High Flow N/C 4.00 01/13/23 02:43 100 Nasal Cannula 5.00 01/13/23 02:00 82 13 111/77 (88) 99 NIV Bilevel 40.00 01/13/23 01:50 104 127/93 01/13/23 01:00 88 19 107/76 (86) 99 NIV Bilevel 40.00 01/13/23 01:00 90 01/13/23 00:34 36.8 01/13/23 00:00 92 27 108/80 (89) 99 NIV Bilevel 40.00 01/12/23 23:59 97 NIV Bilevel 40 01/12/23 23:08 36.8 01/12/23 23:00 93 21 107/75 (86) 97 NIV Bilevel 40.00 01/12/23 22:58 104 46 97 40.00 01/12/23 22:57 NIV Bilevel 40.00 01/12/23 22:46 High Flow N/C 10.00 01/12/23 22:13 98 Nasal Cannula 5.00 01/12/23 22:00 92 30 137/78 (97) 96 High Flow N/C 4.00 01/12/23 21:49 36.9 01/12/23 21:00 82 21 116/69 (85) 98 High Flow N/C 4.00 01/12/23 20:00 97 High Flow N/C 4.00 01/12/23 20:00 86 24 106/61 (76) 99 High Flow N/C 4.00 01/12/23 19:57 36.8 01/12/23 19:00 90 01/12/23 19:00 87 15 101/60 (74) 99 High Flow N/C 4.00 01/12/23 18:44 99 Nasal Cannula 5.00 01/12/23 18:00 85 12 106/61 (76) 98 High Flow N/C 4.00 01/12/23 17:29 37.2 01/12/23 17:00 95 13 94/57 (69) 97 High Flow N/C 4.00 01/12/23 16:37 37.9 01/12/23 16:34 37.9 01/12/23 16:00 97 High Flow N/C 4.00 01/12/23 16:00 100 13 85/66 (72) 98 High Flow N/C 4.00 01/12/23 15:29 107/80 01/12/23 15:00 99 42 102/71 (81) 100 High Flow N/C 4.00 01/12/23 14:50 99 Nasal Cannula 5.00 01/12/23 14:00 88 35 104/61 (75) 100 High Flow N/C 4.00 01/12/23 13:00 83 33 89/73 (78) 100 High Flow N/C 4.00 01/12/23 12:10 84 01/12/23 12:00 86 9 91/66 (74) 100 High Flow N/C 4.00 01/12/23 12:00 96 High Flow N/C 4.00 01/12/23 11:40 36.9 01/12/23 11:00 89 24 87/68 (74) 97 High Flow N/C 4.00 01/12/23 10:48 97 Nasal Cannula 4.00 01/12/23 10:21 36.8 01/12/23 10:00 89 11 86/64 (71) 94 High Flow N/C 4.00 01/12/23 09:00 97 40 85/62 (70) 91 High Flow N/C 4.00 01/12/23 08:42 38.7 01/12/23 08:08 38.7 01/12/23 08:00 98 7 102/74 (83) 94 High Flow N/C 4.00 01/12/23 08:00 96 High Flow N/C 4.00 01/12/23 07:38 100 I & O 01/13/23 07:00 Intake Total 1855 ml Output Total 1550 ml Balance 305 ml Capillary Refill : Less Than 3 Seconds General Appearance: No Apparent Distress, Chronically ill HEENT: Moist Mucous Membranes Neck: Non Tender, Supple Respiratory: Chest Non Tender, No Accessory Muscle Use, No Respiratory Distress, Decreased Breath Sounds (throughout right lobe and in left lower lung base; improved compared to previous examination) Cardiovascular: Regular Rate, Rhythm, No Murmur Gastrointestinal: normal bowel sounds, soft, hernia (small umbilical), other (incisions from surgery, healing well) Extremity: No Calf Tenderness, No Pedal Edema Neurologic/Psychiatric: Alert, Oriented x3 Skin: Normal Color, Warm/Dry Lymphatic: Other (mild cervical adenopathy) Results Lab Laboratory Tests 01/12/23 07:41: Lactic Acid Level 1.09 01/12/23 07:55: Urine Color YELLOW, Urine Clarity CLEAR, Urine pH 6.0, Urine Specific [place] 1.025H, Urine Protein 2+H, Urine Glucose (UA) NEGATIVE, Urine Ketones TRACEH, Urine Nitrite NEGATIVE, Urine Bilirubin NEGATIVE, Urine Urobilinogen 0.2, Urine Leukocyte Esterase NEGATIVE, Urine RBC (Auto) 2+H, Urine RBC 0-2, Urine WBC RARE, Urine Crystals PRESENTH, Urine Amorphous Sediment MOD LEONARDO URATESH, Urine Bacteria MODERATEH, Urine Casts PRESENT, Urine Hyaline Casts 0-2H, Urine Mucus NEGATIVE, Urine Culture Indicated YES 01/12/23 10:06: Glucometer 166H 01/12/23 16:20: Glucometer 135H 01/13/23 06:13: White Blood Count 2.3L, Red Blood Count 2.98L, Hemoglobin 9.5#L, Hematocrit 28L, Mean Corpuscular Volume 94, Mean Corpuscular Hemoglobin 32, Mean Corpuscular Hemoglobin Concent 34, Red Cell Distribution Width 13.1, Platelet Count 82L, Mean Platelet Volume 11.5, Immature Granulocyte % (Auto) 0, Neutrophils (%) (Auto) 81H, Lymphocytes (%) (Auto) 11L, Monocytes (%) (Auto) 6, Eosinophils (%) (Auto) 0, Basophils (%) (Auto) 1, Neutrophils # (Auto) 1.9, Lymphocytes # (Auto) 0.3L, Monocytes # (Auto) 0.1, Eosinophils # (Auto) 0.0, Basophils # (Auto) 0.0, Immature Granulocyte # (Auto) 0.0, Percent Immature Platelet Fraction 5.5, Sodium Level 137, Potassium Level 3.5L, Chloride Level 112H, Carbon Dioxide Level 15L, Anion Gap 10, Blood Urea Nitrogen 10, Creatinine 0.67, Estimat Glomerular Filtration Rate 100, BUN/Creatinine Ratio 15, Glucose Level 115H, Calcium Level 8.1L, Corrected Calcium 9.2, Phosphorus Level 2.2L, Magnesium Level 1.5L, Total Bilirubin 1.5H, Aspartate Amino Transf (AST/SGOT) 56H, Alanine Aminotransferase (ALT/SGPT) 171H, Alkaline Phosphatase 204H, Total Protein 5.3L, Albumin 2.6L Microbiology 01/10/23 MRSA Screen - Final, Complete MRSA not isolated 01/09/23 Blood Culture - Preliminary, Resulted Escherichia coli See Comments Assessment/Plan Assessment/Plan Assessment/Plan POD #2 s/p laparoscopic cholecystectomy for cholecystitis with cholelilithiasis and Choledochalithiasis Elevated liver enzymes - slightly improved compared to yesterday Direct hyperbilirubinemia - improving PNA vs Edema - opacifications CXR on 01/13 improved compared to 01/12 CXR Hypoxia - BiPAP briefly required last night; currently on 4.00 L nasal canula Hypotension - Levophed briefly required last night; currently off pressors Leukopenia - WBC 2.3 today Hypomagnesemia - resolved Diarrhea - resolved Elevated troponin (0.063 on 01/09, 0.2 on 01/10, 0.118 01/12); cardiology suspects Type II NSTEMI related to E. coli bacteremia CAD - 3 stents placed in 2009; CABG was recommended by cardiology based on catherization in 2021 HF with EF 30-35% - per 2021 echocardiogram; results of Echo done on 01/11 pending IDDM Continue zosyn. Clinical Quality Measures DVT/VTE Risk/Contraindication: Contraindications-Pharm: Other *list below* Other: ESPERANZA SHARMA DO 01/13/23 1535: Subjective Time Seen by a Provider: 12:42 Subjective/Events-last exam Pt seen and examined, no new complaints. She again needed some O2 and Levo for a few hours last night. Denies abdominal pain. Review of Systems Pulmonary: Dyspnea Cardiovascular: No: Chest Pain, Palpitations Gastrointestinal: Constipation (no BM since Tuesday); No: Nausea, Vomiting, Abdominal Pain Objective Exam General Appearance: No Apparent Distress, Chronically ill HEENT: Moist Mucous Membranes Respiratory: Chest Non Tender, No Accessory Muscle Use, No Respiratory Distress, Decreased Breath Sounds (throughout right lobe and in left lower lung base; improved compared to previous examination) Cardiovascular: Regular Rate, Rhythm Gastrointestinal: normal bowel sounds, soft, hernia (small umbilical), other (incisions from surgery, healing well) Extremity: No Calf Tenderness, No Pedal Edema Neurologic/Psychiatric: Alert, Oriented x3 Skin: Normal Color Assessment/Plan Assessment/Plan Assessment/Plan Choledochalithiasis - without obstruction, will need ERCP POD #2 s/p laparoscopic cholecystectomy for cholecystitis with cholelilithiasis Elevated liver enzymes - slightly improved compared to yesterday Direct hyperbilirubinemia - improving PNA vs Edema - opacifications CXR on 01/13 improved compared to 01/12 CXR, Continue Zosyn Hypoxia - BiPAP briefly required last night; currently on 4.00 L nasal canula Hypotension - Levophed briefly required last night; currently off pressors Leukopenia - WBC 2.3 today Hypomagnesemia - resolved Diarrhea - resolved Elevated troponin (0.063 on 01/09, 0.2 on 01/10, 0.118 01/12); cardiology suspects Type II NSTEMI related to E. coli bacteremia CAD - 3 stents placed in 2009; CABG was recommended by cardiology based on catherization in 2021 HF with EF 30-35% - per 2021 echocardiogram; results of Echo done on 01/11 pending IDDM I called [facility] to try and get her transferred for ERCP, but they are on diversion. She is improving so the ERCP is not urgent or emergent at this time. Supervisory-Addendum Brief Verification & Attestation Participated in pt care: history, MDM, physical Personally performed: exam, history, MDM, supervision of care Care discussed with: Medical Student Procedures: n/a Verification and Attestation of Medical Student E/M Service A medical student performed and documented this service. I then reviewed and verified all information documented by the medical student and made modifications to such information, when appropriate. I personally performed a physical exam, medical decision making and then discussed any differences between the notes and made revisions as necessary to create one note. Esperanza Fragoso , 01/13/23 , 15:35 LEROY CHAVEZ Jan 13, 2023 07:27 ESPERANZA FRAGOSO DO Jan 13, 2023 15:35
[2023-01-13] MEDS: VANCOMYCIN 1250 MG/NS 250 ML PREMIX IV SCH ×2 (08:32→20:16)
[2023-01-13] MEDS: PANTOPRAZOLE 40 MG (PROTONIX) VIAL IV SCH (08:32)
[2023-01-13] MEDS: SENNOSIDES 8.6 MG (SENOKOT) TAB PO SCH ×2 (08:33→20:46)
[2023-01-13] MEDS: DOCUSATE SODIUM 100 MG (COLACE) CAP PO SCH ×2 (08:33→20:46)
[2023-01-13] MEDS: CLOPIDOGREL 75 MG (PLAVIX) TABLET PO SCH (08:33)
[2023-01-13] MEDS ORDERED: KCL 20 MEQ TAB (K-DUR) PO ONE (09:00)
--- NOTE | 2023-01-13 09:09 | Tele-ICU Progress Note ---
Subjective Date Seen by a Provider: Jan 13, 2023 Time Seen by a Provider: 09:07 Subjective/Events-last exam (Tele-ICU Physician , Progress Note ) Service provided via interactive audio and video telecommunications E-CARE system to a patient admitted to ICU bed in [facility]. Patient is seen today due to persistent need of ICU care Available chart/ vitals / labs / Images reviewed Video assessment done using teleICU camera, rest of exam as per RN Discussed with RN Events overnight : BIPAP a and levo 2.5 h Afebrile hemodynamically stable Respiratory - 4-2 L NC I/O = even Drips: ns 125 Pressors- LEVO off 3 am Hospital course: (01/09) 62F Admitted w/ weakness, dehydration, acute cholecystitis w/cholelithiasis, cholangitis. Hypotensive in ER - sepsis protocol initiated (01/10) MRCP shows multiple stones w/i distal CBD and cholelitiasis with GB wall thickening and edema. 01/11- OR ,s/p lap cholecystectomy with intraoperative cholangiogram ,was on levophed transiently and 15 L o2 post op 01/13 -overnigt BIPAP a and levo 2.5 h A/P acute cholecystitis w/cholelithiasis, cholangitis -(01/10) MRCP shows multiple stones w/i distal CBD and cholelitiasis with GB wall thickening and edema. - Zosyn 01/09 -->currecnt , vanco 01/12--> -- s/p lap cholecystectomy with intraoperative cholangiogram 01/11 ( She will need an ERCP as per sx ) Hypotension / Sepsis with Escherichia coli bacteremia due to above - sepsis protocol initiated, responded to fluid , -was on levophed transiently 01/11 and 01/12 night - OFF now - cont abx RIGHT PNA ( new 01/11 , CTchest 01/09 - right lung is clear ) - CXR is better today -= cont zosyn , vanco 01/12 Hypoxia, was on 15 L post op . WORSENING 01/11 - back to 2 l NC 01/13 - with COPD and PNA and VO - was given bumex x1 01/11 - STOP IVF - on 4 L now , CXR is improving on right side ICM with known 3-vessel severe CAD -TTE demonstrates EF 40-45% with akinetic apex, hypokinesis of anteroseptum, grade 3 Diastolic dysfunciton and mild MS - as per cards - on plavix -STOP IVF Thrombocytopenia 111 01/11 ( not on heparins) - stable - on plavix ( on hold for sx) DM II - ISS Seizure dz - cont Keppra IV Met acidosis on BNP - follow Lines : periph , (Central Line Necessity Reviewed) Lang: 01/10 OG: Nutrition: as per sx Analgesia: Anxiety/ delirium VTE Prophylaxis: scd , start shantanu when ok with Sx and PLT stable Stress Ulcer Prophylaxis: na Plans in collaboration with bedside consultants and IM MDs. Discussed with RN to reach out if any questions or concerns Case and care discussed with the multidisciplinary (MD, DORYS, RN, PharmD, Nutrition and Respiratory Therapy) ICU service earlier on rounds. A total of 31 minutes of critical care time was devoted to this patient today, required to treat and/or prevent further deterioration of critical care condition ( as above ) . Sepsis Event Evaluation Height, Weight, BMI Height: '" Weight: 146lbs. oz. 66.021284cv; 21.02 BMI Method:Stated Focused Exam Lactate Level 01/12/23 07:41: Lactic Acid Level 1.09 Time of Focused Exam: 18:30 Exam Exam Patient acknowledged, consented, and participated in this virtual visit which was conducted using real time audio/video Vital Signs Date Time Temp Pulse Resp B/P (MAP) Pulse Ox O2 Delivery O2 Flow Rate FiO2 01/13/23 08:05 High Flow N/C 2.00 01/13/23 07:56 36.7 High Flow N/C 4.00 01/13/23 06:50 99 Nasal Cannula 5.00 01/13/23 06:00 78 27 91/64 (73) 99 High Flow N/C 4.00 01/13/23 05:54 36.5 01/13/23 05:00 83 17 106/73 (84) 100 High Flow N/C 4.00 01/13/23 04:00 84 18 108/74 (85) 98 High Flow N/C 4.00 01/13/23 04:00 99 High Flow N/C 4.00 01/13/23 03:53 36.6 01/13/23 03:00 87 21 100/72 (81) 99 High Flow N/C 4.00 01/13/23 02:43 100 Nasal Cannula 5.00 01/13/23 02:00 82 13 111/77 (88) 99 NIV Bilevel 40.00 01/13/23 01:50 104 127/93 01/13/23 01:00 88 19 107/76 (86) 99 NIV Bilevel 40.00 01/13/23 01:00 90 01/13/23 00:34 36.8 01/13/23 00:00 92 27 108/80 (89) 99 NIV Bilevel 40.00 01/12/23 23:59 97 NIV Bilevel 40 01/12/23 23:08 36.8 01/12/23 23:00 93 21 107/75 (86) 97 NIV Bilevel 40.00 01/12/23 22:58 104 46 97 40.00 01/12/23 22:57 NIV Bilevel 40.00 01/12/23 22:46 High Flow N/C 10.00 01/12/23 22:13 98 Nasal Cannula 5.00 01/12/23 22:00 92 30 137/78 (97) 96 High Flow N/C 4.00 01/12/23 21:49 36.9 01/12/23 21:00 82 21 116/69 (85) 98 High Flow N/C 4.00 01/12/23 20:00 97 High Flow N/C 4.00 01/12/23 20:00 86 24 106/61 (76) 99 High Flow N/C 4.00 01/12/23 19:57 36.8 01/12/23 19:00 90 01/12/23 19:00 87 15 101/60 (74) 99 High Flow N/C 4.00 01/12/23 18:44 99 Nasal Cannula 5.00 01/12/23 18:00 85 12 106/61 (76) 98 High Flow N/C 4.00 01/12/23 17:29 37.2 01/12/23 17:00 95 13 94/57 (69) 97 High Flow N/C 4.00 01/12/23 16:37 37.9 01/12/23 16:34 37.9 01/12/23 16:00 97 High Flow N/C 4.00 01/12/23 16:00 100 13 85/66 (72) 98 High Flow N/C 4.00 01/12/23 15:29 107/80 01/12/23 15:00 99 42 102/71 (81) 100 High Flow N/C 4.00 01/12/23 14:50 99 Nasal Cannula 5.00 01/12/23 14:00 88 35 104/61 (75) 100 High Flow N/C 4.00 01/12/23 13:00 83 33 89/73 (78) 100 High Flow N/C 4.00 01/12/23 12:10 84 01/12/23 12:00 86 9 91/66 (74) 100 High Flow N/C 4.00 01/12/23 12:00 96 High Flow N/C 4.00 01/12/23 11:40 36.9 01/12/23 11:00 89 24 87/68 (74) 97 High Flow N/C 4.00 01/12/23 10:48 97 Nasal Cannula 4.00 01/12/23 10:21 36.8 01/12/23 10:00 89 11 86/64 (71) 94 High Flow N/C 4.00 I & O 01/13/23 07:00 Intake Total 1855 ml Output Total 1550 ml Balance 305 ml Height & Weight Height: '" Weight: 146lbs. oz. 66.717389jv; 21.02 BMI Method:Stated General Appearance: No Apparent Distress, Chronically ill HEENT: Moist Mucous Membranes Neck: Non Tender, Supple Respiratory: Chest Non Tender, No Accessory Muscle Use, No Respiratory Distress, Decreased Breath Sounds (throughout right lobe and in left lower lung base; improved compared to previous examination) Cardiovascular: Regular Rate, Rhythm, No Murmur Capillary Refill: Less Than 3 Seconds Gastrointestinal: normal bowel sounds, soft, hernia (small umbilical), other (incisions from surgery, healing well) Extremity: No Calf Tenderness, No Pedal Edema Neurologic/Psychiatric: Alert, Oriented x3 Skin: Normal Color, Warm/Dry Lymphatic: Other (mild cervical adenopathy) Results Lab Laboratory Tests 01/11/23 20:46 01/12/23 04:44 01/13/23 06:13 Assessment/Plan Assessment/Plan 1 WISAM HEWITT MD Jan 13, 2023 09:09
--- NOTE | 2023-01-13 09:30 | Physical Therapy Evaluation ---
PT Evaluation-General Medical Diagnosis Admission Date Jan 10, 2023 at 06:14 Medical Diagnosis: cholecystitis Onset Date: Jan 10, 2023 Therapy Diagnosis Therapy Diagnosis: generalized weakness/debility Height/Weight Weight (Pounds): 146 Precautions Precautions/Isolations: Fall Prevention, Standard Precautions Referral Physician: Demetrice Reason for Referral: Evaluation/Treatment Medical History Pertinent Medical History: CABG, CAD, COPD, DM, Heart Failure, HTN, PVD, Renal Insufficiency Current History EMS from [place] due to AMS/not feeling well Social History Home: [facility] Prior Prior Level of Function SCALE: Activities may be completed with or without assistive devices. 8-Pwqsbtxjsy-xgdzbtb completes the activity by him/herself with no assistance from a helper. 5-Set-up or Clean-up Assistance-helper sets up or cleans up; patient completes activity. [place] assists only prior to or following the activity. 4-Supervision or Touching Assistance-helper provides verbal cues and/or touching/steadying and/or contact guard assistance as patient completes activity. Assistance may be provided throughout the activity or intermittently. 3-Partial/Moderate Assistance-helper does LESS THAN HALF the effort. [place] lifts, holds or supports trunk or limbs, but provides less than half the effort. 2-Substantial/Maximal Assistance-helper does MORE THAN HALF the effort. [place] lifts or holds trunk or limbs and provides more than half the effort. 0-Sptaqudcb-hoxcql does ALL the effort. Patient does none of the effort to compl ete the activity. Or, the assistance of 2 or more helpers is required for the patient to complete the activity. If activity was not attempted, code reason: 7-Patient Refused. 9-Not Applicable-not attempted and the patient did not perform the activity before the current illness, exacerbation or injury. 10-Not Attempted due to Environmental Limitations-(lack of equipment, weather restraints, etc.). 88-Not Attempted due to Medical Conditions or Safety Concerns. Bed Mobility: 6 Transfers (B,C,W/C): 6 Gait: 6 Indoor Mobility (Ambulation): Independent Prior Devices Use: None per patient report PT Evaluation-Current Subjective Patient agrees to PT. Objective Patient Orientation: Person Attachments: Central Line, Oxygen, Lang Catheter ROM/Strength ROM Lower Extremities bilateral LE WFL Strength Lower Extremities 3/5 grossly bilateral LE all planes Integumentary/Posture Bladder Incontinence: Lang Cath Posture WFL Neuromuscular (Tone, Coordination, Reflexes) grossly intact Sensory Vision: Functional Hearing: Functional Transfers Lying to Sitting/Side of Bed(Q: 3 Sit to Stand (QC): 3 (mod assist) Chair/Wdo-ui-Rypsr Xfer(QC): 3 (mod assist) Gait Does the Patient Walk?: No and Walking Goal IS indicated Mode of Locomotion: Walk Anticipated Mode of Locomotion: Walk Walk 10 feet (QC): 88 Walk 50 ft with 2 Turns(QC): 88 Walk 150 ft (QC): 88 Gait Assistive Device: FWW Balance Sitting Static: Normal Sitting Dynamic: Normal Standing Static: Poor Standing Dynamic: Poor Assessment/Needs Patient will benefit from skilled PT to address functional strength and mobility to improve current LOF. Patient currently requires mod assist with all mobility. Rehab Potential: Fair PT Fpc Goals Toe Trimmer Goals PT Toe Trimmer Goals Time Frame: Jan 29, 2023 Roll Left & Right (QC): 6 Sit to Lying (QC): 6 Lying-Sitting on Side/Bed(QC): 6 Sit to Stand (QC): 6 Chair/Gpf-gl-Fgqiz Xfer(QC): 6 Toilet Transfer (QC): 6 Walk 10 feet (QC): 4 Walk 50ft with 2 Turns (QC): 4 Walk 150 ft (QC): 4 PT Plan Problem List Problem List: Activity Tolerance, Functional Strength, Safety, Balance, Gait, Transfer, Bed Mobility Treatment/Plan Treatment Plan: Continue Plan of Care Treatment Plan: Bed Mobility, Education, Functional Activity Roya, Functional Strength, Gait, Safety, Therapeutic Exercise, Transfers Treatment Duration: Jan 29, 2023 Frequency: 6 times per week Estimated Hrs Per Day: .25 hour per day Patient and/or Family Agrees t: Yes Time Time In: 736 Time Out: 751 DATE: Jan 13, 2023 Total Billed Treatment Time: 15 Total Billed Treatment 1 visit [facility] 15 min SORAYA PICKARD PT Jan 13, 2023 09:30
[2023-01-13 17:08] VITALS: BP 135/123
--- NOTE | 2023-01-13 17:13 | Diagnostic Imaging Report ---
CHEST 1 VIEW, AP/PA ONLY Indication: Respiratory distress Comparison: 01/13/2023 Findings: Right greater than left pulmonary consolidations have not changed. Small pleural effusions are similar. No pneumothorax. Stable cardiac silhouette. Impression: 1. No change in bilateral consolidations that may be due to pneumonia. ARDS or asymmetric edema may give this appearance. Dictated by: Dictated on workstation # [id number]
[2023-01-13 17:14] LABS: ABG BASE EXCESS -9.6 MMOL/L (-2.5-2.5); ABG OXYGEN SATURATION 91 % (94-100); ABG PCO2 41 MMHG (35-45); ABG PO2 72 MMHG (79-93); ABG TCO2 17.6 MMOL/L (21.0-31.0)
[2023-01-13] MEDS ORDERED: BUMETANIDE 1 MG/4 ML (BUMEX) VIAL IV NR (17:15)
[2023-01-13 17:17] LABS: ABG PH 7.23 (7.37-7.43); ALLENS TEST P; VENTILATOR NO
[2023-01-13] MEDS ORDERED: BUMETANIDE 1 MG/4 ML (BUMEX) VIAL ONE (17:19)
[2023-01-13] MEDS ORDERED: SODIUM BICARB 8.4% 50 MEQ/50 ML (ABBOTT) SYR IV NR (17:30)
[2023-01-13 18:28] VITALS: BP 124/84
[2023-01-13] MEDS: HYDROmorphone 2 MG/ML VIAL (DILAUDID) IV PRN (18:32)
[2023-01-13 21:35] VITALS: BP 112/71
[2023-01-14 02:41] VITALS: BP 125/86
[2023-01-14] MEDS: RT-ALBUTEROL HFA 8.5 GM INHALER IH SCH ×6 (02:41→22:25)
[2023-01-14] MEDS: PIPERACILLIN SODIUM/TAZOBACTAM 4.5 GM in NS (IVPB) 100 ML IV SCH ×3 (04:03→20:22)
[2023-01-14 05:17] LABS: BASOPHILS % (AUTO) 0 % (0-10); EOSINOPHILS % (AUTO) 0 % (0-10); HEMOGLOBIN 10.8 g/dL (11.5-16.0); MEAN CORPUSCULAR VOLUME 93 fL (80-99); MONOCYTES # (AUTO) 0.2 10^3/uL (0.0-1.0); MONOCYTES % (AUTO) 4 % (0-12)
[2023-01-14 05:18] LABS: HEMATOCRIT 32 % (35-52); LYMPHOCYTES # (AUTO) 0.4 10^3/uL (1.0-4.0); LYMPHOCYTES % (AUTO) 7 % (12-44); MEAN CORPUSCULAR HEMOGLOBIN 32 pg (25-34); MEAN CORPUSCULAR HGB CONC 34 g/dL (32-36); MEAN PLATELET VOLUME 11.6 fL (9.0-12.2); NEUTROPHILS % (AUTO) 88 % (42-75); PLATELET COUNT 118 10^3/uL (130-400); WHITE BLOOD COUNT 5.7 10^3/uL (4.3-11.0)
[2023-01-14 05:43] LABS: ALBUMIN 2.7 GM/DL (3.2-4.5); BILIRUBIN,TOTAL 1.4 MG/DL (0.1-1.0); CALCIUM 8.7 MG/DL (8.5-10.1); CREATININE SERUM 0.74 MG/DL (0.60-1.30); MAGNESIUM 1.6 MG/DL (1.6-2.4); PHOSPHORUS 2.4 MG/DL (2.3-4.7); POTASSIUM 3.9 MMOL/L (3.6-5.0); TOTAL PROTEIN 5.6 GM/DL (6.4-8.2)
[2023-01-14 05:49] LABS: VANCOMYCIN,TROUGH 24.6 UG/ML (10.0-20.0)
--- NOTE | 2023-01-14 05:49 | Progress Note - Hospitalist ---
Subjective HPI/CC On Admission Date Seen by Provider: Jan 14, 2023 Time Seen by Provider: 10:00 Subjective/Events-last exam Patient feels better she reports Hypoxia and hypotension every night noted CXR worse Abx maintained ERCP needed but not urgently Patient lives in [place] at 62yo due to chronic debility Review of Systems General: Fatigue, Malaise Focused Exam Lactate Level 01/12/23 07:41: Lactic Acid Level 1.09 Time of Focused Exam: 18:30 Objective Exam Vital Signs Vital Signs Date Time Temp Pulse Resp B/P (MAP) Pulse Ox O2 Delivery O2 Flow Rate FiO2 01/14/23 21:00 80 87/53 (64) 97 High Flow N/C 3.00 01/14/23 20:04 36.9 01/14/23 13:00 39 01/14/23 00:00 45 Capillary Refill : Less Than 3 Seconds General Appearance: No Apparent Distress, WD/WN, Chronically ill, Thin Respiratory: Lungs Clear, No Accessory Muscle Use, No Respiratory Distress, Decreased Breath Sounds Cardiovascular: Regular Rate, Rhythm Neurologic/Psychiatric: Alert, Oriented x3 Results/Procedures Lab Laboratory Tests 01/14/23 05:10 Patient resulted labs reviewed. Assessment/Plan Assessment and Plan Assess & Plan/Chief Complaint (1) Severe sepsis Status: Acute Assessment & Plan: - HDS this AM, continue IV antibiotics and gentle hydration, blood cultures + Ecoli (2) Bacteremia due to Escherichia coli Status: Acute (3) NSTEMI (non-ST elevated myocardial infarction) Status: Acute Assessment & Plan: - Cardiology consulted, patient previously recommended to get bypass surgery but did not have it done, currently asymptomatic, Type 2 KS due to severe sepsis (4) Cholecystitis, acute with cholelithiasis Status: Acute Assessment & Plan: - Dr Walker consulted, appreciate recommendations (5) Hypomagnesemia Status: Acute Assessment & Plan: - Replace and repeat in AM (6) HFrEF (heart failure with reduced ejection fraction) Status: Chronic (7) CAD (coronary artery disease) Status: Chronic (8) HTN (hypertension) Status: Chronic Assessment & Plan: - hypotensive on admission, holding any BP meds Plan: ERCP soon She will return to [place] Critical Care Critically Ill Patient Clinical Quality Measures DVT/VTE Risk/Contraindication: Contraindications-Pharm: Other *list below* Other: OR MISSY ORTEGA DO Jan 14, 2023 05:49
[2023-01-14] MEDS: MAGNESIUM 1 GM/100 ML IVPB 100 ML IV SCH ×6 (06:17→09:33)
[2023-01-14] MEDS: inSUlin ASPART (NovoLOG) 1 UNIT/0.01 ML (CHARGE PER UNIT) SC SCH ×4 (06:17→21:15)
[2023-01-14] MEDS: POTASSIUM CL 10MEQ/50ML IVPB 50 ML IV SCH ×4 (06:17→08:37)
[2023-01-14] MEDS: KCL 20 MEQ TAB (K-DUR) PO SCH (06:17)
--- NOTE | 2023-01-14 06:51 | Diagnostic Imaging Report ---
INDICATION: Sepsis Portable chest 3:36 AM There is diffuse alveolar infiltrate in the right lung with some infiltrate at the left lung base. Both of these appear slightly improved compared to the previous day. There is no effusion. IMPRESSION: Improving pulmonary infiltrates. These are worse on the right than on the left. Dictated by: Dictated on workstation # [id number]
[2023-01-14] MEDS ORDERED: TROUGH ORDER-PHARMACY XX ONE (07:00)
[2023-01-14] MEDS: NOREPINEPHRINE 8 MG/250 ML 250 ML IV SCH ×2 (07:42→10:37)
--- NOTE | 2023-01-14 07:45 | Tele-ICU Progress Note ---
Subjective Date Seen by a Provider: Jan 14, 2023 Time Seen by a Provider: 07:40 Subjective/Events-last exam (Tele-ICU Physician , Progress Note ) Service provided via interactive audio and video telecommunChargePoint, Inc. E-CARE system to a patient admitted to ICU bed in [facility]. Patient is seen today due to persistent need of ICU care Available chart/ vitals / labs / Images reviewed Video assessment done using teleICU camera, rest of exam as per RN Discussed with RN Events overnight : Pt admitted with septic shock from GB sepsis, also has right PNA, on IV Zosyn Has 3 vessel CAD with 40% LVER WBC up to 5.7, LFT AST 131, T Bili 1.4, CXR shows extensive infiltrate in right lung, from 01/09 growing E Coli in blood x 2 BP has been low 70/50, last night, 95/76, levo 0.03 Sepsis Event Evaluation Height, Weight, BMI Height: '" Weight: 146lbs. oz. 66.251017al; 26.82 BMI Method:Stated Focused Exam Lactate Level 01/12/23 07:41: Lactic Acid Level 1.09 Time of Focused Exam: 18:30 Exam Exam Patient acknowledged, consented, and participated in this virtual visit which was conducted using real time audio/video Vital Signs Date Time Temp Pulse Resp B/P (MAP) Pulse Ox O2 Delivery O2 Flow Rate FiO2 01/14/23 06:57 Nasal Cannula 3.00 01/14/23 06:53 99 Nasal Cannula 4.00 01/14/23 06:00 94 28 106/80 (89) 100 High Flow N/C 4.00 01/14/23 05:00 92 34 113/81 (92) 99 High Flow N/C 4.00 01/14/23 04:00 93 17 114/86 (95) 98 High Flow N/C 4.00 01/14/23 04:00 100 High Flow N/C 4.00 01/14/23 04:00 36.5 01/14/23 03:30 High Flow N/C 4.00 01/14/23 03:00 92 13 121/86 (98) 98 NIV Bilevel 45.00 01/14/23 02:41 89 26 99 45.00 01/14/23 02:00 89 22 124/86 (99) 100 NIV Bilevel 45.00 01/14/23 01:00 88 20 116/81 (93) 100 NIV Bilevel 45.00 01/14/23 01:00 90 01/14/23 00:00 100 NIV Bilevel 45 01/14/23 00:00 36.2 01/14/23 00:00 89 13 116/81 (93) 100 NIV Bilevel 45.00 01/13/23 23:00 88 29 104/70 (81) 100 NIV Bilevel 45.00 01/13/23 22:00 90 26 103/71 (82) 100 NIV Bilevel 45.00 01/13/23 21:35 92 27 100 45.00 01/13/23 21:00 96 29 101/73 (82) 100 NIV Bilevel 45.00 01/13/23 20:00 95 NIV Bilevel 45 01/13/23 20:00 95 25 106/70 (82) 98 NIV Bilevel 45.00 01/13/23 19:00 117 14 100/68 (79) 97 NIV Bilevel 45.00 01/13/23 19:00 117 01/13/23 18:28 130 55 95 45.00 01/13/23 18:00 130 63 124/84 (97) 95 NIV Bilevel 45.00 01/13/23 17:23 38.0 NIV Bilevel 45.00 01/13/23 17:10 38.0 01/13/23 17:08 144 60 92 45.00 01/13/23 17:00 147 61 133/95 (108) 93 NIV Bilevel 40.00 01/13/23 16:22 39.3 NIV Bilevel 40.00 01/13/23 16:18 39.3 01/13/23 16:15 93 High Flow N/C 2.00 01/13/23 16:00 112 53 139/95 (110) 99 High Flow N/C 2.00 01/13/23 15:03 94 Nasal Cannula 2.00 01/13/23 15:00 94 39 126/88 (101) 94 High Flow N/C 2.00 01/13/23 14:00 88 27 120/80 (93) 97 High Flow N/C 2.00 01/13/23 13:00 86 34 110/85 (93) 95 High Flow N/C 2.00 01/13/23 13:00 87 01/13/23 12:10 37.5 01/13/23 12:00 89 37 91/62 (72) 96 High Flow N/C 2.00 01/13/23 12:00 97 High Flow N/C 2.00 01/13/23 11:00 89 19 103/70 (81) 93 High Flow N/C 2.00 01/13/23 10:56 36.8 01/13/23 10:12 37.0 01/13/23 10:08 97 Nasal Cannula 2.00 01/13/23 10:00 80 21 110/74 (86) 97 High Flow N/C 2.00 01/13/23 09:00 80 30 93/65 (74) 97 High Flow N/C 2.00 01/13/23 08:05 High Flow N/C 2.00 01/13/23 08:05 99 High Flow N/C 2.00 01/13/23 08:00 83 29 99/69 (79) 99 High Flow N/C 4.00 01/13/23 07:56 36.7 High Flow N/C 4.00 I & O 01/14/23 07:00 Intake Total 2995 ml Output Total 1925 ml Balance 1070 ml Height & Weight Height: '" Weight: 146lbs. oz. 66.444575wj; 26.82 BMI Method:Stated General Appearance: No Apparent Distress, WD/WN, Chronically ill HEENT: Moist Mucous Membranes Neck: Non Tender, Supple Respiratory: Lungs Clear, Normal Breath Sounds, Wheezing Cardiovascular: Regular Rate, Rhythm Capillary Refill: Less Than 3 Seconds Gastrointestinal: normal bowel sounds, soft, hernia (small umbilical), other (tender right upper quadrant, hyperacitve) Extremity: No Calf Tenderness, No Pedal Edema, Pedal Edema Neurologic/Psychiatric: Alert, Oriented x3 Skin: Normal Color Lymphatic: Other (mild cervical adenopathy) Results Lab Laboratory Tests 01/13/23 06:13 01/14/23 05:10 Assessment/Plan Assessment/Plan On IV Zosyn for E Coli sepsis from GB, will continue, Will continue on 3 lpm NC, On IV Kepra for Sz disorder, will continue Did not get out of bed today, klever try today if off pressors RR has increased, SpO2 98 but spont RR is in high 20's, size of PNA, needs to be watched closely, May need to go back to BiPAP Reivew of CT chest from 01/19 does not show these changes Spoke with Dr Alex. would check swallow looking for aspiration Critical Care: Critically Ill Patient Time spent with patient (mins): 25 CHONG UNDERWOOD MD Jan 14, 2023 07:45
--- NOTE | 2023-01-14 07:54 | Progress Note - Surgery ---
LEROY CHAVEZ 01/14/23 0754: Subjective Date Seen by a Provider: Jan 14, 2023 Time Seen by a Provider: 07:20 Subjective/Events-last exam Patient lying comfortably in bed during assessment. She admits to shortness of breath last evening which resolved with BiPAP use and continues to complain of a dry cough. She also notes an episode of diarrhea yesterday though she cannot specify the amount. She required BiPAP with 45.00 O2 flow rate again last night for a longer duration than the night prior. She has been on pressors since 9:30 pm yesterday. She denies any abdominal pain, nausea, vomiting, chest pain, or pleuritic pain. Review of Systems General: No Chills, No Night Sweats Pulmonary: Dyspnea, Cough Cardiovascular: No: Chest Pain, Palpitations Gastrointestinal: Diarrhea; No: Nausea, Vomiting, Abdominal Pain Genitourinary: No Dysuria, No Frequency Focused Exam Lactate Level 01/12/23 07:41: Lactic Acid Level 1.09 Time of Focused Exam: 18:30 Objective Exam Vital Signs Date Time Temp Pulse Resp B/P (MAP) Pulse Ox O2 Delivery O2 Flow Rate FiO2 01/14/23 07:42 94 106/80 01/14/23 06:57 Nasal Cannula 3.00 01/14/23 06:53 99 Nasal Cannula 4.00 01/14/23 06:00 94 28 106/80 (89) 100 High Flow N/C 4.00 01/14/23 05:00 92 34 113/81 (92) 99 High Flow N/C 4.00 01/14/23 04:00 93 17 114/86 (95) 98 High Flow N/C 4.00 01/14/23 04:00 100 High Flow N/C 4.00 01/14/23 04:00 36.5 01/14/23 03:30 High Flow N/C 4.00 01/14/23 03:00 92 13 121/86 (98) 98 NIV Bilevel 45.00 01/14/23 02:41 89 26 99 45.00 01/14/23 02:00 89 22 124/86 (99) 100 NIV Bilevel 45.00 01/14/23 01:00 88 20 116/81 (93) 100 NIV Bilevel 45.00 01/14/23 01:00 90 01/14/23 00:00 100 NIV Bilevel 45 01/14/23 00:00 36.2 01/14/23 00:00 89 13 116/81 (93) 100 NIV Bilevel 45.00 01/13/23 23:00 88 29 104/70 (81) 100 NIV Bilevel 45.00 01/13/23 22:00 90 26 103/71 (82) 100 NIV Bilevel 45.00 01/13/23 21:35 92 27 100 45.00 01/13/23 21:00 96 29 101/73 (82) 100 NIV Bilevel 45.00 01/13/23 20:00 95 NIV Bilevel 45 01/13/23 20:00 95 25 106/70 (82) 98 NIV Bilevel 45.00 01/13/23 19:00 117 14 100/68 (79) 97 NIV Bilevel 45.00 01/13/23 19:00 117 01/13/23 18:28 130 55 95 45.00 01/13/23 18:00 130 63 124/84 (97) 95 NIV Bilevel 45.00 01/13/23 17:23 38.0 NIV Bilevel 45.00 01/13/23 17:10 38.0 01/13/23 17:08 144 60 92 45.00 01/13/23 17:00 147 61 133/95 (108) 93 NIV Bilevel 40.00 01/13/23 16:22 39.3 NIV Bilevel 40.00 01/13/23 16:18 39.3 01/13/23 16:15 93 High Flow N/C 2.00 01/13/23 16:00 112 53 139/95 (110) 99 High Flow N/C 2.00 01/13/23 15:03 94 Nasal Cannula 2.00 01/13/23 15:00 94 39 126/88 (101) 94 High Flow N/C 2.00 01/13/23 14:00 88 27 120/80 (93) 97 High Flow N/C 2.00 01/13/23 13:00 86 34 110/85 (93) 95 High Flow N/C 2.00 01/13/23 13:00 87 01/13/23 12:10 37.5 01/13/23 12:00 89 37 91/62 (72) 96 High Flow N/C 2.00 01/13/23 12:00 97 High Flow N/C 2.00 01/13/23 11:00 89 19 103/70 (81) 93 High Flow N/C 2.00 01/13/23 10:56 36.8 01/13/23 10:12 37.0 01/13/23 10:08 97 Nasal Cannula 2.00 01/13/23 10:00 80 21 110/74 (86) 97 High Flow N/C 2.00 01/13/23 09:00 80 30 93/65 (74) 97 High Flow N/C 2.00 01/13/23 08:05 High Flow N/C 2.00 01/13/23 08:05 99 High Flow N/C 2.00 01/13/23 08:00 83 29 99/69 (79) 99 High Flow N/C 4.00 01/13/23 07:56 36.7 High Flow N/C 4.00 I & O 01/14/23 07:00 Intake Total 2995 ml Output Total 1925 ml Balance 1070 ml Capillary Refill : Less Than 3 Seconds General Appearance: No Apparent Distress, WD/WN, Chronically ill HEENT: Moist Mucous Membranes Neck: Non Tender, Supple Respiratory: Lungs Clear, Decreased Breath Sounds (left lobe) Cardiovascular: Regular Rate, Rhythm Gastrointestinal: normal bowel sounds, non tender, soft, hernia (small umbilical), other (incisions from surgery, healing well) Extremity: No Calf Tenderness, No Pedal Edema Neurologic/Psychiatric: Alert, Oriented x3 Skin: Normal Color Lymphatic: No Adenopathy (cervical ) Results Lab Laboratory Tests 01/13/23 10:55: Glucometer 175H 01/13/23 16:16: Glucometer 124H 01/13/23 17:08: Blood Gas Puncture Site LEFT RADIAL, Blood Gas Patient Temperature 38.0, Arterial Blood pH 7.23*L, Arterial Blood Partial Pressure CO2 41, Arterial Blood Partial Pressure O2 72L, Arterial Blood HCO3 16*L, Arterial Blood Total CO2 17.6L, Arterial Blood Oxygen Saturation 91L, Arterial Blood Base Excess -9.6L, Hayden Test P, Blood Gas Ventilator Setting NO, Blood Gas Inspired Oxygen 40.0 01/13/23 20:38: Glucometer 156H 01/14/23 05:10: White Blood Count 5.7, Red Blood Count 3.40L, Hemoglobin 10.8L, Hematocrit 32L, Mean Corpuscular Volume 93, Mean Corpuscular Hemoglobin 32, Mean Corpuscular Hemoglobin Concent 34, Red Cell Distribution Width 12.8, Platelet Count 118L, Mean Platelet Volume 11.6, Immature Granulocyte % (Auto) 1, Neutrophils (%) (Auto) 88H, Lymphocytes (%) (Auto) 7L, Monocytes (%) (Auto) 4, Eosinophils (%) (Auto) 0, Basophils (%) (Auto) 0, Neutrophils # (Auto) 5.0, Lymphocytes # (Auto) 0.4L, Monocytes # (Auto) 0.2, Eosinophils # (Auto) 0.0, Basophils # (Auto) 0.0, Immature Granulocyte # (Auto) 0.0, Percent Immature Platelet Fraction 5.5, Sodium Level 139, Potassium Level 3.9, Chloride Level 110H, Carbon Dioxide Level 15L, Anion Gap 14, Blood Urea Nitrogen 13, Creatinine 0.74, Estimat Glomerular Filtration Rate 93, BUN/Creatinine Ratio 18, Glucose Level 144H, Calcium Level 8.7, Corrected Calcium 9.7, Phosphorus Level 2.4, Magnesium Level 1.6, Total Bilirubin 1.4H, Aspartate Amino Transf (AST/SGOT) 42H, Alanine Aminotransferase (ALT/SGPT) 131H, Alkaline Phosphatase 239H, Total Protein 5.6L, Albumin 2.7L, Vancomycin Level Trough 24.6H 01/14/23 05:54: Glucometer 134H Microbiology 01/12/23 Urine Culture - Final, Complete NO GROWTH 01/12/23 Blood Culture - Preliminary, Resulted No growth 01/10/23 MRSA Screen - Final, Complete MRSA not isolated Assessment/Plan Assessment/Plan Assessment/Plan Choledochalithiasis - without obstruction, will need ERCP POD #3 s/p laparoscopic cholecystectomy for cholecystitis with cholelilithiasis Elevated liver enzymes - slightly improved compared to yesterday Direct hyperbilirubinemia - improving PNA vs Edema - opacifications CXR on 01/14 slightly improved compared to 01/13, Continue Zosyn Hypoxia - BiPAP required again last night for longer duration Hypotension - on pressors since yesterday evening Metabolic acidosis Hypomagnesemia - resolved Diarrhea - isolated episode yesterday Elevated troponin (0.063 on 01/09, 0.2 on 01/10, 0.118 01/12); cardiology suspects Type II NSTEMI related to E. coli bacteremia CAD - 3 stents placed in 2009; CABG was recommended by cardiology based on catherization in 2021 HF with EF 30-35% - per 2021 echocardiogram; results of Echo done on 01/11 pending [facility] Clinical Quality Measures DVT/VTE Risk/Contraindication: Contraindications-Pharm: Other *list below* Other: TEOFILO SHARMA DO 01/14/23 1250: Subjective Time Seen by a Provider: 09:03 Subjective/Events-last exam Pt seen and examined, sitting up in bed. She states she is feeling ok today. Denies abdominal pain. Review of Systems General: No Chills, No Night Sweats Pulmonary: Dyspnea, Cough Cardiovascular: No: Chest Pain, Palpitations Gastrointestinal: Diarrhea; No: Nausea, Vomiting, Abdominal Pain Objective Exam General Appearance: No Apparent Distress, Chronically ill HEENT: Moist Mucous Membranes; No Scleral Icterus (L), No Scleral Icterus (R) Respiratory: No Accessory Muscle Use, No Respiratory Distress, Decreased Breath Sounds (left lobe) Cardiovascular: Regular Rate, Rhythm Gastrointestinal: non tender, soft, hernia (small umbilical), other (incisions from surgery, healing well) Neurologic/Psychiatric: Alert, Oriented x3 Assessment/Plan Assessment/Plan Assessment/Plan Choledochalithiasis - without obstruction, will need ERCP POD #3 s/p laparoscopic cholecystectomy for cholecystitis with cholelilithiasis Elevated liver enzymes - slightly improved compared to yesterday Direct hyperbilirubinemia - improving PNA vs Edema - opacifications CXR on 01/14 slightly improved compared to 01/13, Continue Zosyn Hypoxia - BiPAP required again last night for longer duration Hypotension - on pressors since yesterday evening Metabolic acidosis Hypomagnesemia - resolved Diarrhea - isolated episode yesterday Elevated troponin (0.063 on 01/09, 0.2 on 01/10, 0.118 01/12); cardiology suspects Type II NSTEMI related to E. coli bacteremia CAD - 3 stents placed in 2009; CABG was recommended by cardiology based on catherization in 2021 HF with EF 30-35% - per 2021 echocardiogram; results of Echo done on 01/11 pending [facility] Supervisory-Addendum Brief Verification & Attestation Participated in pt care: history, MDM, physical Personally performed: exam, history, MDM, supervision of care Care discussed with: Medical Student Procedures: n/a Verification and Attestation of Medical Student E/M Service A medical student performed and documented this service. I then reviewed and ve rified all information documented by the medical student and made modifications to such information, when appropriate. I personally performed a physical exam, medical decision making and then discussed any differences between the notes and made revisions as necessary to create one note. Teofilo Fragoso , 01/14/23 , 12:50 LEROY CHAVEZ Jan 14, 2023 07:54 TEOFILO FRAGOSO DO Jan 14, 2023 12:50
[2023-01-14] MEDS: DOCUSATE SODIUM 100 MG (COLACE) CAP PO SCH ×2 (08:07→21:00)
[2023-01-14] MEDS: SENNOSIDES 8.6 MG (SENOKOT) TAB PO SCH ×2 (08:07→21:00)
--- NOTE | 2023-01-14 08:16 | Physical Therapy Progress Note ---
Therapy Progress Note Patient is on Hold per RN due to status. Will attempt tomorrow SORAYA Bolanos PT Jan 14, 2023 08:16
[2023-01-14] MEDS: ACETAMINOPHEN 325 MG TABLET PO PRN ×2 (08:39→18:02)
[2023-01-14] MEDS: PANTOPRAZOLE 40 MG (PROTONIX) VIAL IV SCH (08:39)
[2023-01-14] MEDS: CLOPIDOGREL 75 MG (PLAVIX) TABLET PO SCH (08:39)
[2023-01-14] MEDS: ENOXAPARIN 40 MG/0.4 ML (LOVENOX) SYR SC SCH (08:39)
[2023-01-14] MEDS ORDERED: TROUGH ORDER-PHARMACY XX NR (15:00)
[2023-01-14] MEDS: VANCOMYCIN 1250MG/250ML PREMIX 250 ML IV SCH (17:54)
[2023-01-14] MEDS ORDERED: NS IV 1000 ML 1,000 ML ONE (18:55)
--- NOTE | 2023-01-14 18:58 | Progress Note ---
Standard Progress Note Progress Notes/Assess & Plan Date Seen by a Provider: Jan 14, 2023 Time Seen by a Provider: 18:57 Progress/Assessment & Plan called for temp 38.6, UO lower 150 mL over last 4 hours, BP ok, will start IV normal saline @ 125 mL/h, pt not eating CHONG UNDERWOOD MD Jan 14, 2023 18:58
[2023-01-14] MEDS ORDERED: NS IV 1000 ML 1,000 ML IV SCH (19:00)
[2023-01-14] MEDS: NS IV 1000 ML 1,000 ML IV SCH (19:16)
[2023-01-15] MEDS: MELATONIN 3 MG TABLET PO PRN ×2 (00:53→22:35)
[2023-01-15] MEDS: RT-ALBUTEROL HFA 8.5 GM INHALER IH SCH ×6 (02:45→22:22)
[2023-01-15] MEDS: PIPERACILLIN SODIUM/TAZOBACTAM 4.5 GM in NS (IVPB) 100 ML IV SCH (03:21)
[2023-01-15] MEDS: ACETAMINOPHEN 325 MG TABLET PO PRN ×2 (03:21→17:51)
[2023-01-15 03:34] LABS: HEMOGLOBIN 9.6 g/dL (11.5-16.0)
[2023-01-15 03:36] LABS: BASOPHILS % (AUTO) 0 % (0-10); EOSINOPHILS # (AUTO) 0.1 10^3/uL (0.0-0.3); EOSINOPHILS % (AUTO) 2 % (0-10); HEMATOCRIT 28 % (35-52); LYMPHOCYTES # (AUTO) 0.4 10^3/uL (1.0-4.0); LYMPHOCYTES % (AUTO) 12 % (12-44); MEAN CORPUSCULAR HEMOGLOBIN 32 pg (25-34); MEAN CORPUSCULAR HGB CONC 34 g/dL (32-36); MEAN CORPUSCULAR VOLUME 93 fL (80-99); MEAN PLATELET VOLUME 11.9 fL (9.0-12.2); MONOCYTES # (AUTO) 0.2 10^3/uL (0.0-1.0); MONOCYTES % (AUTO) 5 % (0-12); NEUTROPHILS # (AUTO) 2.5 10^3/uL (1.8-7.8); NEUTROPHILS % (AUTO) 80 % (42-75); PLATELET COUNT 126 10^3/uL (130-400); WHITE BLOOD COUNT 3.2 10^3/uL (4.3-11.0)
[2023-01-15 03:46] LABS: ALBUMIN 2.6 GM/DL (3.2-4.5); POTASSIUM 3.6 MMOL/L (3.6-5.0)
[2023-01-15 03:47] LABS: CALCIUM 8.2 MG/DL (8.5-10.1)
[2023-01-15 03:49] LABS: TOTAL PROTEIN 5.4 GM/DL (6.4-8.2)
[2023-01-15 03:52] LABS: CREATININE SERUM 0.73 MG/DL (0.60-1.30); PHOSPHORUS 1.7 MG/DL (2.3-4.7)
[2023-01-15 03:55] LABS: MAGNESIUM 1.7 MG/DL (1.6-2.4)
[2023-01-15] MEDS: NS IV 1000 ML 1,000 ML IV SCH ×2 (05:08→15:24)
[2023-01-15] MEDS: POTASSIUM CL 10MEQ/50ML IVPB 50 ML IV SCH ×5 (06:43→09:50)
[2023-01-15] MEDS: MAGNESIUM 1 GM/100 ML IVPB 100 ML IV SCH ×5 (06:44→09:50)
[2023-01-15] MEDS: KCL 20 MEQ TAB (K-DUR) PO SCH (06:44)
[2023-01-15 06:45] VITALS: BP 112/83
[2023-01-15] MEDS: inSUlin ASPART (NovoLOG) 1 UNIT/0.01 ML (CHARGE PER UNIT) SC SCH ×4 (07:11→20:41)
[2023-01-15] MEDS: NOREPINEPHRINE 8 MG/250 ML 250 ML IV SCH ×3 (07:38→20:00)
--- NOTE | 2023-01-15 07:55 | Tele-ICU Progress Note ---
Progress Note video rounds completed 62 y/o female admitted with sepsis from a biliary source, now s/p lap choly Overall doing well Still on IV zosyn for E. Coli sepsis PE: sitting up in bed comfortably, eating breakfast, conversing with bedside RN Pulse: 72, NSR BP: 112/83 O2 sat 100% Was on BIPAP overnight 08/04, 45% IMP: E coli sepsis from cholangitis resolved, s.p cholecystectomy PLAN: Surgery following Possible transfer out of ICU today Time spent with patient, review of labs: 20 minutes Focused Exam Height, Weight, BMI Height: '" Weight: 146lbs. oz. 66.789575ke; 26.82 BMI Method:Stated Time of Focused Exam: 18:30 Labs Laboratory Tests 01/15/23 03:12 Labs Laboratory Tests 01/15/23 03:12 Results Results/Procedures Labs Laboratory Tests 01/14/23 05:10 01/15/23 03:12 Patient resulted labs reviewed. Results Labs Labs Laboratory Tests 01/14/23 10:24: Glucometer 223H 01/14/23 15:30: Vancomycin Level Trough 12.1 01/14/23 17:15: Glucometer 193H 01/14/23 20:43: Glucometer 200H 01/15/23 03:12: White Blood Count 3.2L, Red Blood Count 2.99L, Hemoglobin 9.6L, Hematocrit 28L, Mean Corpuscular Volume 93, Mean Corpuscular Hemoglobin 32, Mean Corpuscular Hemoglobin Concent 34, Red Cell Distribution Width 13.2, Platelet Count 126L, Mean Platelet Volume 11.9, Immature Granulocyte % (Auto) 1, Neutrophils (%) (Auto) 80H, Lymphocytes (%) (Auto) 12, Monocytes (%) (Auto) 5, Eosinophils (%) (Auto) 2, Basophils (%) (Auto) 0, Neutrophils # (Auto) 2.5, Lymphocytes # (Auto) 0.4L, Monocytes # (Auto) 0.2, Eosinophils # (Auto) 0.1, Basophils # (Auto) 0.0, Immature Granulocyte # (Auto) 0.0, Percent Immature Platelet Fraction 6.5, Sodium Level 137, Potassium Level 3.6, Chloride Level 109H, Carbon Dioxide Level 18L, Anion Gap 10, Blood Urea Nitrogen 11, Creatinine 0.73, Estimat Glomerular Filtration Rate 94, BUN/Creatinine Ratio 15, Glucose Level 234H, Calcium Level 8.2L, Corrected Calcium 9.3, Phosphorus Level 1.7L, Magnesium Level 1.7, Total Bilirubin 1.0, Aspartate Amino Transf (AST/SGOT) 33, Alanine Aminotransferase (ALT/SGPT) 98H, Alkaline Phosphatase 189H, Total Protein 5.4L, Albumin 2.6L 01/15/23 05:51: Glucometer 173H Microbiology 01/12/23 Urine Culture - Final, Complete NO GROWTH 01/12/23 Blood Culture - Preliminary, Resulted No growth 01/10/23 MRSA Screen - Final, Complete MRSA not isolated CHONG PALACIOS MD Jan 15, 2023 07:55
[2023-01-15] MEDS: CLOPIDOGREL 75 MG (PLAVIX) TABLET PO SCH (08:42)
[2023-01-15] MEDS: DOCUSATE SODIUM 100 MG (COLACE) CAP PO SCH ×2 (08:42→21:00)
[2023-01-15] MEDS: SENNOSIDES 8.6 MG (SENOKOT) TAB PO SCH ×2 (08:42→21:00)
[2023-01-15] MEDS: PANTOPRAZOLE 40 MG (PROTONIX) VIAL IV SCH (08:43)
[2023-01-15] MEDS: ENOXAPARIN 40 MG/0.4 ML (LOVENOX) SYR SC SCH (08:43)
--- NOTE | 2023-01-15 09:03 | Physical Therapy Progress Note ---
Therapy Progress Note Patient on Hold per RN due to current medical status. PT will attempt Tuesday SORAYA PICKARD PT Jan 15, 2023 09:03
--- NOTE | 2023-01-15 09:04 | Progress Note - Hospitalist ---
Subjective HPI/CC On Admission Date Seen by Provider: Jan 15, 2023 Time Seen by Provider: 07:00 Subjective/Events-last exam Patient reports feeling better while she required BiPAP last night she is on 1 L eating breakfast with O2 saturations in the upper 90s. She denies nausea just reports generalized weakness. She was pleasant alert and oriented. Focused Exam Time of Focused Exam: 18:30 Objective Exam Vital Signs Vital Signs Date Time Temp Pulse Resp B/P (MAP) Pulse Ox O2 Delivery O2 Flow Rate FiO2 01/15/23 08:00 99 Nasal Cannula 1.00 01/15/23 08:00 75 34 100/75 (83) 01/15/23 07:45 36.1 01/15/23 04:00 45 Capillary Refill : Less Than 3 Seconds General Appearance: No Apparent Distress Respiratory: No Accessory Muscle Use, No Respiratory Distress, Other (Scattered rhonchi throughout without wheezing on regular respiration.) Cardiovascular: Regular Rate, Rhythm, Other ( Distant heart sounds no murmur S3 or S4 appreciated) Gastrointestinal: Normal Bowel Sounds, No Organomegaly, No Pulsatile Mass, Non Tender, Soft Results/Procedures Lab Laboratory Tests 01/15/23 03:12 Patient resulted labs reviewed. Assessment/Plan Assessment and Plan Assess & Plan/Chief Complaint Assess & Plan/Chief Complaint (1) Severe sepsis Status: Acute Assessment & Plan: - HDS this AM, continue IV antibiotics and gentle hydration, blood cultures + Ecoli 01/15: Severe sepsis improving with decreased liver function test considering E. coli and bloodstream suspect a sending cholangitis because of underlying severe sepsis as opposed to pneumonia being the source will however continue broad- spectrum antibiotics for now. Liver failure from severe sepsis improving. (2) Bacteremia due to Escherichia coli Status: Acute (3) NSTEMI (non-ST elevated myocardial infarction) Status: Acute Assessment & Plan: - Cardiology consulted, patient previously recommended to get bypass surgery but did not have it done, currently asymptomatic, Type 2 PA due to severe sepsis (4) Cholecystitis, acute with cholelithiasis Status: Acute Assessment & Plan: - Dr Walker consulted, appreciate recommendations (5) Hypomagnesemia Status: Acute Assessment & Plan: - Replace and repeat in AM (6) HFrEF (heart failure with reduced ejection fraction) Status: Chronic (7) CAD (coronary artery disease) Status: Chronic (8) HTN (hypertension) Status: Chronic Assessment & Plan: - hypotensive on admission, holding any BP meds Critical Care Critically Ill Patient Clinical Quality Measures DVT/VTE Risk/Contraindication: Contraindications-Pharm: Other *list below* Other: OR ENZO MURRELL MD Jan 15, 2023 09:04
--- NOTE | 2023-01-15 09:40 | Diagnostic Imaging Report ---
INDICATION: Sepsis Frontal chest obtained at 0625 a.m. and compared with 01/14/2023. There is no change in extensive diffuse bilateral infiltrates throughout both lungs. There is no pneumothorax or pleural fluid. There is a new right-sided PICC line with tip overlying mid SVC. The heart is normal in size. There is a minimal amount of pleural fluid on both sides. IMPRESSION: Extensive bilateral infiltrates are again noted without change from the prior study with minimal bilateral pleural effusions. There is a new right-sided PICC line compared to the prior study, tip overlies the SVC. Dictated by: Dictated on workstation # [id number]
[2023-01-15] MEDS: VANCOMYCIN 1250MG/250ML PREMIX 250 ML IV SCH (11:23)
--- NOTE | 2023-01-15 12:55 | Progress Note ---
Subjective Date Seen by a Provider: Jan 15, 2023 Time Seen by a Provider: 11:00 Subjective/Events-last exam doing much better. no SOB. awake and alert. no fever/chills. tolerating diet. still needing intermittent pressors to maintain MAP. Focused Exam Time of Focused Exam: 18:30 Objective Exam Vital Signs Date Time Temp Pulse Resp B/P (MAP) Pulse Ox O2 Delivery O2 Flow Rate FiO2 01/15/23 12:34 79 01/15/23 12:00 77 36 99/72 (81) 97 Nasal Cannula 0.50 01/15/23 11:49 36.0 01/15/23 11:00 76 31 81/60 (67) 97 Nasal Cannula 0.50 01/15/23 10:40 Nasal Cannula 0.50 01/15/23 10:15 94 Nasal Cannula 0.50 01/15/23 10:00 110 29 90/64 (73) 96 Nasal Cannula 1.00 01/15/23 09:15 73/52 (59) 01/15/23 09:00 70 26 92/69 (77) 98 Nasal Cannula 1.00 01/15/23 09:00 78/58 (65) 01/15/23 08:00 99 Nasal Cannula 1.00 01/15/23 08:00 75 34 100/75 (83) 99 Nasal Cannula 1.00 01/15/23 07:45 36.1 01/15/23 07:40 112/83 (93) 01/15/23 07:38 75 115/85 01/15/23 07:15 115/85 (95) 01/15/23 07:00 76 19 115/85 (96) 100 NIV Bilevel 45.00 01/15/23 07:00 75 01/15/23 06:45 71 30 100 40.00 01/15/23 06:00 77 25 128/86 (100) 100 NIV Bilevel 45.00 01/15/23 05:00 78 18 114/82 (93) 95 NIV Bilevel 45.00 01/15/23 04:48 NIV Bilevel 45.00 01/15/23 04:00 98 NIV Bilevel 45 01/15/23 04:00 89 29 114/78 (90) 94 High Flow N/C 3.00 01/15/23 04:00 37.1 01/15/23 03:21 37.9 01/15/23 03:20 37.9 01/15/23 03:00 86 33 119/87 (98) 98 High Flow N/C 3.00 01/15/23 02:46 98 Nasal Cannula 2.00 01/15/23 02:00 89 29 120/86 (97) 97 High Flow N/C 3.00 01/15/23 01:00 90 01/15/23 01:00 89 35 113/83 (93) 97 High Flow N/C 3.00 01/15/23 00:00 87 24 114/79 (91) 97 High Flow N/C 3.00 01/15/23 00:00 99 High Flow N/C 3.00 01/14/23 23:29 37.1 01/14/23 23:00 88 30 106/75 (85) 96 High Flow N/C 3.00 01/14/23 22:27 96 Nasal Cannula 2.00 01/14/23 22:00 85 34 96/72 (80) 96 High Flow N/C 3.00 01/14/23 21:00 80 87/53 (64) 97 High Flow N/C 3.00 01/14/23 20:04 36.9 High Flow N/C 3.00 01/14/23 20:04 98 High Flow N/C 3.00 01/14/23 20:00 82 95/57 (70) 97 High Flow N/C 3.00 01/14/23 19:00 90 100/54 (69) 98 High Flow N/C 3.00 01/14/23 18:59 89 01/14/23 18:35 99 Nasal Cannula 2.00 01/14/23 18:32 38.1 01/14/23 18:02 38.6 01/14/23 18:00 91 104/95 (98) 100 High Flow N/C 3.00 01/14/23 17:00 92 116/77 (84) 100 High Flow N/C 3.00 01/14/23 16:00 100 High Flow N/C 3.00 01/14/23 16:00 90 119/77 (100) 100 High Flow N/C 3.00 01/14/23 15:00 84 102/84 (90) 100 High Flow N/C 3.00 01/14/23 15:00 96 Nasal Cannula 2.00 01/14/23 14:00 82 103/72 (79) 97 High Flow N/C 3.00 01/14/23 13:00 87 01/14/23 13:00 86 39 98/64 (77) 100 High Flow N/C 3.00 I & O 01/15/23 07:00 Intake Total 2126 ml Output Total 1010 ml Balance 1116 ml Capillary Refill : Less Than 3 Seconds General Appearance: No Apparent Distress HEENT: PERRL/EOMI Neck: Full Range of Motion Respiratory: Decreased Breath Sounds, Rhonci, Wheezing Cardiovascular: Regular Rate, Rhythm Gastrointestinal: normal bowel sounds, soft, tenderness Extremity: Normal Capillary Refill Neurologic/Psychiatric: Alert, Oriented x3 Skin: Normal Color Lymphatic: No Adenopathy Results Lab Laboratory Tests 01/14/23 15:30: Vancomycin Level Trough 12.1 01/14/23 17:15: Glucometer 193H 01/14/23 20:43: Glucometer 200H 01/15/23 03:12: White Blood Count 3.2L, Red Blood Count 2.99L, Hemoglobin 9.6L, Hematocrit 28L, Mean Corpuscular Volume 93, Mean Corpuscular Hemoglobin 32, Mean Corpuscular Hemoglobin Concent 34, Red Cell Distribution Width 13.2, Platelet Count 126L, Mean Platelet Volume 11.9, Immature Granulocyte % (Auto) 1, Neutrophils (%) (Auto) 80H, Lymphocytes (%) (Auto) 12, Monocytes (%) (Auto) 5, Eosinophils (%) (Auto) 2, Basophils (%) (Auto) 0, Neutrophils # (Auto) 2.5, Lymphocytes # (Auto) 0.4L, Monocytes # (Auto) 0.2, Eosinophils # (Auto) 0.1, Basophils # (Auto) 0.0, Immature Granulocyte # (Auto) 0.0, Percent Immature Platelet Fraction 6.5, Sodium Level 137, Potassium Level 3.6, Chloride Level 109H, Carbon Dioxide Level 18L, Anion Gap 10, Blood Urea Nitrogen 11, Creatinine 0.73, Estimat Glomerular Filtration Rate 94, BUN/Creatinine Ratio 15, Glucose Level 234H, Calcium Level 8.2L, Corrected Calcium 9.3, Phosphorus Level 1.7L, Magnesium Level 1.7, Total Bilirubin 1.0, Aspartate Amino Transf (AST/SGOT) 33, Alanine Aminotransferase (ALT/SGPT) 98H, Alkaline Phosphatase 189H, Total Protein 5.4L, Albumin 2.6L 01/15/23 05:51: Glucometer 173H 01/15/23 10:42: Glucometer 182H Microbiology 01/12/23 Urine Culture - Final, Complete NO GROWTH 01/12/23 Blood Culture - Preliminary, Resulted No growth 01/10/23 MRSA Screen - Final, Complete MRSA not isolated Assessment/Plan Assessment/Plan Assess & Plan/Chief Complaint s/p laparoscopic cholecystectomy and IOC with choledocholithiasis. T michelle normalized and stones reduced on own. WBC normal hypotensive episodes likely due to pneumonia. cont abx. Clinical Quality Measures DVT/VTE Risk/Contraindication: Contraindications-Pharm: Other *list below* Other: OR CORRINA ISAAC MD Jan 15, 2023 12:55
[2023-01-16] MEDS: NS IV 1000 ML 1,000 ML IV SCH ×2 (01:05→11:45)
[2023-01-16] MEDS: RT-ALBUTEROL HFA 8.5 GM INHALER IH SCH ×6 (02:32→21:34)
[2023-01-16 04:31] LABS: BASOPHILS % (AUTO) 0 % (0-10); MEAN CORPUSCULAR VOLUME 94 fL (80-99)
[2023-01-16 04:33] LABS: EOSINOPHILS # (AUTO) 0.1 10^3/uL (0.0-0.3); EOSINOPHILS % (AUTO) 6 % (0-10); HEMATOCRIT 27 % (35-52); HEMOGLOBIN 9.1 g/dL (11.5-16.0); LYMPHOCYTES # (AUTO) 0.4 10^3/uL (1.0-4.0); LYMPHOCYTES % (AUTO) 18 % (12-44); MEAN CORPUSCULAR HEMOGLOBIN 32 pg (25-34); MEAN CORPUSCULAR HGB CONC 34 g/dL (32-36); MEAN PLATELET VOLUME 11.8 fL (9.0-12.2); MONOCYTES # (AUTO) 0.1 10^3/uL (0.0-1.0); MONOCYTES % (AUTO) 4 % (0-12); NEUTROPHILS # (AUTO) 1.7 10^3/uL (1.8-7.8); NEUTROPHILS % (AUTO) 71 % (42-75); PLATELET COUNT 115 10^3/uL (130-400); WHITE BLOOD COUNT 2.3 10^3/uL (4.3-11.0)
[2023-01-16 04:48] LABS: ALBUMIN 2.4 GM/DL (3.2-4.5); BILIRUBIN,TOTAL 0.8 MG/DL (0.1-1.0); CALCIUM 8.2 MG/DL (8.5-10.1); CREATININE SERUM 0.6 MG/DL (0.60-1.30); MAGNESIUM 1.6 MG/DL (1.6-2.4); PHOSPHORUS 2.1 MG/DL (2.3-4.7); POTASSIUM 3.6 MMOL/L (3.6-5.0); TOTAL PROTEIN 5.2 GM/DL (6.4-8.2)
[2023-01-16 05:14] LABS: SMEAR SCAN COMMENT YES
[2023-01-16] MEDS: VANCOMYCIN 1250MG/250ML PREMIX 250 ML IV SCH ×2 (06:36→22:58)
[2023-01-16] MEDS: MAGNESIUM 1 GM/100 ML IVPB 100 ML IV SCH ×2 (06:37→06:47)
[2023-01-16] MEDS: inSUlin ASPART (NovoLOG) 1 UNIT/0.01 ML (CHARGE PER UNIT) SC SCH ×4 (06:47→19:49)
[2023-01-16] MEDS: POTASSIUM CL 10MEQ/50ML IVPB 50 ML IV SCH ×5 (06:47→11:37)
[2023-01-16] MEDS: KCL 20 MEQ TAB (K-DUR) PO SCH (06:47)
--- NOTE | 2023-01-16 08:03 | Diagnostic Imaging Report ---
INDICATION: Sepsis. TECHNIQUE: Single view chest 7:25 AM. CORRELATION STUDY: 01/15/2023 FINDINGS: Heart size and mediastinal configuration generally stable. Extensive nearly 5 lobe pulmonary infiltrate-like opacities, right greater than left, persisting. Given differences in technique, stable to perhaps slightly increased. There is also presence of small pleural effusions. Right-sided central line tip not well visualized but appears generally stable. IMPRESSION: 1. Extensive 5 lobe pulmonary infiltrates, right greater than left, stable to slightly increased. Small effusions. Dictated by: Dictated on workstation # [id number]
[2023-01-16] MEDS: PANTOPRAZOLE 40 MG (PROTONIX) VIAL IV SCH (08:27)
[2023-01-16] MEDS: SENNOSIDES 8.6 MG (SENOKOT) TAB PO SCH ×2 (08:27→19:33)
[2023-01-16] MEDS: CLOPIDOGREL 75 MG (PLAVIX) TABLET PO SCH (08:27)
[2023-01-16] MEDS: ENOXAPARIN 40 MG/0.4 ML (LOVENOX) SYR SC SCH (08:27)
[2023-01-16] MEDS: DOCUSATE SODIUM 100 MG (COLACE) CAP PO SCH ×2 (08:27→19:32)
--- NOTE | 2023-01-16 10:06 | Progress Note ---
Subjective Date Seen by a Provider: Jan 16, 2023 Time Seen by a Provider: 10:00 Subjective/Events-last exam Patient seen with Dr. Gerardo. Patient reports feels much better today. Denies any nausea, vomiting, or abdominal pain. Tolerating diet and ambulating. Had BM this morning. Focused Exam Time of Focused Exam: 18:30 Objective Exam Vital Signs Date Time Temp Pulse Resp B/P (MAP) Pulse Ox O2 Delivery O2 Flow Rate FiO2 01/16/23 09:00 73 139/95 (112) 95 Room Air 01/16/23 08:00 79 30 129/109 (112) 94 Room Air 01/16/23 07:00 84 107/73 (87) 95 Room Air 01/16/23 07:00 83 01/16/23 06:44 96 Room Air 01/16/23 06:00 80 26 108/75 (86) 95 Room Air 01/16/23 05:00 79 35 105/75 (85) 93 Room Air 01/16/23 04:00 95 Room Air 01/16/23 04:00 79 24 108/73 (85) 95 Room Air 01/16/23 03:00 82 27 95/67 (76) 94 Room Air 01/16/23 02:32 95 Room Air 01/16/23 02:00 78 102/75 (84) 94 Room Air 01/16/23 01:00 80 01/16/23 01:00 80 95 Room Air 01/16/23 00:20 36.2 78 22 75/62 (66) 94 Room Air 0.50 0.50 01/16/23 00:00 98 Room Air 01/16/23 00:00 75 93/77 (82) 93 Room Air 01/15/23 23:00 78 90/64 (73) 94 Room Air 01/15/23 22:22 98 Room Air 01/15/23 22:00 76 92/65 (74) 96 Room Air 01/15/23 21:00 73 96/69 (78) 95 Room Air 01/15/23 20:10 36.2 01/15/23 20:00 80 92/71 (78) 95 Room Air 01/15/23 20:00 95 Room Air 01/15/23 19:00 84 90/69 (76) 95 Room Air 01/15/23 19:00 84 01/15/23 18:49 97 Room Air 01/15/23 18:00 79 90/67 (75) 97 Nasal Cannula 0.50 01/15/23 17:00 78 38 113/98 (100) 97 Nasal Cannula 0.50 01/15/23 16:00 99 01/15/23 16:00 36.3 01/15/23 16:00 75 91/67 (77) 96 Nasal Cannula 0.50 01/15/23 15:00 78 30 92/68 (76) 96 Nasal Cannula 0.50 01/15/23 14:00 78 95/70 (78) 98 Nasal Cannula 0.50 01/15/23 13:00 78 30 94/74 (80) 96 Nasal Cannula 0.50 01/15/23 12:34 79 01/15/23 12:00 77 36 99/72 (81) 97 Nasal Cannula 0.50 01/15/23 12:00 99 Nasal Cannula 01/15/23 11:49 36.0 01/15/23 11:00 76 31 81/60 (67) 97 Nasal Cannula 0.50 01/15/23 10:40 Nasal Cannula 0.50 01/15/23 10:15 94 Nasal Cannula 0.50 I & O 01/16/23 07:00 Intake Total 2905 ml Output Total 1100 ml Balance 1805 ml Capillary Refill : Less Than 3 Seconds General Appearance: No Apparent Distress, WD/WN Neck: Normal Inspection, Supple Respiratory: No Accessory Muscle Use, No Respiratory Distress, Other (Scattered rhonchi bilateral) Gastrointestinal: normal bowel sounds, non tender, soft Extremity: Normal Inspection, Normal Range of Motion Neurologic/Psychiatric: Alert, Oriented x3 Skin: Normal Color, Warm/Dry Results Lab Laboratory Tests 01/15/23 10:42: Glucometer 182H 01/15/23 16:14: Glucometer 114H 01/15/23 20:34: Glucometer 158H 01/16/23 04:22: White Blood Count 2.3L, Red Blood Count 2.86L, Hemoglobin 9.1L, Hematocrit 27L, Mean Corpuscular Volume 94, Mean Corpuscular Hemoglobin 32, Mean Corpuscular Hemoglobin Concent 34, Red Cell Distribution Width 13.2, Platelet Count 115L, Mean Platelet Volume 11.8, Immature Granulocyte % (Auto) 0, Neutrophils (%) (Auto) 71, Lymphocytes (%) (Auto) 18, Monocytes (%) (Auto) 4, Eosinophils (%) (Auto) 6, Basophils (%) (Auto) 0, Neutrophils # (Auto) 1.7L, Lymphocytes # (Auto) 0.4L, Monocytes # (Auto) 0.1, Eosinophils # (Auto) 0.1, Basophils # (Auto) 0.0, Immature Granulocyte # (Auto) 0.0, Percent Immature Platelet Fraction 7.5, Sodium Level 138, Potassium Level 3.6, Chloride Level 112H, Carbon Dioxide Level 17L, Anion Gap 9, Blood Urea Nitrogen 9, Creatinine 0.60, Estimat Glomerular Filtration Rate 103, BUN/Creatinine Ratio 15, Glucose Level 104, Calcium Level 8.2L, Corrected Calcium 9.5, Phosphorus Level 2.1L, Magnesium Level 1.6, Total Bilirubin 0.8, Aspartate Amino Transf (AST/SGOT) 28, Alanine Aminotransferase (ALT/SGPT) 71H, Alkaline Phosphatase 181H, Total Protein 5.2L, Albumin 2.4L, Smear Scan YES 01/16/23 05:36: Glucometer 101 Microbiology 01/12/23 Urine Culture - Final, Complete NO GROWTH 01/12/23 Blood Culture - Preliminary, Resulted No growth 01/10/23 MRSA Screen - Final, Complete MRSA not isolated Assessment/Plan Assessment/Plan Assess & Plan/Chief Complaint s/p laparoscopic cholecystectomy and IOC with choledocholithiasis. T michelle normalized at 0.8 today and stones reduced on own. Off pressors Continue with medical management Clinical Quality Measures DVT/VTE Risk/Contraindication: Contraindications-Pharm: Other *list below* Other: OR NEREYDA HAY PUBLICATION[employer] WRITER Jan 16, 2023 10:06
--- NOTE | 2023-01-16 10:09 | Progress Note ---
Subjective Date Seen by a Provider: Jan 16, 2023 Time Seen by a Provider: 10:00 Subjective/Events-last exam doing well. still has some cough and sputum production. tolerating diet. lft's normal indicating passed CBD stones. Focused Exam Time of Focused Exam: 18:30 Objective Exam Vital Signs Date Time Temp Pulse Resp B/P (MAP) Pulse Ox O2 Delivery O2 Flow Rate FiO2 01/16/23 09:00 73 139/95 (112) 95 Room Air 01/16/23 08:00 79 30 129/109 (112) 94 Room Air 01/16/23 07:00 84 107/73 (87) 95 Room Air 01/16/23 07:00 83 01/16/23 06:44 96 Room Air 01/16/23 06:00 80 26 108/75 (86) 95 Room Air 01/16/23 05:00 79 35 105/75 (85) 93 Room Air 01/16/23 04:00 95 Room Air 01/16/23 04:00 79 24 108/73 (85) 95 Room Air 01/16/23 03:00 82 27 95/67 (76) 94 Room Air 01/16/23 02:32 95 Room Air 01/16/23 02:00 78 102/75 (84) 94 Room Air 01/16/23 01:00 80 01/16/23 01:00 80 95 Room Air 01/16/23 00:20 36.2 78 22 75/62 (66) 94 Room Air 0.50 0.50 01/16/23 00:00 98 Room Air 01/16/23 00:00 75 93/77 (82) 93 Room Air 01/15/23 23:00 78 90/64 (73) 94 Room Air 01/15/23 22:22 98 Room Air 01/15/23 22:00 76 92/65 (74) 96 Room Air 01/15/23 21:00 73 96/69 (78) 95 Room Air 01/15/23 20:10 36.2 01/15/23 20:00 80 92/71 (78) 95 Room Air 01/15/23 20:00 95 Room Air 01/15/23 19:00 84 90/69 (76) 95 Room Air 01/15/23 19:00 84 01/15/23 18:49 97 Room Air 01/15/23 18:00 79 90/67 (75) 97 Nasal Cannula 0.50 01/15/23 17:00 78 38 113/98 (100) 97 Nasal Cannula 0.50 01/15/23 16:00 99 01/15/23 16:00 36.3 01/15/23 16:00 75 91/67 (77) 96 Nasal Cannula 0.50 01/15/23 15:00 78 30 92/68 (76) 96 Nasal Cannula 0.50 01/15/23 14:00 78 95/70 (78) 98 Nasal Cannula 0.50 01/15/23 13:00 78 30 94/74 (80) 96 Nasal Cannula 0.50 01/15/23 12:34 79 01/15/23 12:00 77 36 99/72 (81) 97 Nasal Cannula 0.50 01/15/23 12:00 99 Nasal Cannula 01/15/23 11:49 36.0 01/15/23 11:00 76 31 81/60 (67) 97 Nasal Cannula 0.50 01/15/23 10:40 Nasal Cannula 0.50 01/15/23 10:15 94 Nasal Cannula 0.50 I & O 01/16/23 07:00 Intake Total 2905 ml Output Total 1100 ml Balance 1805 ml Capillary Refill : Less Than 3 Seconds General Appearance: No Apparent Distress HEENT: PERRL/EOMI Neck: Full Range of Motion Respiratory: Decreased Breath Sounds, Rhonci, Wheezing Cardiovascular: Regular Rate, Rhythm Gastrointestinal: normal bowel sounds, soft Extremity: Normal Capillary Refill Neurologic/Psychiatric: Alert, Oriented x3 Skin: Normal Color Lymphatic: No Adenopathy Results Lab Laboratory Tests 01/15/23 10:42: Glucometer 182H 01/15/23 16:14: Glucometer 114H 01/15/23 20:34: Glucometer 158H 01/16/23 04:22: White Blood Count 2.3L, Red Blood Count 2.86L, Hemoglobin 9.1L, Hematocrit 27L, Mean Corpuscular Volume 94, Mean Corpuscular Hemoglobin 32, Mean Corpuscular Hemoglobin Concent 34, Red Cell Distribution Width 13.2, Platelet Count 115L, Mean Platelet Volume 11.8, Immature Granulocyte % (Auto) 0, Neutrophils (%) (Auto) 71, Lymphocytes (%) (Auto) 18, Monocytes (%) (Auto) 4, Eosinophils (%) (Auto) 6, Basophils (%) (Auto) 0, Neutrophils # (Auto) 1.7L, Lymphocytes # (Auto) 0.4L, Monocytes # (Auto) 0.1, Eosinophils # (Auto) 0.1, Basophils # (Auto) 0.0, Immature Granulocyte # (Auto) 0.0, Percent Immature Platelet Fraction 7.5, Sodium Level 138, Potassium Level 3.6, Chloride Level 112H, Carbon Dioxide Level 17L, Anion Gap 9, Blood Urea Nitrogen 9, Creatinine 0.60, Estimat Glomerular Filtration Rate 103, BUN/Creatinine Ratio 15, Glucose Level 104, Calcium Level 8.2L, Corrected Calcium 9.5, Phosphorus Level 2.1L, Magnesium Level 1.6, Total Bilirubin 0.8, Aspartate Amino Transf (AST/SGOT) 28, Alanine Aminotransferase (ALT/SGPT) 71H, Alkaline Phosphatase 181H, Total Protein 5.2L, Albumin 2.4L, Smear Scan YES 01/16/23 05:36: Glucometer 101 Microbiology 01/12/23 Urine Culture - Final, Complete NO GROWTH 01/12/23 Blood Culture - Preliminary, Resulted No growth 01/10/23 MRSA Screen - Final, Complete MRSA not isolated Assessment/Plan Assessment/Plan Assess & Plan/Chief Complaint s/p laparoscopic cholecystectomy and IOC with choledocholithiasis. T michelle normalized and stones reduced on own. WBC normal hypotensive episodes likely due to pneumonia. cont abx. cont resp with IS and breathing tx. Clinical Quality Measures DVT/VTE Risk/Contraindication: Contraindications-Pharm: Other *list below* Other: OR CORRINA ISAAC MD Jan 16, 2023 10:09
--- NOTE | 2023-01-16 10:15 | Progress Note - Hospitalist ---
Subjective HPI/CC On Admission Date Seen by Provider: Jan 16, 2023 Time Seen by Provider: 09:00 Subjective/Events-last exam Patient still weak but feeling better just recently weaned off norepinephrine able to sit on the edge of the bed with assistance and although quite weak and assisted to the commode which was about the limit of her exertional capability. No lightheadedness reported no pallor with standing. 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 Focused Exam Time of Focused Exam: 18:30 Objective Exam Vital Signs Vital Signs Date Time Temp Pulse Resp B/P (MAP) Pulse Ox O2 Delivery O2 Flow Rate FiO2 01/16/23 09:00 73 139/95 (112) 95 Room Air 01/16/23 08:00 30 01/16/23 00:20 36.2 0.50 0.50 01/15/23 04:00 45 Capillary Refill : Less Than 3 Seconds General Appearance: No Apparent Distress Respiratory: No Accessory Muscle Use, No Respiratory Distress, Other (Few scattered rhonchi otherwise clear) Cardiovascular: Regular Rate, Rhythm, No Edema, No Gallop, No JVD, No Murmur, Normal Peripheral Pulses Extremity: Normal Inspection, Normal Range of Motion, Non Tender, No Calf Tenderness, No Pedal Edema Results/Procedures Lab Laboratory Tests 01/16/23 04:22 Patient resulted labs reviewed. Assessment/Plan Assessment and Plan Assess & Plan/Chief Complaint Assess & Plan/Chief Complaint (1) Severe sepsis Status: Acute Assessment & Plan: - HDS this AM, continue IV antibiotics and gentle hydration, blood cultures + Ecoli 01/15: Severe sepsis improving with decreased liver function test considering E. coli and bloodstream suspect a sending cholangitis because of underlying severe sepsis as opposed to pneumonia being the source will however continue broad- spectrum antibiotics for now. Liver failure from severe sepsis improving. 01/16: Sepsis continues to improve patient now off pressor support maintaining blood pressure with improving liver function tests see above. Her chest exam/auscultation sounds much better than the description of her chest x-ray which I suspect is more ARDS related and resolving although clearly pneumonia cannot be entirely excluded. Continue current antibiotics if she continues to improve consider transfer to floor and continue physical therapy which should be able to work with the patient now. (2) Bacteremia due to Escherichia coli Status: Acute (3) NSTEMI (non-ST elevated myocardial infarction) Status: Acute Assessment & Plan: - Cardiology consulted, patient previously recommended to get bypass surgery but did not have it done, currently asymptomatic, Type 2 OH due to severe sepsis (4) Cholecystitis, acute with cholelithiasis Status: Acute Assessment & Plan: - Dr Walker consulted, appreciate recommendations (5) Hypomagnesemia Status: Acute Assessment & Plan: - Replace and repeat in AM (6) HFrEF (heart failure with reduced ejection fraction) Status: Chronic (7) CAD (coronary artery disease) Status: Chronic (8) HTN (hypertension) Status: Chronic Assessment & Plan: - hypotensive on admission, holding any BP meds Critical Care Critically Ill Patient Clinical Quality Measures DVT/VTE Risk/Contraindication: Contraindications-Pharm: Other *list below* Other: OR ENZO MURRELL MD Jan 16, 2023 10:15
--- NOTE | 2023-01-16 11:23 | Tele-ICU Progress Note ---
Subjective Date Seen by a Provider: Jan 16, 2023 Time Seen by a Provider: 11:23 Subjective/Events-last exam (Tele-ICU Physician , Progress Note ) Service provided via interactive audio and video telecommunications E-CARE system to a patient admitted to ICU bed in [facility]. Patient is seen today due to persistent need of ICU care Available chart/ vitals / labs / Images reviewed Video assessment done using teleICU camera, rest of exam as per RN Discussed with RN Events overnight : BIPAP a and levo 2.5 h Afebrile hemodynamically stable Respiratory - ra I/O = even Drips: ns 100 Pressors- LEVO off Hospital course: (01/09) 62F Admitted w/ weakness, dehydration, acute cholecystitis w/cholelithiasis, cholangitis. Hypotensive in ER - sepsis protocol initiated (01/10) MRCP shows multiple stones w/i distal CBD and cholelitiasis with GB wall thickening and edema. 01/11- OR ,s/p lap cholecystectomy with intraoperative cholangiogram ,was on levophed transiently and 15 L o2 post op 01/13 -overnigt BIPAP a and levo 2.5 h ra , off levo A/P acute cholecystitis w/cholelithiasis, cholangitis -(01/10) MRCP shows multiple stones w/i distal CBD and cholelitiasis with GB wall thickening and edema. - Zosyn 01/09 -->01/15 , vanco 01/12--> tomorrow consider last day -- s/p lap cholecystectomy with intraoperative cholangiogram 01/11 ( She will need an ERCP as per sx ) Hypotension / Sepsis with Escherichia coli bacteremia due to above - sepsis protocol initiated, responded to fluid , -was on levophed transiently 01/11 and 01/12 night - OFF now - cont abx RIGHT PNA ( new 01/11 , CTchest 01/09 - right lung is clear ) - CXR is better today -= off zosyn , vanco 01/12 - tomorrow consider last day Hypoxia, was on 15 L post op . WORSENING 01/11 -and - BIPAP again 01/13 - with COPD and PNA and VO - was given bumex x1 01/11 and 11/05 - STOP IVF today - onra now ICM with known 3-vessel severe CAD -TTE demonstrates EF 40-45% with akinetic apex, hypokinesis of anteroseptum, grade 3 Diastolic dysfunciton and mild MS - as per cards - on plavix -STOP IVF Thrombocytopenia 111 01/11 ( not on heparins) - stable - on plavix ( on hold for sx) DM II - ISS Seizure dz - cont Keppra IV to po Met acidosis on BNP - follow Lines : periph , (Central Line Necessity Reviewed) Lang: 01/10 OG: Nutrition: as per sx - general Analgesia: Anxiety/ delirium VTE Prophylaxis: scd , shantanu 40 Stress Ulcer Prophylaxis: na Plans in collaboration with bedside consultants and IM MDs. Discussed with RN to reach out if any questions or concerns Case and care discussed with the multidisciplinary (MD, DORYS, RN, PharmD, Nutrition and Respiratory Therapy) ICU service earlier on rounds. A total of 25 minutes of critical care time was devoted to this patient today, required to treat and/or prevent further deterioration of critical care condition ( as above ) . Sepsis Event Evaluation Height, Weight, BMI Height: '" Weight: 146lbs. oz. 66.666269ve; 26.92 BMI Method:Stated Focused Exam Time of Focused Exam: 18:30 Exam Exam Patient acknowledged, consented, and participated in this virtual visit which was conducted using real time audio/video Vital Signs Date Time Temp Pulse Resp B/P (MAP) Pulse Ox O2 Delivery O2 Flow Rate FiO2 01/16/23 11:00 76 31 137/82 (104) 98 Room Air 01/16/23 10:36 97 Room Air 01/16/23 10:12 98 Room Air 01/16/23 10:00 75 18 130/92 (106) 96 Room Air 01/16/23 09:00 73 139/95 (112) 95 Room Air 01/16/23 08:00 95 Room Air 01/16/23 08:00 79 30 129/109 (112) 94 Room Air 01/16/23 07:00 84 107/73 (87) 95 Room Air 01/16/23 07:00 83 01/16/23 06:44 96 Room Air 01/16/23 06:00 80 26 108/75 (86) 95 Room Air 01/16/23 05:00 79 35 105/75 (85) 93 Room Air 01/16/23 04:00 95 Room Air 01/16/23 04:00 79 24 108/73 (85) 95 Room Air 01/16/23 03:00 82 27 95/67 (76) 94 Room Air 01/16/23 02:32 95 Room Air 01/16/23 02:00 78 102/75 (84) 94 Room Air 01/16/23 01:00 80 01/16/23 01:00 80 95 Room Air 01/16/23 00:20 36.2 78 22 75/62 (66) 94 Room Air 0.50 0.50 01/16/23 00:00 98 Room Air 01/16/23 00:00 75 93/77 (82) 93 Room Air 01/15/23 23:00 78 90/64 (73) 94 Room Air 01/15/23 22:22 98 Room Air 01/15/23 22:00 76 92/65 (74) 96 Room Air 01/15/23 21:00 73 96/69 (78) 95 Room Air 01/15/23 20:10 36.2 01/15/23 20:00 80 92/71 (78) 95 Room Air 01/15/23 20:00 95 Room Air 01/15/23 19:00 84 90/69 (76) 95 Room Air 01/15/23 19:00 84 01/15/23 18:49 97 Room Air 01/15/23 18:00 79 90/67 (75) 97 Nasal Cannula 0.50 01/15/23 17:00 78 38 113/98 (100) 97 Nasal Cannula 0.50 01/15/23 16:00 99 01/15/23 16:00 36.3 01/15/23 16:00 75 91/67 (77) 96 Nasal Cannula 0.50 01/15/23 15:00 78 30 92/68 (76) 96 Nasal Cannula 0.50 01/15/23 14:00 78 95/70 (78) 98 Nasal Cannula 0.50 01/15/23 13:00 78 30 94/74 (80) 96 Nasal Cannula 0.50 01/15/23 12:34 79 01/15/23 12:00 77 36 99/72 (81) 97 Nasal Cannula 0.50 01/15/23 12:00 99 Nasal Cannula 01/15/23 11:49 36.0 I & O 01/16/23 07:00 Intake Total 2905 ml Output Total 1100 ml Balance 1805 ml Height & Weight Height: '" Weight: 146lbs. oz. 66.669806up; 26.92 BMI Method:Stated General Appearance: No Apparent Distress HEENT: PERRL/EOMI Neck: Full Range of Motion Respiratory: No Accessory Muscle Use, No Respiratory Distress, Other (Few scattered rhonchi otherwise clear) Cardiovascular: Regular Rate, Rhythm, No Edema, No Gallop, No JVD, No Murmur, Normal Peripheral Pulses Capillary Refill: Less Than 3 Seconds Gastrointestinal: normal bowel sounds, soft Extremity: Normal Inspection, Normal Range of Motion, Non Tender, No Calf Tenderness, No Pedal Edema Neurologic/Psychiatric: Alert, Oriented x3 Skin: Normal Color Lymphatic: No Adenopathy Results Lab Laboratory Tests 01/15/23 03:12 01/16/23 04:22 Assessment/Plan Assessment/Plan 1 WISAM HEWITT MD Jan 16, 2023 11:23
[2023-01-16] MEDS: NOREPINEPHRINE 8 MG/250 ML 250 ML IV SCH (12:53)
[2023-01-16 16:23] VITALS: BP 138/77
[2023-01-16] MEDS: DIPHENOXYLATE/ATROPINE 2.5MG/0.025MG (LOMOTIL) TAB PO PRN (18:34)
[2023-01-16 19:07] VITALS: BP 100/65
[2023-01-16] MEDS: ACETAMINOPHEN 325 MG TABLET PO PRN (20:46)
[2023-01-16] MEDS ORDERED: TROUGH ORDER-PHARMACY XX NR (22:00)
[2023-01-16 23:31] VITALS: BP 102/64
[2023-01-17] VITALS (7 sets, daily range): BP systolic 94–120; BP diastolic 62–86
[2023-01-17] MEDS: RT-ALBUTEROL HFA 8.5 GM INHALER IH SCH ×4 (02:54→22:15)
[2023-01-17] MEDS: DIPHENOXYLATE/ATROPINE 2.5MG/0.025MG (LOMOTIL) TAB PO PRN ×3 (03:03→18:21)
[2023-01-17 04:30] LABS: BASOPHILS % (AUTO) 0 % (0-10); EOSINOPHILS # (AUTO) 0.1 10^3/uL (0.0-0.3); EOSINOPHILS % (AUTO) 6 % (0-10); HEMATOCRIT 27 % (35-52); HEMOGLOBIN 9.1 g/dL (11.5-16.0); LYMPHOCYTES # (AUTO) 0.4 10^3/uL (1.0-4.0); LYMPHOCYTES % (AUTO) 16 % (12-44); MEAN CORPUSCULAR HEMOGLOBIN 32 pg (25-34); MEAN CORPUSCULAR HGB CONC 34 g/dL (32-36); MEAN CORPUSCULAR VOLUME 94 fL (80-99); MEAN PLATELET VOLUME 12.1 fL (9.0-12.2); MONOCYTES # (AUTO) 0.1 10^3/uL (0.0-1.0); MONOCYTES % (AUTO) 5 % (0-12); NEUTROPHILS # (AUTO) 1.6 10^3/uL (1.8-7.8); NEUTROPHILS % (AUTO) 72 % (42-75); PLATELET COUNT 135 10^3/uL (130-400); WHITE BLOOD COUNT 2.2 10^3/uL (4.3-11.0)
[2023-01-17 04:50] LABS: ALBUMIN 2.4 GM/DL (3.2-4.5); BILIRUBIN,TOTAL 0.7 MG/DL (0.1-1.0); CALCIUM 8.5 MG/DL (8.5-10.1); CREATININE SERUM 0.62 MG/DL (0.60-1.30); MAGNESIUM 1.7 MG/DL (1.6-2.4); PHOSPHORUS 2.6 MG/DL (2.3-4.7); POTASSIUM 3.5 MMOL/L (3.6-5.0); TOTAL PROTEIN 5.3 GM/DL (6.4-8.2)
[2023-01-17] MEDS: inSUlin ASPART (NovoLOG) 1 UNIT/0.01 ML (CHARGE PER UNIT) SC SCH ×4 (05:18→20:25)
[2023-01-17 05:32] LABS: SMEAR SCAN COMMENT YES
--- NOTE | 2023-01-17 07:21 | Progress Note - Surgery ---
LEROY CHAVEZ 01/17/23 0721: Subjective Date Seen by a Provider: Jan 17, 2023 Time Seen by a Provider: 07:20 Subjective/Events-last exam Patient lying comfortable in bed, continuing to have dry, rough cough. She notes three episodes of diarrhea since being transferred to med-surg yesterday. She denies abdominal pain, H/V, bloody stool or cough, chest pain, SOB or palpitations. Since 01/15, she has been breathing room air with stable oxygen saturation. Per nursing she has been off pressors since 01/14; this morning her pessures are low 90s / 60s - 70s. Review of Systems General: No Chills, No Night Sweats Pulmonary: No Dyspnea; Cough (mostly dry with occasional mucous production) Cardiovascular: No: Chest Pain, Palpitations Gastrointestinal: Diarrhea (3x since yesterday); No: Nausea, Vomiting, Abdominal Pain Genitourinary: No Dysuria, No Frequency Focused Exam Time of Focused Exam: 18:30 Objective Exam Vital Signs Date Time Temp Pulse Resp B/P (MAP) Pulse Ox O2 Delivery O2 Flow Rate FiO2 01/17/23 06:54 36.0 76 96 01/17/23 03:58 36.0 76 16 102/69 (80) 96 Room Air 01/17/23 02:54 95 Room Air 01/16/23 23:31 36.3 76 18 102/64 (77) 96 Room Air 01/16/23 21:35 96 Room Air 01/16/23 20:00 Room Air 01/16/23 19:07 36.9 83 20 100/65 (77) 97 Room Air 01/16/23 18:48 96 Room Air 01/16/23 16:23 36.6 80 22 138/77 (97) 97 Room Air 01/16/23 15:01 96 Room Air 01/16/23 14:00 77 141/90 (106) 99 Room Air 01/16/23 13:00 79 01/16/23 13:00 78 31 134/84 (107) 98 Room Air 01/16/23 12:00 75 21 132/88 (103) 100 Room Air 01/16/23 12:00 97 Room Air 01/16/23 11:00 76 31 137/82 (104) 98 Room Air 01/16/23 10:36 97 Room Air 01/16/23 10:12 98 Room Air 01/16/23 10:00 75 18 130/92 (106) 96 Room Air 01/16/23 09:00 73 139/95 (112) 95 Room Air 01/16/23 08:00 95 Room Air 01/16/23 08:00 79 30 129/109 (112) 94 Room Air I & O 01/17/23 07:00 Intake Total 3205 ml Output Total 1600 ml Balance 1605 ml Capillary Refill : Less Than 3 Seconds General Appearance: No Apparent Distress HEENT: Pharynx Normal, Moist Mucous Membranes Respiratory: No Accessory Muscle Use, No Respiratory Distress, Decreased Breath Sounds (throughout right lunb), Other (Few scattered rhonchi otherwise clear) Cardiovascular: Regular Rate, Rhythm, No Murmur Gastrointestinal: normal bowel sounds, soft, other (surgical incisions healing well) Extremity: Non Tender, No Calf Tenderness, No Pedal Edema Neurologic/Psychiatric: Alert, Oriented x3 Skin: Normal Color Lymphatic: No Adenopathy (cervical) Results Lab Laboratory Tests 01/16/23 11:24: Glucometer 138H 01/16/23 16:26: Glucometer 125H 01/16/23 19:48: Glucometer 121H 01/16/23 22:05: Vancomycin Level Trough 15.7 01/17/23 04:20: White Blood Count 2.2L, Red Blood Count 2.87L, Hemoglobin 9.1L, Hematocrit 27L, Mean Corpuscular Volume 94, Mean Corpuscular Hemoglobin 32, Mean Corpuscular H emoglobin Concent 34, Red Cell Distribution Width 13.2, Platelet Count 135, Mean Platelet Volume 12.1, Immature Granulocyte % (Auto) 1, Neutrophils (%) (Auto) 72, Lymphocytes (%) (Auto) 16, Monocytes (%) (Auto) 5, Eosinophils (%) (Auto) 6, Basophils (%) (Auto) 0, Neutrophils # (Auto) 1.6L, Lymphocytes # (Auto) 0.4L, Monocytes # (Auto) 0.1, Eosinophils # (Auto) 0.1, Basophils # (Auto) 0.0, Immature Granulocyte # (Auto) 0.0, Sodium Level 139, Potassium Level 3.5L, Chloride Level 111H, Carbon Dioxide Level 16L, Anion Gap 12, Blood Urea Nitrogen 7, Creatinine 0.62, Estimat Glomerular Filtration Rate 102, BUN/Creatinine Ratio 11, Glucose Level 105, Calcium Level 8.5, Corrected Calcium 9.8, Phosphorus Level 2.6, Magnesium Level 1.7, Total Bilirubin 0.7, Aspartate Amino Transf (AST/SGOT) 21, Alanine Aminotransferase (ALT/SGPT) 54, Alkaline Phosphatase 163H , Total Protein 5.3L, Albumin 2.4L, Smear Scan YES Microbiology 01/12/23 Urine Culture - Final, Complete NO GROWTH 01/12/23 Blood Culture - Preliminary, Resulted No growth 01/10/23 MRSA Screen - Final, Complete MRSA not isolated Assessment/Plan Assessment/Plan Assessment/Plan s/p laparoscopic cholecystectomy and IOC with choledocholithiasis. T michelle normalized and stones reduced on own leukopenia (WBC 2.3 today) hypotensive episodes likely due to pneumonia. cont abx. cont resp with IS and breathing tx. Clinical Quality Measures DVT/VTE Risk/Contraindication: Contraindications-Pharm: Other *list below* Other: OR MILO MCDONOUGH DO 01/17/231918: Subjective Subjective/Events-last exam Patient feeling better. Not having very much pain. Tolerating diet. Wanting to go home soon. Has been having some issues with blood pressure being low at night. + Diarrhea. Patient bilirubin improved. Denies n/v fever sweats chills shortness of breath or chest pain. Objective Exam General Appearance: No Apparent Distress HEENT: PERRL/EOMI, Normal ENT Inspection Neck: Normal Inspection, Non Tender Respiratory: Chest Non Tender, No Accessory Muscle Use, No Respiratory Distress Cardiovascular: Regular Rate, Rhythm, No JVD Gastrointestinal: normal bowel sounds, soft Extremity: Non Tender, No Calf Tenderness Neurologic/Psychiatric: Alert, Oriented x3 Skin: Normal Color, Warm/Dry Lymphatic: No Adenopathy (cervical) Assessment/Plan Assessment/Plan Assessment/Plan s/p laparoscopic cholecystectomy and IOC with choledocholithiasis. T michelle normalized and stones COULD HAVE PASSED STONES, OR NOT OBSTRUCTING AT THIS TIME, WOULD CONSIDER REPEATING MRCP OR ERCP OUTPATIENT VS INPATIENT leukopenia (WBC 2.3 today) hypotensive episodes likely due to pneumonia. cont abx. cont resp with IS and breathing tx. Supervisory-Addendum Brief Verification & Attestation Participated in pt care: history, MDM, physical Personally performed: exam, history, MDM, supervision of care Care discussed with: Medical Student Procedures: n/a Results interpretation: Verified all documentation Verification and Attestation of Medical Student E/M Service A medical student performed and documented this service in my presence. I reviewed and verified all information documented by the medical student and made modifications to such information, when appropriate. I personally performed the physical exam and medical decision making. Milo Mcdonough, Jan 17, 2023,19:19 LEROY CHAVEZ Jan 17, 2023 07:21 MILO MCDONOUGH DO Jan 17, 2023 19:19
[2023-01-17] MEDS: SENNOSIDES 8.6 MG (SENOKOT) TAB PO SCH ×2 (08:03→20:15)
[2023-01-17] MEDS: DOCUSATE SODIUM 100 MG (COLACE) CAP PO SCH ×2 (08:03→20:15)
[2023-01-17] MEDS: CLOPIDOGREL 75 MG (PLAVIX) TABLET PO SCH (08:14)
[2023-01-17] MEDS: PANTOPRAZOLE 40 MG (PROTONIX) VIAL IV SCH (08:15)
[2023-01-17] MEDS: ENOXAPARIN 40 MG/0.4 ML (LOVENOX) SYR SC SCH (08:15)
--- NOTE | 2023-01-17 08:28 | Diagnostic Imaging Report ---
INDICATION: Sepsis Frontal chest obtained at 3:42 a.m. and compared with 01/16/2023. There is cardiomegaly. There is diffuse interstitial edema and central vascular congestion with diffuse bilateral infiltrate. The findings may represent pneumonia or CHF. There is no change in left pleural effusion. There is no pneumothorax. Right-sided PICC line is unchanged IMPRESSION: Unchanged cardiomegaly with vascular congestion and diffuse infiltrates. Unchanged left pleural effusion. Dictated by: Dictated on workstation # [id number]
[2023-01-17] MEDS: VANCOMYCIN 125 MG CAPSULE PO SCH ×4 (09:31→20:15)
--- NOTE | 2023-01-17 09:31 | Physical Therapy Daily Note ---
PT Daily Note-Current Subjective Patient more alert and cooperative on this date. Pain Section J - Health Conditions 1. Rarely or not at all 2. Occasionally 3. Frequently 4. Almost constantly 8. Unable to answer Pain Effect on Sleep: 1 Pain Interference with Therapy: 1 Pain Interference w/Day-to-Day: 1 Mental Status Patient Orientation: Person, Time, Situation Attachments: Lang Catheter Transfers SCALE: Activities may be completed with or without assistive devices. 5-Mxsmlgtykk-udybcck completes the activity by him/herself with no assistance from a helper. 5-Set-up or Clean-up Assistance-helper sets up or cleans up; patient completes activity. Harrison assists only prior to or following the activity. 4-Supervision or Touching Assistance-helper provides verbal cues and/or touching/steadying and/or contact guard assistance as patient completes activity. Assistance may be provided throughout the activity or intermittently. 3-Partial/Moderate Assistance-helper does LESS THAN HALF the effort. Harrison lifts, holds or supports trunk or limbs, but provides less than half the effort. 2-Substantial/Maximal Assistance-helper does MORE THAN HALF the effort. Harrison lifts or holds trunk or limbs and provides more than half the effort. 8-Khbukvteu-ttbawj does ALL the effort. Patient does none of the effort to complete the activity. Or, the assistance of 2 or more helpers is required for the patient to complete the activity. If activity was not attempted, code reason: 7-Patient Refused. 9-Not Applicable-not attempted and the patient did not perform the activity before the current illness, exacerbation or injury. 10-Not Attempted due to Environmental Limitations-(lack of equipment, weather restraints, etc.). 88-Not Attempted due to Medical Conditions or Safety Concerns. Lying to Sitting/Side of Bed(Q: 6 Sit to Stand (QC): 4 Chair/Tvk-zt-Iozyt Xfer(QC): 4 Gait Training Distance: 150' Walk 10 feet (QC): 4 (CGA) Walk 50 ft with 2 Turns(QC): 4 (CGA) Walk 150 ft (QC): 4 (CGA) Gait Assistive Device: FWW slow, slightly unsteady gait sequence Assessment Patient tolerated treatment well and is up in recliner with needs met. PT to continue to increase activity as tolerated by patient. PT Fpc Goals Fpc Goals PT Fpc Goals Time Frame: Jan 29, 2023 Roll Left & Right (QC): 6 Sit to Lying (QC): 6 Lying-Sitting on Side/Bed(QC): 6 Sit to Stand (QC): 6 Chair/Xeo-pk-Rhwij Xfer(QC): 6 Toilet Transfer (QC): 6 Walk 10 feet (QC): 4 Walk 50ft with 2 Turns (QC): 4 Walk 150 ft (QC): 4 PT Plan Treatment/Plan Treatment Plan: Continue Plan of Care Treatment Plan: Bed Mobility, Education, Functional Activity Roya, Functional Strength, Gait, Safety, Therapeutic Exercise, Transfers Treatment Duration: Jan 29, 2023 Frequency: 6 times per week Estimated Hrs Per Day: .25 hour per day Patient and/or Family Agrees t: Yes Time Time In: 733 Time Out: 745 DATE: Jan 17, 2023 Total Billed Treatment Time: 12 Total Billed Treatment 1 visit GT 12 min SORAYA PICKARD PT Jan 17, 2023 09:31
--- NOTE | 2023-01-17 09:55 | Progress Note - Cardiology ---
Cardiology SOAP Progress Note Subjective: Sitting up in recliner at the bedside States she feels much better today No c/o CP or palpitations Feels SOB is improving Reports some LE swelling No c/o n/v/d Objective: I&O/Vital Signs 01/18/23 01/18/23 01/18/23 01/18/23 00:23 03:10 07:12 07:33 Temp 36.4 36.2 Pulse 73 76 Resp 18 18 B/P (MAP) 112/82 (92) 115/85 (95) Pulse Ox 95 97 98 98 O2 Delivery Room Air Room Air Room Air Room Air 01/18/23 07:45 Temp 36.5 Pulse 82 Resp 18 B/P (MAP) 113/75 (88) Pulse Ox 95 O2 Delivery Room Air 01/18/23 00:00 Intake Total 1582 ml Output Total 425 ml Balance 1157 ml Weight (Pounds): 146 Weight (Calculated Kilograms): 66.688933 Constitutional: AAO x 3, well-developed, well-nourished Respiratory: No accessory muscle use, No respiratory distress; chest expansion is symmetric, chest is bilaterally symmetric, other (diminished lower lobes bilat with crackles) Cardiovascular: regular rate-rhythm; No JVD; S1 and S2 Gastrointestional: soft; No guarding; audible bowel sounds Extremities: other (mild bilat LE swelling) Neurologic/Psychiatric: grossly intact (moves all extremities) Skin: normal color, warm/dry; No rash on exposed areas, No ulcerations on ex posed areas Results/Procedures: Labs Laboratory Tests 01/17/23 11:31: Glucometer 164H 01/17/23 15:57: Glucometer 103 01/18/23 05:13: Glucometer 127H 01/18/23 05:28: Sodium Level 141, Potassium Level 3.5L, Chloride Level 111H, Carbon Dioxide Level 20L, Anion Gap 10, Blood Urea Nitrogen 6L, Creatinine 0.59L, Estimat Glomerular Filtration Rate 103, BUN/Creatinine Ratio 10, Glucose Level 130H, Calcium Level 8.6, Corrected Calcium 9.9, Phosphorus Level 2.7, Magnesium Level 1.4L, Total Bilirubin 0.6, Aspartate Amino Transf (AST/SGOT) 18, Alanine Aminotransferase (ALT/SGPT) 46, Alkaline Phosphatase 155H, Total Protein 5.4L, Albumin 2.4L 01/18/23 05:29: White Blood Count 2.9L, Red Blood Count 3.23L, Hemoglobin 10.1L, Hematocrit 30L, Mean Corpuscular Volume 93, Mean Corpuscular Hemoglobin 31, Mean Corpuscular Hemoglobin Concent 34, Red Cell Distribution Width 12.9, Platelet Count 189, Mean Platelet Volume 11.5, Immature Granulocyte % (Auto) 1, Neutrophils (%) (Auto) 75, Lymphocytes (%) (Auto) 14, Monocytes (%) (Auto) 7, Eosinophils (%) (Auto) 3, Basophils (%) (Auto) 1, Neutrophils # (Auto) 2.2, Lymphocytes # (Auto) 0.4L, Monocytes # (Auto) 0.2, Eosinophils # (Auto) 0.1, Basophils # (Auto) 0.0, Immature Granulocyte # (Auto) 0.0 Microbiology 01/16/23 C. difficile GDH Antigen & Toxins - Final, Complete 01/12/23 Urine Culture - Final, Complete NO GROWTH 01/12/23 Blood Culture - Final, Complete No growth 01/10/23 MRSA Screen - Final, Complete MRSA not isolated Procedures NAME: TRISTON NIEVES [facility] REC#: [id number] PT STATUS: ADM IN : 1960 PHYSICIAN: MISSY ORTEGA DO ADMIT DATE: 01/10/23 Signed Date of Exam:01/17/23 CHEST 1 VIEW, AP/PA ONLY INDICATION: Sepsis Frontal chest obtained at 3:42 a.m. and compared with 01/16/2023. There is cardiomegaly. There is diffuse interstitial edema and central vascular congestion with diffuse bilateral infiltrate. The findings may represent pneumonia or CHF. There is no change in left pleural effusion. There is no pneumothorax. Right-sided PICC line is unchanged IMPRESSION: Unchanged cardiomegaly with vascular congestion and diffuse infiltrates. Unchanged left pleural effusion. Dictated by: Dictated on workstation # [id number] Dict: 01/17/2318 Trans: 01/17/23 0859 CV [id number] Interpreted by: SANDHYA FLORES MD Electronically signed by: SANDHYA FLORES MD 01/17/23 0859 A/P: Assessment: Oxn-ML-nizumhaxo myocardial infarction, likely type 2 NSTEMI in the setting of E. coli bacteremia and associated sepsis. - cont to monitor - Troponin downtrended (0.06-0.20-0.12) Pneumonia - management per medical services Cholecystitis - management per Dr. Walker - s/p lap cholecystectomy - recommendation for ERCP as per surgical report - LFTs downtrending Hypotension - resolved - likely d/t sepsis - required pressor support - has been off Sepsis - management per medical services Ischemic CM - TTE demonstrates EF 40-45% with akinetic apex, hypokinesis of anteroseptum, grade 3 Diastolic dysfunction and mild MS (mean MVgradient of 5mmHg with HR of 95bpm) by Dr. Vargas on 01-11-23 Acute on chronic systolic/diastolic CHF H/O CAD - status post AK and PCI in the past with known 3-vessel severe CAD, surgical turn down. HTN Plan: Complex management Sepsis - management per medical services Known CAD - continue antiplatelet tx with Plavix - add low dose ASA - not suitable candidate for BB at this time d/t hypotension which has required IV pressor support - initiate as BP will allow ICM - not suitable candidate for SHEILA/ARB at this time d/t hypotension - initiate as BP will allow Acute on chronic systolic/diastolic CHF - give Lasix Hypokalemia - replace Further recs will be based on her hospital course We have reviewed Dr. Vargas's records TAMMY MIKE Jan 17, 2023 09:55
[2023-01-17] MEDS ORDERED: FUROSEMIDE 40 MG/4 ML INJ (LASIX) IVP ONE (10:15)
[2023-01-17] MEDS ORDERED: KCL 10 MEQ TAB (MICRO K) PO NR (10:30)
--- NOTE | 2023-01-17 12:54 | Progress Note - Hospitalist ---
NASREEN STEVENS 01/17/23 1254: Subjective HPI/CC On Admission Date Seen by Provider: Jan 17, 2023 Time Seen by Provider: 09:00 Per admit HPI: "Triston is a 62 yo F with a history of CAD with stent placements (2009), HFreF, HTN, COPD, DM and tobacco smoking that was brought to the ER on 01/09 on EMS per due to concerns of weakness reported by residential staff. Per ER notes, the patient's review of systems was negative apart from diarrhea, and she was comfortable appearing and mentally intact. An isolated episode of hypotension (systolic dropping from 96 to 80) in the waiting room was reported. A CT of the chest, abdomen and pelvis obtained showed pericholectystic fluid, cholithiasis, and mild dilation of the of the intrahepatic ducts and common bile duct (11 mm). For these findings as well as hypomagnesemia, elevated lactic acid, and elevated liver enzymes, the patient was admitted to [facility] ICU. This morning, she reports that her diarrhea has resolved and she had one solid BM this since this morning. She also states that her weakness has resolved and notes that she has never had an incident like this before and that there was no associated dizziness, weakness, or headache. She smokes 6 cigarettes/day for the past 30 years. Denies EtOH or illicit drug use. She denies abdominal pain, chest pain, SOB or skin changes." Subjective/Events-last exam Pt is sitting up in her recliner this AM. Doing much better she says. She's looking forward to a hot shower now that she is in a room with a shower. She denies SOB, Chest pain, palpitations, nausea/vomiting or abdominal pain. She is still having diarrhea. Had one episode this morning so far, two yesterday. She walked with PT this AM and said it went well. Focused Exam Time of Focused Exam: 18:30 Objective Exam Vital Signs Vital Signs Date Time Temp Pulse Resp B/P (MAP) Pulse Ox O2 Delivery O2 Flow Rate FiO2 01/17/23 12:01 36.4 85 18 117/75 (89) 98 Room Air 01/16/23 00:20 0.50 0.50 01/15/23 04:00 45 Capillary Refill : Less Than 3 Seconds General Appearance: No Apparent Distress HEENT: PERRL/EOMI, Pharynx Normal Neck: Normal Inspection, Non Tender, Supple Respiratory: Lungs Clear (Upper lung ma clear with good air movement), Crackles (Slight lower lobe crackles) Cardiovascular: Regular Rate, Rhythm, No Edema, No Murmur, Systolic Murmur (Grade I-II crescendo-decrescendo) Gastrointestinal: Normal Bowel Sounds, Non Tender, Soft Neurologic/Psychiatric: Alert, Oriented x3 Results/Procedures Lab Laboratory Tests 01/17/23 04:20 Patient resulted labs reviewed. Imaging: Reviewed Imaging Films, Reviewed Imaging Report Radiology NAME: TRISTON NIEVES [facility] REC#: [id number] PT STATUS: ADM IN : 1960 PHYSICIAN: NARGIS ORTEGA DO ADMIT DATE: 01/10/23 Signed Date of Exam:01/17/23 CHEST 1 VIEW, AP/PA ONLY INDICATION: Sepsis Frontal chest obtained at 3:42 a.m. and compared with 01/16/2023. There is cardiomegaly. There is diffuse interstitial edema and central vascular congestion with diffuse bilateral infiltrate. The findings may represent pneumonia or CHF. There is no change in left pleural effusion. There is no pneumothorax. Right-sided PICC line is unchanged IMPRESSION: Unchanged cardiomegaly with vascular congestion and diffuse infiltrates. Unchanged left pleural effusion. Dictated by: Dictated on workstation # [id number] Dict: 01/17/2318 Trans: 01/17/23 0859 CV [id number] Interpreted by: SANDHYA FLORES MD Electronically signed by: SANDHYA FLORES MD 01/17/23 0859 Assessment/Plan Assessment and Plan Assess & Plan/Chief Complaint Assessment: This is a 80 y/o female admitted for sepsis 2/2 ascending cholangitis/cho ledocholithiasis now s/p cholecystectomy day #6 and HD#7 Plan Sepsis Leukopenia Cholangitis Choledocholithiasis Cholecystitis s/p cholecystectomy -T bili, liver enzymes normalizing; IOC suggested incomplete obstruction; likely will not need ERCP as seems that stones have cleared -no pain endorsed -Blood cultures E. coli, pansensitive as of 01/13. Can transition to PO antibio tic -Surgery following Post-operative AHRF PNA -CXR today (01/17) unchanged; cardiomegaly, vascular congestion, edema, left pleural effusion -On appropriate abx coverage -Could benefit from lasix -Continued IS Diarrhea - acute - >3 episodes two days ago -C-diff toxin negative, ag+ -Given clinical picture will start treatment for C. diff colitis -QID PO Vanc 125mg FEN/GI -Replacing electrolytes as needed -Regular diet -PPI -Hold bowel regimen for diarrhea -UOP 0.72 ml/kg/hr DVT PPx: Lovenox Clinical Quality Measures DVT/VTE Risk/Contraindication: Contraindications-Pharm: Other *list below* Other: OR NARGIS ORTEGA DO 01/18/23 0449: Supervisory-Addendum Brief Verification & Attestation Participated in pt care: history, MDM, physical Personally performed: exam, history, MDM, supervision of care Care discussed with: Medical Student Procedures: n/a Results interpretation: Verified all documentation Verification and Attestation of Medical Student E/M Service A medical student performed and documented this service in my presence. I reviewed and verified all information documented by the medical student and made modifications to such information, when appropriate. I personally performed the physical exam and medical decision making. Nargis Ortega, Jan 18, 2023,04:49 NASREEN STEVENS Jan 17, 2023 12:54 NARGIS ORTEGA DO Jan 18, 2023 04:49
[2023-01-17] MEDS: ACETAMINOPHEN 325 MG TABLET PO PRN (16:07)
--- NOTE | 2023-01-17 16:39 | Occupational Therapy Eval ---
OT Evaluation-General/PLF Medical Diagnosis Admission Date Jan 10, 2023 at 06:14 Medical Diagnosis: cholecystitis Onset Date: Jan 10, 2023 Therapy Diagnosis Therapy Diagnosis: weakness Height/Weight Weight (Pounds): 146 Precautions Precautions/Isolations: Standard Precautions Weight Bear Status Weight Bearing Restriction: Full Weight Bearing Referral Physician: Demetrice Saucedo Reason: Evaluation/Treatment Medical History Pertinent Medical History: CABG, CAD, COPD, DM, Heart Failure, HTN, PVD, Renal Insufficiency Reviewed History: Yes Social History Home: Senior Living ADL-Prior Level of Function SCALE: Activities may be completed with or without assistive devices. 8-Dsebffumjp-upgvadg completes the activity by him/herself with no assistance from a helper. 5-Set-up or Clean-up Assistance-helper sets up or cleans up; patient completes activity. [place] assists only prior to or following the activity. 4-Supervision or Touching Assistance-helper provides verbal cues and/or touching/steadying and/or contact guard assistance as patient completes activity. Assistance may be provided throughout the activity or intermittently. 3-Partial/Moderate Assistance-helper does LESS THAN HALF the effort. [place] lifts, holds or supports trunk or limbs, but provides less than half the effort. 2-Substantial/Maximal Assistance-helper does MORE THAN HALF the effort. [place] lifts or holds trunk or limbs and provides more than half the effort. 6-Pdmknvoai-wpeskh does ALL the effort. Patient does none of the effort to complete the activity. Or, the assistance of 2 or more helpers is required for the patient to complete the activity. If activity was not attempted, code reason: 7-Patient Refused. 9-Not Applicable-not attempted and the patient did not perform the activity before the current illness, exacerbation or injury. 10-Not Attempted due to Environmental Limitations-(lack of equipment, weather restraints, etc.). 88-Not Attempted due to Medical Conditions or Safety Concerns. Self Care: Independent Functional Cognition: Independent Drive Self: No OT Current Status Subjective Agreeable to OT Mental Status/Objective Patient Orientation: Person, Place, Time, Situation Attachments: IV (port only) Current Glasses/Contacts: Yes Upper Extremity ROM BUE ROM WFLS Upper Extremity Strength -4/5 grossly ADL-Treatment Eating (QC): 6 Oral Hygiene (QC): 6 Shower/Bathe Self (QC): 7 Upper Body Dressing (QC): 6 Lower Body Dressing (QC): 6 On/Off Footwear (QC): 6 Toileting Hygiene (QC): 6 Patient wearing her own clothes Education OT Patient Education: Correct positioning, Energy conservation, Safety issues Teaching Recipient: Patient Teaching Methods: Demonstration, Discussion Response to Teaching: Verbalize Understanding OT Elevator Runner Goals Elevator Runner Goals 1=Demonstrate adherence to instructed precautions during ADL tasks. 2=Patient will verbalize/demonstrate understanding of assistive devices/modifications for ADL. 3=Patient will improve strength/tolerance for activity to enable patient to perform ADL's. OT Education/Plan Problem List/Assessment Assessment: No Skilled OT Needs ID'd Discharge Recommendations Plan/Recommendations: Discontinue OT Therapy Discharge Recommendati: Other, See Comments (return to DC) Treatment Plan/Plan of Care Patient would benefit from OT for education, treatment and training to promote independence in ADL's, mobility, safety and/or upper extremity function for ADL's. Plan of Care: OTHER (EVAL ONLY) Treatment Duration: Jan 17, 2023 Frequency: 1 time per week Rehab Potential: Fair Time Start Time: 15:15 Stop Time: 15:27 DATE: Jan 17, 2023 Total Time Billed (hr/min): 17 Billed Treatment Time EVL 17 min LINH DIAS OT Jan 17, 2023 16:39
--- NOTE | 2023-01-17 17:36 | Progress Note - Cardiology ---
Cardiology SOAP Progress Note Subjective: No cp or palp or syncope or shortness of breath No n/v/d Objective: I&O/Vital Signs 01/17/23 01/17/23 01/17/23 01/17/23 06:54 07:43 08:00 08:11 Temp 36.0 36.5 Pulse 76 86 Resp 18 B/P (MAP) 115/83 (94) Pulse Ox 96 96 98 98 O2 Delivery Room Air Room Air Room Air 01/17/23 01/17/23 01/17/23 12:01 15:26 15:37 Temp 36.4 36.4 Pulse 85 79 Resp 18 20 B/P (MAP) 117/75 (89) 120/86 (97) Pulse Ox 98 95 98 O2 Delivery Room Air Room Air Room Air 01/17/23 00:00 Intake Total 600 ml Output Total 650 ml Balance -50 ml Weight (Pounds): 146 Weight (Calculated Kilograms): [id number] Constitutional: AAO x 3, well-developed, well-nourished Respiratory: No accessory muscle use, No respiratory distress; chest expansion is symmetric, chest is bilaterally symmetric, other (diminished lower lobes bilat with crackles) Cardiovascular: regular rate-rhythm; No JVD; S1 and S2 Gastrointestional: soft; No guarding; audible bowel sounds Extremities: other (mild bilat LE swelling) Neurologic/Psychiatric: other (moves all limbs equally) Skin: normal color, warm/dry; No rash on exposed areas, No ulcerations on exposed areas Results/Procedures: Labs Laboratory Tests 01/16/23 19:48: Glucometer 121H 01/16/23 22:05: Vancomycin Level Trough 15.7 01/17/23 04:20: White Blood Count 2.2L, Red Blood Count 2.87L, Hemoglobin 9.1L, Hematocrit 27L, Mean Corpuscular Volume 94, Mean Corpuscular Hemoglobin 32, Mean Corpuscular Hemoglobin Concent 34, Red Cell Distribution Width 13.2, Platelet Count 135, Mean Platelet Volume 12.1, Immature Granulocyte % (Auto) 1, Neutrophils (%) (Auto) 72, Lymphocytes (%) (Auto) 16, Monocytes (%) (Auto) 5, Eosinophils (%) (Auto) 6, Basophils (%) (Auto) 0, Neutrophils # (Auto) 1.6L, Lymphocytes # (Auto) 0.4L, Monocytes # (Auto) 0.1, Eosinophils # (Auto) 0.1, Basophils # (Auto) 0.0, Immature Granulocyte # (Auto) 0.0, Sodium Level 139, Potassium Level 3.5L, Chloride Level 111H, Carbon Dioxide Level 16L, Anion Gap 12, Blood Urea Nitrogen 7, Creatinine 0.62, Estimat Glomerular Filtration Rate 102, B UN/Creatinine Ratio 11, Glucose Level 105, Calcium Level 8.5, Corrected Calcium 9.8, Phosphorus Level 2.6, Magnesium Level 1.7, Total Bilirubin 0.7, Aspartate Amino Transf (AST/SGOT) 21, Alanine Aminotransferase (ALT/SGPT) 54, Alkaline Phosphatase 163H, Total Protein 5.3L, Albumin 2.4L, Smear Scan YES 01/17/23 11:31: Glucometer 164H 01/17/23 15:57: Glucometer 103 Microbiology 01/16/23 C. difficile GDH Antigen & Toxins - Final, Complete 01/12/23 Urine Culture - Final, Complete NO GROWTH 01/12/23 Blood Culture - Final, Complete No growth 01/10/23 MRSA Screen - Final, Complete MRSA not isolated Laboratory Tests 01/16/23 04:22 01/17/23 04:20 A/P: Assessment: [id number] myocardial infarction, likely type 2 NSTEMI in the setting of E. coli bacteremia and associated sepsis. - cont to monitor - Troponin downtrended (0.06-0.20-0.12) Pneumonia - management per Medical services Cholecystitis - management per Dr. Walker - s/p lap cholecystectomy - recommendation for ERCP as per surgical report - LFTs downtrending Hypotension - resolved - likely d/t sepsis - required pressor support - has been off Sepsis and mild to mod leukopenia and anemia - management per Medical services Ischemic CM - TTE demonstrates EF 40-45% with akinetic apex, hypokinesis of anteroseptum, grade 3 Diastolic dysfunction and mild MS (mean MVgradient of 5mmHg with HR of 95bpm) by Dr. Vargas on 01-11-23 Acute on chronic systolic/diastolic CHF H/O CAD - status post NJ and PCI in the past with known 3-vessel severe CAD, surgical turn down. HTN Plan: Complex management Sepsis - management per medical services Known CAD - continue antiplatelet tx with Plavix - add low dose ASA - not suitable candidate for BB at this time d/t hypotension which has required IV pressor support - initiate as BP will allow ICM - not suitable candidate for SHEILA/ARB at this time d/t hypotension - initiate as BP will allow Acute on chronic systolic/diastolic CHF - give Lasix Hypokalemia - replace Further recs will be based on her hospital course We have reviewed Dr. Vargas's records NANCY MAYES MD FACP FAC CCDS Jan 17, 2023 17:36
[2023-01-17] MEDS: meTOprolol TARTRATE 25 MG (LOPRESSOR) TABLET PO SCH (20:19)
[2023-01-18 00:23] VITALS: BP 112/82
[2023-01-18 03:10] VITALS: BP 115/85
[2023-01-18 05:46] LABS: BASOPHILS % (AUTO) 1 % (0-10); EOSINOPHILS # (AUTO) 0.1 10^3/uL (0.0-0.3); EOSINOPHILS % (AUTO) 3 % (0-10); HEMATOCRIT 30 % (35-52); HEMOGLOBIN 10.1 g/dL (11.5-16.0); LYMPHOCYTES # (AUTO) 0.4 10^3/uL (1.0-4.0); LYMPHOCYTES % (AUTO) 14 % (12-44); MEAN CORPUSCULAR HEMOGLOBIN 31 pg (25-34); MEAN CORPUSCULAR HGB CONC 34 g/dL (32-36); MEAN CORPUSCULAR VOLUME 93 fL (80-99); MEAN PLATELET VOLUME 11.5 fL (9.0-12.2); MONOCYTES # (AUTO) 0.2 10^3/uL (0.0-1.0); MONOCYTES % (AUTO) 7 % (0-12); NEUTROPHILS # (AUTO) 2.2 10^3/uL (1.8-7.8); NEUTROPHILS % (AUTO) 75 % (42-75); PLATELET COUNT 189 10^3/uL (130-400); WHITE BLOOD COUNT 2.9 10^3/uL (4.3-11.0)
[2023-01-18] MEDS: inSUlin ASPART (NovoLOG) 1 UNIT/0.01 ML (CHARGE PER UNIT) SC SCH ×2 (05:46→12:09)
[2023-01-18 06:02] LABS: ALBUMIN 2.4 GM/DL (3.2-4.5); BILIRUBIN,TOTAL 0.6 MG/DL (0.1-1.0); CALCIUM 8.6 MG/DL (8.5-10.1); CREATININE SERUM 0.59 MG/DL (0.60-1.30); MAGNESIUM 1.4 MG/DL (1.6-2.4); PHOSPHORUS 2.7 MG/DL (2.3-4.7); POTASSIUM 3.5 MMOL/L (3.6-5.0); TOTAL PROTEIN 5.4 GM/DL (6.4-8.2)
--- NOTE | 2023-01-18 07:03 | Progress Note - Surgery ---
LEROY CHAVEZ 01/18/23 0703: Subjective Date Seen by a Provider: Jan 18, 2023 Time Seen by a Provider: 07:10 Subjective/Events-last exam Continues to have diarrhea and frequent dry cough. She states she is able to walk to the restroom without difficulty. She appears weaker and more uncomfortable during today's assessment than previously; she is able to identify the year and her current location but does not know the month or current president. She denies abdominal pain, N/V, chest pain, palpitations, SOB, or dizziness. Review of Systems General: No Chills, No Night Sweats Pulmonary: Cough (mostly dry with occasional mucous production) Cardiovascular: No: Chest Pain, Palpitations Gastrointestinal: Diarrhea; No: Vomiting, Abdominal Pain Genitourinary: No Dysuria, No Frequency Focused Exam Time of Focused Exam: 18:30 Objective Exam Vital Signs Date Time Temp Pulse Resp B/P (MAP) Pulse Ox O2 Delivery O2 Flow Rate FiO2 01/18/23 03:10 36.2 76 18 115/85 (95) 97 Room Air 01/18/23 00:23 36.4 73 18 112/82 (92) 95 Room Air 01/17/23 22:15 96 Room Air 01/17/23 20:15 Room Air 01/17/23 20:08 76 94/62 (73) 01/17/23 19:49 36.4 76 20 104/73 (83) 96 Room Air 01/17/23 15:37 36.4 79 20 120/86 (97) 98 Room Air 01/17/23 15:26 95 Room Air 01/17/23 12:01 36.4 85 18 117/75 (89) 98 Room Air 01/17/23 08:11 36.5 86 18 115/83 (94) 98 Room Air 01/17/23 08:00 98 Room Air 01/17/23 07:43 96 Room Air I & O 01/18/23 07:00 Intake Total 2104 ml Output Total 425 ml Balance 1679 ml Capillary Refill : Less Than 3 Seconds General Appearance: No Apparent Distress HEENT: Normal ENT Inspection, Pharynx Normal Neck: Non Tender, Supple Respiratory: Chest Non Tender, No Accessory Muscle Use, No Respiratory Distress, Decreased Breath Sounds (left lung base) Cardiovascular: Regular Rate, Rhythm, No JVD Gastrointestinal: normal bowel sounds, non tender, soft Extremity: No Calf Tenderness, No Pedal Edema Neurologic/Psychiatric: Alert, Oriented x3 Skin: Normal Color, Warm/Dry Lymphatic: No Adenopathy (cervical) Results Lab Laboratory Tests 01/17/23 11:31: Glucometer 164H 01/17/23 15:57: Glucometer 103 01/18/23 05:13: Glucometer 127H 01/18/23 05:28: Sodium Level 141, Potassium Level 3.5L, Chloride Level 111H, Carbon Dioxide Level 20L, Anion Gap 10, Blood Urea Nitrogen 6L, Creatinine 0.59L, Estimat Glomerular Filtration Rate 103, BUN/Creatinine Ratio 10, Glucose Level 130H, Calcium Level 8.6, Corrected Calcium 9.9, Phosphorus Level 2.7, Magnesium Level 1.4L, Total Bilirubin 0.6, Aspartate Amino Transf (AST/SGOT) 18, Alanine Aminotransferase (ALT/SGPT) 46, Alkaline Phosphatase 155H, Total Protein 5.4L, Albumin 2.4L 01/18/23 05:29: White Blood Count 2.9L, Red Blood Count 3.23L, Hemoglobin 10.1L, Hematocrit 30L, Mean Corpuscular Volume 93, Mean Corpuscular Hemoglobin 31, Mean Corpuscular Hemoglobin Concent 34, Red Cell Distribution Width 12.9, Platelet Count 189, Mean Platelet Volume 11.5, Immature Granulocyte % (Auto) 1, Neutrophils (%) (Auto) 75, Lymphocytes (%) (Auto) 14, Monocytes (%) (Auto) 7, Eosinophils (%) (Auto) 3, Basophils (%) (Auto) 1, Neutrophils # (Auto) 2.2, Lymphocytes # (Auto) 0.4L, Monocytes # (Auto) 0.2, Eosinophils # (Auto) 0.1, Basophils # (Auto) 0.0, Immature Granulocyte # (Auto) 0.0 Microbiology 01/16/23 C. difficile GDH Antigen & Toxins - Final, Complete 01/12/23 Urine Culture - Final, Complete NO GROWTH 01/12/23 Blood Culture - Final, Complete No growth 01/10/23 MRSA Screen - Final, Complete MRSA not isolated Assessment/Plan Assessment/Plan Assessment/Plan s/p laparoscopic cholecystectomy and IOC with choledocholithiasis. T michelle normalized and stones COULD HAVE PASSED STONES, OR NOT OBSTRUCTING AT THIS TIME, WOULD CONSIDER REPEATING MRCP OR ERCP OUTPATIENT VS INPATIENT leukopenia (WBC 2.9 today) hypotensive episodes likely due to pneumonia. cont abx. cont resp with IS and breathing tx. Clinical Quality Measures DVT/VTE Risk/Contraindication: Contraindications-Pharm: Other *list below* Other: OR MILO MCDONOUGH DO 01/18/234: Subjective Subjective/Events-last exam Feeling better. Tolerating diet. Sitting in chair. Wanting to go home. Denies n/v fever sweats chills shortness of breath or chest pain. Objective Exam General Appearance: No Apparent Distress HEENT: PERRL/EOMI, Normal ENT Inspection Neck: Non Tender, Supple Respiratory: Chest Non Tender, No Accessory Muscle Use, No Respiratory Distress Cardiovascular: Regular Rate, Rhythm, No JVD Gastrointestinal: non tender, soft, other (incisions c/d/i) Extremity: No Calf Tenderness Neurologic/Psychiatric: Alert, Oriented x3 Skin: Normal Color, Warm/Dry Lymphatic: No Adenopathy (cervical) Assessment/Plan Assessment/Plan Assessment/Plan s/p laparoscopic cholecystectomy and IOC with choledocholithiasis. T michelle normalized and stones COULD HAVE PASSED STONES, OR NOT OBSTRUCTING AT THIS TIME, WOULD CONSIDER REPEATING MRCP OR ERCP OUTPATIENT VS INPATIENT leukopenia (WBC 2.9 today) Toleating diet. Pain control Supervisory-Addendum Brief Verification & Attestation Participated in pt care: history, MDM, physical Personally performed: exam, history, MDM, supervision of care Care discussed with: Medical Student Procedures: n/a Results interpretation: Verified all documentation Verification and Attestation of Medical Student E/M Service A medical student performed and documented this service in my presence. I reviewed and verified all information documented by the medical student and made modifications to such information, when appropriate. I personally performed the physical exam and medical decision making. Milo Mcdonough Jan 18, 2023,18:44 LEROY CHAVEZ Jan 18, 2023 07:03 MILO MCDONOUGH DO Jan 18, 2023 18:44
[2023-01-18] MEDS: RT-ALBUTEROL HFA 8.5 GM INHALER IH SCH (07:12)
[2023-01-18 07:45] VITALS: BP 113/75
[2023-01-18] MEDS: ENOXAPARIN 40 MG/0.4 ML (LOVENOX) SYR SC SCH (07:56)
[2023-01-18] MEDS: PANTOPRAZOLE 40 MG (PROTONIX) VIAL IV SCH (07:56)
[2023-01-18] MEDS: DIPHENOXYLATE/ATROPINE 2.5MG/0.025MG (LOMOTIL) TAB PO PRN (07:56)
[2023-01-18] MEDS: meTOprolol TARTRATE 25 MG (LOPRESSOR) TABLET PO SCH (07:56)
[2023-01-18] MEDS: CLOPIDOGREL 75 MG (PLAVIX) TABLET PO SCH (07:56)
[2023-01-18] MEDS: VANCOMYCIN 125 MG CAPSULE PO SCH ×2 (07:57→12:09)
--- NOTE | 2023-01-18 08:17 | Diagnostic Imaging Report ---
INDICATION: Sepsis Frontal chest obtained at 5:50 a.m. and compared to yesterday. There is cardiomegaly. There is extensive bilateral infiltrate. There is diffuse central vascular congestion. There is increasing left pleural fluid compared to the prior study. There is no pneumothorax. Right-sided PICC line is unchanged. IMPRESSION: Unchanged extensive bilateral infiltrates and central vascular congestion with edema. A mild increase in left pleural effusion compared to the prior study. No pneumothorax. Dictated by: Dictated on workstation # [id number]
[2023-01-18] MEDS ORDERED: ASPIRIN 81 MG CHEW (CHILDREN'S ASA) PO SCH (09:00)
[2023-01-18] MEDS ORDERED: lisINopril 5 MG (PRINIVIL) TABLET PO SCH (09:00)
[2023-01-18] MEDS ORDERED: VANC125C5 PO (10:27)
[2023-01-18] MEDS ORDERED: METO-333 PO (10:27)
[2023-01-18] MEDS ORDERED: ASPI81TA64 PO (10:27)
[2023-01-18] MEDS ORDERED: OXC5T PO (10:27)
[2023-01-18] MEDS ORDERED: LISI5TAB20 PO (10:27)
--- NOTE | 2023-01-18 10:29 | Discharge Inst-Skilled Nursing ---
Discharge Inst-Skilled NF Reconcile Patient Problems Problems Reviewed?: Yes Chief Complaint Per admit HPI: "Gretta is a 62 yo F with a history of CAD with stent placements (2009), HFreF, HTN, COPD, DM and tobacco smoking that was brought to the ER on 01/09 on EMS per due to concerns of weakness reported by skilled nursing staff. Per ER notes, the patient's review of systems was negative apart from diarrhea, and she was comfortable appearing and mentally intact. An isolated episode of hypotension (systolic dropping from 96 to 80) in the waiting room was reported. A CT of the chest, abdomen and pelvis obtained showed pericholectystic fluid, cholithiasis, and mild dilation of the of the intrahepatic ducts and common bile duct (11 mm). For these findings as well as hypomagnesemia, elevated lactic acid, and elevated liver enzymes, the patient was admitted to [facility] ICU. This morning, she reports that her diarrhea has resolved and she had one s olid BM this since this morning. She also states that her weakness has resolved and notes that she has never had an incident like this before and that there was no associated dizziness, weakness, or headache. She smokes 6 cigarettes/day for the past 30 years. Denies EtOH or illicit drug use. She denies abdominal pain, chest pain, SOB or skin changes. Patient Instructions Patient Problems: Debility Consult/Follow Up/Orders Follow Up Appt.: Dr Walker 1 week Skilled NF Admit to: [facility] Certification (SNF) I certify that SNF services are required to be given on an inpatient basis because of the above named patient's need for fci care on a continuing basis for the conditions(s) for which he/she was receiving inpatient hospital services prior to his/her transfer to the SNF. Care Home Facility Order: Nursing Services, Tabular Typist-Evaluate & Treat, Physical Therapy-Evaluate & Treat Oxygen Delivery Method: Room Air Discharge Diet: No Restrictions Resuscitation Status: Full Code New & Resume Previous Orders New Medications: Aspirin (Children's Aspirin) 81 Mg Tab.chew 81 MG PO DAILY, #30 TAB Lisinopril (Lisinopril) 5 Mg Tablet 2.5 MG PO DAILY, #30 TAB Metoprolol Tartrate (Metoprolol Tartrate) 25 Mg Tablet 12.5 MG PO BID, #60 TAB Oxycodone Hcl (Oxyir Tablet) 5 Mg Tab 5 MG PO Q4HR PRN for PAIN-SEE DOSE INSTRUCTIONS, #10 TAB Vancomycin HCl (Vancomycin HCl) 125 Mg Capsule 125 MG PO QID, #40 CAP Continued Medications: Acetaminophen (Tylenol Extra Strength) 500 Mg Tablet 1000 MG PO BID, TAB Acetaminophen (Tylenol Extra Strength) 500 Mg Tablet 1000 MG PO Q6H PRN for PAIN-MILD (1-4) OR TEMPATURE, TAB Albuterol Sulfate (Albuterol Sulfate) 2.5 Mg/3 Ml (0.083 %) Vial.neb 3 ML NEB Q12H PRN for SHORTNESS OF BREATH, EA Atorvastatin Calcium (Atorvastatin Calcium) 80 Mg Tablet 80 MG PO 1800, TAB Bumetanide (Bumetanide) 1 Mg Tablet 1 MG PO DAILY, TAB Clopidogrel Bisulfate (Clopidogrel) 75 Mg Tablet 75 MG PO DAILY, TAB Glipizide (Glipizide) 5 Mg Tablet 2.5 MG PO DAILY- 30 MINUTES BEFORE AM MEAL, TAB TAKES OF A 5MG TAB Guaifenesin (Guaifenesin) 100 Mg/5 Ml Liquid 5 ML PO Q4H PRN for COUGH, EA Levetiracetam (Levetiracetam) 500 Mg Tablet 500 MG PO 0800,2000, TAB Metformin HCl (Metformin HCl) 500 Mg Tablet 1000 MG PO BID WITH MEALS, TAB TAKES 2 (500MG) TABS Pantoprazole Sodium (Pantoprazole Sodium) 20 Mg Tablet.dr 20 MG PO DAILY, TAB Potassium Chloride (Potassium Chloride) 20 Meq Tablet.er 20 MEQ PO DAILY, TAB GIVE WITH FOOD AND 4-8OZ OF FLUID Discontinued Medications: Ibuprofen (Ibuprofen) 800 Mg Tablet 800 MG PO Q8H PRN for PAIN-MILD, TAB Nargis Alex Jan 18, 2023 10:27 NARGIS ALEX DO Jan 18, 2023 10:29
--- NOTE | 2023-01-18 10:29 | Discharge Summary ---
Discharge Summary Hospital Course Was the Problem List Reviewed?: Yes Problems/Dx: (1) Cholecystitis, acute with cholelithiasis Status: Acute (2) Cardiomyopathy Status: Chronic (3) CAD (coronary artery disease) Status: Chronic Qualifiers: Qualified Codes: I25.10 - Atherosclerotic heart disease of [place] coronary artery without angina pectoris (4) Tobacco abuse Status: Chronic (5) HTN (hypertension) Status: Chronic (6) HLD (hyperlipidemia) Status: Chronic (7) Ischemic cardiomyopathy Status: Chronic (8) T2DM (type 2 diabetes mellitus) Status: Chronic Hospital Course Date of Admission: Jan 10, 2023 at 06:14 Admission Diagnosis : Family Physician/Provider: Magy Kimbrough Professional Fee Coder Date of Discharge: 01/18/23 Discharge Diagnosis: [ ] Hospital Course: Very lengthy and complicated course after she was admitted to ICU for gallbladder disease with evidence of infection requiring empiric abx and underwent choly but had a lengthy ICU course due to cardiac and respiratory issues. Completed abx and ultimately was able to regain function. ERCP was though to be necessary but labs returned to near normal but will have close f/u with Dr Walker to evaluate the need for that. Overall prognosis poor given her debilitated status and NH at 62yo. Labs and Pending Lab Test: Laboratory Tests 01/17/23 11:31: Glucometer 164H 01/17/23 15:57: Glucometer 103 01/18/23 05:13: Glucometer 127H 01/18/23 05:28: Sodium Level 141, Potassium Level 3.5L, Chloride Level 111H, Carbon Dioxide Level 20L, Anion Gap 10, Blood Urea Nitrogen 6L, Creatinine 0.59L, Estimat Glomerular Filtration Rate 103, BUN/Creatinine Ratio 10, Glucose Level 130H, Calcium Level 8.6, Corrected Calcium 9.9, Phosphorus Level 2.7, Magnesium Level 1.4L, Total Bilirubin 0.6, Aspartate Amino Transf (AST/SGOT) 18, Alanine Aminotransferase (ALT/SGPT) 46, Alkaline Phosphatase 155H, Total Protein 5.4L, Albumin 2.4L 01/18/23 05:29: White Blood Count 2.9L, Red Blood Count 3.23L, Hemoglobin 10.1L, Hematocrit 30L, Mean Corpuscular Volume 93, Mean Corpuscular Hemoglobin 31, Mean Corpuscular Hemoglobin Concent 34, Red Cell Distribution Width 12.9, Platelet Count 189, Mean Platelet Volume 11.5, Immature Granulocyte % (Auto) 1, Neutrophils (%) (Auto) 75, Lymphocytes (%) (Auto) 14, Monocytes (%) (Auto) 7, Eosinophils (%) (Auto) 3, Basophils (%) (Auto) 1, Neutrophils # (Auto) 2.2, Lymphocytes # (Auto) 0.4L, Monocytes # (Auto) 0.2, Eosinophils # (Auto) 0.1, Basophils # (Auto) 0.0, Immature Granulocyte # (Auto) 0.0 Microbiology 01/16/23 C. difficile GDH Antigen & Toxins - Final, Complete 01/12/23 Urine Culture - Final, Complete NO GROWTH 01/12/23 Blood Culture - Final, Complete No growth 01/10/23 MRSA Screen - Final, Complete MRSA not isolated Home Meds Active Oxyir Tablet (Oxycodone HCl) 5 Mg Tab 5 Mg PO Q4HR PRN Children's Aspirin (Aspirin) 81 Mg Tab.chew 81 Mg PO DAILY Lisinopril 5 Mg Tablet 2.5 Mg PO DAILY Metoprolol Tartrate 25 Mg Tablet 12.5 Mg PO BID Vancomycin HCl 125 Mg Capsule 125 Mg PO QID Reported Ibuprofen 800 Mg Tablet 800 Mg PO Q8H PRN Guaifenesin 100 Mg/5 Ml Liquid 5 Ml PO Q4H PRN Tylenol Extra Strength (Acetaminophen) 500 Mg Tablet 1,000 Mg PO Q6H PRN Metformin HCl 500 Mg Tablet 1,000 Mg PO BID WITH MEALS TAKES 2 (500MG) TABS Levetiracetam 500 Mg Tablet 500 Mg PO 0800,2000 Tylenol Extra Strength (Acetaminophen) 500 Mg Tablet 1,000 Mg PO BID Pantoprazole Sodium 20 Mg Tablet.dr 20 Mg PO DAILY Potassium Chloride 20 Meq Tablet.er 20 Meq PO DAILY GIVE WITH FOOD AND 4-8OZ OF FLUID Clopidogrel (Clopidogrel Bisulfate) 75 Mg Tablet 75 Mg PO DAILY Glipizide 5 Mg Tablet 2.5 Mg PO DAILY- 30 MINUTES BEFORE AM MEAL TAKES OF A 5MG TAB Bumetanide 1 Mg Tablet 1 Mg PO DAILY Atorvastatin Calcium 80 Mg Tablet 80 Mg PO 1800 Albuterol Sulfate 2.5 Mg/3 Ml (0.083 %) Vial.neb 3 Ml NEB Q12H PRN Assessment/Pt Instructions NH rounds Discharge Planning: <30 minutes discharge planning Discharge Instructions Discharge Diet: No Restrictions Discharge Physical Examination Vital Signs Vital Signs Date Time Temp Pulse Resp B/P (MAP) Pulse Ox O2 Delivery O2 Flow Rate FiO2 01/18/23 07:45 36.5 82 18 113/75 (88) 95 Room Air 01/16/23 00:20 0.50 0.50 01/15/23 04:00 45 General Appearance: No Apparent Distress, WD/WN, Chronically ill Allergies: Coded Allergies: No Known Drug Allergies (Unverified , 08/21/10) Discharge Summary Date of Admission Jan 10, 2023 at 06:14 Date of Discharge Discharge Date: Jan 18, 2023 Discharge Diagnosis (1) Severe sepsis Status: Acute Assessment & Plan: - HDS this AM, continue IV antibiotics and gentle hydration, blood cultures + Ecoli (2) Bacteremia due to Escherichia coli Status: Acute (3) NSTEMI (non-ST elevated myocardial infarction) Status: Acute Assessment & Plan: - Cardiology consulted, patient previously recommended to get bypass surgery but did not have it done, currently asymptomatic, Type 2 CT due to severe sepsis (4) Cholecystitis, acute with cholelithiasis Status: Acute Assessment & Plan: - Dr Walker consulted, appreciate recommendations (5) Hypomagnesemia Status: Acute Assessment & Plan: - Replace and repeat in AM (6) HFrEF (heart failure with reduced ejection fraction) Status: Chronic (7) CAD (coronary artery disease) Status: Chronic (8) HTN (hypertension) Status: Chronic Assessment & Plan: - hypotensive on admission, holding any BP meds Plan: ERCP soon She will return to [place] Clinical Quality Measures DVT/VTE Risk/Contraindication: Contraindications-Pharm: Other *list below* Other: OR MISSY ORTEGA DO Jan 18, 2023 10:29
--- NOTE | 2023-01-18 10:43 | Progress Note - Cardiology ---
Cardiology SOAP Progress Note Subjective: Sitting up in recliner States she is going home today No c/o CP, SOB or palpitations States she feels well Objective: I&O/Vital Signs 01/18/23 01/18/23 01/18/23 01/18/23 03:10 07:12 07:33 07:45 Temp 36.2 36.5 Pulse 76 82 Resp 18 18 B/P (MAP) 115/85 (95) 113/75 (88) Pulse Ox 97 98 98 95 O2 Delivery Room Air Room Air Room Air Room Air 01/18/23 01/18/23 11:31 13:50 Temp 36.2 36.2 Pulse 79 79 Resp 18 18 B/P (MAP) 109/77 (88) 109/77 Pulse Ox 96 96 O2 Delivery Room Air Room Air O2 Flow Rate 0.50 01/18/23 00:00 Intake Total 1582 ml Output Total 425 ml Balance 1157 ml Weight (Pounds): 146 Weight (Calculated Kilograms): 66.705718 Constitutional: AAO x 3, well-developed, well-nourished Respiratory: No accessory muscle use, No respiratory distress; chest expansion is symmetric, chest is bilaterally symmetric, other (diminished lower lobes bilat with crackles) Cardiovascular: regular rate-rhythm; No JVD; S1 and S2 Gastrointestional: soft; No guarding; audible bowel sounds Extremities: other (mild bilat LE swelling) Neurologic/Psychiatric: other (moves all limbs equally) Skin: normal color, warm/dry; No rash on exposed areas, No ulcerations on exp osed areas Results/Procedures: Labs Laboratory Tests 01/17/23 15:57: Glucometer 103 01/18/23 05:13: Glucometer 127H 01/18/23 05:28: Sodium Level 141, Potassium Level 3.5L, Chloride Level 111H, Carbon Dioxide Level 20L, Anion Gap 10, Blood Urea Nitrogen 6L, Creatinine 0.59L, Estimat Glomerular Filtration Rate 103, BUN/Creatinine Ratio 10, Glucose Level 130H, Calcium Level 8.6, Corrected Calcium 9.9, Phosphorus Level 2.7, Magnesium Level 1.4L, Total Bilirubin 0.6, Aspartate Amino Transf (AST/SGOT) 18, Alanine Aminotransferase (ALT/SGPT) 46, Alkaline Phosphatase 155H, Total Protein 5.4L, Albumin 2.4L 01/18/23 05:29: White Blood Count 2.9L, Red Blood Count 3.23L, Hemoglobin 10.1L, Hematocrit 30L, Mean Corpuscular Volume 93, Mean Corpuscular Hemoglobin 31, Mean Corpuscular Hemoglobin Concent 34, Red Cell Distribution Width 12.9, Platelet Count 189, Mean Platelet Volume 11.5, Immature Granulocyte % (Auto) 1, Neutrophils (%) (Auto) 75, Lymphocytes (%) (Auto) 14, Monocytes (%) (Auto) 7, Eosinophils (%) (Auto) 3, Basophils (%) (Auto) 1, Neutrophils # (Auto) 2.2, Lymphocytes # (Auto) 0.4L, Monocytes # (Auto) 0.2, Eosinophils # (Auto) 0.1, Basophils # (Auto) 0.0, Immature Granulocyte # (Auto) 0.0 01/18/23 11:45: Glucometer 157H Microbiology 01/16/23 C. difficile GDH Antigen & Toxins - Final, Complete 01/12/23 Urine Culture - Final, Complete NO GROWTH 01/12/23 Blood Culture - Final, Complete No growth 01/10/23 MRSA Screen - Final, Complete MRSA not isolated Procedures NAME: TRISTON NIEVES Prem [facility] REC#: [id number] PT STATUS: ADM IN : 1960 PHYSICIAN: MISSY ORTEGA DO ADMIT DATE: 01/10/23 Signed Date of Exam:01/18/23 CHEST 1 VIEW, AP/PA ONLY INDICATION: Sepsis Frontal chest obtained at 5:50 a.m. and compared to yesterday. There is cardiomegaly. There is extensive bilateral infiltrate. There is diffuse central vascular congestion. There is increasing left pleural fluid compared to the prior study. There is no pneumothorax. Right-sided PICC line is unchanged. IMPRESSION: Unchanged extensive bilateral infiltrates and central vascular congestion with edema. A mild increase in left pleural effusion compared to the prior study. No pneumothorax. Dictated by: Dictated on workstation # [id number] Dict: 01/18/23 0814 Trans: 01/18/23 1032 CV [id number] Interpreted by: SANDHYA FLORES MD Electronically signed by: SANDHYA FLORES MD 01/18/23 1032 A/P: Assessment: [id number] myocardial infarction, likely type 2 NSTEMI in the setting of E. coli bacteremia and associated sepsis. - cont to monitor - Troponin downtrended (0.06-0.20-0.12) Pneumonia - management per Medical services Cholecystitis - management per Dr. Walker - s/p lap cholecystectomy - recommendation for ERCP as per surgical report - LFTs downtrending Hypotension - resolved - likely d/t sepsis - required pressor support - has been off Sepsis and mild to mod leukopenia and anemia - management per Medical services Ischemic CM - TTE demonstrates EF 40-45% with akinetic apex, hypokinesis of anteroseptum, grade 3 Diastolic dysfunction and mild MS (mean MVgradient of 5mmHg with HR of 95bpm) by Dr. Vargas on 01-11-23 Acute on chronic systolic/diastolic CHF H/O CAD - status post TX and PCI in the past with known 3-vessel severe CAD, surgical turn down. HTN Plan: Pnuemonia - management per medical services CAD - continue antiplatelet tx with Plavix and ASA - continue low dose BB and titrate as tolerated ICM - continue lisinopril, titrate dose as tolerated Acute on chronic systolic CHF - continue to treat with diuretics Monitor lab Will need out pt f/u with cardiology services TAMMY MIKE Jan 18, 2023 10:42
[2023-01-18 11:31] VITALS: BP 109/77
[2023-01-18] MEDS: ACETAMINOPHEN 325 MG TABLET PO PRN (12:09)
--- NOTE | 2023-01-18 13:20 | Progress Note - Cardiology ---
Cardiology SOAP Progress Note Subjective: No cp or palp or syncope No shortness of breath No n/v/d Objective: I&O/Vital Signs 01/18/23 01/18/23 01/18/23 01/18/23 03:10 07:12 07:33 07:45 Temp 36.2 36.5 Pulse 76 82 Resp 18 18 B/P (MAP) 115/85 (95) 113/75 (88) Pulse Ox 97 98 98 95 O2 Delivery Room Air Room Air Room Air Room Air 01/18/23 11:31 Temp 36.2 Pulse 79 Resp 18 B/P (MAP) 109/77 (88) Pulse Ox 96 O2 Delivery Room Air 01/18/23 00:00 Intake Total 1582 ml Output Total 425 ml Balance 1157 ml Weight (Pounds): 146 Weight (Calculated Kilograms): 66.356785 Constitutional: AAO x 3, well-developed, well-nourished Respiratory: No accessory muscle use, No respiratory distress; chest expansion is symmetric, chest is bilaterally symmetric, other (diminished lower lobes bilat with crackles) Cardiovascular: regular rate-rhythm; No JVD; S1 and S2 Gastrointestional: soft; No guarding; audible bowel sounds Extremities: other (mild bilat LE swelling) Neurologic/Psychiatric: other (moves all limbs equally) Skin: normal color, warm/dry; No rash on exposed areas, No ulcerations on exposed areas Results/Procedures: Labs Laboratory Tests 01/17/23 15:57: Glucometer 103 01/18/23 05:13: Glucometer 127H 01/18/23 05:28: Sodium Level 141, Potassium Level 3.5L, Chloride Level 111H, Carbon Dioxide Level 20L, Anion Gap 10, Blood Urea Nitrogen 6L, Creatinine 0.59L, Estimat Glomerular Filtration Rate 103, BUN/Creatinine Ratio 10, Glucose Level 130H, Calcium Level 8.6, Corrected Calcium 9.9, Phosphorus Level 2.7, Magnesium Level 1.4L, Total Bilirubin 0.6, Aspartate Amino Transf (AST/SGOT) 18, Alanine Aminotransferase (ALT/SGPT) 46, Alkaline Phosphatase 155H, Total Protein 5.4L, Albumin 2.4L 01/18/23 05:29: White Blood Count 2.9L, Red Blood Count 3.23L, Hemoglobin 10.1L, Hematocrit 30L, Mean Corpuscular Volume 93, Mean Corpuscular Hemoglobin 31, Mean Corpuscular Hemoglobin Concent 34, Red Cell Distribution Width 12.9, Platelet Count 189, Mean Platelet Volume 11.5, Immature Granulocyte % (Auto) 1, Neutrophils (%) (Auto) 75, Lymphocytes (%) (Auto) 14, Monocytes (%) (Auto) 7, Eosinophils (%) (Auto) 3, Basophils (%) (Auto) 1, Neutrophils # (Auto) 2.2, Lymphocytes # (Auto) 0.4L, Monocytes # (Auto) 0.2, Eosinophils # (Auto) 0.1, Basophils # (Auto) 0.0, Immature Granulocyte # (Auto) 0.0 01/18/23 11:45: Glucometer 157H Microbiology 01/16/23 C. difficile GDH Antigen & Toxins - Final, Complete 01/12/23 Urine Culture - Final, Complete NO GROWTH 01/12/23 Blood Culture - Final, Complete No growth 01/10/23 MRSA Screen - Final, Complete MRSA not isolated Laboratory Tests 01/17/23 04:20 01/18/23 05:28 01/18/23 05:29 A/P: Assessment: [id number] myocardial infarction, likely type 2 NSTEMI in the setting of E. coli bacteremia and associated sepsis. - cont to monitor - Troponin downtrended (0.06-0.20-0.12) Pneumonia - management per Medical services Cholecystitis - management per Dr. Walker - s/p lap cholecystectomy - recommendation for ERCP as per surgical report - LFTs downtrending Hypotension - resolved - likely d/t sepsis - required pressor support - has been off Sepsis and mild to mod leukopenia and anemia - management per Medical services Ischemic CM - TTE demonstrates EF 40-45% with akinetic apex, hypokinesis of anteroseptum, grade 3 Diastolic dysfunction and mild MS (mean MVgradient of 5mmHg with HR of 95bpm) by Dr. Vargas on 01-11-23 Acute on chronic systolic/diastolic CHF H/O CAD - status post OH and PCI in the past with known 3-vessel severe CAD, surgical turn down. HTN Plan: Pnuemonia and blood counts - management per medical services CAD - continue antiplatelet tx with Plavix and ASA - continue low dose BB and titrate as tolerated ICM - continue lisinopril, titrate dose as tolerated Acute on chronic systolic CHF - continue to treat with diuretics Monitor lab Will need out pt f/u with cardiology services NANCY MAYES MD [facility] Jan 18, 2023 13:20
[2023-01-18 13:50] VITALS: BP 109/77
[2023-01-19] MEDS ORDERED: PANTOPRAZOLE 40 MG (PROTONIX) TAB PO SCH (09:00)
== END 2023-01-18 13:55 | DRG 853 ==
LOC: EDUNIT# 17:08 → ER 17:09 → ICU 01-10 06:14 → 4TH 01-16 15:51
PROVIDERS: ADMIT Internal Medicine; ATTEND Internal Medicine
PROC: BF502Z0 Other Imaging of Bile Ducts using Fluorescing Agent, Intraoperative (ICD-10-PCS; 2023-01-11)
PROC: 0FT44ZZ Resection of Gallbladder, Percutaneous Endoscopic Approach (ICD-10-PCS; principal; 2023-01-11 11:29)
DX: A41.51 Sepsis due to Escherichia coli [E. coli] (principal); I21.A1 Myocardial infarction type 2; I50.43 Acute on chronic combined systolic (congestive) and diastolic (congestive) heart failure; J18.9 Pneumonia, unspecified organism; J80 Acute respiratory distress syndrome; K80.66 Calculus of gallbladder and bile duct with acute and chronic cholecystitis without obstruction; K83.09 Other cholangitis; J44.0 Chronic obstructive pulmonary disease with (acute) lower respiratory infection; R65.20 Severe sepsis without septic shock; Z20.822 Contact with and (suspected) exposure to COVID-19; I11.0 Hypertensive heart disease with heart failure; I95.1 Orthostatic hypotension; E86.0 Dehydration; E83.42 Hypomagnesemia; E11.9 Type 2 diabetes mellitus without complications; Z95.5 Presence of coronary angioplasty implant and graft; F17.210 Nicotine dependence, cigarettes, uncomplicated; Z79.84 Long term (current) use of oral hypoglycemic drugs; I25.5 Ischemic cardiomyopathy; D69.6 Thrombocytopenia, unspecified; G40.909 Epilepsy, unspecified, not intractable, without status epilepticus; K72.90 Hepatic failure, unspecified without coma; I25.10 Atherosclerotic heart disease of native coronary artery without angina pectoris; E78.00 Pure hypercholesterolemia, unspecified; E03.9 Hypothyroidism, unspecified; I73.9 Peripheral vascular disease, unspecified; F32.A Depression, unspecified; F41.9 Anxiety disorder, unspecified; Z91.199 Patient's noncompliance with other medical treatment and regimen due to unspecified reason; Z95.1 Presence of aortocoronary bypass graft
CPT/HCPCS: 36415; 36569; 51702; 71045; 71260; 74177; 74181; 76000; 76937; 80048; 80053; 80076; 80202; 80306; 80320; 80329; 81000; 82140; 82150; 82330; 82805; 82947; 83605; 83690; 83735; 83880; 84100; 84484; 85007; 85025; 85027; 85610; 85652; 85730; 86141; 87040; 87077; 87081; 87088; 87186; 87324; 87449; 87636; 88304; 93005; 93041; 93306; 94640; 94660; 94664; 94760; 96361; 96365; 96367